=== PATIENT | male | born 1970 | race Caucasian/White ===

== ENCOUNTER 2019-02-01 21:31 | Inpatient (IN) | payer SELFPAY ==
[~2019-02-01] VITALS: Ht 188 cm; Wt 99.8 kg
[2019-02-01] MEDS: LIDOCAINE DRIP 500 ML IV SCH ×2 (21:15→22:15)
[2019-02-01] MEDS: LIDOCAINE BOLUS 100 MG/5 ML (IMS) SYR IV ONE ×2 (21:15→22:15)
[~2019-02-01 21:31] MED LIST: ACHD5005 PO; AMOX500C2 PO; ASPIRIN 81 MG CHEW (CHILDREN'S ASA) ONE; FLT05NA16 NSEACH; HEParin 1000 UNIT/ML (10ML VIAL) FOR BOLUS ONE; HYDR-3731 PO; morphine INJ 10 MG/ML 1ML (SYR OR VIAL) ONE
[2019-02-01] MEDS ORDERED: HEParin DRIP 25000 UNIT/500ML 500 ML IV ONE (21:32)
[2019-02-01] MEDS ORDERED: morphine INJ 10 MG/ML 1ML (SYR OR VIAL) IV STA (21:34)
[2019-02-01] MEDS ORDERED: ASPIRIN 81 MG CHEW (CHILDREN'S ASA) PO ONE (21:45)
--- NOTE | 2019-02-01 21:51 | ED Chest Pain ---
General Chief Complaint: Chest Pain Stated Complaint: CHEST PAIN,SOB Source: patient History of Present Illness Date Seen by Provider: Feb 01, 2019 Time Seen by Provider: 21:31 Initial Comments PT ARRIVES VIA POV FORM HOME C/O SUDDEN ONSET OF CHEST PAIN, SHORTNESS OF BREATH, PAIN AND NUMBNESS IN LEFT ARM, PAIN IN LEFT SHOULDER BLADE AREA + SWEATS + NAUSEA, NO VOMITING + SHORTNESS OF BREATH NO SWELLING IN LEGS/FEET OR PAIN IN CALVES NO HISTORY OF SIMILAR PT DENIES ANY PRIOR MEDICAL PROBLEMS OF ANY KIND PT SMOKES 1 PPD, USES THC AND METH ON REGULAR BASIS--LAST SMOKED METH 3 DAYS AGO. DENIES IV USE DENIES ETOH PCP: NONE Allergies and Home Medications Allergies Coded Allergies: No Known Drug Allergies (Unverified , 05/29/11) Home Medications Fluticasone Propionate 16 Gm [place], 2 SPRAYS NSEACH DAILY Prescribed by: OSBALDO PIRES on 09/19/12 1019 Hydrocodone/Acetaminophen 1 Each Tablet, 1 EACH PO Q4H Prescribed by: DELVIN LOBATO on 03/19/16 1257 Patient Home Medication List Home Medication List Reviewed: Yes Review of Systems Review of Systems Constitutional: see HPI, diaphoresis Respiratory: See HPI, Shortness of Air Cardiovascular: See HPI, Chest Pain; Denies Edema, Denies Lightheadedness, Denies Palpitations, Denies Syncope Gastrointestinal: See HPI, Nausea; Denies Vomiting Genitourinary: No Symptoms Reported Musculoskeletal: see HPI Skin: no symptoms reported Psychiatric/Neurological: Anxiety Endocrine: No Symptoms Reported Hematologic/Lymphatic: No Symptoms Reported Past Fbbavoe-Rsjcpw-Gknwnw Hx Patient Social History Alcohol Use: Denies Use Recreational Drug Use: Yes (SMOKES METH AND THC) Drug of Choice: METH, THC Smoking Status: Current Everyday Smoker (1 PPD) Type Used: Cigarettes Recent Foreign Travel: No Contact w/Someone Who Travel: No Recent Hopitalizations: No Seasonal Allergies Seasonal Allergies: No Past Medical History Surgeries: Yes (LEFT SHOULDER BICEPS TENDON) Orthopedic Respiratory: No Cardiac: No Neurological: No Genitourinary: No Gastrointestinal: No Musculoskeletal: Yes (LEFT SHOULDER SURGERY) Endocrine: No HEENT: No Cancer: No Psychosocial: No Integumentary: No Blood Disorders: No Family Medical History Heart Disease, Diabetes Physical Exam Vital Signs Vital Signs - First Documented 02/01/19 21:32 Temp 97.6 Pulse 92 Resp 18 B/P (MAP) 114/80 (91) Pulse Ox 99 O2 Delivery Room Air Capillary Refill : Height, Weight, BMI Height: 6'" Weight: 220lbs. oz. 99.805039di; BMI Method:Stated General Appearance: Anxious, Mild Distress, Other (CONSTANT MOVEMENTS, REEKS OF CIGARETTES) HEENT: Other (POOR DENTITION) Neck: Full Range of Motion, Normal Inspection, Non Tender, Supple; No Carotid Bruit, No JVD Respiratory: Chest Non Tender, Normal Breath Sounds, No Accessory Muscle Use, No Respiratory Distress Cardiovascular: Regular Rate, Rhythm, No Edema, No JVD, No Murmur, Normal Peripheral Pulses Gastrointestinal: Normal Bowel Sounds, No Organomegaly, No Pulsatile Mass, Non Tender, Soft Extremity: Normal Capillary Refill, Normal Inspection, Normal Range of Motion, Non Tender, No Calf Tenderness, No Pedal Edema Neurologic/Psychiatric: Alert, Oriented x3, No Motor/Sensory Deficits, 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 II- XII Norm as Tested Skin: Cool, Diaphoresis, Pallor Critical Care Note Critical Care Start Time: 21:31 Stop Time: 22:20 Total Time (minutes) 49 Progress SEE NOTES Progress/Results/Core Measures Results/Orders Lab Results Laboratory Tests Test 02/01/19 21:38 Range/Units White Blood Count 10.1 4.3-11.0 10^3/uL Red Blood Count 4.86 4.35-5.85 10^6/uL Hemoglobin 14.7 13.3-17.7 G/DL Hematocrit 43 40-54 % Mean Corpuscular Volume 88 80-99 FL Mean Corpuscular Hemoglobin 30 25-34 PG Mean Corpuscular Hemoglobin Concent 34 32-36 G/DL Red Cell Distribution Width 13.7 10.0-14.5 % Platelet Count 370 130-400 10^3/uL Mean Platelet Volume 9.7 7.4-10.4 FL Neutrophils (%) (Auto) 45 42-75 % Lymphocytes (%) (Auto) 41 12-44 % Monocytes (%) (Auto) 12 0-12 % Eosinophils (%) (Auto) 2 0-10 % Basophils (%) (Auto) 0 0-10 % Neutrophils # (Auto) 4.5 1.8-7.8 X 10^3 Lymphocytes # (Auto) 4.2 H 1.0-4.0 X 10^3 Monocytes # (Auto) 1.2 H 0.0-1.0 X 10^3 Eosinophils # (Auto) 0.2 0.0-0.3 10^3/uL Basophils # (Auto) 0.0 0.0-0.1 10^3/uL Prothrombin Time 13.9 12.2-14.7 SEC INR Comment 1.0 0.8-1.4 Activated Partial Thromboplast Time 26 24-35 SEC Sodium Level 141 135-145 MMOL/L Potassium Level 3.6 3.6-5.0 MMOL/L Chloride Level 105 98-107 MMOL/L Carbon Dioxide Level 22 21-32 MMOL/L Anion Gap 14 5-14 MMOL/L Blood Urea Nitrogen 15 7-18 MG/DL Creatinine 0.91 0.60-1.30 MG/DL Estimat Glomerular Filtration Rate > 60 BUN/Creatinine Ratio 16 Glucose Level 72 70-105 MG/DL Calcium Level 10.3 H 8.5-10.1 MG/DL Corrected Calcium 10.1 8.5-10.1 MG/DL Magnesium Level 1.6 1.6-2.4 MG/DL Total Bilirubin 0.3 0.1-1.0 MG/DL Aspartate Amino Transf (AST/SGOT) 13 5-34 U/L Alanine Aminotransferase (ALT/SGPT) 11 0-55 U/L Alkaline Phosphatase 81 40-136 U/L Total Creatine Kinase 80 30-200 U/L Creatine Kinase MB 2.0 <6.6 NG/ML Myoglobin 26.9 10.0-92.0 NG/ML Troponin I 0.179 H <0.028 NG/ML B-Type Natriuretic Peptide 14.2 <100.0 PG/ML Total Protein 7.3 6.4-8.2 GM/DL Albumin 4.3 3.2-4.5 GM/DL Amylase Level 64 25-125 U/L Lipase 23 8-78 U/L Serum Alcohol < 10 <10 MG/DL My Orders Orders - ALYSSA ANAYA DO Cbc With Automated Diff (02/01/19 21:34) Magnesium (02/01/19 21:34) Chest 1 View, Ap/Pa Only (02/01/19 21:34) Ekg Tracing (02/01/19 21:34) Cardiac Profile 1 (02/01/19 21:34) Comprehensive Metabolic Panel (02/01/19 21:34) Myoglobin Serum (02/01/19 21:34) Protime With Inr (02/01/19:34) Partial Thromboplastin Time (02/01/19:34) O2 (02/01/19:34) Monitor-Rhythm Ecg Trace Only (02/01/19:34) Lipid Panel (02/02/19 06:00) Ed Iv/Invasive Line Start (02/01/19:34) Creatine Kinase (02/01/19:34) Creatine Kinase Mb (02/01/19:34) Lipase (02/01/19:34) Amylase (02/01/19:34) BNP (02/01/19:34) Aspirin Chewable Tablet (Baby Aspirin Ch (02/01/19 21:45) Morphine Injection (Morphine Injection (02/01/19:34) Heparin (Bolus Per Protocol) (Heparin (B (02/01/19 21:45) Morphine Injection (Morphine Injection (02/01/19:31) Heparin (Bolus Per Protocol) (Heparin (B (02/01/19 21:31) Heparin Drip 10508 Unit/500ml (Heparin (02/01/19 21:32) Alcohol (02/01/19 21:49) Drug Screen Stat (Urine) (02/01/19 21:49) Ua Culture If Indicated (02/01/19 21:49) Clopidogrel Tablet (Plavix Tablet) (02/01/19 22:00) Clopidogrel Tablet (Plavix Tablet) (02/01/19 21:55) Lidocaine 1% Inj 20 Ml (Xylocaine 1% Inj (02/01/19 21:57) Heparin (Bolus Per Protocol) (Heparin (B (02/01/19 21:57) Ns Iv 1000 Ml (Sodium Chloride 0.9%) (02/01/19 21:57) Nitro Drip 49254 Mcg/D5w (Nitroglycerin (02/01/19 21:57) Heparin (Crown Wheel Assembler) (Heparin (Crown Wheel Assembler)) (02/01/19 21:57) Medications Given in ED Current Medications Medications Dose Ordered Sig/Maggie Route Start Time Stop Time Status Last Admin Dose Admin Aspirin 324 mg ONCE ONCE PO 02/01/19 21:45 02/01/19 21:46 DC 02/01/19 21:32 324 MG Clopidogrel Bisulfate 300 mg ONCE ONCE PO 02/01/19 22:00 02/01/19 22:02 DC 02/01/19 22:02 300 MG Vital Signs/I&O 02/01/19 02/01/19 02/01/19 21:32 21:34 21:42 Temp 97.6 Pulse 92 Resp 18 B/P (MAP) 114/80 (91) Pulse Ox 99 96 O2 Delivery Room Air Room Air Room Air Progress Progress Note : Progress Note PT GIVEN ASPIRIN NTG HELD DUE TO BP 106 SYSTOLIC GIVEN MORPHINE X 8 MG TOTAL WITHOUT SIGNIFICANT RELIEF IN PAIN PT STARTED ON HEPARIN--GIVEN BOLUS AND THEN PLACED ON DRIP GIVEN PLAVIX 300 MG PO PT NOTED TO BE IN BI-AND TRI-GEMINY, WITH R-ON-T COMPLEXES 2207--CALLED DR. ALMAZAN AND INFORMED HIM--AGREED TO LIDOCAINE BOLUS AND DRIP 2209--WENT IN ROOM AND PT NOTED TO BE IN V-FIB, AND SUDDENLY BECAME UNRESPONSIVE, PULSELESS AND SNORING BREATHING. PT IMMEDIATELY DEFIBRILLATED AT 120 JOULES WITH IMMEDIATE ROSC, PT AWAKE AND ABLE TO TALK. LIDOCAINE BOLUS GIVEN, DRIP BEING HUNG 2213--RUN OF V-TACH WITH PULSE, PT REMAINED AWAKE AND ALERT AND TALKING 2113--ANOTHER RUN OF V-TACH WITH PULSE, AGAIN REMAINED AWAKE AND ALERT AND TALKING 2114--ANOTHER RUN OF V-TACH WITH PULSE, AGAIN REMAINED AWAKE AND ALERT AND TALKING--GIVEN AMIODARONE BOLUS 2219--BAILING MACHINE OPERATOR STAFF HERE TO TAKE PT. Initial ECG Impression Date: Feb 01, 2019 Initial ECG Impression Time: 21:34 Initial ECG Rate: 80 Initial ECG Impression: Acute LA (EXTENSIVE ANTERIOR INFARCT) Initial ECG Comparisson: No Previous ECG Available Diagnostic Imaging Comments CXR--MILD VASCULAR CONGESTION Reviewed: Reviewed by Me Departure Communication (Admissions) 2133--PAGING DR. ALMAZAN, ASSISTANT REAL ESTATE MANAGER LOGISTICS RESEARCH ENGINEER 2136--SPOKE WITH DR. ALMAZAN, ADVISES TO CALL IN BAILING MACHINE OPERATOR 2137--CALLED CHIEF CHEMIST AND WILL CALL IN BAILING MACHINE OPERATOR 2156--DR. ALMAZAN HERE, CARE TURNED OVER TO HIM Impression Primary Impression: ANTERIOR STEMI Additional Impressions: Illicit drug use Ventricular fibrillation Ventricular tachycardia S/P CARDIAC ARREST DUE TO VENTRICULAR FIBRILLATION Disposition: ADMITTED INPATIENT (TO BAILING MACHINE OPERATOR) Condition: Stable Admissions Decision to Admit Reason: Admit from ER (General) (TO BAILING MACHINE OPERATOR) Decision to Admit/Date: Feb 01, 2019 Time/Decision to Admit Time: 21:35 Departure-Patient Inst. Referrals: NO,LOCAL PHYSICIAN (PCP/Family) Primary Care Physician ALYSSA ANAYA DO Feb 01, 2019 21:51
[2019-02-01 21:54] LABS: BASOPHILS % (AUTO) 0 % (0-10); EOSINOPHILS # (AUTO) 0.2 10^3/uL (0.0-0.3); EOSINOPHILS % (AUTO) 2 % (0-10); HEMATOCRIT 43 % (40-54); HEMOGLOBIN 14.7 G/DL (13.3-17.7); LYMPHOCYTES # (AUTO) 4.2 X 10^3 (1.0-4.0); LYMPHOCYTES % (AUTO) 41 % (12-44); MEAN CORPUSCULAR HEMOGLOBIN 30 PG (25-34); MEAN CORPUSCULAR HGB CONC 34 G/DL (32-36); MEAN CORPUSCULAR VOLUME 88 FL (80-99); MEAN PLATELET VOLUME 9.7 FL (7.4-10.4); MONOCYTES # (AUTO) 1.2 X 10^3 (0.0-1.0); MONOCYTES % (AUTO) 12 % (0-12); NEUTROPHILS # (AUTO) 4.5 X 10^3 (1.8-7.8); NEUTROPHILS % (AUTO) 45 % (42-75); PLATELET COUNT 370 10^3/uL (130-400); RED CELL DISTRIBUTION WIDTH 13.7 % (10.0-14.5); WHITE BLOOD COUNT 10.1 10^3/uL (4.3-11.0)
[2019-02-01] MEDS: HEParin 1000 UNIT/ML (10ML VIAL) FOR BOLUS IV SCH ×2 (21:54→21:56)
[2019-02-01] MEDS ORDERED: CLOPIDOGREL 300 MG (PLAVIX) TABLET PO ONE ×3 (21:55→23:06)
[2019-02-01] MEDS ORDERED: HEParin 1000 UNIT/ML (10ML VIAL) FOR BOLUS ONE (21:57)
[2019-02-01] MEDS ORDERED: LIDOCAINE 1% INJ 20 ML 20 ML VIAL ONE (21:57)
[2019-02-01] MEDS ORDERED: NS IV 1000 ML 1,000 ML ONE ×2 (21:57→23:10)
[2019-02-01] MEDS ORDERED: HEParin (CATH LAB) 2,000 ML IV ONE (21:57)
[2019-02-01] MEDS ORDERED: NITRO DRIP 25000 MCG/D5W 250 ML IV ONE (21:57)
[2019-02-01 22:05] LABS: PROTHROMBIN TIME PATIENT 13.9 SEC (12.2-14.7)
[2019-02-01] MEDS ORDERED: MIDAZOLAM 5 MG/5 ML (VERSED) VIAL ONE (22:06)
[2019-02-01] MEDS ORDERED: fentaNYL INJECTION 100 MCG/2 ML AMP ONE (22:06)
--- NOTE | 2019-02-01 22:09 | Cardiology History & Physical ---
HPI-Cardiology Cardiology H&P Date of Admission 02/01/19 Primary Care Physician No,Local Physician Attending Physician Consulting Physician HPI CC: Chest pain HPI: 48 yo with onset of severe, midsternal chest pain approx one hour ago. It has been associated with diaphoresis and some shortness of breath. Has had nausea. No vomiting or diarrhea. No palp or syncope. Never experienced such pain before. Chronic smoker of cigarettes. Uses marijuana and methamphetamine. Last meth use 4 days ago. Last marijuana use yesterday. Review of Systems-Cardiology Review of Systems Constitutional: No weight loss, No weight gain Eyes: No vision change Ears/Nose/Throat: No ear discharge, No nasal drainage, No recent hearing loss, No ulcerations Respiratory: As described under HPI Cardiovascular: As described under HPI Gastrointestinal: As described under HPI Genitourinary: No dysuria, No hematuria, No urine frequency changes Musculoskeletal: No back pain, No joint pain Skin: No rash, No ulcerations Hematologic: No bleeding abnormalities TUT-Kbgiut-Ewsuas Hx Patient Social History Alcohol Use: Denies Use Recreational Drug Use: Yes (SMOKES METH AND THC) Drug of Choice: METH, THC Smoking Status: Current Everyday Smoker (1 PPD) Type Used: Cigarettes Recent Foreign Travel: No Recent Infectious Disease Expo: No Hospitalization with Isolation: Denies Past Medical History PMH As described under Assessment. Family Medical History Family Medical History: Fam h/o DM II No fam h/o early CAD or SCD Allergies and Home Medications Allergies Coded Allergies: No Known Drug Allergies (Unverified , 05/29/11) Home Medications Fluticasone Propionate 16 Gm [place], 2 SPRAYS NSEACH DAILY Prescribed by: OSBALDO PIRES on 09/19/12 1019 Hydrocodone/Acetaminophen 1 Each Tablet, 1 EACH PO Q4H Prescribed by: DELVIN LOBATO on 03/19/16 1257 Patient Home Medication List Home Medication List Reviewed: Yes Physical Exam-Cardiology Physical Exam Vital Signs/I&O 02/01/19 02/01/19 02/01/19 21:32 21:34 21:42 Temp 97.6 Pulse 92 Resp 18 B/P (MAP) 114/80 (91) Pulse Ox 99 96 O2 Delivery Room Air Room Air Room Air Capillary Refill : Less Than 3 Seconds Constitutional: AAO x 3, well-developed, well-nourished, other (diaphoretic) HEENT: PERRL, EOMI, hearing is well preserved; No xanthelasmas are seen Neck: carotid pulses are 2 + bilaterally, with good upstrokes Respiratory: No accessory muscle use; other (good bilat air entry) Cardiovascular: regular rate-rhythm, S1 and S2, systolic murmur (soft JEREL at card base) Gastrointestinal: No tender; soft; No guarding, No rebound; audible bowel manuel nds Extremities: No clubbing, No cyanosis, No significant edema Neurologic/Psychiatric: oriented x 3, other (moving all limbs equally), grossly intact Skin: No rash, No ulcerations Data Review Labs Laboratory Tests 02/01/19 21:38: White Blood Count 10.1, Red Blood Count 4.86, Hemoglobin 14.7, Hematocrit 43, Mean Corpuscular Volume 88, Mean Corpuscular Hemoglobin 30, Mean Corpuscular Hem oglobin Concent 34, Red Cell Distribution Width 13.7, Platelet Count 370, Mean Platelet Volume 9.7, Neutrophils (%) (Auto) 45, Lymphocytes (%) (Auto) 41, Monocytes (%) (Auto) 12, Eosinophils (%) (Auto) 2, Basophils (%) (Auto) 0, Neutrophils # (Auto) 4.5, Lymphocytes # (Auto) 4.2H, Monocytes # (Auto) 1.2H, Eosinophils # (Auto) 0.2, Basophils # (Auto) 0.0 Laboratory Tests 02/01/19 21:38 A/P-Cardiology Assessment/Admission Diagnosis Acute anterolateral ST elevation MD Chronic tobacco and meth use Admission Status: Inpatient Order (span 2 midnights) Reason for Inpatient Admission: Ac STEMI Discussion and Recomendations Emergency card cath I discussed the rationale, procedure, risks, benefits, potential complications and alternatives of card cath and possible ad hoc cor intervention with him. He understands and wishes to proceed Treat with ASA, Plavix, iv heparin. Beta-cheryl when bp improved (currently SBP 100 mmHg) ALETHEA ALMAZAN MD FACP FAC CCDS Feb 01, 2019 22:09
--- NOTE | 2019-02-01 22:10 | NUR ---
2210- PT IN VTACH. DR. ANAYA AT BEDSIDE. SHOCK AT 120J 2214- VTACH VFIB WITH PULSE 2215- VTACH WITH PULSE 2215- AMIODARONE 300MG ADMINISTERED. LIDOCAINE 100 MG AND LIDOCAINE DRIP STARTED 0- PT TO TEACHER DANCING. Addendum: 02/02/19 at 0014 by [id number] patient is in V Fib shock @ 120 J
[2019-02-01 22:12] LABS: ALANINE AMINOTRANSFERASE 11 U/L (0-55); ALBUMIN 4.3 GM/DL (3.2-4.5); ALKALINE PHOSPHATASE 81 U/L (40-136); AMYLASE 64 U/L (25-125); BILIRUBIN,TOTAL 0.3 MG/DL (0.1-1.0); BUN/CREATININE RATIO 16; CALCIUM 10.3 MG/DL (8.5-10.1); CARBON DIOXIDE 22 MMOL/L (21-32); CHLORIDE 105 MMOL/L (98-107); CREATINE KINASE 80 U/L (30-200); CREATININE SERUM 0.91 MG/DL (0.60-1.30); GFR ESTIMATED > 60; GLUCOSE 72 MG/DL (70-105); LIPASE 23 U/L (8-78); MAGNESIUM 1.6 MG/DL (1.6-2.4); POTASSIUM 3.6 MMOL/L (3.6-5.0); SODIUM 141 MMOL/L (135-145); TOTAL PROTEIN 7.3 GM/DL (6.4-8.2)
[2019-02-01] MEDS ORDERED: EPTIFIBATIDE BOLUS 20 ML IV ONE (22:22)
[2019-02-01] MEDS ORDERED: HEParin (CATH LAB) 1,000 ML IV ONE (22:30)
[2019-02-01] MEDS ORDERED: DOPamine DRIP 250 ML IV ONE (22:56)
[2019-02-01] MEDS: NS IV 1000 ML 1,000 ML IV SCH ×2 (23:00→23:23)
--- NOTE | 2019-02-01 23:34 | Cardiac Procedure Note-CS/ASA ---
Pre-Procedure Note Pre-Op Procedure Note H&P Reviewed The H&P was reviewed, patient examined and no changes noted. Date H&P Reviewed: Feb 01, 2019 Time H&P Reviewed: 22:00 Conscious Sedation Pre-Proced Time 22:00 ASA Score 4 For ASA 3 and 4: Consider anesthesia and medical clearance. Also, for patients with a history of failed moderate sedation consider anesthesia. Airway Lungs Heart ASA score ASA 1: a normal healthy patient ASA 2: a patient with a mild systemic disease (mid diabetes, controlled hypertension, obesity ASA 3: a patient with a severe systemic disease that limits activity (angina, COPD, prior Myocardial infarction) ASA 4: a patient with an incapacitating disease that is a constant threat to life (CHF, renal failure) ASA 5: a moribund patient not expected to survive 24 hrs. (ruptured aneurysm) ASA 6: a declared brain- patient whose organs are being harvested. For emergent operations, add the letter E after the classification Mallampati Classification Grade 2 Sedation Plan Analgesia, Amnesia, Plan communicated to team members, Discussed options with patient/fam, Discussed risks with patient/fam The patient is an appropriate candidate to undergo the planned procedure, sedation, and anesthesia. The patient immediately re-assessed prior to indication. ALETHEA ALMAZAN MD FACP FAC CCDS Feb 01, 2019 23:34
[2019-02-01 23:41] VITALS: BP 103/58
[2019-02-01 23:45] VITALS: BP 96/59
[2019-02-01] MEDS ORDERED: TEMAZEPAM 7.5 MG CAP (RESTORIL) PO PRN (23:45)
[2019-02-01] MEDS ORDERED: PATIENT MAY USE OWN MEDS, ALL PO SCH (23:45)
[2019-02-01] MEDS ORDERED: ACETAMINOPHEN 325 MG TABLET PO PRN (23:45)
[2019-02-02] VITALS (12 sets, daily range): BP systolic 87–122; BP diastolic 66–75
--- NOTE | 2019-02-02 00:12 | CARDIAC CATHETERIZATION ---
DATE OF SERVICE: 02/01/2019 CARDIAC CATHETERIZATION AND CORONARY INTERVENTION REPORT The patient is a 48-year-old man who presented to the emergency room with acute anterolateral ST elevation myocardial infarction. An emergency cardiac catheterization was carried out after having obtained informed consent for cardiac catheterization, possible ad hoc coronary intervention. DESCRIPTION OF PROCEDURE: He was brought to the cardiac catheterization laboratory. Right groin was prepared and draped in the usual sterile fashion. A 1% lidocaine was used for local anesthesia. Modified Seldinger technique was used to advance a 6-Slovenian sheath in the right femoral artery. He had received 5000 units of intravenous heparin in the emergency room and 1000 units per hour infusion was being given, which was stopped at the time of initiation of the cardiac catheterization procedure. We used a 6-Slovenian JL4 guide catheter to engage the left coronary artery and angiography showed ostial occlusion of the left anterior descending. Intervention was carried out as described below. He received a double bolus of Integrilin during the intervention. Following completion of the intervention, we carried out angiography of the right femoral artery, for which we used a 6-Slovenian JR4 catheter. We performed left heart catheterization with a 6-Slovenian pigtail catheter and left ventricular angiography was performed. The pigtail was pulled back and then removed. Angiography of the right femoral artery was carried out through the sheath and Mynx was used to achieve hemostasis following completion of the procedure. PERCUTANEOUS INTERVENTION OF THE ANTERIOR DESCENDING: Following completion of the left coronary diagnostic procedure, we carried out percutaneous intervention of the left anterior descending, which was exhibiting ostial occlusion of the left anterior descending. We used a ChoICE floppy wire to cross the lesion with moderate difficulty. The tip of the wire was placed in the distal vessel. As we were getting ready to advance a balloon, the patient went into ventricular fibrillation. A shock was given. The patient jerked and the catheter and the wire were displaced. We removed the wire and again advanced the guide catheter over a wire and engaged the left coronary and then advanced the ChoICE floppy wire again across the lesion with moderate difficulty and the tip was placed in the distal vessel. We carried out balloon angioplasty at the site of occlusion with Emerge 2.0 x 20 mm balloon. This allowed good antegrade flow into the left anterior descending and we were able to visualize the whole vessel. The balloon was removed. There was still 90% stenosis at the site of the lesion. We advanced Alpine Xience 2.75 x 18 stent. This was carefully positioned to cover the ostial and proximal left anterior descending without projecting the stent into the left circumflex. The stent was deployed at 14 atmospheres. Subsequent angiography revealed 0% residual stenosis and flow throughout the vessel is normal. Flow prior to the procedure was KIRT 0. Following the intervention, flow in the left anterior descending is KIRT 3. The left circumflex artery has a large obtuse marginal that exhibits 80% distal stenosis. This was not intervened on at this time. HEMODYNAMICS: Left ventricular end-diastolic pressure following coronary angiography and coronary intervention was 20 mmHg. Systolic pressure at the time of left heart catheterization was 60 mmHg. There was no significant pressure gradient on pullback across the aortic valve. LEFT VENTRICULAR ANGIOGRAPHY: Left ventricular angiography was carried out in the right anterior oblique projection. In this view, the left ventricular systolic function appears well preserved with an ejection fraction of approximately 55%. There appears to be mild anterolateral hypokinesis. CORONARY ANGIOGRAPHY: Left main coronary artery is free of significant disease. There is proximal and mid vessel calcification of the coronary arteries. Left anterior descending artery was occluded at its ostium. This vessel was intervened on. Following deployment of Alpine Xience 2.75 x 18 mm stent, deployed at 14 atmospheres, there is no significant residual stenosis. Flow throughout the vessel is normal. The left circumflex artery has a large obtuse marginal, which was exhibiting 80% bifurcation stenosis in its distal portion. This was not intervened on. Right coronary artery is dominant and has mild plaque. CONCLUSIONS: 1. Coronary artery disease consisting of complete ostial occlusion of the left anterior descending artery to which successful percutaneous coronary intervention was carried out. Following deployment of Alpine Xience 2.75 x 18 mm stent, there is no significant residual stenosis. A large obtuse marginal of the left circumflex shows 80% bifurcation stenosis in its distal portion. Right coronary artery is dominant and has mild disease. 2. Elevated left ventricular end-diastolic pressure. 3. Well-preserved global left ventricular systolic function with ejection fraction approximately 55%. DISCUSSION AND RECOMMENDATIONS: Dual antiplatelet therapy has been initiated. Statin therapy is being initiated. Because of low blood pressure, he is a suitable candidate for beta blockers at this time. Beta blockers will be given when tolerated by blood pressure. We have advised him to quit smoking immediately and completely. We have advised him to quit the use of amphetamine and any other street drugs immediately and completely. Job ID: [id number] DocumentID: [id number] Dictated Date: 02/01/2019 23:30:06 Ribbon Lap Machine Tender Date: 02/02/2019 00:12:13 Dictated By: ALETHEA ALMAZAN MD, MA, FACP, FACC, MTDD
[2019-02-02] MEDS: NS IV 1000 ML 1,000 ML IV SCH ×3 (02:39→19:32)
[2019-02-02] MEDS: DOPamine DRIP 250 ML IV SCH (02:39)
[2019-02-02 03:38] LABS: BILIRUBIN,URINE NEGATIVE (NEGATIVE); CLARITY,URINE CLEAR; COLOR,URINE YELLOW; GLUCOSE, URINE (UA) NEGATIVE (NEGATIVE); KETONES,URINE NEGATIVE (NEGATIVE); LEUKOCYTE ESTERASE ,URINE 1+ (NEGATIVE); NITRITE,URINE NEGATIVE (NEGATIVE); PH,URINE 5 (5-9); PROTEIN,URINE 2+ (NEGATIVE); UROBILINOGEN,URINE NORMAL (NORMAL)
[2019-02-02 03:47] LABS: HEMOGLOBIN 14.6 G/DL (13.3-17.7); MEAN PLATELET VOLUME 9.6 FL (7.4-10.4); RED CELL DISTRIBUTION WIDTH 13.8 % (10.0-14.5); WHITE BLOOD COUNT 11.9 10^3/uL (4.3-11.0)
[2019-02-02 03:50] LABS: AMPHETAMINE SCREEN, URINE POSITIVE (NEGATIVE); BARBITURATE SCREEN URINE NEGATIVE (NEGATIVE); BENZODIAZEPINES SCREEN URINE NEGATIVE (NEGATIVE); CANNABINOID SCREEN, URINE POSITIVE (NEGATIVE); COCAINE SCREEN URINE NEGATIVE (NEGATIVE); METHADONE STAT NEGATIVE (NEGATIVE); METHAMPHETAMINE SCREEN URINE S POSITIVE (NEGATIVE); OPIATE SCREEN URINE POSITIVE (NEGATIVE); OXYCODONE STAT NEGATIVE (NEGATIVE); PROPOXYPHENE STAT NEGATIVE (NEGATIVE); TRICYCLIC ANTIDEPRESSANTS SCRE NEGATIVE (NEGATIVE)
[2019-02-02 03:52] LABS: BACTERIA,URINE NEGATIVE /HPF; WBC,URINE RARE /HPF
[2019-02-02 04:09] LABS: BUN/CREATININE RATIO 19; CALCIUM 9.4 MG/DL (8.5-10.1); CARBON DIOXIDE 23 MMOL/L (21-32); CHLORIDE 107 MMOL/L (98-107); CREATININE SERUM 0.86 MG/DL (0.60-1.30); GFR ESTIMATED > 60; GLUCOSE 132 MG/DL (70-105); POTASSIUM 4.3 MMOL/L (3.6-5.0); SODIUM 141 MMOL/L (135-145)
[2019-02-02 04:12] LABS: CHOLESTEROL 183 MG/DL (< 200); HDL CHOLESTEROL 39 MG/DL (40-60); TRIGLYCERIDES 77 MG/DL (<150); VLDL CHOLESTEROL 15 MG/DL (5-40)
[2019-02-02] MEDS ORDERED: ATORVASTATIN 40 MG (LIPITOR) TABLET PO SCH (07:00)
--- NOTE | 2019-02-02 07:29 | Diagnostic Imaging Report ---
INDICATION: Chest pain. Comparison made with prior examination from 09/19/2012. FINDINGS: The heart size is normal. There is mild venous congestion. There is no pleural effusion or pneumothorax. The mediastinum is unremarkable. IMPRESSION: Mild central pulmonary venous congestion. Dictated by: Dictated on workstation # [id number]
[2019-02-02] MEDS ORDERED: 0.9% SODIUM CHLORIDE PF INJ 10 ML VIAL IV ONE (07:38)
[2019-02-02] MEDS ORDERED: AMIODARONE (OMNICELL DRIP KIT) 150 MG/3 ML IV ONE (07:38)
[2019-02-02] MEDS ORDERED: AMIODARONE 450 MG/9 ML (CORDARONE) VIAL IV ONE (07:38)
[2019-02-02] MEDS: ASPIRIN 81 MG CHEW (CHILDREN'S ASA) PO SCH (07:49)
[2019-02-02] MEDS: CLOPIDOGREL 75 MG (PLAVIX) TABLET PO SCH (07:49)
[2019-02-02] MEDS: meTOprolol TARTRATE 25 MG (LOPRESSOR) TABLET PO SCH ×2 (07:49→21:49)
[2019-02-02] MEDS ORDERED: ONDANSETRON 4 MG/2 ML (SDV) Z0FRAN ONE (07:51)
[2019-02-02] MEDS ORDERED: ONDANSETRON 4 MG/2 ML (SDV) Z0FRAN IVP PRN (09:15)
--- NOTE | 2019-02-02 10:53 | NUR ---
Initial visit: No spiritual affiliation. I offered empathic listening as the pt shard about his symptoms and decision to go the the hospital. He said his cousin Prudence was his ride, and is also present for support. He thanked me for visiting him and allowing him to share.
--- NOTE | 2019-02-02 12:18 | Progress Note - Cardiology ---
Cardiology SOAP Progress Note Subjective: Some chest soreness None of the kind of chest pain he presented with No shortness of breath at rest Nausea and one episode of vomiting this am (threw up this am's ASA and clopidogrel) No palp or syncope since being on the cardiac floor Objective: I&O/Vital Signs 02/02/19 02/02/19 02/02/19 02/02/19 00:15 00:30 00:40 00:45 Pulse 84 83 72 81 Resp 52 58 36 B/P (MAP) 87/68 (74) 95/67 (76) 96/68 (77) Pulse Ox 98 94 94 O2 Delivery Nasal Cannula Nasal Cannula Nasal Cannula O2 Flow Rate 2.00 2.00 2.00 02/02/19 02/02/19 02/02/19 02/02/19 01:00 02:00 02:39 03:00 Pulse 79 77 77 Resp 29 20 30 B/P (MAP) 97/67 (77) 95/67 (76) 97/67 96/67 (77) Pulse Ox 94 93 96 O2 Delivery Nasal Cannula Nasal Cannula Nasal Cannula O2 Flow Rate 2.00 2.00 2.00 02/02/19 02/02/19 02/02/19 02/02/19 04:00 04:00 04:00 07:00 Pulse 79 76 Resp 29 B/P (MAP) 97/66 (76) Pulse Ox 93 94 O2 Delivery Nasal Cannula O2 Flow Rate 2.00 2.00 02/02/19 02/02/19 02/02/19 02/02/19 08:00 08:00 08:00 09:00 Pulse 85 Resp 9 B/P (MAP) 98/75 (83) Pulse Ox 95 98 O2 Delivery Room Air Room Air Room Air Weight (Pounds): 231 Weight (Ounces): 0.5 Weight (Calculated Kilograms): 104.392156 Constitutional: AAO x 3, well-developed, well-nourished, other (diaphoretic) Respiratory: No accessory muscle use; other (good bilat air entry) Cardiovascular: regular rate-rhythm, S1 and S2, systolic murmur (soft JEREL at card base) Gastrointestional: No tender; soft; No guarding, No rebound; audible bowel sounds Extremities: No clubbing, No cyanosis, No significant edema Neurologic/Psychiatric: oriented x 3, other (moving all limbs equally), grossly intact Skin: No rash, No ulcerations Results/Procedures: Labs Laboratory Tests 02/01/19 21:38: White Blood Count 10.1, Red Blood Count 4.86, Hemoglobin 14.7, Hematocrit 43, Mean Corpuscular Volume 88, Mean Corpuscular Hemoglobin 30, Mean Corpuscular Hemoglobin Concent 34, Red Cell Distribution Width 13.7, Platelet Count 370, Mean Platelet Volume 9.7, Neutrophils (%) (Auto) 45, Lymphocytes (%) (Auto) 41, Monocytes (%) (Auto) 12, Eosinophils (%) (Auto) 2, Basophils (%) (Auto) 0, Neutrophils # (Auto) 4.5, Lymphocytes # (Auto) 4.2H, Monocytes # (Auto) 1.2H, Eosinophils # (Auto) 0.2, Basophils # (Auto) 0.0, Prothrombin Time 13.9, INR Comment 1.0, Activated Partial Thromboplast Time 26, Sodium Level 141, Potassium Level 3.6, Chloride Level 105, Carbon Dioxide Level 22, Anion Gap 14, Blood Urea Nitrogen 15, Creatinine 0.91, Estimat Glomerular Filtration Rate > 60, BUN/Creatinine Ratio 16, Glucose Level 72, Calcium Level 10.3H, Corrected Calcium 10.1, Magnesium Level 1.6, Total Bilirubin 0.3, Aspartate Amino Transf (AST/SGOT) 13, Alanine Aminotransferase (ALT/SGPT) 11, Alkaline Phosphatase 81, Total Creatine Kinase 80, Creatine Kinase MB 2.0, Myoglobin 26.9, Troponin I 0.179H, B-Type Natriuretic Peptide 14.2, Total Protein 7.3, Albumin 4.3, Amylase Level 64, Lipase 23, Serum Alcohol < 10 02/02/19 03:30: Urine Color YELLOW, Urine Clarity CLEAR, Urine pH 5, Urine Specific [place] 1.015L, Urine Protein 2+H, Urine Glucose (UA) NEGATIVE, Urine Ketones NEGATIVE, Urine Nitrite NEGATIVE, Urine Bilirubin NEGATIVE, Urine Urobilinogen NORMAL, Urine Leukocyte Esterase 1+H, Urine RBC (Auto) 4+H, Urine RBC 5-10H, Urine WBC RARE, Urine Squamous Epithelial Cells 2-5, Urine Crystals NONE, Urine Bacteria NEGATIVE, Urine Casts NONE, Urine Mucus NEGATIVE, Urine Culture Indicated NO, Urine Opiates Screen POSITIVEH, Urine Oxycodone Screen NEGATIVE, Urine Methadone Screen NEGATIVE, Urine Propoxyphene Screen NEGATIVE, Urine Barbiturates Screen NEGATIVE, Ur Tricyclic Antidepressants Screen NEGATIVE, Urine Phencyclidine Screen NEGATIVE, Urine Amphetamines Screen POSITIVEH, Urine Methamphetamines Screen POSITIVEH, Urine Benzodiazepines Screen NEGATIVE, Urine Cocaine Screen NEGATIVE, Urine Cannabinoids Screen POSITIVEH 02/02/19 03:37: White Blood Count 11.9H, Red Blood Count 4.81, Hemoglobin 14.6, Hematocrit 43, Mean Corpuscular Volume 89, Mean Corpuscular Hemoglobin 30, Mean Corpuscular Hemoglobin Concent 34, Red Cell Distribution Width 13.8, Platelet Count 284, Mean Platelet Volume 9.6, Sodium Level 141, Potassium Level 4.3, Chloride Level 107, Carbon Dioxide Level 23, Anion Gap 11, Blood Urea Nitrogen 16, Creatinine 0.86, Estimat Glomerular Filtration Rate > 60, BUN/Creatinine Ratio 19, Glucose Level 132H, Calcium Level 9.4, Triglycerides Level 77, Cholesterol Level 183, LDL Cholesterol Direct 148H, VLDL Cholesterol 15, HDL Cholesterol 39L A/P: Assessment: Acute anterolateral ST elevation [place] Card cath on 02/01/19: Coronary artery disease consisting of complete ostial occlusion of the left anterior descending artery to which successful percutaneous coronary intervention was carried out. Following deployment of Alpine Xience 2.75 x 18 mm stent, there is no significant residual stenosis. A large obtuse marginal of the left circumflex shows 80% bifurcation stenosis in its distal portion. Right coronary artery is dominant and has mild disease. Elevated left ventricular end-diastolic pressure. Well preserved global left ventricular systolic function with ejection fraction approximately 55%. Chronic tobacco and meth use Plan: Emergency card cath I discussed the rationale, procedure, risks, benefits, potential complications and alternatives of card cath and possible ad hoc cor intervention with him. He understands and wishes to proceed Treat with ASA, Plavix, iv heparin. Beta-cheryl when bp improved (currently SBP 100 mmHg) Physician Assessment Physician Assessment * I had a detailed discussion with him regarding cath findings and interventions undertaken * Zofran prn for N/V * Repeat ASA and Plavix because he threw them up this am * Increase ambulation * Advised to refrain from smoking or meth use ALETHEA ALMAZAN MD FACP [facility] CCDS Feb 02, 2019 12:18
[2019-02-02] MEDS ORDERED: CLOPIDOGREL 75 MG (PLAVIX) TABLET PO NR (12:30)
[2019-02-02] MEDS ORDERED: ASPIRIN 81 MG CHEW (CHILDREN'S ASA) PO NR (12:30)
[2019-02-02] MEDS: ENOXAPARIN 40 MG/0.4 ML (LOVENOX) SYR SC SCH (13:28)
[2019-02-02] MEDS: ATORVASTATIN 40 MG (LIPITOR) TABLET PO SCH (21:49)
[2019-02-02] MEDS: LIDOCAINE DRIP 500 ML IV SCH (23:43)
[2019-02-03] VITALS: BP 110/65
[2019-02-03] MEDS: DOPamine DRIP 250 ML IV SCH (02:48)
[2019-02-03 03:30] VITALS: BP 110/79
[2019-02-03] MEDS: NS IV 1000 ML 1,000 ML IV SCH (07:50)
[2019-02-03 08:00] VITALS: BP 100/81
[2019-02-03] MEDS: meTOprolol TARTRATE 25 MG (LOPRESSOR) TABLET PO SCH ×2 (08:10→20:15)
[2019-02-03] MEDS: CLOPIDOGREL 75 MG (PLAVIX) TABLET PO SCH (08:10)
[2019-02-03] MEDS: ASPIRIN 81 MG CHEW (CHILDREN'S ASA) PO SCH (08:10)
--- NOTE | 2019-02-03 11:35 | Progress Note - Cardiology ---
Cardiology SOAP Progress Note Subjective: No cp or palp or syncope Gen malaise improving Objective: I&O/Vital Signs 02/03/19 02/03/19 02/03/19 02/03/19 00:00 00:00 01:00 03:30 Temp 98.6 97.2 Pulse 92 87 93 Resp 13 12 B/P (MAP) 110/65 (80) 110/79 (89) Pulse Ox 97 98 95 O2 Delivery Room Air Room Air 02/03/19 02/03/19 02/03/19 02/03/19 04:00 07:00 08:00 08:00 Pulse 87 75 B/P (MAP) 100/81 (87) Pulse Ox 98 98 98 O2 Delivery Room Air 02/03/19 02/03/19 08:00 09:00 Temp 98.8 Pulse 101 Resp 16 B/P (MAP) 100/81 (87) Pulse Ox 97 O2 Delivery Room Air Room Air 02/03/19 00:00 Intake Total 520 ml Output Total 675 ml Balance -155 ml Weight (Pounds): 228 Weight (Ounces): 6.0 Weight (Calculated Kilograms): 103.576988 Constitutional: AAO x 3, well-developed, well-nourished, other (diaphoretic) Respiratory: No accessory muscle use; other (good bilat air entry) Cardiovascular: regular rate-rhythm, S1 and S2, systolic murmur (soft JEREL at card base) Gastrointestional: No tender; soft; No guarding, No rebound; audible bowel sounds Extremities: No clubbing, No cyanosis, No significant edema Neurologic/Psychiatric: oriented x 3, other (moving all limbs equally), grossly intact Skin: No rash, No ulcerations Results/Procedures: Labs Laboratory Tests 02/01/19 21:38 02/02/19 03:37 A/P: Assessment: Acute anterolateral ST elevation [place] Card cath on 02/01/19: Coronary artery disease consisting of complete ostial occlusion of the left anterior descending artery to which successful percutaneous coronary intervention was carried out. Following deployment of Alpine Xience 2.75 x 18 mm stent, there is no significant residual stenosis. A large obtuse marginal of the left circumflex shows 80% bifurcation stenosis in its distal portion. Right coronary artery is dominant and has mild disease. Elevated left ventricular end-diastolic pressure. Well preserved global left ventricular systolic function with ejection fraction approximately 55%. Chronic tobacco and meth use Plan: * Continue current regimen * Not able to increase bb or add POLA-inhib/ARB because of low-normal bp * We again advised him to completely d/c tobacco and meth * Transfer to [facility] and increase ambulation ALETHEA ALMAZAN MD FACP FAC CCDS Feb 03, 2019 11:35
[2019-02-03] MEDS: ENOXAPARIN 40 MG/0.4 ML (LOVENOX) SYR SC SCH (11:56)
--- NOTE | 2019-02-03 12:50 | NUR ---
PT TRANSFERRED TO ROOM 430. REPORT GIVEN TO HEMALATHA. NO QUESTIONS OR CONCERNS VOICED.
--- NOTE | 2019-02-03 12:52 | NUR ---
PATIENT TO FLOOR AT THIS TIME, VIA W/C.
--- NOTE | 2019-02-03 12:55 | NUR ---
REPORT TAKEN FROM CHRISTOPH CHIRINOS AND Eloy LUJAN RN AT THIS TIME.
[2019-02-03 15:15] VITALS: BP 100/68
[2019-02-03 20:00] VITALS: BP 117/80
[2019-02-03] MEDS: ATORVASTATIN 40 MG (LIPITOR) TABLET PO SCH (20:15)
[2019-02-04 00:19] VITALS: BP 94/62
[2019-02-04 04:00] VITALS: BP 103/73
[2019-02-04 05:56] LABS: BASOPHILS % (AUTO) 0 % (0-10); EOSINOPHILS % (AUTO) 1 % (0-10); HEMATOCRIT 42 % (40-54); HEMOGLOBIN 14.2 G/DL (13.3-17.7); LYMPHOCYTES % (AUTO) 24 % (12-44); MEAN CORPUSCULAR HEMOGLOBIN 30 PG (25-34); MEAN CORPUSCULAR HGB CONC 34 G/DL (32-36); MEAN CORPUSCULAR VOLUME 88 FL (80-99); MEAN PLATELET VOLUME 10.3 FL (7.4-10.4); MONOCYTES # (AUTO) 1.3 X 10^3 (0.0-1.0); MONOCYTES % (AUTO) 15 % (0-12); NEUTROPHILS # (AUTO) 5.2 X 10^3 (1.8-7.8); NEUTROPHILS % (AUTO) 61 % (42-75); PLATELET COUNT 264 10^3/uL (130-400); RED CELL DISTRIBUTION WIDTH 13.5 % (10.0-14.5); WHITE BLOOD COUNT 8.5 10^3/uL (4.3-11.0)
[2019-02-04 06:17] LABS: BUN/CREATININE RATIO 17; CALCIUM 9.3 MG/DL (8.5-10.1); CARBON DIOXIDE 22 MMOL/L (21-32); CHLORIDE 105 MMOL/L (98-107); CREATININE SERUM 0.96 MG/DL (0.60-1.30); GFR ESTIMATED > 60; GLUCOSE 90 MG/DL (70-105); MAGNESIUM 1.5 MG/DL (1.6-2.4); POTASSIUM 3.9 MMOL/L (3.6-5.0); SODIUM 139 MMOL/L (135-145)
[2019-02-04 08:00] VITALS: BP 93/64
--- NOTE | 2019-02-04 08:24 | NUR ---
B/P THIS A.M. WAS 93/64 PULSE WAS 90. THIS RN WILL REPORT THE HYPOTENSION TO DR. BECERRA. SEE CHART FOR DETAILS.
[2019-02-04] MEDS: meTOprolol TARTRATE 25 MG (LOPRESSOR) TABLET PO SCH ×2 (08:52→21:24)
[2019-02-04] MEDS: ASPIRIN 81 MG CHEW (CHILDREN'S ASA) PO SCH (08:52)
[2019-02-04] MEDS: CLOPIDOGREL 75 MG (PLAVIX) TABLET PO SCH (08:52)
[2019-02-04] MEDS ORDERED: ENALAPRIL 2.5 MG (VASOTEC) TAB PO ONE (11:30)
[2019-02-04] MEDS ORDERED: meTOprolol TARTRATE 25 MG (LOPRESSOR) TABLET PO ONE (11:30)
--- NOTE | 2019-02-04 11:49 | Progress Note - Cardiology ---
Cardiology SOAP Progress Note Subjective: No cp or palp or syncope or shortness of breath at rest Gen malaise and weakness Objective: I&O/Vital Signs 02/04/19 02/04/19 02/04/19 02/04/19 00:00 00:19 01:00 04:00 Temp 99.3 100.1 Pulse 92 77 92 Resp 18 20 B/P (MAP) 94/62 (73) 103/73 (83) Pulse Ox 97 100 O2 Delivery Room Air Room Air Room Air 02/04/19 02/04/19 02/04/19 02/04/19 04:00 07:00 07:36 08:00 Temp 98.1 Pulse 94 90 Resp 18 B/P (MAP) 93/64 (74) Pulse Ox 100 97 O2 Delivery Room Air Room Air Room Air O2 Flow Rate 2.00 02/04/19 09:05 O2 Delivery Room Air 02/03/19 23:59 Intake Total 500 ml Balance 500 ml Weight (Pounds): 228 Weight (Ounces): 6.0 Weight (Calculated Kilograms): 103.816097 Constitutional: AAO x 3, well-developed, well-nourished, other (diaphoretic) Respiratory: No accessory muscle use; other (good bilat air entry) Cardiovascular: regular rate-rhythm, S1 and S2, systolic murmur (soft JEREL at card base) Gastrointestional: No tender; soft; No guarding, No rebound; audible bowel sounds Extremities: No clubbing, No cyanosis, No significant edema Neurologic/Psychiatric: oriented x 3, other (moving all limbs equally), grossly intact Skin: No rash, No ulcerations Results/Procedures: Labs Laboratory Tests 02/04/19 05:15: White Blood Count 8.5, Red Blood Count 4.71, Hemoglobin 14.2, Hematocrit 42, Mean Corpuscular Volume 88, Mean Corpuscular Hemoglobin 30, Mean Corpuscular Hemoglobin Concent 34, Red Cell Distribution Width 13.5, Platelet Count 264, Mean Platelet Volume 10.3, Neutrophils (%) (Auto) 61, Lymphocytes (%) (Auto) 24, Monocytes (%) (Auto) 15H, Eosinophils (%) (Auto) 1, Basophils (%) (Auto) 0, Neutrophils # (Auto) 5.2, Lymphocytes # (Auto) 2.0, Monocytes # (Auto) 1.3H, Eosinophils # (Auto) 0.0, Basophils # (Auto) 0.0, Sodium Level 139, Potassium Level 3.9, Chloride Level 105, Carbon Dioxide Level 22, Anion Gap 12, Blood Urea Nitrogen 16, Creatinine 0.96, Estimat Glomerular Filtration Rate > 60, BUN/Creatinine Ratio 17, Glucose Level 90, Calcium Level 9.3, Magnesium Level 1.5L A/P: Assessment: Acute anterolateral ST elevation [place] Card cath on 02/01/19: Coronary artery disease consisting of complete ostial occl usion of the left anterior descending artery to which successful percutaneous coronary intervention was carried out. Following deployment of Alpine Xience 2.75 x 18 mm stent, there is no significant residual stenosis. A large obtuse marginal of the left circumflex shows 80% bifurcation stenosis in its distal portion. Right coronary artery is dominant and has mild disease. Elevated left ventricular end-diastolic pressure. Well preserved global left ventricular systolic function with ejection fraction approximately 55% Ischemic cardiomyopathy. Echo on 02/04/19: LVEF 40-45%, anteroseptal hypokinesis, mild conc LVH, RVSP 20 mmHg Chronic tobacco and meth use Hypomagnesemia Plan: * Replenish magnesium * Try to add very low dose of enalapril * Continue low-dose cheryl * Relatively low bp is the impediment in increasing the dose of beta-cheryl and POLA-inhibitor * We again advised him to completely d/c tobacco and meth * Ambulate ad jeanne while keeping on tele ALETHEA ALMAZAN MD FACP [facility] CCDS Feb 04, 2019 11:49
[2019-02-04 12:00] VITALS: BP 103/73
[2019-02-04] MEDS: MAGNESIUM 1 GM/100 ML IVPB 100 ML IV SCH ×2 (12:03→12:04)
[2019-02-04] MEDS: ENOXAPARIN 40 MG/0.4 ML (LOVENOX) SYR SC SCH (12:07)
--- NOTE | 2019-02-04 12:36 | NUR ---
PRIOR TO ENALIPRIL AND METOPROLOL BP WAS 103/73, PULSE 82
[2019-02-04 16:13] VITALS: BP 107/69
[2019-02-04 20:11] VITALS: BP 121/83
[2019-02-04] MEDS: ATORVASTATIN 40 MG (LIPITOR) TABLET PO SCH (21:25)
[2019-02-04] MEDS: ENALAPRIL 2.5 MG (VASOTEC) TAB PO SCH (21:25)
[2019-02-05 00:40] VITALS: BP 97/50
[2019-02-05 04:05] VITALS: BP 116/62
[2019-02-05 05:52] LABS: BASOPHILS % (AUTO) 0 % (0-10); EOSINOPHILS # (AUTO) 0.1 10^3/uL (0.0-0.3); EOSINOPHILS % (AUTO) 1 % (0-10); HEMATOCRIT 40 % (40-54); HEMOGLOBIN 13.7 G/DL (13.3-17.7); LYMPHOCYTES # (AUTO) 1.9 X 10^3 (1.0-4.0); LYMPHOCYTES % (AUTO) 23 % (12-44); MEAN CORPUSCULAR HEMOGLOBIN 30 PG (25-34); MEAN CORPUSCULAR HGB CONC 34 G/DL (32-36); MEAN CORPUSCULAR VOLUME 88 FL (80-99); MEAN PLATELET VOLUME 10.3 FL (7.4-10.4); MONOCYTES # (AUTO) 1.2 X 10^3 (0.0-1.0); MONOCYTES % (AUTO) 15 % (0-12); NEUTROPHILS # (AUTO) 4.9 X 10^3 (1.8-7.8); NEUTROPHILS % (AUTO) 61 % (42-75); PLATELET COUNT 242 10^3/uL (130-400); RED CELL DISTRIBUTION WIDTH 13.2 % (10.0-14.5); WHITE BLOOD COUNT 8.1 10^3/uL (4.3-11.0)
[2019-02-05 06:12] LABS: ALANINE AMINOTRANSFERASE 42 U/L (0-55); ALKALINE PHOSPHATASE 63 U/L (40-136); BILIRUBIN,TOTAL 0.4 MG/DL (0.1-1.0); BUN/CREATININE RATIO 23; CALCIUM 9.1 MG/DL (8.5-10.1); CARBON DIOXIDE 22 MMOL/L (21-32); CHLORIDE 105 MMOL/L (98-107); CREATININE SERUM 0.87 MG/DL (0.60-1.30); GFR ESTIMATED > 60; GLUCOSE 98 MG/DL (70-105); MAGNESIUM 2.1 MG/DL (1.6-2.4); POTASSIUM 3.9 MMOL/L (3.6-5.0); SODIUM 138 MMOL/L (135-145); TOTAL PROTEIN 6.9 GM/DL (6.4-8.2)
[2019-02-05 08:00] VITALS: BP 97/67
--- NOTE | 2019-02-05 08:13 | NUR ---
BP 97/67, PULSE 79. LOPRESSOR AND VASOTEC GIVEN PER ORDERS.
[2019-02-05] MEDS: CLOPIDOGREL 75 MG (PLAVIX) TABLET PO SCH (08:20)
[2019-02-05] MEDS: ENALAPRIL 2.5 MG (VASOTEC) TAB PO SCH (08:21)
[2019-02-05] MEDS: meTOprolol TARTRATE 25 MG (LOPRESSOR) TABLET PO SCH (08:21)
[2019-02-05] MEDS: ASPIRIN 81 MG CHEW (CHILDREN'S ASA) PO SCH (08:22)
--- NOTE | 2019-02-05 09:00 | Progress Note - Cardiology ---
Cardiology SOAP Progress Note Subjective: Sitting up in a recliner at the bedside. Denies any c/o CP, palpitations, dyspnea, syncope or near syncope. States he has been ambulating in the halls without difficulty. Objective: I&O/Vital Signs 02/05/19 02/05/19 02/05/19 02/05/19 00:40 01:00 04:05 07:00 Temp 98.2 99.5 Pulse 80 78 80 80 Resp 20 20 B/P (MAP) 97/50 (66) 116/62 (80) Pulse Ox 97 96 O2 Delivery Room Air 02/05/19 02/05/19 08:00 09:06 Temp 98.4 Pulse 79 Resp 20 B/P (MAP) 97/67 (77) Pulse Ox 98 O2 Delivery Room Air Room Air 02/05/19 00:00 Intake Total 1500 ml Balance 1500 ml Weight (Pounds): 220 Weight (Ounces): 0.9 Weight (Calculated Kilograms): 99.046761 Constitutional: AAO x 3, well-developed, well-nourished, other (diaphoretic) Respiratory: No accessory muscle use; lungs clear to auscultation Cardiovascular: regular rate-rhythm, S1 and S2, systolic murmur (soft JEREL at card base) Gastrointestional: No tender; soft; No guarding, No rebound; audible bowel sounds Extremities: No clubbing, No cyanosis, No significant edema Neurologic/Psychiatric: oriented x 3, grossly intact Skin: No rash, No ulcerations Results/Procedures: Labs Laboratory Tests 02/05/19 05:25: White Blood Count 8.1, Red Blood Count 4.53, Hemoglobin 13.7, Hematocrit 40, Mean Corpuscular Volume 88, Mean Corpuscular Hemoglobin 30, Mean Corpuscular Hemoglobin Concent 34, Red Cell Distribution Width 13.2, Platelet Count 242, Mean Platelet Volume 10.3, Neutrophils (%) (Auto) 61, Lymphocytes (%) (Auto) 23, Monocytes (%) (Auto) 15H, Eosinophils (%) (Auto) 1, Basophils (%) (Auto) 0, Neutrophils # (Auto) 4.9, Lymphocytes # (Auto) 1.9, Monocytes # (Auto) 1.2H, Eosinophils # (Auto) 0.1, Basophils # (Auto) 0.0, Sodium Level 138, Potassium Level 3.9, Chloride Level 105, Carbon Dioxide Level 22, Anion Gap 11, Blood Urea Nitrogen 20H, Creatinine 0.87, Estimat Glomerular Filtration Rate > 60, BUN/Creatinine Ratio 23, Glucose Level 98, Calcium Level 9.1, Corrected Calcium 9.1, Magnesium Level 2.1, Total Bilirubin 0.4, Aspartate Amino Transf (AST/SGOT) 60H, Alanine Aminotransferase (ALT/SGPT) 42, Alkaline Phosphatase 63, Total Protein 6.9, Albumin 4.0 A/P: Assessment: Acute anterolateral ST elevation [place] on 02/01/19, treated with primary PCI Card cath on 02/01/19: Coronary artery disease consisting of complete ostial occlusion of the left anterior descending artery to which successful percutaneous coronary intervention was carried out. Following deployment of Alpine Xience 2.75 x 18 mm stent, there is no significant residual stenosis. A large obtuse marginal of the left circumflex shows 80% bifurcation stenosis in its distal portion. Right coronary artery is dominant and has mild disease. Elevated left ventricular end-diastolic pressure. Well preserved global left ventricular systolic function with ejection fraction approximately 55% Ischemic cardiomyopathy. Echo on 02/04/19: LVEF 40-45%, anteroseptal hypokinesis, mild conc LVH, RVSP 20 mmHg Chronic tobacco and meth use Hypomagnesemia, corrected Plan: * Tolerating very low dose of enalapril * Continue low-dose cheryl * Relatively low bp is the impediment in increasing the dose of beta-cheryl and POLA-inhibitor * We again advised him to completely d/c tobacco and meth * horticultural services supervisor consult for discharge planning * Discussed importance of medication compliance Physician Assessment Physician Assessment Feels well and wishes to go home A&O x 3 today Lungs: fair air entry, somewhat prolonged exp Cor: reg Ext: no c/c/edema A&R * As documented in our note above that I updated (italics) and as noted below * Continue current regimen * I had a long and detailed discussion with him and advised him to refrain from tobacco and met use and to be compliant with meds. We discussed the rationale of each med and the need for compliance * We have advised close clinical f/u for now * Questions answered in detail Time spent with patient: 9:25 - 10:05 MARGARITO IBANEZ Feb 05, 2019 09:00 ALETHEA ALMAZAN MD FACP [facility]AC CCDS Feb 05, 2019 11:18
[2019-02-05] MEDS ORDERED: METO-333 PO (09:07)
[2019-02-05] MEDS ORDERED: CLOP75TA28 PO (09:07)
[2019-02-05] MEDS ORDERED: ASPI-999 PO (09:07)
[2019-02-05] MEDS ORDERED: ATOR40TA PO (09:07)
[2019-02-05] MEDS ORDERED: ENAL2.5T PO (09:07)
[2019-02-05 12:00] VITALS: BP 94/60
[2019-02-05] MEDS: ENOXAPARIN 40 MG/0.4 ML (LOVENOX) SYR SC SCH (13:17)
--- NOTE | 2019-02-05 14:32 | NUR ---
CM/SS there was concern that patient may not be able to afford his medications. Had [facility] and they should be around $30/40. Patient stated that he will be able to afford this.
--- NOTE | 2019-02-05 14:56 | Discharge Inst-Cardiology ---
Discharge Inst-Cardiac Discharge Medications New Medications: Aspirin (Aspirin) 81 Mg Tab.chew 81 MG PO DAILY, #90 TAB 3 Refills Atorvastatin Calcium (Lipitor) 40 Mg Tablet 40 MG PO HS, #30 TAB 5 Refills Clopidogrel Bisulfate (Clopidogrel) 75 Mg Tablet 75 MG PO DAILY, #90 TAB 3 Refills Enalapril Maleate (Enalapril Maleate) 2.5 Mg Tablet 1.25 MG PO BID, #60 TAB 5 Refills Metoprolol Tartrate (Metoprolol Tartrate) 25 Mg Tablet 12.5 MG PO BID, #60 TAB 5 Refills Continued Medications: Fluticasone Propionate (Flonase 0.05% Nasal [place]) 16 Gm [place] 2 SPRAYS NSEACH DAILY, #1 1 Refill NS Hydrocodone/Acetaminophen (Lortab 10-325 mg Tablet) 1 Each Tablet 1 EACH PO Q4H, #20 TAB New, Converted or Re-Newed RX: Transmitted to Pharmacy Patient Instructions Patient Instructions: Please schedule follow up appointment to see Dr. Luna in one week Orders-Post D/C & Referrals Pneu Vac Indicated: Yes MARGARITO IBANEZ Feb 05, 2019 14:56
--- NOTE | 2019-02-05 15:01 | Cardiology Discharge Summary ---
Diagnosis/Chief Complaint Date of Admission Feb 01, 2019 at 23:40 Date of Discharge Feb 05, 2019 Admission Diagnosis Acute anterolateral ST elevation CT Chronic tobacco and meth use Final/Discharge Diagnosis Acute anterolateral ST elevation CT on 02/01/19, treated with primary PCI Card cath on 02/01/19: Coronary artery disease consisting of complete ostial occlusion of the left anterior descending artery to which successful percutaneous coronary intervention was carried out. Following deployment of Alpine Xience 2.75 x 18 mm stent, there is no significant residual stenosis. A large obtuse marginal of the left circumflex shows 80% bifurcation stenosis in its distal portion. Right coronary artery is dominant and has mild disease. Elevated left ventricular end-diastolic pressure. Well preserved global left ventricular systolic function with ejection fraction approximately 55% Ischemic cardiomyopathy. Echo on 02/04/19: LVEF 40-45%, anteroseptal hypokinesis, mild conc LVH, RVSP 20 mmHg Chronic tobacco and meth use Hypomagnesemia, corrected Chief Complaint/HPI Chief Complaint/HPI CC: Chest pain HPI: 48 yo with onset of severe, midsternal chest pain approx one hour ago. It has been associated with diaphoresis and some shortness of breath. Has had rodolfo sea. No vomiting or diarrhea. No palp or syncope. Never experienced such pain before. Chronic smoker of cigarettes. Uses marijuana and methamphetamine. Last meth use 4 days ago. Last marijuana use yesterday. Discharge Summary Procedures Cardiac cath on Feb 01, 2019. Please refer to Dr. Luna's cardiac cath report for details. Discharge Physical Examination Please refer to progress note of 02-05-2019 Hospital Course Labs Laboratory Tests 02/04/19 05:15 02/05/19 05:25 Discussion & Recommendations Discussion Continue current regimen I had a long and detailed discussion with him and advised him to refrain from tobacco and met use and to be compliant with meds. We discussed the rationale of each med and the need for compliance We have advised close clinical f/u for now Questions answered in detail Follow up appt.: Schedule follow up appointment to see Dr. Luna in 2 weeks Home Medications Reviewed patient Home Medication Reconciliation performed by pharmacy medication reconciliations product development technician and/or nursing. Patients Allergies have been reviewed. Discharge Home Medications: New Medications: Aspirin (Aspirin) 81 Mg Tab.chew 81 MG PO DAILY, #90 TAB 3 Refills Atorvastatin Calcium (Lipitor) 40 Mg Tablet 40 MG PO HS, #30 TAB 5 Refills Clopidogrel Bisulfate (Clopidogrel) 75 Mg Tablet 75 MG PO DAILY, #90 TAB 3 Refills Enalapril Maleate (Enalapril Maleate) 2.5 Mg Tablet 1.25 MG PO BID, #60 TAB 5 Refills Metoprolol Tartrate (Metoprolol Tartrate) 25 Mg Tablet 12.5 MG PO BID, #60 TAB 5 Refills Continued Medications: Fluticasone Propionate (Flonase 0.05% Nasal [place]) 16 Gm [place] 2 SPRAYS NSEACH DAILY, #1 1 Refill NS Hydrocodone/Acetaminophen (Lortab 10-325 mg Tablet) 1 Each Tablet 1 EACH PO Q4H, #20 TAB Clinical Quality Measures DVT/VTE Risk/Contraindication: Risk Factor Score Per Nursin RFS Level Per Nursing on Admit: 4+=Very High MARGARITO IBANEZ Feb 05, 2019 15:01
[2019-02-05 15:50] VITALS: BP 100/69
== END 2019-02-05 15:54 | disposition home or self-care (01) | DRG 246 ==
LOC: EDUNIT# 21:31 → ER 21:33 → CATH 22:06 → ICU 23:40 → 4TH 02-03 12:50
PROVIDERS: ADMIT Internal Medicine Cardiovascular Disease; ATTEND Internal Medicine Cardiovascular Disease
PROC: 027034Z Dilation of Coronary Artery, One Artery with Drug-eluting Intraluminal Device, Percutaneous Approach (ICD-10-PCS; principal; 2019-02-01)
PROC: 4A023N7 Measurement of Cardiac Sampling and Pressure, Left Heart, Percutaneous Approach (ICD-10-PCS; 2019-02-01)
PROC: B2111ZZ Fluoroscopy of Multiple Coronary Arteries using Low Osmolar Contrast (ICD-10-PCS; 2019-02-01)
PROC: B2151ZZ Fluoroscopy of Left Heart using Low Osmolar Contrast (ICD-10-PCS; 2019-02-01)
DX: I21.09 ST elevation (STEMI) myocardial infarction involving other coronary artery of anterior wall (principal); I25.10 Atherosclerotic heart disease of native coronary artery without angina pectoris; I46.9 Cardiac arrest, cause unspecified; I49.01 Ventricular fibrillation; I47.2 Ventricular tachycardia; I25.5 Ischemic cardiomyopathy; E83.42 Hypomagnesemia; F17.210 Nicotine dependence, cigarettes, uncomplicated; R00.8 Other abnormalities of heart beat; F41.9 Anxiety disorder, unspecified; F15.90 Other stimulant use, unspecified, uncomplicated; F12.90 Cannabis use, unspecified, uncomplicated
CPT/HCPCS: 36415; 71045; 80048; 80053; 80061; 80306; 80320; 81000; 82150; 82550; 82553; 83690; 83735; 83874; 83880; 84484; 85025; 85027; 85610; 85730; 93005; 93041; 93306; 93458; 96365; 96367; 96375

== ENCOUNTER 2019-02-07 16:46 | Inpatient (IN) | payer OTHER ==
[~2019-02-07] VITALS: Ht 188 cm; Wt 102.1 kg
[~2019-02-07 16:46] MED LIST changes: +ASPI-999 PO; -ASPIRIN 81 MG CHEW (CHILDREN'S ASA) ONE; +ATOR40TA PO; +CLOP75TA28 PO; +ENAL2.5T PO; -HEParin 1000 UNIT/ML (10ML VIAL) FOR BOLUS ONE; +METO-333 PO; -morphine INJ 10 MG/ML 1ML (SYR OR VIAL) ONE
[2019-02-07] MEDS ORDERED: NS IV 1000 ML 1,000 ML ONE ×2 (16:57→16:58)
[2019-02-07 16:58] LABS: BASOPHILS % (AUTO) 0 % (0-10); EOSINOPHILS # (AUTO) 0.1 10^3/uL (0.0-0.3); EOSINOPHILS % (AUTO) 1 % (0-10); HEMATOCRIT 41 % (40-54); HEMOGLOBIN 14.2 G/DL (13.3-17.7); LYMPHOCYTES # (AUTO) 1.9 X 10^3 (1.0-4.0); LYMPHOCYTES % (AUTO) 22 % (12-44); MEAN CORPUSCULAR HEMOGLOBIN 31 PG (25-34); MEAN CORPUSCULAR HGB CONC 35 G/DL (32-36); MEAN CORPUSCULAR VOLUME 88 FL (80-99); MEAN PLATELET VOLUME 9.9 FL (7.4-10.4); MONOCYTES % (AUTO) 12 % (0-12); NEUTROPHILS # (AUTO) 5.4 X 10^3 (1.8-7.8); NEUTROPHILS % (AUTO) 65 % (42-75); PLATELET COUNT 342 10^3/uL (130-400); RED CELL DISTRIBUTION WIDTH 13.5 % (10.0-14.5); WHITE BLOOD COUNT 8.4 10^3/uL (4.3-11.0)
[2019-02-07] MEDS ORDERED: HEParin (CATH LAB) 2,000 ML IV ONE (16:58)
[2019-02-07] MEDS ORDERED: LIDOCAINE 1% INJ 20 ML 20 ML VIAL ONE (16:58)
[2019-02-07] MEDS ORDERED: MIDAZOLAM 5 MG/5 ML (VERSED) VIAL ONE (16:58)
[2019-02-07] MEDS ORDERED: fentaNYL INJECTION 100 MCG/2 ML AMP ONE (16:58)
--- NOTE | 2019-02-07 17:00 | NUR ---
PROCEDURE CONSENT SIGNED BY PT AT THIS TIME
--- NOTE | 2019-02-07 17:00 | NUR ---
DR COPPOLA HERE TO SEE PT
--- NOTE | 2019-02-07 17:06 | Cardiac Procedure Note-CS/ASA ---
Pre-Procedure Note Pre-Op Procedure Note H&P Reviewed The H&P was reviewed, patient examined and no changes noted. Date H&P Reviewed: Feb 07, 2019 Time H&P Reviewed: 17:06 Conscious Sedation Pre-Proced Time 17:06 ASA Score 3 For ASA 3 and 4: Consider anesthesia and medical clearance. Also, for patients with a history of failed moderate sedation consider anesthesia. Airway Lungs Heart ASA score ASA 1: a normal healthy patient ASA 2: a patient with a mild systemic disease (mid diabetes, controlled hypertension, obesity x ASA 3: a patient with a severe systemic disease that limits activity (angina, COPD, prior Myocardial infarction) ASA 4: a patient with an incapacitating disease that is a constant threat to life (CHF, renal failure) ASA 5: a moribund patient not expected to survive 24 hrs. (ruptured aneurysm) ASA 6: a declared brain- patient whose organs are being harvested. For emergent operations, add the letter E after the classification Mallampati Classification Grade 3 Sedation Plan Analgesia, Amnesia, Plan communicated to team members, Discussed options with patient/fam, Discussed risks with patient/fam The patient is an appropriate candidate to undergo the planned procedure, sedation, and anesthesia. The patient immediately re-assessed prior to indication. RASHID COPPOLA MD Feb 07, 2019 17:06
[2019-02-07] MEDS ORDERED: NITRO DRIP 25000 MCG/D5W 250 ML IV ONE (17:08)
[2019-02-07] MEDS ORDERED: HEParin 1000 UNIT/ML (10ML VIAL) FOR BOLUS ONE (17:08)
--- NOTE | 2019-02-07 17:08 | ED Chest Pain ---
General Chief Complaint: Chest Pain Stated Complaint: STEMI Nursing Triage Note: PT AMBULATES TO RM 10 WITH COMPLAINTS OF LEFT SIDED CHEST PAIN 12/20. PT REPORTS HAVING STENTS LAST 02/01/19. PT TOOK 324MG OF ASA PRIOR TO ARRIVAL. PT IS A&O X4 AT THIS TIME. Nursing Sepsis Screen: No Definite Risk History of Present Illness Date Seen by Provider: Feb 07, 2019 Time Seen by Provider: 16:45 Initial Comments 48 Year old male began having chest pain approximately 45 minutes ago. He had stents placed by Dr. 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 He denies any nausea or vomiting but did become diaphoretic. He has been taking his Plavix 75 mg daily as directed he has not been taking aspirin as he is having financial problems. He is continuing to smoke but hasn't decreased usage to 5-7 cigarettes daily. He did take aspirin 325 mg four tablets po SIMULATION TECH. Timing/Duration: 1 hour Severity/Quality: moderate Location: substernal Radiation: shoulders, back Prior CP/Workup: cardiac cath ASA po SIMULATION TECH: Yes NTG SL SIMULATION TECH: No Associated Symptoms: No nausea/vomiting; shortness of breath, weakness Allergies and Home Medications Allergies Coded Allergies: No Known Drug Allergies (Unverified , 05/29/11) Home Medications Aspirin 81 Mg Tab.chew, 81 MG PO DAILY Prescribed by: MARGARITO IBANEZ on 02/05/19906 Clopidogrel Bisulfate 75 Mg Tablet, 75 MG PO DAILY Prescribed by: MARGARITO IBANEZ on 02/05/19 09 Patient Home Medication List Home Medication List Reviewed: Yes Review of Systems Review of Systems Constitutional: no symptoms reported, see HPI Cardiovascular: See HPI, Chest Pain Gastrointestinal: No Symptoms Reported, See HPI; Denies Nausea All Other Systems Reviewed Negative Unless Noted: Yes Past Vamasnq-Lmhvjn-Pmbjvr Hx Past Med/Social Hx: Reviewed Nursing Past Med/Soc Hx Patient Social History Drug of Choice: METH, THC Type Used: Cigarettes Recent Foreign Travel: No Contact w/Someone Who Travel: No Recent Infectious Disease Expo: No Recent Hopitalizations: No Seasonal Allergies Seasonal Allergies: No Past Medical History Surgeries: Yes (LEFT SHOULDER BICEPS TENDON) Orthopedic Respiratory: No Cardiac: No Neurological: No Genitourinary: No Gastrointestinal: No Musculoskeletal: Yes (LEFT SHOULDER SURGERY) Endocrine: No HEENT: No Cancer: No Psychosocial: No Integumentary: No Blood Disorders: No Family Medical History Diabetes mellitus 19 MOTHER, Onset:Unknown Myocardial infarction 19 MOTHER Heart Disease, Diabetes Physical Exam Vital Signs Vital Signs - First Documented 02/07/19 16:57 Temp 99.4 Pulse 120 Resp 14 B/P (MAP) 130/93 (105) Pulse Ox 99 O2 Delivery Room Air Capillary Refill : Less Than 3 Seconds Height, Weight, BMI Height: 6'2.00" Weight: 220lbs. 0.9oz. [id number]; 29.8 BMI Method:Stated General Appearance: No Apparent Distress, WD/WN HEENT: PERRL/EOMI, TMs Normal, Normal ENT Inspection, Pharynx Normal Neck: Full Range of Motion, Normal Inspection, Non Tender, Supple Respiratory: Chest Non Tender, Lungs Clear, Normal Breath Sounds Cardiovascular: Regular Rate, Rhythm, No Murmur, Normal Peripheral Pulses Gastrointestinal: Normal Bowel Sounds, Non Tender, Soft Extremity: Normal Capillary Refill, Normal Inspection, Normal Range of Motion, Non Tender, No Pedal Edema Neurologic/Psychiatric: Alert, Oriented x3, No Motor/Sensory Deficits, Normal Mood/Affect Skin: Normal Color, Warm/Dry Lymphatic: No Adenopathy Progress/Results/Core Measures Results/Orders Lab Results Laboratory Tests Test 02/07/19 16:52 Range/Units White Blood Count 8.4 4.3-11.0 10^3/uL Red Blood Count 4.65 4.35-5.85 10^6/uL Hemoglobin 14.2 13.3-17.7 G/DL Hematocrit 41 40-54 % Mean Corpuscular Volume 88 80-99 FL Mean Corpuscular Hemoglobin 31 25-34 PG Mean Corpuscular Hemoglobin Concent 35 32-36 G/DL Red Cell Distribution Width 13.5 10.0-14.5 % Platelet Count 342 130-400 10^3/uL Mean Platelet Volume 9.9 7.4-10.4 FL Neutrophils (%) (Auto) 65 42-75 % Lymphocytes (%) (Auto) 22 12-44 % Monocytes (%) (Auto) 12 0-12 % Eosinophils (%) (Auto) 1 0-10 % Basophils (%) (Auto) 0 0-10 % Neutrophils # (Auto) 5.4 1.8-7.8 X 10^3 Lymphocytes # (Auto) 1.9 1.0-4.0 X 10^3 Monocytes # (Auto) 1.0 0.0-1.0 X 10^3 Eosinophils # (Auto) 0.1 0.0-0.3 10^3/uL Basophils # (Auto) 0.0 0.0-0.1 10^3/uL Prothrombin Time 14.1 12.2-14.7 SEC INR Comment 1.0 0.8-1.4 Activated Partial Thromboplast Time 30 24-35 SEC Sodium Level 140 135-145 MMOL/L Potassium Level 3.5 L 3.6-5.0 MMOL/L Chloride Level 103 98-107 MMOL/L Carbon Dioxide Level 25 21-32 MMOL/L Anion Gap 12 5-14 MMOL/L Blood Urea Nitrogen 15 7-18 MG/DL Creatinine 1.19 0.60-1.30 MG/DL Estimat Glomerular Filtration Rate > 60 BUN/Creatinine Ratio 13 Glucose Level 134 H 70-105 MG/DL Calcium Level 10.0 8.5-10.1 MG/DL Corrected Calcium 8.5-10.1 MG/DL Magnesium Level 1.8 1.6-2.4 MG/DL Total Bilirubin 0.5 0.1-1.0 MG/DL Aspartate Amino Transf (AST/SGOT) 28 5-34 U/L Alanine Aminotransferase (ALT/SGPT) 31 0-55 U/L Alkaline Phosphatase 84 40-136 U/L Myoglobin 69.1 10.0-92.0 NG/ML Troponin I 14.801 *H <0.028 NG/ML Total Protein 8.2 6.4-8.2 GM/DL Albumin 4.6 H 3.2-4.5 GM/DL My Orders Orders - MARK RAWLS Cbc With Automated Diff (02/07/19 16:48) Magnesium (02/07/19 16:48) Chest 1 View, Ap/Pa Only (02/07/19 16:48) Ekg Tracing (02/07/19 16:48) Cardiac Profile 1 (02/07/19 16:48) Comprehensive Metabolic Panel (02/07/19 16:48) Myoglobin Serum (02/07/19 16:48) Protime With Inr (02/07/19 16:48) Partial Thromboplastin Time (02/07/19 16:48) O2 (02/07/19 16:48) Monitor-Rhythm Ecg Trace Only (02/07/19 16:48) Ed Iv/Invasive Line Start (02/07/19 16:48) Ua Culture If Indicated (02/07/19 16:52) Medications Given in ED Current Medications Medications Dose Ordered Sig/Maggie Route Start Time Stop Time Status Last Admin Dose Admin Heparin Sodium (Porcine) 5,000 units STK-MED ONCE .ROUTE 02/07/19 16:57 02/07/19 17:04 DC 02/07/19 17:03 5,000 UNITS Sodium Chloride 1,000 ml @ ud STK-MED ONCE .ROUTE 02/07/19 16:57 02/07/19 17:05 DC 02/07/19 17:04 1,000 MLS/HR Vital Signs/I&O 02/07/19 16:57 Temp 99.4 Pulse 120 Resp 14 B/P (MAP) 130/93 (105) Pulse Ox 99 O2 Delivery Room Air Blood Pressure Mean: 105 Progress Progress Note : Time: 16:45 Progress Note Patient seen and evaluated, will start chest pain workup including EKG, chest x- ray and labs. Patient took 1,300 mg orally of ASA just SIMULATION TECH. 1655 Dr. Almaraz in ED to evaluate patient. Ordered Heparin 5,000 Units IV. 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 1715 Increased pain and anxiety, will give Morphine 4 mg IV. Sinus rhythm 95- 105. 1730 aquatic laborer here to assume care of patient. Initial ECG Impression Date: Feb 07, 2019 Initial ECG Impression Time: 16:53 Initial ECG Rate: 107 Initial ECG Rhythm: S.Tach Initial ECG Intervals: Normal Initial ECG Intervals SC 164, QRSD a42, QT 364, QTc 486. Montgomery P 46, QRS 65, T -23 Initial ECG Impression: Acute WI Initial ECG Comparisson: Changed (anterior infarct acute) Comment Reviewed with Dr. Blancas, concurred with interpretation. Departure Impression Primary Impression: STEMI (ST elevation myocardial infarction) Qualified Codes: I21.3 - ST elevation (STEMI) myocardial infarction of unspecified site Additional Impression: Chest pain Qualified Codes: I25.9 - Chronic ischemic heart disease, unspecified Disposition: 09 ADMITTED INPATIENT Condition: Stable Admissions Decision to Admit Reason: Admit from ER (General) Decision to Admit/Date: Feb 07, 2019 Time/Decision to Admit Time: 17:00 Departure-Patient Inst. Referrals: NO,LOCAL PHYSICIAN (PCP/Family) Primary Care Physician Copy Copies To 1: ALTEHEA LUNA MD FACP FAC CCDS; RASHID ALMARAZ MD, AMY ARNP Feb 07, 2019 17:07
--- NOTE | 2019-02-07 17:11 | Cardiology History & Physical ---
HPI-Cardiology Cardiology Consultation Date of Consultation 02/07/19 Date of Admission Time Seen by Provider: 17:07 Indication: Chest pain HPI 48 years old gentleman with history of coronary artery disease, had myocardial infarction last week, emergency Cardec catheterization and stenting to the LAD. Discharge home, did not take his medicine, was taking only Plavix. Still an a ctive smoker. Start chest pain this afternoon and came into the emergency room. On my evaluation was feeling better. He had ST elevation in the anterior leads suggestive of acute myocardial infarction. PMH-Cardiology Seasonal Allergies Seasonal Allergies: No Surgeries Yes (LEFT SHOULDER BICEPS TENDON, HEART STENTS 02/01/19) Respiratory No Cardiovascular No Neurological No Genitourinary No Gastrointestinal No Musculoskeletal Yes (LEFT SHOULDER SURGERY) Endocrine No HEENT No Cancer No Psychosocial No Integumentary No Blood Transfusions No Social History Patient Social History Marrital Status: Employed/Student: unemployed Alcohol Use: Rarely Uses Recreational Drug Use: No Smoking: Current every day smoker Recent Foreign Travel: No Contact w/other who traveled: No Recent Infectious Disease Expo: No Family Hx Significant Family History: Heart Disease, Diabetes Family History: Diabetes mellitus 19 MOTHER, Onset:Unknown Myocardial infarction 19 MOTHER ROS-Cardiology Review of Systems General: No Chills, No Night Sweats, No Fatigue, No Malaise, No Appetite HEENT: No Head Aches, No Visual Changes, No Eye Pain, No Ear Pain, No Dysphasia, No Sinus Congestion, No Post Nasal Drip, No Sore Throat Pulmonary: No Dyspnea, No Cough, No Pleuritic Chest Pain Cardiovascular: Chest Pain; No: Palpitations, Orthopnea, Paroxysmal Noc. Dyspnea, Edema, Lt Headedness Gastrointestinal: No: Nausea, Vomiting, Abdominal Pain, Diarrhea, Constipation, Melena, Hematochezia Genitourinary: No Dysuria, No Frequency, No Incontinence, No Hematuria, No Retention Musculoskeletal: No: neck pain, shoulder pain, arm pain, back pain, hand pain, leg pain, foot pain Neurological: No: Weakness, Numbness, Incoordination, Change in speech, Confusion, Seizures Home Medications & Allergies Allergies: Coded Allergies: No Known Drug Allergies (Unverified , 05/29/11) Home Medication List Reviewed: Yes Exam-Cardiology Vital Signs Vital Signs Date Time Temp Pulse Resp B/P (MAP) Pulse Ox O2 Delivery O2 Flow Rate FiO2 02/07/19 17:04 99 Nasal Cannula 2.00 02/07/19 16:57 99.4 120 14 130/93 (105) Exam General Appearance: Alert, Oriented X3, Cooperative, No Acute Distress HEENT: Atraumatic, PERRLA Respiratory: Clear to Auscultation, Normal Air Movement Cardiovascular: Regular Rate, Normal S1, Normal S2, No Murmurs Abdominal: Normal Bowel Sounds, Soft, No Tenderness, No Hepatosplenomegaly, No Masses Extremities: No Clubbing, No Cyanosis, No Edema, Normal Pulses, No Tenderness/Swelling Skin: No Rashes, No Breakdown, No Significant Lesion Neuro: Normal Gait, Normal Speech, Strength at 5/5 X4 Ext, Normal Tone, Sensation Intact Psych/Mental Status: Mental Status NL, Mood NL Results Labs Labs Laboratory Tests 02/07/19 16:52: White Blood Count 8.4, Red Blood Count 4.65, Hemoglobin 14.2, Hematocrit 41, Mean Corpuscular Volume 88, Mean Corpuscular Hemoglobin 31, Mean Corpuscular Hemoglobin Concent 35, Red Cell Distribution Width 13.5, Platelet Count 342, Mean Platelet Volume 9.9, Neutrophils (%) (Auto) 65, Lymphocytes (%) (Auto) 22, Monocytes (%) (Auto) 12, Eosinophils (%) (Auto) 1, Basophils (%) (Auto) 0, Neutrophils # (Auto) 5.4, Lymphocytes # (Auto) 1.9, Monocytes # (Auto) 1.0, Eosinophils # (Auto) 0.1, Basophils # (Auto) 0.0 A/P-Cardiology Admission Diagnosis Acute ST elevation Mccartan function Coronary artery disease Hypertension Hyperlipidemia Admission Status: Inpatient Order (span 2 midnights) Reason for Inpatient Admission: Acute ST elevation myocardial infarction Assessment/Plan acute ST elevation myocardial infarct and anterior wall, recent RI, had Alpine 2.75 time 18 mm stent to the LAD done on February 01, [address] Luna after STEMI. Patient has been noncompliant with his medication, educated on importance of the compliance and emergency activation of the catheter lab. Hyperlipidemia, not taking any medication Tobaccoism, educated on smoking cessation History of meth use History of marijuana use next Noncompliant with medication RASHID COPPOLA MD Feb 07, 2019 17:11
[2019-02-07] MEDS ORDERED: morphine INJ 10 MG/ML 1ML (SYR OR VIAL) IVP STA (17:14)
[2019-02-07 17:16] LABS: PROTHROMBIN TIME PATIENT 14.1 SEC (12.2-14.7)
[2019-02-07 17:20] LABS: ALANINE AMINOTRANSFERASE 31 U/L (0-55); ALBUMIN 4.6 GM/DL (3.2-4.5); ALKALINE PHOSPHATASE 84 U/L (40-136); BILIRUBIN,TOTAL 0.5 MG/DL (0.1-1.0); BUN/CREATININE RATIO 13; CARBON DIOXIDE 25 MMOL/L (21-32); CHLORIDE 103 MMOL/L (98-107); CREATININE SERUM 1.19 MG/DL (0.60-1.30); GFR ESTIMATED > 60; GLUCOSE 134 MG/DL (70-105); MAGNESIUM 1.8 MG/DL (1.6-2.4); POTASSIUM 3.5 MMOL/L (3.6-5.0); SODIUM 140 MMOL/L (135-145); TOTAL PROTEIN 8.2 GM/DL (6.4-8.2)
--- NOTE | 2019-02-07 17:22 | NUR ---
PT VERY ANXIOUS.
--- NOTE | 2019-02-07 17:25 | Diagnostic Imaging Report ---
EXAM: CHEST 1 VIEW, AP/PA ONLY. INDICATION: Chest pain. COMPARISON: 02/01/2019. FINDINGS: Normal heart size and pulmonary vascularity. No dense consolidation, pleural effusion or pneumothorax. No acute osseous findings. No significant change. IMPRESSION: No acute cardiopulmonary findings. Dictated by: Dictated on workstation # [id number]
[2019-02-07] MEDS ORDERED: EPTIFIBATIDE BOLUS 20 ML IV ONE (17:34)
[2019-02-07] MEDS ORDERED: niCARdipine 25 MG/10 ML (CARDENE) AMP IV ONE (18:02)
[2019-02-07] MEDS ORDERED: NS (IVPB) 250 ML ONE (18:02)
[2019-02-07] MEDS ORDERED: EPTIFIBATIDE DRIP 100 ML IV ONE (18:11)
[2019-02-07] MEDS ORDERED: TICAGRELOR 90 MG TABLET (BRILINTA) PO ONE (18:15)
[2019-02-07] MEDS ORDERED: ASPIRIN 325 MG (5 GR) TABLET ONE (18:15)
--- NOTE | 2019-02-07 18:44 | Cardiac Cath Report ---
Cardiac Cath Report Physician (s)/Grape Cutter (s) Physician RASHID COPPOLA MD Pre-Procedure Diagnosis Pre-Procedure Diagnosis: acute myocardial infarction Post-Procedure Note Procedure Start Date: Feb 07, 2019 Name of Procedure: Acute ST elevation myocardial infarction with emergency intervention Left heart catheterization Balloon angioplasty to the LAD Findings/Procedure Note PROCEDURE NOTE: 48 years old gentleman with recent ST elevation myocardial infarction underwent stenting to the LAD on February 01, 2019, discharge home, reported that he was only taking Plavix, did not take any other medication, still an active smoker and used marijuana. Started to have chest pain and return to the emergency room and noted to have ST elevation in the anterior lead, of note was noted to have elevation in troponin level and normal myoglobin suggestive of subacute myocardial infarction. After explaining the procedure to the patient, all pros and cons were explained, all questions were answered. The patient signed the consent and then he was placed on the cardiac catheterization laboratory. Groin was prepped SL fashion local anesthesia was used. Sheath placed in the right femoral artery, I advanced FL guide to the left system, patient was given 5000 unit of heparin in the emergency room and given another 2000 units of heparin and then double bolus Integrilin. I try to cross the totally occluded LAD at its ostium with a BMW wire without success, tried a floppy wire and I was unable to cross the lesion, use support of 2.5 mm balloon was able to advance the wire in the mid LAD but was unable to cross the ostium of the LAD with that balloon suggested that the wire was within the struts of the freshly deployed stent. I left the wire and balloon in place and used a freddie wire with BMW wire. Was able to maneuver it within the LAD and it was easier advancement at this time, less resistant in the mid body of the LAD I was unable to [place] distally then I removed the other wire and balloon and reintroduced to 1.5 mm balloon over the BMW wire did couple inflation and reestablishment of the flow was ensured. Then I used 3.0 x 20 m balloon with multiple inflation at the ostium and proximal LAD. Slow flow initially, given Cardene intracoronary with borderline hypotension. Significant improvement was noted. At that point the wire and balloon were removed, angiogram was done showing excellent results. I advanced Leanna right catheter to the right carotid system and angiogram was done. Pigtail catheter advanced to the left ventricular cavity and left ventricular gram was done. Pullback LV to aorta was then. At the end of the procedure the sheath was removed. Closure device was used FINDINGS: Hemodynamics LV 103/22, end-diastolic pressure of 22 Aorta 118/82 mean of 83 ANATOMY: Left Main is free of obstructive disease Left Anterior Descending is totally occluded at its ostium, occlusion of freshly deployed stent from last week. Significantly difficult advancement suggestive of old thrombus within the ostium of the LAD. After multiple aggressive maneuvers I was able to cross the lesion and did balloon angioplasty using 3 x 18 M or balloon advanced to 3.18 mm under 10 yong with good results, slow flow in the LAD responded to Cardene drip and patient was started on Integrilin drip Left Circumflex has mild disease nonobstructive disease Right Coronory Artery has mild disease nonobstructive disease LV Gram is dilated with hypokinesia and anterior wall, ejection fraction estimated to be 30 percent CONCLUSION: 1. Subacute ST elevation myocardial infarction, patient had normal myoglobin and persistent elevation in troponin level with occlusion of the LAD. 2. Complex intervention with door to balloon time 80 minutes, balloon angioplasty to the ostium and proximal LAD with slow flow in the LAD with reestablishment of flow and good results 3. Mild disease in the circumflex and right coronary artery 4. Dilated left ventricle with anterior wall hypokinesia to akinesia, anesthesia ejection fraction 30 percent DISCUSSION AND RECOMMENDATION: Patient has been noncompliant with medication did not take aspirin, reporting that he was taking on the Plavix and he used marijuana and tobacco. I am concerned about poor metabolizer of Plavix. I reloaded him with aspirin and changed him to Brilinta in addition to the use of beta blockers, Lipitor 80 mg daily, fish oil and if his blood pressure tolerate will consider adding POLA inhibitor and/or ARB. Patient will need a LifeVest Anesthesia Type: Conscious Sedation Estimated blood loss (mL): 35 ml Contrast Amount: 140 ml Total Radiation Dose: 1644 mGy Post-Procedure Diagnosis Post-operative diagnosis: Subacute ST elevation of cardiac infarction Coronary artery disease Congestive heart failure, acute left ventricular systolic dysfunction, ischemic cardiomyopathy Hypertension Tobaccoism RASHID COPPOLA MD Feb 07, 2019 18:43
[2019-02-07] MEDS ORDERED: PATIENT MAY USE OWN MEDS, ALL PO SCH (18:45)
[2019-02-07 19:00] VITALS: BP 130/87
--- NOTE | 2019-02-07 19:00 | NUR ---
PT ON INTEGRILIN GTT PRIOR TO STARTING SHIFT
[2019-02-07 20:00] VITALS: BP 114/81
--- NOTE | 2019-02-07 20:47 | NUR ---
ORDERS TO CONTINUE INTEGRILIN GTT FOR [address] COPPOLA
[2019-02-07 21:00] VITALS: BP 111/78
[2019-02-07] MEDS ORDERED: TICAGRELOR 90 MG TABLET (BRILINTA) PO SCH (21:00)
[2019-02-07] MEDS: NS IV 1000 ML 1,000 ML IV SCH ×2 (21:15→21:54)
[2019-02-07] MEDS: EPTIFIBATIDE DRIP 100 ML IV SCH (21:15)
[2019-02-07] MEDS: ATORVASTATIN 80 MG (LIPITOR) TABLET PO SCH (21:49)
[2019-02-07] MEDS: PANTOPRAZOLE 40 MG (PROTONIX) TAB PO SCH (21:49)
[2019-02-07] MEDS: meTOprolol TARTRATE 25 MG (LOPRESSOR) TABLET PO SCH (21:50)
[2019-02-07 22:00] VITALS: BP 116/81
[2019-02-07 23:00] VITALS: BP 104/75
[2019-02-08] VITALS (13 sets, daily range): BP systolic 99–131; BP diastolic 63–84
[2019-02-08] MEDS ORDERED: EPTIFIBATIDE DRIP 100 ML IV ONE (00:18)
[2019-02-08] MEDS: EPTIFIBATIDE DRIP 100 ML IV SCH (00:31)
[2019-02-08 03:34] LABS: BASOPHILS % (AUTO) 0 % (0-10); EOSINOPHILS # (AUTO) 0.1 10^3/uL (0.0-0.3); EOSINOPHILS % (AUTO) 1 % (0-10); HEMATOCRIT 38 % (40-54); HEMOGLOBIN 12.8 G/DL (13.3-17.7); LYMPHOCYTES # (AUTO) 1.4 X 10^3 (1.0-4.0); LYMPHOCYTES % (AUTO) 24 % (12-44); MEAN CORPUSCULAR HEMOGLOBIN 30 PG (25-34); MEAN CORPUSCULAR HGB CONC 34 G/DL (32-36); MEAN CORPUSCULAR VOLUME 89 FL (80-99); MEAN PLATELET VOLUME 9.9 FL (7.4-10.4); MONOCYTES # (AUTO) 0.8 X 10^3 (0.0-1.0); MONOCYTES % (AUTO) 15 % (0-12); NEUTROPHILS # (AUTO) 3.5 X 10^3 (1.8-7.8); NEUTROPHILS % (AUTO) 61 % (42-75); PLATELET COUNT 276 10^3/uL (130-400); RED CELL DISTRIBUTION WIDTH 13.6 % (10.0-14.5); WHITE BLOOD COUNT 5.7 10^3/uL (4.3-11.0)
[2019-02-08 03:58] LABS: BUN/CREATININE RATIO 13; CALCIUM 9.1 MG/DL (8.5-10.1); CARBON DIOXIDE 21 MMOL/L (21-32); CHLORIDE 106 MMOL/L (98-107); CHOLESTEROL 136 MG/DL (< 200); CREATININE SERUM 0.83 MG/DL (0.60-1.30); GFR ESTIMATED > 60; GLUCOSE 97 MG/DL (70-105); HDL CHOLESTEROL 28 MG/DL (40-60); MAGNESIUM 1.5 MG/DL (1.6-2.4); PHOSPHORUS 3.1 MG/DL (2.3-4.7); POTASSIUM 3.8 MMOL/L (3.6-5.0); SODIUM 139 MMOL/L (135-145); TRIGLYCERIDES 100 MG/DL (<150); VLDL CHOLESTEROL 20 MG/DL (5-40)
[2019-02-08] MEDS: POTASSIUM CL 10MEQ/50ML IVPB 50 ML IV SCH (05:18)
[2019-02-08] MEDS: MAGNESIUM 1 GM/100 ML IVPB 100 ML IV SCH ×3 (05:18→08:50)
[2019-02-08] MEDS: KCL 20 MEQ TAB (K-DUR) PO SCH (05:19)
[2019-02-08] MEDS: OMEGA 3 (FISH OIL) 1000 MG CAP PO SCH ×2 (06:21→14:30)
[2019-02-08] MEDS: PANTOPRAZOLE 40 MG (PROTONIX) TAB PO SCH (06:21)
[2019-02-08] MEDS: TICAGRELOR 90 MG TABLET (BRILINTA) PO SCH ×2 (06:21→14:30)
--- NOTE | 2019-02-08 08:35 | Progress Note - Cardiology ---
Cardiology SOAP Progress Note Subjective: Sitting up in bed. Denies any c/o CP, palpitations, or dyspnea. No c/o right groin discomfort. Objective: I&O/Vital Signs 02/07/19 02/07/19 02/08/19 02/08/19 22:00 23:00 00:00 00:00 Temp 98.3 Pulse 94 87 Resp 14 15 B/P (MAP) 116/81 (93) 104/75 (85) Pulse Ox 98 96 98 O2 Delivery Nasal Cannula Nasal Cannula Nasal Cannula O2 Flow Rate 2.00 2.00 2.00 02/08/19 02/08/19 02/08/19 02/08/19 00:09 01:00 01:00 02:00 Pulse 83 75 75 78 Resp 11 14 18 B/P (MAP) 99/76 (84) 101/68 (79) 115/76 (89) Pulse Ox 96 97 96 O2 Delivery Nasal Cannula Nasal Cannula Nasal Cannula O2 Flow Rate 2.00 2.00 2.00 02/08/19 02/08/19 02/08/19 02/08/19 02:00 03:00 03:00 04:00 Pulse 78 75 75 79 Resp 10 10 18 13 B/P (MAP) 115/76 (89) 108/84 (92) 108/74 (85) 111/82 (92) Pulse Ox 96 97 97 97 O2 Delivery Nasal Cannula Nasal Cannula Nasal Cannula Nasal Cannula O2 Flow Rate 2.00 2.00 2.00 2.00 02/08/19 02/08/19 02/08/19 02/08/19 04:00 04:00 04:00 05:00 Temp 98.0 Pulse 79 76 Resp 18 13 B/P (MAP) 111/82 (92) 102/77 (85) Pulse Ox 98 97 98 O2 Delivery Nasal Cannula Nasal Cannula Nasal Cannula O2 Flow Rate 2.00 2.00 2.00 02/08/19 02/08/19 02/08/19 02/08/19 05:00 06:00 06:00 07:00 Pulse 76 79 79 78 Resp 18 18 15 B/P (MAP) 102/77 (85) 112/75 (87) 112/75 (87) Pulse Ox 98 96 96 O2 Delivery Nasal Cannula Nasal Cannula Nasal Cannula O2 Flow Rate 2.00 2.00 2.00 8/02/08/19 02/08/19 02/08/19 07:00 07:00 08:00 08:00 Temp 98.5 Pulse 89 93 84 Resp 8 6 15 B/P (MAP) 109/78 (88) 109/78 (88) 112/77 (89) Pulse Ox 96 97 97 96 O2 Delivery Nasal Cannula Nasal Cannula Nasal Cannula Nasal Cannula O2 Flow Rate 2.00 2.00 2.00 2.00 02/08/19 08:00 Pulse 82 Resp 14 B/P (MAP) 112/77 (89) Pulse Ox 96 O2 Delivery Nasal Cannula O2 Flow Rate 2.00 02/08/19 00:00 Intake Total 0 ml Output Total 225 ml Balance -225 ml Weight (Pounds): 220 Weight (Ounces): 0.9 Weight (Calculated Kilograms): 99.868291 Side: right Groin site without hematoma: Yes Condition: DP/PT pulses palpable, extremity w/d/p Bruising: mild bruising Constitutional: AAO x 3, well-developed, well-nourished Respiratory: No accessory muscle use, No respiratory distress; chest expansion is symmetric, chest is bilaterally symmetric, lungs clear to auscultation Cardiovascular: regular rate-rhythm; No JVD; S1 and S2 Gastrointestional: No tender; soft, round, audible bowel sounds Extremities: no lower extremity edema bilateral Neurologic/Psychiatric: grossly intact, power is 5/5 both on sides Skin: No rash on exposed areas, No ulcerations on exposed areas Results/Procedures: Labs Laboratory Tests 02/07/19 16:52: White Blood Count 8.4, Red Blood Count 4.65, Hemoglobin 14.2, Hematocrit 41, Mean Corpuscular Volume 88, Mean Corpuscular Hemoglobin 31, Mean Corpuscular Hemoglobin Concent 35, Red Cell Distribution Width 13.5, Platelet Count 342, Mean Platelet Volume 9.9, Neutrophils (%) (Auto) 65, Lymphocytes (%) (Auto) 22, Monocytes (%) (Auto) 12, Eosinophils (%) (Auto) 1, Basophils (%) (Auto) 0, Neutrophils # (Auto) 5.4, Lymphocytes # (Auto) 1.9, Monocytes # (Auto) 1.0, Eosinophils # (Auto) 0.1, Basophils # (Auto) 0.0, Prothrombin Time 14.1, INR Comment 1.0, Activated Partial Thromboplast Time 30, Sodium Level 140, Potassium Level 3.5L, Chloride Level 103, Carbon Dioxide Level 25, Anion Gap 12, Blood Urea Nitrogen 15, Creatinine 1.19, Estimat Glomerular Filtration Rate > 60, BUN/Creatinine Ratio 13, Glucose Level 134H, Calcium Level 10.0, Corrected Calcium , Magnesium Level 1.8, Total Bilirubin 0.5, Aspartate Amino Transf (AST/SGOT) 28, Alanine Aminotransferase (ALT/SGPT) 31, Alkaline Phosphatase 84, Myoglobin 69.1, Troponin I 14.801*H, Total Protein 8.2, Albumin 4.6H 02/08/19 03:15: White Blood Count 5.7, Red Blood Count 4.29L, Hemoglobin 12.8L, Hematocrit 38L, Mean Corpuscular Volume 89, Mean Corpuscular Hemoglobin 30, Mean Corpuscular Hemoglobin Concent 34, Red Cell Distribution Width 13.6, Platelet Count 276, Mean Platelet Volume 9.9, Neutrophils (%) (Auto) 61, Lymphocytes (%) (Auto) 24, Monocytes (%) (Auto) 15H, Eosinophils (%) (Auto) 1, Basophils (%) (Auto) 0, Neutrophils # (Auto) 3.5, Lymphocytes # (Auto) 1.4, Monocytes # (Auto) 0.8, Eosinophils # (Auto) 0.1, Basophils # (Auto) 0.0, Sodium Level 139, Potassium Level 3.8, Chloride Level 106, Carbon Dioxide Level 21, Anion Gap 12, Blood Urea Nitrogen 11, Creatinine 0.83, Estimat Glomerular Filtration Rate > 60, BUN/Creatinine Ratio 13, Glucose Level 97, Calcium Level 9.1, Magnesium Level 1.5L, Troponin I 22.722*H, Phosphorus Level 3.1, Triglycerides Level 100, Cholesterol Level 136, LDL Cholesterol Direct 93, VLDL Cholesterol 20, HDL Cholesterol 28L Procedures Cardiac cath on 02-07-19 with successful intervention by Dr. Almaraz. Please refer to his cardiac cath report for details. A/P: Assessment: Subacute ST elevation myocardial infarction, patient had normal myoglobin and persistent elevation in troponin level with occlusion of the LAD. Complex intervention, on cardiac cath of 02-07-19 Dr. Almaraz : balloon an gioplasty to the ostium and proximal LAD with slow flow in the LAD with reestablishment of flow and good results. Mild disease in the circumflex and right coronary artery Dilated left ventricle with anterior wall hypokinesia to akinesia, estimated ejection fraction 30% Previous Card cath on 02/01/19: Coronary artery disease consisting of complete ostial occlusion of the left anterior descending artery to which successful percutaneous coronary intervention was carried out. Following deployment of Alpine Xience 2.75 x 18 mm stent, there is no significant residual stenosis. A large obtuse marginal of the left circumflex shows 80% bifurcation stenosis in its distal portion. Right coronary artery is dominant and has mild disease. Elevated left ventricular end-diastolic pressure. Well preserved global left ventricular systolic function with ejection fraction approximately 55% Ischemic cardiomyopathy. Echo on 02/04/19: LVEF 40-45%, anteroseptal hypokinesis, mild conc LVH, RVSP 20 mmHg. LVEF 30% on cardiac cath of 02-07-19 Hyperlipidemia, not taking any medication Tobaccoism, educated on smoking cessation History of meth use History of marijuana use Noncompliant with medication Plan: Advise Life Vest placement, discussed with him in detail to which he is agreeable Discussed importance of compliance with all medications and medical instructions including possible deleterious effects of non-compliance. He verbalizes understanding Continue current medications including BB and dual anti-platelet tx (Brilinta) Add POLA (-) and adjust as tolerated Monitor lab closely Community Health consult Physician Assessment Physician Assessment No cp this am. No palp or syncope or shortness of breath at rest. States was noncompliant with ASA prior to presentation with repeat DC Lung: good bilat air entry Cor: reg Ext: no c/c/e A&R * As documented in our note above that I updated (italics) and as noted below * I again advised med compliance and avoidance of tobacco, marijuana, and meth * Trying to establish f/u with [facility] for help with meds Clinical Quality Measures AMI/AHF: ASA po Prior to arrival: Yes MARGARITO IBANEZ [employer]IVE INTERNET SALES CONSULTANT Feb 08, 2019 08:35 ALETHEA ALMAZAN MD FACP FAC CCDS Feb 08, 2019 09:42
[2019-02-08] MEDS: meTOprolol TARTRATE 25 MG (LOPRESSOR) TABLET PO SCH ×2 (08:50→21:04)
[2019-02-08] MEDS: ASPIRIN E.C. 81 MG (ECOTRIN) TAB PO SCH (08:50)
[2019-02-08] MEDS ORDERED: lisINopril 5 MG (PRINIVIL) TABLET PO ONE (09:00)
--- NOTE | 2019-02-08 12:57 | NUR ---
CM/SS communicated with [employer] and let them know that our Financial Services department was going to speak with the patient for possible Medicaid.
--- NOTE | 2019-02-08 13:46 | NUR ---
SPOKE WITH THE PATIENT REGARDING MEDICATIONS. HE STATES WHEN HE WAS DISCHARGED ON 02-05-19 HIS SCRIPTS WERE SENT TO [facility], HE IS NOT AN ESTABLISHED PATIENT WITH [facility] THEREFORE THEY COULD NOT FILL THOSE SCRIPTS. THEY HAVE REMOVED THOSE SCRIPTS FROM THEIR SYSTEM AND THEY ARE NO LONGER ACTIVE. HE STATES A FRIEND OF HIS DID SOME CALLING AND HAD THE PRESCRIPTIONS CALLED INTO [facility]. HE WAS NOT ABLE TO AFFORD THEM ALL FROM [facility] AND ONLY PICKED UP THE PLAVIX. HE STATES HE DID NOT START TAKING ASPIRIN EITHER UNTIL RECENTLY WHEN HE STARTED HAVING CHEST PAIN AND HE PURCHASED SOME AT [facility]. HE IS UNSURE THE DOSE. AT THIS TIME I REMOVED ALL MEDS EXCEPT FOR THE PLAVIX THAT HE HAD BEEN TAKING SINCE HIS LAST DISCHARGE. [facility] FILLED: 02-05-19 PLAVIX 75MG DAILY #30 ($10.83) ON HOLD/NOT PICKED UP: 02-05-19 LIPITOR 40MG DAILY #30 ($36.49) 02-05-19 ENALAPRIL 2.5MG BID #60 ($29.49) 02-05-19 METOPROLOL TARTRATE 25MG 1/2 BID #30 ($5.99)
--- NOTE | 2019-02-08 14:04 | NUR ---
CM/SS spoke with the patient, he discharged on 02/05 and only filled plavix and not his other medications. At the time of that discharge had spoken to the patient and he had said would not have difficulty filling meds. Pharmacy provided patient with a 30 free trial card for Brilenta. Will continue to follow for possible PALS assistance and Life Vest.
[2019-02-08] MEDS: NS IV 1000 ML 1,000 ML IV SCH (14:49)
[2019-02-08] MEDS ORDERED: ZIPRASIDONE 20 MG INJ (GEODON) VIAL IM ONE (15:43)
[2019-02-08] MEDS: ATORVASTATIN 80 MG (LIPITOR) TABLET PO SCH (21:04)
[2019-02-09] VITALS (7 sets, daily range): BP systolic 92–119; BP diastolic 58–76
[2019-02-09 04:51] LABS: BASOPHILS % (AUTO) 0 % (0-10); EOSINOPHILS # (AUTO) 0.1 10^3/uL (0.0-0.3); EOSINOPHILS % (AUTO) 1 % (0-10); HEMATOCRIT 37 % (40-54); HEMOGLOBIN 12.4 G/DL (13.3-17.7); LYMPHOCYTES # (AUTO) 1.5 X 10^3 (1.0-4.0); LYMPHOCYTES % (AUTO) 21 % (12-44); MEAN CORPUSCULAR HEMOGLOBIN 31 PG (25-34); MEAN CORPUSCULAR HGB CONC 34 G/DL (32-36); MEAN CORPUSCULAR VOLUME 90 FL (80-99); MEAN PLATELET VOLUME 10.1 FL (7.4-10.4); MONOCYTES % (AUTO) 13 % (0-12); NEUTROPHILS # (AUTO) 4.7 X 10^3 (1.8-7.8); NEUTROPHILS % (AUTO) 65 % (42-75); PLATELET COUNT 262 10^3/uL (130-400); RED CELL DISTRIBUTION WIDTH 13.4 % (10.0-14.5); WHITE BLOOD COUNT 7.3 10^3/uL (4.3-11.0)
[2019-02-09 05:34] LABS: BUN/CREATININE RATIO 19; CARBON DIOXIDE 19 MMOL/L (21-32); CHLORIDE 107 MMOL/L (98-107); CREATININE SERUM 0.89 MG/DL (0.60-1.30); GFR ESTIMATED > 60; GLUCOSE 96 MG/DL (70-105); MAGNESIUM 2.1 MG/DL (1.6-2.4); PHOSPHORUS 3.2 MG/DL (2.3-4.7); POTASSIUM 3.9 MMOL/L (3.6-5.0); SODIUM 139 MMOL/L (135-145)
[2019-02-09] MEDS: POTASSIUM CL 10MEQ/50ML IVPB 50 ML IV SCH (06:57)
[2019-02-09] MEDS: MAGNESIUM 1 GM/100 ML IVPB 100 ML IV SCH (06:58)
[2019-02-09] MEDS: TICAGRELOR 90 MG TABLET (BRILINTA) PO SCH ×2 (06:58→17:08)
[2019-02-09] MEDS: KCL 20 MEQ TAB (K-DUR) PO SCH (06:58)
[2019-02-09] MEDS: OMEGA 3 (FISH OIL) 1000 MG CAP PO SCH ×2 (06:58→17:08)
[2019-02-09] MEDS: PANTOPRAZOLE 40 MG (PROTONIX) TAB PO SCH (06:58)
[2019-02-09] MEDS: lisINopril 5 MG (PRINIVIL) TABLET PO SCH (08:21)
[2019-02-09] MEDS: meTOprolol TARTRATE 25 MG (LOPRESSOR) TABLET PO SCH ×2 (08:21→20:41)
[2019-02-09] MEDS: ASPIRIN E.C. 81 MG (ECOTRIN) TAB PO SCH (08:21)
--- NOTE | 2019-02-09 08:39 | Progress Note - Cardiology ---
Cardiology SOAP Progress Note Subjective: Sitting up in bed. Denies any c/o CP, palpitations. A little SOB this morning. Objective: I&O/Vital Signs 02/09/19 02/09/19 02/09/19 02/09/19 04:00 04:20 07:00 07:00 Temp 98.4 Pulse 84 82 Resp 20 B/P (MAP) 102/76 (85) Pulse Ox 94 99 O2 Delivery Nasal Cannula Room Air O2 Flow Rate 2.00 02/09/19 02/09/19 02/09/19 02/09/19 08:00 08:00 10:38 12:55 Temp 97.8 98.9 Pulse 90 77 86 Resp 17 18 18 B/P (MAP) 119/71 (87) 97/63 (74) 94/58 (70) Pulse Ox 97 95 99 100 O2 Delivery Room Air Room Air Room Air Room Air 02/09/19 13:00 Pulse 91 02/09/19 00:00 Intake Total 910 ml Output Total 1225 ml Balance -315 ml Weight (Pounds): 220 Weight (Ounces): 0.9 Weight (Calculated Kilograms): 99.774224 Side: right Groin site without hematoma: Yes Condition: DP/PT pulses palpable, extremity w/d/p Bruising: mild bruising Constitutional: AAO x 3, well-developed, well-nourished Respiratory: No accessory muscle use, No respiratory distress; chest expansion is symmetric, chest is bilaterally symmetric, lungs clear to auscultation Cardiovascular: regular rate-rhythm; No JVD; S1 and S2 Gastrointestional: No tender; soft, round, audible bowel sounds Extremities: no lower extremity edema bilateral Neurologic/Psychiatric: grossly intact, power is 5/5 both on sides Skin: No rash on exposed areas, No ulcerations on exposed areas Results/Procedures: Labs Laboratory Tests 02/09/19 04:45: White Blood Count 7.3, Red Blood Count 4.06L, Hemoglobin 12.4L, Hematocrit 37L, Mean Corpuscular Volume 90, Mean Corpuscular Hemoglobin 31, Mean Corpuscular Hemoglobin Concent 34, Red Cell Distribution Width 13.4, Platelet Count 262, Mean Platelet Volume 10.1, Neutrophils (%) (Auto) 65, Lymphocytes (%) (Auto) 21, Monocytes (%) (Auto) 13H, Eosinophils (%) (Auto) 1, Basophils (%) (Auto) 0, Neutrophils # (Auto) 4.7, Lymphocytes # (Auto) 1.5, Monocytes # (Auto) 1.0, Eosinophils # (Auto) 0.1, Basophils # (Auto) 0.0, Sodium Level 139, Potassium Level 3.9, Chloride Level 107, Carbon Dioxide Level 19L, Anion Gap 13, Blood Urea Nitrogen 17, Creatinine 0.89, Estimat Glomerular Filtration Rate > 60, BUN/Creatinine Ratio 19, Glucose Level 96, Calcium Level 9.0, Phosphorus Level 3.2, Magnesium Level 2.1 Microbiology 02/07/19 MRSA Screen - Final, Complete MRSA not isolated A/P: Assessment: Subacute ST elevation myocardial infarction, patient had normal myoglobin and persistent elevation in troponin level with occlusion of the LAD. Complex intervention, on cardiac cath of 02-07-19 Dr. Almaraz : balloon angioplasty to the ostium and proximal LAD with slow flow in the LAD with reestablishment of flow and good results. Mild disease in the circumflex and right coronary artery Dilated left ventricle with anterior wall hypokinesia to akinesia, estimated ejection fraction 30% Previous Card cath on 02/01/19: Coronary artery disease consisting of complete ostial occlusion of the left anterior descending artery to which successful percutaneous coronary intervention was carried out. Following deployment of Alpine Xience 2.75 x 18 mm stent, there is no significant residual stenosis. A large obtuse marginal of the left circumflex shows 80% bifurcation stenosis in its distal portion. Right coronary artery is dominant and has mild disease. Elevated left ventricular end-diastolic pressure. Well preserved global left ventricular systolic function with ejection fraction approximately 55% Ischemic cardiomyopathy. Echo on 02/04/19: LVEF 40-45%, anteroseptal hypokinesis, mild conc LVH, RVSP 20 mmHg. LVEF 30% on cardiac cath of 02-07-19 Hyperlipidemia, not taking any medication Tobaccoism, educated on smoking cessation History of meth use History of marijuana use Noncompliant with medication Plan: Advise Life Vest placement, discussed with him in detail to which he is agreeable - awaiting placement approval d/t $500 down payment cost required by [facility] - social/financial services assisting Again, discussed importance of compliance with all medications and medical instructions including possible deleterious effects of non-compliance. He verbalizes understanding Continue current medications including BB and dual anti-platelet tx (Brilinta) Continue POLA (-) and adjust as tolerated Monitor lab closely Community Health consult Transfer to 4th floor today with tele Physician Assessment Physician Assessment No cp or palp or syncope or shortness of breath Lungs: good bilat air entry Cor: reg Ext: no c/c/e A&R: * As documented in our note above that I updated (italics) and as noted below * I again had a long discussion with him regarding the importance of med compliance and risk factor modification * Dr Almaraz covering over the weekend Clinical Quality Measures AMI/AHF: ASA po Prior to arrival: Yes MARGARITO IBANEZ SENIOR FUND ACCOUNTANT Feb 09, 2019 08:38 ALETHEA ALMAZAN MD FACP FAC CCDS Feb 09, 2019 16:02
--- NOTE | 2019-02-09 10:30 | NUR ---
PATIENT TO FLOOR AT THIS TIME. UP A LAUREN, WILL CONT TO MONITOR THIS PATIENT THROUGHOUT THE REMAINDER OF THIS SHIFT.
--- NOTE | 2019-02-09 10:40 | NUR ---
report given to Dulce hawthorne and Lamar HAWTHORNE. pt to room 430 introduced to room and call system.
[2019-02-09] MEDS ORDERED: METO-333 PO (15:42)
[2019-02-09] MEDS ORDERED: ATOR80TA76 PO (15:42)
[2019-02-09] MEDS ORDERED: LISI-556 PO (15:42)
[2019-02-09] MEDS ORDERED: TICA90TA PO (15:42)
[2019-02-09] MEDS ORDERED: ASPI-983 PO (15:42)
[2019-02-09] MEDS: ATORVASTATIN 80 MG (LIPITOR) TABLET PO SCH (20:41)
--- NOTE | 2019-02-09 23:30 | NUR ---
ASSUMED PATIENT CARE AND RECEIVED REPORT FROM CHRISTOPH ALANIS. NO CHANGES FROM PREVIOUS ASSESSMENT.
[2019-02-10] VITALS: BP 101/65
[2019-02-10 04:00] VITALS: BP 105/69
--- NOTE | 2019-02-10 04:15 | NUR ---
ASSUMED CARE OF THIS PT, RECEIVED REPORT FROM CHRISTOPH FLYNN. NO CHANGES NOTED FROM PREVIOUS ASSESSMENT.
[2019-02-10] MEDS: PANTOPRAZOLE 40 MG (PROTONIX) TAB PO SCH (06:14)
[2019-02-10] MEDS: OMEGA 3 (FISH OIL) 1000 MG CAP PO SCH ×2 (06:14→17:12)
[2019-02-10] MEDS: TICAGRELOR 90 MG TABLET (BRILINTA) PO SCH ×2 (06:14→17:12)
[2019-02-10 06:37] LABS: BASOPHILS % (AUTO) 0 % (0-10); EOSINOPHILS # (AUTO) 0.1 10^3/uL (0.0-0.3); EOSINOPHILS % (AUTO) 1 % (0-10); HEMATOCRIT 38 % (40-54); HEMOGLOBIN 12.8 G/DL (13.3-17.7); LYMPHOCYTES # (AUTO) 1.7 X 10^3 (1.0-4.0); LYMPHOCYTES % (AUTO) 24 % (12-44); MEAN CORPUSCULAR HEMOGLOBIN 30 PG (25-34); MEAN CORPUSCULAR HGB CONC 33 G/DL (32-36); MEAN CORPUSCULAR VOLUME 89 FL (80-99); MEAN PLATELET VOLUME 9.9 FL (7.4-10.4); MONOCYTES % (AUTO) 14 % (0-12); NEUTROPHILS # (AUTO) 4.2 X 10^3 (1.8-7.8); NEUTROPHILS % (AUTO) 60 % (42-75); PLATELET COUNT 315 10^3/uL (130-400); RED CELL DISTRIBUTION WIDTH 13.5 % (10.0-14.5); WHITE BLOOD COUNT 7.1 10^3/uL (4.3-11.0)
[2019-02-10 06:57] LABS: BUN/CREATININE RATIO 21; CALCIUM 9.5 MG/DL (8.5-10.1); CARBON DIOXIDE 20 MMOL/L (21-32); CHLORIDE 107 MMOL/L (98-107); CREATININE SERUM 0.89 MG/DL (0.60-1.30); GFR ESTIMATED > 60; GLUCOSE 96 MG/DL (70-105); MAGNESIUM 1.6 MG/DL (1.6-2.4); PHOSPHORUS 4.1 MG/DL (2.3-4.7); POTASSIUM 4.2 MMOL/L (3.6-5.0); SODIUM 139 MMOL/L (135-145)
[2019-02-10 08:00] VITALS: BP 99/66
[2019-02-10] MEDS: meTOprolol TARTRATE 25 MG (LOPRESSOR) TABLET PO SCH ×2 (09:08→20:10)
[2019-02-10] MEDS: lisINopril 5 MG (PRINIVIL) TABLET PO SCH (09:11)
[2019-02-10] MEDS: ASPIRIN E.C. 81 MG (ECOTRIN) TAB PO SCH (09:11)
--- NOTE | 2019-02-10 10:09 | Cardiology Progress Note ---
Subjective Date Seen by Provider: Feb 10, 2019 Time Seen by Provider: 10:08 Subjective/Events-last exam Patient is laying down in bed, feeling better. No chest pain Review of Systems General: No Chills, No Night Sweats, No Fatigue, No Malaise, No Appetite, No Other HEENT: No Head Aches, No Visual Changes, No Eye Pain, No Ear Pain, No Dysphasia, No Sinus Congestion, No Post Nasal Drip, No Sore Throat, No Other Pulmonary: No Dyspnea, No Cough, No Pleuritic Chest Pain, No Other Cardiovascular: No: Chest Pain, Palpitations, Orthopnea, Paroxysmal Noc. Dyspnea, Edema, Lt Headedness, Other Objective-Cardiology Exam Last Set of Vital Signs Vital Signs 02/09/19 02/10/19 04:00 08:00 Temp 97.4 Pulse 82 Resp 20 B/P (MAP) 99/66 (77) Pulse Ox 97 O2 Delivery Room Air O2 Flow Rate 2.00 Capillary Refill : Less Than 3 SecondsLess Than 3 Seconds I&O Intake and Output 02/10/19 00:00 Intake Total 2864 ml Output Total 450 ml Balance 2414 ml Intake Oral 2864 ml Output Urine Total 450 ml # Voids 7 # Bowel Movements 1 General: Alert, Oriented X3, Cooperative, No Acute Distress HEENT: Atraumatic, PERRLA Lungs: Clear to Auscultation, Normal Air Movement Heart: Regular Rate, Normal S1, Normal S2, No Murmurs Abdomen: Normal Bowel Sounds, Soft, No Tenderness, No Hepatosplenomegaly, No Masses Extremities: No Clubbing, No Cyanosis, No Edema, Normal Pulses, No Tenderness/Swelling Skin: No Rashes, No Breakdown, No Significant Lesion Neuro: Normal Gait, Normal Speech, Strength at 5/5 X4 Ext, Normal Tone, Sensation Intact Psych/Mental Status: Mental Status NL, Mood NL Results Lab Laboratory Tests 02/10/19 06:20 02/10/19 06:28 A/P-Cardiology Admission Diagnosis Acute ST elevation Mccartan function Coronary artery disease Hypertension Hyperlipidemia Assessment/Plan Status post acute ST elevation myocardial infarct and anterior wall, recent [place], had Alpine 2.75 time 18 mm stent to the LAD done on February 01, [address] Luna after STEMI. Had total occlusion of the LAD, underwent emergency balloon angioplasty to the LAD with improvement. Congestive heart failure, acute left ventricular systolic dysfunction, ischemic cardiomyopathy, akinesia of the anterior wall, ejection fraction 30 percent, started on beta blockers, will add POLA inhibitor as tolerated Patient is wearing lifevest Hyperlipidemia, maintained on Lipitor 80 mg daily Tobaccoism, educated on smoking cessation History of meth use History of marijuana use Noncompliant with medication Clinical Quality Measures AMI/AHF: ASA po Prior to arrival: Yes DVT/VTE Risk/Contraindication: Risk Factor Score Per Nursin RFS Level Per Nursing on Admit: 3=High RASHID COPPOLA MD Feb 10, 2019 10:09
[2019-02-10 12:00] VITALS: BP 111/76
[2019-02-10 15:47] VITALS: BP 97/61
[2019-02-10 20:09] VITALS: BP 113/74
[2019-02-10] MEDS: ATORVASTATIN 80 MG (LIPITOR) TABLET PO SCH (20:10)
[2019-02-11] VITALS: BP 96/61
[2019-02-11 04:00] VITALS: BP 89/51
[2019-02-11 06:19] LABS: BASOPHILS % (AUTO) 0 % (0-10); EOSINOPHILS # (AUTO) 0.1 10^3/uL (0.0-0.3); EOSINOPHILS % (AUTO) 2 % (0-10); HEMATOCRIT 38 % (40-54); HEMOGLOBIN 13.1 G/DL (13.3-17.7); LYMPHOCYTES # (AUTO) 1.5 X 10^3 (1.0-4.0); LYMPHOCYTES % (AUTO) 25 % (12-44); MEAN CORPUSCULAR HEMOGLOBIN 30 PG (25-34); MEAN CORPUSCULAR HGB CONC 34 G/DL (32-36); MEAN CORPUSCULAR VOLUME 89 FL (80-99); MEAN PLATELET VOLUME 10.2 FL (7.4-10.4); MONOCYTES % (AUTO) 16 % (0-12); NEUTROPHILS # (AUTO) 3.6 X 10^3 (1.8-7.8); NEUTROPHILS % (AUTO) 57 % (42-75); PLATELET COUNT 310 10^3/uL (130-400); RED CELL DISTRIBUTION WIDTH 13.3 % (10.0-14.5); WHITE BLOOD COUNT 6.3 10^3/uL (4.3-11.0)
[2019-02-11] MEDS: TICAGRELOR 90 MG TABLET (BRILINTA) PO SCH ×2 (06:28→18:29)
[2019-02-11] MEDS: OMEGA 3 (FISH OIL) 1000 MG CAP PO SCH ×2 (06:28→18:29)
[2019-02-11] MEDS: PANTOPRAZOLE 40 MG (PROTONIX) TAB PO SCH (06:28)
[2019-02-11 06:51] LABS: BUN/CREATININE RATIO 22; CALCIUM 9.6 MG/DL (8.5-10.1); CARBON DIOXIDE 24 MMOL/L (21-32); CHLORIDE 106 MMOL/L (98-107); CREATININE SERUM 0.83 MG/DL (0.60-1.30); GFR ESTIMATED > 60; GLUCOSE 93 MG/DL (70-105); MAGNESIUM 1.9 MG/DL (1.6-2.4); PHOSPHORUS 3.9 MG/DL (2.3-4.7); SODIUM 141 MMOL/L (135-145)
[2019-02-11 08:37] VITALS: BP 104/60
[2019-02-11] MEDS: meTOprolol TARTRATE 25 MG (LOPRESSOR) TABLET PO SCH ×2 (08:58→20:47)
[2019-02-11] MEDS: ASPIRIN E.C. 81 MG (ECOTRIN) TAB PO SCH (08:58)
[2019-02-11] MEDS: lisINopril 5 MG (PRINIVIL) TABLET PO SCH (08:58)
--- NOTE | 2019-02-11 10:12 | Cardiology Progress Note ---
Subjective Date Seen by Provider: Feb 11, 2019 Time Seen by Provider: 10:11 Subjective/Events-last exam Patient is laying down in bed. No new complaint. Review of Systems General: No Chills, No Night Sweats, No Fatigue, No Malaise, No Appetite, No Other HEENT: No Head Aches, No Visual Changes, No Eye Pain, No Ear Pain, No Dysphasia, No Sinus Congestion, No Post Nasal Drip, No Sore Throat, No Other Pulmonary: No Dyspnea, No Cough, No Pleuritic Chest Pain, No Other Objective-Cardiology Exam Last Set of Vital Signs Vital Signs 02/09/19 02/11/19 04:00 08:37 Temp 98.3 Pulse 76 Resp 18 B/P (MAP) 104/60 (75) Pulse Ox 97 O2 Delivery Room Air O2 Flow Rate 2.00 Capillary Refill : Less Than 3 SecondsLess Than 3 Seconds I&O Intake and Output 02/11/19 00:00 Intake Total 2420 ml Balance 2420 ml Intake Oral 2420 ml # Voids 11 # Bowel Movements 3 General: Alert, Oriented X3, Cooperative, No Acute Distress HEENT: Atraumatic, PERRLA Neck: Supple, No JVD Lungs: Clear to Auscultation, Normal Air Movement Heart: Regular Rate, Normal S1, Normal S2, No Murmurs Abdomen: Normal Bowel Sounds, Soft, No Tenderness, No Hepatosplenomegaly, No Masses Extremities: No Clubbing, No Cyanosis, No Edema, Normal Pulses, No Tenderness/Swelling Skin: No Rashes, No Breakdown, No Significant Lesion Neuro: Normal Gait, Normal Speech, Strength at 5/5 X4 Ext, Normal Tone, Sensation Intact Psych/Mental Status: Mental Status NL, Mood NL Results Lab Laboratory Tests 02/11/19 05:50 A/P-Cardiology Admission Diagnosis Acute ST elevation Mccartan function Coronary artery disease Hypertension Hyperlipidemia Assessment/Plan Status post acute ST elevation myocardial infarct and anterior wall, recent [place], had Alpine 2.75 time 18 mm stent to the LAD done on February 01, [address] Luna after STEMI. Had total occlusion of the LAD, underwent emergency balloon angioplasty to the LAD with improvement. Congestive heart failure, acute left ventricular systolic dysfunction, ischemic cardiomyopathy, akinesia of the anterior wall, ejection fraction 30 percent, continue to monitor. Next Borderline hypotension, better today, tolerating medication well. Continue on current medication monitor Patient is wearing lifevest Hyperlipidemia, maintained on Lipitor 80 mg daily Tobaccoism, educated on smoking cessation History of meth use History of marijuana use Noncompliant with medication Clinical Quality Measures AMI/AHF: ASA po Prior to arrival: Yes DVT/VTE Risk/Contraindication: Risk Factor Score Per Nursin RFS Level Per Nursing on Admit: 3=High RASHID COPPOLA MD Feb 11, 2019 10:12
[2019-02-11 11:36] VITALS: BP 99/63
[2019-02-11 16:00] VITALS: BP 94/58
[2019-02-11 20:00] VITALS: BP 97/60
[2019-02-11] MEDS: ATORVASTATIN 80 MG (LIPITOR) TABLET PO SCH (20:47)
[2019-02-12 00:30] VITALS: BP 97/56
[2019-02-12 03:50] VITALS: BP 98/54
[2019-02-12] MEDS: OMEGA 3 (FISH OIL) 1000 MG CAP PO SCH ×2 (06:04→17:49)
[2019-02-12] MEDS: PANTOPRAZOLE 40 MG (PROTONIX) TAB PO SCH (06:04)
[2019-02-12] MEDS: TICAGRELOR 90 MG TABLET (BRILINTA) PO SCH ×2 (06:04→17:49)
[2019-02-12 06:51] LABS: BASOPHILS % (AUTO) 0 % (0-10); EOSINOPHILS # (AUTO) 0.1 10^3/uL (0.0-0.3); EOSINOPHILS % (AUTO) 2 % (0-10); HEMATOCRIT 39 % (40-54); HEMOGLOBIN 12.9 G/DL (13.3-17.7); LYMPHOCYTES # (AUTO) 1.7 X 10^3 (1.0-4.0); LYMPHOCYTES % (AUTO) 22 % (12-44); MEAN CORPUSCULAR HEMOGLOBIN 30 PG (25-34); MEAN CORPUSCULAR HGB CONC 33 G/DL (32-36); MEAN CORPUSCULAR VOLUME 89 FL (80-99); MEAN PLATELET VOLUME 9.9 FL (7.4-10.4); MONOCYTES # (AUTO) 0.7 X 10^3 (0.0-1.0); MONOCYTES % (AUTO) 10 % (0-12); NEUTROPHILS # (AUTO) 5.2 X 10^3 (1.8-7.8); NEUTROPHILS % (AUTO) 67 % (42-75); PLATELET COUNT 352 10^3/uL (130-400); RED CELL DISTRIBUTION WIDTH 13.5 % (10.0-14.5); WHITE BLOOD COUNT 7.8 10^3/uL (4.3-11.0)
[2019-02-12 07:09] LABS: BUN/CREATININE RATIO 30; CALCIUM 9.3 MG/DL (8.5-10.1); CARBON DIOXIDE 22 MMOL/L (21-32); CHLORIDE 108 MMOL/L (98-107); CREATININE SERUM 0.87 MG/DL (0.60-1.30); GFR ESTIMATED > 60; GLUCOSE 90 MG/DL (70-105); MAGNESIUM 1.8 MG/DL (1.6-2.4); PHOSPHORUS 2.7 MG/DL (2.3-4.7); POTASSIUM 4.1 MMOL/L (3.6-5.0); SODIUM 139 MMOL/L (135-145)
[2019-02-12 07:50] VITALS: BP 94/60
[2019-02-12] MEDS: lisINopril 5 MG (PRINIVIL) TABLET PO SCH (08:20)
[2019-02-12] MEDS: ASPIRIN E.C. 81 MG (ECOTRIN) TAB PO SCH (08:20)
[2019-02-12] MEDS: meTOprolol TARTRATE 25 MG (LOPRESSOR) TABLET PO SCH ×2 (08:21→17:49)
[2019-02-12 11:18] VITALS: BP 103/57
--- NOTE | 2019-02-12 13:39 | Discharge Inst-Post CATH ---
Discharge Inst-CATH/EP Problems Reviewed?: Yes Post Cardiac Cath/EP D/C Inst Follow Up/Plan Appointment with Dr. Luna's office next week Appointment with [facility] next week <b>CARDIAC CATH/EP PROCEDURE DISCHARGE INSTRUCTIONS</b> ACTIVITY * Go Home directly and rest. * Limit activity of the leg (or wrist if it was used) for 7 days including aerobics, swimming, jogging, bicycling, etc. * Restrict stair-climbing for 7 days if possible, if not, climb up with your non-cath leg, then bring together on the same step. * Avoid lifting, pushing, pulling or excessive movement of the affected extremity for 7 days. * Customary sexual activity may be resumed after 2 days-use caution not to use a position that strains or causes pain to the affected extremity. * No driving for 24 hours. * NO SMOKING. * Avoid straining for bowel movements for 7 days. * Gentle walking on level ground is allowed. * Returning to work will depend on the type of procedure and the results. Your doctor will discuss this with you. CALL YOUR DOCTOR FOR ANY OF THE FOLLOWING: *If bleeding from the puncture site occurs- Apply gentle pressure to site with clean cloth and call your doctor or EMS. * If a knot or lump forms under the skin, increases in size, or causes pain. * If bruising appears to be worsening or moving further down your leg instead of disappearing. * Temperature above 101 F. CARE OF YOUR GROIN INCISION; * Bruising or purple discoloration of the skin near the puncture site is common. * You may shower only, no bathtub bathing for 5 days. Be careful to avoid slipping as your leg may feel stiff. * If a closure device was used on your femoral artery, please see the attached guide regarding care of the device and your leg. * Leave dressing on FOR 24 hours. CARE OF YOUR WRIST INCISION; * Bruising or purple discoloration of the skin near the puncture site is common. * You may shower. * DO NOT submerge wrist. * Leave dressing on FOR 24 hours. RASHID COPPOLA MD Feb 12, 2019 13:39
--- NOTE | 2019-02-12 13:42 | Cardiology Discharge Summary ---
Diagnosis/Chief Complaint Date of Admission Feb 07, 2019 at 18:50 Date of Discharge February 12, [address] elevation myocardial infarction Coronary artery disease Hypertension Hyperlipidemia Discharge Diagnosis acute ST elevation myocardial infarction Coronary artery disease Hypertension Hyperlipidemia Chief Complaint/HPI Chief Complaint/HPI 48 years old gentleman with history of coronary artery disease, had myocardial infarction last week, emergency Cardec catheterization and stenting to the LAD. Discharge home, did not take his medicine, was taking only Plavix. Still an active smoker. Start chest pain this afternoon and came into the emergency room. On my evaluation was feeling better. He had ST elevation in the anterior leads suggestive of acute myocardial infarction. Patient was admitted for emergency cardiac catheterization showing total occlusion of the LAD complex intervention was done and management as described below Discharge Summary Hospital Course Was the Problem List Reviewed?: Yes Hospital Course Status post acute ST elevation myocardial infarct and anterior wall, recent FL, had Alpine 2.75 time 18 mm stent to the LAD done on February 01, [address] Luna after STEMI. Had total occlusion of the LAD, underwent emergency balloon angioplasty to the LAD with improvement. Congestive heart failure, acute left ventricular systolic dysfunction, ischemic cardiomyopathy, akinesia of the anterior wall, ejection fraction 30 percent, continue to monitor. Next Borderline hypotension, better today, tolerating medication well. Continue on current medication monitor Patient is wearing lifevest Hyperlipidemia, maintained on Lipitor 80 mg daily Tobaccoism, educated on smoking cessation History of meth use History of marijuana use Noncompliant with medication, patient was kept in the hospital to receive all his medication, I will discharge him after receiving his evening dose of medication and he assured me that he will go in the morning to [facility] to receive all his medication, I gave him samples of Brilinta and he has aspirin at home and he assured that he will be compliant. He is scheduled to follow-up with Dr. Luna and continue to [facility] as an outpatient Labs Laboratory Tests 02/10/19 06:20: Carbon Dioxide Level 20L, Blood Urea Nitrogen 19H 02/10/19 06:28: Red Blood Count 4.32L, Hemoglobin 12.8L, Hematocrit 38L, Monocytes (%) (Auto) 14H 02/11/19 05:50: Red Blood Count 4.31L, Hemoglobin 13.1L, Hematocrit 38L, Monocytes (%) (Auto) 16H 02/12/19 06:23: Blood Urea Nitrogen 26H, Hemoglobin 12.9L, Hematocrit 39L, Chloride Level 108H Procedures None. Discharge Physical Examination Allergies: Coded Allergies: No Known Drug Allergies (Unverified , 05/29/11) Vitals & I&Os Vital Signs Date Time Temp Pulse Resp B/P (MAP) Pulse Ox O2 Delivery O2 Flow Rate FiO2 02/12/19 11:18 98.7 75 20 103/57 (72) 97 Room Air 02/09/19 04:00 2.00 General Appearance: Alert, Oriented X3, Cooperative, No Acute Distress HEENT: Atraumatic, PERRLA Respiratory: Clear to Auscultation, Normal Air Movement Cardiovascular: Regular Rate, Normal S1, Normal S2, No Murmurs Abdominal: Normal Bowel Sounds, Soft, No Tenderness, No Hepatosplenomegaly, No Masses Extremities: No Clubbing, No Cyanosis, No Edema, Normal Pulses, No Tend erness/Swelling Skin: No Rashes, No Breakdown, No Significant Lesion Neuro: Normal Gait, Normal Speech, Strength at 5/5 X4 Ext, Normal Tone, Sensation Intact, Cranial Nerves 3-12 NL, Reflexes 2+ Psych/Mental Status: Mental Status NL, Mood NL Discharge Home Medications Reviewed and agree with Discharge Medication list on patient's Discharge Instruction sheet Instructions to Patient/Family Please see electronic discharge instructions given to patient. Clinical Quality Measures AMI/AHF: ASA po Prior to arrival: Yes DVT/VTE Risk/Contraindication: Risk Factor Score Per Nursin RFS Level Per Nursing on Admit: 3=High RASHID COPPOLA MD Feb 12, 2019 13:42
[2019-02-12 16:00] VITALS: BP 112/69
[2019-02-12] MEDS: ATORVASTATIN 80 MG (LIPITOR) TABLET PO SCH (17:49)
[2019-02-12 17:56] VITALS: BP 112/69
--- NOTE | 2019-02-13 16:16 | NUR ---
CM/SS patient called and in need of assistance with medications since discharge yesterday. PALS program to cover Metoprolol, Lisinopril, and Lipitor. PALS form faxed to [facility], patient let know of the coverage of the meds by PALS, the patient had a coupon for 30 days free of Brilinta, and they would have to cover the aspirin.
== END 2019-02-12 18:00 | disposition home or self-care (01) | DRG 250 ==
LOC: EDUNIT# 16:46 → ER 16:47 → CATH 16:59 → ICU 18:50 → 4TH 02-09 10:30
PROVIDERS: ADMIT Internal Medicine Cardiovascular Disease; ATTEND Internal Medicine Cardiovascular Disease
PROC: 02703ZZ Dilation of Coronary Artery, One Artery, Percutaneous Approach (ICD-10-PCS; principal; 2019-02-07)
PROC: 4A023N7 Measurement of Cardiac Sampling and Pressure, Left Heart, Percutaneous Approach (ICD-10-PCS; 2019-02-07)
PROC: B2111ZZ Fluoroscopy of Multiple Coronary Arteries using Low Osmolar Contrast (ICD-10-PCS; 2019-02-07)
PROC: B2151ZZ Fluoroscopy of Left Heart using Low Osmolar Contrast (ICD-10-PCS; 2019-02-07)
DX: T82.855A Stenosis of coronary artery stent, initial encounter (principal); I22.0 Subsequent ST elevation (STEMI) myocardial infarction of anterior wall; I21.09 ST elevation (STEMI) myocardial infarction involving other coronary artery of anterior wall; I50.21 Acute systolic (congestive) heart failure; I74.3 Embolism and thrombosis of arteries of the lower extremities; I11.0 Hypertensive heart disease with heart failure; I25.10 Atherosclerotic heart disease of native coronary artery without angina pectoris; E78.5 Hyperlipidemia, unspecified; F17.210 Nicotine dependence, cigarettes, uncomplicated; I25.5 Ischemic cardiomyopathy; Z79.02 Long term (current) use of antithrombotics/antiplatelets; Z95.5 Presence of coronary angioplasty implant and graft; F12.90 Cannabis use, unspecified, uncomplicated
CPT/HCPCS: 36415; 71045; 80048; 80053; 80061; 81225; 83735; 83874; 84100; 84484; 85025; 85610; 85730; 87081; 93005; 93041; 93458; 96374; 96375

== ENCOUNTER 2019-04-06 19:47 | Observation (INO) | payer OTHER ==
[~2019-04-06] VITALS: Ht 188 cm; Wt 101.8 kg
[~2019-04-06 19:47] MED LIST changes: +ASPI-983 PO; +ATOR80TA76 PO; +LISI-556 PO; +TICA90TA PO
[2019-04-06 20:35] LABS: BASOPHILS % (AUTO) 0 % (0-10); EOSINOPHILS # (AUTO) 0.1 10^3/uL (0.0-0.3); EOSINOPHILS % (AUTO) 3 % (0-10); HEMATOCRIT 43 % (40-54); LYMPHOCYTES # (AUTO) 1.9 X 10^3 (1.0-4.0); LYMPHOCYTES % (AUTO) 36 % (12-44); MEAN CORPUSCULAR HEMOGLOBIN 30 PG (25-34); MEAN CORPUSCULAR HGB CONC 33 G/DL (32-36); MEAN CORPUSCULAR VOLUME 91 FL (80-99); MEAN PLATELET VOLUME 9.5 FL (7.4-10.4); MONOCYTES # (AUTO) 0.6 X 10^3 (0.0-1.0); MONOCYTES % (AUTO) 11 % (0-12); NEUTROPHILS # (AUTO) 2.6 X 10^3 (1.8-7.8); NEUTROPHILS % (AUTO) 49 % (42-75); PLATELET COUNT 284 10^3/uL (130-400); RED CELL DISTRIBUTION WIDTH 13.9 % (10.0-14.5); WHITE BLOOD COUNT 5.3 10^3/uL (4.3-11.0)
[2019-04-06 20:45] LABS: PROTHROMBIN TIME PATIENT 13.4 SEC (12.2-14.7)
--- NOTE | 2019-04-06 20:45 | Diagnostic Imaging Report ---
INDICATION: Generalized weakness. Comparison with 02/07/2019. FINDINGS: Portable chest. The lungs are well-aerated and clear. Heart is not enlarged. No pulmonary edema. No hilar adenopathy. No pneumothorax or pleural effusion. No bony abnormalities. IMPRESSION: Negative portable chest. Dictated by: Dictated on workstation # [id number]
[2019-04-06 20:53] LABS: ALANINE AMINOTRANSFERASE 18 U/L (0-55); ALBUMIN 4.4 GM/DL (3.2-4.5); ALKALINE PHOSPHATASE 82 U/L (40-136); BILIRUBIN,TOTAL 0.2 MG/DL (0.1-1.0); BUN/CREATININE RATIO 16; CALCIUM 9.3 MG/DL (8.5-10.1); CARBON DIOXIDE 24 MMOL/L (21-32); CHLORIDE 104 MMOL/L (98-107); CREATININE SERUM 1.05 MG/DL (0.60-1.30); GFR ESTIMATED > 60; GLUCOSE 68 MG/DL (70-105); MAGNESIUM 2.1 MG/DL (1.6-2.4); SODIUM 140 MMOL/L (135-145); TOTAL PROTEIN 7.5 GM/DL (6.4-8.2)
--- NOTE | 2019-04-06 21:02 | ED Cardiac General ---
History of Present Illness General Chief Complaint: Cardiac/General Problems Stated Complaint: WEAKNESS Nursing Triage Note: PATIENT HAD 2 RI'S IN THE LAST MONTH. HE HAS FELT MORE WEAK TODAY. HE STATES THAT HE WOKE UP FROM A NAP AND HIS LIFE VEST INDICATED THAT HE HAD BEEN SHOCKED. HE WANTED TO GET CHECKED OUT. Source: patient Exam Limitations: no limitations History of Present Illness Date Seen by Provider: Apr 06, 2019 Time Seen by Provider: 20:20 Initial Comments This 49-year-old gentleman presents to the emergency room with concerns about his Zoll Life Vest. When he woke from a nap today the machine gave him a message stating a treatment had been delivered. It then gave him a message to lubricate and reapply the defibrillator pads. Patient states he was not aware of any shocks delivered and he has felt at baseline today. He has been feeling extremely fatigued but that is not new today. He denies any chest pain, cough, etc. During our assessment, patient noted that the wires leading to the defibrillator pads were actually ripped out of the device and not at all connected. Patient has history of STEMI in January with interventions performed in the [employer]. It was noted at that time ejection fraction was 30 percent. Allergies and Home Medications Allergies Coded Allergies: No Known Drug Allergies (Unverified , 05/29/11) Home Medications Aspirin 81 Mg Tablet.dr, 81 MG PO DAILY Prescribed by: MARGARITO IBANEZ on 02/09/19 154 Atorvastatin Calcium 80 Mg Tablet, 80 MG PO HS Prescribed by: MARGARITO IBANEZ on 02/09/19 154 Lisinopril 5 Mg Tablet, 2.5 MG PO DAILY Prescribed by: MARGARITO IBANEZ on 02/09/19 154 Metoprolol Tartrate 25 Mg Tablet, 12.5 MG PO BID Prescribed by: MARGARITO IBANEZ on 02/09/19 154 Ticagrelor 90 Mg Tablet, 90 MG PO Q12H Prescribed by: MARGARITO IBANEZ on 02/09/19 154 Patient Home Medication List Home Medication List Reviewed: Yes Review of Systems Review of Systems Constitutional: see HPI EENTM: No Symptoms Reported Respiratory: No Symptoms Reported Cardiovascular: See HPI Gastrointestinal: No Symptoms Reported Genitourinary: No Symptoms Reported Musculoskeletal: no symptoms reported Skin: no symptoms reported Psychiatric/Neurological: No Symptoms Reported Endocrine: No Symptoms Reported Hematologic/Lymphatic: No Symptoms Reported Past Nekjhfj-Srugyo-Tcifuc Hx Past Med/Social Hx: Reviewed and Corrections made Patient Social History Alcohol Use: Denies Use Recreational Drug Use: No Drug of Choice: METH, THC- PAST Smoking Status: Current Everyday Smoker Type Used: Cigarettes 2nd Hand Smoke Exposure: Yes Recent Foreign Travel: No Contact w/Someone Who Travel: No Recent Infectious Disease Expo: No Recent Hopitalizations: No Seasonal Allergies Seasonal Allergies: No Past Medical History Surgeries: Yes (LEFT SHOULDER BICEPS TENDON, HEART STENTS 02/01/19) Orthopedic Respiratory: No Cardiac: Yes (heart failure) Cardiomyopathy, Coronary Artery Disease Neurological: No Genitourinary: No Gastrointestinal: No Musculoskeletal: Yes (LEFT SHOULDER SURGERY) Endocrine: No HEENT: No Cancer: No Psychosocial: No Integumentary: No Blood Disorders: No Family Medical History Diabetes mellitus 19 MOTHER, Onset:Unknown Myocardial infarction 19 MOTHER Heart Disease, Diabetes Physical Exam Vital Signs Vital Signs - First Documented 04/06/19 19:57 Pulse 97 Resp 20 B/P (MAP) 126/81 (96) Pulse Ox 100 Capillary Refill : Less Than 3 Seconds Height, Weight, BMI Height: 6'2.00" Weight: 225lbs. 15.0oz. 102.627391io; 30.00 BMI Method:Stated General Appearance: No Apparent Distress, WD/WN HEENT: Normal ENT Inspection Neck: Normal Inspection Respiratory: Lungs Clear, Normal Breath Sounds, No Accessory Muscle Use Cardiovascular: Regular Rate, Rhythm, No Edema, No Murmur Extremity: Normal Inspection, No Pedal Edema Neurologic/Psychiatric: Alert, Oriented x3, No Motor/Sensory Deficits, Normal Mood/Affect, overlocker II-XII Norm as Tested Skin: Normal Color, Warm/Dry Progress/Results/Core Measures Results/Orders Lab Results Laboratory Tests Test 04/06/19 20:20 Range/Units White Blood Count 5.3 4.3-11.0 10^3/uL Red Blood Count 4.72 4.35-5.85 10^6/uL Hemoglobin 14.0 13.3-17.7 G/DL Hematocrit 43 40-54 % Mean Corpuscular Volume 91 80-99 FL Mean Corpuscular Hemoglobin 30 25-34 PG Mean Corpuscular Hemoglobin Concent 33 32-36 G/DL Red Cell Distribution Width 13.9 10.0-14.5 % Platelet Count 284 130-400 10^3/uL Mean Platelet Volume 9.5 7.4-10.4 FL Neutrophils (%) (Auto) 49 42-75 % Lymphocytes (%) (Auto) 36 12-44 % Monocytes (%) (Auto) 11 0-12 % Eosinophils (%) (Auto) 3 0-10 % Basophils (%) (Auto) 0 0-10 % Neutrophils # (Auto) 2.6 1.8-7.8 X 10^3 Lymphocytes # (Auto) 1.9 1.0-4.0 X 10^3 Monocytes # (Auto) 0.6 0.0-1.0 X 10^3 Eosinophils # (Auto) 0.1 0.0-0.3 10^3/uL Basophils # (Auto) 0.0 0.0-0.1 10^3/uL Prothrombin Time 13.4 12.2-14.7 SEC INR Comment 1.0 0.8-1.4 Activated Partial Thromboplast Time 28 24-35 SEC Sodium Level 140 135-145 MMOL/L Potassium Level 4.0 3.6-5.0 MMOL/L Chloride Level 104 98-107 MMOL/L Carbon Dioxide Level 24 21-32 MMOL/L Anion Gap 12 5-14 MMOL/L Blood Urea Nitrogen 17 7-18 MG/DL Creatinine 1.05 0.60-1.30 MG/DL Estimat Glomerular Filtration Rate > 60 BUN/Creatinine Ratio 16 Glucose Level 68 L 70-105 MG/DL Calcium Level 9.3 8.5-10.1 MG/DL Corrected Calcium 9.0 8.5-10.1 MG/DL Magnesium Level 2.1 1.6-2.4 MG/DL Total Bilirubin 0.2 0.1-1.0 MG/DL Aspartate Amino Transf (AST/SGOT) 16 5-34 U/L Alanine Aminotransferase (ALT/SGPT) 18 0-55 U/L Alkaline Phosphatase 82 40-136 U/L Myoglobin 34.0 10.0-92.0 NG/ML Troponin I < 0.028 <0.028 NG/ML Total Protein 7.5 6.4-8.2 GM/DL Albumin 4.4 3.2-4.5 GM/DL My Orders Orders - OSBALDO MCKINLEY MD Cbc With Automated Diff (04/06/19 20:20) Magnesium (04/06/19 20:20) Chest 1 View, Ap/Pa Only (04/06/19 20:20) Ekg Tracing (04/06/19 20:20) Cardiac Profile 1 (04/06/19 20:20) Comprehensive Metabolic Panel (04/06/19 20:20) Myoglobin Serum (04/06/19 20:20) Protime With Inr (04/06/19 20:20) Partial Thromboplastin Time (04/06/19 20:20) O2 (04/06/19 20:20) Monitor-Rhythm Ecg Trace Only (04/06/19 20:20) Lipid Panel (04/07/19 06:00) Ed Iv/Invasive Line Start (04/06/19 20:20) Ticagrelor Tablet (Brilinta Tablet) (04/06/19 23:15) Vital Signs/I&O 04/06/19 19:57 Pulse 97 Resp 20 B/P (MAP) 126/81 (96) Pulse Ox 100 Blood Pressure Mean: 96 Progress Progress Note : Time: 23:31 Progress Note David was contacted and an urgent request was placed for a nutrition representative consultation. They reported the turnaround time could be is much as 24 hours. In the meantime, the patient, Dr. Almaraz, and I are concerned about his being unprotected. We therefore will admit for observation on telemetry. Patient had not yet taken his evening dose of Brilinta. Brilinta and aspirin were taken this morning. He was given a dose of Brilinta prior to admission. He was noted to have a couple of low blood pressures while asleep. Patient is asymptomatic with no shortness of breath or lightheadedness at this time. Blood pressure normalized when he was awake and the cuff was moved to his left arm. I will hold his blood pressure medications (lisinopril and metoprolol) until he is further assessed. We will continue aspirin and Brilinta. Initial ECG Impression Date: Apr 06, 2019 Initial ECG Impression Time: 20:32 Initial ECG Rate: 85 Initial ECG Rhythm: S.Tach Comment Sinus rhythm with chronic right bundle branch block similar to prior. No acute ST elevation or depression. No axis deviation. Diagnostic Imaging Diagonstic Imaging: Xray Plain Films/CT/US/NM/MRI: chest Comments Chest x-ray viewed by me. Report not yet available. No acute abnormalities appreciated. Departure Communication (Admissions) Time/Spoke to Admitting Phy: 22:47 Dr. Almaraz Impression Primary Impression: Heart failure Qualified Codes: I50.9 - Heart failure, unspecified Additional Impression: Defective Life Vest Disposition: ADMITTED INPATIENT Condition: Stable Admissions Decision to Admit Reason: Admit from ER (General) Decision to Admit/Date: Apr 06, 2019 Time/Decision to Admit Time: 22:47 Departure-Patient Inst. Referrals: NO,LOCAL PHYSICIAN (PCP/Family) Primary Care Physician OSBALDO MCKINLEY MD Apr 06, 2019 21:01
--- NOTE | 2019-04-06 21:21 | NUR ---
Pt resting comfortably; denies needs at this time. Will continue to monitor
--- NOTE | 2019-04-06 22:25 | NUR ---
Pt received phone call. Phone taken to pt and BP rechecked at this time. Systolic 98 at this time.
--- NOTE | 2019-04-06 22:45 | NUR ---
Pt's BP cuff moved to other arm; systolic 111 at this time.
--- NOTE | 2019-04-06 22:59 | NUR ---
report given to Dong
[2019-04-06] MEDS: TICAGRELOR 90 MG TABLET (BRILINTA) PO SCH ×2 (23:19→23:20)
--- NOTE | 2019-04-07 00:15 | NUR ---
YURIY MARTINI Jojo admitted to room 432-1, with an admitting diagnosis of HEART FAILURE AND DEFETIVE LIFE BEST, on 04/06/19 from ED via , accompanied by ED STAFF. YURIY MARTINI introduced to surroundings, call light, bed controls, phone, TV, temperature control, lights, meal times, smoking policy, visitor policy, side rail policy, bathrooms and showers. Patient Rights given to patient in the handbook. YURIY MARTINI verbalizes understanding that [facility] is not responsible for the loss or damage to any personal effects or valuables that are kept in the patients posession during their hospitalization. YURIY MARTINI verbalizes understanding of Interdisciplinary Patient Education. Patient and/or family were informed about the Rapid Response Team and its purpose.
[2019-04-07 02:06] VITALS: BP 98/62
[2019-04-07 04:29] VITALS: BP 100/57
[2019-04-07 04:57] VITALS: BP 98/62
[2019-04-07 05:36] LABS: CHOLESTEROL 105 MG/DL (< 200); HDL CHOLESTEROL 40 MG/DL (40-60); TRIGLYCERIDES 69 MG/DL (<150); VLDL CHOLESTEROL 14 MG/DL (5-40)
[2019-04-07] MEDS ORDERED: FLU QUADRIvalent (5+ YOA) 2019-2020 (AFLURIA) 0.5 ML IM ONE ×2 (07:15→09:22)
[2019-04-07 07:51] VITALS: BP 94/58
--- NOTE | 2019-04-07 08:14 | NUR ---
PRIOR TO A.M. MEDICATIONS PULSE WAS 81 B/P WAS 94/58
[2019-04-07] MEDS ORDERED: ASPIRIN 81 MG CHEW (CHILDREN'S ASA) PO SCH (09:00)
[2019-04-07] MEDS ORDERED: TICAGRELOR 90 MG TABLET (BRILINTA) PO SCH ×2 (09:00→09:45)
[2019-04-07] MEDS: TICAGRELOR 90 MG TABLET (BRILINTA) PO SCH (09:31)
--- NOTE | 2019-04-07 09:41 | Short Stay Summary ---
History of Present Illness History of Present Illness Reason for visit/HPI 49 years old gentleman with history of coronary artery disease, congestive heart failure, using LifeVest, came into the emergency room last night claiming that the LifeVest given indication that he receive the treatment, denied any pain or feeling any shock, on arrival to the emergency room it appear that the LifeVest was dissected and has some wires pulled out. Denied any other symptoms. Currently sitting in bed comfortably, no active chest pain. Date of Admission Apr 06, 2019 at 23:08 Date of Discharge April 07, 2019 Time Seen by Provider: 09:37 Attending Physician Rashid Almaraz MD Admitting Physician [facility] Consult Allergies and Home Medications Allergies Coded Allergies: No Known Drug Allergies (Unverified , 05/29/11) Home Medications Aspirin 81 Mg Tablet.dr, 81 MG PO DAILY Prescribed by: MARGARITO IBANEZ on 02/09/19 1542 Atorvastatin Calcium 80 Mg Tablet, 80 MG PO HS Prescribed by: MARGARITO IBANEZ on 02/09/19 1542 Lisinopril 5 Mg Tablet, 2.5 MG PO DAILY Prescribed by: MARGARITO IBANEZ on 02/09/19 1542 Metoprolol Tartrate 25 Mg Tablet, 12.5 MG PO BID Prescribed by: MARGARITO IBANEZ on 02/09/19 1542 Ticagrelor 90 Mg Tablet, 90 MG PO Q12H Prescribed by: MARGARITO IBANEZ on 02/09/19 1542 Patient Home Medication List Home Medication List Reviewed: Yes Past Kplzbor-Oojmax-Kmffpl Hx Patient Social History Marrital Status: single Employed/Student: retired Alcohol Use: Denies Use Recreational Drug Use: No Drug of Choice: METH, THC- PAST Smoking Status: Current Everyday Smoker Type Used: Cigarettes 2nd Hand Smoke Exposure: Yes Recent Foreign Travel: No Contact w/other who traveled: No Recent Hopitalizations: No Recent Infectious Disease Expo: No Seasonal Allergies Seasonal Allergies: No Surgeries Yes (LEFT SHOULDER BICEPS TENDON, HEART STENTS 02/01/19) Orthopedic Respiratory No Cardiovascular Yes (heart failure) Cardiomyopathy, Coronary Artery Disease Neurological No Genitourinary No Gastrointestinal No Musculoskeletal Yes (LEFT SHOULDER SURGERY) Endocrine History of Endocrine Disorders: No HEENT History of HEENT Disorders: No Cancer No Psychosocial History of Psychiatric Problem: No Integumentary History of Skin or Integumenta: No Blood Transfusions History of Blood Disorders: No Family Medical History Significant Family History: Heart Disease, Diabetes Family Hx: Diabetes mellitus 19 MOTHER, Onset:Unknown Myocardial infarction 19 MOTHER Review of Systems Constitutional: see HPI; No chills, No diaphoresis, No dizziness, No fever, No malaise, No weakness, No weight gain, No weight loss, No other EENTM: see HPI Respiratory: see HPI; No cough, No dyspnea on exertion, No hemoptysis, No orthopnea, No phlegm, No short of breath, No stridor, No wheezing, No other Cardiovascular: see HPI; No chest pain, No edema, No Hx of Intervention, No palpitations, No syncope, No vascular heart diseas, No other Gastrointestinal: see HPI Genitourinary: see HPI Musculoskeletal: see HPI Skin: see HPI Psychiatric/Neurological: No Symptoms Reported, See HPI Physical Exam Vital Signs Vital Signs - First Documented 04/06/19 04/07/19 19:57 00:40 Temp 36.9 Pulse 97 Resp 20 B/P (MAP) 126/81 (96) Pulse Ox 100 O2 Delivery Room Air Capillary Refill : Less Than 3 Seconds Height, Weight, BMI Height: 6'2.00" Weight: 225lbs. 15.0oz. 102.004908rf; 28.80 BMI Method:Stated General Appearance: No Apparent Distress, WD/WN Eyes: Bilateral Eye Normal Inspection, Bilateral Eye PERRL, Bilateral Eye EOMI HEENT: PERRL/EOMI, TMs Normal, Normal ENT Inspection, Pharynx Normal Neck: Full Range of Motion, Normal Inspection, Non Tender, Supple, Carotid Bruit Respiratory: Chest Non Tender, Lungs Clear, Normal Breath Sounds, No Accessory Muscle Use, No Respiratory Distress Cardiovascular: Regular Rate, Rhythm, No Edema, No Gallop, No JVD, No Murmur, Normal Peripheral Pulses Gastrointestinal: Normal Bowel Sounds, No Organomegaly, No Pulsatile Mass, Non Tender, Soft Back: Normal Inspection, No CVA Tenderness, No Vertebral Tenderness Extremity: Normal Capillary Refill, Normal Inspection, Normal Range of Motion, Non Tender, No Calf Tenderness, No Pedal Edema Neurologic/Psychiatric: Alert, Oriented x3, No Motor/Sensory Deficits, Normal Mood/Affect Skin: Normal Color, Warm/Dry Lymphatic: No Adenopathy Clinical Quality Measures Admission Status Admission Status: Observation DVT/VTE Risk/Contraindication: Risk Factor Score Per Nursin RFS Level Per Nursing on Admit: 2=Moderate Short Stay Diagnosis Discharge Diagnosis-Short Stay Admission Diagnosis: Coronary artery disease Congestive heart failure Hypertension Hyperlipidemia Final Discharge Diagnosis: Coronary artery disease Congestive heart failure, chronic compensated left ventricular systolic dysfunction, ischemic cardiomyopathy Hypertension Hyperlipidemia Conclusion Labs Laboratory Tests 04/06/19 20:20: White Blood Count 5.3, Red Blood Count 4.72, Hemoglobin 14.0, Hematocrit 43, Mean Corpuscular Volume 91, Mean Corpuscular Hemoglobin 30, Mean Corpuscular Hemoglobin Concent 33, Red Cell Distribution Width 13.9, Platelet Count 284, Mean Platelet Volume 9.5, Neutrophils (%) (Auto) 49, Lymphocytes (%) (Auto) 36, Monocytes (%) (Auto) 11, Eosinophils (%) (Auto) 3, Basophils (%) (Auto) 0, Neutrophils # (Auto) 2.6, Lymphocytes # (Auto) 1.9, Monocytes # (Auto) 0.6, Eosinophils # (Auto) 0.1, Basophils # (Auto) 0.0, Prothrombin Time 13.4, INR Comment 1.0, Activated Partial Thromboplast Time 28, Sodium Level 140, Potassium Level 4.0, Chloride Level 104, Carbon Dioxide Level 24, Anion Gap 12, Blood Urea Nitrogen 17, Creatinine 1.05, Estimat Glomerular Filtration Rate > 60, BUN/Creatinine Ratio 16, Glucose Level 68L, Calcium Level 9.3, Corrected Calcium 9.0, Magnesium Level 2.1, Total Bilirubin 0.2, Aspartate Amino Transf (AST/SGOT) 16, Alanine Aminotransferase (ALT/SGPT) 18, Alkaline Phosphatase 82, Myoglobin 34.0, Troponin I < 0.028, Total Protein 7.5, Albumin 4.4 04/07/19 05:11: Triglycerides Level 69, Cholesterol Level 105, LDL Cholesterol Direct 51, VLDL Cholesterol 14, HDL Cholesterol 40 Conclusion/Plan Restrictive lifevest, being replaced today. Coronary artery disease, history of multiple heart attacks, had Alpine 2.75 x 18 mm stent to the LAD done on February 01, [address] Luna after STEMI. Had total occlusion of the LAD, underwent emergency balloon angioplasty to the LAD with improvement. Congestive heart failure, chronic compensated left ventricular systolic dysfunction, ischemic cardiomyopathy, ejection fraction 30 percent Borderline hypotension, continue on current medications and monitor as an outpatient Hyperlipidemia, maintained on Lipitor 80 mg daily Tobaccoism, educated on smoking cessation History of meth use History of marijuana use RASHID ALMARAZ MD Apr 07, 2019 09:41
[2019-04-07 11:29] VITALS: BP 96/61
[2019-04-07 11:30] VITALS: BP 96/61
[2019-04-07] MEDS ORDERED: meTOprolol TARTRATE 25 MG (LOPRESSOR) TABLET PO SCH (21:00)
[2019-04-08] MEDS ORDERED: lisINopril 5 MG (PRINIVIL) TABLET PO SCH (09:00)
[2019-04-08] MEDS ORDERED: ASPIRIN E.C. 81 MG (ECOTRIN) TAB PO SCH (09:00)
== END 2019-04-07 11:30 | disposition home or self-care (01) ==
LOC: EDUNIT# 19:47 → ER 19:48 → 4TH 23:08
PROVIDERS: ADMIT Internal Medicine Cardiovascular Disease; ATTEND Internal Medicine Cardiovascular Disease
DX: I25.10 Atherosclerotic heart disease of native coronary artery without angina pectoris (principal); I50.9 Heart failure, unspecified; I11.0 Hypertensive heart disease with heart failure; E78.5 Hyperlipidemia, unspecified; T82.897A Other specified complication of cardiac prosthetic devices, implants and grafts, initial encounter; F17.210 Nicotine dependence, cigarettes, uncomplicated; Z79.82 Long term (current) use of aspirin; Z79.899 Other long term (current) drug therapy; Z83.3 Family history of diabetes mellitus; Z82.49 Family history of ischemic heart disease and other diseases of the circulatory system
CPT/HCPCS: 36415; 71045; 80053; 80061; 83735; 83874; 84484; 85025; 85610; 85730; 93005; 93041; G0378

== ENCOUNTER → 2019-05-25 | Outpatient (CLI) | payer SELFPAY | LOC: CARD 14:22 | PROVIDERS: ATTEND Nurse Practitioner Family | DX: I07.1 Rheumatic tricuspid insufficiency (principal); I25.10 Atherosclerotic heart disease of native coronary artery without angina pectoris; I25.5 Ischemic cardiomyopathy | CPT/HCPCS: 93306 ==

== ENCOUNTER → 2019-10-26 | Outpatient (CLI) | payer SELFPAY ==
[~2019-10-26] MED LIST changes: +CEFU500T63 PO; +METO50TA15 PO
== END ==
LOC: LABNPT 09:43
PROVIDERS: ATTEND Nurse Practitioner Family
DX: Z01.818 Encounter for other preprocedural examination (principal)
CPT/HCPCS: 87635

== ENCOUNTER 2019-10-30 06:49 | Day surgery (SDC) | payer SELFPAY ==
[2019-10-30] VITALS (14 sets, daily range): BP systolic 104–128; BP diastolic 63–95
[~2019-10-30] VITALS: Ht 187 cm; Wt 104.0 kg
[~2019-10-30 06:49] MED LIST changes: -CEFU500T63 PO; -METO50TA15 PO
[2019-10-30] MEDS ORDERED: NS IV 1000 ML 1,000 ML ONE (07:56)
[2019-10-30] MEDS ORDERED: NS IV 1000 ML 1,000 ML IV SCH ×2 (08:05→11:06)
[2019-10-30] MEDS ORDERED: ceFAZolin INJECTION 1,000 MG VIAL IV ONE (08:15)
[2019-10-30] MEDS ORDERED: BACITRACIN INJECTION 50,000 UNIT, SODIUM CHLORIDE 0.9% IRRIGATIO 500 ML IR ONE ×2 (08:15)
[2019-10-30 08:34] LABS: HEMOGLOBIN 15.5 G/DL (13.3-17.7); MEAN PLATELET VOLUME 9.6 FL (7.4-10.4); RED CELL DISTRIBUTION WIDTH 13.7 % (10.0-14.5); WHITE BLOOD COUNT 8.3 10^3/uL (4.3-11.0)
[2019-10-30] MEDS ORDERED: MIDAZOLAM 5 MG/5 ML (VERSED) VIAL ONE ×2 (08:44→09:24)
[2019-10-30] MEDS ORDERED: fentaNYL INJECTION 100 MCG/2 ML AMP ONE ×2 (08:45→09:24)
[2019-10-30] MEDS ORDERED: METO50TA15 PO (08:46)
[2019-10-30 08:47] LABS: INR 0.9 (0.8-1.4); PROTHROMBIN TIME PATIENT 12.9 SEC (12.2-14.7)
[2019-10-30 08:49] LABS: AMPHETAMINE SCREEN, URINE POSITIVE (NEGATIVE); BARBITURATE SCREEN URINE NEGATIVE (NEGATIVE); BENZODIAZEPINES SCREEN URINE NEGATIVE (NEGATIVE); CANNABINOID SCREEN, URINE POSITIVE (NEGATIVE); COCAINE SCREEN URINE NEGATIVE (NEGATIVE); METHADONE STAT NEGATIVE (NEGATIVE); METHAMPHETAMINE SCREEN URINE S POSITIVE (NEGATIVE); OPIATE SCREEN URINE NEGATIVE (NEGATIVE); OXYCODONE STAT NEGATIVE (NEGATIVE); PROPOXYPHENE STAT NEGATIVE (NEGATIVE); TRICYCLIC ANTIDEPRESSANTS SCRE NEGATIVE (NEGATIVE)
[2019-10-30 08:56] LABS: ALANINE AMINOTRANSFERASE 19 U/L (0-55); ALBUMIN 4.7 GM/DL (3.2-4.5); ALKALINE PHOSPHATASE 95 U/L (40-136); BILIRUBIN,TOTAL 0.3 MG/DL (0.1-1.0); BUN/CREATININE RATIO 15; CALCIUM 9.6 MG/DL (8.5-10.1); CARBON DIOXIDE 24 MMOL/L (21-32); CHLORIDE 104 MMOL/L (98-107); CHOLESTEROL 175 MG/DL (< 200); CREATININE SERUM 1.08 MG/DL (0.60-1.30); GFR ESTIMATED > 60; GLUCOSE 123 MG/DL (70-105); HDL CHOLESTEROL 51 MG/DL (40-60); POTASSIUM 4.4 MMOL/L (3.6-5.0); SODIUM 138 MMOL/L (135-145); TOTAL PROTEIN 8.2 GM/DL (6.4-8.2); TRIGLYCERIDES 64 MG/DL (<150); VLDL CHOLESTEROL 13 MG/DL (5-40)
--- NOTE | 2019-10-30 09:36 | Cardiac Procedure Note-CS/ASA ---
Pre-Procedure Note Pre-Op Procedure Note H&P Reviewed The H&P was reviewed, patient examined and no changes noted. Date H&P Reviewed: October 30, 2019 Time H&P Reviewed: 09:36 Conscious Sedation Pre-Proced Time 09:36 ASA Score 4 For ASA 3 and 4: Consider anesthesia and medical clearance. Also, for patients with a history of failed moderate sedation consider anesthesia. Airway Lungs Heart ASA score ASA 1: a normal healthy patient ASA 2: a patient with a mild systemic disease (mid diabetes, controlled hypertension, obesity ASA 3: a patient with a severe systemic disease that limits activity (angina, COPD, prior Myocardial infarction) ASA 4: a patient with an incapacitating disease that is a constant threat to life (CHF, renal failure) ASA 5: a moribund patient not expected to survive 24 hrs. (ruptured aneurysm) ASA 6: a declared brain- patient whose organs are being harvested. For emergent operations, add the letter E after the classification Mallampati Classification Grade 2 Sedation Plan Analgesia, Amnesia, Plan communicated to team members, Discussed options with patient/fam, Discussed risks with patient/fam The patient is an appropriate candidate to undergo the planned procedure, sedation, and anesthesia. The patient immediately re-assessed prior to indication. ALETHEA ALMAZAN MD FACP FAC CCDS October 30, 2019 09:36
[2019-10-30] MEDS ORDERED: NEO/POLY/BAC (NEOSPORIN) OINT 15 GM TUBE ONE (10:30)
[2019-10-30] MEDS ORDERED: PATIENT MAY USE OWN MEDS, ALL PO SCH (11:15)
[2019-10-30] MEDS ORDERED: ACETAMINOPHEN 325 MG TABLET PO PRN (11:15)
--- NOTE | 2019-10-30 11:30 | NUR ---
YURIY MARTINI Jojo admitted to room 512-1, with an admitting diagnosis of S/P ICD PLACEMENT, on 10/30/19 from [facility] via BED, accompanied by STAFF.YURIY MARTINI introduced to surroundings, call light, bed controls, phone, TV, temperature control, lights, meal times, smoking policy, visitor policy, side rail policy, bathrooms and showers. Patient Rights given to patient in the handbook. YURIY MARTINI verbalizes understanding that [facility] is not responsible for the loss or damage to any personal effects or valuables that are kept in the patients posession during their hospitalization. The following Patient Care Plans were discussed with the PT: Discharge Planning, PAIN,HIGH RISK BLEEDING, and KNOWLEDGE DEFICIT. YURIY MARTINI verbalizes understanding of Interdisciplinary Patient Education. Patient and family were informed about the Rapid Response Team and its purpose.
[2019-10-30] MEDS: TICAGRELOR 90 MG TABLET (BRILINTA) PO SCH ×2 (12:59→23:04)
--- NOTE | 2019-10-30 13:36 | OPERATIVE REPORT ---
DATE OF SERVICE: 10/30/2019 PREOPERATIVE DIAGNOSES: Ischemic cardiomyopathy with ejection fraction 30% to 35% and chronic systolic congestive heart failure, class II to III. POSTOPERATIVE DIAGNOSES. Ischemic cardiomyopathy with ejection fraction 30% to 35% and chronic systolic congestive heart failure, class II to III. PROCEDURE: Single chamber defibrillator implantation. ESTIMATED BLOOD LOSS: Less than 20 mL. The patient is a 49-year-old gentleman who is known to have ischemic cardiomyopathy that remains persistent for 9 months following the last coronary intervention of 02/07/2019 when he had presented with anterior myocardial infarction. He has been wearing a LifeVest. Because the ejection fraction remains unchanged, primary prevention for sudden cardiac catheterization was recommended with a permanent defibrillator. Informed consent was obtained. DESCRIPTION OF PROCEDURE: He was brought to the cardiac catheterization laboratory. The left prepectoral area was prepared and draped in the usual sterile fashion. Ultrasound was used to locate the axillary and subclavian vein. Seldinger technique was used to advance a guidewire into the subclavian vein and the tip was placed in the right atrium. Sharp and blunt dissection was used to make a pacemaker pocket. Pacemaker pocket was packed with gauze soaked in antibiotic solution. The guidewire was used to advance a sheath. The guidewire was removed. The sheath was used to advance the lead. The sheath was removed. The lead was manipulated under fluoroscopy and the tip was placed at the right ventricular apex. This is a passive fixation (tined) lead. Good sensing and capture thresholds were obtained. The antibiotic soaks and the pacemaker pocket were removed. The pocket was thoroughly irrigated with an antibiotic solution. Good hemostasis was assured. The lead was attached to the prepectoral fascia using a sleeve and 0 Ethibond. The lead was attached to a defibrillator. The lead and the device were placed in the pocket and the pocket was closed in 2 layers using 3.0 Vicryl. The lead is Medtronic model 2812C98 with serial #[id number]. The device is Medtronic model TSME1X2 with serial #[id number]. The pacing impedance was 646 ohms. R waves were measured at 5.5 millivolts. Capture threshold was 0.3 millivolts at 0.4 milliseconds. DFT was not performed because pt tested positive for methamphetamine and the anesthesiologist felt that there was considerable risk of anesthesia. The patient tolerated the procedure well and was transferred to the floor in a stable condition. Job ID: [id number] DocumentID: [id number] Dictated Date: 10/30/2019 11:01:01 Remediation Consultant Date: 10/30/2019 13:35:29 Dictated By: ALETHEA ALMAZAN MD, MA, FACP, FACC, MTDD
--- NOTE | 2019-10-30 13:55 | Diagnostic Imaging Report ---
INDICATION: Postcardiac device placement. COMPARISON: April 06, 2019. TECHNIQUE: Two radiographs of the chest dated October 30, 2019. FINDINGS: Interval placement of a single-lead AICD device with the battery pack overlying left chest and the distal tip terminating overlying the right ventricle. The cardiac silhouette is at the upper limits of normal in size. Pulmonary vasculature is upper limits of normal. The lateral radiograph suggests extensive opacities posteriorly, though these were not definitively visualized on the frontal radiograph. No significant pleural effusion. No pneumothorax. No acute osseous abnormality. IMPRESSION: Interval placement of an AICD/pacer without evidence of a pneumothorax. Slight prominence of the cardiac silhouette and pulmonary vasculature, likely accentuated by low lung volumes. Extensive opacities posteriorly on the lateral radiograph only. This is favored related to superposition of shadows, though dependent atelectasis or additional infiltrate would be additional considerations. Recommend radiographic follow-up with frontal and lateral radiographs within one week. Dictated by: Dictated on workstation # [id number]
[2019-10-30] MEDS: meTOprolol TARTRATE 50 MG (LOPRESSOR) TAB PO SCH (20:15)
--- NOTE | 2019-10-30 21:31 | NUR ---
INTAKE: 200ML OUTPUT: X1 URINARY VOID
[2019-10-31] VITALS: BP 113/76
[2019-10-31 03:38] VITALS: BP 112/74
[2019-10-31 04:02] LABS: HEMOGLOBIN 14.8 G/DL (13.3-17.7); MEAN PLATELET VOLUME 9.9 FL (7.4-10.4); RED CELL DISTRIBUTION WIDTH 13.7 % (10.0-14.5); WHITE BLOOD COUNT 7.2 10^3/uL (4.3-11.0)
[2019-10-31 04:16] LABS: CHLORIDE 108 MMOL/L (98-107); POTASSIUM 4.1 MMOL/L (3.6-5.0); SODIUM 137 MMOL/L (135-145)
[2019-10-31 04:18] LABS: CALCIUM 8.7 MG/DL (8.5-10.1)
[2019-10-31 04:19] LABS: GLUCOSE 99 MG/DL (70-105); TOTAL PROTEIN 6.7 GM/DL (6.4-8.2)
[2019-10-31 04:20] LABS: CARBON DIOXIDE 20 MMOL/L (21-32)
[2019-10-31 04:21] LABS: BILIRUBIN,TOTAL 0.6 MG/DL (0.1-1.0)
[2019-10-31 04:22] LABS: ALKALINE PHOSPHATASE 83 U/L (40-136); CREATININE SERUM 0.83 MG/DL (0.60-1.30); GFR ESTIMATED > 60
[2019-10-31 04:23] LABS: BUN/CREATININE RATIO 14
[2019-10-31 04:25] LABS: ALANINE AMINOTRANSFERASE 16 U/L (0-55)
--- NOTE | 2019-10-31 06:01 | NUR ---
INTAKE: 250ML OUTPUT: X1 URINARY VOID
--- NOTE | 2019-10-31 08:11 | Progress Note - Cardiology ---
Cardiology SOAP Progress Note Subjective: Lying in bed. Denies c/o CP, palpitations, syncope, near syncope or dyspnea. No c/o discomfort at the device site. Objective: I&O/Vital Signs 10/31/19 10/31/19 10/31/19 10/31/19 00:00 01:00 03:38 06:33 Temp 36.8 36.6 Pulse 75 82 68 73 Resp 19 16 B/P (MAP) 113/76 (88) 112/74 (87) Pulse Ox 97 96 O2 Delivery Room Air Room Air 10/31/19 10/31/19 08:00 08:49 Temp 36.7 Pulse 82 Resp 18 B/P (MAP) 105/71 (82) Pulse Ox 100 95 O2 Delivery Room Air Room Air 10/31/19 00:00 Intake Total 2120 ml Balance 2120 ml Weight (Pounds): 225 Weight (Ounces): 15.0 Weight (Calculated Kilograms): 102.360109 Side: right Device Insertion Site: without hematoma, no signs of inflammation Swelling: mild amount of swelling Drainage: No Bruising: mild bruising Constitutional: AAO x 3, well-developed, well-nourished Respiratory: No accessory muscle use, No respiratory distress; chest expansion is symmetric, chest is bilaterally symmetric, lungs clear to auscultation Cardiovascular: regular rate-rhythm; No JVD; S1 and S2 Gastrointestional: No tender; soft, round, audible bowel sounds Extremities: no lower extremity edema bilateral Neurologic/Psychiatric: grossly intact (moves all extremities) Skin: No rash on exposed areas, No ulcerations on exposed areas Results/Procedures: Labs Laboratory Tests 10/31/19 03:50: White Blood Count 7.2, Red Blood Count 4.79, Hemoglobin 14.8, Hematocrit 43, Mean Corpuscular Volume 90, Mean Corpuscular Hemoglobin 31, Mean Corpuscular Hemoglobin Concent 34, Red Cell Distribution Width 13.7, Platelet Count 248, Mean Platelet Volume 9.9, Sodium Level 137, Potassium Level 4.1, Chloride Level 108H, Carbon Dioxide Level 20L, Anion Gap 9, Blood Urea Nitrogen 12, Creatinine 0.83, Estimat Glomerular Filtration Rate > 60, BUN/Creatinine Ratio 14, Glucose Level 99, Calcium Level 8.7, Corrected Calcium 8.7, Total Bilirubin 0.6, Aspartate Amino Transf (AST/SGOT) 15, Alanine Aminotransferase (ALT/SGPT) 16, Alkaline Phosphatase 83, Total Protein 6.7, Albumin 4.0 Microbiology 10/30/19 MRSA Screen - Final, Complete MRSA not isolated Procedures NAME: YURIY MARTINI [facility] REC#: [id number] PT STATUS: REG [facility] : 1970 PHYSICIAN: ALETHEA ALMAZAN MD, MA, FACP, FACC, FSCAI, CCDS ADMIT DATE: 10/30/19/[facility] Signed Date of Exam:10/30/19 CHEST PA/LAT (2 VIEW) INDICATION: Postcardiac device placement. COMPARISON: April 06, 2019. TECHNIQUE: Two radiographs of the chest dated October 30, 2019. FINDINGS: Interval placement of a single-lead AICD device with the battery pack overlying left chest and the distal tip terminating overlying the right ventricle. The cardiac silhouette is at the upper limits of normal in size. Pulmonary vasculature is upper limits of normal. The lateral radiograph suggests extensive opacities posteriorly, though these were not definitively visualized on the frontal radiograph. No significant pleural effusion. No pneumothorax. No acute osseous abnormality. IMPRESSION: Interval placement of an AICD/pacer without evidence of a pneumothorax. Slight prominence of the cardiac silhouette and pulmonary vasculature, likely accentuated by low lung volumes. Extensive opacities posteriorly on the lateral radiograph only. This is favored related to superposition of shadows, though dependent atelectasis or additional infiltrate would be additional considerations. Recommend radiographic follow-up with frontal and lateral radiographs within one week. Dictated by: Dictated on workstation # [id number] Dict: 10/30/19 1333 Trans: 10/30/19 1623 [facility] [id number] Interpreted by: ROJAS ZAVALETA MD Electronically signed by: ROJAS ZAVALETA MD 10/30/19 1623 A/P: Assessment: S/P Single chamber defibrillator implantation on 10-30-2019 ICM CAD. H/o [place] in late Jan 2019 (see below) Card cath on 02/01/19: Coronary artery disease consisting of complete ostial occlusion of the left anterior descending artery to which successful percutaneous coronary intervention was carried out. Following deployment of Alpine Xience 2.75 x 18 mm stent, there is no significant residual stenosis. A large obtuse marginal of the left circumflex shows 80% bifurcation stenosis in its distal portion. Right coronary artery is dominant and has mild disease. Elevated left ventricular end-diastolic pressure. Well preserved global left ventricular systolic function with ejection fraction approximately 55%. Repeat intervention on 02-07-[address] Almaraz: balloon angioplasty to the ostium and proximal LAD with slow flow in the LAD with reestablishment of flow and good results. Mild disease in the circumflex and right coronary artery Dilated left ventricle with anterior wall hypokinesia to akinesia, estimated ejection fraction 30% Ischemic cardiomyopathy. Echo on 02/04/19: LVEF 40-45%, anteroseptal hypokinesis, mild conc LVH, RVSP 20 mmHg. LVEF 30% on cardiac cath of 02-07-19. Most recent echo of May 25, 2019 showed LVEF 30-35% Hyperlipidemia, not taking any medication Tobaccoism, educated on smoking cessation Continued methamphetamine use - cessation advised Continued marijuana use - cessation advised H/O noncompliance with medications Plan: Infiltrates seen on CXR - consult medical services ([facility] established pt) Likely discharge home later today Ceftin 500mg BID x 5 days Again advised compliance with all medications and instructions to which he verbalizes understanding Again advised complete cessation of methamphetamines and marijuana; discussed out pt addiction tx for which he wishes to f/u with his PCP Discussed the deleterious effects of continued meth and marijuana usage to which he verbalizes understanding Discussed activity restrictions and device site care to which he verbalizes understanding F/U on Tuesday for site check F/U next week for an appt and CXR to be done day prior to appt MARGARITO IBANEZ October 31, 2019 08:11
[2019-10-31] MEDS ORDERED: CEFU500T63 PO (08:29)
[2019-10-31] MEDS: meTOprolol TARTRATE 50 MG (LOPRESSOR) TAB PO SCH (08:39)
[2019-10-31 08:49] VITALS: BP 105/71
[2019-10-31] MEDS ORDERED: lisINopril 5 MG (PRINIVIL) TABLET PO SCH (09:00)
[2019-10-31] MEDS ORDERED: ASPIRIN E.C. 81 MG (ECOTRIN) TAB PO SCH (09:00)
--- NOTE | 2019-10-31 09:06 | Consultation - Hospitalist ---
HPI History of Present Illness: HPI/Chief Complaint CC: Medical management following pacemaker placement with methamphetamines on drug screen HPI: This is a 49yoWM who had a pacemaker placement uncomplicated by Dr. Luna who I have been consulted to talk about methamphetamines in his urine drug screen. He does report that he does use methamphetamines that he does intend to stop, and intends to stop smoking as well. I recommended close follow up with [facility] in order ot help him do that. At this current time pt is stable, I did review all of his labs and there is no acute issue to prevent DC as planned by Dr. Luna. Source: patient Date Seen 10/31/19 Attending Physician Peter Luna MD Facp Fac [facility] Center/[facility] Referring Physician Date of Admission Home Medications & Allergies Home Medications Reviewed patient Home Medication Reconciliation performed by pharmacy medication reconciliations page technician and/or nursing. Patients Allergies have been reviewed. Allergies Allergies Coded Allergies No Known Drug Allergies ([id number]) Past Lluqcpf-Efljmz-Cguawy Hx Past Med/Social Hx: Reviewed Nursing Past Med/Soc Hx, Reviewed and Corrections made Patient Social History Marrital Status: single Employed/Student: unemployed Alcohol Use: Denies Use Recreational Drug Use: Yes Drug of Choice: METH, THC- PAST Smoking Status: Current Everyday Smoker Type Used: Cigarettes 2nd Hand Smoke Exposure: Yes Recent Foreign Travel: No Contact w/other who traveled: No Recent Hopitalizations: No Immunizations Up To Date Tetanus Booster (TDap): Unknown Seasonal Allergies Seasonal Allergies: No Past Medical History Surgeries: Orthopedic Cardiac: Cardiomyopathy, Coronary Artery Disease History of Blood Disorders: No Family History Diabetes mellitus 19 MOTHER, Onset:Unknown Myocardial infarction 19 MOTHER Heart Disease, Diabetes Review of Systems Constitutional: see HPI Physical Exam Physical Exam Vital Signs Vital Signs - First Documented 10/30/19 08:17 Temp 36.8 Pulse 102 Resp 18 B/P (MAP) 128/95 (106) Pulse Ox 99 O2 Delivery Room Air Capillary Refill : Height, Weight, BMI Height: 6'2.00" Weight: 225lbs. 15.0oz. 102.953187zh; 30.88 BMI Method:Stated General Appearance: No Apparent Distress, WD/WN, Chronically ill Eyes: Bilateral Eye Normal Inspection, Bilateral Eye PERRL HEENT: PERRL/EOMI, Normal ENT Inspection, Pharynx Normal Neck: Full Range of Motion, Normal Inspection, Non Tender, Supple, Carotid Bruit Respiratory: Chest Non Tender, Lungs Clear, Normal Breath Sounds, No Accessory Muscle Use, No Respiratory Distress Cardiovascular: Regular Rate, Rhythm, No Edema, No Gallop, No JVD, No Murmur, Normal Peripheral Pulses Gastrointestinal: Normal Bowel Sounds, No Organomegaly, No Pulsatile Mass, Non Tender, Soft Back: Normal Inspection, No CVA Tenderness, No Vertebral Tenderness Extremity: Normal Capillary Refill, Normal Inspection, Normal Range of Motion, Non Tender, No Calf Tenderness, No Pedal Edema Neurologic/Psychiatric: Alert, Oriented x3, No Motor/Sensory Deficits, Normal Mood/Affect Skin: Normal Color, Warm/Dry Lymphatic: No Adenopathy Results Results/Procedures Labs Laboratory Tests 10/30/19 08:29 10/31/19 03:50 Patient resulted labs reviewed. Assessment/Plan Assessment and Plan Assess & Plan/Chief Complaint Assessment: s/p pacemaker placement Meth use Smoker Plan: Stop smoking and using meth DC planned from Cards Diagnosis/Problems Diagnosis/Problems (1) S/P ICD (internal cardiac defibrillator) procedure (2) Illicit drug use Status: Acute SOFIA HANKINS DO October 31, 2019 09:06
--- NOTE | 2019-10-31 09:33 | Progress Note - Cardiology ---
Cardiology SOAP Progress Note Subjective: No cp or palp or syncope or shortness of breath or other symptoms Wishes to go home Objective: I&O/Vital Signs 10/30/19 10/31/19 10/31/19 10/31/19 22:17 00:00 01:00 03:38 Temp 36.8 36.8 36.6 Pulse 75 75 82 68 Resp 19 19 16 B/P (MAP) 113/76 (88) 113/76 (88) 112/74 (87) Pulse Ox 97 97 96 O2 Delivery Room Air Room Air Room Air 10/31/19 10/31/19 06:33 08:49 Temp 36.7 Pulse 73 82 Resp 18 B/P (MAP) 105/71 (82) Pulse Ox 95 O2 Delivery Room Air 10/31/19 00:00 Intake Total 2120 ml Balance 2120 ml Weight (Pounds): 225 Weight (Ounces): 15.0 Weight (Calculated Kilograms): 102.941689 Side: right Device Insertion Site: without hematoma, no signs of inflammation Swelling: mild amount of swelling Drainage: No Bruising: mild bruising Constitutional: AAO x 3, well-developed, well-nourished Respiratory: No accessory muscle use, No respiratory distress; chest expansion is symmetric, chest is bilaterally symmetric, lungs clear to auscultation Cardiovascular: regular rate-rhythm; No JVD; S1 and S2 Gastrointestional: No tender; soft, round, audible bowel sounds Extremities: no lower extremity edema bilateral Neurologic/Psychiatric: grossly intact (moves all extremities) Skin: No rash on exposed areas, No ulcerations on exposed areas Results/Procedures: Labs Laboratory Tests 10/31/19 03:50: White Blood Count 7.2, Red Blood Count 4.79, Hemoglobin 14.8, Hematocrit 43, Mean Corpuscular Volume 90, Mean Corpuscular Hemoglobin 31, Mean Corpuscular Hemoglobin Concent 34, Red Cell Distribution Width 13.7, Platelet Count 248, Mean Platelet Volume 9.9, Sodium Level 137, Potassium Level 4.1, Chloride Level 108H, Carbon Dioxide Level 20L, Anion Gap 9, Blood Urea Nitrogen 12, Creatinine 0.83, Estimat Glomerular Filtration Rate > 60, BUN/Creatinine Ratio 14, Glucose Level 99, Calcium Level 8.7, Corrected Calcium 8.7, Total Bilirubin 0.6, Aspartate Amino Transf (AST/SGOT) 15, Alanine Aminotransferase (ALT/SGPT) 16, Alkaline Phosphatase 83, Total Protein 6.7, Albumin 4.0 Microbiology 10/30/19 MRSA Screen - Final, Complete MRSA not isolated A/P: Assessment: S/P Single chamber defibrillator implantation on 10-30-2019. Functioning normally on repeat interrogation today (R wave 4.4, pacing impedance 513 ohms,capture 0.25V @ 0.4 ms) Post-procedure CXR on 10-30-19: no pneumothorax or procedure-related complication; extensive opacities posteriorly on the lateral radiograph only thought by the radiaologist to be due to superposition of shadows, though dependent atelectasis or additional infiltrate could not be excluded ICM CAD. H/o [place] in late Jan 2019 (see below) Card cath on 02/01/19: Coronary artery disease consisting of complete ostial occlusion of the left anterior descending artery to which successful percutaneous coronary intervention was carried out. Following deployment of Alpine Xience 2.75 x 18 mm stent, there is no significant residual stenosis. A large obtuse marginal of the left circumflex shows 80% bifurcation stenosis in its distal portion. Right coronary artery is dominant and has mild disease. Elevated left ventricular end-diastolic pressure. Well preserved global left ventricular systolic function with ejection fraction approximately 55%. Repeat intervention on 02-07-[address] Almaraz: balloon angioplasty to the ostium and proximal LAD with slow flow in the LAD with reestablishment of flow and good results. Mild disease in the circumflex and right coronary artery Dilated left ventricle with anterior wall hypokinesia to akinesia, estimated ejection fraction 30% Ischemic cardiomyopathy. Echo on 02/04/19: LVEF 40-45%, anteroseptal hypokinesis, mild conc LVH, RVSP 20 mmHg. LVEF 30% on cardiac cath of 02-07-19. Most recent echo of May 25, 2019 showed LVEF 30-35% Hyperlipidemia, not taking any medication Tobaccoism, educated on smoking cessation Continued methamphetamine use - cessation advised Continued marijuana use - cessation advised H/O noncompliance with medications Plan: Infiltrates seen on CXR - consult Medical services (established with [facility]) Likely discharge home later today Ceftin 500mg BID x 5 days Again advised compliance with all medications and instructions to which he verbalizes understanding We are concerned about excessive arm motion leading to lead dislodgement (because he does drugs). This was discussed and length and he was advised to avoid drugs and excessive arm motion (luis lifting L arm above head) Again advised complete cessation of methamphetamines and marijuana; discussed out pt addiction tx for which he wishes to f/u with his PCP Discussed the deleterious effects of continued meth and marijuana usage to which he verbalizes understanding Discussed activity restrictions and device site care to which he verbalizes understanding F/U on Tuesday for site check F/U next week for an appt and CXR to be done day prior to appt He understands all of the above and states he will comply ALETHEA ALMAZAN MD FACP FAC CCDS October 31, 2019 09:33
[2019-10-31] MEDS: TICAGRELOR 90 MG TABLET (BRILINTA) PO SCH (10:36)
[2019-10-31 12:01] VITALS: BP 117/75
== END 2019-10-31 12:06 | disposition home or self-care (01) ==
LOC: SDC 06:49 → CSD 11:30 → CATH 10-31 12:06
PROVIDERS: ATTEND Internal Medicine Cardiovascular Disease
DX: I25.5 Ischemic cardiomyopathy (principal); I50.22 Chronic systolic (congestive) heart failure; I25.10 Atherosclerotic heart disease of native coronary artery without angina pectoris; E78.5 Hyperlipidemia, unspecified; F17.210 Nicotine dependence, cigarettes, uncomplicated; F12.90 Cannabis use, unspecified, uncomplicated; F19.90 Other psychoactive substance use, unspecified, uncomplicated; Z79.82 Long term (current) use of aspirin; Z79.899 Other long term (current) drug therapy; Z91.14 Patient's other noncompliance with medication regimen
CPT/HCPCS: 33249; 36415; 71046; 80053; 80061; 80306; 85027; 85610; 85730; 87081; 93005

== ENCOUNTER → 2019-11-08 | Outpatient (CLI) | payer SELFPAY ==
[~2019-11-08] MED LIST changes: +CEFU500T63 PO; +METO50TA15 PO
--- NOTE | 2019-11-08 14:22 | Diagnostic Imaging Report ---
INDICATION: Possible pulmonary infiltrates on prior exam. Correlation is made with prior study from 10/30/2019. Time of exam 1:57 PM Cardiac defibrillator remains in place. Lungs appear to be clear. Pulmonary vascularity is normal. No infiltrate, effusion or pneumothorax is detected. IMPRESSION: No acute cardiopulmonary process is detected. Dictated by: Dictated on workstation # [id number]
== END ==
LOC: RAD 12:53
PROVIDERS: ATTEND Nurse Practitioner Family
DX: R91.8 Other nonspecific abnormal finding of lung field (principal)
CPT/HCPCS: 71045

== ENCOUNTER 2020-10-08 11:00 | Outpatient (RCR) | payer OTHER ==
[~2020-10-08 11:00] MED LIST changes: +ASPI-1238 PO; -ASPI-983 PO; -ENAL2.5T PO; +ENLP2.5T PO; -LISI-556 PO; +LISI-729 PO
[2020-12-07] MEDS ORDERED: SPIR25TA5 PO (20:41)
[2020-12-07] MEDS ORDERED: PRAS10TA10 PO (20:41)
[2020-12-07] MEDS ORDERED: MTP25TSR PO (20:41)
[2020-12-10] MEDS ORDERED: SPIR25TA5 PO (08:01)
[2020-12-10] MEDS ORDERED: FURO80TA83 PO (08:01)
[2020-12-10] MEDS ORDERED: ASPI-999 PO (08:01)
[2020-12-10] MEDS ORDERED: LISI10TA25 PO (08:01)
[2020-12-23] MEDS ORDERED: RT-ALBUINH INH (16:27)
[2020-12-23] MEDS ORDERED: DEXA6TAB PO (16:27)
== END 2021-01-06 ==
LOC: CR 11:00
PROVIDERS: ATTEND Internal Medicine Cardiovascular Disease
DX: Z95.5 Presence of coronary angioplasty implant and graft (principal); Z95.818 Presence of other cardiac implants and grafts

== ENCOUNTER 2020-12-07 20:23 | Inpatient (IN) | payer OTHER ==
[~2020-12-07] VITALS: Ht 185.5 cm; Wt 107.9 kg
[2020-12-07] MEDS ORDERED: MTP25TSR PO (20:41)
[2020-12-07] MEDS ORDERED: SPIR25TA5 PO (20:41)
[2020-12-07] MEDS ORDERED: PRAS10TA10 PO (20:41)
[2020-12-07 20:55] LABS: BASOPHILS # (AUTO) 0.1 10^3/uL (0.0-0.1); BASOPHILS % (AUTO) 1 % (0-10); EOSINOPHILS # (AUTO) 0.1 10^3/uL (0.0-0.3); EOSINOPHILS % (AUTO) 1 % (0-10); HEMATOCRIT 46 % (40-54); HEMOGLOBIN 14.9 g/dL (13.3-17.7); LYMPHOCYTES # (AUTO) 2.3 10^3/uL (1.0-4.0); LYMPHOCYTES % (AUTO) 21 % (12-44); MEAN CORPUSCULAR HEMOGLOBIN 30 pg (25-34); MEAN CORPUSCULAR HGB CONC 32 g/dL (32-36); MEAN CORPUSCULAR VOLUME 92 fL (80-99); MEAN PLATELET VOLUME 9.7 fL (9.0-12.2); MONOCYTES # (AUTO) 0.9 10^3/uL (0.0-1.0); MONOCYTES % (AUTO) 8 % (0-12); NEUTROPHILS # (AUTO) 7.5 10^3/uL (1.8-7.8); NEUTROPHILS % (AUTO) 69 % (42-75); PLATELET COUNT 277 10^3/uL (130-400); WHITE BLOOD COUNT 10.8 10^3/uL (4.3-11.0)
[2020-12-07] MEDS ORDERED: ALPRAZolam 0.5 MG (XANAX) TAB PO PRN (21:00)
--- NOTE | 2020-12-07 21:02 | ED Respiratory ---
General Chief Complaint: Respiratory Problems Stated Complaint: RAN OUT OF RX SPIRONOLACT/SOB Nursing Triage Note: C/O BEING OUT OF MEDICATIONS X3 DAYS. REPORTS MEDICATIONS OBTAINED 12/06/20 BUT C/O SOA, LEG NUMBNESS TONIGHT. Source: patient Exam Limitations: no limitations History of Present Illness Date Seen by Provider: Dec 07, 2020 Time Seen by Provider: 20:59 Initial Comments To ER with reports of shortness of breath. He has been short of breath all day today. He recently ran out of his Aldactone but filled it yesterday and has been taking it. He is also on metoprolol 25 mg daily and Effient. He denies chest pain at any time today but he does have shortness of breath. No fevers no cough he has an extensive cardiac history which includes ischemic cardiomyopathy with an ejection fraction of 40 to 45% on most recent echocardiogram. During my conversation with him he becomes tearful and starts crying. Upon further discussion he states that he is currently homeless, sleeping and friends cars and has relapsed on his methamphetamine use. Timing/Duration: this morning Severity: moderate Associated Symptoms: No chest pain/soreness, No cough, No fever/chills; shortness of breath Allergies and Home Medications Allergies Coded Allergies: No Known Drug Allergies (Unverified , 05/29/11) Patient Home Medication List Home Medication List Reviewed: Yes Review of Systems Review of Systems Constitutional: see HPI EENTM: see HPI Respiratory: see HPI, short of breath Cardiovascular: no symptoms reported Genitourinary: no symptoms reported Musculoskeletal: no symptoms reported Skin: no symptoms reported Psychiatric/Neurological: No Symptoms Reported Hematologic/Lymphatic: No Symptoms Reported Past Uukxkmc-Idsorw-Jolatb Hx Patient Social History Alcohol Use: Denies Use Drug of Choice: METH, CANNIBUS Smoking Status: Current Everyday Smoker Type Used: Cigarettes 2nd Hand Smoke Exposure: Yes Recent Infectious Disease Expo: No Recent Hopitalizations: No Immunizations Up To Date Tetanus Booster (TDap): Unknown Seasonal Allergies Seasonal Allergies: No Past Medical History Surgeries: Yes (LEFT SHOULDER BICEPS TENDON, HEART STENTS 02/01/19) Orthopedic Respiratory: No Cardiac: Yes (heart failure) Cardiomyopathy, Coronary Artery Disease, Valvular Heart Disease Neurological: No Genitourinary: No Gastrointestinal: No Musculoskeletal: Yes (LEFT SHOULDER SURGERY) Endocrine: No HEENT: No Cancer: No Psychosocial: No Integumentary: No Blood Disorders: No Family Medical History Diabetes mellitus 19 MOTHER, Onset:Unknown Myocardial infarction 19 MOTHER Heart Disease, Diabetes Physical Exam Vital Signs - First Documented 12/07/20 20:28 Temp 36.5 Pulse 107 Resp 24 B/P (MAP) 101/63 (76) Pulse Ox 100 O2 Delivery Room Air Capillary Refill : Less Than 3 Seconds Height: 6'2.00" Weight: 225lbs. 15.0oz. 102.838061dy; 29.00 BMI Method:Stated General Appearance: WD/WN, mild distress, other (Tearful but not in florid respiratory failure. He is tachypneic and stops during conversation to catch his breath. Respiratory rate of about 30. I will put him on BiPAP for symptomatic improvement and he is currently receiving 80 mg of Lasix IV.) Eyes: Bilateral Eye Normal Inspection, Bilateral Eye PERRL, Bilateral Eye EOMI Neck: non-tender, full range of motion Respiratory: no respiratory distress, no accessory muscle use Gastrointestinal: normal bowel sounds, soft Extremities: normal range of motion, non-tender Neurologic/Psychiatric: alert, normal mood/affect, oriented x 3 Skin: normal color, warm/dry Progress/Results/Core Measures Suspected Sepsis Recent Fever Within 48 Hours: No Infection Criteria Present: None New/Unexplained Altered Menta: No Sepsis Screen: No Definite Risk SIRS Temperature: Pulse: 107 Respiratory Rate: 24 Laboratory Tests 12/07/20 20:45: White Blood Count 10.8 Blood Pressure 101 /63 Mean: 76 Laboratory Tests 12/07/20 20:45: Creatinine 1.35H, Platelet Count 277 Results/Orders Lab Results Laboratory Tests Test 12/07/20 20:45 12/07/20 21:28 Range/Units White Blood Count 10.8 4.3-11.0 10^3/uL Red Blood Count 4.99 4.30-5.52 10^6/uL Hemoglobin 14.9 13.3-17.7 g/dL Hematocrit 46 40-54 % Mean Corpuscular Volume 92 80-99 fL Mean Corpuscular Hemoglobin 30 25-34 pg Mean Corpuscular Hemoglobin Concent 32 32-36 g/dL Red Cell Distribution Width 14.6 H 10.0-14.5 % Platelet Count 277 130-400 10^3/uL Mean Platelet Volume 9.7 9.0-12.2 fL Immature Granulocyte % (Auto) 0 % Neutrophils (%) (Auto) 69 42-75 % Lymphocytes (%) (Auto) 21 12-44 % Monocytes (%) (Auto) 8 0-12 % Eosinophils (%) (Auto) 1 0-10 % Basophils (%) (Auto) 1 0-10 % Neutrophils # (Auto) 7.5 1.8-7.8 10^3/uL Lymphocytes # (Auto) 2.3 1.0-4.0 10^3/uL Monocytes # (Auto) 0.9 0.0-1.0 10^3/uL Eosinophils # (Auto) 0.1 0.0-0.3 10^3/uL Basophils # (Auto) 0.1 0.0-0.1 10^3/uL Immature Granulocyte # (Auto) 0.0 0.0-0.1 10^3/uL Sodium Level 137 135-145 MMOL/L Potassium Level 5.5 H 3.6-5.0 MMOL/L Chloride Level 103 98-107 MMOL/L Carbon Dioxide Level 21 21-32 MMOL/L Anion Gap 13 5-14 MMOL/L Blood Urea Nitrogen 23 H 7-18 MG/DL Creatinine 1.35 H 0.60-1.30 MG/DL Estimat Glomerular Filtration Rate 56 BUN/Creatinine Ratio 17 Glucose Level 124 H 70-105 MG/DL Calcium Level 9.5 8.5-10.1 MG/DL B-Type Natriuretic Peptide 1034.8 H <100.0 PG/ML My Orders Orders - ANN STRICKLAND APRN Cbc With Automated Diff (12/07/20 20:32) BNP (12/07/20 20:32) Chest 1 View, Ap/Pa Only (12/07/20 20:32) Basic Metabolic Panel (12/07/20 20:32) Alprazolam Tablet (Xanax Tablet) (12/07/20 21:00) Ekg Tracing (12/07/20 21:15) Furosemide Injection (Lasix Injection) (12/07/20 21:15) Ed Iv/Invasive Line Start (12/07/20 21:15) Covid 19 Inhouse Test (12/07/20 21:23) Troponin I (12/07/20 21:23) Medications Given in ED Current Medications Medications Dose Ordered Sig/Maggie Route Start Time Stop Time Status Last Admin Dose Admin Alprazolam 1 mg ONCE PRN PO 12/07/20 21:00 12/07/20 21:04 1 MG Furosemide 80 mg ONCE ONCE IVP 12/07/20 21:15 12/07/20 21:16 DC 12/07/20 21:20 80 MG Vital Signs/I&O 12/07/20 20:28 Temp 36.5 Pulse 107 Resp 24 B/P (MAP) 101/63 (76) Pulse Ox 100 O2 Delivery Room Air Capillary Refill : Less Than 3 Seconds Blood Pressure Mean: 76 Diagnostic Imaging Diagonstic Imaging: Xray Plain Films/CT/US/NM/MRI: chest Comments NAME: YURIY MARTINI [facility] REC#: [id number] PT STATUS: REG ER : 1970 PHYSICIAN: ANN STRICKLAND APRN ADMIT DATE: 12/07/20/ER Draft Date of Exam:12/07/20 CHEST 1 VIEW, AP/PA ONLY INDICATION: Short of air. EXAMINATION: Chest, 12/07/2020. COMPARISON: 09/18/2020. FINDINGS: Left-sided pacemaker stable. Cardiomegaly and pulmonary vascular congestion noted. There are findings of mild edema. No infiltrate, effusion or pneumothorax. IMPRESSION: Pulmonary edema. Dictated on workstation # [id number] Dict: 12/07/202103 Trans: 12/07/202106 [facility] [id number] Interpreted by: AURELIO VERMA MD Electronically signed by: Departure Communication (Admissions) EKG shows sinus tachycardia rate of [address] segment changes right bundle branch block. He does have dyspnea respiratory rate of about 30, stops during conversation to catch his breath. I will put him on BiPAP and see how he tolerates that. Hemodynamically stable with a pressure of 112/85, heart rate 105 sinus. Impression Primary Impression: Acute on chronic heart failure Disposition: ADMITTED INPATIENT Condition: Stable Admissions Decision to Admit Reason: Admit from ER (General) Decision to Admit/Date: Dec 07, 2020 Time/Decision to Admit Time: 21:26 Departure-Patient Inst. [facility]: [facility] [place]) Primary Care Physician HECTOR MEMBRENO MD (Family) Primary Care Physician ANN STRICKLAND APRN Dec 07, 2020 21:02
[2020-12-07 21:04] LABS: POTASSIUM 5.5 MMOL/L (3.6-5.0)
[2020-12-07 21:05] LABS: CALCIUM 9.5 MG/DL (8.5-10.1)
--- NOTE | 2020-12-07 21:08 | Diagnostic Imaging Report ---
INDICATION: Short of air. EXAMINATION: Chest, 12/07/2020. COMPARISON: 09/18/2020. FINDINGS: Left-sided pacemaker stable. Cardiomegaly and pulmonary vascular congestion noted. There are findings of mild edema. No infiltrate, effusion or pneumothorax. IMPRESSION: Pulmonary edema. Dictated by: Dictated on workstation # [id number]
[2020-12-07 21:09] LABS: CREATININE SERUM 1.35 MG/DL (0.60-1.30)
[2020-12-07] MEDS ORDERED: FUROSEMIDE 40 MG/4 ML INJ (LASIX) IVP ONE (21:15)
[2020-12-07] MEDS ORDERED: CATHETER FLUSH 10 ML SYR IV PRN (22:30)
[2020-12-08 03:51] LABS: BASOPHILS # (AUTO) 0.1 10^3/uL (0.0-0.1); BASOPHILS % (AUTO) 1 % (0-10); EOSINOPHILS # (AUTO) 0.1 10^3/uL (0.0-0.3); EOSINOPHILS % (AUTO) 1 % (0-10); HEMATOCRIT 43 % (40-54); HEMOGLOBIN 14.5 g/dL (13.3-17.7); LYMPHOCYTES % (AUTO) 23 % (12-44); MEAN CORPUSCULAR HEMOGLOBIN 31 pg (25-34); MEAN CORPUSCULAR HGB CONC 34 g/dL (32-36); MEAN CORPUSCULAR VOLUME 91 fL (80-99); MONOCYTES # (AUTO) 0.9 10^3/uL (0.0-1.0); MONOCYTES % (AUTO) 10 % (0-12); NEUTROPHILS # (AUTO) 5.9 10^3/uL (1.8-7.8); NEUTROPHILS % (AUTO) 66 % (42-75); PLATELET COUNT 250 10^3/uL (130-400); WHITE BLOOD COUNT 8.9 10^3/uL (4.3-11.0)
[2020-12-08 04:01] LABS: CHLORIDE 103 MMOL/L (98-107); POTASSIUM 4.1 MMOL/L (3.6-5.0); SODIUM 140 MMOL/L (135-145)
[2020-12-08 04:02] LABS: CALCIUM 9.4 MG/DL (8.5-10.1); GLUCOSE 93 MG/DL (70-105)
[2020-12-08 04:04] LABS: CARBON DIOXIDE 21 MMOL/L (21-32)
[2020-12-08 04:06] LABS: CREATININE SERUM 1.17 MG/DL (0.60-1.30); GFR ESTIMATED > 60; PHOSPHORUS 4.1 MG/DL (2.3-4.7)
[2020-12-08 04:07] LABS: BUN/CREATININE RATIO 21
[2020-12-08 04:08] LABS: MAGNESIUM 1.7 MG/DL (1.6-2.4)
[2020-12-08] MEDS: POTASSIUM CL 10MEQ/50ML IVPB 50 ML IV SCH (04:09)
[2020-12-08] MEDS: KCL 20 MEQ TAB (K-DUR) PO SCH (04:10)
[2020-12-08] MEDS: MAGNESIUM 1 GM/100 ML IVPB 100 ML IV SCH (04:10)
[2020-12-08] MEDS: CATHETER FLUSH 10 ML SYR IV SCH ×3 (06:19→22:00)
--- NOTE | 2020-12-08 06:40 | History & Physical-Hospitalist ---
History of Present Illness HPI/Chief Complaint CC: Shortness of breath HPI: This is a 50 year-old white male, history of congestive heart failure and CAD who presented to the ER with shortness of breath found to have acute exacerbation congestive heart failure. Echocardiogram ordered and Aldactone Lisinopril ordered and cath report from [facility] will be obtained and reviewed. Pacemaker was interrogated and cardiology is appreciated. Source: patient Exam Limitations: no limitations Date Seen 12/08/20 Time Seen by a Provider: 10:00 Attending Physician Jeyson Masterson MD [place] [place] Referring Physician Date of Admission Dec 07, 2020 at 21:33 Home Medications & Allergies Home Medications Reviewed patient Home Medication Reconciliation performed by pharmacy medication reconciliations emergency medical technician/driver and/or nursing. Patients Allergies have been reviewed. Allergies Allergies Coded Allergies No Known Drug Allergies (Ildiwtfgff13/17/11) Past Rtjschz-Hdovik-Bsxvor Hx Patient Social History Marrital Status: single Employed/Student: unemployed Tobacco Use?: Yes Tobacco type used: Cigarettes Smoking Status: Current Everyday Smoker Substance use?: Yes Substance type: Amphetamines, Marijuana Substance frequency: Daily Alcohol Use?: No Pt feels they are or have been: No Seasonal Allergies Seasonal Allergies: No Current Status Advance Directives: No Communicates: Verbally Primary Language: [place] Preferred Spoken Language: [place] Is interpretation needed?: No Past Medical History Surgeries: Orthopedic Cardiomyopathy, Coronary Artery Disease, Valvular Heart Disease Blood Disorders: No Family Medical History Diabetes mellitus 19 MOTHER, Onset:Unknown Myocardial infarction 19 MOTHER Heart Disease, Diabetes Review of Systems Constitutional: see HPI Respiratory: dyspnea on exertion, short of breath Physical Exam Physical Exam Vital Signs Vital Signs - First Documented 12/07/20 12/07/20 20:28 21:46 Temp 36.5 Pulse 107 Resp 24 B/P (MAP) 101/63 (76) Pulse Ox 100 O2 Delivery Room Air O2 Flow Rate 40.00 Capillary Refill : Less Than 3 Seconds Height, Weight, BMI Height: 6'2.00" Weight: 225lbs. 15.0oz. 102.313866lb; 31.35 BMI Method:Stated General Appearance: No Apparent Distress, Chronically ill Eyes: Right Eye Normal Inspection, Right Eye PERRL HEENT: PERRL/EOMI, Normal ENT Inspection, Pharynx Normal, Moist Mucous Membranes Neck: Full Range of Motion, Normal Inspection, Non Tender Respiratory: Chest Non Tender, Lungs Clear, Normal Breath Sounds, No Accessory Muscle Use, No Respiratory Distress Cardiovascular: Regular Rate, Rhythm, No Edema, No Gallop, No JVD, No Murmur, Normal Peripheral Pulses Gastrointestinal: Normal Bowel Sounds, No Organomegaly, No Pulsatile Mass, Non Tender, Soft Back: Normal Inspection, No CVA Tenderness, No Vertebral Tenderness Extremity: Normal Capillary Refill, Normal Inspection, Normal Range of Motion, Non Tender, No Calf Tenderness, No Pedal Edema Neurologic/Psychiatric: Alert, Oriented x3, No Motor/Sensory Deficits, Normal Mood/Affect Skin: Normal Color, Warm/Dry Lymphatic: No Adenopathy Results Results/Procedures Labs Laboratory Tests 12/07/20 20:45 12/08/20 03:38 12/09/20 03:55 Patient resulted labs reviewed. Assessment/Plan Admission Diagnosis Assessment: Acute exacerbation of congestive heart failure Cardiomyopathy Plan: Cardiology consultation appreciated Admission Status: Inpatient Order (span 2 midnights) Reason for Inpatient Admission: Acute exacerbation CHF SOFIA HANKINS DO Dec 08, 2020 06:40
[2020-12-08] MEDS: PRASUGREL 10 MG (EFFIENT) TABLET PO SCH (07:58)
[2020-12-08] MEDS: ASPIRIN E.C. 81 MG (ECOTRIN) TAB PO SCH (07:59)
[2020-12-08] MEDS: FUROSEMIDE 40 MG/4 ML INJ (LASIX) IV SCH ×2 (07:59→20:01)
--- NOTE | 2020-12-08 08:22 | Consultation-Cardiology ---
HPI-Cardiology Cardiology Consultation: Date of Consultation 12/08/20 Time Seen by a Provider: 08:25 Date of Admission 12-07-20 Attending Physician Jeyson Masterson MD Admitting Physician [facility] Consulting Physician Peter Luna MD HPI: Chief Complaint: Acute systolic CHF Mr. Renteria is a 50 yr old male admitted to ICU 9 from the ED with c/o increasing SOB. He reports he has become homeless over the last few weeks and has not been able to afford his medications. He reports he has been without medications including Effient for at least 3 days prior to admission. He reports he was seen at [facility] and underwent cardiac cath by Dr. Colvin, but he is unsure of the date or intervention. He reports he thinks his device may have shocked him last week, but he is unsure. No c/o CP, palpitations, syncope or ne ar syncope. Reports he has had some LE swelling. He reports he has continued to use methamphetamines, with last usage 3 days ago. He is tearful at this time. No c/o n/v/d. No c/o fever or chills. Review of Systems-Cardiology Review of Systems Constitutional: No chills, No fever Eyes: No vision change Ears/Nose/Throat: No epistaxis, No recent hearing loss Respiratory: As described under HPI Cardiovascular: As described under HPI Gastrointestinal: No constipation, No diarrhea, No nausea, No vomiting Genitourinary: No dysuria, No hematuria Musculoskeletal: no symptoms reported Skin: No rash on exposed areas, No ulcerations on exposed areas Psychiatric/Neurological: depression; No anxiety, No seizure, No focal weakness, No syncope Hematologic: No bleeding abnormalities SOW-Kbikgz-Ieuvgm Hx Patient Social History Smoking Status: Current Everyday Smoker 2nd Hand Smoke Exposure: Yes Have you traveled recently?: No Alcohol Use?: No Substance type: Amphetamines, Marijuana Pt feels they are or have been: No Tobacco type used: Cigarettes Immunizations Up To Date Tetanus Booster (TDap): Unknown Past Medical History PMH As described under Assessment. Family Medical History Family Medical History: Fam h/o DM II No fam h/o early CAD or SCD Family History: Diabetes mellitus 19 MOTHER, Onset:Unknown Myocardial infarction 19 MOTHER Allergies and Home Medications Allergies Coded Allergies: No Known Drug Allergies (Unverified , 12/17/11) Home Medications Aspirin 81 Mg Tab.chew, 81 MG PO DAILY Prescribed by: MARGARITO IBANEZ on 12/10/20800 Furosemide 80 Mg Tablet, 80 MG PO DAILY Prescribed by: MARGARITO IBANEZ on 12/10/20800 Lisinopril 10 Mg Tablet, 10 MG PO DAILY Prescribed by: MARGARITO IBANEZ on 12/10/20800 Metoprolol Succinate 25 Mg Tab.er.24h, 25 MG PO DAILY, (Reported) Last Action: Reviewed Prasugrel HCl 10 Mg Tablet, 10 MG PO DAILY, (Reported) Last Action: Reviewed Spironolactone 25 Mg Tablet, 25 MG PO DAILY Prescribed by: MARGARITO IBANEZ on 12/10/20800 Physical Exam-Cardiology Physical Exam Vital Signs/I&O 12/10/20 12/10/20 12/10/20 12/10/20 00:04 04:34 08:00 08:00 Temp 36.8 36.7 35.9 Pulse 101 96 98 Resp 18 18 16 B/P (MAP) 106/71 (83) 114/58 (76) 103/69 (80) Pulse Ox 96 97 94 O2 Delivery Room Air Room Air Room Air Room Air 12/10/20 00:00 Intake Total 795 ml Balance 795 ml Capillary Refill : Less Than 3 Seconds Constitutional: AAO x 3, well-developed, well-nourished HEENT: PERRL, hearing is well preserved; No oral hygience is good Neck: No carotid bruit; carotid pulses are 2 + bilaterally Respiratory: No accessory muscle use, No respiratory distress; chest expansion is symmetric, chest is bilaterally symmetric, lungs clear to auscultation Cardiovascular: regular rate-rhythm; No JVD; S1 and S2, systolic murmur Gastrointestinal: No tender; soft, round, audible bowel sounds Extremities: no lower extremity edema bilateral Neurologic/Psychiatric: grossly intact (moves all extremities) Skin: No rash on exposed areas, No ulcerations on exposed areas Data Review Labs Laboratory Tests 12/10/20 05:20: White Blood Count 6.8, Red Blood Count 5.52, Hemoglobin 16.5, Hematocrit 49, Mean Corpuscular Volume 90, Mean Corpuscular Hemoglobin 30, Mean Corpuscular Hemoglobin Concent 33, Red Cell Distribution Width 14.0, Platelet Count 278, Mean Platelet Volume 10.0, Immature Granulocyte % (Auto) 0, Neutrophils (%) (Auto) 59, Lymphocytes (%) (Auto) 25, Monocytes (%) (Auto) 12, Eosinophils (%) (Auto) 3, Basophils (%) (Auto) 1, Neutrophils # (Auto) 4.0, Lymphocytes # (Auto) 1.7, Monocytes # (Auto) 0.8, Eosinophils # (Auto) 0.2, Basophils # (Auto) 0.0, Immature Granulocyte # (Auto) 0.0, Sodium Level 136, Potassium Level 3.8, Chloride Level 101, Carbon Dioxide Level 23, Anion Gap 12, Blood Urea Nitrogen 33H, Creatinine 1.25, Estimat Glomerular Filtration Rate > 60, BUN/Creatinine Ratio 26, Glucose Level 102, Calcium Level 9.7, Corrected Calcium 9.7, Total Bilirubin 0.7, Aspartate Amino Transf (AST/SGOT) 34, Alanine Aminotransferase (ALT/SGPT) 49, Alkaline Phosphatase 85, Total Protein 7.6, Albumin 4.0 Microbiology 12/07/20 MRSA Screen - Final, Complete MRSA not isolated Radiology NAME: YURIY RENTERIA [facility] REC#: [id number] PT STATUS: ADM IN : 1970 PHYSICIAN: ANN STRICKLAND APRN ADMIT DATE: 12/07/20/ICU Signed Date of Exam:12/07/20 CHEST 1 VIEW, AP/PA ONLY INDICATION: Short of air. EXAMINATION: Chest, 12/07/2020. COMPARISON: 09/18/2020. FINDINGS: Left-sided pacemaker stable. Cardiomegaly and pulmonary vascular congestion noted. There are findings of mild edema. No infiltrate, effusion or pneumothorax. IMPRESSION: Pulmonary edema. Dictated by: Dictated on workstation # [id number] Dict: 12/07/202103 Trans: 12/07/202158 [facility] [id number] Interpreted by: AURELIO VERMA MD Electronically signed by: AURELIO VERMA MD 12/07/202158 ECG Impression ECG Comment RBBB A/P-Cardiology Assessment/Admission Diagnosis Acute on chronic systolic CHF S/P Single chamber defibrillator implantation on 10-30-2019. Functioning normally on interrogation of 11-08-19 (R wave 4.4, pacing impedance 513 ohms,capture 0.25V @ 0.4 ms) ICM CAD: - H/o FL in late Jan 2019 (see below) - Card cath on 02/01/19: Coronary artery disease consisting of complete ostial occlusion of the left anterior descending artery to which successful percutaneous coronary intervention was carried out. Following deployment of Alpine Xience 2.75 x 18 mm stent, there is no significant residual stenosis. A large obtuse marginal of the left circumflex shows 80% bifurcation stenosis in its distal portion. Right coronary artery is dominant and has mild disease. Elevated left ventricular end-diastolic pressure. Well preserved global left ventricular systolic function with ejection fraction approximately 55%. - Repeat intervention on 02-07-[address] Almaraz: balloon angioplasty to the ostium and proximal LAD with slow flow in the LAD with reestablishment of flow and good results. Mild disease in the circumflex and right coronary artery Dilated left ventricle with anterior wall hypokinesia to akinesia, estimated ejection fraction 30% Ischemic cardiomyopathy. - Echo on 02/04/19: LVEF 40-45%, anteroseptal hypokinesis, mild conc LVH, RVSP 20 mmHg. LVEF 30% on cardiac cath of 02-07-19. - Most recent echo of May 25, 2019 showed LVEF 30-35% Hyperlipidemia, not taking any medication Tobaccoism, educated on smoking cessation Continued methamphetamine use - cessation advised Continued marijuana use - cessation advised H/O noncompliance with medications and f/u Discussion and Recomendations Acute on chronic systolic CHF - treat with diuretics ICM - start Lisinopril and Aldactone CAD - continue ASA and Effient Interrogate AICD today (reports possible shock) Request records from [facility] - reports recent cardiac cath - does not know the details Continue BB Monitor lab closely and replace electrolytes as indicated Social service consult d/t living situation and inability to afford medication Further recs will be based on his hospital course We would like to thank medical services for this consult MARGARITO IBANEZ Dec 08, 2020 08:22
[2020-12-08] MEDS ORDERED: SPIRONOLACTONE 25 MG (ALDACTONE) TAB PO ONE (08:45)
[2020-12-08] MEDS ORDERED: lisINopril 10 MG (PRINIVIL) TABLET PO ONE (08:45)
--- NOTE | 2020-12-08 12:05 | Tele-ICU Progress Note ---
Subjective Date Seen by a Provider: Dec 08, 2020 Time Seen by a Provider: 12:05 Sepsis Event Evaluation Height, Weight, BMI Height: 6'2.00" Weight: 225lbs. 15.0oz. 102.681355nz; 31.35 BMI Method:Stated Exam Exam Patient acknowledged, consented, and participated in this virtual visit which was conducted using real time audio/video Vital Signs Date Time Temp Pulse Resp B/P (MAP) Pulse Ox O2 Delivery O2 Flow Rate FiO2 12/08/20 11:38 36.4 12/08/20 11:00 95 145/90 (108) 95 Nasal Cannula 2.00 12/08/20 10:00 96 112/72 (85) 96 Nasal Cannula 2.00 12/08/20 09:00 98 120/86 (97) 97 Nasal Cannula 2.00 12/08/20 08:10 99 Nasal Cannula 2.00 12/08/20 08:00 103 115/81 (92) 98 Nasal Cannula 2.00 12/08/20 07:46 36.3 12/08/20 07:00 101 129/95 (106) 93 Nasal Cannula 2.00 12/08/20 07:00 102 12/08/20 06:00 102 125/97 (106) 96 Nasal Cannula 2.00 12/08/20 05:38 36.2 12/08/20 05:00 105 111/76 (84) 87 Nasal Cannula 2.00 12/08/20 04:00 100 Nasal Cannula 2.00 12/08/20 04:00 102 127/96 (103) 74 Nasal Cannula 2.00 12/08/20 03:00 106 101/81 (89) 77 Nasal Cannula 2.00 12/08/20 02:00 101 122/85 (101) 96 Nasal Cannula 2.00 12/08/20 01:00 109 117/80 (93) 87 Nasal Cannula 2.00 12/08/20 01:00 109 12/08/20 00:17 36.4 12/08/20 00:00 107 93/74 (80) 96 Nasal Cannula 2.00 12/07/20 23:59 100 Nasal Cannula 2.00 12/07/20 23:00 105 96/63 (69) 93 Nasal Cannula 2.00 12/07/20 22:45 101 114/82 (93) 97 Nasal Cannula 2.00 12/07/20 22:30 104 93/68 (78) 96 Nasal Cannula 2.00 12/07/20 22:17 106 12/07/20 22:15 36.3 102 18 112/63 (79) 100 Nasal Cannula 2.00 12/07/20 22:00 36.6 108 20 116/79 100 NIV Bilevel 40.00 12/07/20 21:46 108 26 100 40.00 12/07/20 20:28 36.5 107 24 101/63 (76) 100 Room Air I & O 12/08/20 07:00 Intake Total 100 ml Output Total 3050 ml Balance -2950 ml Height & Weight Height: 6'2.00" Weight: 225lbs. 15.0oz. 102.222403up; 31.35 BMI Method:Stated General Appearance: No Apparent Distress Capillary Refill: Less Than 3 Seconds Gastrointestinal: normal bowel sounds, soft Results Lab Laboratory Tests 12/07/20 20:45 12/08/20 03:38 Assessment/Plan Assessment/Plan (Tele-ICU Physician , Progress Note ) Available chart/ vitals / labs / Images reviewed Video assessment done using teleICU camera, rest of exam as per RN Discussed with RN Events overnight : none Afebrile hemodynamically stable, no pressors, I/O = 2400 out As per RN exam : 1 l nc , aao , vo complains Consultants: cards A/P CHF/ ICM, ECHO 2018 showed LVEF 30-35%, s/p AICD - responed to diuresis - meds as per cardiology - weaning off o2 -Interrogate AICD today CAD -as per cards J LUIS - improved Tobacco abuse methamphetamine use marijuana use H/O noncompliance with medications and f/u as per chart Lines : peripf Love: OG: Nutrition: po Analgesia: na . met abuse Anxiety/ delirium - on xanax VTE Prophylaxis: ambulate, scd Stress Ulcer Prophylaxis: na Glycemic Control: + Plans in collaboration with bedside consultants and IM MDs. Discussed with RN to reach out if any questions or concerns A total of 20 minutes of critical care time was devoted to this patient today, required to treat and/or prevent further deterioration of critical care condition ( as above ) . TREVIN NDIAYE MD Dec 08, 2020 12:05
--- NOTE | 2020-12-08 12:56 | Consultation-Cardiology ---
HPI-Cardiology Cardiology Consultation: Date of Consultation 12/08/20 Time Seen by a Provider: 09:15 Date of Admission Attending Physician Jeyson Masterson MD Admitting Physician [facility] Consulting Physician ALETHEA ALMAZAN MD, MA, FACP, FACC, [facility], CCDS HPI: Chief Complaint: Reason for Cardiology consultation: Acute systolic CHF HPI Mr. Renteria is a 50 yr old male admitted to ICU 9 from the ED with c/o increasing SOB. He reports he has become homeless over the last few weeks and has not been able to afford his medications. He reports he has been without medications including Effient for at least 3 days prior to admission. He reports he was seen at [facility] and underwent cardiac cath by Dr. Colvin, but he is unsure of the date or intervention. He reports he thinks his device may have shocked him last week, but he is unsure. No c/o CP, palpitations, syncope or near syncope. Reports he has had some LE swelling. He reports he has continued to use methamphetamines, with last usage 3 days ago. He is tearful at this time. No c/o n/v/d. No c/o fever or chills. Review of Systems-Cardiology Review of Systems Constitutional: No chills, No fever Eyes: No vision change Ears/Nose/Throat: No epistaxis, No recent hearing loss Respiratory: As described under HPI Cardiovascular: As described under HPI Gastrointestinal: No constipation, No diarrhea, No nausea, No vomiting Genitourinary: No dysuria, No hematuria Musculoskeletal: no symptoms reported Skin: No rash on exposed areas, No ulcerations on exposed areas Psychiatric/Neurological: depression; No anxiety, No seizure, No focal weakness, No syncope Hematologic: No bleeding abnormalities [id number] Hx Patient Social History Smoking Status: Current Everyday Smoker 2nd Hand Smoke Exposure: Yes Have you traveled recently?: No Alcohol Use?: No Substance type: Amphetamines, Marijuana Pt feels they are or have been: No Tobacco type used: Cigarettes Immunizations Up To Date Tetanus Booster (TDap): Unknown Past Medical History PMH As described under Assessment. Family Medical History Family Medical History: Fam h/o DM II No fam h/o early CAD or SCD Family History: Diabetes mellitus 19 MOTHER, Onset:Unknown Myocardial infarction 19 MOTHER Allergies and Home Medications Allergies Coded Allergies: No Known Drug Allergies (Unverified , 12/17/11) Home Medications Metoprolol Succinate 25 Mg Tab.er.24h, 25 MG PO DAILY, (Reported) Last Action: Reviewed Prasugrel HCl 10 Mg Tablet, 10 MG PO DAILY, (Reported) Last Action: Reviewed Spironolactone 25 Mg Tablet, 25 MG PO DAILY, (Reported) Last Action: Reviewed Patient Home Medication List Home Medication List Reviewed: Yes Physical Exam-Cardiology Physical Exam Vital Signs/I&O 12/08/20 12/08/20 12/08/20 12/08/20 01:00 01:00 02:00 03:00 Pulse 109 109 101 106 B/P (MAP) 117/80 (93) 122/85 (101) 101/81 (89) Pulse Ox 87 96 77 O2 Delivery Nasal Cannula Nasal Cannula Nasal Cannula O2 Flow Rate 2.00 2.00 2.00 12/08/20 12/08/20 12/08/20 12/08/20 04:00 04:00 05:00 05:38 Temp 36.2 Pulse 102 105 B/P (MAP) 127/96 (103) 111/76 (84) Pulse Ox 74 100 87 O2 Delivery Nasal Cannula Nasal Cannula Nasal Cannula O2 Flow Rate 2.00 2.00 2.00 12/08/20 12/08/20 12/08/20 12/08/20 06:00 07:00 07:00 07:46 Temp 36.3 Pulse 102 102 101 B/P (MAP) 125/97 (106) 129/95 (106) Pulse Ox 96 93 O2 Delivery Nasal Cannula Nasal Cannula O2 Flow Rate 2.00 2.00 12/08/20 12/08/20 12/08/20 12/08/20 08:00 08:10 09:00 10:00 Pulse 103 98 96 B/P (MAP) 115/81 (92) 120/86 (97) 112/72 (85) Pulse Ox 98 99 97 96 O2 Delivery Nasal Cannula Nasal Cannula Nasal Cannula Nasal Cannula O2 Flow Rate 2.00 2.00 2.00 2.00 12/08/20 12/08/20 12/08/20 12/08/20 11:00 11:38 12:00 12:15 Temp 36.4 Pulse 95 100 B/P (MAP) 145/90 (108) 100/73 (82) Pulse Ox 95 95 O2 Delivery Nasal Cannula Nasal Cannula NIV Bilevel O2 Flow Rate 2.00 2.00 Capillary Refill : Less Than 3 Seconds Constitutional: AAO x 3, well-developed, well-nourished HEENT: PERRL, hearing is well preserved; No oral hygience is good Neck: No carotid bruit; carotid pulses are 2 + bilaterally Respiratory: No accessory muscle use, No respiratory distress; chest expansion is symmetric, chest is bilaterally symmetric, lungs clear to auscultation Cardiovascular: regular rate-rhythm; No JVD; S1 and S2, systolic murmur Gastrointestinal: No tender; soft, round, audible bowel sounds Extremities: no lower extremity edema bilateral Neurologic/Psychiatric: grossly intact (moves all extremities) Skin: No rash on exposed areas, No ulcerations on exposed areas Data Review Labs Laboratory Tests 12/07/20 20:45: White Blood Count 10.8, Red Blood Count 4.99, Hemoglobin 14.9, Hematocrit 46, Mean Corpuscular Volume 92, Mean Corpuscular Hemoglobin 30, Mean Corpuscular Hemoglobin Concent 32, Red Cell Distribution Width 14.6H, Platelet Count 277, Mean Platelet Volume 9.7, Immature Granulocyte % (Auto) 0, Neutrophils (%) (Auto) 69, Lymphocytes (%) (Auto) 21, Monocytes (%) (Auto) 8, Eosinophils (%) (Auto) 1, Basophils (%) (Auto) 1, Neutrophils # (Auto) 7.5, Lymphocytes # (Auto) 2.3, Monocytes # (Auto) 0.9, Eosinophils # (Auto) 0.1, Basophils # (Auto) 0.1, Immature Granulocyte # (Auto) 0.0, Sodium Level 137, Potassium Level 5.5H, Chloride Level 103, Carbon Dioxide Level 21, Anion Gap 13, Blood Urea Nitrogen 23H, Creatinine 1.35H, Estimat Glomerular Filtration Rate 56, BUN/Creatinine Ratio 17, Glucose Level 124H, Calcium Level 9.5, Troponin I < 0.028, B-Type Natriuretic Peptide 1034.8H 12/07/20 21:28: SARS-CoV-2 RNA (RT-PCR) Not Detected 12/08/20 03:38: White Blood Count 8.9, Red Blood Count 4.73, Hemoglobin 14.5, Hematocrit 43, Mean Corpuscular Volume 91, Mean Corpuscular Hemoglobin 31, Mean Corpuscular Hemoglobin Concent 34, Red Cell Distribution Width 14.4, Platelet Count 250, Mean Platelet Volume 10.0, Immature Granulocyte % (Auto) 0, Neutrophils (%) (Auto) 66, Lymphocytes (%) (Auto) 23, Monocytes (%) (Auto) 10, Eosinophils (%) (Auto) 1, Basophils (%) (Auto) 1, Neutrophils # (Auto) 5.9, Lymphocytes # (Auto) 2.0, Monocytes # (Auto) 0.9, Eosinophils # (Auto) 0.1, Basophils # (Auto) 0.1, Immature Granulocyte # (Auto) 0.0, Sodium Level 140, Potassium Level 4.1, Chlori de Level 103, Carbon Dioxide Level 21, Anion Gap 16H, Blood Urea Nitrogen 24H, Creatinine 1.17, Estimat Glomerular Filtration Rate > 60, BUN/Creatinine Ratio 21, Glucose Level 93, Calcium Level 9.4, Phosphorus Level 4.1, Magnesium Level 1.7 A/P-Cardiology Assessment/Admission Diagnosis Acute on chronic systolic CHF S/P Single chamber defibrillator implantation on 10-30-2019. Functioning normally on interrogation of 11-08-19 (R wave 4.4, pacing impedance 513 ohms,capture 0.25V @ 0.4 ms) ICM CAD: - H/o [place] in late Jan 2019 (see below) - Card cath on 02/01/19: Coronary artery disease consisting of complete ostial occlusion of the left anterior descending artery to which successful perc utaneous coronary intervention was carried out. Following deployment of Alpine Xience 2.75 x 18 mm stent, there is no significant residual stenosis. A large obtuse marginal of the left circumflex shows 80% bifurcation stenosis in its distal portion. Right coronary artery is dominant and has mild disease. Elevated left ventricular end-diastolic pressure. Well preserved global left ventricular systolic function with ejection fraction approximately 55%. - Repeat intervention on 02-07-[address] Almaraz: balloon angioplasty to the ostium and proximal LAD with slow flow in the LAD with reestablishment of flow and good results. Mild disease in the circumflex and right coronary artery Dilated left ventricle with anterior wall hypokinesia to akinesia, estimated ejection fraction 30% Ischemic cardiomyopathy. - Echo on 02/04/19: LVEF 40-45%, anteroseptal hypokinesis, mild conc LVH, RVSP 20 mmHg. LVEF 30% on cardiac cath of 02-07-19. - Most recent echo of May 25, 2019 showed LVEF 30-35% Hyperlipidemia, not taking any medication Tobaccoism, educated on smoking cessation Continued methamphetamine use - cessation advised Continued marijuana use - cessation advised H/O noncompliance with medications and f/u Discussion and Recomendations Acute on chronic systolic CHF - treat with diuretics ICM - start Lisinopril and Aldactone CAD - continue ASA and Effient Interrogate AICD today (reports possible shock) Request records from [facility] - reports recent cardiac cath - does not know the details Continue BB Monitor lab closely and replace electrolytes as indicated Social service consult d/t living situation and inability to afford medication Further recs will be based on his hospital course We would like to thank Medical services for this consult ALETHEA ALMAZAN MD FACP FAC CCDS Dec 08, 2020 12:56
[2020-12-09 04:20] LABS: BASOPHILS % (AUTO) 0 % (0-10); EOSINOPHILS # (AUTO) 0.2 10^3/uL (0.0-0.3); EOSINOPHILS % (AUTO) 2 % (0-10); HEMATOCRIT 48 % (40-54); HEMOGLOBIN 16.2 g/dL (13.3-17.7); LYMPHOCYTES # (AUTO) 1.5 10^3/uL (1.0-4.0); LYMPHOCYTES % (AUTO) 16 % (12-44); MEAN CORPUSCULAR HEMOGLOBIN 30 pg (25-34); MEAN CORPUSCULAR HGB CONC 34 g/dL (32-36); MEAN CORPUSCULAR VOLUME 89 fL (80-99); MEAN PLATELET VOLUME 10.1 fL (9.0-12.2); MONOCYTES # (AUTO) 0.9 10^3/uL (0.0-1.0); MONOCYTES % (AUTO) 9 % (0-12); NEUTROPHILS # (AUTO) 6.8 10^3/uL (1.8-7.8); NEUTROPHILS % (AUTO) 73 % (42-75); PLATELET COUNT 270 10^3/uL (130-400); WHITE BLOOD COUNT 9.4 10^3/uL (4.3-11.0)
[2020-12-09 04:40] LABS: POTASSIUM 3.7 MMOL/L (3.6-5.0)
[2020-12-09 04:41] LABS: CALCIUM 10.1 MG/DL (8.5-10.1)
[2020-12-09 04:45] LABS: CREATININE SERUM 1.33 MG/DL (0.60-1.30); PHOSPHORUS 4.3 MG/DL (2.3-4.7)
[2020-12-09 04:48] LABS: MAGNESIUM 1.9 MG/DL (1.6-2.4)
[2020-12-09] MEDS: CATHETER FLUSH 10 ML SYR IV SCH ×3 (06:08→20:39)
[2020-12-09] MEDS: POTASSIUM CL 10MEQ/50ML IVPB 50 ML IV SCH (06:08)
[2020-12-09] MEDS: MAGNESIUM 1 GM/100 ML IVPB 100 ML IV SCH (06:08)
[2020-12-09] MEDS: KCL 20 MEQ TAB (K-DUR) PO SCH (06:09)
--- NOTE | 2020-12-09 06:40 | Progress Note - Hospitalist ---
Subjective HPI/CC On Admission Date Seen by Provider: Dec 09, 2020 Time Seen by Provider: 10:00 CC: Shortness of breath HPI: This is a 50 year-old white male, history of congestive heart failure and CAD who presented to the ER with shortness of breath found to have acute exacerbation congestive heart failure. Echocardiogram ordered and Aldactone Lisinopril ordered and cath report from [place] will be obtained and reviewed. Pacemaker was interrogated and cardiology is appreciated. Subjective/Events-last exam Pt doing pretty well Tachycardic at 101 Denied any alcohol use for a long time Pt doing well otherwise Review of Systems General: Fatigue Pulmonary: Dyspnea Objective Exam Vital Signs Vital Signs Date Time Temp Pulse Resp B/P (MAP) Pulse Ox O2 Delivery O2 Flow Rate FiO2 12/10/20 04:34 36.7 96 18 114/58 (76) 97 Room Air 12/09/20 12:00 3.00 3.00 Capillary Refill : Less Than 3 Seconds General Appearance: No Apparent Distress, WD/WN, Chronically ill Respiratory: Lungs Clear Cardiovascular: Tachycardia Neurologic/Psychiatric: Alert, Oriented x3, No Motor/Sensory Deficits, Normal Mood/Affect Results/Procedures Lab Patient resulted labs reviewed. Assessment/Plan Assessment and Plan Assess & Plan/Chief Complaint Assessment: Acute exacerbation of congestive heart failure Cardiomyopathy Plan: Cardiology consultation appreciated 12/09/2020: Transfer to fourth floor Appreciate cardiology Monitor tachycardia SOFIA HANKINS DO Dec 09, 2020 06:40
[2020-12-09] MEDS: lisINopril 10 MG (PRINIVIL) TABLET PO SCH (07:44)
[2020-12-09] MEDS: FUROSEMIDE 40 MG/4 ML INJ (LASIX) IV SCH (07:44)
[2020-12-09] MEDS: ASPIRIN E.C. 81 MG (ECOTRIN) TAB PO SCH (07:44)
[2020-12-09] MEDS: PRASUGREL 10 MG (EFFIENT) TABLET PO SCH (07:44)
[2020-12-09] MEDS: SPIRONOLACTONE 25 MG (ALDACTONE) TAB PO SCH (07:44)
[2020-12-09] MEDS ORDERED: ACETAMINOPHEN 325 MG TABLET PO PRN (08:15)
--- NOTE | 2020-12-09 10:21 | Progress Note - Cardiology ---
Cardiology SOAP Progress Note Subjective: Sitting up in bed eating morning meal States SOB is much better today No c/o CP or palpitations Objective: I&O/Vital Signs 12/10/20 12/10/20 12/10/20 12/10/20 00:04 04:34 08:00 08:00 Temp 36.8 36.7 35.9 Pulse 101 96 98 Resp 18 18 16 B/P (MAP) 106/71 (83) 114/58 (76) 103/69 (80) Pulse Ox 96 97 94 O2 Delivery Room Air Room Air Room Air Room Air 12/10/20 00:00 Intake Total 795 ml Balance 795 ml Weight (Pounds): 225 Weight (Ounces): 15.0 Weight (Calculated Kilograms): 102.079604 Constitutional: AAO x 3, well-developed, well-nourished Respiratory: No accessory muscle use, No respiratory distress; chest expansion is symmetric, chest is bilaterally symmetric, lungs clear to auscultation Cardiovascular: regular rate-rhythm; No JVD; S1 and S2, systolic murmur Gastrointestional: No tender; soft, round, audible bowel sounds Extremities: no lower extremity edema bilateral Neurologic/Psychiatric: grossly intact (moves all extremities) Skin: No rash on exposed areas, No ulcerations on exposed areas Results/Procedures: Labs Laboratory Tests 12/10/20 05:20: White Blood Count 6.8, Red Blood Count 5.52, Hemoglobin 16.5, Hematocrit 49, Mean Corpuscular Volume 90, Mean Corpuscular Hemoglobin 30, Mean Corpuscular Hemoglobin Concent 33, Red Cell Distribution Width 14.0, Platelet Count 278, Mean Platelet Volume 10.0, Immature Granulocyte % (Auto) 0, Neutrophils (%) (Auto) 59, Lymphocytes (%) (Auto) 25, Monocytes (%) (Auto) 12, Eosinophils (%) (Auto) 3, Basophils (%) (Auto) 1, Neutrophils # (Auto) 4.0, Lymphocytes # (Auto) 1.7, Monocytes # (Auto) 0.8, Eosinophils # (Auto) 0.2, Basophils # (Auto) 0.0, Immature Granulocyte # (Auto) 0.0, Sodium Level 136, Potassium Level 3.8, Chloride Level 101, Carbon Dioxide Level 23, Anion Gap 12, Blood Urea Nitrogen 33H, Creatinine 1.25, Estimat Glomerular Filtration Rate > 60, BUN/Creatinine Ratio 26, Glucose Level 102, Calcium Level 9.7, Corrected Calcium 9.7, Total Bilirubin 0.7, Aspartate Amino Transf (AST/SGOT) 34, Alanine Aminotransferase (ALT/SGPT) 49, Alkaline Phosphatase 85, Total Protein 7.6, Albumin 4.0 Microbiology 12/07/20 MRSA Screen - Final, Complete MRSA not isolated A/P: Assessment: Acute on chronic systolic CHF S/P Single chamber defibrillator implantation on 10-30-2019. Functioning normally on interrogation of 12-08-20 ICM CAD: - H/o [place] in late Jan 2019 (see below) - Card cath on 02/01/19: Coronary artery disease consisting of complete ostial occlusion of the left anterior descending artery to which successful percutaneous coronary intervention was carried out. Following deployment of Alpine Xience 2.75 x 18 mm stent, there is no significant residual stenosis. A large obtuse marginal of the left circumflex shows 80% bifurcation stenosis in i ts distal portion. Right coronary artery is dominant and has mild disease. Elevated left ventricular end-diastolic pressure. Well preserved global left ventricular systolic function with ejection fraction approximately 55%. - Repeat intervention on 02-07-[address] Almaraz: balloon angioplasty to the ostium and proximal LAD with slow flow in the LAD with reestablishment of flow and good results. Mild disease in the circumflex and right coronary artery Dilated left ventricle with anterior wall hypokinesia to akinesia, estimated ejection fraction 30% Ischemic cardiomyopathy. - Echo on 02/04/19: LVEF 40-45%, anteroseptal hypokinesis, mild conc LVH, RVSP 20 mmHg. LVEF 30% on cardiac cath of 02-07-19. - Echo of May 25, 2019 showed LVEF 30-35% - Echo of 12-08-20 showed LVEF 35-40%, mod to severe MR; mod TR; PASP 40-45 mmHg Hyperlipidemia, not taking any medication Tobaccoism, educated on smoking cessation Continued methamphetamine use - cessation advised Continued marijuana use - cessation advised H/O noncompliance with medications and f/u Plan: Acute on chronic systolic CHF - treat with diuretics - change to oral ICM - Continue Lisinopril and Aldactone CAD - continue ASA and Effient Request records from [facility] - reports recent cardiac cath - does not know the details - have not received yet Continue BB Monitor lab closely and replace electrolytes as indicated Ok to transfer to medical floor with tele MARGARITO IBANEZ Dec 09, 2020 10:21
--- NOTE | 2020-12-09 19:39 | Progress Note - Cardiology ---
Cardiology SOAP Progress Note Subjective: Shortness of breath and malaise have improved No cp or palp or syncope Gen weakness and malaise present Objective: I&O/Vital Signs 12/09/20 12/09/20 12/09/20 12/09/20 07:45 07:54 08:00 08:00 Temp 36.5 Pulse 98 B/P (MAP) 100/75 (83) Pulse Ox 97 96 O2 Delivery Room Air Room Air Room Air 12/09/20 12/09/20 12/09/20 12/09/20 09:00 10:00 10:25 12:00 Temp 36.5 36.5 Pulse 95 98 98 98 Resp 18 18 B/P (MAP) 99/73 (82) 97/72 (80) 97/72 (80) 97/72 (80) Pulse Ox 97 97 97 97 O2 Delivery Room Air Room Air Room Air Room Air O2 Flow Rate 3.00 3.00 3.00 3.00 12/09/20 12/09/20 15:39 19:28 Temp 36.4 36.6 Pulse 100 106 Resp 19 19 B/P (MAP) 80/42 (55) 95/64 (74) Pulse Ox 96 97 O2 Delivery Room Air Room Air 12/09/20 00:00 Intake Total 640 ml Output Total 1275 ml Balance -635 ml Weight (Pounds): 225 Weight (Ounces): 15.0 Weight (Calculated Kilograms): 102.682710 Constitutional: AAO x 3, well-developed, well-nourished Respiratory: No accessory muscle use, No respiratory distress; chest expansion is symmetric, chest is bilaterally symmetric, lungs clear to auscultation Cardiovascular: regular rate-rhythm; No JVD; S1 and S2, systolic murmur Gastrointestional: No tender; soft, round, audible bowel sounds Extremities: no lower extremity edema bilateral Neurologic/Psychiatric: grossly intact (moves all extremities) Skin: No rash on exposed areas, No ulcerations on exposed areas Results/Procedures: Labs Laboratory Tests 12/09/20 03:55: White Blood Count 9.4, Red Blood Count 5.38, Hemoglobin 16.2, Hematocrit 48, Mean Corpuscular Volume 89, Mean Corpuscular Hemoglobin 30, Mean Corpuscular Hemoglobin Concent 34, Red Cell Distribution Width 14.2, Platelet Count 270, Mean Platelet Volume 10.1, Immature Granulocyte % (Auto) 0, Neutrophils (%) (Auto) 73, Lymphocytes (%) (Auto) 16, Monocytes (%) (Auto) 9, Eosinophils (%) (Auto) 2, Basophils (%) (Auto) 0, Neutrophils # (Auto) 6.8, Lymphocytes # (Auto) 1.5, Monocytes # (Auto) 0.9, Eosinophils # (Auto) 0.2, Basophils # (Auto) 0.0, Immature Granulocyte # (Auto) 0.0, Sodium Level 139, Potassium Level 3.7, Chloride Level 99, Carbon Dioxide Level 25, Anion Gap 15H, Blood Urea Nitrogen 28H, Creatinine 1.33H, Estimat Glomerular Filtration Rate 57, BUN/Creatinine Ratio 21, Glucose Level 104, Calcium Level 10.1, Phosphorus Level 4.3, Magnesium Level 1.9 Microbiology 12/07/20 MRSA Screen - Final, Complete MRSA not isolated Laboratory Tests 12/07/20 20:45 12/08/20 03:38 12/09/20 03:55 A/P: Assessment: Acute on chronic systolic CHF, clinically improved S/P Single chamber defibrillator implantation on 10-30-2019. Functioning normally on interrogation of 12-08-20 ICM CAD: - H/o [place] in late Jan 2019 (see below) - Card cath on 02/01/19: Coronary artery disease consisting of complete ostial occlusion of the left anterior descending artery to which successful percutaneous coronary intervention was carried out. Following deployment of Alpine Xience 2.75 x 18 mm stent, there is no significant residual stenosis. A large obtuse marginal of the left circumflex shows 80% bifurcation stenosis in its distal portion. Right coronary artery is dominant and has mild disease. Elevated left ventricular end-diastolic pressure. Well preserved global left ventricular systolic function with ejection fraction approximately 55%. - Repeat intervention on 02-07-[address] Almaraz: balloon angioplasty to the ostium and proximal LAD with slow flow in the LAD with reestablishment of flow and good results. Mild disease in the circumflex and right coronary artery Dilated left ventricle with anterior wall hypokinesia to akinesia, estimated ejection fraction 30% Ischemic cardiomyopathy. - Echo on 02/04/19: LVEF 40-45%, anteroseptal hypokinesis, mild conc LVH, RVSP 20 mmHg. LVEF 30% on cardiac cath of 02-07-19. - Echo of May 25, 2019 showed LVEF 30-35% - Echo of 12-08-20 showed LVEF 35-40%, mod to severe MR; mod TR; PASP 40-45 mmHg Hyperlipidemia, not taking any medication Tobaccoism, educated on smoking cessation Continued methamphetamine use - cessation advised Continued marijuana use - cessation advised H/O noncompliance with medications and f/u Plan: Treat with diuretics - change to oral ICM - Continue Lisinopril and Aldactone CAD - continue ASA and Effient Request records from [facility] - reports recent cardiac cath - does not know the details - have not received yet Continue BB Monitor lab closely and replace electrolytes as indicated ALETHEA ALMAZAN MD FACP FAC CCDS Dec 09, 2020 19:39
[2020-12-10 05:56] LABS: BASOPHILS % (AUTO) 1 % (0-10); EOSINOPHILS # (AUTO) 0.2 10^3/uL (0.0-0.3); EOSINOPHILS % (AUTO) 3 % (0-10); HEMATOCRIT 49 % (40-54); HEMOGLOBIN 16.5 g/dL (13.3-17.7); LYMPHOCYTES # (AUTO) 1.7 10^3/uL (1.0-4.0); LYMPHOCYTES % (AUTO) 25 % (12-44); MEAN CORPUSCULAR HEMOGLOBIN 30 pg (25-34); MEAN CORPUSCULAR HGB CONC 33 g/dL (32-36); MEAN CORPUSCULAR VOLUME 90 fL (80-99); MONOCYTES # (AUTO) 0.8 10^3/uL (0.0-1.0); MONOCYTES % (AUTO) 12 % (0-12); NEUTROPHILS % (AUTO) 59 % (42-75); PLATELET COUNT 278 10^3/uL (130-400); WHITE BLOOD COUNT 6.8 10^3/uL (4.3-11.0)
[2020-12-10 05:58] LABS: CHLORIDE 101 MMOL/L (98-107); POTASSIUM 3.8 MMOL/L (3.6-5.0); SODIUM 136 MMOL/L (135-145)
[2020-12-10 05:59] LABS: CALCIUM 9.7 MG/DL (8.5-10.1)
[2020-12-10 06:00] LABS: GLUCOSE 102 MG/DL (70-105); TOTAL PROTEIN 7.6 GM/DL (6.4-8.2)
[2020-12-10 06:01] LABS: CARBON DIOXIDE 23 MMOL/L (21-32)
[2020-12-10 06:02] LABS: BILIRUBIN,TOTAL 0.7 MG/DL (0.1-1.0)
[2020-12-10 06:03] LABS: ALKALINE PHOSPHATASE 85 U/L (40-136)
[2020-12-10 06:04] LABS: CREATININE SERUM 1.25 MG/DL (0.60-1.30); GFR ESTIMATED > 60
[2020-12-10 06:05] LABS: BUN/CREATININE RATIO 26
[2020-12-10 06:06] LABS: ALANINE AMINOTRANSFERASE 49 U/L (0-55)
[2020-12-10] MEDS: CATHETER FLUSH 10 ML SYR IV SCH (06:40)
[2020-12-10] MEDS ORDERED: FURO80TA83 PO (08:01)
[2020-12-10] MEDS ORDERED: ASPI-999 PO (08:01)
[2020-12-10] MEDS ORDERED: LISI10TA25 PO (08:01)
[2020-12-10] MEDS ORDERED: SPIR25TA5 PO (08:01)
[2020-12-10] MEDS: ASPIRIN E.C. 81 MG (ECOTRIN) TAB PO SCH (08:21)
[2020-12-10] MEDS: PRASUGREL 10 MG (EFFIENT) TABLET PO SCH (08:21)
[2020-12-10] MEDS: lisINopril 10 MG (PRINIVIL) TABLET PO SCH (08:22)
[2020-12-10] MEDS: SPIRONOLACTONE 25 MG (ALDACTONE) TAB PO SCH (08:22)
[2020-12-10] MEDS ORDERED: FUROSEMIDE 40 MG (LASIX) TAB PO SCH (09:00)
--- NOTE | 2020-12-10 09:52 | Progress Note - Cardiology ---
Cardiology SOAP Progress Note Subjective: Sitting up in bed No c/o CP, SOB, palpitations, syncope or near syncope Wants to go home Objective: I&O/Vital Signs 12/10/20 12/10/20 12/10/20 12/10/20 00:04 04:34 08:00 08:00 Temp 36.8 36.7 35.9 Pulse 101 96 98 Resp 18 18 16 B/P (MAP) 106/71 (83) 114/58 (76) 103/69 (80) Pulse Ox 96 97 94 O2 Delivery Room Air Room Air Room Air Room Air 12/10/20 00:00 Intake Total 795 ml Balance 795 ml Weight (Pounds): 225 Weight (Ounces): 15.0 Weight (Calculated Kilograms): 102.607662 Constitutional: AAO x 3, well-developed, well-nourished Respiratory: No accessory muscle use, No respiratory distress; chest expansion is symmetric, chest is bilaterally symmetric, lungs clear to auscultation Cardiovascular: regular rate-rhythm; No JVD; S1 and S2, systolic murmur Gastrointestional: No tender; soft, round, audible bowel sounds Extremities: no lower extremity edema bilateral Neurologic/Psychiatric: grossly intact (moves all extremities) Skin: No rash on exposed areas, No ulcerations on exposed areas Results/Procedures: Labs Laboratory Tests 12/10/20 05:20: White Blood Count 6.8, Red Blood Count 5.52, Hemoglobin 16.5, Hematocrit 49, Mean Corpuscular Volume 90, Mean Corpuscular Hemoglobin 30, Mean Corpuscular Hemoglobin Concent 33, Red Cell Distribution Width 14.0, Platelet Count 278, Mean Platelet Volume 10.0, Immature Granulocyte % (Auto) 0, Neutrophils (%) (Auto) 59, Lymphocytes (%) (Auto) 25, Monocytes (%) (Auto) 12, Eosinophils (%) (Auto) 3, Basophils (%) (Auto) 1, Neutrophils # (Auto) 4.0, Lymphocytes # (Auto) 1.7, Monocytes # (Auto) 0.8, Eosinophils # (Auto) 0.2, Basophils # (Auto) 0.0, Immature Granulocyte # (Auto) 0.0, Sodium Level 136, Potassium Level 3.8, Chloride Level 101, Carbon Dioxide Level 23, Anion Gap 12, Blood Urea Nitrogen 33H, Creatinine 1.25, Estimat Glomerular Filtration Rate > 60, BUN/Creatinine Ratio 26, Glucose Level 102, Calcium Level 9.7, Corrected Calcium 9.7, Total Bilirubin 0.7, Aspartate Amino Transf (AST/SGOT) 34, Alanine Aminotransferase (ALT/SGPT) 49, Alkaline Phosphatase 85, Total Protein 7.6, Albumin 4.0 Microbiology 12/07/20 MRSA Screen - Final, Complete MRSA not isolated A/P: Assessment: Acute on chronic systolic CHF, clinically improved S/P Single chamber defibrillator implantation on 10-30-2019. Functioning normally on interrogation of 12-08-20 ICM CAD: - H/o [place] in late Jan 2019 (see below) - Card cath on 02/01/19: Coronary artery disease consisting of complete ostial occlusion of the left anterior descending artery to which successful percutaneous coronary intervention was carried out. Following deployment of Alpine Xience 2.75 x 18 mm stent, there is no significant residual stenosis. A large obtuse marginal of the left circumflex shows 80% bifurcation stenosis in its distal portion. Right coronary artery is dominant and has mild disease. Elevated left ventricular end-diastolic pressure. Well preserved global left ventricular systolic function with ejection fraction approximately 55%. - Repeat intervention on 02-07-[address] Almaraz: balloon angioplasty to the ostium and proximal LAD with slow flow in the LAD with reestablishment of flow and good results. Mild disease in the circumflex and right coronary artery Dilated left ventricle with anterior wall hypokinesia to akinesia, estimated ejection fraction 30% Ischemic cardiomyopathy. - Echo on 02/04/19: LVEF 40-45%, anteroseptal hypokinesis, mild conc LVH, RVSP 20 mmHg. LVEF 30% on cardiac cath of 02-07-19. - Echo of May 25, 2019 showed LVEF 30-35% - Echo of 12-08-20 showed LVEF 35-40%, mod to severe MR; mod TR; PASP 40-45 mmHg Hyperlipidemia, not taking any medication Tobaccoism, educated on smoking cessation Continued methamphetamine use - cessation advised Continued marijuana use - cessation advised H/O noncompliance with medications and f/u Plan: Continue current medication regimen ICM - Continue Lisinopril and Aldactone and BB CAD - continue ASA and Effient Advised and discussed importance of medication compliance, verbalized understanding OK to discharge home Advise out pt f/u MARGARITO IBANEZ Dec 10, 2020 09:52
--- NOTE | 2020-12-10 11:17 | Discharge Summary ---
Discharge Summary Hospital Course Was the Problem List Reviewed?: Yes Problems/Dx: (1) Acute on chronic heart failure Status: Acute Qualifiers: Qualified Codes: I50.43 - Acute on chronic combined systolic (congestive) and diastolic (congestive) heart failure (2) S/P ICD (internal cardiac defibrillator) procedure (3) Acute heart failure with reduced ejection fraction and diastolic dysfunction Status: Acute (4) Elevated troponin I level Status: Acute Hospital Course Date of Admission: Dec 07, 2020 at 21:33 Admission Diagnosis : Family Physician/Provider: Luis Plunkett MD Date of Discharge: 12/10/20 Discharge Diagnosis: AECHF Hospital Course: Hospital course: Pt had an uneventful four day hospital course when he was admitted for SOB, fo und to have exacerbation of CHF. Cardiology managed him aggressively with IV diuresis and records were reviewed. Pt was deemed stable for discharge from a cardiology standpoint and he was sent home in improved condition. Labs and Pending Lab Test: Laboratory Tests 12/10/20 05:20: White Blood Count 6.8, Red Blood Count 5.52, Hemoglobin 16.5, Hematocrit 49, Mean Corpuscular Volume 90, Mean Corpuscular Hemoglobin 30, Mean Corpuscular Hemoglobin Concent 33, Red Cell Distribution Width 14.0, Platelet Count 278, Mean Platelet Volume 10.0, Immature Granulocyte % (Auto) 0, Neutrophils (%) (Auto) 59, Lymphocytes (%) (Auto) 25, Monocytes (%) (Auto) 12, Eosinophils (%) (Auto) 3, Basophils (%) (Auto) 1, Neutrophils # (Auto) 4.0, Lymphocytes # (Auto) 1.7, Monocytes # (Auto) 0.8, Eosinophils # (Auto) 0.2, Basophils # (Auto) 0.0, Immature Granulocyte # (Auto) 0.0, Sodium Level 136, Potassium Level 3.8, Chloride Level 101, Carbon Dioxide Level 23, Anion Gap 12, Blood Urea Nitrogen 33H, Creatinine 1.25, Estimat Glomerular Filtration Rate > 60, BUN/Creatinine Ratio 26, Glucose Level 102, Calcium Level 9.7, Corrected Calcium 9.7, Total Bilirubin 0.7, Aspartate Amino Transf (AST/SGOT) 34, Alanine Aminotransferase (ALT/SGPT) 49, Alkaline Phosphatase 85, Total Protein 7.6, Albumin 4.0 Microbiology 12/07/20 MRSA Screen - Final, Complete MRSA not isolated Home Meds Active Lasix (Furosemide) 80 Mg Tablet 80 Mg PO DAILY Aspirin 81 Mg Tab.chew 81 Mg PO DAILY Lisinopril 10 Mg Tablet 10 Mg PO DAILY Spironolactone 25 Mg Tablet 25 Mg PO DAILY Reported Prasugrel HCl 10 Mg Tablet 10 Mg PO DAILY Metoprolol Succinate 25 Mg Tab.er.24h 25 Mg PO DAILY Assessment/Pt Instructions PCP 1 week Discharge Planning: <30 minutes discharge planning Discharge Physical Examination Vital Signs Vital Signs Date Time Temp Pulse Resp B/P (MAP) Pulse Ox O2 Delivery O2 Flow Rate FiO2 12/10/20 08:00 35.9 98 16 103/69 (80) 94 Room Air 12/09/20 12:00 3.00 3.00 General Appearance: No Apparent Distress, WD/WN, Chronically ill Respiratory: Lungs Clear Allergies: Coded Allergies: No Known Drug Allergies (Unverified , 05/29/11) Discharge Summary Date of Admission Dec 07, 2020 at 21:33 Date of Discharge Discharge Date: Dec 10, 2020 Admission Diagnosis Assessment: Acute exacerbation of congestive heart failure Cardiomyopathy Plan: Cardiology consultation appreciated Discharge Diagnosis Assessment: Acute exacerbation of congestive heart failure Cardiomyopathy Plan: Cardiology consultation appreciated 12/09/2020: Transfer to fourth floor Appreciate cardiology Monitor tachycardia SOFIA HANKINS DO Dec 10, 2020 11:17
[2020-12-10 11:36] VITALS: BP 103/69
== END 2020-12-10 12:00 | disposition home or self-care (01) | DRG 292 ==
LOC: EDUNIT# 20:23 → ER 20:25 → ICU 21:33 → 4TH 12-09 12:37
PROVIDERS: ADMIT Internal Medicine; ATTEND Internal Medicine
PROC: 5A09357 Assistance with Respiratory Ventilation, Less than 24 Consecutive Hours, Continuous Positive Airway Pressure (ICD-10-PCS; principal; 2020-12-07)
DX: I50.23 Acute on chronic systolic (congestive) heart failure (principal); I25.5 Ischemic cardiomyopathy; N17.9 Acute kidney failure, unspecified; F15.90 Other stimulant use, unspecified, uncomplicated; Z20.822 Contact with and (suspected) exposure to COVID-19; I25.10 Atherosclerotic heart disease of native coronary artery without angina pectoris; F17.210 Nicotine dependence, cigarettes, uncomplicated; F12.90 Cannabis use, unspecified, uncomplicated; Z59.0 Homelessness; Z95.810 Presence of automatic (implantable) cardiac defibrillator; Z91.14 Patient's other noncompliance with medication regimen
CPT/HCPCS: 36415; 71045; 80048; 80053; 83735; 83880; 84100; 84484; 85025; 87081; 87636; 93306; 96374

== ENCOUNTER 2020-12-23 11:08 | Emergency (ER) | payer OTHER ==
[~2020-12-23] VITALS: Ht 182 cm; Wt 100.0 kg
[~2020-12-23 11:08] MED LIST changes: +FURO80TA83 PO; +LISI10TA25 PO; +MTP25TSR PO; +PRAS10TA10 PO; +SPIR25TA5 PO
--- NOTE | 2020-12-23 12:01 | ED Cardiac General ---
History of Present Illness General Chief Complaint: Chest Pain Stated Complaint: SOB,COUGH, VOMITTING BLOOD, EXPOSURE Nursing Triage Note: PT PRESENTS TO THE ED C/O TWO DAYS OF CHEST PAIN THAT THE PATIENT STATES BEGAN SECONDARY TO SEVEN DAYS OF LOOSE STOOLS AND FEVER. PT STATES HE HAS AN EXTENSIVE CARDIAC HX. 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 Source: patient Exam Limitations: no limitations History of Present Illness Date Seen by Provider: Dec 23, 2020 Time Seen by Provider: 12:00 Initial Comments This is a well appearing 50 yo male who presented to the ED with c/o weakness, fatigue, cough with bloody sputum for the past 2 days. States he is staying with friends and 3 of the household members have tested positive for COVID. Reports chills, no fevers. Denies chest pain, nausea, vomiting, abdominal pain, diarrhea. Eating and drinking well. States he was hospitalized at [facility] in November for AECHF. He was prescribed Lasix 80mg at that time and was unable to get this filled. NTG SL CONTROL CABINET ASSEMBLER: No ASA po CONTROL CABINET ASSEMBLER: No Allergies and Home Medications Allergies Coded Allergies: No Known Drug Allergies (Unverified , 05/29/11) Home Medications Albuterol Sulfate 1 Puff Puff, 2 PUFF INH Q4H 1 PUFF = 90 MCG Prescribed by: SIN PERSAUD on 12/23/20 162 Aspirin 81 Mg Tab.chew, 81 MG PO DAILY Prescribed by: MARGARITO IBANEZ on 12/10/20800 Dexamethasone 6 Mg Tablet, 6 MG PO DAILY Prescribed by: SIN PERSAUD on 12/23/201626 Furosemide 80 Mg Tablet, 80 MG PO DAILY Prescribed by: MARGARITO IBANEZ on 12/10/20800 Lisinopril 10 Mg Tablet, 10 MG PO DAILY Prescribed by: MARGARITO IBANEZ on 12/10/20800 Metoprolol Succinate 25 Mg Tab.er.24h, 25 MG PO DAILY, (Reported) Prasugrel HCl 10 Mg Tablet, 10 MG PO DAILY, (Reported) Spironolactone 25 Mg Tablet, 25 MG PO DAILY Prescribed by: MARGARITO IBANEZ on 12/10/20800 Patient Home Medication List Home Medication List Reviewed: Yes Review of Systems Review of Systems Constitutional: see HPI EENTM: No Symptoms Reported Respiratory: See HPI Cardiovascular: No Symptoms Reported Gastrointestinal: No Symptoms Reported Genitourinary: No Symptoms Reported Musculoskeletal: see HPI Skin: no symptoms reported Psychiatric/Neurological: No Symptoms Reported Endocrine: No Symptoms Reported Hematologic/Lymphatic: No Symptoms Reported Past Tbplwbd-Hgcyuu-Axwgsf Hx Patient Social History Tobacco Use?: Yes Tobacco type used: Cigarettes Substance use?: No Substance type: Marijuana Additional substance use comme: MARIJUANA AND METH HX Immunizations Up To Date Tetanus Booster (TDap): Unknown Influenza Vaccine Up-to-Date: No; Not Current Seasonal Allergies Seasonal Allergies: No Past Medical History Surgery/Hospitalization HX: FOUR CO'S. 3 STENTS PLACED Surgeries: Yes (LEFT SHOULDER BICEPS TENDON, HEART STENTS 02/01/19) Orthopedic Respiratory: No Cardiac: Yes (heart failure) Cardiomyopathy, Coronary Artery Disease, Valvular Heart Disease Neurological: No Genitourinary: No Gastrointestinal: No Musculoskeletal: Yes (LEFT SHOULDER SURGERY) Endocrine: No HEENT: No Cancer: No Psychosocial: No Integumentary: No Blood Disorders: No Family Medical History Diabetes mellitus 19 MOTHER, Onset:Unknown Myocardial infarction 19 MOTHER Heart Disease, Diabetes Physical Exam Vital Signs Vital Signs - First Documented 12/23/20 11:24 Temp 36.8 Pulse 121 Resp 22 B/P (MAP) 118/72 (87) Pulse Ox 97 O2 Delivery Room Air Capillary Refill : Less Than 3 Seconds Height, Weight, BMI Height: 6'2.00" Weight: 225lbs. 15.0oz. 102.594440na; 30.00 BMI Method:Stated General Appearance: No Apparent Distress, WD/WN HEENT: PERRL/EOMI, Normal ENT Inspection, Moist Mucous Membranes Neck: Full Range of Motion, Normal Inspection, Non Tender Respiratory: Lungs Clear, Normal Breath Sounds, No Accessory Muscle Use, No Respiratory Distress, Decreased Breath Sounds Cardiovascular: Regular Rate, Rhythm, No Edema, Normal Peripheral Pulses Gastrointestinal: Normal Bowel Sounds, Non Tender, Soft Extremity: Normal Capillary Refill, Normal Inspection, Normal Range of Motion Neurologic/Psychiatric: Alert, Oriented x3, No Motor/Sensory Deficits, Normal Mood/Affect Skin: Normal Color, Warm/Dry Progress/Results/Core Measures Results/Orders Lab Results Laboratory Tests Test 12/23/20 11:30 12/23/20 13:55 Range/Units White Blood Count 4.9 4.3-11.0 10^3/uL Red Blood Count 5.40 4.30-5.52 10^6/uL Hemoglobin 15.9 13.3-17.7 g/dL Hematocrit 48 40-54 % Mean Corpuscular Volume 89 80-99 fL Mean Corpuscular Hemoglobin 29 25-34 pg Mean Corpuscular Hemoglobin Concent 33 32-36 g/dL Red Cell Distribution Width 13.7 10.0-14.5 % Platelet Count 185 130-400 10^3/uL Mean Platelet Volume 11.0 9.0-12.2 fL Immature Granulocyte % (Auto) 0 % Neutrophils (%) (Auto) 73 42-75 % Lymphocytes (%) (Auto) 20 12-44 % Monocytes (%) (Auto) 6 0-12 % Eosinophils (%) (Auto) 0 0-10 % Basophils (%) (Auto) 1 0-10 % Neutrophils # (Auto) 3.5 1.8-7.8 10^3/uL Lymphocytes # (Auto) 1.0 1.0-4.0 10^3/uL Monocytes # (Auto) 0.3 0.0-1.0 10^3/uL Eosinophils # (Auto) 0.0 0.0-0.3 10^3/uL Basophils # (Auto) 0.0 0.0-0.1 10^3/uL Immature Granulocyte # (Auto) 0.0 0.0-0.1 10^3/uL Prothrombin Time 14.8 H 12.2-14.7 SEC INR Comment 1.1 0.8-1.4 Activated Partial Thromboplast Time 33 24-35 SEC D-Dimer 0.70 H 0.00-0.49 UG/ML Sodium Level 135 135-145 MMOL/L Potassium Level 4.4 3.6-5.0 MMOL/L Chloride Level 100 98-107 MMOL/L Carbon Dioxide Level 21 21-32 MMOL/L Anion Gap 14 5-14 MMOL/L Blood Urea Nitrogen 23 H 7-18 MG/DL Creatinine 1.15 0.60-1.30 MG/DL Estimat Glomerular Filtration Rate > 60 BUN/Creatinine Ratio 20 Glucose Level 109 H 70-105 MG/DL Calcium Level 9.0 8.5-10.1 MG/DL Corrected Calcium 8.9 8.5-10.1 MG/DL Magnesium Level 1.8 1.6-2.4 MG/DL Total Bilirubin 0.9 0.1-1.0 MG/DL Aspartate Amino Transf (AST/SGOT) 26 5-34 U/L Alanine Aminotransferase (ALT/SGPT) 18 0-55 U/L Alkaline Phosphatase 73 40-136 U/L Creatine Kinase MB 0.4 <6.6 NG/ML Myoglobin 26.8 10.0-92.0 NG/ML Troponin I 0.036 H 0.031 H <0.028 NG/ML B-Type Natriuretic Peptide 372.8 H <100.0 PG/ML Total Protein 7.8 6.4-8.2 GM/DL Albumin 4.1 3.2-4.5 GM/DL Influenza Type A (RT-PCR) Not Detected Not Detecte Influenza Type B (RT-PCR) Not Detected Not Detecte SARS-CoV-2 RNA (RT-PCR) Detected H Not Detecte My Orders Orders - SIN PERSAUD DELI/BAKERY ASSOCIATE Cbc With Automated Diff (12/23/20 12:04) Magnesium (12/23/20 12:04) Chest 1 View, Ap/Pa Only (12/23/20 12:04) Comprehensive Metabolic Panel (12/23/20 12:04) Myoglobin Serum (12/23/20 12:04) Protime With Inr (12/23/20 12:04) Partial Thromboplastin Time (12/23/20 12:04) O2 (12/23/20 12:04) Monitor-Rhythm Ecg Trace Only (12/23/20 12:04) Ed Iv/Invasive Line Start (12/23/20 12:04) Creatine Kinase Mb (12/23/20 12:04) BNP (12/23/20 12:04) Fibrin Degradation Products (12/23/20 12:04) Troponin I (12/23/20 12:04) Aspirin Chewable Tablet (Baby Aspirin Ch (12/23/20 12:15) Covid 19 Inhouse Test (12/23/20 12:04) Influenza A And B By Pcr (12/23/20 12:04) Troponin I (12/23/20 13:36) Ns Iv 1000 Ml (Sodium Chloride 0.9%) (12/23/20 14:30) Medications Given in ED Vital Signs/I&O 12/23/20 12/23/20 12/23/20 12/23/20 11:24 11:24 11:30 16:39 Temp 36.8 36.4 Pulse 121 108 Resp 22 22 B/P (MAP) 118/72 (87) 98/69 (87) Pulse Ox 97 98 96 O2 Delivery Room Air Room Air Room Air Room Air Blood Pressure Mean: 87 Progress Progress Note : Progress Note Patient examined and in no acute distress. Orders placed for COVID and Cardiac workup. Vital signs stable. Given ASA 324mg chewable tabs. Labs reviewed. Initial troponin slightly elevated, will repeat. COVID positive. Discussed outpatient monoclonal antibody infusion to help reduce progressive of COVID symptoms and reduce likelihood of hospitalization. Risks/benefits as well as alternative treatments reviewed. He is agreeable with monoclonal infusion. Orders placed and they will call patient with date/time of infusion. Repeat troponin decreased. Reported feeling much improved after fluids. Reviewed discharge POC and he is agreeable with plan. Initial ECG Impression Date: Dec 23, 2020 Initial ECG Impression Time: 11:30 Initial ECG Rate: 117 Initial ECG Rhythm: S.Tach Initial ECG Intervals RBBB Initial ECG Impression: Nonspecific Changes Diagnostic Imaging Diagonstic Imaging: Xray Plain Films/CT/US/NM/MRI: chest Comments [facility], [place] NAME: YURIY MARTINI [facility] REC#: [id number] PT STATUS: REG ER : 1970 PHYSICIAN: SIN PERSAUD APRN ADMIT DATE: 12/23/20/ER Draft Date of Exam:12/23/20 CHEST 1 VIEW, AP/PA ONLY CHEST 1 VIEW, AP/PA ONLY INDICATION: Chest pain. COMPARISON: 12/07/2020. FINDINGS: New ill-defined opacities have developed in the bilateral parahilar and upper lung zones. No pleural effusion or pneumothorax. Stable cardiomegaly with left pectoral transvenous pacemaker/ICD. IMPRESSION: 1. New bilateral pulmonary opacities are most likely due to pulmonary edema. Alternatively, atypical infection could give this appearance in the appropriate setting. Dictated on workstation # [id number] Dict: 12/23/20 1247 Trans: 12/23/20 1251 [id number] Interpreted by: MATEUS SWANSON MD Electronically signed by: Reviewed: Reviewed by Me Departure Impression Primary Impression: COVID-19 Disposition: 01 HOME, SELF-CARE Condition: Stable Departure-Patient Inst. Decision time for Depature: 14:34 Referrals: [facility] (PCP) Primary Care Physician HECTOR MEMBRENO MD (Family) Primary Care Physician Patient Instructions: COVID-19 (DC) Add. Discharge Instructions: Plan: 1. Isolate at home until you are released by the [facility], they will reach you by telephone. 2. Use albuterol inhaler 2 puffs every four hours as needed for shortness of breath. 3. Use incentive spirometer as shown in ER every 2 hours while awake. 4. Expect a phone call from scheduling for the outpatient monoclonal therapy if you qualify. 5. Take steroids daily with food as directed. 6. Return for any new, concerning or worsening symptoms. All discharge instructions reviewed with patient and/or family. Voiced understanding. Scripts Dexamethasone (Dexamethasone) 6 Mg Tablet 6 MG PO DAILY for 10 Days, #10 TAB 0 Refills Prov: SIN PERSAUD DELI/BAKERY ASSOCIATE 12/23/20 Albuterol Sulfate (VENTOLIN HFA) 1 Puff Puff 2 PUFF INH Q4H for Shortness of Breath for 10 Days, #1 INHALER 0 Refills 1 PUFF = 90 MCG Prov: SIN PERSAUD DELI/BAKERY ASSOCIATE 12/23/20 SIN PERSAUD DELI/BAKERY ASSOCIATE Dec 23, 2020 12:01
[2020-12-23 12:15] LABS: BASOPHILS % (AUTO) 1 % (0-10); EOSINOPHILS % (AUTO) 0 % (0-10); HEMATOCRIT 48 % (40-54); HEMOGLOBIN 15.9 g/dL (13.3-17.7); LYMPHOCYTES % (AUTO) 20 % (12-44); MEAN CORPUSCULAR HEMOGLOBIN 29 pg (25-34); MEAN CORPUSCULAR HGB CONC 33 g/dL (32-36); MEAN CORPUSCULAR VOLUME 89 fL (80-99); MONOCYTES # (AUTO) 0.3 10^3/uL (0.0-1.0); MONOCYTES % (AUTO) 6 % (0-12); NEUTROPHILS # (AUTO) 3.5 10^3/uL (1.8-7.8); NEUTROPHILS % (AUTO) 73 % (42-75); PLATELET COUNT 185 10^3/uL (130-400); WHITE BLOOD COUNT 4.9 10^3/uL (4.3-11.0)
[2020-12-23] MEDS ORDERED: ASPIRIN 81 MG CHEW (CHILDREN'S ASA) PO ONE (12:15)
[2020-12-23 12:18] LABS: ALBUMIN 4.1 GM/DL (3.2-4.5); CHLORIDE 100 MMOL/L (98-107); POTASSIUM 4.4 MMOL/L (3.6-5.0); SODIUM 135 MMOL/L (135-145)
[2020-12-23 12:21] LABS: GLUCOSE 109 MG/DL (70-105); TOTAL PROTEIN 7.8 GM/DL (6.4-8.2)
[2020-12-23 12:22] LABS: CARBON DIOXIDE 21 MMOL/L (21-32); INR 1.1 (0.8-1.4); PROTHROMBIN TIME PATIENT 14.8 SEC (12.2-14.7)
[2020-12-23 12:23] LABS: BILIRUBIN,TOTAL 0.9 MG/DL (0.1-1.0)
[2020-12-23 12:24] LABS: ALKALINE PHOSPHATASE 73 U/L (40-136); CREATININE SERUM 1.15 MG/DL (0.60-1.30); GFR ESTIMATED > 60
[2020-12-23 12:25] LABS: BUN/CREATININE RATIO 20
[2020-12-23 12:27] LABS: ALANINE AMINOTRANSFERASE 18 U/L (0-55); MAGNESIUM 1.8 MG/DL (1.6-2.4)
[2020-12-23 12:35] LABS: CREATINE KINASE MB 0.4 NG/ML (<6.6)
--- NOTE | 2020-12-23 12:51 | Diagnostic Imaging Report ---
CHEST 1 VIEW, AP/PA ONLY INDICATION: Chest pain. COMPARISON: 12/07/2020. FINDINGS: New ill-defined opacities have developed in the bilateral parahilar and upper lung zones. No pleural effusion or pneumothorax. Stable cardiomegaly with left pectoral transvenous pacemaker/ICD. IMPRESSION: 1. New bilateral pulmonary opacities are most likely due to pulmonary edema. Alternatively, atypical infection could give this appearance in the appropriate setting. Dictated by: Dictated on workstation # [id number]
[2020-12-23] MEDS ORDERED: NS IV 1000 ML 1,000 ML IV ONE (14:30)
[2020-12-23] MEDS ORDERED: DEXA6TAB PO (16:27)
[2020-12-23] MEDS ORDERED: RT-ALBUINH INH (16:27)
[2020-12-23 16:39] VITALS: BP 98/69
== END 2020-12-23 16:47 | disposition home or self-care (01) ==
LOC: EDUNIT# 11:08 → ER 11:10
DX: U07.1 COVID-19 (principal); I50.9 Heart failure, unspecified; Z79.82 Long term (current) use of aspirin; Z79.01 Long term (current) use of anticoagulants
CPT/HCPCS: 36415; 71045; 80053; 82553; 83735; 83874; 83880; 84484; 85025; 85379; 85610; 85730; 87636; 93005; 93041

== ENCOUNTER 2021-01-08 22:40 | Emergency (ER) | payer OTHER ==
[~2021-01-08] VITALS: Ht 182 cm; Wt 100.0 kg
[~2021-01-08 22:40] MED LIST changes: +DEXA6TAB PO; +RT-ALBUINH INH
--- NOTE | 2021-01-08 23:18 | ED Respiratory ---
General Chief Complaint: Respiratory Problems Stated Complaint: DIZZINESS, SOB Nursing Triage Note: soa x4 days History of Present Illness Date Seen by Provider: Jan 08, 2021 Time Seen by Provider: 23:00 Initial Comments Patient is a 50-year-old male who presents to the emergency department today with a chief complaint of shortness of breath. Patient states he has become progressively more short of breath over the last 4 days. He has an extensive cardiac history with stents. He was recently homeless on 04 January. Patient is known to use methamphetamines and states that he last used at about 930 or 10 AM this morning. He denies chest pain, nausea, vomiting. He states he has a little abdominal discomfort with the shortness of breath. No diarrhea. He was diagnosed with Covid on December 23. Patient denies any fevers or chills or productive cough. No swelling in his extremities. Patient states that he sees cardiology at [facility] in [place]. They will not do any procedures on him as long as he is using methamphetamine. He states he is not taking any of his prescribed medications recently. He has a pacer defibrillator. He is quite tachycardic on presentation with a heart rate in the 130s to 140s. SPO2 is 100% on room air. He is tachypneic. All other review of systems reviewed and negative except as stated above. Timing/Duration: week, getting worse Severity: severe Prior Episodes/Possible Cause: illness exposure, smoke exposure, other (Methamphetamine) Modifying Factors: Improves With Albuterol Inhaler Associated Symptoms: dizziness, lightheadedness, shortness of breath Allergies and Home Medications Allergies Coded Allergies: No Known Drug Allergies (Unverified , 05/29/11) Home Medications Albuterol Sulfate 1 Puff Puff, 2 PUFF INH Q4H 1 PUFF = 90 MCG Prescribed by: SIN PERSAUD on 12/23/20 1627 Aspirin 81 Mg Tab.chew, 81 MG PO DAILY Prescribed by: MARGARITO IBANEZ on 12/10/20 0801 Azithromycin 250 Mg Tablet, 250 MG PO UD TAKE 2 TABLETS ON DAY ONE THEN TAKE 1 TABLET DAILY FOR FOUR MORE DAYS Prescribed by: ELLYN ROMERO on 01/09/21 025 Cefdinir 300 Mg Capsule, 300 MG PO BID Prescribed by: ELLYN ROMERO on 01/09/21 025 Dexamethasone 6 Mg Tablet, 6 MG PO DAILY Prescribed by: SIN PERSAUD on 12/23/20 1627 Furosemide 80 Mg Tablet, 80 MG PO DAILY Prescribed by: MARGARITO IBANEZ on 12/10/20 08 Lisinopril 10 Mg Tablet, 10 MG PO DAILY Prescribed by: MARGARITO IBANEZ on 12/10/20800 Metoprolol Succinate 25 Mg Tab.er.24h, 25 MG PO DAILY, (Reported) Prasugrel HCl 10 Mg Tablet, 10 MG PO DAILY, (Reported) Spironolactone 25 Mg Tablet, 25 MG PO DAILY Prescribed by: MARGARITO IBANEZ on 12/10/20800 Patient Home Medication List Home Medication List Reviewed: Yes Review of Systems Review of Systems Constitutional: see HPI EENTM: no symptoms reported Respiratory: dyspnea on exertion, short of breath Cardiovascular: palpitations Gastrointestinal: no symptoms reported Genitourinary: no symptoms reported Musculoskeletal: no symptoms reported Skin: no symptoms reported Psychiatric/Neurological: No Symptoms Reported All Other Systems Reviewed Negative Unless Noted: Yes Past Vylmpbl-Istcbx-Mhyucg Hx Patient Social History Tobacco Use?: Yes Tobacco type used: Cigarettes Smoking Status: Current Everyday Smoker Use of E-Cig and/or Vaping dev: No Substance use?: Yes Substance type: Methamphetamine, Marijuana Alcohol Use?: No Pt feels they are or have been: No Immunizations Up To Date Tetanus Booster (TDap): Unknown Seasonal Allergies Seasonal Allergies: No Past Medical History Surgery/Hospitalization HX: FOUR ME'S. 3 STENTS PLACED Surgeries: Yes (LEFT SHOULDER BICEPS TENDON, HEART STENTS 02/01/19) Orthopedic Respiratory: No Cardiac: Yes (heart failure) Cardiomyopathy, Coronary Artery Disease, Valvular Heart Disease Neurological: No Genitourinary: No Gastrointestinal: No Musculoskeletal: Yes (LEFT SHOULDER SURGERY) Endocrine: No HEENT: No Cancer: No Psychosocial: No Integumentary: No Blood Disorders: No Family Medical History Diabetes mellitus 19 MOTHER, Onset:Unknown Myocardial infarction 19 MOTHER Heart Disease, Diabetes Physical Exam Vital Signs - First Documented 01/08/21 22:48 Temp 36.7 Pulse 134 Resp 26 B/P (MAP) 125/94 (104) Pulse Ox 100 Capillary Refill : Less Than 3 Seconds Height: 6'2.00" Weight: 225lbs. 15.0oz. 102.344434en; 30.00 BMI Method:Stated General Appearance: WD/WN, mild distress Eyes: Bilateral Eye Normal Inspection, Bilateral Eye PERRL, Bilateral Eye EOMI HEENT: PERRL/EOMI Neck: full range of motion Respiratory: lungs clear, no respiratory distress, crackles (A couple of crackles noted at the bases bilaterally posteriorly) Cardiovascular: regular rate, rhythm, tachycardia Gastrointestinal: non tender, soft Extremities: normal range of motion, normal inspection, no pedal edema, no calf tenderness, normal capillary refill Neurologic/Psychiatric: alert, normal mood/affect, oriented x 3 Skin: normal color, warm/dry Progress/Results/Core Measures Suspected Sepsis SIRS Temperature: Pulse: 134 Respiratory Rate: 26 Laboratory Tests 01/08/21 23:25: White Blood Count 10.7 Blood Pressure 125 /94 Mean: 104 Laboratory Tests 01/08/21 23:25: Creatinine 1.16, Platelet Count 280 Results/Orders Lab Results Laboratory Tests Test 01/08/21 23:25 01/09/21 00:00 Range/Units White Blood Count 10.7 4.3-11.0 10^3/uL Red Blood Count 4.23 L 4.30-5.52 10^6/uL Hemoglobin 12.5 L 13.3-17.7 g/dL Hematocrit 39 L 40-54 % Mean Corpuscular Volume 92 80-99 fL Mean Corpuscular Hemoglobin 30 25-34 pg Mean Corpuscular Hemoglobin Concent 32 32-36 g/dL Red Cell Distribution Width 15.8 H 10.0-14.5 % Platelet Count 280 130-400 10^3/uL Mean Platelet Volume 9.9 9.0-12.2 fL Immature Granulocyte % (Auto) 1 % Neutrophils (%) (Auto) 78 H 42-75 % Lymphocytes (%) (Auto) 11 L 12-44 % Monocytes (%) (Auto) 9 0-12 % Eosinophils (%) (Auto) 1 0-10 % Basophils (%) (Auto) 1 0-10 % Neutrophils # (Auto) 8.3 H 1.8-7.8 10^3/uL Lymphocytes # (Auto) 1.2 1.0-4.0 10^3/uL Monocytes # (Auto) 1.0 0.0-1.0 10^3/uL Eosinophils # (Auto) 0.1 0.0-0.3 10^3/uL Basophils # (Auto) 0.1 0.0-0.1 10^3/uL Immature Granulocyte # (Auto) 0.1 0.0-0.1 10^3/uL Sodium Level 135 135-145 MMOL/L Potassium Level 4.6 3.6-5.0 MMOL/L Chloride Level 102 98-107 MMOL/L Carbon Dioxide Level 18 L 21-32 MMOL/L Anion Gap 15 H 5-14 MMOL/L Blood Urea Nitrogen 21 H 7-18 MG/DL Creatinine 1.16 0.60-1.30 MG/DL Estimat Glomerular Filtration Rate 67 BUN/Creatinine Ratio 18 Glucose Level 128 H 70-105 MG/DL Calcium Level 9.0 8.5-10.1 MG/DL Total Creatine Kinase 89 30-200 U/L Troponin I < 0.028 <0.028 NG/ML Procalcitonin 0.07 <0.10 NG/ML My Orders Orders - ELLYN ROMERO MD Ed Iv/Invasive Line Start (01/08/21 23:13) Cbc With Automated Diff (01/08/21 23:13) Basic Metabolic Panel (01/08/21 23:13) Ekg Tracing (01/08/21 23:13) Troponin I (01/08/21 23:13) Creatine Kinase (01/08/21 23:13) Ct Angio Chest W (01/09/21 00:01) Chest 1 View, Ap/Pa Only (01/09/21 00:01) Iohexol Injection (Omnipaque 350 Mg/Ml 1 (01/09/21 00:45) Received Contrast (Hold Metformin- Contr (01/09/21 00:45) Sodium Chloride Flush (Catheter Flush Sy (01/09/21 00:45) Ns (Ivpb) (Sodium Chloride 0.9% Ivpb Bag (01/09/21 00:45) Procalcitonin (Pct) (01/09/21 02:27) Ketorolac Injection (Toradol Injection) (01/09/21 02:30) Medications Given in ED Current Medications Medications Dose Ordered Sig/Maggie Route Start Time Stop Time Status Last Admin Dose Admin Iohexol 100 ml ONCE ONCE IV 01/09/21 00:45 01/09/21 00:47 DC 01/09/21 00:40 90 ML Ketorolac Tromethamine 15 mg ONCE ONCE IVP 01/09/21 02:30 01/09/21 02:31 DC 01/09/21 02:32 15 MG Sodium Chloride 10 ml NEEDED PRN IV 01/09/21 00:45 01/09/21 00:40 10 ML Sodium Chloride 100 ml ONCE ONCE IV 01/09/21 00:45 01/09/21 00:47 DC 01/09/21 00:40 80 ML Vital Signs/I&O 01/08/21 22:48 Temp 36.7 Pulse 134 Resp 26 B/P (MAP) 125/94 (104) Pulse Ox 100 Capillary Refill : Less Than 3 Seconds Blood Pressure Mean: 104 Progress Note : Time: 03:16 Progress Note Patient reevaluated, his heart rate is down to about 1 12-1 15 from the 130s to 140s. He is not nauseous or having vomiting. He is able to tolerate oral intake. Procalcitonin was 0.07. White count is normal. He is afebrile here. His chest x-ray and CT show multifocal consolidations consistent with Covid pneumonia. Secondary to his smoking status, homelessness I am going to go ahead and send antibiotics over to the [facility] pharmacy. Patient is strongly encouraged to follow-up with [facility] tomorrow. He is encouraged to quit smoking. He verbalized understanding. He looks much better than when he initially presented. Patient is stable for discharge. ECG Initial ECG Impression Date: Jan 08, 2021 Initial ECG Impression Time: 23:18 Initial ECG Rate: 129 Initial ECG Rhythm: S.Tach Initial ECG Intervals AR 131 QRS 139 QTc 472 Right bundle branch block Initial ECG Impression: Nonspecific Changes Diagnostic Imaging Diagonstic Imaging: Xray Plain Films/CT/US/NM/MRI: chest Comments Patchy bilateral infiltrates on chest x-ray CTA angiogram per [facility] No pulmonary embolism. COVID-19 pneumonia. Small right pleural effusion Counseling-Symptomatic: 3-10 Minutes Discussed Options Including: Group/Indiv Counseling Follow-up with PCP to: Discuss Further Options Departure Impression Primary Impression: Pneumonia due to COVID-19 virus Disposition: HOME, SELF-CARE Condition: Stable Departure-Patient Inst. Decision time for Depature: 02:51 Referrals: [facility] (PCP) Primary Care Physician HECTOR MEMBRENO MD (Family) Primary Care Physician Patient Instructions: COVID-19 ED Add. Discharge Instructions: Drink plenty of fluids to stay well-hydrated. I have given you prescriptions for antibiotics as you are 2 weeks out of your Covid diagnosis. This will cover you for any bacterial component of your pneumonia. Use your inhaler 2 puffs every 4-6 hours as needed for shortness of breath. [facility] Come back to the emergency room for any new, concerning or emergent complaints. Scripts Azithromycin (Azithromycin) 250 Mg Tablet 250 MG PO UD, #6 TAB TAKE 2 TABLETS ON DAY ONE THEN TAKE 1 TABLET DAILY FOR FOUR MORE DAYS Prov: ELLYN ROMERO MD 01/09/21 Cefdinir (Cefdinir) 300 Mg Capsule 300 MG PO BID, #14 CAP 0 Refills Prov: ELLYN ROMERO MD 01/09/21 ELLYN ROEMRO MD Jan 08, 2021 23:18
[2021-01-08 23:38] LABS: BASOPHILS # (AUTO) 0.1 10^3/uL (0.0-0.1); BASOPHILS % (AUTO) 1 % (0-10); EOSINOPHILS # (AUTO) 0.1 10^3/uL (0.0-0.3); EOSINOPHILS % (AUTO) 1 % (0-10); HEMATOCRIT 39 % (40-54); HEMOGLOBIN 12.5 g/dL (13.3-17.7); LYMPHOCYTES # (AUTO) 1.2 10^3/uL (1.0-4.0); LYMPHOCYTES % (AUTO) 11 % (12-44); MEAN CORPUSCULAR HEMOGLOBIN 30 pg (25-34); MEAN CORPUSCULAR HGB CONC 32 g/dL (32-36); MEAN CORPUSCULAR VOLUME 92 fL (80-99); MEAN PLATELET VOLUME 9.9 fL (9.0-12.2); MONOCYTES % (AUTO) 9 % (0-12); NEUTROPHILS # (AUTO) 8.3 10^3/uL (1.8-7.8); NEUTROPHILS % (AUTO) 78 % (42-75); PLATELET COUNT 280 10^3/uL (130-400); WHITE BLOOD COUNT 10.7 10^3/uL (4.3-11.0)
[2021-01-08 23:48] LABS: CHLORIDE 102 MMOL/L (98-107); POTASSIUM 4.6 MMOL/L (3.6-5.0); SODIUM 135 MMOL/L (135-145)
[2021-01-08 23:50] LABS: GLUCOSE 128 MG/DL (70-105)
[2021-01-08 23:51] LABS: CARBON DIOXIDE 18 MMOL/L (21-32)
[2021-01-08 23:54] LABS: CREATININE SERUM 1.16 MG/DL (0.60-1.30); GFR ESTIMATED 67
[2021-01-08 23:55] LABS: BUN/CREATININE RATIO 18
[2021-01-08 23:56] LABS: CREATINE KINASE 89 U/L (30-200)
[2021-01-09] MEDS ORDERED: HOLD METFORMIN - RECEIVED CONTRAST 20 ML VIAL IV SCH (00:45)
[2021-01-09] MEDS ORDERED: CATHETER FLUSH 10 ML SYR IV PRN (00:45)
[2021-01-09] MEDS ORDERED: IOHEXOL 350 MG/ML 100 ML (OMNIPAQUE 350) VIAL IV ONE (00:45)
[2021-01-09] MEDS ORDERED: NS 100 ML (IVPB) BAG IV ONE (00:45)
[2021-01-09] MEDS ORDERED: KETOROLAC 30 MG/ML VIAL IVP ONE (02:30)
[2021-01-09] MEDS ORDERED: AZIT250T12 PO (02:53)
[2021-01-09] MEDS ORDERED: CEFD300C3 PO (02:53)
[2021-01-09 03:17] VITALS: BP 110/82
--- NOTE | 2021-01-09 06:18 | Diagnostic Imaging Report ---
PROCEDURE: CT angiography of the chest with contrast. TECHNIQUE: Multiple contiguous axial images were obtained through the chest after uneventful bolus administration of intravenous contrast. 3D reconstructed CTA MIP acquisitions were also performed. Auto Exposure Controls were utilized during the CT exam to meet ALARA standards for radiation dose reduction. INDICATION: Shortness of air, cough, congestion Pulmonary arterial branches are well opacified, widely patent. No filling defect, no PE. There are substantial bilateral patchy five lobe groundglass infiltrates given the history compatible with multifocal bilateral Covid pneumonia. There is a unilateral right pleural effusion nonloculated layering to a depth of 2 cm. Heart size upper limits but no pericardial effusion. There is no pneumothorax. Visualized upper abdomen showed no acute finding. No lung mass or suspicious lymph nodes. Pulmonary venous structures are mildly prominent and the component of failure or hypervolemia superimposed could not be excluded. IMPRESSION: 1. No evidence of PE. 2. Multifocal groundglass infiltrates compatible with the provided history of Covid. 3. Small right pleural effusion. There is cardiomegaly and mild vascular congestion; a component of failure or hypervolemia superimposed could not be excluded. Dictated by: Dictated on workstation # [id number]
--- NOTE | 2021-01-09 07:08 | Diagnostic Imaging Report ---
INDICATION: Pain COMPARISON: 12/23/2020 There are bilateral infiltrates consistent with pneumonia. Disease having progressed in severity in the periphery of the right upper lobe. Heart size upper limits but stable. No effusion or pneumothorax. IMPRESSION: Bilateral infiltrates showed mild progression at the level of the right upper lobe. Dictated by: Dictated on workstation # [id number]
== END 2021-01-09 03:21 | disposition home or self-care (01) ==
LOC: EDUNIT# 22:40 → ER 22:44
DX: U07.1 COVID-19 (principal); J12.82 Pneumonia due to coronavirus disease 2019; I50.9 Heart failure, unspecified; F17.210 Nicotine dependence, cigarettes, uncomplicated; Z79.82 Long term (current) use of aspirin; Z79.01 Long term (current) use of anticoagulants
CPT/HCPCS: 36415; 71045; 71275; 80048; 82550; 84145; 84484; 85025; 93005

== ENCOUNTER 2021-01-21 16:09 | Inpatient (IN) | payer SELFPAY ==
[~2021-01-21] VITALS: Ht 187 cm; Wt 93.0 kg
[~2021-01-21 16:09] MED LIST changes: +AZIT250T12 PO; +CEFD300C3 PO
[2021-01-21 16:36] LABS: BASOPHILS # (AUTO) 0.1 10^3/uL (0.0-0.1); BASOPHILS % (AUTO) 1 % (0-10); EOSINOPHILS # (AUTO) 0.1 10^3/uL (0.0-0.3); EOSINOPHILS % (AUTO) 1 % (0-10); HEMATOCRIT 43 % (40-54); HEMOGLOBIN 13.6 g/dL (13.3-17.7); LYMPHOCYTES # (AUTO) 1.7 10^3/uL (1.0-4.0); LYMPHOCYTES % (AUTO) 16 % (12-44); MEAN CORPUSCULAR HEMOGLOBIN 29 pg (25-34); MEAN CORPUSCULAR HGB CONC 31 g/dL (32-36); MEAN CORPUSCULAR VOLUME 93 fL (80-99); MEAN PLATELET VOLUME 10.2 fL (9.0-12.2); MONOCYTES # (AUTO) 0.9 10^3/uL (0.0-1.0); MONOCYTES % (AUTO) 9 % (0-12); NEUTROPHILS # (AUTO) 7.8 10^3/uL (1.8-7.8); NEUTROPHILS % (AUTO) 74 % (42-75); PLATELET COUNT 427 10^3/uL (130-400); WHITE BLOOD COUNT 10.6 10^3/uL (4.3-11.0)
[2021-01-21 17:04] LABS: ALBUMIN 3.2 GM/DL (3.2-4.5); POTASSIUM 4.4 MMOL/L (3.6-5.0)
--- NOTE | 2021-01-21 17:06 | Diagnostic Imaging Report ---
INDICATION: Chest pain, COVID. COMPARISON: 01/09/2021. FINDINGS: There are severe five-lobe infiltrates which on the left have progressed particularly in the upper lobe. The heart is enlarged, and there is some vascular congestion. A component of edema could not be excluded. IMPRESSION: Worsened five-lobe infiltrates, increased heart size, and mild vascular congestion. No pleural fluid. Dictated by: Dictated on workstation # [id number]
[2021-01-21 17:08] LABS: BILIRUBIN,TOTAL 1.1 MG/DL (0.1-1.0)
[2021-01-21 17:10] LABS: CREATININE SERUM 0.94 MG/DL (0.60-1.30)
[2021-01-21 17:16] LABS: ABG BASE EXCESS -4.2 MMOL/L (-2.5-2.5); ABG OXYGEN SATURATION 99 % (94-100); ABG PCO2 27 MMHG (35-45); ABG PH 7.46 (7.37-7.43); ABG PO2 100 MMHG (79-93); ABG TCO2 20.1 MMOL/L (21.0-31.0)
--- NOTE | 2021-01-21 17:33 | ED Respiratory ---
General Chief Complaint: Respiratory Problems Stated Complaint: CHEST PAIN / COVID POS Nursing Triage Note: PT ARRIVED PER EMS PT CO OF SOA AND LOWER ABD PAIN FROM COUGHING PT IS COVID + FROM 01/10 WHEN TESTED +. PT FROM [facility]. PT IS TACHY-HR 131. RR-43. SAT 95% ON 2L N/C PT HAS SL IN L AC #18 BY EMS. PT STATES IS HOMELESS Source: patient Exam Limitations: no limitations (ANN STRICKLAND APRN) History of Present Illness Date Seen by Provider: Jan 21, 2021 Time Seen by Provider: 16:00 Initial Comments 10-year-old male homeless methamphetamine user with ischemic cardiomyopathy status post cardioverter defibrillator placement and history of coronary stents presents to ER with shortness of breath and persistent cough. Heart rate is elevated at about 130. Respiratory rate is 30-40. Oxygen saturation is 95% on 2 L. He has been unable to take his aspirin Plavix or Lasix for several days. He is also Covid positive tested positive on 09 January he states. Timing/Duration: constant Severity: moderate Prior Episodes/Possible Cause: no prior episodes Associated Symptoms: cough, shortness of breath (ANN STRICKLAND APRN) Allergies and Home Medications Allergies Coded Allergies: No Known Drug Allergies (Unverified , 05/29/11) Home Medications Albuterol Sulfate 1 Puff Puff, 2 PUFF INH Q4H 1 PUFF = 90 MCG Prescribed by: SIN PERSAUD on 12/23/201626 Aspirin 81 Mg Tab.chew, 81 MG PO DAILY Prescribed by: MARGARITO IBANEZ on 12/10/20800 Azithromycin 250 Mg Tablet, 250 MG PO UD TAKE 2 TABLETS ON DAY ONE THEN TAKE 1 TABLET DAILY FOR FOUR MORE DAYS Prescribed by: ELLYN ROMERO on 01/09/21252 Cefdinir 300 Mg Capsule, 300 MG PO BID Prescribed by: ELLYN ROMERO on 01/09/21252 Dexamethasone 6 Mg Tablet, 6 MG PO DAILY Prescribed by: SIN PERSAUD on 12/23/201626 Furosemide 80 Mg Tablet, 80 MG PO DAILY Prescribed by: MARGARITO IBANEZ on 12/10/20 08 Lisinopril 10 Mg Tablet, 10 MG PO DAILY Prescribed by: MARGARITO IBANEZ on 12/10/20 08 Metoprolol Succinate 25 Mg Tab.er.24h, 25 MG PO DAILY, (Reported) Prasugrel HCl 10 Mg Tablet, 10 MG PO DAILY, (Reported) Spironolactone 25 Mg Tablet, 25 MG PO DAILY Prescribed by: MARGARITO IBANEZ on 12/10/20 0801 Patient Home Medication List Home Medication List Reviewed: Yes (ANN STRICKLAND APRN) Review of Systems Review of Systems Constitutional: see HPI; No chills, No fever EENTM: see HPI Respiratory: see HPI; No short of breath Cardiovascular: no symptoms reported Genitourinary: no symptoms reported Musculoskeletal: no symptoms reported Skin: no symptoms reported Psychiatric/Neurological: No Symptoms Reported Hematologic/Lymphatic: No Symptoms Reported Immunological/Allergic: no symptoms reported (ANN STRICKLAND APRN) Past Ubdlgxn-Gjndsl-Qujsja Hx Immunizations Up To Date Tetanus Booster (TDap): Unknown (ANN STRICKLAND APRN) Seasonal Allergies Seasonal Allergies: No (ANN STRICKLAND APRN) Past Medical History Surgery/Hospitalization HX: FOUR AR'S. 3 STENTS PLACED Surgeries: Yes (LEFT SHOULDER BICEPS TENDON, HEART STENTS 02/01/19) Orthopedic Respiratory: No Cardiac: Yes (heart failure) Cardiomyopathy, Coronary Artery Disease, Valvular Heart Disease Neurological: No Genitourinary: No Gastrointestinal: No Musculoskeletal: Yes (LEFT SHOULDER SURGERY) Endocrine: No HEENT: No Cancer: No Psychosocial: No Integumentary: No Blood Disorders: No (ANN STRICKLAND APRN) Family Medical History Diabetes mellitus 19 MOTHER, Onset:Unknown Myocardial infarction 19 MOTHER Heart Disease, Diabetes (ANN STRICKLAND APRN) Physical Exam Vital Signs - First Documented 01/21/21 16:49 Temp 36.0 Pulse 131 Resp 43 B/P (MAP) 124/94 (104) Pulse Ox 95 (OSBALDO MCKINLEY MD) Capillary Refill : Less Than 3 Seconds (ANN STRICKLAND APRN) Height: 6'2.00" Weight: 225lbs. 15.0oz. 102.288891sc; 28.00 BMI Method:Stated General Appearance: WD/WN, no apparent distress, other Eyes: Bilateral Eye Normal Inspection, Bilateral Eye PERRL, Bilateral Eye EOMI Neck: non-tender, full range of motion Respiratory: no respiratory distress, no accessory muscle use Cardiovascular: no murmur, tachycardia Gastrointestinal: normal bowel sounds, non tender, soft Extremities: normal range of motion, non-tender Neurologic/Psychiatric: alert, normal mood/affect, oriented x 3 Skin: normal color, warm/dry (ANN STRICKLAND APRN) Progress/Results/Core Measures Suspected Sepsis SIRS Temperature: Pulse: 131 Respiratory Rate: 43 Laboratory Tests 01/21/21 16:11: White Blood Count 10.6 Blood Pressure 124 /94 Mean: 104 Laboratory Tests 01/21/21 16:11: Creatinine 0.94, Platelet Count 427H, Total Bilirubin 1.1H (ANN STRICKLAND APRN) Results/Orders Lab Results Laboratory Tests Test 01/21/21 16:11 01/21/21 17:05 Range/Units White Blood Count 10.6 4.3-11.0 10^3/uL Red Blood Count 4.69 4.30-5.52 10^6/uL Hemoglobin 13.6 13.3-17.7 g/dL Hematocrit 43 40-54 % Mean Corpuscular Volume 93 80-99 fL Mean Corpuscular Hemoglobin 29 25-34 pg Mean Corpuscular Hemoglobin Concent 31 L 32-36 g/dL Red Cell Distribution Width 17.8 H 10.0-14.5 % Platelet Count 427 H 130-400 10^3/uL Mean Platelet Volume 10.2 9.0-12.2 fL Immature Granulocyte % (Auto) 1 % Neutrophils (%) (Auto) 74 42-75 % Lymphocytes (%) (Auto) 16 12-44 % Monocytes (%) (Auto) 9 0-12 % Eosinophils (%) (Auto) 1 0-10 % Basophils (%) (Auto) 1 0-10 % Neutrophils # (Auto) 7.8 1.8-7.8 10^3/uL Lymphocytes # (Auto) 1.7 1.0-4.0 10^3/uL Monocytes # (Auto) 0.9 0.0-1.0 10^3/uL Eosinophils # (Auto) 0.1 0.0-0.3 10^3/uL Basophils # (Auto) 0.1 0.0-0.1 10^3/uL Immature Granulocyte # (Auto) 0.1 0.0-0.1 10^3/uL D-Dimer 3.61 H 0.00-0.49 UG/ML Sodium Level 138 135-145 MMOL/L Potassium Level 4.4 3.6-5.0 MMOL/L Chloride Level 106 98-107 MMOL/L Carbon Dioxide Level 20 L 21-32 MMOL/L Anion Gap 12 5-14 MMOL/L Blood Urea Nitrogen 17 7-18 MG/DL Creatinine 0.94 0.60-1.30 MG/DL Estimat Glomerular Filtration Rate 85 BUN/Creatinine Ratio 18 Glucose Level 146 H 70-105 MG/DL Calcium Level 9.0 8.5-10.1 MG/DL Corrected Calcium 9.6 8.5-10.1 MG/DL Total Bilirubin 1.1 H 0.1-1.0 MG/DL Aspartate Amino Transf (AST/SGOT) 32 5-34 U/L Alanine Aminotransferase (ALT/SGPT) 54 0-55 U/L Alkaline Phosphatase 98 40-136 U/L Troponin I < 0.028 <0.028 NG/ML B-Type Natriuretic Peptide 1384.5 H <100.0 PG/ML Total Protein 7.0 6.4-8.2 GM/DL Albumin 3.2 3.2-4.5 GM/DL Procalcitonin 0.07 <0.10 NG/ML Blood Gas Puncture Site RGHT RAD Blood Gas Patient Temperature 36 Arterial Blood pH 7.46 H 7.37-7.43 Arterial Blood Partial Pressure CO2 27 L 35-45 MMHG Arterial Blood Partial Pressure O2 100 H 79-93 MMHG Arterial Blood HCO3 19 L 23-27 MMOL/L Arterial Blood Total CO2 20.1 L 21.0-31.0 MMOL/L Arterial Blood Oxygen Saturation 99 94-100 % Arterial Blood Base Excess -4.2 L -2.5-2.5 MMOL/L Chris Test POS Blood Gas Ventilator Setting NO Blood Gas Inspired Oxygen ROOM AIR (OSBALDO MCKINLEY MD) Medications Given in ED Current Medications Medications Dose Ordered Sig/Maggie Route Start Time Stop Time Status Last Admin Dose Admin Furosemide 40 mg ONCE ONCE IVP 01/21/21 17:45 01/21/21 17:46 DC 01/21/21 18:15 40 MG Iohexol 100 ml ONCE ONCE IV 01/21/21 18:15 01/21/21 18:16 DC 01/21/21 18:35 81 ML Sodium Chloride 100 ml ONCE ONCE IV 01/21/21 18:15 01/21/21 18:16 DC 01/21/21 18:35 80 ML (OSBALDO MCKINLEY MD) Vital Signs/I&O 01/21/21 16:49 Temp 36.0 Pulse 131 Resp 43 B/P (MAP) 124/94 (104) Pulse Ox 95 (OSBALDO MCKINLEY MD) Vital Signs/I&O Capillary Refill : Less Than 3 Seconds (ANN STRICKLAND APRN) Blood Pressure Mean: 104 Departure Communication (Admissions) Family Conversation NAME: YURIY MARTINI REC#: [id number] PT STATUS: REG ER : 1970 PHYSICIAN: ANN STRICKLAND APRN ADMIT DATE: 01/21/21/ER Signed Date of Exam:01/21/21 CT ANGIO CHEST W EXAMINATION: CT angiography of the chest. TECHNIQUE: Contrast enhanced thin section helical images were obtained through the chest with intravenous contrast timed for the optimal opacification of the arterial structures per CTA protocol. Post-processing, reconstructions and interpretation of angiographic images of the vessels was performed. 3D MIP reconstructions were performed and reviewed. All CT scans use one or more of the following dose optimizing techniques: automated exposure control, MA and/or KvP adjustment based on patient size and exam type or iterative reconstruction. HISTORY: Dyspnea, Covid. COMPARISON: CTA chest 01/09/2021. FINDINGS: Vascular: No filling defects within the pulmonary arteries. Thoracic aorta is normal in caliber. Calcification of the aorta and coronary vessels. Thyroid: The thyroid is normal. Mediastinum: Heart size is mildly enlarged with a small pericardial effusion. There are a few prominent mediastinal lymph nodes which are not pathologically enlarged. Lungs and airways: There is a large right pleural effusion. Patchy groundglass opacities throughout both lungs. No pneumothorax. The airways are normal. Upper abdomen: There is mild gallbladder wall thickening or pericholecystic fluid. Musculoskeletal: No suspicious osseous lesion or compression fracture. IMPRESSION: 1. No findings of pulmonary embolus. 2. Large right pleural effusion. 3. Patchy groundglass opacities throughout both lungs compatible with history of Covid 19 pneumonia. Dictated by: Dictated on workstation # [id number] Dict: 01/21/21 1836 Trans: 01/21/[address] [facility] [id number] Interpreted by: MATILDA DONALD DO Electronically signed by: MATILDA DONALD DO 01/21/21 1850 NAME: YURIY MARTINI [facility] REC#: [id number] PT STATUS: REG ER : 1970 PHYSICIAN: ANN STRICKLAND APRN ADMIT DATE: 01/21/21/ER Signed Date of Exam:01/21/21 CHEST 1 VIEW, AP/PA ONLY INDICATION: Chest pain, COVID. COMPARISON: 01/09/2021. FINDINGS: There are severe five-lobe infiltrates which on the left have progressed particularly in the upper lobe. The heart is enlarged, and there is some vascular congestion. A component of edema could not be excluded. IMPRESSION: Worsened five-lobe infiltrates, increased heart size, and mild vascular congestion. No pleural fluid. Dictated by: Dictated on workstation # [id number] Dict: 01/21/211701 Trans: 01/21/211707 [id number] Interpreted by: UGO HASKINS Electronically signed by: UGO HASKINS 01/21/211707 (ANN STRICKLAND APRN) Impression Primary Impression: Pneumonia due to COVID-19 virus Additional Impressions: S/P ICD (internal cardiac defibrillator) procedure Acute on chronic heart failure Disposition: ADMITTED INPATIENT Condition: Stable Admissions Decision to Admit Reason: Admit from ER (General) Decision to Admit/Date: Jan 21, 2021 Time/Decision to Admit Time: 18:56 (ANN STRICKLAND APRN) Departure-Patient Inst. Referrals: [facility] [place]) Primary Care Physician HECTOR MEMBRENO MD (Family) Primary Care Physician ATTENDING PHYSICIAN NOTE: I was physically present as attending physician in the emergency department during the care of this patient, but I was not directly involved in the decision making or delivery of care for this patient. (OSBALDO MCKINLEY MD) ANN STRICKLAND APRN Jan 21, 2021 17:33 OSBALDO MCKINLEY MD Jan 21, 2021 22:59
[2021-01-21 17:41] LABS: ALLENS TEST POS; INSPIRED O2 ROOM AIR; PATIENT TEMP 36; VENTILATOR NO
[2021-01-21] MEDS ORDERED: FUROSEMIDE 40 MG/4 ML INJ (LASIX) IVP ONE (17:45)
[2021-01-21] MEDS ORDERED: HOLD METFORMIN - RECEIVED CONTRAST 20 ML VIAL IV SCH (18:15)
[2021-01-21] MEDS ORDERED: NS 100 ML (IVPB) BAG IV ONE (18:15)
[2021-01-21] MEDS ORDERED: IOHEXOL 350 MG/ML 100 ML (OMNIPAQUE 350) VIAL IV ONE (18:15)
--- NOTE | 2021-01-21 18:42 | Diagnostic Imaging Report ---
EXAMINATION: CT angiography of the chest. TECHNIQUE: Contrast enhanced thin section helical images were obtained through the chest with intravenous contrast timed for the optimal opacification of the arterial structures per CTA protocol. Post-processing, reconstructions and interpretation of angiographic images of the vessels was performed. 3D MIP reconstructions were performed and reviewed. All CT scans use one or more of the following dose optimizing techniques: automated exposure control, MA and/or KvP adjustment based on patient size and exam type or iterative reconstruction. HISTORY: Dyspnea, Covid. COMPARISON: CTA chest 01/09/2021. FINDINGS: Vascular: No filling defects within the pulmonary arteries. Thoracic aorta is normal in caliber. Calcification of the aorta and coronary vessels. Thyroid: The thyroid is normal. Mediastinum: Heart size is mildly enlarged with a small pericardial effusion. There are a few prominent mediastinal lymph nodes which are not pathologically enlarged. Lungs and airways: There is a large right pleural effusion. Patchy groundglass opacities throughout both lungs. No pneumothorax. The airways are normal. Upper abdomen: There is mild gallbladder wall thickening or pericholecystic fluid. Musculoskeletal: No suspicious osseous lesion or compression fracture. IMPRESSION: 1. No findings of pulmonary embolus. 2. Large right pleural effusion. 3. Patchy groundglass opacities throughout both lungs compatible with history of Covid 19 pneumonia. Dictated by: Dictated on workstation # [id number]
[2021-01-21] MEDS ORDERED: PRASUGREL 10 MG (EFFIENT) TABLET PO SCH (18:45)
[2021-01-21] MEDS ORDERED: ASPIRIN 81 MG CHEW (CHILDREN'S ASA) PO ONE (18:45)
[2021-01-21 19:40] LABS: BENZODIAZEPINES SCREEN URINE NEGATIVE (NEGATIVE)
[2021-01-21 19:41] LABS: AMPHETAMINE SCREEN, URINE NEGATIVE (NEGATIVE); BARBITURATE SCREEN URINE NEGATIVE (NEGATIVE); CANNABINOID SCREEN, URINE NEGATIVE (NEGATIVE); COCAINE SCREEN URINE NEGATIVE (NEGATIVE); METHADONE STAT NEGATIVE (NEGATIVE); METHAMPHETAMINE SCREEN URINE S NEGATIVE (NEGATIVE); OPIATE SCREEN URINE NEGATIVE (NEGATIVE); OXYCODONE STAT NEGATIVE (NEGATIVE); PROPOXYPHENE STAT NEGATIVE (NEGATIVE); TRICYCLIC ANTIDEPRESSANTS SCRE NEGATIVE (NEGATIVE)
[2021-01-21 20:47] VITALS: BP 124/94
--- NOTE | 2021-01-21 21:06 | Tele-ICU Progress Note ---
Progress Note 50M CAD s/p MIx4, PCI with stent x3, ICM EF 35-40% (echo 12/08/20) s/p AICD, methapmphetamine user diagnosed with COVID December 23 after presenting with 2 days hemoptysis and positive COVID in roomates. He was discharged from ER with dexamethasone and abuterol. Seen again in ED 01/08 for progressive dyspnea. Was tachycardic in the 130s-140s and tachypneic, SpO2 100% RA. He was discharged from the ER with azithromycin, cefdinir. Returns today with SOB, low abd pain that he attributes to coughing. Patient transferred by EMS from [facility], on arrival HR 130s, RR 30-40. SpO2 95% on 2L. Has been unable to take ASA, plavix or lasix for several days. CTA negative for PE. Diffuse patchy ground glass and a large right pleural effusion. Chest XR with progressive diffuse infiltrates. - No evidence of bacterial infection at this time, procal remains negative. Will send cultures. Suspect related to complications of COVID vs component of heart failure. Lasix given in ER. Requiring 3L NC. Restart cardiac meds. Focused Exam Height, Weight, BMI Height: 6'2.00" Weight: 225lbs. 15.0oz. 102.540263ex; 28.59 BMI Method:Stated FLORINA MICHAEL MD Jan 21, 2021 21:06
[2021-01-21] MEDS ORDERED: acetaZOLAMIDE INJECTION 250 MG in SYRINGE-IVPB 1 SYRINGE IV SCH (21:15)
[2021-01-21 22:12] LABS: BILIRUBIN,URINE NEGATIVE (NEGATIVE); CLARITY,URINE CLEAR; COLOR,URINE YELLOW; GLUCOSE, URINE (UA) NEGATIVE (NEGATIVE); KETONES,URINE NEGATIVE (NEGATIVE); LEUKOCYTE ESTERASE ,URINE NEGATIVE (NEGATIVE); NITRITE,URINE NEGATIVE (NEGATIVE); PROTEIN,URINE NEGATIVE (NEGATIVE)
[2021-01-21 22:19] LABS: BACTERIA,URINE NEGATIVE /HPF
[2021-01-22 04:50] LABS: BASOPHILS # (AUTO) 0.1 10^3/uL (0.0-0.1); BASOPHILS % (AUTO) 1 % (0-10); EOSINOPHILS # (AUTO) 0.1 10^3/uL (0.0-0.3); EOSINOPHILS % (AUTO) 1 % (0-10); HEMATOCRIT 40 % (40-54); HEMOGLOBIN 12.7 g/dL (13.3-17.7); LYMPHOCYTES # (AUTO) 1.7 10^3/uL (1.0-4.0); LYMPHOCYTES % (AUTO) 19 % (12-44); MEAN CORPUSCULAR HEMOGLOBIN 30 pg (25-34); MEAN CORPUSCULAR HGB CONC 31 g/dL (32-36); MEAN CORPUSCULAR VOLUME 95 fL (80-99); MEAN PLATELET VOLUME 10.2 fL (9.0-12.2); MONOCYTES # (AUTO) 0.8 10^3/uL (0.0-1.0); MONOCYTES % (AUTO) 9 % (0-12); NEUTROPHILS # (AUTO) 6.4 10^3/uL (1.8-7.8); NEUTROPHILS % (AUTO) 70 % (42-75); PLATELET COUNT 350 10^3/uL (130-400); WHITE BLOOD COUNT 9.2 10^3/uL (4.3-11.0)
[2021-01-22 05:02] LABS: CALCIUM 8.9 MG/DL (8.5-10.1)
[2021-01-22 05:07] LABS: PHOSPHORUS 3.7 MG/DL (2.3-4.7)
[2021-01-22 05:09] LABS: MAGNESIUM 1.9 MG/DL (1.6-2.4)
[2021-01-22] MEDS ORDERED: POTASSIUM CL 10MEQ/50ML IVPB 50 ML IV SCH (06:00)
[2021-01-22] MEDS ORDERED: KCL 20 MEQ TAB (K-DUR) PO SCH (06:00)
[2021-01-22] MEDS ORDERED: MAGNESIUM 1 GM/100 ML IVPB 100 ML IV SCH (06:00)
[2021-01-22] MEDS: dexAMETHasone 6 MG TAB (DECADRON) PO SCH (06:17)
[2021-01-22] MEDS: RT-ALBUTEROL HFA 8.5 GM INHALER IH SCH ×5 (06:56→23:12)
[2021-01-22] MEDS ORDERED: ACETAZOLAMIDE IV ONE ×2 (08:00)
--- NOTE | 2021-01-22 08:12 | Consultation-Cardiology ---
HPI-Cardiology Cardiology Consultation: Date of Consultation 01/22/21 Time Seen by a Provider: 08:15 Date of Admission 01-21-21 Attending Physician Edith Portillo DO Admitting Physician [facility] Consulting Physician Peter Luna MD HPI: Chief Complaint: CHF Mr. Renteria is a 50 yr old male admitted to ICU 7 from the ED with increasing SOB, cough and gen malaise. He was found to be COVID (+). He reports he has not been able to afford any of his medications except Effient. He reports he has not taken any other medications for at least a month. He denies any CP or palpitations. He denies any device discharges. He denies any LE swelling. He states he has not smoked cigs, marijuana or methamphetamines for at least a month. He states he feels better this morning. Review of Systems-Cardiology Review of Systems Constitutional: No chills, No fever; malaise Eyes: No vision change Ears/Nose/Throat: No epistaxis, No recent hearing loss Respiratory: As described under HPI Cardiovascular: As described under HPI Gastrointestinal: No constipation, No diarrhea, No nausea, No vomiting Genitourinary: No dysuria, No hematuria Musculoskeletal: no symptoms reported Skin: No rash on exposed areas, No ulcerations on exposed areas Psychiatric/Neurological: anxiety, depression; No seizure, No focal weakness Hematologic: No bleeding abnormalities GIK-Mjriij-Mviecb Hx Patient Social History Smoking Status: Unknown if Ever Smoked 2nd Hand Smoke Exposure: Yes Have you traveled recently?: No Alcohol Use?: No Substance type: Amphetamines, Marijuana Pt feels they are or have been: No Immunizations Up To Date Tetanus Booster (TDap): Unknown Past Medical History PMH As described under Assessment. Family Medical History Family Medical History: Fam h/o DM II No fam h/o early CAD or SCD Family History: Diabetes mellitus 19 MOTHER, Onset:Unknown Myocardial infarction 19 MOTHER Allergies and Home Medications Allergies Coded Allergies: No Known Drug Allergies (Unverified , 05/29/11) Home Medications Albuterol Sulfate 1 Puff Puff, 2 PUFF INH Q4H 1 PUFF = 90 MCG Prescribed by: SIN PERSAUD on 12/23/20 1627 Aspirin 81 Mg Tab.chew, 81 MG PO DAILY Prescribed by: MARGARITO IBANEZ on 12/10/20 0801 Azithromycin 250 Mg Tablet, 250 MG PO UD TAKE 2 TABLETS ON DAY ONE THEN TAKE 1 TABLET DAILY FOR FOUR MORE DAYS Prescribed by: ELLYN ROMERO on 01/09/21252 Cefdinir 300 Mg Capsule, 300 MG PO BID Prescribed by: ELLYN ROMERO on 01/09/21252 Dexamethasone 6 Mg Tablet, 6 MG PO DAILY Prescribed by: SIN PERSAUD on 12/23/201626 Furosemide 80 Mg Tablet, 80 MG PO DAILY Prescribed by: MARGARITO IBANEZ on 12/10/20800 Lisinopril 10 Mg Tablet, 10 MG PO DAILY Prescribed by: MARGARITO IBANEZ on 12/10/20800 Metoprolol Succinate 25 Mg Tab.er.24h, 25 MG PO DAILY, (Reported) Prasugrel HCl 10 Mg Tablet, 10 MG PO DAILY, (Reported) Spironolactone 25 Mg Tablet, 25 MG PO DAILY Prescribed by: MARGARITO IBANEZ on 12/10/20800 Physical Exam-Cardiology Physical Exam Vital Signs/I&O 01/21/21 01/21/21 01/21/21 01/21/21 20:47 21:00 22:00 23:00 Temp 36.0 Pulse 131 121 116 114 B/P (MAP) 104/85 (91) 95/80 (85) 101/78 (86) Pulse Ox 95 97 98 94 O2 Delivery Nasal Cannula Nasal Cannula Nasal Cannula O2 Flow Rate 3.00 3.00 3.00 01/21/21 01/22/21 01/22/21 01/22/21 23:59 00:00 00:00 01:00 Temp 36.0 Pulse 113 117 B/P (MAP) 109/84 (92) 109/78 (88) Pulse Ox 98 94 95 O2 Delivery Nasal Cannula Nasal Cannula Nasal Cannula O2 Flow Rate 3.00 3.00 3.00 01/22/21 01/22/21 01/22/21 01/22/21 01:00 02:00 03:00 04:00 Pulse 114 112 121 107 B/P (MAP) 112/87 (95) 110/82 (91) 101/81 (88) Pulse Ox 90 99 97 O2 Delivery Nasal Cannula Nasal Cannula Nasal Cannula O2 Flow Rate 3.00 3.00 3.00 01/22/21 01/22/21 01/22/21 01/22/21 04:00 04:00 05:00 06:00 Temp 36.0 Pulse 121 112 B/P (MAP) 122/89 (100) 111/84 (93) Pulse Ox 98 92 97 O2 Delivery Nasal Cannula Nasal Cannula Nasal Cannula O2 Flow Rate 3.00 3.00 3.00 01/22/21 01/22/21 01/22/21 06:56 07:00 07:38 Temp 36.9 Pulse 114 Pulse Ox 97 O2 Delivery Nasal Cannula O2 Flow Rate 3.00 01/22/21 00:00 Intake Total 100 ml Output Total 300 ml Balance -200 ml Capillary Refill : Less Than 3 Seconds Constitutional: AAO x 3, well-developed, well-nourished HEENT: PERRL, hearing is well preserved, oral hygience is good Neck: No carotid bruit; carotid pulses are 2 + bilaterally Respiratory: No accessory muscle use, No respiratory distress; chest expansion is symmetric, chest is bilaterally symmetric, rhonchi (scattered; diminished lower lobes bilat) Cardiovascular: tachycardia, systolic murmur Gastrointestinal: No tender; soft, round, audible bowel sounds Extremities: no lower extremity edema bilateral Neurologic/Psychiatric: grossly intact (moves all extremities) Skin: No rash on exposed areas, No ulcerations on exposed areas Data Review Labs Laboratory Tests 01/21/21 16:11: White Blood Count 10.6, Red Blood Count 4.69, Hemoglobin 13.6, Hematocrit 43, Mean Corpuscular Volume 93, Mean Corpuscular Hemoglobin 29, Mean Corpuscular Hemoglobin Concent 31L, Red Cell Distribution Width 17.8H, Platelet Count 427H, Mean Platelet Volume 10.2, Immature Granulocyte % (Auto) 1, Neutrophils (%) (Auto) 74, Lymphocytes (%) (Auto) 16, Monocytes (%) (Auto) 9, Eosinophils (%) (Auto) 1, Basophils (%) (Auto) 1, Neutrophils # (Auto) 7.8, Lymphocytes # (Auto) 1.7, Monocytes # (Auto) 0.9, Eosinophils # (Auto) 0.1, Basophils # (Auto) 0.1, Immature Granulocyte # (Auto) 0.1, D-Dimer 3.61H, Sodium Level 138, Potassium Level 4.4, Chloride Level 106, Carbon Dioxide Level 20L, Anion Gap 12, Blood Urea Nitrogen 17, Creatinine 0.94, Estimat Glomerular Filtration Rate 85, BUN/Creatinine Ratio 18, Glucose Level 146H, Calcium Level 9.0, Corrected Calcium 9.6, Total Bilirubin 1.1H, Aspartate Amino Transf (AST/SGOT) 32, Alanine Aminotransferase (ALT/SGPT) 54, Alkaline Phosphatase 98, Troponin I < 0.028, B- Type Natriuretic Peptide 1384.5H, Total Protein 7.0, Albumin 3.2, Procalcitonin 0.07 01/21/21 17:05: Blood Gas Puncture Site RGHT RAD, Blood Gas Patient Temperature 36, Arterial B lood pH 7.46H, Arterial Blood Partial Pressure CO2 27L, Arterial Blood Partial Pressure O2 100H, Arterial Blood HCO3 19L, Arterial Blood Total CO2 20.1L, Arterial Blood Oxygen Saturation 99, Arterial Blood Base Excess -4.2L, Chris Test POS, Blood Gas Ventilator Setting NO, Blood Gas Inspired Oxygen ROOM AIR 01/21/21 19:24: Urine Color YELLOW, Urine Clarity CLEAR, Urine pH 5.0, Urine Specific [place] 1.010L, Urine Protein NEGATIVE, Urine Glucose (UA) NEGATIVE, Urine Ketones NEGAT AVTAR, Urine Nitrite NEGATIVE, Urine Bilirubin NEGATIVE, Urine Urobilinogen 0.2, Urine Leukocyte Esterase NEGATIVE, Urine RBC (Auto) TRACE-I, Urine RBC NONE, Urine WBC NONE, Urine Squamous Epithelial Cells NONE, Urine Renal Epithelial Cells NONE, Urine Crystals NONE, Urine Bacteria NEGATIVE, Urine Casts NONE, Urine Mucus NEGATIVE, Urine Culture Indicated NO, Urine Opiates Screen NEGATIVE, Urine Oxycodone Screen NEGATIVE, Urine Methadone Screen NEGATIVE, Urine Propoxyphene Screen NEGATIVE, Urine Barbiturates Screen NEGATIVE, Ur Tricyclic Antidepressants Screen NEGATIVE, Urine Phencyclidine Screen NEGATIVE, Urine Amphetamines Screen NEGATIVE, Urine Methamphetamines Screen NEGATIVE, Urine Benzodiazepines Screen NEGATIVE, Urine Cocaine Screen NEGATIVE, Urine Canna binoids Screen NEGATIVE 01/22/21 04:20: White Blood Count 9.2, Red Blood Count 4.25L, Hemoglobin 12.7L, Hematocrit 40, Mean Corpuscular Volume 95, Mean Corpuscular Hemoglobin 30, Mean Corpuscular Hemoglobin Concent 31L, Red Cell Distribution Width 17.9H, Platelet Count 350, Mean Platelet Volume 10.2, Immature Granulocyte % (Auto) 1, Neutrophils (%) (Auto) 70, Lymphocytes (%) (Auto) 19, Monocytes (%) (Auto) 9, Eosinophils (%) (Auto) 1, Basophils (%) (Auto) 1, Neutrophils # (Auto) 6.4, Lymphocytes # (Auto) 1.7, Monocytes # (Auto) 0.8, Eosinophils # (Auto) 0.1, Basophils # (Auto) 0.1, Immature Granulocyte # (Auto) 0.1, Sodium Level 141, Potassium Level 4.0, Chloride Level 106, Carbon Dioxide Level 21, Anion Gap 14, Blood Urea Nitrogen 16, Creatinine 1.00, Estimat Glomerular Filtration Rate 79, BUN/Creatinine Ratio 16, Glucose Level 108H, Calcium Level 8.9, Phosphorus Level 3.7, Magnesium Level 1.9 [facility] [id number] PT STATUS: REG ER : 1970 PHYSICIAN: ANN STRICKLAND APRN ADMIT DATE: 01/21/21/ER Signed Date of Exam:01/21/21 CHEST 1 VIEW, AP/PA ONLY INDICATION: Chest pain, COVID. COMPARISON: 01/09/2021. FINDINGS: There are severe five-lobe infiltrates which on the left have progressed particularly in the upper lobe. The heart is enlarged, and there is some vascular congestion. A component of edema could not be excluded. IMPRESSION: Worsened five-lobe infiltrates, increased heart size, and mild vascular congestion. No pleural fluid. Dictated by: Dictated on workstation # [id number] Dict: 01/21/211701 Trans: 01/21/211707 [id number] Interpreted by: UGO HASKINS Electronically signed by: UGO HASKINS 01/21/218 NAME: LIANETYURIY S [employer] REC#: [id number] PT STATUS: REG ER : 1970 PHYSICIAN: ANN STRICKLAND APRN ADMIT DATE: 01/21/21/ER Signed Date of Exam:01/21/21 CT ANGIO CHEST W EXAMINATION: CT angiography of the chest. TECHNIQUE: Contrast enhanced thin section helical images were obtained through the chest with intravenous contrast timed for the optimal opacification of the arterial structures per CTA protocol. Post-processing, reconstructions and interpretation of angiographic images of the vessels was performed. 3D MIP reconstructions were performed and reviewed. All CT scans use one or more of the following dose optimizing techniques: automated exposure control, MA and/or KvP adjustment based on patient size and exam type or iterative reconstruction. HISTORY: Dyspnea, Covid. COMPARISON: CTA chest 01/09/2021. FINDINGS: Vascular: No filling defects within the pulmonary arteries. Thoracic aorta is normal in caliber. Calcification of the aorta and coronary vessels. Thyroid: The thyroid is normal. Mediastinum: Heart size is mildly enlarged with a small pericardial effusion. There are a few prominent mediastinal lymph nodes which are not pathologically enlarged. Lungs and airways: There is a large right pleural effusion. Patchy groundglass opacities throughout both lungs. No pneumothorax. The airways are normal. Upper abdomen: There is mild gallbladder wall thickening or pericholecystic fluid. Musculoskeletal: No suspicious osseous lesion or compression fracture. IMPRESSION: 1. No findings of pulmonary embolus. 2. Large right pleural effusion. 3. Patchy groundglass opacities throughout both lungs compatible with history of Covid 19 pneumonia. Dictated by: Dictated on workstation # [id number] Dict: 01/21/21 1836 Trans: 01/21/21 185 [facility] [id number] Interpreted by: MATILDA DONALD DO Electronically signed by: MATLIDA DONALD DO 01/21/21 185 ECG Impression ECG Initial ECG Rhythm: S.Tach A/P-Cardiology Assessment/Admission Diagnosis COVID (+) Acute on chronic systolic CHF S/P Single chamber defibrillator implantation on 10-30-2019. Functioning normally on interrogation of 12-08-20 CAD: - H/o MN in late Jan 2019 (see below) - Card cath on 02/01/19: Coronary artery disease consisting of complete ostial occlusion of the left anterior descending artery to which successful percutaneous coronary intervention was carried out. Following deployment of Alpine Xience 2.75 x 18 mm stent, there is no significant residual stenosis. A large obtuse marginal of the left circumflex shows 80% bifurcation stenosis in its distal portion. Right coronary artery is dominant and has mild disease. Elevated left ventricular end-diastolic pressure. Well preserved global left ventricular systolic function with ejection fraction approximately 55%. - Repeat intervention on 02-07-[address] Almaraz: balloon angioplasty to the ostium and proximal LAD with slow flow in the LAD with reestablishment of flow and good results. Mild disease in the circumflex and right coronary artery Dilated left ventricle with anterior wall hypokinesia to akinesia, estimated ejection fracti on 30% Ischemic cardiomyopathy. - Echo on 02/04/19: LVEF 40-45%, anteroseptal hypokinesis, mild conc LVH, RVSP 20 mmHg. LVEF 30% on cardiac cath of 02-07-19. - Echo of May 25, 2019 showed LVEF 30-35% - Echo of 12-08-20 showed LVEF 35-40%, mod to severe MR; mod TR; PASP 40-45 mmHg Mod to severe MR - per echo of 12-08-20 Hyperlipidemia, not taking any medication Tobaccoism, educated on smoking cessation (reports no usage in a month) Continued methamphetamine use - cessation advised (reports no usage in a month) Continued marijuana use - cessation advised (reports no usage in a month) H/O noncompliance with medications and f/u Discussion and Recomendations Complex management issue d/t non-compliance with medications, instructions and f/u Management of COVID pneumonia is per medical/eICU services Start BB and POLA (-) Start diuretics Monitor lab Replace electrolytes as indicated Start ASA Continue Effient d/t recent coronary intervention Echocardiogram today Again stressed with patient the importance of compliance with medications, cessation of methamphetamine use, cessation of marijuana use and cigs He verbalizes understanding and states he will comply We would like to thank medical services for this consult Further recs will be based on his hospital course Clinical Quality Measures Smoking Cessation Counseling: Counseling-Symptomatic: 3-10 Minutes Discussed Options Including: Group/Indiv Counseling MARGARITO IBANEZ Jan 22, 2021 08:12
[2021-01-22] MEDS: FUROSEMIDE 40 MG/4 ML INJ (LASIX) IVP SCH (09:08)
[2021-01-22] MEDS: PRASUGREL 10 MG (EFFIENT) TABLET PO SCH (09:18)
[2021-01-22] MEDS: ENOXAPARIN 40 MG/0.4 ML (LOVENOX) SYR SC SCH (09:18)
[2021-01-22] MEDS: ASPIRIN E.C. 81 MG (ECOTRIN) TAB PO SCH (09:18)
[2021-01-22] MEDS: lisINopril 5 MG (PRINIVIL) TABLET PO SCH (09:18)
--- NOTE | 2021-01-22 11:07 | Tele-ICU Progress Note ---
Subjective Date Seen by a Provider: Jan 22, 2021 Time Seen by a Provider: 09:30 Subjective/Events-last exam This virtual visit was conducted using real time audio/video. Thank you for asking us to see this patient for respiratory insufficiency and distress due to AECHF.. HPC: Recent events: Much improved. PE: VSS O2 97-99 % on 3 L NC. HEENT: No obvious masses, adenopathy or JVD. Chest: clear to auscultation. CV: RRR S1 S2 Systolic murmur. Abd: Non-tender. Bowel sounds Y. : Unremarkable. Love N. TOURS CAPTAIN/psychiatric: Alert and oriented, grossly intact. No obvious focal findings. Extremities: No edema. Capillary refill < 3 seconds. Skin: unremarkable. Results: Elevated BNP 1384.5. CXR w B infilts, moderate to large R pleural eff. A/P: Respiratory insufficiency/distress: Better. Consider floor transfer if OK w Cards/Hospitalist Available chart/ vitals / labs / Images reviewed. Video assessment done using teleICU camera, rest of exam as per RN. Respiratory: Continue present management, weaning O2 as chris.. Discussed with CHRISTOPH Bernstein. Asked RN to reach out to eICU if any questions or concerns later. Time spent with patient/coordination of care with other health professionals (mins): 20. Sepsis Event Evaluation Height, Weight, BMI Height: 6'2.00" Weight: 225lbs. 15.0oz. 102.537642bx; 28.59 BMI Method:Stated Exam Exam Patient acknowledged, consented, and participated in this virtual visit which was conducted using real time audio/video Vital Signs Date Time Temp Pulse Resp B/P (MAP) Pulse Ox O2 Delivery O2 Flow Rate FiO2 01/22/21 10:00 112 114/86 (95) 95 Nasal Cannula 3.00 01/22/21 09:00 112 113/81 (92) 84 Nasal Cannula 3.00 01/22/21 08:00 97 Nasal Cannula 3.00 01/22/21 08:00 112 114/88 (97) 90 Nasal Cannula 3.00 01/22/21 07:38 36.9 01/22/21 07:00 114 123/84 (97) 93 Nasal Cannula 3.00 01/22/21 07:00 114 01/22/21 06:56 97 Nasal Cannula 3.00 01/22/21 06:00 112 111/84 (93) 97 Nasal Cannula 3.00 01/22/21 05:00 121 122/89 (100) 92 Nasal Cannula 3.00 01/22/21 04:00 98 Nasal Cannula 3.00 01/22/21 04:00 36.0 01/22/21 04:00 107 101/81 (88) 97 Nasal Cannula 3.00 01/22/21 03:00 121 110/82 (91) 99 Nasal Cannula 3.00 01/22/21 02:00 112 112/87 (95) 90 Nasal Cannula 3.00 01/22/21 01:00 114 01/22/21 01:00 117 109/78 (88) 95 Nasal Cannula 3.00 01/22/21 00:00 36.0 01/22/21 00:00 113 109/84 (92) 94 Nasal Cannula 3.00 01/21/21 23:59 98 Nasal Cannula 3.00 01/21/21 23:00 114 101/78 (86) 94 Nasal Cannula 3.00 01/21/21 22:00 116 95/80 (85) 98 Nasal Cannula 3.00 01/21/21 21:00 121 104/85 (91) 97 Nasal Cannula 3.00 01/21/21 20:47 36.0 131 95 01/21/21 20:11 125 01/21/21 20:00 35.9 128 25 107/86 (93) 97 Nasal Cannula 3.00 01/21/21 19:57 117 30 118/85 95 Nasal Cannula 01/21/21 16:49 36.0 131 43 124/94 (104) 95 I & O 01/22/21 07:00 Intake Total 650 ml Output Total 1050 ml Balance -400 ml Height & Weight Height: 6'2.00" Weight: 225lbs. 15.0oz. 102.736374gl; 28.59 BMI Method:Stated General Appearance: No Apparent Distress (see free text) Capillary Refill: Less Than 3 Seconds Peripheral Pulses: 1+ Dorsalis Pedis (R), 1+ Left Dors-Pedis (L) (see free text) Gastrointestinal: normal bowel sounds, non tender, soft Results Lab Laboratory Tests 01/21/21 16:11 01/22/21 04:20 Assessment/Plan Assessment/Plan See free text Time spent on discussion(mins): 5 SARAH ZAMBRANO MD Jan 22, 2021 11:06
--- NOTE | 2021-01-22 11:10 | Diagnostic Imaging Report ---
INDICATION: COVID infection and effusion. TECHNIQUE: Portable AP view of the chest is obtained. FINDINGS: Since the study one day earlier, patchy bilateral airspace disease has not significantly changed. There is no evidence of pneumothorax. No definite pleural fluid is seen. IMPRESSION: Bilateral airspace disease has not significantly changed. Dictated by: Dictated on workstation # [id number]
--- NOTE | 2021-01-22 12:20 | History & Physical-Hospitalist ---
ROSEY AMBROSIO MED STUDENT 01/22/21 1220: History of Present Illness HPI/Chief Complaint Moo Renteria is a 50 year old white male who presented to [facility] clinic yesterday with complaints of worsening SOB, lower abdominal pain, cough and malaise. Was subsequently sent to via [facility] emergency department ED. In the ED he was tachycardic and tachypneic. Reports testing positive for COVID-19 on January 10. Has not been COVID-19 vaccinated. States he was seen recently and did not obtain scripts that were sent to pharmacy as he could not afford them. Also reports that he hasn't been taking any off his prescribed home medications as he cannot afford them, including prasgurel. PMH is significant for multiple ND's, coronary stents, cardiomyopathy, systolic HF, valvular heart disease, s/p cardioverter/defibrillator, methamphetamine use, tobacco abuse, and marijuana use. Currently he denies SOB, chest pain, palpitations, dizziness, nausea, vomiting, fevers, and diarrhea. He reports last using meth and marijuana approximately one month ago. CT angio chest was done and was negative for PE, did show groundglass opacities bilaterally consistent with COVID-19 PNA. Subsequently was admitted to ICU for further management. Source: patient, EMS notes reviewed Exam Limitations: no limitations Date Seen 01/22/21 Time Seen by a Provider: 09:00 Attending Physician Edith Portillo DO [facility] Referring Physician Date of Admission Jan 21, 2021 at 19:00 Home Medications & Allergies Home Medications Reviewed patient Home Medication Reconciliation performed by pharmacy medication reconciliations video technician and/or nursing. Patients Allergies have been reviewed. Allergies Allergies Coded Allergies No Known Drug Allergies (Ufjqnyrpeg19/17/11) Past Cnnraqj-Dynarh-Awftfx Hx Patient Social History Marrital Status: single Employed/Student: unemployed (homeless) Tobacco Use?: No Smoking Status: Former Smoker (claims to have quit one month ago) Smokeless Tobacco Frequency: Never a User Use of E-Cig and/or Vaping dev: No Substance use?: Yes Substance type: Amphetamines (last used meth one month ago), Methamphetamine, Marijuana (last used one month ago) Additional substance use comme: HX BUT UA NEGATIVE THIS ADMIT Alcohol Use?: No (denies use) Pt feels they are or have been: No Immunizations Up To Date Tetanus Booster (TDap): Unknown Seasonal Allergies Seasonal Allergies: No Current Status Advance Directives: No Communicates: Verbally Primary Language: Stateless Preferred Spoken Language: Stateless Is interpretation needed?: No Implanted or Applied Medical D: Implantable cardioverter Past Medical History Surgeries: Defibrillator (implantable cardioverter/defib) Currently Using CPAP: No Currently Using BIPAP: No Cardiomyopathy, Coronary Artery Disease, Heart Attack, Valvular Heart Disease Sexually Transmitted Disease: No HIV/AIDS: No Are Your Blood Sugars Over 250: No Loss of Vision: Denies Hearing Impairment: Denies Blood Disorders: No Family Medical History Diabetes mellitus 19 MOTHER, Onset:Unknown Myocardial infarction 19 MOTHER Heart Disease, Diabetes Review of Systems Constitutional: No chills, No diaphoresis, No dizziness, No fever; malaise; No weight loss EENTM: dental problems (poor dentition); No hearing loss, No ear pain, No blurred vision, No mouth swelling Respiratory: No cough, No dyspnea on exertion, No short of breath Cardiovascular: No chest pain, No edema, No palpitations, No syncope Gastrointestinal: No abdominal pain, No constipation, No diarrhea, No hematemesis, No loss of appetite, No melena, No nausea, No vomiting Genitourinary: No discharge, No dysuria, No frequency, No hematuria Musculoskeletal: No back pain, No joint pain Skin: No change in color, No change in hair/nails; dryness (lower extrem) Psychiatric/Neurological: Denies Anxiety, Denies Depressed, Denies Numbness, Denies Paresthesia, Denies Tingling Physical Exam Physical Exam Vital Signs Vital Signs - First Documented 01/21/21 01/21/21 01/21/21 16:49 19:57 20:00 Temp 36.0 Pulse 131 Resp 43 B/P (MAP) 124/94 (104) Pulse Ox 95 O2 Delivery Nasal Cannula O2 Flow Rate 3.00 Capillary Refill : Less Than 3 Seconds Height, Weight, BMI Height: 6'2.00" Weight: 225lbs. 15.0oz. 102.838780ll; 28.59 BMI Method:Stated General Appearance: No Apparent Distress, Chronically ill Eyes: Bilateral Eye PERRL, Bilateral Eye EOMI HEENT: PERRL/EOMI, Moist Mucous Membranes Neck: Full Range of Motion, Normal Inspection, Non Tender Respiratory: Chest Non Tender, No Accessory Muscle Use, No Respiratory Distress, Decreased Breath Sounds Cardiovascular: Regular Rate, Rhythm, No Edema, Normal Peripheral Pulses Gastrointestinal: Normal Bowel Sounds, Non Tender, Soft; No Distended, No Guarding, No Rebound, No Tenderness Rectal: Deferred Back: Normal Inspection, No CVA Tenderness, No Vertebral Tenderness Extremity: Normal Capillary Refill, Non Tender, No Calf Tenderness, No Pedal Edema Neurologic/Psychiatric: Alert, Oriented x3, Normal Mood/Affect Skin: Warm/Dry Lymphatic: No Adenopathy Results Results/Procedures Labs Laboratory Tests 01/21/21 16:11 01/22/21 04:20 Patient resulted labs reviewed. Assessment/Plan Admission Diagnosis COVID-19 PNA Acute on chronic systolic HF Admission Status: Inpatient Order (span 2 midnights) Reason for Inpatient Admission: Medical managemnt for COVID-19 PNA oxgyen therapy Assessment and Plan COVID-19 PNA -chest xray worsened 5 lobe infiltrates -CT angio chest negative for PE, groundglass opacities consistent with COVID-19 PNA -albuterol nebs -decadron -titrate oxygen to keep sat's >90 Acute on Chronic Systolic HF -BNP of 1384 -cardiology following -lasix -continue to monitor CAD s/p cardiac cath's multiple stents placed -cardiology following -prasugrel Ischemic cardiomyopathy. -last echo 12-08-20 showed LVEF of 35-40% -order new echo today Mod to severe MR - per echo of 12-08-20 -monitor H/O multiple ND's -cardiology following DVT ppx -lovenox HLP -monitor Polysubstance abuse -uds negative -encouraged continued abstinence Tobacco use -encouraged continued abstinence History of medication noncompliance -stressed importance of being compliant with meds and followup Clinical Quality Measures Smoking Cessation Counseling: Counseling-Symptomatic: 3-10 Minutes Discussed Options Including: Group/Indiv Counseling EDITH PORTILLO DO 01/23/21 0509: History of Present Illness HPI/Chief Complaint CC: SOB HPI: This is a 50yoWM hx of CAD defibrillator placement at October of last year who presented with SOB found to have Covid on 01/09/21. He was found to have a right pleural effusion and having no significant issues but he was placed on protocol. He will be moved down to 4th floor. Source: patient Exam Limitations: no limitations Past Frrhzvu-Hiqagr-Qqqslr Hx Patient Social History Marrital Status: single Employed/Student: unemployed (homeless) Smoking Status: Former Smoker (claims to have quit one month ago) Current Status Implanted or Applied Medical D: Implantable cardioverter Past Medical History Surgeries: Defibrillator (implantable cardioverter/defib) Cardiomyopathy, Coronary Artery Disease, Heart Attack, Valvular Heart Disease Family Medical History Diabetes mellitus 19 MOTHER, Onset:Unknown Myocardial infarction 19 MOTHER Review of Systems Constitutional: see HPI Respiratory: cough, dyspnea on exertion Physical Exam Physical Exam General Appearance: No Apparent Distress, Chronically ill HEENT: Normal ENT Inspection Respiratory: No Accessory Muscle Use, No Respiratory Distress, Decreased Breath Sounds Cardiovascular: Regular Rate, Rhythm Neurologic/Psychiatric: Alert, Oriented x3 Assessment/Plan Admission Diagnosis Assessment: COVID-19 pneumonia CAD Cardiomyopathy Former meth use Valvular heart disease Plan: Transfer to fourth floor Oxygen Protocol meds Admission Status: Inpatient Order (span 2 midnights) Reason for Inpatient Admission: COVID-19 Supervisory-Addendum Brief Verification & Attestation Participated in pt care: history, MDM, physical Personally performed: exam, history, MDM, supervision of care Care discussed with: Medical Student Procedures: n/a Results interpretation: Verified all documentation Verification and Attestation of Medical Student E/M Service A medical student performed and documented this service in my presence. I reviewed and verified all information documented by the medical student and made modifications to such information, when appropriate. I personally performed the physical exam and medical decision making. Edith Portillo, Jan 23, 2021,05:07 ROSEY AMBROSIO MED STUDENT Jan 22, 2021 12:20 EDITH PORTILLO DO Jan 23, 2021 05:09
--- NOTE | 2021-01-22 18:31 | Consultation-Cardiology ---
HPI-Cardiology Cardiology Consultation: Date of Consultation 01/22/21 Time Seen by a Provider: 09:30 Date of Admission Attending Physician Edith Portillo DO Admitting Physician [place] Consulting Physician ALETHEA ALMAZAN MD, MA, FACP, FACC, [facility] Physician requesting consult: Dr. Portillo HPI: Chief Complaint: CHF Mr. Renteria is a 50 yr old male admitted to ICU 7 from the ED with increasing SOB, cough and gen malaise. He was found to be COVID (+). He reports he has not been able to afford any of his medications except Effient. He reports he has not taken any other medications for at least a month. He denies any CP or palpitations. He denies any device discharges. He denies any LE swelling. He states he has not smoked cigs, marijuana or methamphetamines for at least a month. He states he feels better this morning. Review of Systems-Cardiology Review of Systems Constitutional: No chills, No fever; malaise Eyes: No vision change Ears/Nose/Throat: No epistaxis, No recent hearing loss Respiratory: As described under HPI Cardiovascular: As described under HPI Gastrointestinal: No constipation, No diarrhea, No nausea, No vomiting Genitourinary: No dysuria, No hematuria Musculoskeletal: no symptoms reported Skin: No rash on exposed areas, No ulcerations on exposed areas Psychiatric/Neurological: anxiety, depression; No seizure, No focal weakness Hematologic: No bleeding abnormalities TDR-Fwtzym-Ciquno Hx Patient Social History Marrital Status: single Employed/Student: unemployed (homeless) Smoking Status: Former Smoker (claims to have quit one month ago) 2nd Hand Smoke Exposure: Yes Have you traveled recently?: No Alcohol Use?: No (denies use) Substance type: Amphetamines (last used meth one month ago), Methamphetamine, Marijuana (last used one month ago) Pt feels they are or have been: No Immunizations Up To Date Tetanus Booster (TDap): Unknown Past Medical History PMH As described under Assessment. Family Medical History Family Medical History: Fam h/o DM II No fam h/o early CAD or SCD Family History: Diabetes mellitus 19 MOTHER, Onset:Unknown Myocardial infarction 19 MOTHER Allergies and Home Medications Allergies Coded Allergies: No Known Drug Allergies (Unverified , 05/29/11) Home Medications Prasugrel HCl 10 Mg Tablet, 10 MG PO DAILY, (Reported) LAST FILLED 12-06-2020 #30 DAY SUPPLY Last Action: Reviewed Patient Home Medication List Home Medication List Reviewed: Yes Physical Exam-Cardiology Physical Exam Vital Signs/I&O 01/22/21 01/22/21 01/22/21 01/22/21 06:56 07:00 07:00 07:38 Temp 36.9 Pulse 114 114 B/P (MAP) 123/84 (97) Pulse Ox 97 93 O2 Delivery Nasal Cannula Nasal Cannula O2 Flow Rate 3.00 3.00 01/22/21 01/22/21 01/22/21 01/22/21 08:00 08:00 09:00 10:00 Pulse 112 112 112 B/P (MAP) 114/88 (97) 113/81 (92) 114/86 (95) Pulse Ox 90 97 84 95 O2 Delivery Nasal Cannula Nasal Cannula Nasal Cannula Nasal Cannula O2 Flow Rate 3.00 3.00 3.00 3.00 01/22/21 01/22/21 01/22/21 01/22/21 11:00 11:00 11:56 12:00 Temp 35.4 Pulse 112 B/P (MAP) 120/73 (89) Pulse Ox 95 94 98 O2 Delivery Nasal Cannula Nasal Cannula Nasal Cannula O2 Flow Rate 3.00 3.00 3.00 01/22/21 01/22/21 01/22/21 01/22/21 12:00 13:00 13:00 14:00 Pulse 112 106 118 112 B/P (MAP) 110/79 (89) 107/81 (90) 99/84 (89) Pulse Ox 96 95 97 O2 Delivery Nasal Cannula Nasal Cannula Nasal Cannula O2 Flow Rate 3.00 3.00 3.00 01/22/21 01/22/21 01/22/21 01/22/21 15:33 15:51 16:00 16:00 Pulse 107 B/P (MAP) 106/74 (85) Pulse Ox 98 91 94 O2 Delivery Nasal Cannula Nasal Cannula Nasal Cannula Nasal Cannula O2 Flow Rate 1.00 1.00 1.00 1.00 01/22/21 16:01 Temp 35.7 01/22/21 00:00 Intake Total 100 ml Output Total 300 ml Balance -200 ml Capillary Refill : Less Than 3 Seconds Constitutional: AAO x 3, well-developed, well-nourished HEENT: PERRL, hearing is well preserved, oral hygience is good Neck: No carotid bruit; carotid pulses are 2 + bilaterally Respiratory: No accessory muscle use, No respiratory distress; chest expansion is symmetric, chest is bilaterally symmetric, rhonchi (scattered; diminished lower lobes bilat) Cardiovascular: tachycardia, systolic murmur Gastrointestinal: No tender; soft, round, audible bowel sounds Extremities: no lower extremity edema bilateral Neurologic/Psychiatric: grossly intact (moves all extremities) Skin: No rash on exposed areas, No ulcerations on exposed areas Data Review Labs Laboratory Tests 01/21/21 19:24: Urine Color YELLOW, Urine Clarity CLEAR, Urine pH 5.0, Urine Specific Bartley 1.010L, Urine Protein NEGATIVE, Urine Glucose (UA) NEGATIVE, Urine Ketones NEGATIVE, Urine Nitrite NEGATIVE, Urine Bilirubin NEGATIVE, Urine Urobilinogen 0.2, Urine Leukocyte Esterase NEGATIVE, Urine RBC (Auto) TRACE-I, Urine RBC NONE, Urine WBC NONE, Urine Squamous Epithelial Cells NONE, Urine Renal Epithelial Cells NONE, Urine Crystals NONE, Urine Bacteria NEGATIVE, Urine Casts NONE, Urine Mucus NEGATIVE, Urine Culture Indicated NO, Urine Opiates Screen NEGATIVE, Urine Oxycodone Screen NEGATIVE, Urine Methadone Screen NEGATIVE, Urine Propoxyphene Screen NEGATIVE, Urine Barbiturates Screen NEGATIVE, Ur Tricyclic Antidepressants Screen NEGATIVE, Urine Phencyclidine Screen NEGATIVE, Urine Amphetamines Screen NEGATIVE, Urine Methamphetamines Screen NEGATIVE, Urine Benzodiazepines Screen NEGATIVE, Urine Cocaine Screen NEGATIVE, Urine Cannabinoids Screen NEGATIVE 01/22/21 04:20: White Blood Count 9.2, Red Blood Count 4.25L, Hemoglobin 12.7L, Hematocrit 40, Mean Corpuscular Volume 95, Mean Corpuscular Hemoglobin 30, Mean Corpuscular Hemoglobin Concent 31L, Red Cell Distribution Width 17.9H, Platelet Count 350, Mean Platelet Volume 10.2, Immature Granulocyte % (Auto) 1, Neutrophils (%) (Auto) 70, Lymphocytes (%) (Auto) 19, Monocytes (%) (Auto) 9, Eosinophils (%) (Auto) 1, Basophils (%) (Auto) 1, Neutrophils # (Auto) 6.4, Lymphocytes # (Auto) 1.7, Monocytes # (Auto) 0.8, Eosinophils # (Auto) 0.1, Basophils # (Auto) 0.1, Immature Granulocyte # (Auto) 0.1, Sodium Level 141, Potassium Level 4.0, Chloride Level 106, Carbon Dioxide Level 21, Anion Gap 14, Blood Urea Nitrogen 16, Creatinine 1.00, Estimat Glomerular Filtration Rate 79, BUN/Creatinine Ratio 16, Glucose Level 108H, Calcium Level 8.9, Phosphorus Level 3.7, Magnesium Level 1.9 Microbiology 01/21/21 Blood Culture - Preliminary, Resulted No growth 01/21/21 MRSA Screen - Final, Complete MRSA not isolated 01/21/21 Urine Culture - Final, Complete Gram Pos Mixed Bacterial Erika A/P-Cardiology Assessment/Admission Diagnosis COVID (+) Acute on chronic systolic CHF S/P Single chamber defibrillator implantation on 10-30-2019. Functioning normally on interrogation of 12-08-20 CAD: - H/o RI in late Jan 2019 (see below) - Card cath on 02/01/19: Coronary artery disease consisting of complete ostial occlusion of the left anterior descending artery to which successful percutaneous coronary intervention was carried out. Following deployment of Alpine Xience 2.75 x 18 mm stent, there is no significant residual stenosis. A large obtuse marginal of the left circumflex shows 80% bifurcation stenosis in its distal portion. Right coronary artery is dominant and has mild disease. Elevated left ventricular end-diastolic pressure. Well preserved global left ventricular systolic function with ejection fraction approximately 55%. - Repeat intervention on 02-07-[address] Almaraz: balloon angioplasty to the ostium and proximal LAD with slow flow in the LAD with reestablishment of flow and good results. Mild disease in the circumflex and right coronary artery Dilated left ventricle with anterior wall hypokinesia to akinesia, estimated ejection fraction 30% Ischemic cardiomyopathy. - Echo on 02/04/19: LVEF 40-45%, anteroseptal hypokinesis, mild conc LVH, RVSP 20 mmHg. LVEF 30% on cardiac cath of 02-07-19. - Echo of May 25, 2019 showed LVEF 30-35% - Echo of 12-08-20 showed LVEF 35-40%, mod to severe MR; mod TR; PASP 40-45 mmHg Mod to severe MR - per echo of 12-08-20 Hyperlipidemia, not taking any medication Tobaccoism, educated on smoking cessation (reports no usage in a month) Continued methamphetamine use - cessation advised (reports no usage in a month) Continued marijuana use - cessation advised (reports no usage in a month) H/O noncompliance with medications and f/u Discussion and Recomendations Complex management issue d/t non-compliance with medications, instructions and f/u Management of COVID pneumonia is per medical/eICU services Start BB and POLA (-) Start diuretics Monitor lab Replace electrolytes as indicated Start ASA Continue Effient d/t recent coronary intervention Echocardiogram today Again stressed with patient the importance of compliance with medications, cessation of methamphetamine use, cessation of marijuana use and cigs He verbalizes understanding and states he will comply We would like to thank medical services for this consult Further recs will be based on his hospital course Clinical Quality Measures Smoking Cessation Counseling: Counseling-Symptomatic: 3-10 Minutes Discussed Options Including: Group/Indiv Counseling Physician Assessment Physician Assessment Note: Pt seen together with Miguelito Tucker APRN, Cardiology [employer] ALETHEA ALMAZAN MD FACP FAC [facility] Jan 22, 2021 18:31
[2021-01-22] MEDS: RT-ALBUTEROL HFA 8.5 GM INHALER IH PRN (20:27)
[2021-01-22] MEDS ORDERED: DOCUSATE SODIUM 100 MG (COLACE) CAP PO PRN (21:15)
[2021-01-22] MEDS ORDERED: ONDANSETRON 4 MG/2 ML (SDV) Z0FRAN IVP PRN (21:15)
[2021-01-22] MEDS ORDERED: MELATONIN 3 MG TABLET PO PRN (21:15)
[2021-01-22] MEDS ORDERED: LOPERAMIDE 2 MG (IMODIUM) TABLET PO PRN (21:15)
[2021-01-22] MEDS ORDERED: ACETAMINOPHEN 500 MG TAB (TYLENOL) PO PRN (21:15)
[2021-01-22] MEDS ORDERED: diphenhydrAMINE 25 MG TAB (BENADRYL) PO PRN (21:15)
[2021-01-22] MEDS ORDERED: CALCIUM CARBONATE 500 MG (TUMS) TAB.CHEW PO PRN (21:15)
[2021-01-23] MEDS: RT-ALBUTEROL HFA 8.5 GM INHALER IH SCH ×4 (03:31→20:02)
[2021-01-23 04:35] LABS: BASOPHILS % (AUTO) 0 % (0-10); EOSINOPHILS % (AUTO) 0 % (0-10); HEMATOCRIT 39 % (40-54); HEMOGLOBIN 12.2 g/dL (13.3-17.7); LYMPHOCYTES # (AUTO) 0.9 10^3/uL (1.0-4.0); LYMPHOCYTES % (AUTO) 9 % (12-44); MEAN CORPUSCULAR HEMOGLOBIN 30 pg (25-34); MEAN CORPUSCULAR HGB CONC 31 g/dL (32-36); MEAN CORPUSCULAR VOLUME 96 fL (80-99); MEAN PLATELET VOLUME 10.1 fL (9.0-12.2); MONOCYTES # (AUTO) 0.7 10^3/uL (0.0-1.0); MONOCYTES % (AUTO) 7 % (0-12); NEUTROPHILS # (AUTO) 7.8 10^3/uL (1.8-7.8); NEUTROPHILS % (AUTO) 83 % (42-75); PLATELET COUNT 333 10^3/uL (130-400); WHITE BLOOD COUNT 9.4 10^3/uL (4.3-11.0)
[2021-01-23 04:51] LABS: CALCIUM 8.9 MG/DL (8.5-10.1)
[2021-01-23 04:52] LABS: TOTAL PROTEIN 6.3 GM/DL (6.4-8.2)
[2021-01-23 04:54] LABS: BILIRUBIN,TOTAL 0.7 MG/DL (0.1-1.0)
[2021-01-23 04:56] LABS: CREATININE SERUM 0.87 MG/DL (0.60-1.30)
[2021-01-23] MEDS: dexAMETHasone 6 MG TAB (DECADRON) PO SCH (06:16)
[2021-01-23] MEDS: FUROSEMIDE 40 MG/4 ML INJ (LASIX) IVP SCH (10:42)
[2021-01-23] MEDS: PRASUGREL 10 MG (EFFIENT) TABLET PO SCH (10:43)
[2021-01-23] MEDS: SENNA W/DOCUSATE (SENOKOT S) TABLET PO SCH ×2 (10:43→21:22)
[2021-01-23] MEDS: ASPIRIN E.C. 81 MG (ECOTRIN) TAB PO SCH (10:43)
[2021-01-23] MEDS: ENOXAPARIN 40 MG/0.4 ML (LOVENOX) SYR SC SCH (10:43)
[2021-01-23] MEDS: lisINopril 5 MG (PRINIVIL) TABLET PO SCH (10:43)
--- NOTE | 2021-01-23 11:54 | Progress Note - Hospitalist ---
ROSEY AMBROSIO MED STUDENT 01/23/21 1154: Subjective HPI/CC On Admission Date Seen by Provider: Jan 23, 2021 Time Seen by Provider: 08:00 CC: SOB HPI: This is a 50yoWM hx of CAD defibrillator placement at October of last year who presented with SOB found to have Covid on 01/09/21. He was found to have a right pleural effusion and having no significant issues but he was placed on protocol. He will be moved down to 4th floor. Subjective/Events-last exam Patient reports being agitated this morning. He wants to be immediately transferred over to [facility] so they can replace his heart valve. He reports feeling mad that he's wearing the NC and he's not receiving oxygen through it at the present time. He says "If I don't get my heart valve surgery I'll just go kill myself." Patient denies having a plan to commit suicide. He has no homicidal ideation. Denies chest pain, fevers, nausea, headache, and diarrhea. Reports mild exertional SOB. Review of Systems General: No Chills, No Night Sweats HEENT: No Head Aches, No Visual Changes Pulmonary: Dyspnea; No Cough, No Pleuritic Chest Pain Cardiovascular: No: Chest Pain, Palpitations, Orthopnea Gastrointestinal: No: Nausea, Vomiting, Abdominal Pain Genitourinary: No Dysuria, No Frequency, No Hematuria Musculoskeletal: No: neck pain, back pain Neurological: No: Weakness, Numbness Objective Exam Vital Signs Vital Signs Date Time Temp Pulse Resp B/P (MAP) Pulse Ox O2 Delivery O2 Flow Rate FiO2 01/23/21 10:54 99 Room Air 01/23/21 08:00 2.00 01/23/21 08:00 35.8 116 20 103/71 (82) Capillary Refill : Less Than 3 Seconds General Appearance: No Apparent Distress, Chronically ill HEENT: PERRL/EOMI, Moist Mucous Membranes Neck: Full Range of Motion, Normal Inspection, Non Tender Respiratory: Chest Non Tender, No Accessory Muscle Use, No Respiratory Distress, Decreased Breath Sounds Cardiovascular: Regular Rate, Rhythm, Normal Peripheral Pulses Gastrointestinal: Normal Bowel Sounds, Non Tender, Soft Rectal: Deferred Back: Normal Inspection, No Vertebral Tenderness Extremity: Normal Capillary Refill, Non Tender, No Calf Tenderness Neurologic/Psychiatric: Alert, Oriented x3, No Motor/Sensory Deficits, Other (agitated) Skin: Normal Color, Warm/Dry Lymphatic: No Adenopathy Results/Procedures Lab Laboratory Tests 01/23/21 04:00 Patient resulted labs reviewed. Assessment/Plan Assessment and Plan Assess & Plan/Chief Complaint COVID-19 PNA -chest xray worsened 5 lobe infiltrates -CT angio chest negative for PE, groundglass opacities consistent with COVID-19 PNA -albuterol nebs -decadron -titrate oxygen to keep sat's >90 Acute on Chronic Systolic HF -BNP of 1384 -cardiology following -lasix -continue to monitor CAD s/p cardiac cath's multiple stents placed -cardiology following -prasugrel Ischemic cardiomyopathy. -last echo 12-08-20 showed LVEF of 35-40% Mod to severe MR - per echo of 12-08-20 -monitor H/O multiple NC's -cardiology following DVT ppx -lovenox HLP -monitor Polysubstance abuse -uds negative -encouraged continued abstinence Tobacco use -encouraged continued abstinence History of medication noncompliance -stressed importance of being compliant with meds and followup Clinical Quality Measures Smoking Cessation Counseling: Counseling-Symptomatic: 3-10 Minutes Discussed Options Including: Group/Indiv Counseling EDITH HANKINS DO 01/24/21 0542: Subjective Subjective/Events-last exam Pt doing a lot better today Cant understand why he cant have valve surgery but he has Covid-19 Remains on O2 Feels pretty good otherwise Desats with activity Review of Systems General: Fatigue Pulmonary: Dyspnea Objective Exam General Appearance: No Apparent Distress, WD/WN, Chronically ill Respiratory: No Accessory Muscle Use, No Respiratory Distress, Decreased Breath Sounds Cardiovascular: Regular Rate, Rhythm Neurologic/Psychiatric: Alert, Oriented x3 Assessment/Plan Assessment and Plan Assess & Plan/Chief Complaint Supportive care Monitor oxygen Supervisory-Addendum Brief Verification & Attestation Participated in pt care: history, MDM, physical Personally performed: exam, history, MDM, supervision of care Care discussed with: Medical Student Procedures: n/a Results interpretation: Verified all documentation Verification and Attestation of Medical Student E/M Service A medical student performed and documented this service in my presence. I reviewed and verified all information documented by the medical student and made modifications to such information, when appropriate. I personally performed the physical exam and medical decision making. Edith Hankins, Jan 24, 2021,05:41 ROSEY AMBROSIO MED STUDENT Jan 23, 2021 11:54 EDITH HANKINS DO Jan 24, 2021 05:42
[2021-01-23 15:07] VITALS: BP 101/66
--- NOTE | 2021-01-23 18:26 | Progress Note - Cardiology ---
Cardiology SOAP Progress Note Subjective: Gen malaise and weakness Shortness of breath with mild exertion No cp or palp or syncope No n/v/d States has been clean of meth for more than two months Objective: I&O/Vital Signs 01/23/21 01/23/21 01/23/21 01/23/21 07:05 08:00 08:00 10:54 Temp 35.8 Pulse 116 Resp 20 B/P (MAP) 103/71 (82) Pulse Ox 99 97 99 O2 Delivery Room Air Room Air Nasal Cannula Room Air O2 Flow Rate 2.00 01/23/21 01/23/21 01/23/21 12:00 15:07 15:48 Temp 36.2 36.2 36.6 Pulse 113 113 109 Resp 20 18 B/P (MAP) 101/66 (78) 102/57 (72) Pulse Ox 97 97 99 O2 Delivery Room Air Room Air FiO2 21 01/23/21 00:00 Intake Total 700 ml Output Total 475 ml Balance 225 ml Weight (Pounds): 225 Weight (Ounces): 15.0 Weight (Calculated Kilograms): 102.791935 Constitutional: AAO x 3, well-developed, well-nourished Respiratory: No accessory muscle use, No respiratory distress; chest expansion is symmetric, chest is bilaterally symmetric, rhonchi (scattered; diminished lower lobes bilat) Cardiovascular: tachycardia, systolic murmur Gastrointestional: No tender; soft, round, audible bowel sounds Extremities: no lower extremity edema bilateral Neurologic/Psychiatric: grossly intact (moves all extremities) Skin: No rash on exposed areas, No ulcerations on exposed areas Results/Procedures: Labs Laboratory Tests 01/23/21 04:00: White Blood Count 9.4, Red Blood Count 4.07L, Hemoglobin 12.2L, Hematocrit 39L, Mean Corpuscular Volume 96, Mean Corpuscular Hemoglobin 30, Mean Corpuscular Hemoglobin Concent 31L, Red Cell Distribution Width 17.4H, Platelet Count 333, Mean Platelet Volume 10.1, Immature Granulocyte % (Auto) 1, Neutrophils (%) (Auto) 83H, Lymphocytes (%) (Auto) 9L, Monocytes (%) (Auto) 7, Eosinophils (%) (Auto) 0, Basophils (%) (Auto) 0, Neutrophils # (Auto) 7.8, Lymphocytes # (Auto) 0.9L, Monocytes # (Auto) 0.7, Eosinophils # (Auto) 0.0, Basophils # (Auto) 0.0, Immature Granulocyte # (Auto) 0.1, Sodium Level 138, Potassium Level 4.0, Chloride Level 107, Carbon Dioxide Level 18L, Anion Gap 13, Blood Urea Nitrogen 21H, Creatinine 0.87, Estimat Glomerular Filtration Rate 93, BUN/Creatinine Ratio 24, Glucose Level 140H, Calcium Level 8.9, Corrected Calcium 9.7, Total Bilirubin 0.7, Aspartate Amino Transf (AST/SGOT) 30, Alanine Aminotransferase (ALT/SGPT) 44, Alkaline Phosphatase 94, Total Protein 6.3L, Albumin 3.0L Microbiology 01/21/21 Blood Culture - Preliminary, Resulted No growth 01/21/21 MRSA Screen - Final, Complete MRSA not isolated 01/21/21 Urine Culture - Final, Complete Gram Pos Mixed Bacterial Erika A/P: Assessment: Ac resp failure due to COVID pneumonia and CHF Covid pneumonia Acute on chronic systolic CHF S/P Single chamber defibrillator implantation on 10-30-2019. Functioning normally on interrogation of 12-08-20 CAD: - H/o DC in late Jan 2019 (see below) - Card cath on 02/01/19: Coronary artery disease consisting of complete ostial occlusion of the left anterior descending artery to which successful percutaneous coronary intervention was carried out. Following deployment of Alpine Xience 2.75 x 18 mm stent, there is no significant residual stenosis. A large obtuse marginal of the left circumflex shows 80% bifurcation stenosis in its distal portion. Right coronary artery is dominant and has mild disease. Elevated left ventricular end-diastolic pressure. Well preserved global left ventricular systolic function with ejection fraction approximately 55%. - Repeat intervention on 02-07-[address] Almaraz: balloon angioplasty to the ostium and proximal LAD with slow flow in the LAD with reestablishment of flow and good results. Mild disease in the circumflex and right coronary artery Dilated left ventricle with anterior wall hypokinesia to akinesia, estimated ejection fraction 30% - Last cardiac cath by Dr Almaraz on 09/17/20: Moderate to severe proximal and mid L AD, severe mid vessel disease of an OM, distal LAD fistula to the venous system / RV, dilated left ventricle with diffuse left ventricular hypokinesia ejection fraction 30% Ischemic cardiomyopathy. - Echo on 02/04/19: LVEF 40-45%, anteroseptal hypokinesis, mild conc LVH, RVSP 20 mmHg. LVEF 30% on cardiac cath of 02-07-19. - Echo of May 25, 2019 showed LVEF 30-35% - Echo of 12-08-20 showed LVEF 35-40%, mod to severe MR; mod TR; PASP 40-45 mmHg Transferred for consideration of CABG and repair of AV fistula and MV by Dr Almaraz to [facility] in September 2020. Not found to be a suitable candidate for any surgery due to continuing methamphetamine abuse Hyperlipidemia, by hx Tobaccoism, educated on smoking cessation (reports no usage in a month or two) Continued methamphetamine use - cessation advised (reports no usage in a month or two) Continued marijuana use - cessation advised (reports no usage in a month or two) H/O noncompliance with medications and f/u Plan: Very complex management due to multiple comorbidities and noncompliance (had not been taking any meds other than Effient at time of admission) Management of COVID pneumonia is per Medical/eICU services Increase diuretic. Add K. Monitor labs Titrate beta-cheryl and POLA-inhibitor as allowed by BP Continue DAPT Again stressed with patient the importance of compliance with medications, cessation of methamphetamine use, cessation of marijuana use and cigs Clinical Quality Measures Smoking Cessation Counseling: Counseling-Symptomatic: 3-10 Minutes Discussed Options Including: Group/Indiv Counseling ALETHEA ALMAZAN MD FACP FAC CCDS Jan 23, 2021 18:26
[2021-01-23] MEDS ORDERED: FUROSEMIDE 40 MG/4 ML INJ (LASIX) IVP NR (18:30)
[2021-01-23] MEDS: KCL 10 MEQ TAB (MICRO K) PO SCH (18:53)
[2021-01-24] MEDS: dexAMETHasone 6 MG TAB (DECADRON) PO SCH (06:14)
[2021-01-24] MEDS: FUROSEMIDE 40 MG/4 ML INJ (LASIX) IVP SCH ×2 (06:14→18:15)
[2021-01-24 07:26] LABS: BASOPHILS % (AUTO) 0 % (0-10); EOSINOPHILS % (AUTO) 0 % (0-10); HEMATOCRIT 43 % (40-54); HEMOGLOBIN 13.3 g/dL (13.3-17.7); LYMPHOCYTES # (AUTO) 1.1 10^3/uL (1.0-4.0); LYMPHOCYTES % (AUTO) 9 % (12-44); MEAN CORPUSCULAR HEMOGLOBIN 29 pg (25-34); MEAN CORPUSCULAR HGB CONC 31 g/dL (32-36); MEAN CORPUSCULAR VOLUME 95 fL (80-99); MEAN PLATELET VOLUME 10.2 fL (9.0-12.2); MONOCYTES # (AUTO) 1.1 10^3/uL (0.0-1.0); MONOCYTES % (AUTO) 9 % (0-12); NEUTROPHILS # (AUTO) 10.6 10^3/uL (1.8-7.8); NEUTROPHILS % (AUTO) 82 % (42-75); PLATELET COUNT 401 10^3/uL (130-400)
[2021-01-24] MEDS: RT-ALBUTEROL HFA 8.5 GM INHALER IH PRN (07:42)
[2021-01-24 07:49] LABS: ALBUMIN 3.3 GM/DL (3.2-4.5); BILIRUBIN,TOTAL 0.6 MG/DL (0.1-1.0); CALCIUM 9.4 MG/DL (8.5-10.1); CREATININE SERUM 0.85 MG/DL (0.60-1.30); POTASSIUM 4.3 MMOL/L (3.6-5.0)
[2021-01-24] MEDS: lisINopril 5 MG (PRINIVIL) TABLET PO SCH (09:11)
[2021-01-24] MEDS: KCL 10 MEQ TAB (MICRO K) PO SCH ×2 (09:11→18:15)
[2021-01-24] MEDS: ENOXAPARIN 40 MG/0.4 ML (LOVENOX) SYR SC SCH (09:11)
[2021-01-24] MEDS: PRASUGREL 10 MG (EFFIENT) TABLET PO SCH (09:11)
[2021-01-24] MEDS: ASPIRIN E.C. 81 MG (ECOTRIN) TAB PO SCH (09:11)
[2021-01-24] MEDS: SENNA W/DOCUSATE (SENOKOT S) TABLET PO SCH ×2 (09:12→19:48)
--- NOTE | 2021-01-24 12:29 | Progress Note - Hospitalist ---
Subjective HPI/CC On Admission Date Seen by Provider: Jan 24, 2021 Time Seen by Provider: 12:00 CC: SOB HPI: This is a 50yoWM hx of CAD defibrillator placement at October of last year who presented with SOB found to have Covid on 01/09/21. He was found to have a right pleural effusion and having no significant issues but he was placed on protocol. He will be moved down to 4th floor. Subjective/Events-last exam Patient doing a little better Feels like his oxygen is decreasing Was on room air then went back on 2 L Patient appears to be a bit ashen Check meds and labs Review of Systems General: Fatigue Pulmonary: Dyspnea Objective Exam Vital Signs Vital Signs Date Time Temp Pulse Resp B/P (MAP) Pulse Ox O2 Delivery O2 Flow Rate FiO2 01/24/21 12:00 36.0 107 22 110/76 (87) 99 Nasal Cannula 2.00 01/23/21 15:07 21 Capillary Refill : Less Than 3 Seconds General Appearance: No Apparent Distress, WD/WN, Chronically ill, Other (Ashen) Respiratory: Lungs Clear, Decreased Breath Sounds Cardiovascular: Regular Rate, Rhythm Neurologic/Psychiatric: Alert, Oriented x3, No Motor/Sensory Deficits, Normal Mood/Affect Results/Procedures Lab Laboratory Tests 01/24/21 06:28 Patient resulted labs reviewed. Assessment/Plan Assessment and Plan Assess & Plan/Chief Complaint Assessment: COVID-19 PNA -chest xray worsened 5 lobe infiltrates -CT angio chest negative for PE, groundglass opacities consistent with COVID-19 PNA -albuterol nebs -decadron -titrate oxygen to keep sat's >90 Acute on Chronic Systolic HF -BNP elevated -cardiology following -lasix -continue to monitor CAD s/p cardiac cath's multiple stents placed -cardiology following -prasugrel Ischemic cardiomyopathy. -last echo 12-08-20 showed LVEF of 35-40% -order new echo today Mod to severe MR - per echo of 12-08-20 -monitor H/O multiple VT's -cardiology following DVT ppx -lovenox HLP -monitor Polysubstance abuse -uds negative -encouraged continued abstinence Tobacco use -encouraged continued abstinence History of medication noncompliance -stressed importance of being compliant with meds and followup Clinical Quality Measures Smoking Cessation Counseling: Counseling-Symptomatic: 3-10 Minutes Discussed Options Including: Group/Indiv Counseling SOFIA HANKINS DO Jan 24, 2021 12:29
--- NOTE | 2021-01-24 14:46 | Cardiology Progress Note ---
Progress Note-Cardiology Events since last exam Date Seen by Provider: Jan 24, 2021 Time Seen by Provider: 14:46 Events since last exam We are following him for congestive heart failure in the setting of Covid in fection. I did not see the patient due to his Covid status. I spoke to his nurse who is caring for him today. His breathing is about the same. He has not been complaining of chest discomfort. She states he looks more dusky today but his oxygen saturations have been good. Certain portions of this document may have been dictated utilizing voice recognition technology. Inherent to this technology, typographical and grammatical errors may exist. As much as I am diligent to identify and correct these mistakes, some errors may remain in the document. Vitals Last set of Vitals Signs Vital Signs 01/23/21 01/24/21 15:07 12:00 Temp 36.0 Pulse 107 Resp 22 B/P (MAP) 110/76 (87) Pulse Ox 99 O2 Delivery Nasal Cannula O2 Flow Rate 2.00 FiO2 21 Labs Labs Laboratory Tests 01/24/21 06:28 Exam Vital Signs Vital Signs Date Time Temp Pulse Resp B/P (MAP) Pulse Ox O2 Delivery O2 Flow Rate FiO2 01/24/21 12:00 36.0 107 22 110/76 (87) 99 Nasal Cannula 2.00 01/23/21 15:07 21 Physical Exam I did not examine the patient due to Covid status. Labs Laboratory Tests Test 01/24/21 06:28 Range/Units White Blood Count 13.0 H 4.3-11.0 10^3/uL Red Blood Count 4.53 4.30-5.52 10^6/uL Hemoglobin 13.3 13.3-17.7 g/dL Hematocrit 43 40-54 % Mean Corpuscular Volume 95 80-99 fL Mean Corpuscular Hemoglobin 29 25-34 pg Mean Corpuscular Hemoglobin Concent 31 L 32-36 g/dL Red Cell Distribution Width 17.9 H 10.0-14.5 % Platelet Count 401 H 130-400 10^3/uL Mean Platelet Volume 10.2 9.0-12.2 fL Immature Granulocyte % (Auto) 1 % Neutrophils (%) (Auto) 82 H 42-75 % Lymphocytes (%) (Auto) 9 L 12-44 % Monocytes (%) (Auto) 9 0-12 % Eosinophils (%) (Auto) 0 0-10 % Basophils (%) (Auto) 0 0-10 % Neutrophils # (Auto) 10.6 H 1.8-7.8 10^3/uL Lymphocytes # (Auto) 1.1 1.0-4.0 10^3/uL Monocytes # (Auto) 1.1 H 0.0-1.0 10^3/uL Eosinophils # (Auto) 0.0 0.0-0.3 10^3/uL Basophils # (Auto) 0.0 0.0-0.1 10^3/uL Immature Granulocyte # (Auto) 0.1 0.0-0.1 10^3/uL Sodium Level 137 135-145 MMOL/L Potassium Level 4.3 3.6-5.0 MMOL/L Chloride Level 109 H 98-107 MMOL/L Carbon Dioxide Level 18 L 21-32 MMOL/L Anion Gap 10 5-14 MMOL/L Blood Urea Nitrogen 25 H 7-18 MG/DL Creatinine 0.85 0.60-1.30 MG/DL Estimat Glomerular Filtration Rate 96 BUN/Creatinine Ratio 29 Glucose Level 120 H 70-105 MG/DL Calcium Level 9.4 8.5-10.1 MG/DL Corrected Calcium 10.0 8.5-10.1 MG/DL Total Bilirubin 0.6 0.1-1.0 MG/DL Aspartate Amino Transf (AST/SGOT) 30 5-34 U/L Alanine Aminotransferase (ALT/SGPT) 49 0-55 U/L Alkaline Phosphatase 106 40-136 U/L Total Protein 7.0 6.4-8.2 GM/DL Albumin 3.3 3.2-4.5 GM/DL Diagnosis/Problems Diagnosis/Problems (1) Acute on chronic combined systolic and diastolic congestive heart failure Assessment & Plan: He has been receiving intravenous furosemide. It is difficult to gauge the symptoms due to the active Covid infection. I will obtain a follow-up chest x-ray tomorrow. Continue with metoprolol succinate (2) Coronary artery disease without angina pectoris Assessment & Plan: Troponin level was negative. He is not having any typical angina. We will continue aspirin, Prasugrel, and beta-cheryl. I have also added a lipid panel to this morning's blood sample to see if he might benefit from statin medication. (3) Cardiomyopathy Assessment & Plan: He had moderate left ventricular systolic dysfunction on echocardiogram earlier this year. We will continue metoprolol succinate and lisinopril. At some point, we may want to consider adding an aldosterone antagonist. Given the acute Covid infection, I will hold off on adding this medication for the time being. (4) Mitral regurgitation Assessment & Plan: He had moderate to severe mitral regurgitation on the same echocardiogram outlined above. This most likely functional mitral regurgitation related to the cardiomyopathy. There is no indication for acute intervention at this time. (5) Pulmonary hypertension Assessment & Plan: Most likely related to the chronic heart failure. (6) Cardiac defibrillator in situ HECTOR SUBRAMANIAN JR, MD Jan 24, 2021 14:46
[2021-01-24 15:05] LABS: TRIGLYCERIDES 102 MG/DL (<150); VLDL CHOLESTEROL 20 MG/DL (5-40)
[2021-01-24 15:10] LABS: CHOLESTEROL 145 MG/DL (< 200)
[2021-01-24 15:11] LABS: HDL CHOLESTEROL 22 MG/DL (40-60)
[2021-01-24] MEDS: RT-ALBUTEROL HFA 8.5 GM INHALER IH SCH (18:58)
[2021-01-25 06:03] LABS: BASOPHILS % (AUTO) 0 % (0-10); EOSINOPHILS % (AUTO) 0 % (0-10); HEMATOCRIT 42 % (40-54); HEMOGLOBIN 13.2 g/dL (13.3-17.7); LYMPHOCYTES # (AUTO) 1.4 10^3/uL (1.0-4.0); LYMPHOCYTES % (AUTO) 11 % (12-44); MEAN CORPUSCULAR HEMOGLOBIN 29 pg (25-34); MEAN CORPUSCULAR HGB CONC 31 g/dL (32-36); MEAN CORPUSCULAR VOLUME 94 fL (80-99); MONOCYTES % (AUTO) 8 % (0-12); NEUTROPHILS # (AUTO) 10.3 10^3/uL (1.8-7.8); NEUTROPHILS % (AUTO) 81 % (42-75); PLATELET COUNT 414 10^3/uL (130-400); WHITE BLOOD COUNT 12.8 10^3/uL (4.3-11.0)
[2021-01-25] MEDS: FUROSEMIDE 40 MG/4 ML INJ (LASIX) IVP SCH ×2 (06:09→16:36)
[2021-01-25] MEDS: dexAMETHasone 6 MG TAB (DECADRON) PO SCH (06:09)
[2021-01-25 06:21] LABS: ALBUMIN 3.3 GM/DL (3.2-4.5)
[2021-01-25 06:22] LABS: POTASSIUM 4.7 MMOL/L (3.6-5.0)
[2021-01-25 06:23] LABS: CALCIUM 9.2 MG/DL (8.5-10.1)
[2021-01-25 06:24] LABS: TOTAL PROTEIN 6.8 GM/DL (6.4-8.2)
[2021-01-25 06:26] LABS: BILIRUBIN,TOTAL 0.7 MG/DL (0.1-1.0)
[2021-01-25 06:28] LABS: CREATININE SERUM 1.08 MG/DL (0.60-1.30)
--- NOTE | 2021-01-25 06:33 | Progress Note - Hospitalist ---
Subjective HPI/CC On Admission Date Seen by Provider: Jan 25, 2021 Time Seen by Provider: 12:00 CC: SOB HPI: This is a 50yoWM hx of CAD defibrillator placement at October of last year who presented with SOB found to have Covid on 01/09/21. He was found to have a right pleural effusion and having no significant issues but he was placed on protocol. He will be moved down to 4th floor. Subjective/Events-last exam Patient doing about the same Get short of breath with any exertion Appears to be grimes and ashen Oxygen level good Review of Systems General: Fatigue, Malaise Objective Exam Vital Signs Vital Signs Date Time Temp Pulse Resp B/P (MAP) Pulse Ox O2 Delivery O2 Flow Rate FiO2 01/25/21 16:00 36.1 106 20 108/69 (82) 100 Nasal Cannula 1.00 01/25/21 08:15 24 Capillary Refill : Less Than 3 Seconds General Appearance: No Apparent Distress, WD/WN, Chronically ill Respiratory: No Accessory Muscle Use, No Respiratory Distress, Decreased Breath Sounds Cardiovascular: Regular Rate, Rhythm Neurologic/Psychiatric: Alert, Oriented x3, Depressed Affect Results/Procedures Lab Laboratory Tests 01/25/21 05:45 Patient resulted labs reviewed. Assessment/Plan Assessment and Plan Assess & Plan/Chief Complaint Assessment: COVID-19 PNA -chest xray worsened 5 lobe infiltrates -CT angio chest negative for PE, groundglass opacities consistent with COVID-19 PNA -albuterol nebs -decadron -titrate oxygen to keep sat's >90 Acute on Chronic Systolic HF -BNP elevated -cardiology following -lasix -continue to monitor CAD s/p cardiac cath's multiple stents placed -cardiology following -prasugrel Ischemic cardiomyopathy. -last echo 12-08-20 showed LVEF of 35-40% -order new echo today Mod to severe MR - per echo of 12-08-20 -monitor H/O multiple NC's -cardiology following DVT ppx -lovenox HLP -monitor Polysubstance abuse -uds negative -encouraged continued abstinence Tobacco use -encouraged continued abstinence History of medication noncompliance -stressed importance of being compliant with meds and followup 01/25/2021: Supportive care Oxygen High risk for decompensation Clinical Quality Measures Smoking Cessation Counseling: Counseling-Symptomatic: 3-10 Minutes Discussed Options Including: Group/Indiv Counseling SOFIA HANKINS DO Jan 25, 2021 06:33
--- NOTE | 2021-01-25 08:14 | Diagnostic Imaging Report ---
Clinical indication: Patient with congestive heart failure. Patient is COVID infection. Exam: Portable chest x-ray upright view. Comparisons: Chest x-ray dated 01/22/2021. Findings: Lungs/pleura: There is interval progression of patchy lung infiltrates involving the right upper lobe and right lower lung field region. There is stable lung infiltrates involving left midlung field and left upper lobe region. There is no pneumothorax. There is no pleural effusion. Mediastinum: Unremarkable. Pulmonary vasculature: Pulmonary vasculature is mildly prominent, as noted on the prior study.. Heart: There is stable cardiomegaly.. Bones/extrathoracic soft tissue: Unremarkable. Impression: 1: There are bilateral lung infiltrates which have progressed on the right side. 2: Again seen cardiomegaly with mild pulmonary vascular congestion. Dictated by: Dictated on workstation # [id number]
[2021-01-25] MEDS: RT-ALBUTEROL HFA 8.5 GM INHALER IH SCH ×2 (08:15→21:24)
[2021-01-25] MEDS: ASPIRIN E.C. 81 MG (ECOTRIN) TAB PO SCH (09:37)
[2021-01-25] MEDS: lisINopril 5 MG (PRINIVIL) TABLET PO SCH (09:37)
[2021-01-25] MEDS: ENOXAPARIN 40 MG/0.4 ML (LOVENOX) SYR SC SCH (09:37)
[2021-01-25] MEDS: SENNA W/DOCUSATE (SENOKOT S) TABLET PO SCH ×2 (09:37→20:39)
[2021-01-25] MEDS: KCL 10 MEQ TAB (MICRO K) PO SCH ×2 (09:37→16:36)
[2021-01-25] MEDS: PRASUGREL 10 MG (EFFIENT) TABLET PO SCH (09:37)
--- NOTE | 2021-01-25 12:39 | Cardiology Progress Note ---
Progress Note-Cardiology Events since last exam Date Seen by Provider: Jan 25, 2021 Time Seen by Provider: 12:39 Events since last exam We are seeing the patient due to heart failure superimposed on Covid infection. I did not see the patient due to his Covid status. His chest x-ray from this morning appears worse. Certain portions of this document may have been dictated utilizing voice recognition technology. Inherent to this technology, typographical and grammatical errors may exist. As much as I am diligent to identify and correct these mistakes, some errors may remain in the document. Vitals Last set of Vitals Signs Vital Signs 01/25/21 01/25/21 08:15 11:01 Temp 36.0 Pulse 112 Resp 22 B/P (MAP) 102/72 (82) Pulse Ox 98 O2 Delivery Nasal Cannula O2 Flow Rate 1.00 FiO2 24 Labs Labs Laboratory Tests 01/25/21 05:45 Exam Vital Signs Vital Signs Date Time Temp Pulse Resp B/P (MAP) Pulse Ox O2 Delivery O2 Flow Rate FiO2 01/25/21 11:01 36.0 112 22 102/72 (82) 98 Nasal Cannula 1.00 01/25/21 08:15 24 Physical Exam I did not see the patient due to Covid status. Labs Laboratory Tests Test 01/25/21 05:45 Range/Units White Blood Count 12.8 H 4.3-11.0 10^3/uL Red Blood Count 4.50 4.30-5.52 10^6/uL Hemoglobin 13.2 L 13.3-17.7 g/dL Hematocrit 42 40-54 % Mean Corpuscular Volume 94 80-99 fL Mean Corpuscular Hemoglobin 29 25-34 pg Mean Corpuscular Hemoglobin Concent 31 L 32-36 g/dL Red Cell Distribution Width 18.0 H 10.0-14.5 % Platelet Count 414 H 130-400 10^3/uL Mean Platelet Volume 10.0 9.0-12.2 fL Immature Granulocyte % (Auto) 1 % Neutrophils (%) (Auto) 81 H 42-75 % Lymphocytes (%) (Auto) 11 L 12-44 % Monocytes (%) (Auto) 8 0-12 % Eosinophils (%) (Auto) 0 0-10 % Basophils (%) (Auto) 0 0-10 % Neutrophils # (Auto) 10.3 H 1.8-7.8 10^3/uL Lymphocytes # (Auto) 1.4 1.0-4.0 10^3/uL Monocytes # (Auto) 1.0 0.0-1.0 10^3/uL Eosinophils # (Auto) 0.0 0.0-0.3 10^3/uL Basophils # (Auto) 0.0 0.0-0.1 10^3/uL Immature Granulocyte # (Auto) 0.1 0.0-0.1 10^3/uL Sodium Level 141 135-145 MMOL/L Potassium Level 4.7 3.6-5.0 MMOL/L Chloride Level 108 H 98-107 MMOL/L Carbon Dioxide Level 18 L 21-32 MMOL/L Anion Gap 15 H 5-14 MMOL/L Blood Urea Nitrogen 34 H 7-18 MG/DL Creatinine 1.08 0.60-1.30 MG/DL Estimat Glomerular Filtration Rate 73 BUN/Creatinine Ratio 31 Glucose Level 113 H 70-105 MG/DL Calcium Level 9.2 8.5-10.1 MG/DL Corrected Calcium 9.8 8.5-10.1 MG/DL Total Bilirubin 0.7 0.1-1.0 MG/DL Aspartate Amino Transf (AST/SGOT) 19 5-34 U/L Alanine Aminotransferase (ALT/SGPT) 42 0-55 U/L Alkaline Phosphatase 97 40-136 U/L Total Protein 6.8 6.4-8.2 GM/DL Albumin 3.3 3.2-4.5 GM/DL Diagnosis/Problems Diagnosis/Problems (1) Acute on chronic combined systolic and diastolic congestive heart failure Assessment & Plan: He has been receiving intravenous furosemide. It is difficult to gauge the symptoms due to the active Covid infection. His chest x- ray looks worse today which could be related to the Covid infection. Continue with beta-cheryl and IV furosemide. (2) Coronary artery disease without angina pectoris Assessment & Plan: Troponin level was negative. He is not having any typical angina. We will continue aspirin, Prasugrel, and beta-cheryl. His LDL level is elevated. I will start him on rosuvastatin. (3) Cardiomyopathy Assessment & Plan: He had moderate left ventricular systolic dysfunction on echocardiogram earlier this year. We will continue metoprolol succinate and lisinopril. At some point, we may want to consider adding an aldosterone antagonist. Given the acute Covid infection, I will hold off on adding this medication for the time being. We may want to consider a follow-up echocardiogram after he recovers from Covid infection. Given his negative troponin level, it is unlikely the Covid infection has caused myocarditis. (4) Mitral regurgitation Assessment & Plan: He had moderate to severe mitral regurgitation on the same echocardiogram outlined above. This is most likely functional mitral regurgitation related to the cardiomyopathy. This should improve if his cardiomyopathy improved. There is no indication for acute intervention at this time. (5) Pulmonary hypertension Assessment & Plan: Most likely related to the chronic heart failure. (6) Cardiac defibrillator in situ Assessment & Plan: Continue to monitor as an outpatient. HECTOR SUBRAMANIAN JR, MD Jan 25, 2021 12:39
[2021-01-25] MEDS: ROSUVASTATIN 20 MG (CRESTOR) TABLET PO SCH (20:40)
[2021-01-26] MEDS: dexAMETHasone 6 MG TAB (DECADRON) PO SCH (06:06)
[2021-01-26] MEDS: FUROSEMIDE 40 MG/4 ML INJ (LASIX) IVP SCH ×2 (06:06→18:10)
[2021-01-26 06:24] LABS: BASOPHILS % (AUTO) 0 % (0-10); EOSINOPHILS % (AUTO) 0 % (0-10); HEMATOCRIT 44 % (40-54); HEMOGLOBIN 13.8 g/dL (13.3-17.7); LYMPHOCYTES # (AUTO) 1.6 10^3/uL (1.0-4.0); LYMPHOCYTES % (AUTO) 12 % (12-44); MEAN CORPUSCULAR HEMOGLOBIN 30 pg (25-34); MEAN CORPUSCULAR HGB CONC 31 g/dL (32-36); MEAN CORPUSCULAR VOLUME 94 fL (80-99); MEAN PLATELET VOLUME 10.1 fL (9.0-12.2); MONOCYTES % (AUTO) 8 % (0-12); NEUTROPHILS # (AUTO) 10.4 10^3/uL (1.8-7.8); NEUTROPHILS % (AUTO) 79 % (42-75); PLATELET COUNT 395 10^3/uL (130-400); WHITE BLOOD COUNT 13.1 10^3/uL (4.3-11.0)
[2021-01-26 06:48] LABS: ALBUMIN 3.3 GM/DL (3.2-4.5); BILIRUBIN,TOTAL 0.8 MG/DL (0.1-1.0); CALCIUM 9.2 MG/DL (8.5-10.1); CREATININE SERUM 1.16 MG/DL (0.60-1.30); POTASSIUM 4.6 MMOL/L (3.6-5.0); TOTAL PROTEIN 6.8 GM/DL (6.4-8.2)
[2021-01-26] MEDS: RT-ALBUTEROL HFA 8.5 GM INHALER IH SCH ×2 (08:56→20:12)
[2021-01-26] MEDS: ASPIRIN E.C. 81 MG (ECOTRIN) TAB PO SCH (09:16)
[2021-01-26] MEDS: PRASUGREL 10 MG (EFFIENT) TABLET PO SCH (09:16)
[2021-01-26] MEDS: KCL 10 MEQ TAB (MICRO K) PO SCH ×2 (09:16→18:10)
[2021-01-26] MEDS: ENOXAPARIN 40 MG/0.4 ML (LOVENOX) SYR SC SCH (09:17)
[2021-01-26] MEDS: SENNA W/DOCUSATE (SENOKOT S) TABLET PO SCH ×2 (09:21→19:57)
[2021-01-26] MEDS: lisINopril 5 MG (PRINIVIL) TABLET PO SCH (09:21)
--- NOTE | 2021-01-26 18:03 | Progress Note - Cardiology ---
Cardiology SOAP Progress Note Subjective: We are managing his CHF. Because of his COVID+ status, we have been seeing him only on an as needed basis Objective: I&O/Vital Signs 01/26/21 01/26/21 01/26/21 01/26/21 07:50 08:00 08:56 15:51 Temp 35.4 Pulse 111 Resp 18 B/P (MAP) 99/71 (80) Pulse Ox 100 99 O2 Delivery Nasal Cannula Nasal Cannula Nasal Cannula Room Air O2 Flow Rate 1.00 1.00 1.00 01/26/21 16:00 Temp 36.9 Pulse 106 Resp 18 B/P (MAP) 106/83 (91) Pulse Ox 99 O2 Delivery Room Air 01/26/21 00:00 Intake Total 1336 ml Balance 1336 ml Weight (Pounds): 225 Weight (Ounces): 15.0 Weight (Calculated Kilograms): 102.132216 Skin: rash on exposed areas, ulcerations on exposed areas Results/Procedures: Labs Laboratory Tests 01/26/21 06:04: White Blood Count 13.1H, Red Blood Count 4.66, Hemoglobin 13.8, Hematocrit 44, Mean Corpuscular Volume 94, Mean Corpuscular Hemoglobin 30, Mean Corpuscular Hemoglobin Concent 31L, Red Cell Distribution Width 17.8H, Platelet Count 395, Mean Platelet Volume 10.1, Immature Granulocyte % (Auto) 1, Neutrophils (%) (Auto) 79H, Lymphocytes (%) (Auto) 12, Monocytes (%) (Auto) 8, Eosinophils (%) (Auto) 0, Basophils (%) (Auto) 0, Neutrophils # (Auto) 10.4H, Lymphocytes # (Auto) 1.6, Monocytes # (Auto) 1.0, Eosinophils # (Auto) 0.0, Basophils # (Auto) 0.0, Immature Granulocyte # (Auto) 0.1, Sodium Level 136, Potassium Level 4.6, Chloride Level 105, Carbon Dioxide Level 19L, Anion Gap 12, Blood Urea Nitrogen 40H, Creatinine 1.16, Estimat Glomerular Filtration Rate 67, BUN/Creatinine Ratio 34, Glucose Level 131H, Calcium Level 9.2, Corrected Calcium 9.8, Total Bilirubin 0.8, Aspartate Amino Transf (AST/SGOT) 26, Alanine Aminotransferase (ALT/SGPT) 43, Alkaline Phosphatase 102, Total Protein 6.8, Albumin 3.3 Microbiology 01/21/21 Blood Culture - Preliminary, Resulted No growth 01/21/21 MRSA Screen - Final, Complete MRSA not isolated 01/21/21 Urine Culture - Final, Complete Gram Pos Mixed Bacterial Erika Laboratory Tests 01/25/21 05:45 01/26/21 06:04 A/P: Assessment: Ac resp failure due to COVID pneumonia and CHF Covid pneumonia Acute on chronic systolic CHF S/P Single chamber defibrillator implantation on 10-30-2019. Functioning normally on interrogation of 12-08-20 CAD: - H/o [place] in late Jan 2019 (see below) - Card cath on 02/01/19: Coronary artery disease consisting of complete ostial occlusion of the left anterior descending artery to which successful percutaneous coronary intervention was carried out. Following deployment of MyQuoteAppine Xience 2.75 x 18 mm stent, there is no significant residual stenosis. A large obtuse marginal of the left circumflex shows 80% bifurcation stenosis in its distal portion. Right coronary artery is dominant and has mild disease. Elevated left ventricular end-diastolic pressure. Well preserved global left ventricular systolic function with ejection fraction approximately 55%. - Repeat intervention on 02-07-[address] Almaraz: balloon angioplasty to the ostium and proximal LAD with slow flow in the LAD with reestablishment of flow and good results. Mild disease in the circumflex and right coronary artery Dilated left ventricle with anterior wall hypokinesia to akinesia, estimated ejection fraction 30% - Last cardiac cath by Dr Almaraz on 09/17/20: Moderate to severe proximal and mid LAD, severe mid vessel disease of an OM, distal LAD fistula to the venous system / RV, dilated left ventricle with diffuse left ventricular hypokinesia ejection fraction 30% Ischemic cardiomyopathy. - Echo on 02/04/19: LVEF 40-45%, anteroseptal hypokinesis, mild conc LVH, RVSP 20 mmHg. LVEF 30% on cardiac cath of 02-07-19. - Echo of May 25, 2019 showed LVEF 30-35% - Echo of 12-08-20 showed LVEF 35-40%, mod to severe MR; mod TR; PASP 40-45 mmHg Transferred for consideration of CABG and repair of AV fistula and MV by Dr Almaraz to [facility] in September 2020. Not found to be a suitable candidate for any surgery due to continuing methamphetamine abuse Hyperlipidemia, by hx Tobaccoism, educated on smoking cessation (reports no usage in a month or two) Continued methamphetamine use - cessation advised (reports no usage in a month or two) Continued marijuana use - cessation advised (reports no usage in a month or two) H/O noncompliance with medications and f/u Plan: Very complex management due to multiple comorbidities Pneumonia appears to be worsening. Management of COVID pneumonia is per Medical/eICU services CXR still reports CHF. Continue diuretics and closely monitor labs Continue DAPT Clinical Quality Measures Smoking Cessation Counseling: Counseling-Symptomatic: 3-10 Minutes Discussed Options Including: Group/Indiv Counseling ALETHEA ALMAZAN MD FACP FACC CCDS Jan 26, 2021 18:03
[2021-01-26] MEDS: ROSUVASTATIN 20 MG (CRESTOR) TABLET PO SCH (19:58)
--- NOTE | 2021-01-26 20:27 | Progress Note ---
Subjective Subjective/Events-last exam Afebrile, states his breathing is feeling slightly better. Objective Exam Last Set of Vital Signs Vital Signs Date Time Temp Pulse Resp B/P (MAP) Pulse Ox O2 Delivery O2 Flow Rate FiO2 01/26/21 20:13 90 Nasal Cannula 2.00 01/26/21 16:00 36.9 106 18 106/83 (91) 01/25/21 21:25 28 Capillary Refill : Less Than 3 Seconds I&O Intake and Output 01/26/21 00:00 Intake Total 1986 ml Balance 1986 ml Intake Oral 1986 ml # Voids 9 # Bowel Movements 8 General: Alert, No Acute Distress Lungs: Clear to Auscultation Heart: Regular Rate Neuro: Normal Speech Psych/Mental Status: Mood NL Results/Procedures Lab Laboratory Tests 01/26/21 06:04: White Blood Count 13.1H, Red Blood Count 4.66, Hemoglobin 13.8, Hematocrit 44, Mean Corpuscular Volume 94, Mean Corpuscular Hemoglobin 30, Mean Corpuscular Hemoglobin Concent 31L, Red Cell Distribution Width 17.8H, Platelet Count 395, Mean Platelet Volume 10.1, Immature Granulocyte % (Auto) 1, Neutrophils (%) (Auto) 79H, Lymphocytes (%) (Auto) 12, Monocytes (%) (Auto) 8, Eosinophils (%) (Auto) 0, Basophils (%) (Auto) 0, Neutrophils # (Auto) 10.4H, Lymphocytes # (Auto) 1.6, Monocytes # (Auto) 1.0, Eosinophils # (Auto) 0.0, Basophils # (Auto) 0.0, Immature Granulocyte # (Auto) 0.1, Sodium Level 136, Potassium Level 4.6, Chloride Level 105, Carbon Dioxide Level 19L, Anion Gap 12, Blood Urea Nitrogen 40H, Creatinine 1.16, Estimat Glomerular Filtration Rate 67, BUN/Creatinine Ratio 34, Glucose Level 131H, Calcium Level 9.2, Corrected Calcium 9.8, Total Bilirubin 0.8, Aspartate Amino Transf (AST/SGOT) 26, Alanine Aminotransferase (ALT/SGPT) 43, Alkaline Phosphatase 102, Total Protein 6.8, Albumin 3.3 Microbiology 01/21/21 Blood Culture - Preliminary, Resulted No growth 01/21/21 MRSA Screen - Final, Complete MRSA not isolated 01/21/21 Urine Culture - Final, Complete Gram Pos Mixed Bacterial [facility] NAME: YURIY MARTINI [facility] REC#: [id number] PT STATUS: REG ER : 1970 PHYSICIAN: ANN STRICKLAND APRN ADMIT DATE: 01/21/21/ER Signed Date of Exam:01/21/21 CHEST 1 VIEW, AP/PA ONLY INDICATION: Chest pain, COVID. COMPARISON: 01/09/2021. FINDINGS: There are severe five-lobe infiltrates which on the left have progressed particularly in the upper lobe. The heart is enlarged, and there is some vascular congestion. A component of edema could not be excluded. IMPRESSION: Worsened five-lobe infiltrates, increased heart size, and mild vascular congestion. No pleural fluid. Dictated by: Dictated on workstation # [id number] Dict: 01/21/211701 Trans: 01/21/211707 [id number] Interpreted by: UGO HASKINS Electronically signed by: UGO HASKINS 01/21/211707 NAME: YURIY MARTINI [facility] REC#: [id number] PT STATUS: REG ER : 1970 PHYSICIAN: ANN STRICKLAND APRN ADMIT DATE: 01/21/21/ER Signed Date of Exam:01/21/21 CT ANGIO CHEST W EXAMINATION: CT angiography of the chest. TECHNIQUE: Contrast enhanced thin section helical images were obtained through the chest with intravenous contrast timed for the optimal opacification of the arterial structures per CTA protocol. Post-processing, reconstructions and interpretation of angiographic images of the vessels was performed. 3D MIP reconstructions were performed and reviewed. All CT scans use one or more of the following dose optimizing techniques: automated exposure control, MA and/or KvP adjustment based on patient size and exam type or iterative reconstruction. HISTORY: Dyspnea, Covid. COMPARISON: CTA chest 01/09/2021. FINDINGS: Vascular: No filling defects within the pulmonary arteries. Thoracic aorta is normal in caliber. Calcification of the aorta and coronary vessels. Thyroid: The thyroid is normal. Mediastinum: Heart size is mildly enlarged with a small pericardial effusion. There are a few prominent mediastinal lymph nodes which are not pathologically enlarged. Lungs and airways: There is a large right pleural effusion. Patchy groundglass opacities throughout both lungs. No pneumothorax. The airways are normal. Upper abdomen: There is mild gallbladder wall thickening or pericholecystic fluid. Musculoskeletal: No suspicious osseous lesion or compression fracture. IMPRESSION: 1. No findings of pulmonary embolus. 2. Large right pleural effusion. 3. Patchy groundglass opacities throughout both lungs compatible with history of Covid 19 pneumonia. Dictated by: Dictated on workstation # [id number] Dict: 01/21/211835 Trans: 01/21/211849 [facility] [id number] Interpreted by: MATILDA DONALD DO Electronically signed by: MATILDA DONALD DO 01/21/211849 Assessment/Plan Assessment/Plan (1) COVID-19 Status: Acute Assessment & Plan: CTA chest neg for PE. Dexamethasone, stable on room air today. (2) Acute on chronic heart failure Status: Acute Assessment & Plan: Appreciate Cardiology recommendations. Qualifiers: Qualified Codes: I50.23 - Acute on chronic systolic (congestive) heart failure (3) Cardiomyopathy Status: Chronic Qualifiers: Qualified Codes: I25.5 - Ischemic cardiomyopathy (4) Coronary artery disease without angina pectoris Status: Chronic Qualifiers: Qualified Codes: I25.10 - Atherosclerotic heart disease of [place] coronary artery without angina pectoris (5) DVT prophylaxis Status: Acute Assessment & Plan: Enoxaparin Clinical Quality Measures Smoking Cessation Counseling: Counseling-Symptomatic: 3-10 Minutes Discussed Options Including: Group/Indiv Counseling TANG TERRY MD Jan 26, 2021 20:27
[2021-01-27] MEDS: dexAMETHasone 6 MG TAB (DECADRON) PO SCH (05:49)
[2021-01-27] MEDS: FUROSEMIDE 40 MG/4 ML INJ (LASIX) IVP SCH (05:49)
[2021-01-27 07:02] LABS: HEMATOCRIT 45 % (40-54); HEMOGLOBIN 13.9 g/dL (13.3-17.7); MEAN CORPUSCULAR HEMOGLOBIN 30 pg (25-34); MEAN CORPUSCULAR HGB CONC 31 g/dL (32-36); MEAN CORPUSCULAR VOLUME 95 fL (80-99); PLATELET COUNT 421 10^3/uL (130-400)
[2021-01-27 07:21] LABS: CALCIUM 9.5 MG/DL (8.5-10.1); CREATININE SERUM 1.28 MG/DL (0.60-1.30); POTASSIUM 4.3 MMOL/L (3.6-5.0)
[2021-01-27] MEDS: RT-ALBUTEROL HFA 8.5 GM INHALER IH SCH ×2 (07:35→20:33)
[2021-01-27] MEDS: SENNA W/DOCUSATE (SENOKOT S) TABLET PO SCH ×2 (09:00→19:11)
[2021-01-27] MEDS: KCL 10 MEQ TAB (MICRO K) PO SCH ×2 (09:11→17:46)
[2021-01-27] MEDS: ASPIRIN E.C. 81 MG (ECOTRIN) TAB PO SCH (09:11)
[2021-01-27] MEDS: lisINopril 5 MG (PRINIVIL) TABLET PO SCH (09:11)
[2021-01-27] MEDS: ENOXAPARIN 40 MG/0.4 ML (LOVENOX) SYR SC SCH (09:11)
[2021-01-27] MEDS: PRASUGREL 10 MG (EFFIENT) TABLET PO SCH (09:12)
--- NOTE | 2021-01-27 14:49 | Progress Note - Cardiology ---
Cardiology SOAP Progress Note Subjective: He feels better than at time of admission, but still feels short of breath with mild activity No cp or palp or syncope No n/v/d Gen malaise and weakness present Objective: I&O/Vital Signs 01/27/21 01/27/21 01/27/21 01/27/21 05:49 07:36 08:00 08:00 Temp 36.1 Pulse 106 Resp 20 B/P (MAP) 112/81 (91) Pulse Ox 94 90 95 97 O2 Delivery Room Air Nasal Cannula Nasal Cannula Nasal Cannula O2 Flow Rate 2.00 2.00 2.00 01/27/21 00:00 Intake Total 1270 ml Balance 1270 ml Weight (Pounds): 225 Weight (Ounces): 15.0 Weight (Calculated Kilograms): 102.690184 Constitutional: AAO x 3, well-developed, well-nourished Respiratory: No accessory muscle use; other (fair, bilat air entry; some scattered ronchi) Cardiovascular: regular rate-rhythm, S1 and S2, systolic murmur (2-3/6 HSM) Gastrointestional: No tender; soft; No guarding, No rebound; audible bowel sounds Extremities: No clubbing, No cyanosis, No significant edema Neurologic/Psychiatric: oriented x 3, other (moves all limbs equally) Skin: warm/dry, rash on exposed areas, ulcerations on exposed areas Results/Procedures: Labs Laboratory Tests 01/27/21 06:49: White Blood Count 15.0H, Red Blood Count 4.67, Hemoglobin 13.9, Hematocrit 45, Mean Corpuscular Volume 95, Mean Corpuscular Hemoglobin 30, Mean Corpuscular Hemoglobin Concent 31L, Red Cell Distribution Width 17.9H, Platelet Count 421H, Mean Platelet Volume 10.0, Sodium Level 138, Potassium Level 4.3, Chloride Level 103, Carbon Dioxide Level 23, Anion Gap 12, Blood Urea Nitrogen 44H, Creatinine 1.28, Estimat Glomerular Filtration Rate 60, BUN/Creatinine Ratio 34, Glucose Level 113H, Calcium Level 9.5 Microbiology 01/21/21 Blood Culture - Final, Complete No growth 01/21/21 MRSA Screen - Final, Complete MRSA not isolated 01/21/21 Urine Culture - Final, Complete Gram Pos Mixed Bacterial Erika Laboratory Tests 01/26/21 06:04 01/27/21 06:49 A/P: Assessment: Ac resp failure due to COVID pneumonia and CHF Covid pneumonia Acute on chronic systolic CHF - acute component is clinically improved and labs are indicated some pre-renal azotemia on 01/27/21 (likely due to intravascular volume depletion) S/P Single chamber defibrillator implantation on 10-30-2019. Functioning normally on interrogation of 12-08-20 CAD: - H/o [place] in late Jan 2019 (see below) - Card cath on 02/01/19: Coronary artery disease consisting of complete ostial occlusion of the left anterior descending artery to which successful percutaneous coronary intervention was carried out. Following deployment of Andtixine Xience 2.75 x 18 mm stent, there is no significant residual stenosis. A large obtuse marginal of the left circumflex shows 80% bifurcation stenosis in its distal portion. Right coronary artery is dominant and has mild disease. Elevated left ventricular end-diastolic pressure. Well preserved global left ventricular systolic function with ejection fraction approximately 55%. - Repeat intervention on 02-07-[address] Almaraz: balloon angioplasty to the ostium and proximal LAD with slow flow in the LAD with reestablishment of flow and good results. Mild disease in the circumflex and right coronary artery Dilated left ventricle with anterior wall hypokinesia to akinesia, estimated ejection fraction 30% - Last cardiac cath by Dr Almaraz on 09/17/20: Moderate to severe proximal and mid LAD, severe mid vessel disease of an OM, distal LAD fistula to the venous system / RV, dilated left ventricle with diffuse left ventricular hypokinesia ejection fraction 30% Ischemic cardiomyopathy. - Echo on 02/04/19: LVEF 40-45%, anteroseptal hypokinesis, mild conc LVH, RVSP 20 mmHg. LVEF 30% on cardiac cath of 02-07-19. - Echo of May 25, 2019 showed LVEF 30-35% - Echo of 12-08-20 showed LVEF 35-40%, mod to severe MR; mod TR; PASP 40-45 mmHg Transferred for consideration of CABG and repair of AV fistula and MV by Dr Almaraz to [facility] in September 2020. Not found to be a suitable candidate for any surgery due to continuing methamphetamine abuse Hyperlipidemia, by hx Tobaccoism, educated on smoking cessation (reports no usage in a month or two) Continued methamphetamine use - cessation advised (reports no usage in a month or two) Continued marijuana use - cessation advised (reports no usage in a month or two) H/O noncompliance with medications and f/u Plan: Very complex management due to multiple comorbidities I interviewed and examined him today and answered his CV-related questions detail Based on labs, he appears to be becoming dehydrated. Reduce furoseminde Management of COVID pneumonia is per Medical/eICU services Monitor labs Clinical Quality Measures Smoking Cessation Counseling: Counseling-Symptomatic: 3-10 Minutes Discussed Options Including: Group/Indiv Counseling ALETHEA ALMAZAN MD FACP FACC CCDS Jan 27, 2021 14:49
--- NOTE | 2021-01-27 16:11 | Progress Note ---
Subjective Subjective/Events-last exam Still feeling fairly short of breath, requiring 2 lpm supplemental oxygen. Denies other concerns. Objective Exam Last Set of Vital Signs Vital Signs Date Time Temp Pulse Resp B/P (MAP) Pulse Ox O2 Delivery O2 Flow Rate FiO2 01/27/21 08:00 36.1 106 20 112/81 (91) 97 Nasal Cannula 2.00 01/25/21 21:25 28 Capillary Refill : Less Than 3 Seconds I&O Intake and Output 01/27/21 00:00 Intake Total 1920 ml Balance 1920 ml Intake Oral 1920 ml # Voids 12 # Bowel Movements 3 General: Alert, Mild Distress Lungs: Other (accessory muscle use) Neuro: Normal Speech Psych/Mental Status: Mood NL Results/Procedures Lab Laboratory Tests 01/27/21 06:49: White Blood Count 15.0H, Red Blood Count 4.67, Hemoglobin 13.9, Hematocrit 45, Mean Corpuscular Volume 95, Mean Corpuscular Hemoglobin 30, Mean Corpuscular Hemoglobin Concent 31L, Red Cell Distribution Width 17.9H, Platelet Count 421H, Mean Platelet Volume 10.0, Sodium Level 138, Potassium Level 4.3, Chloride Level 103, Carbon Dioxide Level 23, Anion Gap 12, Blood Urea Nitrogen 44H, Creatinine 1.28, Estimat Glomerular Filtration Rate 60, BUN/Creatinine Ratio 34, Glucose Level 113H, Calcium Level 9.5 Microbiology 01/21/21 Blood Culture - Final, Complete No growth 01/21/21 MRSA Screen - Final, Complete MRSA not isolated 01/21/21 Urine Culture - Final, Complete Gram Pos Mixed Bacterial [facility] NAME: YURIY MARTINI [facility] REC#: [id number] PT STATUS: REG ER : 1970 PHYSICIAN: ANN STRICKLAND APRN ADMIT DATE: 01/21/21/ER Signed Date of Exam:01/21/21 CHEST 1 VIEW, AP/PA ONLY INDICATION: Chest pain, COVID. COMPARISON: 01/09/2021. FINDINGS: There are severe five-lobe infiltrates which on the left have progressed particularly in the upper lobe. The heart is enlarged, and there is some vascular congestion. A component of edema could not be excluded. IMPRESSION: Worsened five-lobe infiltrates, increased heart size, and mild vascular congestion. No pleural fluid. Dictated by: Dictated on workstation # [id number] Dict: 01/21/212 Trans: 01/21/211707 [id number] Interpreted by: UGO HASKINS Electronically signed by: UGO HASKINS 01/21/218 NAME: YURIY MARTINI [facility] REC#: [id number] PT STATUS: REG ER : 1970 PHYSICIAN: ANN STRICKLAND APRN ADMIT DATE: 01/21/21/ER Signed Date of Exam:01/21/21 CT ANGIO CHEST W EXAMINATION: CT angiography of the chest. TECHNIQUE: Contrast enhanced thin section helical images were obtained through the chest with intravenous contrast timed for the optimal opacification of the arterial structures per CTA protocol. Post-processing, reconstructions and interpretation of angiographic images of the vessels was performed. 3D MIP reconstructions were performed and reviewed. All CT scans use one or more of the following dose optimizing techniques: automated exposure control, MA and/or KvP adjustment based on patient size and exam type or iterative reconstruction. HISTORY: Dyspnea, Covid. COMPARISON: CTA chest 01/09/2021. FINDINGS: Vascular: No filling defects within the pulmonary arteries. Thoracic aorta is normal in caliber. Calcification of the aorta and coronary vessels. Thyroid: The thyroid is normal. Mediastinum: Heart size is mildly enlarged with a small pericardial effusion. There are a few prominent mediastinal lymph nodes which are not pathologically enlarged. Lungs and airways: There is a large right pleural effusion. Patchy groundglass opacities throughout both lungs. No pneumothorax. The airways are normal. Upper abdomen: There is mild gallbladder wall thickening or pericholecystic fluid. Musculoskeletal: No suspicious osseous lesion or compression fracture. IMPRESSION: 1. No findings of pulmonary embolus. 2. Large right pleural effusion. 3. Patchy groundglass opacities throughout both lungs compatible with history of Covid 19 pneumonia. Dictated by: Dictated on workstation # [id number] Dict: 01/21/211835 Trans: 01/21/211849 [facility] [id number] Interpreted by: MATILDA DONALD DO Electronically signed by: MATILDA DONALD DO 01/21/211849 Assessment/Plan Assessment/Plan (1) COVID-19 Status: Acute Assessment & Plan: CTA chest neg for PE. Dexamethasone, on 2 lpm supplemental oxygen today. (2) Acute on chronic heart failure Status: Acute Assessment & Plan: Appreciate Cardiology recommendations. Qualifiers: Qualified Codes: I50.23 - Acute on chronic systolic (congestive) heart failure (3) Cardiomyopathy Status: Chronic Qualifiers: Qualified Codes: I25.5 - Ischemic cardiomyopathy (4) Coronary artery disease without angina pectoris Status: Chronic Qualifiers: Qualified Codes: I25.10 - Atherosclerotic heart disease of [place] coronary artery without angina pectoris (5) DVT prophylaxis Status: Acute Assessment & Plan: Enoxaparin Clinical Quality Measures Smoking Cessation Counseling: Counseling-Symptomatic: 3-10 Minutes Discussed Options Including: Group/Indiv Counseling TANG TERRY MD Jan 27, 2021 16:11
[2021-01-27] MEDS: ROSUVASTATIN 20 MG (CRESTOR) TABLET PO SCH (19:38)
[2021-01-28] MEDS: dexAMETHasone 6 MG TAB (DECADRON) PO SCH (05:05)
[2021-01-28] MEDS: guaiFENesin/CODEINE (ROBITUSSIN AC) 10ML UDC PO PRN ×2 (05:06→12:24)
[2021-01-28] MEDS: HYDROcodone/APAP 5 MG/325 MG (LORTAB) TAB PO PRN ×2 (05:12→12:25)
[2021-01-28 06:07] LABS: HEMATOCRIT 46 % (40-54); HEMOGLOBIN 14.1 g/dL (13.3-17.7); MEAN CORPUSCULAR HEMOGLOBIN 29 pg (25-34); MEAN CORPUSCULAR HGB CONC 31 g/dL (32-36); MEAN CORPUSCULAR VOLUME 95 fL (80-99); MEAN PLATELET VOLUME 10.2 fL (9.0-12.2); PLATELET COUNT 425 10^3/uL (130-400); WHITE BLOOD COUNT 15.2 10^3/uL (4.3-11.0)
[2021-01-28 06:21] LABS: POTASSIUM 4.5 MMOL/L (3.6-5.0)
[2021-01-28 06:22] LABS: CALCIUM 9.3 MG/DL (8.5-10.1)
[2021-01-28 06:26] LABS: CREATININE SERUM 1.1 MG/DL (0.60-1.30)
[2021-01-28] MEDS: RT-ALBUTEROL HFA 8.5 GM INHALER IH SCH ×2 (07:36→18:26)
[2021-01-28] MEDS: KCL 10 MEQ TAB (MICRO K) PO SCH ×2 (08:34→18:13)
[2021-01-28] MEDS: lisINopril 5 MG (PRINIVIL) TABLET PO SCH (08:34)
[2021-01-28] MEDS: ASPIRIN E.C. 81 MG (ECOTRIN) TAB PO SCH (08:35)
[2021-01-28] MEDS: PRASUGREL 10 MG (EFFIENT) TABLET PO SCH (08:35)
[2021-01-28] MEDS: SENNA W/DOCUSATE (SENOKOT S) TABLET PO SCH ×2 (08:35→20:46)
[2021-01-28] MEDS: ENOXAPARIN 40 MG/0.4 ML (LOVENOX) SYR SC SCH (08:35)
[2021-01-28] MEDS ORDERED: FUROSEMIDE 40 MG/4 ML INJ (LASIX) IVP SCH (09:00)
[2021-01-28 10:01] LABS: ABG BASE EXCESS -3.4 MMOL/L (-2.5-2.5); ABG OXYGEN SATURATION 99 % (94-100); ABG PCO2 25 MMHG (35-45); ABG PO2 99 MMHG (79-93); ABG TCO2 20.7 MMOL/L (21.0-31.0)
[2021-01-28 10:02] LABS: ALLENS TEST YES-POS
[2021-01-28 10:03] LABS: INSPIRED O2 1; PATIENT TEMP 93.7; VENTILATOR NO
--- NOTE | 2021-01-28 10:14 | Diagnostic Imaging Report ---
INDICATION: COVID 19 positive. TIME OF EXAM: 9:53 AM Correlation is made with prior chest from 01/25/2021. Cardiac defibrillator is in place. Heart size stable. There is continued airspace infiltrate in the right lung, most consolidated in the right base. There has been some increase in consolidation in the right base since prior. Left lung is fairly clear. There is no effusion or pneumothorax. IMPRESSION: Right-sided pulmonary infiltrates showing some increase in consolidation in the right base when compared to examination 3 days earlier. Dictated by: Dictated on workstation # [id number]
[2021-01-28] MEDS: ALPRAZolam 0.25 MG (XANAX) TAB PO PRN ×2 (10:18→20:46)
[2021-01-28] MEDS ORDERED: PIPERACILLIN/TAZOBACTAM (BULK) 4.5 GM in NS (IVPB) 100 ML IV NR (13:30)
[2021-01-28] MEDS ORDERED: PHARMACY TO DOSE IV SCH (13:45)
[2021-01-28] MEDS ORDERED: VANCOMYCIN 1,750 MG/NS 500 ML IVPB IV SCH ×2 (14:00)
--- NOTE | 2021-01-28 16:22 | Progress Note ---
Subjective Subjective/Events-last exam Pt seen at 1035, was feeling very short of breath and had ashen appearance to face, but both PO2 and SpO2 were normal on 2 lpm and he had low pCO2. Focused Exam Lactate Level 01/28/21 14:30: Lactic Acid Level 2.57*H Lactic Acid Level Laboratory Tests Test 01/28/21 14:30 Lactic Acid Level 2.57 MMOL/L (0.50-2.00) *H Objective Exam Last Set of Vital Signs Vital Signs Date Time Temp Pulse Resp B/P (MAP) Pulse Ox O2 Delivery O2 Flow Rate FiO2 01/28/21 15:39 36.2 100 18 97/69 (78) 99 Nasal Cannula 2.00 01/25/21 21:25 28 Capillary Refill : Less Than 3 Seconds I&O Intake and Output 01/28/21 00:00 Intake Total 2144 ml Balance 2144 ml Intake Oral 2144 ml # Voids 8 General: Alert, Moderate Distress Lungs: Other (ronchi) Heart: Regular Rate Neuro: Normal Speech Psych/Mental Status: Other (tearful) Results/Procedures Lab Laboratory Tests 01/28/21 05:22: White Blood Count 15.2H, Red Blood Count 4.84, Hemoglobin 14.1, Hematocrit 46, Mean Corpuscular Volume 95, Mean Corpuscular Hemoglobin 29, Mean Corpuscular Hemoglobin Concent 31L, Red Cell Distribution Width 17.8H, Platelet Count 425H, Mean Platelet Volume 10.2, D-Dimer 2.83H, Sodium Level 134L, Potassium Level 4.5, Chloride Level 101, Carbon Dioxide Level 20L, Anion Gap 13, Blood Urea Nitrogen 43H, Creatinine 1.10, Estimat Glomerular Filtration Rate 71, BUN/Creatinine Ratio 39, Glucose Level 114H, Calcium Level 9.3, B-Type Natriuretic Peptide 1433.1H 01/28/21 09:57: Blood Gas Puncture Site LEFT RAD, Blood Gas Patient Temperature 93.7, Arterial Blood pH 7.50H, Arterial Blood Partial Pressure CO2 25L, Arterial Blood Partial Pressure O2 99H, Arterial Blood HCO3 20L, Arterial Blood Total CO2 20.7L, Arterial Blood Oxygen Saturation 99, Arterial Blood Base Excess -3.4L, Chris Test YES-POS, Blood Gas Ventilator Setting NO, Blood Gas Inspired Oxygen 1 01/28/21 14:30: Lactic Acid Level 2.57*H Microbiology 01/21/21 Blood Culture - Final, Complete No growth 01/21/21 MRSA Screen - Final, Complete MRSA not isolated 01/21/21 Urine Culture - Final, Complete Gram Pos Mixed Bacterial [facility] NAME: YURIY MARTINI [facility] REC#: [id number] PT STATUS: REG ER : 1970 PHYSICIAN: ANN STRICKLAND APRN ADMIT DATE: 01/21/21/ER Signed Date of Exam:01/21/21 CHEST 1 VIEW, AP/PA ONLY INDICATION: Chest pain, COVID. COMPARISON: 01/09/2021. FINDINGS: There are severe five-lobe infiltrates which on the left have progressed particularly in the upper lobe. The heart is enlarged, and there is some vascular congestion. A component of edema could not be excluded. IMPRESSION: Worsened five-lobe infiltrates, increased heart size, and mild vascular congestion. No pleural fluid. Dictated by: Dictated on workstation # [id number] Dict: 01/21/211701 Trans: 01/21/211707 [id number] Interpreted by: UGO HASKINS Electronically signed by: UGO HASKINS 01/21/211707 NAME: YURIY MARTINI [facility] REC#: [id number] PT STATUS: REG ER : 1970 PHYSICIAN: ANN STRICKLAND APRN ADMIT DATE: 01/21/21/ER Signed Date of Exam:01/21/21 CT ANGIO CHEST W EXAMINATION: CT angiography of the chest. TECHNIQUE: Contrast enhanced thin section helical images were obtained through the chest with intravenous contrast timed for the optimal opacification of the arterial structures per CTA protocol. Post-processing, reconstructions and interpretation of angiographic images of the vessels was performed. 3D MIP reconstructions were performed and reviewed. All CT scans use one or more of the following dose optimizing techniques: automated exposure control, MA and/or KvP adjustment based on patient size and exam type or iterative reconstruction. HISTORY: Dyspnea, Covid. COMPARISON: CTA chest 01/09/2021. FINDINGS: Vascular: No filling defects within the pulmonary arteries. Thoracic aorta is normal in caliber. Calcification of the aorta and coronary vessels. Thyroid: The thyroid is normal. Mediastinum: Heart size is mildly enlarged with a small pericardial effusion. There are a few prominent mediastinal lymph nodes which are not pathologically enlarged. Lungs and airways: There is a large right pleural effusion. Patchy groundglass opacities throughout both lungs. No pneumothorax. The airways are normal. Upper abdomen: There is mild gallbladder wall thickening or pericholecystic fluid. Musculoskeletal: No suspicious osseous lesion or compression fracture. IMPRESSION: 1. No findings of pulmonary embolus. 2. Large right pleural effusion. 3. Patchy groundglass opacities throughout both lungs compatible with history of Covid 19 pneumonia. Dictated by: Dictated on workstation # [id number] Dict: 01/21/211835 Trans: 01/21/211849 [facility] [id number] Interpreted by: MATILDA DONALD DO Electronically signed by: MATILDA DONALD DO 01/21/211849 Assessment/Plan Assessment/Plan (1) COVID-19 Status: Acute Assessment & Plan: CTA chest neg for PE. Dexamethasone, on 2 lpm supplemental oxygen. 01/28 worsening work of breathing, repeat D dimer decreased, ABG with no hypoxia or hypercapnia. Repeat CXR pending. (2) Acute on chronic heart failure Status: Acute Assessment & Plan: Appreciate Cardiology recommendations. 01/28 lasix decreased today due to suspicion of developing dehydration, increased work of breathing this am, so repeat BNP drawn today which was increased, appreciate Cardiology recommendations. Qualifiers: Qualified Codes: I50.23 - Acute on chronic systolic (congestive) heart failure (3) Cardiomyopathy Status: Chronic Qualifiers: Qualified Codes: I25.5 - Ischemic cardiomyopathy (4) Coronary artery disease without angina pectoris Status: Chronic Qualifiers: Qualified Codes: I25.10 - Atherosclerotic heart disease of [place] coronary artery without angina pectoris (5) DVT prophylaxis Status: Acute Assessment & Plan: Enoxaparin Clinical Quality Measures Smoking Cessation Counseling: Counseling-Symptomatic: 3-10 Minutes Discussed Options Including: Group/Indiv Counseling TANG TERRY MD Jan 28, 2021 16:22
--- NOTE | 2021-01-28 17:10 | Progress Note - Cardiology ---
Cardiology SOAP Progress Note Objective: I&O/Vital Signs 01/28/21 01/28/21 01/28/21 01/28/21 05:09 07:36 08:00 08:00 Temp 36.0 Pulse 108 Resp 24 B/P (MAP) 110/78 (89) Pulse Ox 100 100 100 O2 Delivery Nasal Cannula Nasal Cannula Nasal Cannula Nasal Cannula O2 Flow Rate 2.00 2.00 2.00 2.00 01/28/21 15:39 Temp 36.2 Pulse 100 Resp 18 B/P (MAP) 97/69 (78) Pulse Ox 99 O2 Delivery Nasal Cannula O2 Flow Rate 2.00 01/28/21 00:00 Intake Total 1294 ml Balance 1294 ml Weight (Pounds): 225 Weight (Ounces): 15.0 Weight (Calculated Kilograms): 102.758089 Respiratory: accessory muscle use Results/Procedures: Labs Laboratory Tests 01/28/21 05:22: White Blood Count 15.2H, Red Blood Count 4.84, Hemoglobin 14.1, Hematocrit 46, Mean Corpuscular Volume 95, Mean Corpuscular Hemoglobin 29, Mean Corpuscular Hemoglobin Concent 31L, Red Cell Distribution Width 17.8H, Platelet Count 425H, Mean Platelet Volume 10.2, D-Dimer 2.83H, Sodium Level 134L, Potassium Level 4.5, Chloride Level 101, Carbon Dioxide Level 20L, Anion Gap 13, Blood Urea Nitrogen 43H, Creatinine 1.10, Estimat Glomerular Filtration Rate 71, BUN/Creatinine Ratio 39, Glucose Level 114H, Calcium Level 9.3, B-Type Natriuretic Peptide 1433.1H 01/28/21 09:57: Blood Gas Puncture Site LEFT RAD, Blood Gas Patient Temperature 93.7, Arterial Blood pH 7.50H, Arterial Blood Partial Pressure CO2 25L, Arterial Blood Partial Pressure O2 99H, Arterial Blood HCO3 20L, Arterial Blood Total CO2 20.7L, Ursula rial Blood Oxygen Saturation 99, Arterial Blood Base Excess -3.4L, Chris Test Y ES-POS, Blood Gas Ventilator Setting NO, Blood Gas Inspired Oxygen 1 01/28/21 14:30: Lactic Acid Level 2.57*H Microbiology 01/21/21 Blood Culture - Final, Complete No growth 01/21/21 MRSA Screen - Final, Complete MRSA not isolated 01/21/21 Urine Culture - Final, Complete Gram Pos Mixed Bacterial Erika Laboratory Tests 01/27/21 06:49 01/28/21 05:22 A/P: Assessment: Ac resp failure due to COVID pneumonia and CHF Covid pneumonia Acute on chronic systolic CHF - worsening of shortness of breath on 01/28/21 and elevated BNP S/P Single chamber defibrillator implantation on 10-30-2019. Functioning normally on interrogation of 12-08-20 CAD: - H/o [place] in late Jan 2019 (see below) - Card cath on 02/01/19: Coronary artery disease consisting of complete ostial occlusion of the left anterior descending artery to which successful percutaneous coronary intervention was carried out. Following deployment of [place] Xience 2.75 x 18 mm stent, there is no significant residual stenosis. A large obtuse marginal of the left circumflex shows 80% bifurcation stenosis in its distal portion. Right coronary artery is dominant and has mild disease. Elevated left ventricular end-diastolic pressure. Well preserved global left ventricular systolic function with ejection fraction approximately 55%. - Repeat intervention on 02-07-[address] Almaraz: balloon angioplasty to the ostium and proximal LAD with slow flow in the LAD with reestablishment of flow and good results. Mild disease in the circumflex and right coronary artery Dilated left ventricle with anterior wall hypokinesia to akinesia, estimated ejection fraction 30% - Last cardiac cath by Dr Almaraz on 09/17/20: Moderate to severe proximal and mid LAD, severe mid vessel disease of an OM, distal LAD fistula to the venous system / RV, dilated left ventricle with diffuse left ventricular hypokinesia ejection fraction 30% Ischemic cardiomyopathy. - Echo on 02/04/19: LVEF 40-45%, anteroseptal hypokinesis, mild conc LVH, RVSP 20 mmHg. LVEF 30% on cardiac cath of 02-07-19. - Echo of May 25, 2019 showed LVEF 30-35% - Echo of 12-08-20 showed LVEF 35-40%, mod to severe MR; mod TR; PASP 40-45 mmHg Transferred for consideration of CABG and repair of AV fistula and MV by Dr Almaraz to [facility] in September 2020. Not found to be a suitable candidate for any surgery due to continuing methamphetamine abuse Hyperlipidemia, by hx Tobaccoism, educated on smoking cessation (reports no usage in a month or two) Continued methamphetamine use - cessation advised (reports no usage in a month or two) Continued marijuana use - cessation advised (reports no usage in a month or two) H/O noncompliance with medications and f/u Plan: I reviewed his records, labs, and Dr. Angel's note. I did not personally see the patient today (due to his COVID status, we have been limiting personal visits). Shortness of breath has been worse and BNP is considerably elevated. Renal func tion appears stable. Given all these considerations, it appears reasonable to increase the dose of iv furosemide back to 40 bid. Continue to monitor labs Clinical Quality Measures Smoking Cessation Counseling: Counseling-Symptomatic: 3-10 Minutes Discussed Options Including: Group/Indiv Counseling ALETHEA ALMAZAN MD FACP FAC CCDS Jan 28, 2021 17:10
[2021-01-28] MEDS ORDERED: FUROSEMIDE 40 MG/4 ML INJ (LASIX) IVP NR (17:15)
[2021-01-28] MEDS: PIPERACILLIN/TAZOBACTAM (BULK) 4.5 GM in NS (IVPB) 100 ML IV SCH (20:45)
[2021-01-28] MEDS: ROSUVASTATIN 20 MG (CRESTOR) TABLET PO SCH (20:46)
[2021-01-29] MEDS: VANCOMYCIN 1500 MG/NS 500 ML IVPB IV SCH ×4 (01:37→13:40)
[2021-01-29] MEDS: PIPERACILLIN/TAZOBACTAM (BULK) 4.5 GM in NS (IVPB) 100 ML IV SCH ×3 (01:37→17:35)
[2021-01-29] MEDS ORDERED: VANCOMYCIN 1250 MG/NS 250 ML IVPB IV SCH ×2 (02:00)
[2021-01-29 05:34] LABS: HEMATOCRIT 45 % (40-54); MEAN CORPUSCULAR HEMOGLOBIN 29 pg (25-34); MEAN CORPUSCULAR HGB CONC 31 g/dL (32-36); MEAN CORPUSCULAR VOLUME 94 fL (80-99); PLATELET COUNT 363 10^3/uL (130-400); WHITE BLOOD COUNT 13.5 10^3/uL (4.3-11.0)
[2021-01-29 05:49] LABS: ALBUMIN 3.3 GM/DL (3.2-4.5)
[2021-01-29 05:50] LABS: POTASSIUM 4.9 MMOL/L (3.6-5.0)
[2021-01-29 05:51] LABS: CALCIUM 8.9 MG/DL (8.5-10.1)
[2021-01-29 05:52] LABS: TOTAL PROTEIN 6.8 GM/DL (6.4-8.2)
[2021-01-29 05:56] LABS: CREATININE SERUM 1.08 MG/DL (0.60-1.30)
[2021-01-29] MEDS: dexAMETHasone 6 MG TAB (DECADRON) PO SCH (06:42)
[2021-01-29] MEDS: FUROSEMIDE 40 MG/4 ML INJ (LASIX) IVP SCH ×2 (06:42→17:35)
[2021-01-29] MEDS: lisINopril 5 MG (PRINIVIL) TABLET PO SCH (08:51)
[2021-01-29] MEDS: ENOXAPARIN 40 MG/0.4 ML (LOVENOX) SYR SC SCH (08:51)
[2021-01-29] MEDS: SENNA W/DOCUSATE (SENOKOT S) TABLET PO SCH ×2 (08:51→19:15)
[2021-01-29] MEDS: KCL 10 MEQ TAB (MICRO K) PO SCH ×2 (08:51→17:35)
[2021-01-29] MEDS: ASPIRIN E.C. 81 MG (ECOTRIN) TAB PO SCH (08:51)
[2021-01-29] MEDS: PRASUGREL 10 MG (EFFIENT) TABLET PO SCH (09:02)
[2021-01-29] MEDS: RT-ALBUTEROL HFA 8.5 GM INHALER IH SCH ×2 (09:12→20:46)
--- NOTE | 2021-01-29 12:54 | Progress Note ---
Subjective Subjective/Events-last exam He is feeling a little better today and looks significantly more relaxed with no increased work of breathing this morning. Remains on 2 lpm supplemental oxygen. Focused Exam Lactate Level 01/29/21 05:25: Lactic Acid Level 2.17*H 01/29/21 07:28: Lactic Acid Level 2.50*H 01/29/21 10:20: Lactic Acid Level 2.11*H Lactic Acid Level Laboratory Tests Test 01/29/21 10:20 Lactic Acid Level 2.11 MMOL/L (0.50-2.00) *H Objective Exam Last Set of Vital Signs Vital Signs Date Time Temp Pulse Resp B/P (MAP) Pulse Ox O2 Delivery O2 Flow Rate FiO2 01/29/21 09:12 99 Nasal Cannula 2.00 01/29/21 08:00 36.0 105 22 98/74 (82) 01/25/21 21:25 28 Capillary Refill : Less Than 3 Seconds I&O Intake and Output 01/29/21 00:00 Intake Total 2550 ml Output Total 450 ml Balance 2100 ml Intake Oral 2550 ml Output Urine Total 450 ml # Voids 7 # Bowel Movements 1 General: Alert Lungs: Other (ronchi) Heart: Regular Rate Abdomen: Normal Bowel Sounds Extremities: No Edema Neuro: Normal Speech Results/Procedures Lab Laboratory Tests 01/28/21 14:30: Lactic Acid Level 2.57*H 01/28/21 17:10: Lactic Acid Level 2.72*H 01/28/21 19:29: Lactic Acid Level 2.76*H 01/28/21 23:45: Lactic Acid Level 2.31*H 01/29/21 05:25: White Blood Count 13.5H, Red Blood Count 4.80, Hemoglobin 14.0, Hematocrit 45, Mean Corpuscular Volume 94, Mean Corpuscular Hemoglobin 29, Mean Corpuscular Hemoglobin Concent 31L, Red Cell Distribution Width 17.8H, Platelet Count 363, Mean Platelet Volume 10.0, Sodium Level 133L, Potassium Level 4.9, Chloride Level 101, Carbon Dioxide Level 18L, Anion Gap 14, Blood Urea Nitrogen 48H, Creatinine 1.08, Estimat Glomerular Filtration Rate 73, BUN/Creatinine Ratio 44, Glucose Level 122H, Lactic Acid Level 2.17*H, Calcium Level 8.9, Corrected Calcium 9.5, Total Bilirubin 1.0, Aspartate Amino Transf (AST/SGOT) 51H, Alanine Aminotransferase (ALT/SGPT) 66H, Alkaline Phosphatase 129, Total Protein 6.8, Albumin 3.3 01/29/21 07:28: Lactic Acid Level 2.50*H 01/29/21 10:20: Lactic Acid Level 2.11*H Microbiology 01/28/21 MRSA Screen - Final, Complete MRSA not isolated 01/21/21 Blood Culture - Final, Complete No growth 01/21/21 Urine Culture - Final, Complete Gram Pos Mixed Bacterial [facility] NAME: YURIY MARTINI [facility] REC#: [id number] PT STATUS: REG ER : 1970 PHYSICIAN: ANN STRICKLAND APRN ADMIT DATE: 01/21/21/ER Signed Date of Exam:01/21/21 CHEST 1 VIEW, AP/PA ONLY INDICATION: Chest pain, COVID. COMPARISON: 01/09/2021. FINDINGS: There are severe five-lobe infiltrates which on the left have progressed particularly in the upper lobe. The heart is enlarged, and there is some vascular congestion. A component of edema could not be excluded. IMPRESSION: Worsened five-lobe infiltrates, increased heart size, and mild vascular congestion. No pleural fluid. Dictated by: Dictated on workstation # [id number] Dict: 01/21/211701 Trans: 01/21/211707 [id number] Interpreted by: UGO HASKINS Electronically signed by: UGO HASKINS 01/21/211707 NAME: YURIY MARTINI [facility] REC#: [id number] PT STATUS: REG ER : 1970 PHYSICIAN: ANN STRICKLAND APRN ADMIT DATE: 01/21/21/ER Signed Date of Exam:01/21/21 CT ANGIO CHEST W EXAMINATION: CT angiography of the chest. TECHNIQUE: Contrast enhanced thin section helical images were obtained through the chest with intravenous contrast timed for the optimal opacification of the arterial structures per CTA protocol. Post-processing, reconstructions and interpretation of angiographic images of the vessels was performed. 3D MIP reconstructions were performed and reviewed. All CT scans use one or more of the following dose optimizing techniques: automated exposure control, MA and/or KvP adjustment based on patient size and exam type or iterative reconstruction. HISTORY: Dyspnea, Covid. COMPARISON: CTA chest 01/09/2021. FINDINGS: Vascular: No filling defects within the pulmonary arteries. Thoracic aorta is normal in caliber. Calcification of the aorta and coronary vessels. Thyroid: The thyroid is normal. Mediastinum: Heart size is mildly enlarged with a small pericardial effusion. There are a few prominent mediastinal lymph nodes which are not pathologically enlarged. Lungs and airways: There is a large right pleural effusion. Patchy groundglass opacities throughout both lungs. No pneumothorax. The airways are normal. Upper abdomen: There is mild gallbladder wall thickening or pericholecystic fluid. Musculoskeletal: No suspicious osseous lesion or compression fracture. IMPRESSION: 1. No findings of pulmonary embolus. 2. Large right pleural effusion. 3. Patchy groundglass opacities throughout both lungs compatible with history of Covid 19 pneumonia. Dictated by: Dictated on workstation # [id number] Dict: 01/21/211835 Trans: 01/21/211849 [facility] [id number] Interpreted by: MATILDA DONALD DO Electronically signed by: MATILDA DONALD DO 01/21/211849 Assessment/Plan Assessment/Plan (1) COVID-19 Status: Acute Assessment & Plan: CTA chest neg for PE. Dexamethasone, on 2 lpm supplemental oxygen. 01/28 worsening work of breathing, repeat D dimer decreased, ABG with no hypoxia or hypercapnia. Repeat CXR pending. 01/29 CXR with right sided consolidation, see pneumonia dx. Day 8 dexamethasone. (2) Secondary pneumonia Status: Acute Assessment & Plan: CXR with worsening consolidation right base, with worsening clinical status and increased lactic acid on 01/28, suspect bacterial pneumonia, started on zosyn and vancomycin with improvement this am. (3) Acute on chronic heart failure Status: Acute Assessment & Plan: Appreciate Cardiology recommendations. 01/28 lasix decreased today due to suspicion of developing dehydration, increased work of breathing this am, so repeat BNP drawn today which was increased, appreciate Cardiology recommendations. Qualifiers: Qualified Codes: I50.23 - Acute on chronic systolic (congestive) heart failure (4) Cardiomyopathy Status: Chronic Qualifiers: Qualified Codes: I25.5 - Ischemic cardiomyopathy (5) Coronary artery disease without angina pectoris Status: Chronic Qualifiers: Qualified Codes: I25.10 - Atherosclerotic heart disease of [place] coronary artery without angina pectoris (6) DVT prophylaxis Status: Acute Assessment & Plan: Enoxaparin Clinical Quality Measures Smoking Cessation Counseling: Counseling-Symptomatic: 3-10 Minutes Discussed Options Including: Group/Indiv Counseling TANG TERRY MD Jan 29, 2021 12:54
--- NOTE | 2021-01-29 16:38 | Progress Note - Cardiology ---
Cardiology SOAP Progress Note Subjective: Feels somewhat less short of breath today No cp or palp or syncope No swelling Gen malaise and weakness present Objective: I&O/Vital Signs 01/29/21 01/29/21 01/29/21 01/29/21 07:00 08:00 08:30 09:12 Temp 36.0 Pulse 103 105 Resp 22 B/P (MAP) 98/74 (82) Pulse Ox 100 99 O2 Delivery Nasal Cannula Nasal Cannula Nasal Cannula O2 Flow Rate 2.00 2.00 2.00 01/29/21 13:00 Pulse 96 01/28/21 23:59 Intake Total 2050 ml Balance 2050 ml Weight (Pounds): 225 Weight (Ounces): 15.0 Weight (Calculated Kilograms): 102.267480 Constitutional: AAO x 3, well-developed, well-nourished Respiratory: No accessory muscle use Cardiovascular: regular rate-rhythm, S1 and S2, systolic murmur (2-3/6 MSM) Gastrointestional: No tender; soft; No guarding, No rebound; audible bowel sounds Extremities: No clubbing, No cyanosis, No significant edema Neurologic/Psychiatric: oriented x 3, other (moves all limbs equally) Results/Procedures: Labs Laboratory Tests 01/28/21 17:10: Lactic Acid Level 2.72*H 01/28/21 19:29: Lactic Acid Level 2.76*H 01/28/21 23:45: Lactic Acid Level 2.31*H 01/29/21 05:25: Lactic Acid Level 2.17*H, White Blood Count 13.5H, Red Blood Count 4.80, Hemoglobin 14.0, Hematocrit 45, Mean Corpuscular Volume 94, Mean Corpuscular Hemoglobin 29, Mean Corpuscular Hemoglobin Concent 31L, Red Cell Distribution Width 17.8H, Platelet Count 363, Mean Platelet Volume 10.0, Sodium Level 133L, Potassium Level 4.9, Chloride Level 101, Carbon Dioxide Level 18L, Anion Gap 14, Blood Urea Nitrogen 48H, Creatinine 1.08, Estimat Glomerular Filtration Rate 73, BUN/Creatinine Ratio 44, Glucose Level 122H, Calcium Level 8.9, Corrected Calcium 9.5, Total Bilirubin 1.0, Aspartate Amino Transf (AST/SGOT) 51H, Alanine Aminotransferase (ALT/SGPT) 66H, Alkaline Phosphatase 129, Total Protein 6.8, Albumin 3.3 01/29/21 07:28: Lactic Acid Level 2.50*H 01/29/21 10:20: Lactic Acid Level 2.11*H 01/29/21 13:20: Lactic Acid Level 1.98 Microbiology 01/28/21 MRSA Screen - Final, Complete MRSA not isolated 01/28/21 Blood Culture - Preliminary, Resulted No growth 01/21/21 Urine Culture - Final, Complete Gram Pos Mixed Bacterial Erika Laboratory Tests 01/28/21 05:22 01/29/21 05:25 Laboratory Tests 01/28/21 05:22 01/29/21 05:25 A/P: Assessment: Ac resp failure due to COVID pneumonia and CHF Covid pneumonia Acute on chronic systolic CHF - worsening of shortness of breath on 01/28/21 and elevated BNP S/P Single chamber defibrillator implantation on 10-30-2019. Functioning normally on interrogation of 12-08-20 CAD: - H/o [place] in late Jan 2019 (see below) - Card cath on 02/01/19: Coronary artery disease consisting of complete ostial occlusion of the left anterior descending artery to which successful percutaneous coronary intervention was carried out. Following deployment of [place]pine Xience 2.75 x 18 mm stent, there is no significant residual stenosis. A large obtuse marginal of the left circumflex shows 80% bifurcation stenosis in its distal portion. Right coronary artery is dominant and has mild disease. Marisol vated left ventricular end-diastolic pressure. Well preserved global left ventricular systolic function with ejection fraction approximately 55%. - Repeat intervention on 02-07-[address] Almaraz: balloon angioplasty to the ostium and proximal LAD with slow flow in the LAD with reestablishment of flow and good results. Mild disease in the circumflex and right coronary artery Dilated left ventricle with anterior wall hypokinesia to akinesia, estimated ejection fraction 30% - Last cardiac cath by Dr Almaraz on 09/17/20: Moderate to severe proximal and mid LAD, severe mid vessel disease of an OM, distal LAD fistula to the venous system / RV, dilated left ventricle with diffuse left ventricular hypokinesia ejection fraction 30% Ischemic cardiomyopathy. - Echo on 02/04/19: LVEF 40-45%, anteroseptal hypokinesis, mild conc LVH, RVSP 20 mmHg. LVEF 30% on cardiac cath of 02-07-19. - Echo of May 25, 2019 showed LVEF 30-35% - Echo of 12-08-20 showed LVEF 35-40%, mod to severe MR; mod TR; PASP 40-45 mmHg Transferred for consideration of CABG and repair of AV fistula and MV by Dr Almaraz to [facility] in September 2020. Not found to be a suitable candidate for any surgery due to continuing methamphetamine abuse Hyperlipidemia, by hx Tobaccoism, educated on smoking cessation (reports no usage in a month or two) Continued methamphetamine use - cessation advised (reports no usage in a month or two) Continued marijuana use - cessation advised (reports no usage in a month or two) H/O noncompliance with medications and f/u Plan: I interviewed and examine him today and reviewed his records. I discussed his case with Dr Angel today Continue current regimen. Monitor labs Clinical Quality Measures Smoking Cessation Counseling: Counseling-Symptomatic: 3-10 Minutes Discussed Options Including: Group/Indiv Counseling ALETHEA ALMAZAN MD FACP FAC CCDS Jan 29, 2021 16:38
[2021-01-29] MEDS: ROSUVASTATIN 20 MG (CRESTOR) TABLET PO SCH (20:55)
[2021-01-29] MEDS: guaiFENesin/CODEINE (ROBITUSSIN AC) 10ML UDC PO PRN (21:46)
[2021-01-30] MEDS ORDERED: TROUGH ORDER-PHARMACY XX NR (01:00)
[2021-01-30] MEDS: ALPRAZolam 0.25 MG (XANAX) TAB PO PRN (02:06)
[2021-01-30 02:22] LABS: HEMATOCRIT 46 % (40-54); HEMOGLOBIN 14.1 g/dL (13.3-17.7); MEAN CORPUSCULAR HEMOGLOBIN 29 pg (25-34); MEAN CORPUSCULAR HGB CONC 31 g/dL (32-36); MEAN CORPUSCULAR VOLUME 94 fL (80-99); MEAN PLATELET VOLUME 10.3 fL (9.0-12.2); PLATELET COUNT 381 10^3/uL (130-400); WHITE BLOOD COUNT 13.9 10^3/uL (4.3-11.0)
[2021-01-30 02:33] LABS: POTASSIUM 4.5 MMOL/L (3.6-5.0)
[2021-01-30 02:39] LABS: CREATININE SERUM 1.26 MG/DL (0.60-1.30)
[2021-01-30] MEDS: VANCOMYCIN 1500 MG/NS 500 ML IVPB IV SCH ×2 (02:53)
[2021-01-30] MEDS: PIPERACILLIN/TAZOBACTAM (BULK) 4.5 GM in NS (IVPB) 100 ML IV SCH ×3 (03:43→19:41)
[2021-01-30] MEDS: FUROSEMIDE 40 MG/4 ML INJ (LASIX) IVP SCH ×2 (06:24→17:30)
[2021-01-30] MEDS: dexAMETHasone 6 MG TAB (DECADRON) PO SCH (06:24)
[2021-01-30] MEDS: RT-ALBUTEROL HFA 8.5 GM INHALER IH SCH ×2 (08:50→21:18)
[2021-01-30] MEDS ORDERED: VANCOMYCIN 1500 MG/NS 500 ML IVPB IV SCH ×2 (09:00)
[2021-01-30] MEDS: lisINopril 5 MG (PRINIVIL) TABLET PO SCH (09:11)
[2021-01-30] MEDS: KCL 10 MEQ TAB (MICRO K) PO SCH ×2 (09:11→17:30)
[2021-01-30] MEDS: ASPIRIN E.C. 81 MG (ECOTRIN) TAB PO SCH (09:11)
[2021-01-30] MEDS: ENOXAPARIN 40 MG/0.4 ML (LOVENOX) SYR SC SCH (09:12)
[2021-01-30] MEDS: SENNA W/DOCUSATE (SENOKOT S) TABLET PO SCH ×2 (09:12→19:41)
[2021-01-30] MEDS: PRASUGREL 10 MG (EFFIENT) TABLET PO SCH (09:55)
--- NOTE | 2021-01-30 14:26 | Progress Note ---
Subjective Subjective/Events-last exam Afebrile, doing pretty well, walking in room without oxygen at times, but at time of my exam he is in chair with oxygen on and has increased work of breathing in spite of normal vitals. Focused Exam Lactate Level 01/29/21 07:28: Lactic Acid Level 2.50*H 01/29/21 10:20: Lactic Acid Level 2.11*H 01/29/21 13:20: Lactic Acid Level 1.98 Objective Exam Last Set of Vital Signs Vital Signs Date Time Temp Pulse Resp B/P (MAP) Pulse Ox O2 Delivery O2 Flow Rate FiO2 01/30/21 08:51 92 Nasal Cannula 2.00 01/30/21 08:00 36.8 107 22 108/55 (72) 01/25/21 21:25 28 Capillary Refill : Less Than 3 Seconds I&O Intake and Output 01/30/21 00:00 Intake Total 2787 ml Output Total 2300 ml Balance 487 ml Intake Oral 1910 ml IV Total 877 ml Output Urine Total 2300 ml # Voids 8 # Bowel Movements 1 General: Alert, Mild Distress Lungs: Other (rales) Heart: Regular Rate Neuro: Normal Speech Psych/Mental Status: Mood NL Results/Procedures Lab Laboratory Tests 01/30/21 01:50: White Blood Count 13.9H, Red Blood Count 4.88, Hemoglobin 14.1, Hematocrit 46, Mean Corpuscular Volume 94, Mean Corpuscular Hemoglobin 29, Mean Corpuscular Hemoglobin Concent 31L, Red Cell Distribution Width 18.0H, Platelet Count 381, Mean Platelet Volume 10.3, Sodium Level 132L, Potassium Level 4.5, Chloride Level 98, Carbon Dioxide Level 19L, Anion Gap 15H, Blood Urea Nitrogen 47H, Creatinine 1.26, Estimat Glomerular Filtration Rate 61, BUN/Creatinine Ratio 37, Glucose Level 133H, Calcium Level 9.0, Vancomycin Level Trough 19.8 Microbiology 01/28/21 MRSA Screen - Final, Complete MRSA not isolated 01/28/21 Blood Culture - Preliminary, Resulted No growth 01/21/21 Urine Culture - Final, Complete Gram Pos Mixed Bacterial [facility] NAME: YURIY MARTINI [facility] REC#: [id number] PT STATUS: REG ER : 1970 PHYSICIAN: ANN STRICKLAND APRN ADMIT DATE: 01/21/21/ER Signed Date of Exam:01/21/21 CHEST 1 VIEW, AP/PA ONLY INDICATION: Chest pain, COVID. COMPARISON: 01/09/2021. FINDINGS: There are severe five-lobe infiltrates which on the left have progressed particularly in the upper lobe. The heart is enlarged, and there is some vascular congestion. A component of edema could not be excluded. IMPRESSION: Worsened five-lobe infiltrates, increased heart size, and mild vascular congestion. No pleural fluid. Dictated by: Dictated on workstation # [id number] Dict: 01/21/211701 Trans: 01/21/211707 [id number] Interpreted by: UGO HASKINS Electronically signed by: UGO HASKINS 01/21/211707 NAME: YURIY MARTINI [facility] REC#: [id number] PT STATUS: REG ER : 1970 PHYSICIAN: ANN STRICKLAND APRN ADMIT DATE: 01/21/21/ER Signed Date of Exam:01/21/21 CT ANGIO CHEST W EXAMINATION: CT angiography of the chest. TECHNIQUE: Contrast enhanced thin section helical images were obtained through the chest with intravenous contrast timed for the optimal opacification of the arterial structures per CTA protocol. Post-processing, reconstructions and interpretation of angiographic images of the vessels was performed. 3D MIP reconstructions were performed and reviewed. All CT scans use one or more of the following dose optimizing techniques: automated exposure control, MA and/or KvP adjustment based on patient size and exam type or iterative reconstruction. HISTORY: Dyspnea, Covid. COMPARISON: CTA chest 01/09/2021. FINDINGS: Vascular: No filling defects within the pulmonary arteries. Thoracic aorta is normal in caliber. Calcification of the aorta and coronary vessels. Thyroid: The thyroid is normal. Mediastinum: Heart size is mildly enlarged with a small pericardial effusion. There are a few prominent mediastinal lymph nodes which are not pathologically enlarged. Lungs and airways: There is a large right pleural effusion. Patchy groundglass opacities throughout both lungs. No pneumothorax. The airways are normal. Upper abdomen: There is mild gallbladder wall thickening or pericholecystic fluid. Musculoskeletal: No suspicious osseous lesion or compression fracture. IMPRESSION: 1. No findings of pulmonary embolus. 2. Large right pleural effusion. 3. Patchy groundglass opacities throughout both lungs compatible with history of Covid 19 pneumonia. Dictated by: Dictated on workstation # [id number] Dict: 01/21/211835 Trans: 01/21/211849 [id number] [id number] Interpreted by: MATILDA DONALD DO Electronically signed by: MATILDA DONALD DO 01/21/211849 Assessment/Plan Assessment/Plan (1) COVID-19 Status: Acute Assessment & Plan: CTA chest neg for PE. Dexamethasone, on 2 lpm supplemental oxygen. 01/28 worsening work of breathing, repeat D dimer decreased, ABG with no hypoxia or hypercapnia. Repeat CXR pending. 01/29 CXR with right sided consolidation, see pneumonia dx. Day 8 dexamethasone. 01/30 day 9 dexamethasone, is able to tolerate room air at times (2) Secondary pneumonia Status: Acute Assessment & Plan: CXR with worsening consolidation right base, with worsening clinical status and increased lactic acid on 01/28, suspect bacterial pneumonia, started on zosyn and vancomycin with improvement this am. 01/30 no evidence of MRSA, d/c vanc, continue zosyn. (3) Acute on chronic heart failure Status: Acute Assessment & Plan: Appreciate Cardiology recommendations. 01/28 lasix decreased today due to suspicion of developing dehydration, increased work of breathing this am, so repeat BNP drawn today which was increased, appreciate Cardiology recommendations. 01/29 lasix increased back Qualifiers: Qualified Codes: I50.23 - Acute on chronic systolic (congestive) heart failure (4) Cardiomyopathy Status: Chronic Qualifiers: Qualified Codes: I25.5 - Ischemic cardiomyopathy (5) Coronary artery disease without angina pectoris Status: Chronic Qualifiers: Qualified Codes: I25.10 - Atherosclerotic heart disease of [place] coronary artery without angina pectoris (6) DVT prophylaxis Status: Acute Assessment & Plan: Enoxaparin Clinical Quality Measures Smoking Cessation Counseling: Counseling-Symptomatic: 3-10 Minutes Discussed Options Including: Group/Indiv Counseling TANG TERRY MD Jan 30, 2021 14:26
[2021-01-30] MEDS: ROSUVASTATIN 20 MG (CRESTOR) TABLET PO SCH (19:41)
[2021-01-31 05:09] LABS: HEMATOCRIT 45 % (40-54); HEMOGLOBIN 13.8 g/dL (13.3-17.7); MEAN CORPUSCULAR HEMOGLOBIN 29 pg (25-34); MEAN CORPUSCULAR HGB CONC 31 g/dL (32-36); MEAN CORPUSCULAR VOLUME 94 fL (80-99); MEAN PLATELET VOLUME 10.5 fL (9.0-12.2); PLATELET COUNT 349 10^3/uL (130-400); WHITE BLOOD COUNT 14.4 10^3/uL (4.3-11.0)
[2021-01-31 05:23] LABS: POTASSIUM 4.3 MMOL/L (3.6-5.0)
[2021-01-31 05:24] LABS: CALCIUM 8.9 MG/DL (8.5-10.1)
[2021-01-31 05:29] LABS: CREATININE SERUM 1.05 MG/DL (0.60-1.30)
[2021-01-31] MEDS: FUROSEMIDE 40 MG/4 ML INJ (LASIX) IVP SCH ×2 (05:45→17:38)
[2021-01-31] MEDS: dexAMETHasone 6 MG TAB (DECADRON) PO SCH (05:45)
[2021-01-31] MEDS: PIPERACILLIN/TAZOBACTAM (BULK) 4.5 GM in NS (IVPB) 100 ML IV SCH ×3 (05:45→19:02)
[2021-01-31] MEDS: KCL 10 MEQ TAB (MICRO K) PO SCH ×2 (07:57→17:38)
[2021-01-31] MEDS: SENNA W/DOCUSATE (SENOKOT S) TABLET PO SCH ×2 (07:58→19:33)
[2021-01-31] MEDS: ASPIRIN E.C. 81 MG (ECOTRIN) TAB PO SCH (07:58)
[2021-01-31] MEDS: ENOXAPARIN 40 MG/0.4 ML (LOVENOX) SYR SC SCH (07:58)
[2021-01-31] MEDS: PRASUGREL 10 MG (EFFIENT) TABLET PO SCH (07:58)
[2021-01-31] MEDS: lisINopril 5 MG (PRINIVIL) TABLET PO SCH ×2 (07:59→08:00)
[2021-01-31] MEDS: RT-ALBUTEROL HFA 8.5 GM INHALER IH SCH (10:20)
--- NOTE | 2021-01-31 13:18 | Progress Note - Hospitalist ---
Subjective HPI/CC On Admission Date Seen by Provider: Jan 31, 2021 Time Seen by Provider: 12:30 CC: SOB HPI: This is a 50yoWM hx of CAD defibrillator placement at October of last year who presented with SOB found to have Covid on 01/09/21. He was found to have a right pleural effusion and having no significant issues but he was placed on protocol. He will be moved down to 4th floor. Subjective/Events-last exam Patient sleeping soundly upon arrival appears to be in no acute distress staff report no significant changes in condition and no complaints of chest pain. Focused Exam Lactate Level 01/29/21 07:28: Lactic Acid Level 2.50*H 01/29/21 10:20: Lactic Acid Level 2.11*H 01/29/21 13:20: Lactic Acid Level 1.98 Objective Exam Vital Signs Vital Signs Date Time Temp Pulse Resp B/P (MAP) Pulse Ox O2 Delivery O2 Flow Rate FiO2 01/31/21 13:00 106 01/31/21 11:04 36.0 20 118/79 (92) 96 Room Air 2.00 01/25/21 21:25 28 Capillary Refill : Less Than 3 Seconds General Appearance: No Apparent Distress, Chronically ill Respiratory: Other (Clear anteriorly decreased breath sounds in the bases with a few fine rales no wheezing noted. ) Cardiovascular: Regular Rate, Rhythm, Gallop/S3 Results/Procedures Lab Laboratory Tests 01/31/21 04:51 Patient resulted labs reviewed. Assessment/Plan Assessment and Plan Assess & Plan/Chief Complaint Assessment/Plan Assessment/Plan (1) COVID-19 Status: Acute Assessment & Plan: CTA chest neg for PE. Dexamethasone, on 2 lpm supplemental oxygen. 01/28 worsening work of breathing, repeat D dimer decreased, ABG with no hypoxia or hypercapnia. Repeat CXR pending. 01/29 CXR with right sided consolidation, see pneumonia dx. Day 8 dexamethasone. 01/30 day 9 dexamethasone, is able to tolerate room air at times 01/31 no change in respiratory status still short of breath and desaturation with activity does while at rest. In regards to heart failure component defer to cardiology. (2) Secondary pneumonia Status: Acute Assessment & Plan: CXR with worsening consolidation right base, with worsening clinical status and increased lactic acid on 01/28, suspect bacterial pneumonia, started on zosyn and vancomycin with improvement this am. 01/30 no evidence of MRSA, d/c vanc, continue zosyn. (3) Acute on chronic heart failure Status: Acute Assessment & Plan: Appreciate Cardiology recommendations. 01/28 lasix decreased today due to suspicion of developing dehydration, increased work of breathing this am, so repeat BNP drawn today which was increased, appreciate Cardiology recommendations. 01/29 lasix increased back Qualifiers: Qualified Codes: I50.23 - Acute on chronic systolic (congestive) heart failure (4) Cardiomyopathy Status: Chronic Qualifiers: Qualified Codes: I25.5 - Ischemic cardiomyopathy (5) Coronary artery disease without angina pectoris Status: Chronic Qualifiers: Qualified Codes: I25.10 - Atherosclerotic heart disease of [place] coronary artery without angina pectoris (6) DVT prophylaxis Status: Acute Assessment & Plan: Enoxaparin Clinical Quality Measures Smoking Cessation Counseling: Counseling-Symptomatic: 3-10 Minutes Discussed Options Including: Group/Indiv Counseling WHITNEY BECERRA MD Jan 31, 2021 13:18
[2021-01-31] MEDS: ROSUVASTATIN 20 MG (CRESTOR) TABLET PO SCH (19:33)
[2021-01-31 20:01] VITALS: BP 113/70
[2021-02-01] MEDS: ALPRAZolam 0.25 MG (XANAX) TAB PO PRN ×2 (00:29→20:33)
[2021-02-01] MEDS: RT-ALBUTEROL HFA 8.5 GM INHALER IH PRN ×2 (00:29→14:19)
[2021-02-01] MEDS: guaiFENesin/CODEINE (ROBITUSSIN AC) 10ML UDC PO PRN (00:29)
[2021-02-01] MEDS: FUROSEMIDE 40 MG/4 ML INJ (LASIX) IVP SCH ×2 (04:48→17:51)
[2021-02-01] MEDS: dexAMETHasone 6 MG TAB (DECADRON) PO SCH (04:48)
[2021-02-01] MEDS: PIPERACILLIN/TAZOBACTAM (BULK) 4.5 GM in NS (IVPB) 100 ML IV SCH ×3 (04:48→19:34)
[2021-02-01] MEDS: ASPIRIN E.C. 81 MG (ECOTRIN) TAB PO SCH (08:56)
[2021-02-01] MEDS: PRASUGREL 10 MG (EFFIENT) TABLET PO SCH (08:56)
[2021-02-01] MEDS: KCL 10 MEQ TAB (MICRO K) PO SCH ×2 (08:56→17:51)
[2021-02-01] MEDS: ENOXAPARIN 40 MG/0.4 ML (LOVENOX) SYR SC SCH (08:56)
[2021-02-01] MEDS: SENNA W/DOCUSATE (SENOKOT S) TABLET PO SCH ×2 (08:57→19:34)
[2021-02-01] MEDS: lisINopril 5 MG (PRINIVIL) TABLET PO SCH (08:57)
--- NOTE | 2021-02-01 10:21 | Progress Note - Hospitalist ---
Subjective HPI/CC On Admission Date Seen by Provider: Feb 01, 2021 Time Seen by Provider: 09:30 CC: SOB HPI: This is a 50yoWM hx of CAD defibrillator placement at October of last year who presented with SOB found to have Covid on 01/09/21. He was found to have a right pleural effusion and having no significant issues but he was placed on protocol. He will be moved down to 4th floor. Subjective/Events-last exam Patient awake and alert feeling better today. Blood pressure was in the 90 systolic range so his lisinopril was held this morning but metoprolol was given. He said no chest pain or palpitations he has been able to get up in the room and is motivated to move denies lightheadedness dizziness syncope or presyncope. He said no chest pain denies orthopnea or PND. Focused Exam Lactate Level 01/29/21 10:20: Lactic Acid Level 2.11*H 01/29/21 13:20: Lactic Acid Level 1.98 Objective Exam Vital Signs Vital Signs Date Time Temp Pulse Resp B/P (MAP) Pulse Ox O2 Delivery O2 Flow Rate FiO2 02/01/21 08:09 35.8 102 22 103/69 (80) 97 Nasal Cannula 1.00 01/31/21 20:01 21 Capillary Refill : Less Than 3 Seconds General Appearance: No Apparent Distress, Chronically ill Respiratory: No Accessory Muscle Use, No Respiratory Distress, Other (Breath sounds little coarse bilaterally but no wheezes rales or rhonchi appreciated.) Cardiovascular: Regular Rate, Rhythm, Gallop/S3, Gallop/S4 Results/Procedures Lab Patient resulted labs reviewed. Assessment/Plan Assessment and Plan Assess & Plan/Chief Complaint Assessment/Plan Assessment/Plan (1) COVID-19 Status: Acute Assessment & Plan: CTA chest neg for PE. Dexamethasone, on 2 lpm supplemental oxygen. 01/28 worsening work of breathing, repeat D dimer decreased, ABG with no hypoxia or hypercapnia. Repeat CXR pending. 01/29 CXR with right sided consolidation, see pneumonia dx. Day 8 dexamethasone. 01/30 day 9 dexamethasone, is able to tolerate room air at times 01/31 no change in respiratory status still short of breath and desaturation with activity does while at rest. In regards to heart failure component defer to cardiology. Status02/01 improving patient still has significant deconditioning from combination of his underlying cardiomyopathy and recent Covid infection.With improvement in respiratory status we will start Decadron taper which should be able to be done over to several days considering this is day 10. (2) Secondary pneumonia Status: Acute Assessment & Plan: CXR with worsening consolidation right base, with worsening clinical status and increased lactic acid on 01/28, suspect bacterial pneumonia, started on zosyn and vancomycin with improvement this am. 01/30 no evidence of MRSA, d/c vanc, continue zosyn. (3) Acute on chronic heart failure Status: Acute Assessment & Plan: Appreciate Cardiology recommendations. 01/28 lasix decreased today due to suspicion of developing dehydration, increased work of breathing this am, so repeat BNP drawn today which was increased, appreciate Cardiology recommendations. 01/29 lasix increased back Qualifiers: Qualified Codes: I50.23 - Acute on chronic systolic (congestive) heart failure (4) Cardiomyopathy Status: Chronic Qualifiers: Qualified Codes: I25.5 - Ischemic cardiomyopathy (5) Coronary artery disease without angina pectoris Status: Chronic Qualifiers: Qualified Codes: I25.10 - Atherosclerotic heart disease of [place] coronary artery without angina pectoris (6) DVT prophylaxis Status: Acute Assessment & Plan: Enoxaparin Clinical Quality Measures Smoking Cessation Counseling: Counseling-Symptomatic: 3-10 Minutes Discussed Options Including: Group/Indiv Counseling WHITNEY BECERRA MD Feb 01, 2021 10:21
[2021-02-01] MEDS: ROSUVASTATIN 20 MG (CRESTOR) TABLET PO SCH (19:34)
[2021-02-02] MEDS: guaiFENesin/CODEINE (ROBITUSSIN AC) 10ML UDC PO PRN (04:12)
[2021-02-02] MEDS: RT-ALBUTEROL HFA 8.5 GM INHALER IH PRN (04:12)
[2021-02-02] MEDS: PIPERACILLIN/TAZOBACTAM (BULK) 4.5 GM in NS (IVPB) 100 ML IV SCH ×2 (04:13→11:32)
[2021-02-02] MEDS: dexAMETHasone 6 MG TAB (DECADRON) PO SCH (05:43)
[2021-02-02] MEDS: FUROSEMIDE 40 MG/4 ML INJ (LASIX) IVP SCH ×2 (05:43→17:31)
[2021-02-02] MEDS: ASPIRIN E.C. 81 MG (ECOTRIN) TAB PO SCH (09:02)
[2021-02-02] MEDS: lisINopril 5 MG (PRINIVIL) TABLET PO SCH (09:02)
[2021-02-02] MEDS: ENOXAPARIN 40 MG/0.4 ML (LOVENOX) SYR SC SCH (09:02)
[2021-02-02] MEDS: KCL 10 MEQ TAB (MICRO K) PO SCH ×2 (09:02→17:31)
[2021-02-02] MEDS: PRASUGREL 10 MG (EFFIENT) TABLET PO SCH (09:02)
[2021-02-02] MEDS: SENNA W/DOCUSATE (SENOKOT S) TABLET PO SCH ×2 (09:02→20:59)
--- NOTE | 2021-02-02 11:55 | Progress Note - Hospitalist ---
Subjective HPI/CC On Admission Date Seen by Provider: Feb 02, 2021 Time Seen by Provider: 10:00 CC: SOB HPI: This is a 50yoWM hx of CAD defibrillator placement at October of last year who presented with SOB found to have Covid on 01/09/21. He was found to have a right pleural effusion and having no significant issues but he was placed on protocol. He will be moved down to 4th floor. Subjective/Events-last exam Pt doing a lot better Zosyn maintained for pneumonia WC 14.4 DC isolation since he is out of that contagious status Remains on room air at 1 liter Placement will be pursued Review of Systems General: Fatigue Pulmonary: Dyspnea Objective Exam Vital Signs Vital Signs Date Time Temp Pulse Resp B/P (MAP) Pulse Ox O2 Delivery O2 Flow Rate FiO2 02/03/21 01:00 100 02/02/21 20:00 Room Air 02/02/21 20:00 36.0 18 126/84 (98) 99 02/02/21 09:04 1.00 01/31/21 20:01 21 Capillary Refill : Less Than 3 Seconds General Appearance: No Apparent Distress, WD/WN, Chronically ill Respiratory: No Accessory Muscle Use, No Respiratory Distress, Decreased Breath Sounds Cardiovascular: Regular Rate, Rhythm Neurologic/Psychiatric: Alert, Oriented x3, Depressed Affect Results/Procedures Lab Patient resulted labs reviewed. Assessment/Plan Assessment and Plan Assess & Plan/Chief Complaint Assessment: COVID-19 PNA -chest xray worsened 5 lobe infiltrates -CT angio chest negative for PE, groundglass opacities consistent with COVID-19 PNA -albuterol nebs -decadron -titrate oxygen to keep sat's >90 Acute on Chronic Systolic HF -BNP elevated -cardiology following -lasix -continue to monitor CAD s/p cardiac cath's multiple stents placed -cardiology following -prasugrel Ischemic cardiomyopathy. -last echo 12-08-20 showed LVEF of 35-40% -order new echo today Mod to severe MR - per echo of 12-08-20 -monitor H/O multiple [place]'s -cardiology following DVT ppx -lovenox HLP -monitor Polysubstance abuse -uds negative -encouraged continued abstinence Tobacco use -encouraged continued abstinence History of medication noncompliance -stressed importance of being compliant with meds and followup 01/25/2021: Supportive care Oxygen High risk for decompensation 02/02/2021: Supportive care IV antibiotics Oxygen supplementation DC isolation Clinical Quality Measures Smoking Cessation Counseling: Counseling-Symptomatic: 3-10 Minutes Discussed Options Including: Group/Indiv Counseling SOFIA HANKINS DO Feb 02, 2021 11:55
[2021-02-02] MEDS: ROSUVASTATIN 20 MG (CRESTOR) TABLET PO SCH (20:41)
[2021-02-03 05:27] LABS: BASOPHILS % (AUTO) 0 % (0-10); EOSINOPHILS % (AUTO) 0 % (0-10); HEMATOCRIT 45 % (40-54); HEMOGLOBIN 13.8 g/dL (13.3-17.7); LYMPHOCYTES # (AUTO) 1.5 10^3/uL (1.0-4.0); LYMPHOCYTES % (AUTO) 9 % (12-44); MEAN CORPUSCULAR HEMOGLOBIN 29 pg (25-34); MEAN CORPUSCULAR HGB CONC 31 g/dL (32-36); MEAN CORPUSCULAR VOLUME 93 fL (80-99); MEAN PLATELET VOLUME 10.4 fL (9.0-12.2); MONOCYTES % (AUTO) 6 % (0-12); NEUTROPHILS # (AUTO) 14.3 10^3/uL (1.8-7.8); NEUTROPHILS % (AUTO) 84 % (42-75); PLATELET COUNT 264 10^3/uL (130-400)
[2021-02-03 05:42] LABS: ALBUMIN 3.3 GM/DL (3.2-4.5)
[2021-02-03 05:43] LABS: POTASSIUM 4.2 MMOL/L (3.6-5.0)
[2021-02-03 05:44] LABS: CALCIUM 9.1 MG/DL (8.5-10.1)
[2021-02-03 05:45] LABS: ANISOCYTOSIS SLIGHT; BAND NEUTROPHILS 1 %; LYMPHOCYTES % (MANUAL) 2 %; MONOCYTES % (MANUAL) 4 %; NEUTROPHILS % (MANUAL) 93 %; POLYCHROMASIA SLIGHT; TOTAL PROTEIN 6.6 GM/DL (6.4-8.2)
[2021-02-03 05:47] LABS: BILIRUBIN,TOTAL 1.2 MG/DL (0.1-1.0)
[2021-02-03 05:49] LABS: CREATININE SERUM 0.97 MG/DL (0.60-1.30)
[2021-02-03] MEDS: dexAMETHasone 6 MG TAB (DECADRON) PO SCH (05:56)
[2021-02-03] MEDS: FUROSEMIDE 40 MG/4 ML INJ (LASIX) IVP SCH ×2 (05:56→17:02)
[2021-02-03] MEDS: guaiFENesin/CODEINE (ROBITUSSIN AC) 10ML UDC PO PRN (06:59)
[2021-02-03] MEDS: ENOXAPARIN 40 MG/0.4 ML (LOVENOX) SYR SC SCH (08:05)
[2021-02-03] MEDS: KCL 10 MEQ TAB (MICRO K) PO SCH ×2 (08:05→17:02)
[2021-02-03] MEDS: PRASUGREL 10 MG (EFFIENT) TABLET PO SCH (08:05)
[2021-02-03] MEDS: ASPIRIN E.C. 81 MG (ECOTRIN) TAB PO SCH (08:05)
[2021-02-03] MEDS: lisINopril 5 MG (PRINIVIL) TABLET PO SCH (08:05)
[2021-02-03] MEDS: SENNA W/DOCUSATE (SENOKOT S) TABLET PO SCH ×2 (08:08→19:56)
--- NOTE | 2021-02-03 09:14 | Diagnostic Imaging Report ---
Indication: Pneumonia AP view of the chest is obtained with comparison made to study of 01/28/2021. There has been worsening of extensive bilateral mixed interstitial and alveolar infiltrates. There is no pneumothorax. No definite pleural fluid is seen. IMPRESSION: Worsening bilateral pulmonary infiltrates likely due to pneumonia. Dictated by: Dictated on workstation # [id number]
--- NOTE | 2021-02-03 10:52 | Progress Note - Hospitalist ---
Subjective HPI/CC On Admission Date Seen by Provider: Feb 03, 2021 Time Seen by Provider: 10:00 CC: SOB HPI: This is a 50yoWM hx of CAD defibrillator placement at October of last year who presented with SOB found to have Covid on 01/09/21. He was found to have a right pleural effusion and having no significant issues but he was placed on protocol. He will be moved down to 4th floor. Subjective/Events-last exam Pt doing okay IV antibiotics completed No oxygen required right now but oxygen study performed it appears he needs 1-2 L Awaiting placement Review of Systems General: Fatigue Objective Exam Vital Signs Vital Signs Date Time Temp Pulse Resp B/P (MAP) Pulse Ox O2 Delivery O2 Flow Rate FiO2 02/04/21 04:42 36.6 102 20 106/75 (85) 92 Room Air 02/04/21 00:19 1.00 01/31/21 20:01 21 Capillary Refill : Less Than 3 Seconds General Appearance: No Apparent Distress, WD/WN, Chronically ill Respiratory: Decreased Breath Sounds Cardiovascular: Regular Rate, Rhythm Neurologic/Psychiatric: Alert, Oriented x3, Depressed Affect Results/Procedures Lab Patient resulted labs reviewed. Assessment/Plan Assessment and Plan Assess & Plan/Chief Complaint Assessment: COVID-19 PNA -chest xray worsened 5 lobe infiltrates -CT angio chest negative for PE, groundglass opacities consistent with COVID-19 PNA -albuterol nebs -decadron -titrate oxygen to keep sat's >90 Acute on Chronic Systolic HF -BNP elevated -cardiology following -lasix -continue to monitor CAD s/p cardiac cath's multiple stents placed -cardiology following -prasugrel Ischemic cardiomyopathy. -last echo 12-08-20 showed LVEF of 35-40% -order new echo today Mod to severe MR - per echo of 12-08-20 -monitor H/O multiple [place]'s -cardiology following DVT ppx -lovenox HLP -monitor Polysubstance abuse -uds negative -encouraged continued abstinence Tobacco use -encouraged continued abstinence History of medication noncompliance -stressed importance of being compliant with meds and followup 01/25/2021: Supportive care Oxygen High risk for decompensation 02/02/2021: Supportive care IV antibiotics Oxygen supplementation DC isolation 02/03/2021: Supportive care Oxygen evaluation Monitor closely Clinical Quality Measures Smoking Cessation Counseling: Counseling-Symptomatic: 3-10 Minutes Discussed Options Including: Group/Indiv Counseling SOFIA HANKINS DO Feb 03, 2021 10:52
[2021-02-03 16:13] VITALS: BP 95/66
[2021-02-03 20:11] VITALS: BP 103/72
[2021-02-03] MEDS: ROSUVASTATIN 20 MG (CRESTOR) TABLET PO SCH (20:24)
[2021-02-04 00:19] VITALS: BP 95/66
[2021-02-04 04:42] VITALS: BP 106/75
[2021-02-04 06:07] LABS: BASOPHILS % (AUTO) 0 % (0-10); EOSINOPHILS % (AUTO) 0 % (0-10); HEMATOCRIT 43 % (40-54); HEMOGLOBIN 13.3 g/dL (13.3-17.7); LYMPHOCYTES # (AUTO) 1.6 10^3/uL (1.0-4.0); LYMPHOCYTES % (AUTO) 9 % (12-44); MEAN CORPUSCULAR HEMOGLOBIN 29 pg (25-34); MEAN CORPUSCULAR HGB CONC 31 g/dL (32-36); MEAN CORPUSCULAR VOLUME 93 fL (80-99); MEAN PLATELET VOLUME 10.4 fL (9.0-12.2); MONOCYTES # (AUTO) 0.9 10^3/uL (0.0-1.0); MONOCYTES % (AUTO) 5 % (0-12); NEUTROPHILS # (AUTO) 15.5 10^3/uL (1.8-7.8); NEUTROPHILS % (AUTO) 85 % (42-75); PLATELET COUNT 234 10^3/uL (130-400); WHITE BLOOD COUNT 18.2 10^3/uL (4.3-11.0)
[2021-02-04] MEDS: FUROSEMIDE 40 MG/4 ML INJ (LASIX) IVP SCH ×2 (06:08→16:17)
[2021-02-04] MEDS: dexAMETHasone 6 MG TAB (DECADRON) PO SCH (06:09)
[2021-02-04 06:23] LABS: POTASSIUM 4.3 MMOL/L (3.6-5.0)
[2021-02-04 06:24] LABS: CALCIUM 8.9 MG/DL (8.5-10.1)
[2021-02-04 06:25] LABS: TOTAL PROTEIN 6.2 GM/DL (6.4-8.2)
[2021-02-04 06:27] LABS: BILIRUBIN,TOTAL 0.9 MG/DL (0.1-1.0)
[2021-02-04 06:29] LABS: CREATININE SERUM 0.86 MG/DL (0.60-1.30)
[2021-02-04] MEDS: guaiFENesin/CODEINE (ROBITUSSIN AC) 10ML UDC PO PRN (07:21)
[2021-02-04] MEDS: KCL 10 MEQ TAB (MICRO K) PO SCH ×2 (07:22→16:18)
[2021-02-04] MEDS: ASPIRIN E.C. 81 MG (ECOTRIN) TAB PO SCH (07:22)
[2021-02-04] MEDS: SENNA W/DOCUSATE (SENOKOT S) TABLET PO SCH ×2 (07:22→19:28)
[2021-02-04] MEDS: PRASUGREL 10 MG (EFFIENT) TABLET PO SCH (07:22)
[2021-02-04] MEDS: lisINopril 5 MG (PRINIVIL) TABLET PO SCH (07:23)
[2021-02-04] MEDS: ENOXAPARIN 40 MG/0.4 ML (LOVENOX) SYR SC SCH (07:23)
[2021-02-04 08:00] VITALS: BP 104/70
[2021-02-04 12:00] VITALS: BP 100/68
[2021-02-04] MEDS ORDERED: LISI-729 PO (12:21)
[2021-02-04] MEDS ORDERED: POTA10TA6 PO (12:21)
[2021-02-04] MEDS ORDERED: PRAS10TA10 PO (12:21)
[2021-02-04] MEDS ORDERED: ASPI-1238 PO (12:21)
[2021-02-04] MEDS ORDERED: ROSU20TA32 PO (12:21)
[2021-02-04] MEDS ORDERED: MTP25TSR PO (12:21)
[2021-02-04] MEDS ORDERED: FURO-124 PO (12:21)
[2021-02-04] MEDS ORDERED: DEXA6TAB PO (12:21)
--- NOTE | 2021-02-04 12:21 | Discharge Summary ---
Discharge Summary Hospital Course Was the Problem List Reviewed?: Yes Problems/Dx: (1) Acute on chronic combined systolic and diastolic congestive heart failure (2) Coronary artery disease without angina pectoris Status: Chronic Qualifiers: Qualified Codes: I25.10 - Atherosclerotic heart disease of [place] coronary artery without angina pectoris (3) Cardiomyopathy Status: Chronic Qualifiers: Qualified Codes: I25.5 - Ischemic cardiomyopathy (4) Mitral regurgitation (5) Pulmonary hypertension (6) Cardiac defibrillator in situ Hospital Course Date of Admission: Jan 21, 2021 at 19:00 Admission Diagnosis : Family Physician/Provider: Luis Plunkett MD Date of Discharge: 02/04/21 Discharge Diagnosis: Acute exacerbation of congestive heart failure, valvular heart disease, history of meth use, homelessness, COVID-19 pneumonia, hypoxia Hospital Course: Hospital Course: Pt had a lengthy hospital course after he was admitted for Covid-19 and exacerbation of heart failure. He was found to have minimal symptoms of Covid-19 except for hypoxia and did require oxygen supplementation and he will be on one liter continuous and two liters during exertion. He will require valve replacement surgery. He will be able to recover from Covid and then have that surgery as an outpatient at [place]. Labs and Pending Lab Test: Laboratory Tests 02/04/21 05:54: White Blood Count 18.2H, Red Blood Count 4.59, Hemoglobin 13.3, Hematocrit 43, Mean Corpuscular Volume 93, Mean Corpuscular Hemoglobin 29, Mean Corpuscular Hemoglobin Concent 31L, Red Cell Distribution Width 18.0H, Platelet Count 234, Mean Platelet Volume 10.4, Immature Granulocyte % (Auto) 1, Neutrophils (%) (Auto) 85H, Lymphocytes (%) (Auto) 9L, Monocytes (%) (Auto) 5, Eosinophils (%) (Auto) 0, Basophils (%) (Auto) 0, Neutrophils # (Auto) 15.5H, Lymphocytes # (Auto) 1.6, Monocytes # (Auto) 0.9, Eosinophils # (Auto) 0.0, Basophils # (Auto) 0.0, Immature Granulocyte # (Auto) 0.2H, Sodium Level 131L, Potassium Level 4.3, Chloride Level 99, Carbon Dioxide Level 23, Anion Gap 9, Blood Urea Nitrogen 42H , Creatinine 0.86, Estimat Glomerular Filtration Rate 95, BUN/Creatinine Ratio 49, Glucose Level 136H, Calcium Level 8.9, Corrected Calcium 9.7, Total Bilirubin 0.9, Aspartate Amino Transf (AST/SGOT) 38H, Alanine Aminotransferase (ALT/SGPT) 67H, Alkaline Phosphatase 225H, Total Protein 6.2L, Albumin 3.0L Microbiology 01/28/21 MRSA Screen - Final, Complete MRSA not isolated 01/28/21 Blood Culture - Final, Complete No growth 01/21/21 Urine Culture - Final, Complete Gram Pos Mixed Bacterial Erika Home Meds Active Reported Prasugrel HCl 10 Mg Tablet 10 Mg PO DAILY LAST FILLED 12-06-2020 #30 DAY SUPPLY Assessment/Pt Instructions [facility] in 1 week Discharge Planning: <30 minutes discharge planning Discharge Instructions Discharge Diet: Cardiac Diet Discharge Physical Examination Vital Signs Vital Signs Date Time Temp Pulse Resp B/P (MAP) Pulse Ox O2 Delivery O2 Flow Rate FiO2 02/04/21 08:30 Nasal Cannula 2.00 02/04/21 08:00 36.0 102 24 104/70 (81) 96 01/31/21 20:01 21 General Appearance: No Apparent Distress, WD/WN, Chronically ill Allergies: Coded Allergies: No Known Drug Allergies (Unverified , 05/29/11) Discharge Summary Date of Admission Jan 21, 2021 at 19:00 Date of Discharge Discharge Date: Feb 04, 2021 Admission Diagnosis Assessment: COVID-19 pneumonia CAD Cardiomyopathy Former meth use Valvular heart disease Plan: Transfer to fourth floor Oxygen Protocol meds Comfort Measures/ Time spent on discussion (min): 5 Discharge Diagnosis Assessment: COVID-19 PNA -chest xray worsened 5 lobe infiltrates -CT angio chest negative for PE, groundglass opacities consistent with COVID-19 PNA -albuterol nebs -decadron -titrate oxygen to keep sat's >90 Acute on Chronic Systolic HF -BNP elevated -cardiology following -lasix -continue to monitor CAD s/p cardiac cath's multiple stents placed -cardiology following -prasugrel Ischemic cardiomyopathy. -last echo 12-08-20 showed LVEF of 35-40% -order new echo today Mod to severe MR - per echo of 12-08-20 -monitor H/O multiple WI's -cardiology following DVT ppx -lovenox HLP -monitor Polysubstance abuse -uds negative -encouraged continued abstinence Tobacco use -encouraged continued abstinence History of medication noncompliance -stressed importance of being compliant with meds and followup 01/25/2021: Supportive care Oxygen High risk for decompensation 02/02/2021: Supportive care IV antibiotics Oxygen supplementation DC isolation 02/03/2021: Supportive care Oxygen evaluation Monitor closely (1) Acute on chronic combined systolic and diastolic congestive heart failure Assessment & Plan: He has been receiving intravenous furosemide. It is difficult to gauge the symptoms due to the active Covid infection. His chest x- ray looks worse today which could be related to the Covid infection. Continue with beta-cheryl and IV furosemide. (2) Coronary artery disease without angina pectoris Status: Chronic Assessment & Plan: Troponin level was negative. He is not having any typical angina. We will continue aspirin, Prasugrel, and beta-cheryl. His LDL level is elevated. I will start him on rosuvastatin. Qualifiers: Qualified Codes: I25.10 - Atherosclerotic heart disease of [place] coronary artery without angina pectoris (3) Cardiomyopathy Status: Chronic Assessment & Plan: He had moderate left ventricular systolic dysfunction on e chocardiogram earlier this year. We will continue metoprolol succinate and lisinopril. At some point, we may want to consider adding an aldosterone antagonist. Given the acute Covid infection, I will hold off on adding this medication for the time being. We may want to consider a follow-up echocardiogram after he recovers from Covid infection. Given his negative troponin level, it is unlikely the Covid infection has caused myocarditis. Qualifiers: Qualified Codes: I25.5 - Ischemic cardiomyopathy (4) Mitral regurgitation Assessment & Plan: He had moderate to severe mitral regurgitation on the same echocardiogram outlined above. This is most likely functional mitral regurgitation related to the cardiomyopathy. This should improve if his cardiomyopathy improved. There is no indication for acute intervention at this time. (5) Pulmonary hypertension Assessment & Plan: Most likely related to the chronic heart failure. (6) Cardiac defibrillator in situ Assessment & Plan: Continue to monitor as an outpatient. Clinical Quality Measures Smoking Cessation Counseling: Counseling-Symptomatic: 3-10 Minutes Discussed Options Including: Group/Indiv Counseling SOFIA HANKINS DO Feb 04, 2021 12:21
[2021-02-04 15:44] VITALS: BP 100/65
[2021-02-04 19:23] VITALS: BP 100/70
[2021-02-04] MEDS: ROSUVASTATIN 20 MG (CRESTOR) TABLET PO SCH (20:05)
[2021-02-04] MEDS: HYDROcodone/APAP 5 MG/325 MG (LORTAB) TAB PO PRN (20:05)
[2021-02-04] MEDS: ALPRAZolam 0.25 MG (XANAX) TAB PO PRN (20:05)
[2021-02-05 00:37] VITALS: BP 104/73
[2021-02-05 04:34] VITALS: BP 107/77
[2021-02-05] MEDS: FUROSEMIDE 40 MG/4 ML INJ (LASIX) IVP SCH ×2 (05:50→17:52)
[2021-02-05] MEDS: dexAMETHasone 6 MG TAB (DECADRON) PO SCH (05:50)
[2021-02-05 08:00] VITALS: BP 106/75
[2021-02-05] MEDS: KCL 10 MEQ TAB (MICRO K) PO SCH ×2 (08:24→17:52)
[2021-02-05] MEDS: lisINopril 5 MG (PRINIVIL) TABLET PO SCH (08:24)
[2021-02-05] MEDS: ENOXAPARIN 40 MG/0.4 ML (LOVENOX) SYR SC SCH (08:24)
[2021-02-05] MEDS: ASPIRIN E.C. 81 MG (ECOTRIN) TAB PO SCH (08:25)
[2021-02-05] MEDS: PRASUGREL 10 MG (EFFIENT) TABLET PO SCH (08:25)
[2021-02-05] MEDS: SENNA W/DOCUSATE (SENOKOT S) TABLET PO SCH ×2 (08:39→19:26)
[2021-02-05 11:15] VITALS: BP 97/63
--- NOTE | 2021-02-05 12:15 | Discharge Summary ---
Discharge Summary Hospital Course Was the Problem List Reviewed?: Yes Problems/Dx: (1) Acute on chronic combined systolic and diastolic congestive heart failure (2) Coronary artery disease without angina pectoris Status: Chronic Qualifiers: Qualified Codes: I25.10 - Atherosclerotic heart disease of [place] coronary artery without angina pectoris (3) Cardiomyopathy Status: Chronic Qualifiers: Qualified Codes: I25.5 - Ischemic cardiomyopathy (4) Mitral regurgitation (5) Pulmonary hypertension (6) Cardiac defibrillator in situ Hospital Course Date of Admission: Jan 21, 2021 at 19:00 Admission Diagnosis : Family Physician/Provider: Luis Plunkett MD Date of Discharge: 02/05/21 Discharge Diagnosis: COVID-19 pneumonia, hypoxia, acute exacerbation congestive heart failure Hospital Course: Delay in discharge see previous note Labs and Pending Lab Test: Microbiology 01/28/21 MRSA Screen - Final, Complete MRSA not isolated 01/28/21 Blood Culture - Final, Complete No growth 01/21/21 Urine Culture - Final, Complete Gram Pos Mixed Bacterial Erika Home Meds Active Lasix (Furosemide) 40 Mg Tablet 40 Mg PO DAILY Dexamethasone 6 Mg Tablet 3 Mg PO DAILY@0700 Klor-Con 10 (Potassium Chloride) 10 Meq Tablet.er 10 Meq PO BID WITH MEALS Aspirin EC (Aspirin) 81 Mg Tablet.dr 81 Mg PO DAILY Lisinopril 5 Mg Tablet 5 Mg PO DAILY Metoprolol Succinate 25 Mg Tab.er.24h 25 Mg PO DAILY Rosuvastatin Calcium 20 Mg Tablet 20 Mg PO HS Prasugrel HCl 10 Mg Tablet 10 Mg PO DAILY LAST FILLED 12-06-2020 #30/30 DAY SUPPLY Assessment/Pt Instructions [facility] in 1 week Discharge Planning: <30 minutes discharge planning Discharge Instructions Discharge Diet: Cardiac Diet Discharge Physical Examination Vital Signs Vital Signs Date Time Temp Pulse Resp B/P (MAP) Pulse Ox O2 Delivery O2 Flow Rate FiO2 02/05/21 11:15 36.6 101 18 97/63 (74) 96 Nasal Cannula 1.00 01/31/21 20:01 21 General Appearance: No Apparent Distress, WD/WN Allergies: Coded Allergies: No Known Drug Allergies (Unverified , 05/29/11) Discharge Summary Date of Admission Jan 21, 2021 at 19:00 Date of Discharge Discharge Date: Feb 04, 2021 Admission Diagnosis Assessment: COVID-19 pneumonia CAD Cardiomyopathy Former meth use Valvular heart disease Plan: Transfer to fourth floor Oxygen Protocol meds Comfort Measures/ Time spent on discussion (min): 5 Discharge Diagnosis Assessment: COVID-19 PNA -chest xray worsened 5 lobe infiltrates -CT angio chest negative for PE, groundglass opacities consistent with COVID-19 PNA -albuterol nebs -decadron -titrate oxygen to keep sat's >90 Acute on Chronic Systolic HF -BNP elevated -cardiology following -lasix -continue to monitor CAD s/p cardiac cath's multiple stents placed -cardiology following -prasugrel Ischemic cardiomyopathy. -last echo 12-08-20 showed LVEF of 35-40% -order new echo today Mod to severe MR - per echo of 12-08-20 -monitor H/O multiple OH's -cardiology following DVT ppx -lovenox HLP -monitor Polysubstance abuse -uds negative -encouraged continued abstinence Tobacco use -encouraged continued abstinence History of medication noncompliance -stressed importance of being compliant with meds and followup 01/25/2021: Supportive care Oxygen High risk for decompensation 02/02/2021: Supportive care IV antibiotics Oxygen supplementation DC isolation 02/03/2021: Supportive care Oxygen evaluation Monitor closely (1) Acute on chronic combined systolic and diastolic congestive heart failure Assessment & Plan: He has been receiving intravenous furosemide. It is difficult to gauge the symptoms due to the active Covid infection. His chest x- ray looks worse today which could be related to the Covid infection. Continue with beta-cheryl and IV furosemide. (2) Coronary artery disease without angina pectoris Status: Chronic Assessment & Plan: Troponin level was negative. He is not having any typical angina. We will continue aspirin, Prasugrel, and beta-cheryl. His LDL level is elevated. I will start him on rosuvastatin. Qualifiers: Qualified Codes: I25.10 - Atherosclerotic heart disease of [place] coronary artery without angina pectoris (3) Cardiomyopathy Status: Chronic Assessment & Plan: He had moderate left ventricular systolic dysfunction on echocardiogram earlier this year. We will continue metoprolol succinate and lisinopril. At some point, we may want to consider adding an aldosterone antagonist. Given the acute Covid infection, I will hold off on adding this medication for the time being. We may want to consider a follow-up echocardiogram after he recovers from Covid infection. Given his negative troponin level, it is unlikely the Covid infection has caused myocarditis. Qualifiers: Qualified Codes: I25.5 - Ischemic cardiomyopathy (4) Mitral regurgitation Assessment & Plan: He had moderate to severe mitral regurgitation on the same echocardiogram outlined above. This is most likely functional mitral regurgitation related to the cardiomyopathy. This should improve if his cardiomyopathy improved. There is no indication for acute intervention at this time. (5) Pulmonary hypertension Assessment & Plan: Most likely related to the chronic heart failure. (6) Cardiac defibrillator in situ Assessment & Plan: Continue to monitor as an outpatient. Clinical Quality Measures Smoking Cessation Counseling: Counseling-Symptomatic: 3-10 Minutes Discussed Options Including: Group/Indiv Counseling SOFIA HANKINS DO Feb 05, 2021 12:15
[2021-02-05 16:48] VITALS: BP 101/64
[2021-02-05] MEDS: ROSUVASTATIN 20 MG (CRESTOR) TABLET PO SCH (19:26)
[2021-02-06 00:30] VITALS: BP 108/74
[2021-02-06] MEDS: guaiFENesin/CODEINE (ROBITUSSIN AC) 10ML UDC PO PRN (05:22)
[2021-02-06] MEDS: FUROSEMIDE 40 MG/4 ML INJ (LASIX) IVP SCH (05:23)
[2021-02-06] MEDS: dexAMETHasone 6 MG TAB (DECADRON) PO SCH (05:23)
[2021-02-06 08:00] VITALS: BP 89/63
[2021-02-06] MEDS: lisINopril 5 MG (PRINIVIL) TABLET PO SCH (08:15)
[2021-02-06] MEDS: ENOXAPARIN 40 MG/0.4 ML (LOVENOX) SYR SC SCH (08:16)
[2021-02-06] MEDS: SENNA W/DOCUSATE (SENOKOT S) TABLET PO SCH (08:16)
[2021-02-06] MEDS: PRASUGREL 10 MG (EFFIENT) TABLET PO SCH (08:16)
[2021-02-06] MEDS: KCL 10 MEQ TAB (MICRO K) PO SCH (08:16)
[2021-02-06] MEDS: ASPIRIN E.C. 81 MG (ECOTRIN) TAB PO SCH (08:17)
[2021-02-06 09:36] VITALS: BP 101/66
--- NOTE | 2021-02-06 11:29 | Discharge Summary ---
Discharge Summary Hospital Course Was the Problem List Reviewed?: Yes Problems/Dx: (1) Acute on chronic combined systolic and diastolic congestive heart failure (2) Coronary artery disease without angina pectoris Status: Chronic Qualifiers: Qualified Codes: I25.10 - Atherosclerotic heart disease of [place] coronary artery without angina pectoris (3) Cardiomyopathy Status: Chronic Qualifiers: Qualified Codes: I25.5 - Ischemic cardiomyopathy (4) Mitral regurgitation (5) Pulmonary hypertension (6) Cardiac defibrillator in situ Hospital Course Date of Admission: Jan 21, 2021 at 19:00 Admission Diagnosis : Family Physician/Provider: Luis Plunkett MD Date of Discharge: 02/06/21 Discharge Diagnosis: See previous discharge summary Hospital Course: Delay in discharge due to social reasons from homelessness Labs and Pending Lab Test: Microbiology 01/28/21 MRSA Screen - Final, Complete MRSA not isolated 01/28/21 Blood Culture - Final, Complete No growth 01/21/21 Urine Culture - Final, Complete Gram Pos Mixed Bacterial Erika Home Meds Active Lasix (Furosemide) 40 Mg Tablet 40 Mg PO DAILY Dexamethasone 6 Mg Tablet 3 Mg PO DAILY@0700 Klor-Con 10 (Potassium Chloride) 10 Meq Tablet.er 10 Meq PO BID WITH MEALS Aspirin EC (Aspirin) 81 Mg Tablet.dr 81 Mg PO DAILY Lisinopril 5 Mg Tablet 5 Mg PO DAILY Metoprolol Succinate 25 Mg Tab.er.24h 25 Mg PO DAILY Rosuvastatin Calcium 20 Mg Tablet 20 Mg PO HS Prasugrel HCl 10 Mg Tablet 10 Mg PO DAILY LAST FILLED 12-06-2020 #30/30 DAY SUPPLY Assessment/Pt Instructions See previous to discharge summaries Discharge Planning: <30 minutes discharge planning Discharge Instructions Discharge Diet: Cardiac Diet Discharge Physical Examination Vital Signs Vital Signs Date Time Temp Pulse Resp B/P (MAP) Pulse Ox O2 Delivery O2 Flow Rate FiO2 02/06/21 09:36 108 101/66 (78) Nasal Cannula 2.00 02/06/21 08:00 35.6 18 99 01/31/21 20:01 21 General Appearance: No Apparent Distress, WD/WN Allergies: Coded Allergies: No Known Drug Allergies (Unverified , 05/29/11) Discharge Summary Date of Admission Jan 21, 2021 at 19:00 Date of Discharge Discharge Date: Feb 04, 2021 Admission Diagnosis Assessment: COVID-19 pneumonia CAD Cardiomyopathy Former meth use Valvular heart disease Plan: Transfer to fourth floor Oxygen Protocol meds Comfort Measures/ Time spent on discussion (min): 5 Discharge Diagnosis Assessment: COVID-19 PNA -chest xray worsened 5 lobe infiltrates -CT angio chest negative for PE, groundglass opacities consistent with COVID-19 PNA -albuterol nebs -decadron -titrate oxygen to keep sat's >90 Acute on Chronic Systolic HF -BNP elevated -cardiology following -lasix -continue to monitor CAD s/p cardiac cath's multiple stents placed -cardiology following -prasugrel Ischemic cardiomyopathy. -last echo 12-08-20 showed LVEF of 35-40% -order new echo today Mod to severe MR - per echo of 12-08-20 -monitor H/O multiple KS's -cardiology following DVT ppx -lovenox HLP -monitor Polysubstance abuse -uds negative -encouraged continued abstinence Tobacco use -encouraged continued abstinence History of medication noncompliance -stressed importance of being compliant with meds and followup 01/25/2021: Supportive care Oxygen High risk for decompensation 02/02/2021: Supportive care IV antibiotics Oxygen supplementation DC isolation 02/03/2021: Supportive care Oxygen evaluation Monitor closely (1) Acute on chronic combined systolic and diastolic congestive heart failure Assessment & Plan: He has been receiving intravenous furosemide. It is difficult to gauge the symptoms due to the active Covid infection. His chest x- ray looks worse today which could be related to the Covid infection. Continue w ith beta-cheryl and IV furosemide. (2) Coronary artery disease without angina pectoris Status: Chronic Assessment & Plan: Troponin level was negative. He is not having any typical angina. We will continue aspirin, Prasugrel, and beta-cheryl. His LDL level is elevated. I will start him on rosuvastatin. Qualifiers: Qualified Codes: I25.10 - Atherosclerotic heart disease of [place] coronary artery without angina pectoris (3) Cardiomyopathy Status: Chronic Assessment & Plan: He had moderate left ventricular systolic dysfunction on echocardiogram earlier this year. We will continue metoprolol succinate and lisinopril. At some point, we may want to consider adding an aldosterone antagonist. Given the acute Covid infection, I will hold off on adding this medication for the time being. We may want to consider a follow-up echocardiogram after he recovers from Covid infection. Given his negative troponin level, it is unlikely the Covid infection has caused myocarditis. Qualifiers: Qualified Codes: I25.5 - Ischemic cardiomyopathy (4) Mitral regurgitation Assessment & Plan: He had moderate to severe mitral regurgitation on the same echocardiogram outlined above. This is most likely functional mitral regurgitation related to the cardiomyopathy. This should improve if his cardiomyopathy improved. There is no indication for acute intervention at this time. (5) Pulmonary hypertension Assessment & Plan: Most likely related to the chronic heart failure. (6) Cardiac defibrillator in situ Assessment & Plan: Continue to monitor as an outpatient. Clinical Quality Measures Smoking Cessation Counseling: Counseling-Symptomatic: 3-10 Minutes Discussed Options Including: Group/Indiv Counseling SOFIA HANKINS DO Feb 06, 2021 11:29
[2021-02-06 15:06] VITALS: BP 101/66
== END 2021-02-06 15:06 | disposition home or self-care (01) | DRG 177 ==
LOC: EDUNIT# 16:09 → ER 16:10 → ICU 19:00 → 4TH 01-22 18:30
PROVIDERS: ADMIT Internal Medicine; ATTEND Internal Medicine
DX: U07.1 COVID-19 (principal); J12.82 Pneumonia due to coronavirus disease 2019; J96.01 Acute respiratory failure with hypoxia; I50.43 Acute on chronic combined systolic (congestive) and diastolic (congestive) heart failure; I42.9 Cardiomyopathy, unspecified; I25.5 Ischemic cardiomyopathy; I25.10 Atherosclerotic heart disease of native coronary artery without angina pectoris; Z95.5 Presence of coronary angioplasty implant and graft; I34.0 Nonrheumatic mitral (valve) insufficiency; E78.5 Hyperlipidemia, unspecified; F19.10 Other psychoactive substance abuse, uncomplicated; Z91.14 Patient's other noncompliance with medication regimen; I27.20 Pulmonary hypertension, unspecified; Z73.0 Burn-out; Z95.810 Presence of automatic (implantable) cardiac defibrillator; Z87.891 Personal history of nicotine dependence; F15.90 Other stimulant use, unspecified, uncomplicated; F12.90 Cannabis use, unspecified, uncomplicated
CPT/HCPCS: 36415; 36600; 71045; 71275; 80048; 80053; 80061; 80202; 80306; 81000; 82805; 83605; 83735; 83880; 84100; 84145; 84484; 85007; 85025; 85027; 85379; 87040; 87077; 87081; 87088; 87186; 93005; 94640; 94664; 94760; 94761; 96374; 99291

== ENCOUNTER 2021-02-12 06:03 | Observation (INO) | payer OTHER ==
[~2021-02-12 06:03] MED LIST changes: +FURO-124 PO; +POTA10TA6 PO; +ROSU20TA32 PO
--- NOTE | 2021-02-12 06:34 | ED Cardiac General ---
History of Present Illness General Chief Complaint: Cardiac/General Problems Stated Complaint: CP,SOA Source: patient Exam Limitations: no limitations History of Present Illness Date Seen by Provider: Feb 12, 2021 Time Seen by Provider: 06:10 Initial Comments Here by EMS with report of shortness of air and patient states he felt like he was going to . Does have previous history of heart attack. Also has previous history of COVID-19 infection and prolonged stay in the hospital. Discharged on 06 February after infection and stay. He was given 2 weeks at the [facility] to rehab. Does have appointment with the [facility] at 10:40 AM. Patient reports taking meds as directed. States after he got to the [facility], he noted increased swelling of his legs. Does have history of heart failure as well. States bilateral legs are still hurting him. Denies nausea, vomiting or sweating. Denies upper respiratory symptoms. States he has shortness of breath and feels weak. May have been an episode of chest discomfort but this may have been more shortness of breath and palpitations as he describes them. 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: No ASA po MOSAIC TILE MAKER: Yes Associated Systoms: No Cough, No Nausea/Vomiting; Shortness of Air, Weakness Allergies and Home Medications Allergies Coded Allergies: No Known Drug Allergies (Unverified , 05/29/11) Home Medications Aspirin 81 Mg Tablet.dr, 81 MG PO DAILY Prescribed by: SOFIA HANKINS on 02/04/21 1221 Dexamethasone 6 Mg Tablet, 3 MG PO DAILY@0700 Prescribed by: SOFIA HANKINS on 02/04/21 1221 Furosemide 40 Mg Tablet, 40 MG PO DAILY Prescribed by: SOFIA HANKINS on 02/04/21 1221 Lisinopril 5 Mg Tablet, 5 MG PO DAILY Prescribed by: SOFIA HANKINS on 02/04/21 1221 Metoprolol Succinate 25 Mg Tab.er.24h, 25 MG PO DAILY Prescribed by: SOFIA HANKINS on 02/04/21 1221 Potassium Chloride 10 Meq Tablet.er, 10 MEQ PO BID WITH MEALS Prescribed by: SOFIA HANKINS on 02/04/21 1221 Prasugrel HCl 10 Mg Tablet, 10 MG PO DAILY LAST FILLED 12-06-2020 #30/30 DAY SUPPLY Prescribed by: SOFIA HANKINS on 02/04/21 1221 Rosuvastatin Calcium 20 Mg Tablet, 20 MG PO HS Prescribed by: SOFIA HANKINS on 02/04/21 1221 Patient Home Medication List Home Medication List Reviewed: Yes Review of Systems Review of Systems Constitutional: see HPI; No chills, No fever EENTM: No Symptoms Reported Respiratory: Denies Cough; Shortness of Air Cardiovascular: Edema, Palpitations Gastrointestinal: Denies Abdominal Pain, Denies Nausea, Denies Vomiting Genitourinary: No Symptoms Reported Musculoskeletal: no symptoms reported Skin: no symptoms reported All Other Systems Reviewed Negative Unless Noted: Yes Past Xejevzm-Vnmyza-Otinrn Hx Patient Social History Tobacco Use?: No Smoking Status: Former Smoker Substance use?: No Additional substance use comme: STATES "CLEAN FOR 3 MONTHS" Alcohol Use?: No Immunizations Up To Date Tetanus Booster (TDap): Unknown Seasonal Allergies Seasonal Allergies: No Past Medical History Surgery/Hospitalization HX: FOUR AR'S. 3 STENTS PLACED Surgeries: Yes (LEFT SHOULDER BICEPS TENDON, HEART STENTS 02/01/19) Defibrillator Respiratory: No Currently Using CPAP: No Currently Using BIPAP: No Cardiac: Yes (heart failure) Cardiomyopathy, Coronary Artery Disease, Heart Attack, Valvular Heart Disease Neurological: No Sexually Transmitted Disease: No HIV/AIDS: No Genitourinary: No Gastrointestinal: No Musculoskeletal: Yes (LEFT SHOULDER SURGERY) Endocrine: No HEENT: No Loss of Vision: Denies Hearing Impairment: Denies Cancer: No Psychosocial: No Integumentary: No Blood Disorders: No Family Medical History Reviewed Nursing Family Hx Diabetes mellitus 19 MOTHER, Onset:Unknown Myocardial infarction 19 MOTHER Heart Disease, Diabetes Physical Exam Vital Signs Vital Signs - First Documented 02/12/21 02/12/21 06:08 07:55 Temp 36.6 Pulse 120 Resp 20 B/P (MAP) 100/68 (79) Pulse Ox 96 O2 Delivery Room Air O2 Flow Rate 2.00 Capillary Refill : Height, Weight, BMI Height: 6'2.00" Weight: 225lbs. 15.0oz. 102.536399jw; 28.59 BMI Method:Stated General Appearance: No Apparent Distress, WD/WN HEENT: PERRL/EOMI, Pharynx Normal Neck: Non Tender, Supple Respiratory: Lungs Clear, Normal Breath Sounds Cardiovascular: Regular Rate, Rhythm, No Murmur Gastrointestinal: Non Tender, Soft Extremity: Normal Range of Motion, Non Tender Neurologic/Psychiatric: Alert, Oriented x3 Skin: Normal Color, Warm/Dry Progress/Results/Core Measures Results/Orders Lab Results Laboratory Tests Test 02/12/21 06:30 Range/Units White Blood Count 15.3 H 4.3-11.0 10^3/uL Red Blood Count 4.55 4.30-5.52 10^6/uL Hemoglobin 13.3 13.3-17.7 g/dL Hematocrit 43 40-54 % Mean Corpuscular Volume 94 80-99 fL Mean Corpuscular Hemoglobin 29 25-34 pg Mean Corpuscular Hemoglobin Concent 31 L 32-36 g/dL Red Cell Distribution Width 19.0 H 10.0-14.5 % Platelet Count 173 130-400 10^3/uL Mean Platelet Volume 11.0 9.0-12.2 fL Immature Granulocyte % (Auto) 4 % Neutrophils (%) (Auto) 75 42-75 % Lymphocytes (%) (Auto) 15 12-44 % Monocytes (%) (Auto) 5 0-12 % Eosinophils (%) (Auto) 1 0-10 % Basophils (%) (Auto) 0 0-10 % Neutrophils # (Auto) 11.4 H 1.8-7.8 10^3/uL Lymphocytes # (Auto) 2.3 1.0-4.0 10^3/uL Monocytes # (Auto) 0.8 0.0-1.0 10^3/uL Eosinophils # (Auto) 0.2 0.0-0.3 10^3/uL Basophils # (Auto) 0.0 0.0-0.1 10^3/uL Immature Granulocyte # (Auto) 0.7 H 0.0-0.1 10^3/uL Neutrophils % (Manual) 75 % Lymphocytes % (Manual) 16 % Monocytes % (Manual) 6 % Eosinophils % (Manual) 2 % Basophils % (Manual) 0 % Band Neutrophils 1 % Nucleated Red Blood Cells 2 Polychromasia SLIGHT Anisocytosis MODERATE Prothrombin Time 16.0 H 12.2-14.7 SEC INR Comment 1.2 0.8-1.4 Activated Partial Thromboplast Time 26 24-35 SEC D-Dimer 3.92 H 0.00-0.49 UG/ML Sodium Level 133 L 135-145 MMOL/L Potassium Level 5.2 H 3.6-5.0 MMOL/L Chloride Level 103 98-107 MMOL/L Carbon Dioxide Level 19 L 21-32 MMOL/L Anion Gap 11 5-14 MMOL/L Blood Urea Nitrogen 37 H 7-18 MG/DL Creatinine 0.86 0.60-1.30 MG/DL Estimat Glomerular Filtration Rate 95 BUN/Creatinine Ratio 43 Glucose Level 97 70-105 MG/DL Calcium Level 9.1 8.5-10.1 MG/DL Corrected Calcium 9.7 8.5-10.1 MG/DL Magnesium Level 1.8 1.6-2.4 MG/DL Total Bilirubin 0.9 0.1-1.0 MG/DL Aspartate Amino Transf (AST/SGOT) 50 H 5-34 U/L Alanine Aminotransferase (ALT/SGPT) 111 H 0-55 U/L Alkaline Phosphatase 143 H 40-136 U/L Myoglobin 104.3 H 10.0-92.0 NG/ML Troponin I 0.038 H <0.028 NG/ML B-Type Natriuretic Peptide 731.2 H <100.0 PG/ML Total Protein 6.4 6.4-8.2 GM/DL Albumin 3.2 3.2-4.5 GM/DL My Orders Orders - BRIAN TREVIZO MD Cbc With Automated Diff (02/12/21 06:32) Magnesium (02/12/21 06:32) Chest 1 View, Ap/Pa Only (02/12/21 06:32) Ekg Tracing (02/12/21 06:32) Comprehensive Metabolic Panel (02/12/21 06:32) Myoglobin Serum (02/12/21 06:32) Protime With Inr (02/12/21 06:32) Partial Thromboplastin Time (02/12/21 06:32) O2 (02/12/21 06:32) Monitor-Rhythm Ecg Trace Only (02/12/21 06:32) Lipid Panel (02/13/21 06:00) Ed Iv/Invasive Line Start (02/12/21 06:32) BNP (02/12/21 06:32) Fibrin Degradation Products (02/12/21 06:32) Ns Iv 500 Ml (Sodium Chloride 0.9%) (02/12/21 06:45) Manual Differential (02/12/21 06:30) Troponin I (02/12/21 06:30) Ct Angio Chest W (02/12/21 08:15) Iohexol Injection (Omnipaque 350 Mg/Ml 1 (02/12/21 08:30) Received Contrast (Hold Metformin- Contr (02/12/21 08:30) Sodium Chloride Flush (Catheter Flush Sy (02/12/21 08:30) Ns (Ivpb) (Sodium Chloride 0.9% Ivpb Bag (02/12/21 08:30) Enoxaparin Injection (Lovenox Injection) (02/12/21 10:00) Ns Iv 500 Ml (Sodium Chloride 0.9%) (02/12/21 10:00) Medications Given in ED Current Medications Medications Dose Ordered Sig/Maggie Route Start Time Stop Time Status Last Admin Dose Admin Iohexol 100 ml ONCE ONCE IV 02/12/21 08:30 02/12/21 08:31 DC 02/12/21 08:50 77 ML Sodium Chloride 10 ml NEEDED PRN IV 02/12/21 08:30 02/12/21 08:50 10 ML Sodium Chloride 100 ml ONCE ONCE IV 02/12/21 08:30 02/12/21 08:31 DC 02/12/21 08:50 80 ML Sodium Chloride 500 ml @ 0 mls/hr Q0M ONCE IV 02/12/21 06:45 02/12/21 06:46 DC 02/12/21 06:52 0 MLS/HR Vital Signs/I&O 02/12/21 02/12/21 06:08 07:55 Temp 36.6 Pulse 120 Resp 20 B/P (MAP) 100/68 (79) Pulse Ox 96 O2 Delivery Room Air Nasal Cannula O2 Flow Rate 2.00 Progress Progress Note : Progress Note Seen and evaluated. IV, labs, EKG and chest x-ray ordered. ASA 324 mg p.o. ordered but not administered as patient did receive this via EMS. Normal saline 500 mL bolus ordered. Monitor patient. 0946: CT angiogram of the chest was ordered and this is positive for pulmonary emboli. See below for details. Patient has challenged social economic status and is at risk. He is currently staying at the [facility] without transportation or resources. He will need to be initiated on outpatient therapy for pulmonary emboli. Given the challenges, I did discuss the case with Dr. Pulliam and she accepts patient for admission, observation status. We will initiate Lovenox 1 mg/kg subcu now and she will convert to what ever options that they have through the clinic pharmacy for him when she gets that information. Admit observation status. Patient agrees with plan. Initial ECG Impression Date: Feb 12, 2021 Initial ECG Impression Time: 06:13 Initial ECG Rate: 121 Initial ECG Rhythm: S.Tach Comment Sinus tachycardia with left atrial abnormality. Right bundle branch block. Left axis deviation. No evidence of ST elevation AR. Similar to previous of 01/21/2021. Interpreted by me. Diagnostic Imaging Diagonstic Imaging: Xray Plain Films/CT/US/NM/MRI: chest Comments [facility] [place] NAME: YURIY MARTINI REC#: [id number] PT STATUS: REG ER : 1970 PHYSICIAN: BRIAN TREVIZO MD ADMIT DATE: 02/12/21/ER Draft Date of Exam:02/12/21 CHEST 1 VIEW, AP/PA ONLY EXAMINATION: Chest radiograph, portable AP view. DATE: 02/12/2021 6:53 AM INDICATION: 50-year-old male, chest pain. The patient is COVID positive. COMPARISON: February 03, 2021. FINDINGS: There is a left-sided cardiac assist device with intact leads. Heart size and mediastinal contours are unchanged. There is no identified pneumothorax. There is no large pleural effusion. There is multifocal bilateral lung consolidation which is perhaps mildly improved since the comparison exam. IMPRESSION: 1. Redemonstrated extensive multifocal bilateral lung consolidation which appears mildly improved since the comparison exam. Report was faxed to [facility] by erna at 7:00AM. Dictated on workstation # [id number] Dict: 02/12/21 0654 Trans: 02/12/21 07 ERNA [id number] Interpreted by: CRESCENCIO PERSAUD MD Electronically signed by: Diagonstic Imaging: CT Plain Films/CT/US/NM/MRI: chest Comments [facility] [place] NAME: YURIY MARTINI REC#: [id number] PT STATUS: REG ER : 1970 PHYSICIAN: BRIAN TREVIZO MD ADMIT DATE: 02/12/21/ER Draft Date of Exam:02/12/21 CT ANGIO CHEST W PROCEDURE: CT angiography of the chest with contrast. TECHNIQUE: Multiple contiguous axial images were obtained through the chest after uneventful bolus administration of intravenous contrast. 3D reconstructed CTA MIP acquisitions were also performed. Auto Exposure Controls were utilized during the CT exam to meet ALARA standards for radiation dose reduction. INDICATION: Strong clinical suspicion for a PE. Previous myocardial infarcts. COMPARISON with CT angiogram chest 01/21/2021. FINDINGS: The exam confirms the interval development of a small amount of left upper lobe incompletely occlusive segmental clot seen on axial images 61 through 64. The remaining pulmonary arterial branches appeared well opacified and patent. No evidence for right heart strain or elevated right heart pressures. The clot burden in this patient is very mild. Thoracic aorta is nonaneurysmal. Right pleural effusion is nonloculated and is decreased from prior. There is no pericardial effusion. Bilateral patchy 5 lobed ground-glassed and airspace infiltrates are present but have at least mildly improved in the interim. There is no pneumothorax. Upper limits heart size stable. No pericardial effusion. The visualized upper abdomen demonstrates a small volume of right upper quadrant perihepatic free fluid as a new finding and there is some increased generalized subcutaneous and integumentary edema. IMPRESSION: 1. A very small amount of subsegmental left upper lobe PE is incompletely occlusive without evidence for right heart strain, saddle embolus or other thrombotic burden. 2. Improvements in 5 lobed infiltrates with decreased nonloculated right pleural effusion. 3. Increased integumentary and subcutaneous edema and a small volume right upper quadrant perihepatic ascites. Critical findings discussed with Dr. Trevizo. Dictated on workstation # [id number] Dict: 02/12/21 0853 Trans: 02/12/21 0934 [facility] [id number] Interpreted by: UGO HASKINS Electronically signed by: Departure Communication (Admissions) Time/Spoke to Admitting Phy: 09:46 Impression Primary Impression: Pulmonary embolism Qualified Codes: I26.99 - Other pulmonary embolism without acute cor pulmonale Disposition: ADMITTED INPATIENT Condition: Stable Admissions Decision to Admit Reason: Admit from ER (General) Decision to Admit/Date: Feb 12, 2021 Time/Decision to Admit Time: 09:46 Departure-Patient Inst. Referrals: [facility] (PCP) Primary Care Physician HECTOR MEMBRENO MD (Family) Primary Care Physician BRIAN TREVIZO MD Feb 12, 2021 06:34
[2021-02-12] MEDS ORDERED: NS IV 500 ML 500 ML IV ONE ×2 (06:45→10:00)
[2021-02-12] MEDS ORDERED: ASPIRIN 81 MG CHEW (CHILDREN'S ASA) PO ONE (06:45)
[2021-02-12 06:51] LABS: BASOPHILS % (AUTO) 0 % (0-10); EOSINOPHILS # (AUTO) 0.2 10^3/uL (0.0-0.3); EOSINOPHILS % (AUTO) 1 % (0-10); HEMATOCRIT 43 % (40-54); HEMOGLOBIN 13.3 g/dL (13.3-17.7); LYMPHOCYTES # (AUTO) 2.3 10^3/uL (1.0-4.0); LYMPHOCYTES % (AUTO) 15 % (12-44); MEAN CORPUSCULAR HEMOGLOBIN 29 pg (25-34); MEAN CORPUSCULAR HGB CONC 31 g/dL (32-36); MEAN CORPUSCULAR VOLUME 94 fL (80-99); MONOCYTES # (AUTO) 0.8 10^3/uL (0.0-1.0); MONOCYTES % (AUTO) 5 % (0-12); NEUTROPHILS # (AUTO) 11.4 10^3/uL (1.8-7.8); NEUTROPHILS % (AUTO) 75 % (42-75); PLATELET COUNT 173 10^3/uL (130-400); WHITE BLOOD COUNT 15.3 10^3/uL (4.3-11.0)
[2021-02-12 06:56] LABS: INR 1.2 (0.8-1.4)
--- NOTE | 2021-02-12 07:01 | Diagnostic Imaging Report ---
EXAMINATION: Chest radiograph, portable AP view. DATE: 02/12/2021 6:53 AM INDICATION: 50-year-old male, chest pain. The patient is COVID positive. COMPARISON: February 03, 2021. FINDINGS: There is a left-sided cardiac assist device with intact leads. Heart size and mediastinal contours are unchanged. There is no identified pneumothorax. There is no large pleural effusion. There is multifocal bilateral lung consolidation which is perhaps mildly improved since the comparison exam. IMPRESSION: 1. Redemonstrated extensive multifocal bilateral lung consolidation which appears mildly improved since the comparison exam. Report was faxed to [facility] by phil at 7:00AM. Dictated by: Dictated on workstation # [id number]
[2021-02-12 07:06] LABS: ALBUMIN 3.2 GM/DL (3.2-4.5); BILIRUBIN,TOTAL 0.9 MG/DL (0.1-1.0); CALCIUM 9.1 MG/DL (8.5-10.1); CREATININE SERUM 0.86 MG/DL (0.60-1.30); MAGNESIUM 1.8 MG/DL (1.6-2.4); POTASSIUM 5.2 MMOL/L (3.6-5.0); TOTAL PROTEIN 6.4 GM/DL (6.4-8.2)
[2021-02-12 07:45] LABS: BAND NEUTROPHILS 1 %; LYMPHOCYTES % (MANUAL) 16 %; MONOCYTES % (MANUAL) 6 %; NEUTROPHILS % (MANUAL) 75 %
[2021-02-12 07:46] LABS: ANISOCYTOSIS MODERATE; BASOPHILS % (MANUAL) 0 %; EOSINOPHILS % (MANUAL) 2 %; NUCLEATED RED BLOOD CELLS 2; POLYCHROMASIA SLIGHT
[2021-02-12] MEDS ORDERED: IOHEXOL 350 MG/ML 100 ML (OMNIPAQUE 350) VIAL IV ONE (08:30)
[2021-02-12] MEDS ORDERED: NS 100 ML (IVPB) BAG IV ONE (08:30)
[2021-02-12] MEDS ORDERED: CATHETER FLUSH 10 ML SYR IV PRN (08:30)
[2021-02-12] MEDS ORDERED: HOLD METFORMIN - RECEIVED CONTRAST 20 ML VIAL IV SCH (08:30)
--- NOTE | 2021-02-12 09:35 | Diagnostic Imaging Report ---
PROCEDURE: CT angiography of the chest with contrast. TECHNIQUE: Multiple contiguous axial images were obtained through the chest after uneventful bolus administration of intravenous contrast. 3D reconstructed CTA MIP acquisitions were also performed. Auto Exposure Controls were utilized during the CT exam to meet ALARA standards for radiation dose reduction. INDICATION: Strong clinical suspicion for a PE. Previous myocardial infarcts. COMPARISON with CT angiogram chest 01/21/2021. FINDINGS: The exam confirms the interval development of a small amount of left upper lobe incompletely occlusive segmental clot seen on axial images 61 through 64. The remaining pulmonary arterial branches appeared well opacified and patent. No evidence for right heart strain or elevated right heart pressures. The clot burden in this patient is very mild. Thoracic aorta is nonaneurysmal. Right pleural effusion is nonloculated and is decreased from prior. There is no pericardial effusion. Bilateral patchy 5 lobed ground-glassed and airspace infiltrates are present but have at least mildly improved in the interim. There is no pneumothorax. Upper limits heart size stable. No pericardial effusion. The visualized upper abdomen demonstrates a small volume of right upper quadrant perihepatic free fluid as a new finding and there is some increased generalized subcutaneous and integumentary edema. IMPRESSION: 1. A very small amount of subsegmental left upper lobe PE is incompletely occlusive without evidence for right heart strain, saddle embolus or other thrombotic burden. 2. Improvements in 5 lobed infiltrates with decreased nonloculated right pleural effusion. 3. Increased integumentary and subcutaneous edema and a small volume right upper quadrant perihepatic ascites. Critical findings discussed with Dr. Blancas. Dictated by: Dictated on workstation # [id number]
[2021-02-12] MEDS ORDERED: ENOXAPARIN 100 MG/1 ML (LOVENOX) SYR SC ONE (10:00)
[2021-02-12 11:30] VITALS: BP 79/61
[2021-02-12] MEDS ORDERED: NS IV 1000 ML 1,000 ML ONE (11:47)
[2021-02-12 12:00] VITALS: BP 81/69
[2021-02-12] MEDS ORDERED: NS IV 1000 ML 1,000 ML IV SCH ×2 (12:00)
[2021-02-12] MEDS ORDERED: MTP25TSR PO (14:12)
[2021-02-12] MEDS ORDERED: ROSU20TA32 PO (14:12)
[2021-02-12] MEDS ORDERED: PRAS10TA10 PO (14:12)
[2021-02-12] MEDS ORDERED: ASPI-1238 PO (14:12)
[2021-02-12] MEDS ORDERED: LISI-729 PO (14:12)
[2021-02-12] MEDS ORDERED: POTA10TA36 PO (14:12)
[2021-02-12] MEDS ORDERED: FURO40TA4 PO (14:12)
[2021-02-12] MEDS ORDERED: BISM525O18 PO (14:16)
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
[2021-02-12] MEDS ORDERED: ACETAMINOPHEN 325 MG TABLET ONE (15:28)
[2021-02-12] MEDS ORDERED: ACETAMINOPHEN 325 MG TABLET PO PRN (15:30)
[2021-02-12] MEDS: ACETAMINOPHEN 325 MG TABLET PO PRN ×2 (15:37→20:44)
[2021-02-12] MEDS ORDERED: IBUPROFEN 600 MG (MOTRIN) TAB PO PRN (15:45)
[2021-02-12 15:56] VITALS: BP 93/73
[2021-02-12 20:00] VITALS: BP 91/54
[2021-02-12] MEDS: APIXABAN 5 MG (ELIQUIS) TABLET PO SCH (20:44)
[2021-02-12] MEDS: guaiFENesin/CODEINE (ROBITUSSIN AC) 10ML UDC PO PRN (20:44)
[2021-02-13 06:03] LABS: BASOPHILS % (AUTO) 0 % (0-10); EOSINOPHILS # (AUTO) 0.1 10^3/uL (0.0-0.3); EOSINOPHILS % (AUTO) 1 % (0-10); HEMATOCRIT 45 % (40-54); HEMOGLOBIN 13.6 g/dL (13.3-17.7); LYMPHOCYTES # (AUTO) 2.1 10^3/uL (1.0-4.0); LYMPHOCYTES % (AUTO) 18 % (12-44); MEAN CORPUSCULAR HEMOGLOBIN 29 pg (25-34); MEAN CORPUSCULAR HGB CONC 31 g/dL (32-36); MEAN CORPUSCULAR VOLUME 95 fL (80-99); MEAN PLATELET VOLUME 10.9 fL (9.0-12.2); MONOCYTES # (AUTO) 0.8 10^3/uL (0.0-1.0); MONOCYTES % (AUTO) 7 % (0-12); NEUTROPHILS # (AUTO) 8.5 10^3/uL (1.8-7.8); NEUTROPHILS % (AUTO) 73 % (42-75); PLATELET COUNT 157 10^3/uL (130-400); WHITE BLOOD COUNT 11.6 10^3/uL (4.3-11.0)
[2021-02-13 06:15] LABS: POTASSIUM 5.2 MMOL/L (3.6-5.0)
[2021-02-13 06:21] LABS: CREATININE SERUM 1.11 MG/DL (0.60-1.30)
[2021-02-13 08:14] VITALS: BP 111/81
[2021-02-13] MEDS: APIXABAN 5 MG (ELIQUIS) TABLET PO SCH ×2 (08:17→20:48)
[2021-02-13] MEDS: ASPIRIN E.C. 81 MG (ECOTRIN) TAB PO SCH (08:17)
[2021-02-13] MEDS: ACETAMINOPHEN 325 MG TABLET PO PRN (08:19)
--- NOTE | 2021-02-13 08:58 | Progress Note ---
Subjective Subjective/Events-last exam Pt states that he had a lot of coughing last night which kept him up. Improved after being given the cough med. Reports SOB, about the same as yesterday. Abd pain and leg pain/swelling mildly improved. Pt eating and getting up to go to restroom without complaints. Review of Systems General: Malaise HEENT: Head Aches Pulmonary: Cough (improved) Cardiovascular: Edema; No: Palpitations Gastrointestinal: Abdominal Pain Musculoskeletal: leg pain (and swelling, similar to yesterday, bilat) Neurological: No: Numbness, Change in speech Objective Exam Last Set of Vital Signs Vital Signs Date Time Temp Pulse Resp B/P (MAP) Pulse Ox O2 Delivery O2 Flow Rate FiO2 02/13/21 08:14 36.5 Nasal Cannula 2.50 02/13/21 05:59 99 02/13/21 04:00 109 16 Capillary Refill : Less Than 3 Seconds I&O Intake and Output 02/13/21 00:00 Intake Total 3320 ml Balance 3320 ml Intake Oral 1320 ml IV Total 2000 ml # Voids 3 # Bowel Movements 2 General: Alert, Oriented X3, Cooperative, No Acute Distress HEENT: Atraumatic, PERRLA, EOMI Neck: Supple, No JVD Lungs: Clear to Auscultation, Normal Air Movement Heart: Normal S1, Normal S2, Other (tachycardia) Abdomen: Soft, Other (mild diffuse tenderness) Extremities: Other (1+ pitting edema, similar to yesterday) Skin: No Rashes, No Breakdown Neuro: Normal Speech, Sensation Intact Psych/Mental Status: Mental Status NL, Mood NL Results/Procedures Lab Laboratory Tests 02/13/21 05:40: White Blood Count 11.6H, Red Blood Count 4.71, Hemoglobin 13.6, Hematocrit 45, Mean Corpuscular Volume 95, Mean Corpuscular Hemoglobin 29, Mean Corpuscular Hemoglobin Concent 31L, Red Cell Distribution Width 19.1H, Platelet Count 157, Mean Platelet Volume 10.9, Immature Granulocyte % (Auto) 2, Neutrophils (%) (Auto) 73, Lymphocytes (%) (Auto) 18, Monocytes (%) (Auto) 7, Eosinophils (%) (Auto) 1, Basophils (%) (Auto) 0, Neutrophils # (Auto) 8.5H, Lymphocytes # (Auto) 2.1, Monocytes # (Auto) 0.8, Eosinophils # (Auto) 0.1, Basophils # (Auto) 0.0, Immature Granulocyte # (Auto) 0.2H, Sodium Level 131L, Potassium Level 5.2H , Chloride Level 99, Carbon Dioxide Level 19L, Anion Gap 13, Blood Urea Nitrogen 40H, Creatinine 1.11, Estimat Glomerular Filtration Rate 70, BUN/Creatinine Ratio 36, Glucose Level 106H, Calcium Level 9.0, Triglycerides Level 69, Cholesterol Level 103, LDL Cholesterol Direct 48, VLDL Cholesterol 14, HDL Cholesterol 41 Radiology CXR: Redemonstrated extensive multifocal bilateral lung consolidation which appears mildly improved since the comparison exam. CTA chest with contrast: 1. A very small amount of subsegmental left upper lobe PE is incompletely occlusive without evidence for right heart strain, saddle embolus or other thrombotic burden. 2. Improvements in 5 lobed infiltrates with decreased nonloculated right pleural effusion. 3. Increased integumentary and subcutaneous edema and a small volume right upper quadrant perihepatic ascites. BLE doppler US: The deep venous system of each lower extremity, where visualized, is unremarkable for a deep venous thrombosis. Assessment/Plan Assessment/Plan (1) Pulmonary embolism associated with COVID-19 Onset Date: ~ 02/12/2021 Status: Acute Assessment & Plan: - Patient received treatment dose Lovenox in ER, will transition to PO Eliquis, 6 month supply at [facility] - Encouraged use of IS (2) NSTEMI (non-ST elevated myocardial infarction) Status: Acute (3) Acute on chronic combined systolic and diastolic congestive heart failure Status: Acute Assessment & Plan: - Increase in shortness of breath with fluid bolus in ER, will hold fluids at this time, Will continue to monitor, holding lasix due to low blood pressures (4) Elevated transaminase level Status: Acute Assessment & Plan: - Will hold Statin at this time due to elevated LFTs, repeat CMP in AM (5) Leg swelling Status: Acute Assessment & Plan: - Venous dopplers ordered, no DVT visualized - Will order 10mg lasix IV x1 to help with swelling given that his BP has improved today (6) Coronary artery disease without angina pectoris Status: Chronic Qualifiers: Qualified Codes: I25.10 - Atherosclerotic heart disease of [place] coronary artery without angina pectoris (7) Cardiomyopathy Status: Chronic Assessment & Plan: - ICD in place Clinical Quality Measures AMI/AHF: ASA po Prior to arrival: Yes Smoking Cessation Counseling: Counseling-Symptomatic: 3-10 Minutes Discussed Options Including: Group/Indiv Counseling LEXA KIMBROUGH Feb 13, 2021 08:58
--- NOTE | 2021-02-13 09:22 | Diagnostic Imaging Report ---
PROCEDURE: US Venous Lower Ext Joe. TECHNIQUE: Multiple real-time grayscale images were obtained over the lower extremities in various projections, bilaterally. Additional duplex Doppler and color Doppler images were also obtained. INDICATION: Leg pain and swelling There are no prior studies available for comparison. There is still good blood flow and compressibility at all levels. There is no evidence for a deep venous thrombosis. However the peroneal veins were not well visualized due to soft tissue edema. IMPRESSION: The deep venous system of each lower extremity, where visualized, is unremarkable for a deep venous thrombosis. . Dictated by: Dictated on workstation # [id number]
[2021-02-13] MEDS ORDERED: FUROSEMIDE 40 MG/4 ML INJ (LASIX) IVP ONE (10:45)
[2021-02-13] MEDS ORDERED: diphenhydrAMINE 12.5 MG/5 ML UDC (BENADRYL) PO PRN (10:45)
[2021-02-13 12:23] VITALS: BP 117/88
[2021-02-13] MEDS ORDERED: SOD POLYSTERENE 15 GM/60 ML (KAYEXALATE) UNIT DOSE PO ONE (15:15)
[2021-02-13 16:36] VITALS: BP 125/88
[2021-02-13] MEDS: guaiFENesin/CODEINE (ROBITUSSIN AC) 10ML UDC PO PRN (20:49)
[2021-02-13 20:54] VITALS: BP 113/81
[2021-02-13] MEDS ORDERED: BISMUTH SUBSALICYLATE 240 ML (PEPTO BISMOL) PO PRN (21:45)
[2021-02-14] VITALS (7 sets, daily range): BP systolic 93–118; BP diastolic 65–88
[2021-02-14 05:44] LABS: BASOPHILS % (AUTO) 0 % (0-10); EOSINOPHILS # (AUTO) 0.1 10^3/uL (0.0-0.3); EOSINOPHILS % (AUTO) 1 % (0-10); HEMATOCRIT 41 % (40-54); HEMOGLOBIN 12.9 g/dL (13.3-17.7); LYMPHOCYTES # (AUTO) 1.7 10^3/uL (1.0-4.0); LYMPHOCYTES % (AUTO) 17 % (12-44); MEAN CORPUSCULAR HEMOGLOBIN 29 pg (25-34); MEAN CORPUSCULAR HGB CONC 32 g/dL (32-36); MEAN CORPUSCULAR VOLUME 93 fL (80-99); MEAN PLATELET VOLUME 10.5 fL (9.0-12.2); MONOCYTES # (AUTO) 0.7 10^3/uL (0.0-1.0); MONOCYTES % (AUTO) 7 % (0-12); NEUTROPHILS # (AUTO) 7.8 10^3/uL (1.8-7.8); NEUTROPHILS % (AUTO) 75 % (42-75); PLATELET COUNT 138 10^3/uL (130-400); WHITE BLOOD COUNT 10.4 10^3/uL (4.3-11.0)
[2021-02-14 06:03] LABS: POTASSIUM 4.3 MMOL/L (3.6-5.0)
[2021-02-14 06:04] LABS: CALCIUM 8.6 MG/DL (8.5-10.1)
[2021-02-14 06:06] LABS: TOTAL PROTEIN 5.9 GM/DL (6.4-8.2)
[2021-02-14 06:07] LABS: BILIRUBIN,TOTAL 1.7 MG/DL (0.1-1.0)
[2021-02-14 06:09] LABS: CREATININE SERUM 0.83 MG/DL (0.60-1.30)
--- NOTE | 2021-02-14 07:39 | Progress Note - Hospitalist ---
Subjective HPI/CC On Admission Date Seen by Provider: Feb 14, 2021 Time Seen by Provider: 10:00 Subjective/Events-last exam Patient feeling much better Still congested Moving around in the room Moving down to fourth floor Needs some sleeping medication at night Oxygen maintained Anticoagulation maintained Review of Systems General: Fatigue Pulmonary: Dyspnea, Cough Objective Exam Vital Signs Vital Signs Date Time Temp Pulse Resp B/P (MAP) Pulse Ox O2 Delivery O2 Flow Rate FiO2 02/14/21 19:55 36.8 111 20 93/65 (74) 94 Nasal Cannula 2.00 02/14/21 19:25 28 Capillary Refill : Less Than 3 Seconds General Appearance: No Apparent Distress, WD/WN, Chronically ill Respiratory: Lungs Clear, No Accessory Muscle Use, No Respiratory Distress, D ecreased Breath Sounds Cardiovascular: Regular Rate, Rhythm Neurologic/Psychiatric: Alert, Oriented x3, Depressed Affect Results/Procedures Lab Laboratory Tests 02/14/21 05:24 Patient resulted labs reviewed. Assessment/Plan Assessment and Plan Assess & Plan/Chief Complaint Assessment: Acute hypoxic respiratory failure Pulmonary embolism associated with recent COVID-19 pneumonia Oxygen dependent since COVID-19 pneumonia Congestive heart failure Valvular heart disease Previous illicit drug use Smoker Recent Covid Homelessness Plan: Oral anticoagulant Oxygen PT and OT Clinical Quality Measures AMI/AHF: ASA po Prior to arrival: Yes Smoking Cessation Counseling: Counseling-Symptomatic: 3-10 Minutes Discussed Options Including: Group/Indiv Counseling SOFIA HANKINS DO Feb 14, 2021 07:39
[2021-02-14] MEDS: ROSUVASTATIN 20 MG (CRESTOR) TABLET PO SCH (08:34)
[2021-02-14] MEDS: FUROSEMIDE 40 MG (LASIX) TAB PO SCH (08:34)
[2021-02-14] MEDS: APIXABAN 5 MG (ELIQUIS) TABLET PO SCH ×2 (08:34→20:02)
[2021-02-14] MEDS: lisINopril 5 MG (PRINIVIL) TABLET PO SCH (08:34)
[2021-02-14] MEDS: PRASUGREL 10 MG (EFFIENT) TABLET PO SCH (08:34)
[2021-02-14] MEDS: ASPIRIN E.C. 81 MG (ECOTRIN) TAB PO SCH (08:34)
--- NOTE | 2021-02-14 08:37 | Diagnostic Imaging Report ---
EXAMINATION: Chest radiograph, portable AP view. DATE: 02/14/2021 4:09 AM INDICATION: 50-year-old male, shortness of breath. COMPARISON: February 12, 2021. FINDINGS: There is a left-sided cardiac assist device with leads. Heart size and mediastinal contours are unchanged. There is no identified pneumothorax. There is multifocal bilateral lung consolidation with grossly unchanged appearance since the comparison study. IMPRESSION: 1. Grossly unchanged multifocal bilateral lung consolidation. Dictated by: Dictated on workstation # [id number]
[2021-02-14] MEDS: guaiFENesin/CODEINE (ROBITUSSIN AC) 10ML UDC PO PRN (18:05)
[2021-02-14] MEDS: ACETAMINOPHEN 325 MG TABLET PO PRN (18:05)
[2021-02-14] MEDS: guaiFENesin (MUCINEX) 600 MG TAB PO SCH ×2 (18:57→20:02)
[2021-02-14] MEDS ORDERED: RT-ALBUTEROL SULF 2.5 MG/3 ML PRE-MIX VIAL INH PRN (19:45)
[2021-02-14] MEDS ORDERED: LORazepam 0.5 MG (ATIVAN) TABLET PO SCH (21:00)
[2021-02-14] MEDS: RT-ALBUTEROL SULF 2.5 MG/3 ML PRE-MIX VIAL INH SCH (21:46)
[2021-02-15 00:27] VITALS: BP 108/78
[2021-02-15 04:11] VITALS: BP 125/87
[2021-02-15 07:04] LABS: BASOPHILS % (AUTO) 0 % (0-10); EOSINOPHILS # (AUTO) 0.1 10^3/uL (0.0-0.3); EOSINOPHILS % (AUTO) 1 % (0-10); HEMATOCRIT 43 % (40-54); HEMOGLOBIN 13.5 g/dL (13.3-17.7); LYMPHOCYTES # (AUTO) 1.5 10^3/uL (1.0-4.0); LYMPHOCYTES % (AUTO) 14 % (12-44); MEAN CORPUSCULAR HEMOGLOBIN 29 pg (25-34); MEAN CORPUSCULAR HGB CONC 32 g/dL (32-36); MEAN CORPUSCULAR VOLUME 92 fL (80-99); MEAN PLATELET VOLUME 9.8 fL (9.0-12.2); MONOCYTES # (AUTO) 0.7 10^3/uL (0.0-1.0); MONOCYTES % (AUTO) 6 % (0-12); NEUTROPHILS # (AUTO) 8.1 10^3/uL (1.8-7.8); NEUTROPHILS % (AUTO) 77 % (42-75); PLATELET COUNT 141 10^3/uL (130-400); WHITE BLOOD COUNT 10.5 10^3/uL (4.3-11.0)
[2021-02-15 07:16] LABS: POTASSIUM 4.1 MMOL/L (3.6-5.0)
[2021-02-15 07:18] LABS: CALCIUM 8.7 MG/DL (8.5-10.1)
[2021-02-15 07:19] LABS: TOTAL PROTEIN 6.1 GM/DL (6.4-8.2)
[2021-02-15 07:21] LABS: BILIRUBIN,TOTAL 1.4 MG/DL (0.1-1.0)
[2021-02-15 07:22] LABS: CREATININE SERUM 0.84 MG/DL (0.60-1.30)
[2021-02-15] MEDS: RT-ALBUTEROL SULF 2.5 MG/3 ML PRE-MIX VIAL INH SCH (07:33)
[2021-02-15 08:00] VITALS: BP 103/75
[2021-02-15] MEDS ORDERED: KCL 10 MEQ TAB (MICRO K) PO SCH (08:00)
[2021-02-15] MEDS: guaiFENesin (MUCINEX) 600 MG TAB PO SCH (08:01)
[2021-02-15] MEDS: ASPIRIN E.C. 81 MG (ECOTRIN) TAB PO SCH (08:01)
[2021-02-15] MEDS: ROSUVASTATIN 20 MG (CRESTOR) TABLET PO SCH (08:01)
[2021-02-15] MEDS: PRASUGREL 10 MG (EFFIENT) TABLET PO SCH (08:01)
[2021-02-15] MEDS: APIXABAN 5 MG (ELIQUIS) TABLET PO SCH (08:01)
[2021-02-15] MEDS: lisINopril 5 MG (PRINIVIL) TABLET PO SCH (08:01)
[2021-02-15] MEDS: FUROSEMIDE 40 MG (LASIX) TAB PO SCH (08:01)
--- NOTE | 2021-02-15 08:19 | Progress Note - Hospitalist ---
Subjective HPI/CC On Admission Date Seen by Provider: Feb 15, 2021 Objective Exam Vital Signs Vital Signs Date Time Temp Pulse Resp B/P (MAP) Pulse Ox O2 Delivery O2 Flow Rate FiO2 02/15/21 11:32 36.5 114 24 99 Nasal Cannula 2.00 02/14/21 19:25 28 Capillary Refill : Less Than 3 Seconds Results/Procedures Lab Laboratory Tests 02/15/21 06:57 Patient resulted labs reviewed. Assessment/Plan Assessment and Plan Assess & Plan/Chief Complaint Assessment: Acute hypoxic respiratory failure Pulmonary embolism associated with recent COVID-19 pneumonia Oxygen dependent since COVID-19 pneumonia Congestive heart failure Valvular heart disease Previous illicit drug use Smoker Recent Covid Homelessness Plan: Oral anticoagulant Oxygen PT and OT Clinical Quality Measures AMI/AHF: ASA po Prior to arrival: Yes Smoking Cessation Counseling: Counseling-Symptomatic: 3-10 Minutes Discussed Options Including: Group/Indiv Counseling SOFIA HANKINS DO Feb 15, 2021 08:19
[2021-02-15] MEDS ORDERED: ALBU18HF2 INH (13:13)
[2021-02-15] MEDS ORDERED: APIX5TAB PO (13:13)
--- NOTE | 2021-02-15 13:13 | Discharge Summary ---
Discharge Summary Hospital Course Was the Problem List Reviewed?: Yes Problems/Dx: (1) Pulmonary embolism associated with COVID-19 Status: Acute Hospital Course Date of Admission: Feb 12, 2021 at 07:53 Admission Diagnosis : Family Physician/Provider: Luis Plunkett MD Date of Discharge: 02/15/21 Discharge Diagnosis: Pulmonary embolism, COVID-19 infection recently Congestive heart failure Valvular heart disease Hospital Course: Patient has short hospital course he was admitted for shortness of breath found to have pulmonary embolism affiliated with COVID-19 infection of recent past. Patient was maintained on his home oxygen. Cardiology was consulted no medication changes. Eliquis started and tolerated and patient was deemed stable for discharge. Labs and Pending Lab Test: Laboratory Tests 02/14/21 13:45: Glucometer 159H 02/15/21 06:57: White Blood Count 10.5, Red Blood Count 4.66, Hemoglobin 13.5, Hematocrit 43, Mean Corpuscular Volume 92, Mean Corpuscular Hemoglobin 29, Mean Corpuscular Hemoglobin Concent 32, Red Cell Distribution Width 19.5H, Platelet Count 141, Mean Platelet Volume 9.8, Immature Granulocyte % (Auto) 2, Neutrophils (%) (Auto) 77H, Lymphocytes (%) (Auto) 14, Monocytes (%) (Auto) 6, Eosinophils (%) (Auto) 1, Basophils (%) (Auto) 0, Neutrophils # (Auto) 8.1H, Lymphocytes # (Auto) 1.5, Monocytes # (Auto) 0.7, Eosinophils # (Auto) 0.1, Basophils # (Auto) 0.0, Immature Granulocyte # (Auto) 0.2H, Sodium Level 131L, Potassium Level 4.1, Chloride Level 100, Carbon Dioxide Level 20L, Anion Gap 11, Blood Urea Nitrogen 34H, Creatinine 0.84, Estimat Glomerular Filtration Rate 97, BUN/Creatinine Ratio 40, Glucose Level 103, Calcium Level 8.7, Corrected Calcium 9.5, Total Bilirubin 1.4H, Aspartate Amino Transf (AST/SGOT) 55H, Alanine Aminotransferase (ALT/SGPT) 113H, Alkaline Phosphatase 187H, Total Protein 6.1L, Albumin 3.0L Home Meds Active Ventolin Hfa (Albuterol Sulfate) 18 Gm Hfa.aer.ad 18 Gm INH QID Eliquis (Apixaban) 5 Mg Tablet 5 Mg PO BID 150 Days 2 tabs PO BID for 3 days then 1 PO BID for 6 months Reported Pepto-Bismol (Bismuth Subsalicylate) 525 Mg/15 Ml Oral.susp 30 Ml PO UD PRN Potassium Chloride 10 Meq Tab.er.prt 10 Meq PO DAILY Metoprolol Succinate 25 Mg Tab.er.24h 25 Mg PO DAILY Aspirin EC (Aspirin) 81 Mg Tablet.dr 81 Mg PO DAILY Lisinopril 5 Mg Tablet 5 Mg PO DAILY Rosuvastatin Calcium 20 Mg Tablet 20 Mg PO DAILY Furosemide 40 Mg Tablet 40 Mg PO DAILY Prasugrel HCl 10 Mg Tablet 10 Mg PO DAILY Assessment/Pt Instructions [facility] this week Discharge Planning: <30 minutes discharge planning Discharge Physical Examination Vital Signs Vital Signs Date Time Temp Pulse Resp B/P (MAP) Pulse Ox O2 Delivery O2 Flow Rate FiO2 02/15/21 11:32 36.5 114 24 99 Nasal Cannula 2.00 02/14/21 19:25 28 General Appearance: No Apparent Distress, WD/WN Respiratory: Lungs Clear, Normal Breath Sounds Cardiovascular: Regular Rate, Rhythm Extremity: Pedal Edema Neurologic/Psychiatric: Alert, Oriented x3, No Motor/Sensory Deficits, Normal Mood/Affect Allergies: Coded Allergies: No Known Drug Allergies (Unverified , 05/29/11) Discharge Summary Date of Admission Feb 12, 2021 at 07:53 Date of Discharge Discharge Date: Feb 15, 2021 Discharge Diagnosis Assessment: Acute hypoxic respiratory failure Pulmonary embolism associated with recent COVID-19 pneumonia Oxygen dependent since COVID-19 pneumonia Congestive heart failure Valvular heart disease Previous illicit drug use Smoker Recent Covid Homelessness Plan: Oral anticoagulant Oxygen PT and OT Clinical Quality Measures AMI/AHF: ASA po Prior to arrival: Yes Smoking Cessation Counseling: Counseling-Symptomatic: 3-10 Minutes Discussed Options Including: Group/Indiv Counseling SOFIA HANKINS DO Feb 15, 2021 13:13
[2021-02-15 15:40] VITALS: BP 103/75
== END 2021-02-15 15:43 | disposition home or self-care (01) ==
LOC: EDUNIT# 06:03 → ER 06:13 → 4TH 07:53 → CSD 11:43 → 4TH 02-14 15:30
PROVIDERS: ADMIT Family Medicine; ATTEND Internal Medicine
DX: I26.99 Other pulmonary embolism without acute cor pulmonale (principal); U07.1 COVID-19; I50.43 Acute on chronic combined systolic (congestive) and diastolic (congestive) heart failure; I38 Endocarditis, valve unspecified; I42.9 Cardiomyopathy, unspecified; I25.10 Atherosclerotic heart disease of native coronary artery without angina pectoris; J96.01 Acute respiratory failure with hypoxia; R74.01 Elevation of levels of liver transaminase levels; I21.4 Non-ST elevation (NSTEMI) myocardial infarction; Z79.82 Long term (current) use of aspirin; Z83.3 Family history of diabetes mellitus; Z99.89 Dependence on other enabling machines and devices; Z59.0 Homelessness; Z79.899 Other long term (current) drug therapy; Z87.891 Personal history of nicotine dependence
CPT/HCPCS: 36415; 71045; 71275; 80048; 80053; 80061; 82947; 83735; 83874; 83880; 84484; 85007; 85025; 85027; 85379; 85610; 85730; 93005; 93041; 93970; 94640; 96360; 96361

== ENCOUNTER 2021-03-07 13:09 | Inpatient (IN) | payer OTHER ==
[~2021-03-07] VITALS: Ht 187 cm; Wt 95.1 kg
[~2021-03-07 13:09] MED LIST changes: +ALBU18HF2 INH; +APIX5TAB PO; +BISM525O18 PO; +FURO40TA4 PO; +POTA10TA36 PO
[2021-03-07] MEDS ORDERED: FUROSEMIDE 40 MG/4 ML INJ (LASIX) IVP ONE (13:30)
--- NOTE | 2021-03-07 13:35 | ED Dyspnea ---
General Chief Complaint: Chest Pain Stated Complaint: CP, DIFFICULTY BREATHING, SPITTING UP BLOOD Nursing Triage Note: PT TO RM 9 BY WHEELCHAIR WITH COMPLAINT OF SOA, CP, AND COUGHING UP BLOOD. STATES HAS BEEN OUT OF HOME OXYGEN. NORMALLY WEARS 2-5LNC. PT HAS BILATERAL LOWER EXTREMITY EDEMA. Source of Information: Patient Exam Limitations: No Limitations History of Present Illness Date Seen by Provider: Mar 07, 2021 Time Seen by Provider: 13:20 Initial Comments Patient is a 50-year-old male who presents to the emergency department today with a chief complaint of shortness of breath, hemoptysis, increasing leg pain and swelling, out of his oxygen for the last several days. Patient has a history of homelessness and methamphetamine abuse although he states that he is not used meth" for 5 months". He states that he is supposed to be "clean" to receive a heart surgery at [place]. He states he is unsure of who to talk to or call about that procedure. Patient tells me since he is run out of his oxygen and has been getting more more short of breath with more more leg swelling he has not taken his daily prescribed medications in the last 2 or 3 days. Patient states that he is on 2 to 5 L of oxygen daily. He denies fever but endorses chills. As stated the cough is occasionally characterized with a bloody type sputum. He tells me that he has had a history of a pulmonary embolism fairly recently. Per review of the medications at the bedside he supposed to be on Eliquis. Endorses burning with urination and decreasing frequency of urination. Has 1 tablet of 40 mg of Lasix at the bedside and states that he cannot remember the last time he took his Lasix, possibly 2 or 3 days ago. He does not recall if he is Covid vaccinated or not. All other review of systems reviewed and negative except as stated. Timing/Duration: Increasing Severity: Severe Activities at Onset: None Prior Episodes/Possible Cause: Unknown Cause Modifying Factors: Worse With Coughing; Improves With Oxygen Associated Symptoms: Anxiety, Cough, Edema, Weakness Allergies and Home Medications Allergies Coded Allergies: No Known Drug Allergies (Unverified , 05/29/11) Patient Home Medication List Home Medication List Reviewed: Yes Albuterol Sulfate (Proair Hfa) 1 Puff Puff, 2 PUFF IH Q4H PRN for SHORTNESS OF BREATH, (Reported) Entered as Reported by: CARMENZA HUDSON on 03/09/21 103 Last Action: Reviewed Apixaban (Eliquis) 5 Mg Tablet, 5 MG PO BID, (Reported) Entered as Reported by: CARMENZA HUDSON on 03/09/211035 Last Action: Reviewed Aspirin (Aspirin EC) 81 Mg Tablet.dr, 81 MG PO DAILY, (Reported) Entered as Reported by: CARMENZA HUDSON on 02/12/211411 Last Action: Reviewed Furosemide (Furosemide) 40 Mg Tablet, 40 MG PO DAILY, (Reported) Entered as Reported by: CARMENZA HUDSON on 02/12/211411 Last Action: Reviewed Lisinopril (Lisinopril) 5 Mg Tablet, 5 MG PO DAILY, (Reported) Entered as Reported by: CARMENZA HUDSON on 02/12/211411 Last Action: Reviewed Metoprolol Succinate (Metoprolol Succinate) 25 Mg Tab.er.24h, 25 MG PO DAILY, (Reported) Entered as Reported by: CARMENZA HUDSON on 02/12/211411 Last Action: Reviewed Prasugrel HCl (Prasugrel HCl) 10 Mg Tablet, 10 MG PO DAILY, (Reported) Entered as Reported by: CARMENZA HUDSON on 02/12/211411 Last Action: Reviewed Rosuvastatin Calcium (Rosuvastatin Calcium) 20 Mg Tablet, 20 MG PO DAILY, (Reported) Entered as Reported by: CARMENZA HUDSON on 02/12/211411 Last Action: Reviewed Discontinued Medications Albuterol Sulfate (Ventolin Hfa) 18 Gm Hfa.aer.ad, 18 GM INH QID Discontinued Reason: Duplicate Order Prescribed by: SOFIA BOWIE on 02/15/211312 Last Action: Discontinued Apixaban (Eliquis) 5 Mg Tablet, 5 MG PO BID Discontinued Reason: Duplicate Order Prescribed by: SOFIA BOWIE on 02/15/211312 Last Action: Discontinued Bismuth Subsalicylate (Pepto-Bismol) 525 Mg/15 Ml Oral.susp, 30 ML PO UD PRN for INDIGESTION, (Reported) Discontinued Reason: No Longer Taking Entered as Reported by: CARMENZA HUDSON on 02/12/211415 Last Action: Discontinued Potassium Chloride (Potassium Chloride) 10 Meq Tab.er.prt, 10 MEQ PO DAILY, (Reported) Discontinued Reason: No Longer Taking Entered as Reported by: CARMENZATroy HUDSON on 02/12/21 1412 Last Action: Discontinued Review of Systems Review of Systems Constitutional: see HPI, chills EENTM: no symptoms reported Respiratory: cough, hemoptysis, phlegm Cardiovascular: no symptoms reported Gastrointestinal: no symptoms reported Genitourinary: decreased output, dysuria Musculoskeletal: joint pain, joint swelling, muscle pain Skin: no symptoms reported Psychiatric/Neurological: Anxiety All Other Systems Reviewed Negative Unless Noted: Yes Past Tnzpfkj-Ggordh-Kooxst Hx Patient Social History Smoking Status: Former Smoker Smokeless Tobacco Frequency: Former User Additional substance use comme: FORMER METH Alcohol Use?: No Pt feels they are or have been: No Immunizations Up To Date Tetanus Booster (TDap): Unknown Seasonal Allergies Seasonal Allergies: No Past Medical History Surgery/Hospitalization HX: FOUR MN'S. 3 STENTS PLACED Surgeries: Yes (LEFT SHOULDER BICEPS TENDON, HEART STENTS 02/01/19) Defibrillator Respiratory: No Currently Using CPAP: No Currently Using BIPAP: No Cardiac: Yes (heart failure) Cardiomyopathy, Coronary Artery Disease, Heart Attack, Valvular Heart Disease Neurological: No Sexually Transmitted Disease: No HIV/AIDS: No Genitourinary: No Gastrointestinal: No Musculoskeletal: Yes (LEFT SHOULDER SURGERY) Endocrine: No HEENT: No Loss of Vision: Denies Hearing Impairment: Denies Cancer: No Psychosocial: No Integumentary: No Blood Disorders: No Family Medical History Diabetes mellitus 19 MOTHER, Onset:Unknown Myocardial infarction 19 MOTHER Heart Disease, Diabetes Physical Exam Vital Signs Vital Signs - First Documented 03/07/21 13:14 Temp 35.6 Pulse 131 Resp 38 B/P (MAP) 124/87 (99) Pulse Ox 100 O2 Delivery Room Air Capillary Refill : Less Than 3 Seconds Height, Weight, BMI Height: 6'2.00" Weight: 225lbs. 15.0oz. 102.229762yc; 33.00 BMI Method:Stated General Appearance: WD/WN, Anxious, Chronically ill HEENT: PERRL/EOMI, Other (dry oral mucosa) Respiratory: Lungs Clear, No Accessory Muscle Use, No Respiratory Distress (mild), Other (tachypnea) Cardiovascular: Regular Rate, Rhythm, Tachycardia Gastrointestinal: Non Tender, Soft Extremity: Normal Range of Motion, Swelling (3+ pitting edema bilateral lower extremities) Neurologic/Psychiatric: Alert, Oriented x3, No Motor/Sensory Deficits, Other (anxious) Skin: Warm/Dry, Pallor Progress/Results/Core Measures Results/Orders Lab Results Laboratory Tests Test 03/07/21 13:17 03/07/21 14:19 Range/Units White Blood Count 11.6 H 4.3-11.0 10^3/uL Red Blood Count 4.97 4.30-5.52 10^6/uL Hemoglobin 14.5 13.3-17.7 g/dL Hematocrit 47 40-54 % Mean Corpuscular Volume 95 80-99 fL Mean Corpuscular Hemoglobin 29 25-34 pg Mean Corpuscular Hemoglobin Concent 31 L 32-36 g/dL Red Cell Distribution Width 21.6 H 10.0-14.5 % Platelet Count 263 130-400 10^3/uL Mean Platelet Volume 10.4 9.0-12.2 fL Immature Granulocyte % (Auto) 2 % Neutrophils (%) (Auto) 73 42-75 % Lymphocytes (%) (Auto) 17 12-44 % Monocytes (%) (Auto) 7 0-12 % Eosinophils (%) (Auto) 0 0-10 % Basophils (%) (Auto) 1 0-10 % Neutrophils # (Auto) 8.5 H 1.8-7.8 10^3/uL Lymphocytes # (Auto) 2.0 1.0-4.0 10^3/uL Monocytes # (Auto) 0.8 0.0-1.0 10^3/uL Eosinophils # (Auto) 0.0 0.0-0.3 10^3/uL Basophils # (Auto) 0.1 0.0-0.1 10^3/uL Immature Granulocyte # (Auto) 0.2 H 0.0-0.1 10^3/uL Sodium Level 140 135-145 MMOL/L Potassium Level 4.2 3.6-5.0 MMOL/L Chloride Level 105 98-107 MMOL/L Carbon Dioxide Level 17 L 21-32 MMOL/L Anion Gap 18 H 5-14 MMOL/L Blood Urea Nitrogen 20 H 7-18 MG/DL Creatinine 1.09 0.60-1.30 MG/DL Estimat Glomerular Filtration Rate 72 BUN/Creatinine Ratio 18 Glucose Level 126 H 70-105 MG/DL Calcium Level 9.1 8.5-10.1 MG/DL Corrected Calcium 9.8 8.5-10.1 MG/DL Total Bilirubin 1.8 H 0.1-1.0 MG/DL Aspartate Amino Transf (AST/SGOT) 29 5-34 U/L Alanine Aminotransferase (ALT/SGPT) 31 0-55 U/L Alkaline Phosphatase 160 H 40-136 U/L Total Creatine Kinase 50 30-200 U/L Troponin I 0.036 H <0.028 NG/ML B-Type Natriuretic Peptide 2558.5 H <100.0 PG/ML Total Protein 7.0 6.4-8.2 GM/DL Albumin 3.1 L 3.2-4.5 GM/DL SARS-CoV-2 RNA (RT-PCR) Not Detected Not Detecte Urine Color YELLOW Urine Clarity CLEAR Urine pH 6.0 5-9 Urine Specific [place] 1.020 1.016-1.022 Urine Protein 1+ H NEGATIVE Urine Glucose (UA) NEGATIVE NEGATIVE Urine Ketones NEGATIVE NEGATIVE Urine Nitrite NEGATIVE NEGATIVE Urine Bilirubin NEGATIVE NEGATIVE Urine Urobilinogen 1.0 < = 1.0 MG/DL Urine Leukocyte Esterase NEGATIVE NEGATIVE Urine RBC (Auto) NEGATIVE NEGATIVE Urine RBC NONE /HPF Urine WBC 0-2 /HPF Urine Squamous Epithelial Cells RARE /HPF Urine Crystals NONE /LPF Urine Bacteria NEGATIVE /HPF Urine Casts PRESENT /LPF Urine Hyaline Casts 5-10 H /LPF Urine Mucus NEGATIVE /LPF Urine Culture Indicated NO Urine Opiates Screen NEGATIVE NEGATIVE Urine Oxycodone Screen NEGATIVE NEGATIVE Urine Methadone Screen NEGATIVE NEGATIVE Urine Propoxyphene Screen NEGATIVE NEGATIVE Urine Barbiturates Screen NEGATIVE NEGATIVE Ur Tricyclic Antidepressants Screen NEGATIVE NEGATIVE Urine Phencyclidine Screen NEGATIVE NEGATIVE Urine Amphetamines Screen NEGATIVE NEGATIVE Urine Methamphetamines Screen NEGATIVE NEGATIVE Urine Benzodiazepines Screen NEGATIVE NEGATIVE Urine Cocaine Screen NEGATIVE NEGATIVE Urine Cannabinoids Screen NEGATIVE NEGATIVE My Orders Orders - ELLYN ROMERO MD Ed Iv/Invasive Line Start (03/07/21 13:29) Cbc With Automated Diff (03/07/21 13:29) Comprehensive Metabolic Panel (03/07/21 13:29) Creatine Kinase (03/07/21 13:29) Troponin I (03/07/21 13:29) BNP (03/07/21 13:29) Chest 1 View, Ap/Pa Only (03/07/21 13:29) Drug Screen Stat (Urine) (03/07/21 13:29) Ua Culture If Indicated (03/07/21 13:29) Furosemide Injection (Lasix Injection) (03/07/21 13:30) Covid 19 Inhouse Test (03/07/21 13:36) Ketorolac Injection (Toradol Injection) (03/07/21 15:00) Promethazine/ Codeine Syrup (Phenergan W (03/07/21 15:00) Medications Given in ED Vital Signs/I&O 03/07/21 03/07/21 13:14 13:27 Temp 35.6 Pulse 131 Resp 38 B/P (MAP) 124/87 (99) Pulse Ox 100 O2 Delivery Room Air Nasal Cannula Blood Pressure Mean: 99 Progress Progress Note : Time: 13:31 Progress Note initial EKG unable to be obtained secondary to equipment malfunction. Patient appears to be NSR tachycardia without ST elevation or depression on the image viewed. Lead 3 was malfunctioning and unreadable [address] Bowie, reviewed admission, will place inpatient in cardiac stepdown. Lasix, oxygen, cardiology consult. Case was also discussed with Dr. Brantley, made him aware of the admission. Diagnostic Imaging Diagonstic Imaging: Xray Plain Films/CT/US/NM/MRI: chest Comments [facility], [place] NAME: YURIY MARTINI [facility] REC#: [id number] PT STATUS: REG ER : 1970 PHYSICIAN: ELLYN ROMERO MD ADMIT DATE: 03/07/21/ER Draft Date of Exam:03/07/21 CHEST 1 VIEW, AP/PA ONLY HISTORY: Shortness of breath, hemoptysis. TECHNIQUE: Frontal view of the chest. COMPARISON: 02/14/2021 FINDINGS: There are patchy airspace opacities in the lungs bilaterally, particularly in the upper lobes and right lung base. Overall aeration appears slightly improved compared to the prior exam. There is mild cardiomegaly. The automatic implantable cardiac defibrillator leads appear stable. No pneumothorax is seen and no pleural effusion is seen. IMPRESSION: 1. Bilateral airspace opacities with mildly improved aeration since the prior exam. This may be due to edema or infection. Dictated on workstation # [id number] Dict: 03/07/21 1500 Trans: 03/07/21 1510 [id number] Interpreted by: MARLIN JIMENEZ MD Electronically signed by: Departure Communication (Admissions) Time/Spoke to Admitting Phy: 13:[address] bowie Time/Spoke to Consulting Phy: 13:[address] brantley Impression Primary Impression: Acute exacerbation of CHF (congestive heart failure) Qualified Codes: I50.43 - Acute on chronic combined systolic (congestive) and diastolic (congestive) heart failure Disposition: ADMITTED INPATIENT Condition: Stable Admissions Decision to Admit Reason: Admit from ER (General) Decision to Admit/Date: Mar 07, 2021 Time/Decision to Admit Time: 15:51 Departure-Patient Inst. Referrals: [facility] (PCP) Primary Care Physician HECTOR MEMBRENO MD (Family) Primary Care Physician ELLYN ROMERO MD Mar 07, 2021 13:35
[2021-03-07 13:36] LABS: BASOPHILS # (AUTO) 0.1 10^3/uL (0.0-0.1); BASOPHILS % (AUTO) 1 % (0-10); EOSINOPHILS % (AUTO) 0 % (0-10); HEMATOCRIT 47 % (40-54); HEMOGLOBIN 14.5 g/dL (13.3-17.7); LYMPHOCYTES % (AUTO) 17 % (12-44); MEAN CORPUSCULAR HEMOGLOBIN 29 pg (25-34); MEAN CORPUSCULAR HGB CONC 31 g/dL (32-36); MEAN CORPUSCULAR VOLUME 95 fL (80-99); MEAN PLATELET VOLUME 10.4 fL (9.0-12.2); MONOCYTES # (AUTO) 0.8 10^3/uL (0.0-1.0); MONOCYTES % (AUTO) 7 % (0-12); NEUTROPHILS # (AUTO) 8.5 10^3/uL (1.8-7.8); NEUTROPHILS % (AUTO) 73 % (42-75); PLATELET COUNT 263 10^3/uL (130-400); WHITE BLOOD COUNT 11.6 10^3/uL (4.3-11.0)
[2021-03-07 13:38] LABS: ALBUMIN 3.1 GM/DL (3.2-4.5)
[2021-03-07 13:39] LABS: POTASSIUM 4.2 MMOL/L (3.6-5.0)
[2021-03-07 13:40] LABS: CALCIUM 9.1 MG/DL (8.5-10.1)
[2021-03-07 13:43] LABS: BILIRUBIN,TOTAL 1.8 MG/DL (0.1-1.0)
[2021-03-07 13:45] LABS: CREATININE SERUM 1.09 MG/DL (0.60-1.30)
[2021-03-07 14:27] LABS: BILIRUBIN,URINE NEGATIVE (NEGATIVE); CLARITY,URINE CLEAR; COLOR,URINE YELLOW; GLUCOSE, URINE (UA) NEGATIVE (NEGATIVE); KETONES,URINE NEGATIVE (NEGATIVE); LEUKOCYTE ESTERASE ,URINE NEGATIVE (NEGATIVE); NITRITE,URINE NEGATIVE (NEGATIVE); PROTEIN,URINE 1+ (NEGATIVE)
[2021-03-07 14:36] LABS: BACTERIA,URINE NEGATIVE /HPF; SQUAMOUS EPITHELIAL CELL,UR RARE /HPF; WBC,URINE 0-2 /HPF
[2021-03-07 14:40] LABS: AMPHETAMINE SCREEN, URINE NEGATIVE (NEGATIVE); BARBITURATE SCREEN URINE NEGATIVE (NEGATIVE); BENZODIAZEPINES SCREEN URINE NEGATIVE (NEGATIVE); CANNABINOID SCREEN, URINE NEGATIVE (NEGATIVE); COCAINE SCREEN URINE NEGATIVE (NEGATIVE); METHADONE STAT NEGATIVE (NEGATIVE); METHAMPHETAMINE SCREEN URINE S NEGATIVE (NEGATIVE); OPIATE SCREEN URINE NEGATIVE (NEGATIVE); OXYCODONE STAT NEGATIVE (NEGATIVE); PROPOXYPHENE STAT NEGATIVE (NEGATIVE); TRICYCLIC ANTIDEPRESSANTS SCRE NEGATIVE (NEGATIVE)
[2021-03-07] MEDS ORDERED: KETOROLAC 30 MG/ML VIAL IVP ONE (15:00)
[2021-03-07] MEDS ORDERED: PROMETHAZINE/ CODEINE SYRUP 5 ML UDC PO ONE (15:00)
--- NOTE | 2021-03-07 15:10 | Diagnostic Imaging Report ---
HISTORY: Shortness of breath, hemoptysis. TECHNIQUE: Frontal view of the chest. COMPARISON: 02/14/2021 FINDINGS: There are patchy airspace opacities in the lungs bilaterally, particularly in the upper lobes and right lung base. Overall aeration appears slightly improved compared to the prior exam. There is mild cardiomegaly. The automatic implantable cardiac defibrillator leads appear stable. No pneumothorax is seen and no pleural effusion is seen. IMPRESSION: 1. Bilateral airspace opacities with mildly improved aeration since the prior exam. This may be due to edema or infection. Dictated by: Dictated on workstation # [id number]
[2021-03-07] MEDS ORDERED: FUROSEMIDE 40 MG/4 ML INJ (LASIX) IVP SCH (17:00)
[2021-03-07] MEDS ORDERED: CATHETER FLUSH 10 ML SYR IV PRN (17:00)
[2021-03-07] MEDS ORDERED: RT-ALBUTEROL/IPRATROPIUM 3 ML (DUONEB) VIAL INH SCH (18:00)
[2021-03-07] MEDS: CATHETER FLUSH 10 ML SYR IV SCH (22:18)
[2021-03-07] MEDS: APIXABAN 5 MG (ELIQUIS) TABLET PO SCH (22:18)
[2021-03-07] MEDS: PROMETHAZINE/ CODEINE SYRUP 5 ML UDC PO PRN (22:18)
[2021-03-07] MEDS: RT-ALBUTEROL/IPRATROPIUM 3 ML (DUONEB) VIAL INH SCH (22:21)
[2021-03-08] MEDS: RT-ALBUTEROL/IPRATROPIUM 3 ML (DUONEB) VIAL INH SCH ×4 (03:14→21:20)
[2021-03-08 05:54] LABS: POTASSIUM 3.7 MMOL/L (3.6-5.0)
[2021-03-08 05:55] LABS: CALCIUM 8.7 MG/DL (8.5-10.1)
[2021-03-08 05:59] LABS: CREATININE SERUM 1.03 MG/DL (0.60-1.30)
--- NOTE | 2021-03-08 06:34 | History & Physical-Hospitalist ---
History of Present Illness HPI/Chief Complaint Chief complaint: Shortness of breath History of present illness: This is a 50-year-old white male known to this hospital service due to multiple hospital stays historically for illicit drug use meth use causing severe cardiac issues who is withheld from illicit drug use for the last 2 months but suffered Covid pneumonia and not fully recovered maintained on home oxygen supplementation who presents to the ER with shortness of breath and lower extremity edema. He appears to be more declined every time I admit him. He appears 20 years older than stated age. He reports that he really needs the valvular heart surgery but it appears he is not a surgical candidate due to the poor reserve he has and other psychosocial issues that make rehabilitation a minimal success. Dr. Brantley has been consulted and he remains tachycardic. Source: patient, RN/MD, old records Exam Limitations: no limitations Date Seen 03/08/21 Time Seen by a Provider: 11:30 Attending Physician Edith Portillo DO [facility] Referring Physician Date of Admission Mar 07, 2021 at 15:36 Home Medications & Allergies Home Medications Reviewed patient Home Medication Reconciliation performed by pharmacy medication reconciliations land mobile radio technician and/or nursing. Patients Allergies have been reviewed. Allergies Allergies Coded Allergies No Known Drug Allergies (Aohctewozf50/17/11) Past Hckasqr-Jhsfnc-Vwnsov Hx Patient Social History Marrital Status: single Employed/Student: unemployed Tobacco Use?: No Smoking Status: Former Smoker Smokeless Tobacco Frequency: Current Everyday User, Heavy User Use of E-Cig and/or Vaping dev: No Substance use?: No Additional substance use comme: FORMER METH Alcohol Use?: No Pt feels they are or have been: No Immunizations Up To Date Tetanus Booster (TDap): Unknown Seasonal Allergies Seasonal Allergies: No Current Status Advance Directives: No Communicates: Verbally Primary Language: Slovenian Preferred Spoken Language: Slovenian Is interpretation needed?: No Implanted or Applied Medical D: Heart mechanical device, Stents Past Medical History Surgeries: Defibrillator Currently Using CPAP: No Currently Using BIPAP: No Cardiomyopathy, Coronary Artery Disease, Heart Attack, Valvular Heart Disease Sexually Transmitted Disease: No HIV/AIDS: No Loss of Vision: Denies Hearing Impairment: Denies Blood Disorders: No multiple MS's, coronary stents, cardiomyopathy, systolic HF, valvular heart disease, s/p cardioverter/defibrillator Family Medical History Diabetes mellitus 19 MOTHER, Onset:Unknown Myocardial infarction 19 MOTHER Heart Disease, Diabetes Review of Systems Constitutional: see HPI, malaise, weakness EENTM: no symptoms reported Respiratory: short of breath Cardiovascular: edema Gastrointestinal: no symptoms reported Genitourinary: no symptoms reported Musculoskeletal: no symptoms reported Skin: no symptoms reported Psychiatric/Neurological: No Symptoms Reported All Other Systems Reviewed Negative Unless Noted: Yes Physical Exam Physical Exam Vital Signs Vital Signs - First Documented 03/07/21 03/07/21 13:14 16:37 Temp 35.6 Pulse 131 Resp 38 B/P (MAP) 124/87 (99) Pulse Ox 100 O2 Delivery Room Air O2 Flow Rate 2.00 Capillary Refill : Less Than 3 Seconds Height, Weight, BMI Height: 6'2.00" Weight: 225lbs. 15.0oz. 102.848235uk; 28.59 BMI Method:Stated General Appearance: Anxious, Chronically ill, Other (Chronically ashen) Neck: Full Range of Motion, Normal Inspection, Non Tender Respiratory: Chest Non Tender, Normal Breath Sounds, No Accessory Muscle Use, No Respiratory Distress, Decreased Breath Sounds Cardiovascular: Regular Rate, Rhythm Neurologic/Psychiatric: Alert, Oriented x3, No Motor/Sensory Deficits, Normal Mood/Affect Results Results/Procedures Labs Laboratory Tests 03/07/21 13:17 03/08/21 05:15 Patient resulted labs reviewed. Assessment/Plan Admission Diagnosis Assessment: Acute exacerbation congestive heart failure COPD Former smoker Recent Covid pneumonia Oxygen dependent Valvular heart disease CAD Homelessness History of illicit drug use none for the last 2 months Plan: Dr. Brantley consultation Diuresis Monitor tachycardia Admission Status: Inpatient Order (span 2 midnights) Reason for Inpatient Admission: Acute exacerbation congestive heart failure Diagnosis/Problems Diagnosis/Problems (1) Acute exacerbation of CHF (congestive heart failure) Status: Acute Qualifiers: Heart failure type: combined systolic and diastolic Qualified Codes: I50.43 - Acute on chronic combined systolic (congestive) and diastolic (congestive) heart failure (2) Leg swelling Status: Acute Clinical Quality Measures Smoking Cessation Counseling: Counseling-Symptomatic: 3-10 Minutes Discussed Options Including: Group/Indiv Counseling EDITH PORTILLO DO Mar 08, 2021 06:34
[2021-03-08] MEDS: KCL 20 MEQ TAB (K-DUR) PO SCH (06:35)
[2021-03-08] MEDS: CATHETER FLUSH 10 ML SYR IV SCH ×3 (06:35→22:00)
[2021-03-08] MEDS ORDERED: FUROSEMIDE 40 MG/4 ML INJ (LASIX) IVP SCH ×2 (07:00→14:00)
[2021-03-08] MEDS: ROSUVASTATIN 20 MG (CRESTOR) TABLET PO SCH (07:49)
[2021-03-08] MEDS: APIXABAN 5 MG (ELIQUIS) TABLET PO SCH ×2 (07:49→19:53)
[2021-03-08] MEDS: ACETAMINOPHEN 325 MG TABLET PO PRN (07:50)
[2021-03-08] MEDS ORDERED: PRASUGREL 10 MG (EFFIENT) TABLET PO SCH (09:00)
[2021-03-08] MEDS: PROMETHAZINE/ CODEINE SYRUP 5 ML UDC PO PRN (14:08)
--- NOTE | 2021-03-08 14:14 | Consultation-Cardiology ---
HPI-Cardiology Cardiology Consultation: Date of Consultation 03/08/2021 Date of Admission 03/07/2021 Attending Physician Edith Hankins DO Admitting Physician [facility], [facility] Consulting Physician HECTOR SUBRAMANIAN JR, MD HPI: Time Seen by a Provider: 13:00 Chief Complaint: Reason for consultation: Heart failure. Moo is a 50-year-old male with an extensive past cardiac history. He was just discharged from the hospital 11 days ago after admission for heart failure among other problems. When he left the hospital, he went to stay with a friend. He tells me he has been taking all of his medications and using oxygen by nasal cannula. Then over the past few days, he has been noticing increasing lower extremity edema more than usual. He denies any change in his chronic shortness of breath. However, yesterday he was coughing. Then he had dry heaves. Then he either coughed up a small amount of blood or vomited a small amount of blood. He is not quite sure. Nonetheless, he became concerned and came to the hospital for further evaluation. The emergency room provider felt he was in decompensated heart failure and admitted him to the cardiac stepdown unit. Overnight, the cough has improved. He denies any fever or chills. He denies chest discomfort, paroxysmal nocturnal dyspnea, orthopnea, palpitations, or syncope. He gets some occasional lightheaded spells. As above, his chronic peripheral edema has been worse over the past few days. He denies smoking cigarettes. Review of Systems-Cardiology Review of Systems Other comments Review of 10 organ systems is as per the history of present illness, otherwise negative. All Other Systems Reviewed Negative Unless Noted: Yes [id number] Hx Patient Social History Smoking Status: Former Smoker Former smoker/When Quit: Jan 21, 2021 2nd Hand Smoke Exposure: Yes Have you traveled recently?: No Alcohol Use?: No Pt feels they are or have been: No Immunizations Up To Date Tetanus Booster (TDap): Unknown Past Medical History PMH As described under Assessment. Family Medical History Family Medical History: Fam h/o DM II No fam h/o early CAD or SCD Family History: Diabetes mellitus 19 MOTHER, Onset:Unknown Myocardial infarction 19 MOTHER Allergies and Home Medications Allergies Coded Allergies: No Known Drug Allergies (Unverified , 05/29/11) Patient Home Medication List Home Medication List Reviewed: Yes Albuterol Sulfate (Ventolin Hfa) 18 Gm Hfa.aer.ad, 18 GM INH QID Prescribed by: EDITH HANKINS on 02/15/211312 Apixaban (Eliquis) 5 Mg Tablet, 5 MG PO BID Prescribed by: EDITH HANKINS on 02/15/21 131 Aspirin (Aspirin EC) 81 Mg Tablet.dr, 81 MG PO DAILY, (Reported) Entered as Reported by: CARMENZA HUDSON on 02/12/211411 Bismuth Subsalicylate (Pepto-Bismol) 525 Mg/15 Ml Oral.susp, 30 ML PO UD PRN for INDIGESTION, (Reported) Entered as Reported by: CARMENZA HUDSON on 02/12/21 141 Furosemide (Furosemide) 40 Mg Tablet, 40 MG PO DAILY, (Reported) Entered as Reported by: CARMENZA HUDSON on 02/12/211411 Lisinopril (Lisinopril) 5 Mg Tablet, 5 MG PO DAILY, (Reported) Entered as Reported by: CARMENZA HUDSON on 02/12/211411 Metoprolol Succinate (Metoprolol Succinate) 25 Mg Tab.er.24h, 25 MG PO DAILY, (Reported) Entered as Reported by: CARMENZA HUDSON on 02/12/211411 Potassium Chloride (Potassium Chloride) 10 Meq Tab.er.prt, 10 MEQ PO DAILY, (Reported) Entered as Reported by: CARMENZA HUDSON on 02/12/211411 Prasugrel HCl (Prasugrel HCl) 10 Mg Tablet, 10 MG PO DAILY, (Reported) Entered as Reported by: CARMENZA HUDSON on 02/12/211411 Rosuvastatin Calcium (Rosuvastatin Calcium) 20 Mg Tablet, 20 MG PO DAILY, (Reported) Entered as Reported by: CARMENZA HUDSON on 02/12/211411 Exam Vital Signs Vital Signs Date Time Temp Pulse Resp B/P (MAP) Pulse Ox O2 Delivery O2 Flow Rate FiO2 03/08/21 12:49 115 03/08/21 08:50 97 Nasal Cannula 3.00 03/08/21 08:14 36.3 18 84/68 Physical Exam General: Alert. No acute distress. Well nourished and appears older than stated age. He is overweight. He appears disheveled. Eye: Extraocular movements are intact. Conjunctivae are clear. There are no xanthelasma. HENT: Normocephalic. Atraumatic. Carotid pulsations 2/2 without bruits. Neck: Jugular venous pressure does not appear elevated. No thyromegaly appreciated. Respiratory: Lungs are clear to auscultation. Respirations are non-labored. Breath sounds are equal. Symmetrical chest wall expansion. Cardiovascular: Normal rate. Regular rhythm. No murmur. No gallop. Point of maximal impulse is not appear displaced. Good pulses equal in all extremities. 3+ bilateral pretibial edema with venous stasis changes. Gastrointestinal: Soft. Normal bowel sounds. Skin: Skin turgor is normal. There is no pallor. Musculoskeletal: No kyphosis or scoliosis appreciated. Neurologic: Alert and oriented to person, place, time. Cranial nerves 3-12 appear grossly intact. The patient has good motor tone strength in the upper and lower extremities bilaterally. Psychiatric: Cooperative. Appropriate mood & affect. Labs Laboratory Tests Test 03/07/21 14:19 03/07/21 19:00 03/08/21 05:15 Range/Units Urine Color YELLOW Urine Clarity CLEAR Urine pH 6.0 5-9 Urine Specific Brooks 1.020 1.016-1.022 Urine Protein 1+ H NEGATIVE Urine Glucose (UA) NEGATIVE NEGATIVE Urine Ketones NEGATIVE NEGATIVE Urine Nitrite NEGATIVE NEGATIVE Urine Bilirubin NEGATIVE NEGATIVE Urine Urobilinogen 1.0 < = 1.0 MG/DL Urine Leukocyte Esterase NEGATIVE NEGATIVE Urine RBC (Auto) NEGATIVE NEGATIVE Urine RBC NONE /HPF Urine WBC 0-2 /HPF Urine Squamous Epithelial Cells RARE /HPF Urine Crystals NONE /LPF Urine Bacteria NEGATIVE /HPF Urine Casts PRESENT /LPF Urine Hyaline Casts 5-10 H /LPF Urine Mucus NEGATIVE /LPF Urine Culture Indicated NO Urine Opiates Screen NEGATIVE NEGATIVE Urine Oxycodone Screen NEGATIVE NEGATIVE Urine Methadone Screen NEGATIVE NEGATIVE Urine Propoxyphene Screen NEGATIVE NEGATIVE Urine Barbiturates Screen NEGATIVE NEGATIVE Ur Tricyclic Antidepressants Screen NEGATIVE NEGATIVE Urine Phencyclidine Screen NEGATIVE NEGATIVE Urine Amphetamines Screen NEGATIVE NEGATIVE Urine Methamphetamines Screen NEGATIVE NEGATIVE Urine Benzodiazepines Screen NEGATIVE NEGATIVE Urine Cocaine Screen NEGATIVE NEGATIVE Urine Cannabinoids Screen NEGATIVE NEGATIVE Troponin I 0.032 H <0.028 NG/ML Sodium Level 139 135-145 MMOL/L Potassium Level 3.7 3.6-5.0 MMOL/L Chloride Level 104 98-107 MMOL/L Carbon Dioxide Level 20 L 21-32 MMOL/L Anion Gap 15 H 5-14 MMOL/L Blood Urea Nitrogen 21 H 7-18 MG/DL Creatinine 1.03 0.60-1.30 MG/DL Estimat Glomerular Filtration Rate 77 BUN/Creatinine Ratio 20 Glucose Level 103 70-105 MG/DL Calcium Level 8.7 8.5-10.1 MG/DL Diagnosis/Problems Diagnosis/Problems (1) Acute on chronic combined systolic and diastolic congestive heart failure Status: Acute Assessment & Plan: He appears to have acute decompensation of his chronic heart failure. He has both systolic and diastolic function as well as right ventricular dysfunction and four-chamber cardiac enlargement. I suspect some of this could be due to medication noncompliance and dietary indiscretion. I concur with intravenous Lasix. Today his blood pressure is too low to resume beta-cheryl or POLA inhibitor. (2) Cardiomyopathy Status: Chronic Assessment & Plan: He has moderate left ventricular systolic dysfunction. His echocardiogram from this morning was similar to the echocardiogram from November. He had Covid infection in between these 2 echocardiograms. As such, there is not any overt evidence of worsening cardiac function related to the Covid. We will resume his guideline directed medical therapy when his blood pressure will tolerate. (3) Mitral regurgitation Assessment & Plan: He has moderate to severe mitral regurgitation. This is most likely functional mitral regurgitation related to the left ventricular dilatation. This portends a poor prognosis. Unfortunately, due to his history of noncompliance and other social issues, he would not be a good cardiac transplantation candidate. (4) Coronary artery disease without angina pectoris Status: Chronic Assessment & Plan: He is not having any active angina at this time. Most of his symptoms are probably related to the heart failure. He had borderline el evation of the troponin level which is most likely due to a type II non-ST elevation myocardial infarction related to supply/demand mismatch from the decompensated heart failure. He had been referred for consideration of bypass surgery back in September but has still not had surgery or as far as he knows, even met with a surgeon. I would suggest stopping the prasugrel since he appears to be on triple therapy with aspirin, prasugrel, and apixaban. Prasugrel has not been extensively studied with DOAC's and the latest recommendations are not to combine these 2 medications because prasugrel is an extremely effective platelet inhibitor and the risk of hemorrhagic side effects from combining these 2 medications could be prohibitively high. (5) Pulmonary hypertension Assessment & Plan: Most likely related to the chronic heart failure and mitral regurgitation. Fortunately, this only seems to be in a mild range based upon his echocardiographic findings. (6) Mixed hyperlipidemia Assessment & Plan: Continue outpatient dose of statin medication. In the past, there had been a concern about treating the patient with statins due to elevated transaminase levels. However, his transaminase levels seem to be stable. (7) Noncompliance with medication regimen Assessment & Plan: I again encouraged the patient to be compliant with his medications after discharge. (8) Cardiac defibrillator in situ Assessment & Plan: He tells me there is some sort of device malfunction. 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 Luna, when he returns tomorrow after having the weekend off. HECTOR SUBRAMANIAN JR, MD Mar 08, 2021 14:14
[2021-03-08] MEDS: FUROSEMIDE 40 MG/4 ML INJ (LASIX) IVP SCH (15:06)
[2021-03-09] MEDS: RT-ALBUTEROL/IPRATROPIUM 3 ML (DUONEB) VIAL INH SCH ×4 (02:34→20:50)
[2021-03-09 04:29] LABS: BASOPHILS # (AUTO) 0.1 10^3/uL (0.0-0.1); BASOPHILS % (AUTO) 0 % (0-10); EOSINOPHILS % (AUTO) 0 % (0-10); HEMATOCRIT 41 % (40-54); HEMOGLOBIN 12.5 g/dL (13.3-17.7); LYMPHOCYTES # (AUTO) 1.2 10^3/uL (1.0-4.0); LYMPHOCYTES % (AUTO) 11 % (12-44); MEAN CORPUSCULAR HEMOGLOBIN 28 pg (25-34); MEAN CORPUSCULAR HGB CONC 30 g/dL (32-36); MEAN CORPUSCULAR VOLUME 93 fL (80-99); MEAN PLATELET VOLUME 10.2 fL (9.0-12.2); MONOCYTES # (AUTO) 0.9 10^3/uL (0.0-1.0); MONOCYTES % (AUTO) 8 % (0-12); NEUTROPHILS # (AUTO) 9.2 10^3/uL (1.8-7.8); NEUTROPHILS % (AUTO) 79 % (42-75); PLATELET COUNT 208 10^3/uL (130-400); WHITE BLOOD COUNT 11.6 10^3/uL (4.3-11.0)
[2021-03-09 04:46] LABS: ALBUMIN 2.8 GM/DL (3.2-4.5); BILIRUBIN,TOTAL 1.3 MG/DL (0.1-1.0); CALCIUM 8.9 MG/DL (8.5-10.1); CREATININE SERUM 0.89 MG/DL (0.60-1.30); POTASSIUM 3.7 MMOL/L (3.6-5.0); TOTAL PROTEIN 6.3 GM/DL (6.4-8.2)
[2021-03-09] MEDS: KCL 20 MEQ TAB (K-DUR) PO SCH (06:00)
[2021-03-09] MEDS: FUROSEMIDE 40 MG/4 ML INJ (LASIX) IVP SCH ×2 (06:01→16:07)
[2021-03-09] MEDS: CATHETER FLUSH 10 ML SYR IV SCH ×3 (06:01→21:01)
[2021-03-09] MEDS ORDERED: FUROSEMIDE 40 MG/4 ML INJ (LASIX) IVP SCH (07:00)
[2021-03-09] MEDS: PROMETHAZINE/ CODEINE SYRUP 5 ML UDC PO PRN ×2 (07:25→16:11)
--- NOTE | 2021-03-09 08:02 | Progress Note - Cardiology ---
Cardiology SOAP Progress Note Subjective: Sitting up in bed Continues to feel SOB Occ productive cough with hemoptysis No c/o CP, palpitations, syncope or near syncope Denies any missed doses of medications States he was told his defib was not working, but unable to say who told him this Objective: I&O/Vital Signs 03/10/21 03/10/21 03/10/21 03/10/21 00:01 01:00 01:55 04:10 Temp 36.5 Pulse 101 98 112 Resp 17 20 B/P (MAP) 97/60 89/68 Pulse Ox 94 97 97 O2 Delivery High Flow N/C High Flow N/C High Flow N/C O2 Flow Rate 3.00 3.00 3.00 03/10/21 03/10/21 03/10/21 03/10/21 06:21 06:42 07:40 08:00 Temp 37.2 Pulse 106 105 101 Resp 28 B/P (MAP) 91/63 99/72 Pulse Ox 94 93 O2 Delivery High Flow N/C O2 Flow Rate 4.00 3.00 03/10/21 08:18 O2 Delivery High Flow N/C O2 Flow Rate 5.00 03/09/21 23:59 Intake Total 2180 ml Output Total 4001 ml Balance -1821 ml Weight (Pounds): 225 Weight (Ounces): 15.0 Weight (Calculated Kilograms): 102.956239 Constitutional: AAO x 3, well-developed, well-nourished Respiratory: No accessory muscle use, No respiratory distress; chest expansion is symmetric, chest is bilaterally symmetric, other (diminished lower lobes bilat; prolonged exp phase) Cardiovascular: tachycardia, systolic murmur Gastrointestional: No tender; round Extremities: significant edema (bilat pitting edema to the thighs) Neurologic/Psychiatric: grossly intact (moves all extremties) Skin: other (dry, flaky skin) Results/Procedures: Labs Laboratory Tests 03/09/21 10:20: Urine Opiates Screen POSITIVEH, Urine Oxycodone Screen NEGATIVE, Urine Methadone Screen NEGATIVE, Urine Propoxyphene Screen NEGATIVE, Urine Barbiturates Screen NEGATIVE, Ur Tricyclic Antidepressants Screen NEGATIVE, Urine Phencyclidine Screen NEGATIVE, Urine Amphetamines Screen NEGATIVE, Urine Methamphetamines Screen NEGATIVE, Urine Benzodiazepines Screen NEGATIVE, Urine Cocaine Screen NEGATIVE, Urine Cannabinoids Screen NEGATIVE 03/10/21 05:30: Sodium Level 136, Potassium Level 3.9, Chloride Level 98, Carbon Dioxide Level 25, Anion Gap 13, Blood Urea Nitrogen 17, Creatinine 0.84, Estimat Glomerular Filtration Rate 97, BUN/Creatinine Ratio 20, Glucose Level 87, Calcium Level 9.0, Magnesium Level 1.7 A/P: Assessment: Acute on chronic systolic CHF Hemoptysis of undetermined etiology - medical services managing S/P Single chamber defibrillator implantation on 10-30-2019. Functioning normally on interrogation of 03-08-21 CAD: - H/o MT in late Jan 2019 (see below) - Card cath on 02/01/19: Coronary artery disease consisting of complete ostial occlusion of the left anterior descending artery to which successful percutaneous coronary intervention was carried out. Following deployment of Alpine Xience 2.75 x 18 mm stent, there is no significant residual stenosis. A large obtuse marginal of the left circumflex shows 80% bifurcation stenosis in its distal portion. Right coronary artery is dominant and has mild disease. Elevated left ventricular end-diastolic pressure. Well preserved global left ventricular systolic function with ejection fraction approximately 55%. - Repeat intervention on 02-07-[address] Almaraz: balloon angioplasty to the ostium and proximal LAD with slow flow in the LAD with reestablishment of flow and good results. Mild disease in the circumflex and right coronary artery Dilated left ventricle with anterior wall hypokinesia to akinesia, estimated ejection fraction 30% - Last cardiac cath by Dr Almaraz on 09/17/20: Moderate to severe proximal and mid LAD, severe mid vessel disease of an OM, distal LAD fistula to the venous system / RV, dilated left ventricle with diffuse left ventricular hypokinesia ejection fraction 30% Ischemic cardiomyopathy. - Echo on 02/04/19: LVEF 40-45%, anteroseptal hypokinesis, mild conc LVH, RVSP 20 mmHg. LVEF 30% on cardiac cath of 02-07-19. - Echo of May 25, 2019 showed LVEF 30-35% - Echo of 12-08-20 showed LVEF 35-40%, mod to severe MR; mod TR; PASP 40-45 mmHg - Echo of 03-08-[address] Brantley showed LVEF 30-35%. Severely dilated RV. LA and RA mod dilated. Mod MR. Mod to severe TR. PASP 39 mmHg Transferred for consideration of CABG and repair of AV fistula and MV by Dr Almaraz to [facility] in September 2020. Not found to be a suitable candidate for any surgery due to continuing methamphetamine abuse Hyperlipidemia, by hx Tobaccoism, educated on smoking cessation (reports no usage in a month or two) Continued methamphetamine use - cessation advised (reports no usage in a month or two) Continued marijuana use - cessation advised (reports no usage in a month or two) H/O noncompliance with medications and f/u Plan: Complex management issue d/t multiple co-morbidities and non-compliance Treat decomp systolic CHF with diuretics Tachycardia - give IV dig ICM- start low dose POLA and Coreg (d/t somewhat low BP) Start Aldactone Device interrogation carried out yesterday indicating multiple episodes of VT with no ICD shocks Hemoptysis of undetermined etiology - medical services managing - CTA of the chest today Start ASA d/t known h/o CAD Monitor lab closely - replace electrolytes as indicated Clinical Quality Measures Smoking Cessation Counseling: Counseling-Symptomatic: 3-10 Minutes Discussed Options Including: Group/Indiv Counseling MARGARITO IBANEZ Mar 09, 2021 08:02
[2021-03-09] MEDS: ROSUVASTATIN 20 MG (CRESTOR) TABLET PO SCH (08:09)
[2021-03-09] MEDS: APIXABAN 5 MG (ELIQUIS) TABLET PO SCH ×2 (08:09→20:35)
[2021-03-09] MEDS ORDERED: DIGOXIN 0.25 MG/ML (LANOXIN) 2 ML AMP IV ONE (08:45)
[2021-03-09] MEDS ORDERED: FUROSEMIDE 40 MG/4 ML INJ (LASIX) IVP ONE (08:45)
[2021-03-09] MEDS: SPIRONOLACTONE 25 MG (ALDACTONE) TAB PO SCH (08:49)
[2021-03-09] MEDS: lisINopril 5 MG (PRINIVIL) TABLET PO SCH (08:50)
[2021-03-09] MEDS ORDERED: ASPIRIN 81 MG CHEW (CHILDREN'S ASA) PO ONE (09:15)
[2021-03-09] MEDS ORDERED: IOHEXOL 350 MG/ML 100 ML (OMNIPAQUE 350) VIAL IV ONE (10:15)
[2021-03-09] MEDS ORDERED: CATHETER FLUSH 10 ML SYR IV PRN (10:15)
[2021-03-09] MEDS ORDERED: HOLD METFORMIN - RECEIVED CONTRAST 20 ML VIAL IV SCH (10:15)
[2021-03-09] MEDS ORDERED: NS 100 ML (IVPB) BAG IV ONE (10:15)
[2021-03-09] MEDS ORDERED: RT-ALBUINH IH (10:36)
[2021-03-09] MEDS ORDERED: APIX5TAB PO (10:36)
[2021-03-09 10:52] LABS: AMPHETAMINE SCREEN, URINE NEGATIVE (NEGATIVE); BARBITURATE SCREEN URINE NEGATIVE (NEGATIVE); BENZODIAZEPINES SCREEN URINE NEGATIVE (NEGATIVE); CANNABINOID SCREEN, URINE NEGATIVE (NEGATIVE); COCAINE SCREEN URINE NEGATIVE (NEGATIVE); METHADONE STAT NEGATIVE (NEGATIVE); METHAMPHETAMINE SCREEN URINE S NEGATIVE (NEGATIVE); OPIATE SCREEN URINE POSITIVE (NEGATIVE); OXYCODONE STAT NEGATIVE (NEGATIVE); PROPOXYPHENE STAT NEGATIVE (NEGATIVE); TRICYCLIC ANTIDEPRESSANTS SCRE NEGATIVE (NEGATIVE)
--- NOTE | 2021-03-09 10:59 | Diagnostic Imaging Report ---
PROCEDURE: CT angiography of the chest with contrast. TECHNIQUE: Multiple contiguous axial images were obtained through the chest after uneventful bolus administration of intravenous contrast. 3D reconstructed CTA MIP acquisitions were also performed. Auto Exposure Controls were utilized during the CT exam to meet ALARA standards for radiation dose reduction. INDICATION: Hemoptysis. COMPARISON: Prior CT chest study from 02/12/2021. FINDINGS: Evaluation of the pulmonary arterial system demonstrates persistent filling defect within a segmental branch in the left upper lobe, partially occlusive. There is new segmental emboli involving the medial left lower lobe pulmonary arterial branches. No definite right-sided pulmonary emboli are present. There is no evidence of right heart strain. There is no pericardial fluid. A right-sided pleural effusion has increased since the prior exam but does layer dependently and appears to be nonloculated. There is a trace left pleural effusion. Patchy airspace infiltrates throughout both upper and lower lobes persist. Infiltrate in the left lower lobe does appear to be increased. There is a small amount of perihepatic ascites in the right upper quadrant. IMPRESSION: 1. Persistent left upper lobe pulmonary embolism with new left lower lobe segmental pulmonary emboli. No right-sided emboli are seen. There is no evidence of right heart strain. 2. Increasing right-sided pleural effusion which is now moderate. 3. Bilateral pulmonary infiltrates, increasing in the left lower lobe. Dictated by: Dictated on workstation # [id number]
--- NOTE | 2021-03-09 11:40 | Progress Note - Cardiology ---
Cardiology SOAP Progress Note Subjective: Gen malaise and weakness Shortness of breath with minimal activity No n/v/d No cp or palp or syncope or ICD shocks Objective: I&O/Vital Signs 03/08/21 03/09/21 03/09/21 03/09/21 23:40 00:00 00:36 01:00 Pulse 116 117 117 Resp 32 31 B/P (MAP) 100/85 Pulse Ox 99 91 O2 Delivery OxyMask OxyMask OxyMask O2 Flow Rate 5.00 5.00 7.00 03/09/21 03/09/21 03/09/21 03/09/21 02:34 03:45 04:00 06:05 Temp 36.2 Pulse 120 Resp 26 B/P (MAP) 117/86 Pulse Ox 95 92 92 O2 Delivery OxyMask OxyMask High Flow N/C O2 Flow Rate 5.00 7.00 4.00 03/09/21 03/09/21 03/09/21 03/09/21 06:48 07:52 08:10 08:19 Temp 36.4 Pulse 132 135 Resp 24 B/P (MAP) 127/101 Pulse Ox 94 O2 Delivery OxyMask High Flow N/C High Flow N/C O2 Flow Rate 10.00 5.00 5.00 03/09/21 09:58 Pulse Ox 96 O2 Delivery High Flow N/C O2 Flow Rate 5.00 03/09/21 00:00 Intake Total 450 ml Output Total 1125 ml Balance -675 ml Weight (Pounds): 225 Weight (Ounces): 15.0 Weight (Calculated Kilograms): 102.627185 Constitutional: AAO x 3, well-developed, well-nourished Respiratory: No accessory muscle use, No respiratory distress; chest expansion is symmetric, chest is bilaterally symmetric, other (diminished lower lobes bilat; prolonged exp phase) Cardiovascular: tachycardia, systolic murmur Gastrointestional: No tender; round Extremities: significant edema (bilat pitting edema to the thighs) Neurologic/Psychiatric: grossly intact (moves all extremties) Skin: other (dry, flaky skin) Results/Procedures: Labs Laboratory Tests 03/09/21 04:20: White Blood Count 11.6H, Red Blood Count 4.42, Hemoglobin 12.5L, Hematocrit 41, Mean Corpuscular Volume 93, Mean Corpuscular Hemoglobin 28, Mean Corpuscular Hemoglobin Concent 30L, Red Cell Distribution Width 21.5H, Platelet Count 208, Mean Platelet Volume 10.2, Immature Granulocyte % (Auto) 1, Neutrophils (%) (Auto) 79H, Lymphocytes (%) (Auto) 11L, Monocytes (%) (Auto) 8, Eosinophils (%) (Auto) 0, Basophils (%) (Auto) 0, Neutrophils # (Auto) 9.2H, Lymphocytes # (Auto) 1.2, Monocytes # (Auto) 0.9, Eosinophils # (Auto) 0.0, Basophils # (Auto) 0.1, Immature Granulocyte # (Auto) 0.2H, Sodium Level 137, Potassium Level 3.7, Chloride Level 102, Carbon Dioxide Level 21, Anion Gap 14, Blood Urea Nitrogen 19H, Creatinine 0.89, Estimat Glomerular Filtration Rate 91, BUN/Creatinine Ratio 21, Glucose Level 123H, Calcium Level 8.9, Corrected Calcium 9.9, Total Bilirubin 1.3H, Aspartate Amino Transf (AST/SGOT) 26, Alanine Aminotransferase (ALT/SGPT) 25, Alkaline Phosphatase 148H, Total Protein 6.3L, Albumin 2.8L 03/09/21 10:20: Urine Opiates Screen POSITIVEH, Urine Oxycodone Screen NEGATIVE, Urine Methadone Screen NEGATIVE, Urine Propoxyphene Screen NEGATIVE, Urine Barbiturates Screen NEGATIVE, Ur Tricyclic Antidepressants Screen NEGATIVE, Urine Phencyclidine Screen NEGATIVE, Urine Amphetamines Screen NEGATIVE, Urine Methamphetamines Scre en NEGATIVE, Urine Benzodiazepines Screen NEGATIVE, Urine Cocaine Screen NEGATIVE, Urine Cannabinoids Screen NEGATIVE Laboratory Tests 03/07/21 13:17 03/08/21 05:15 03/09/21 04:20 A/P: Assessment: Acute on chronic systolic CHF A fib/flutter with RVR Hemoptysis of undetermined etiology - medical services managing S/P Single chamber defibrillator implantation on 10-30-2019. Functioning normally on interrogation of 03-08-21 CAD: - H/o [place] in late Jan 2019 (see below) - Card cath on 02/01/19: Coronary artery disease consisting of complete ostial occlusion of the left anterior descending artery to which successful percutaneous coronary intervention was carried out. Following deployment of Alpine Xience 2.75 x 18 mm stent, there is no significant residual stenosis. A large obtuse marginal of the left circumflex shows 80% bifurcation stenosis in its distal portion. Right coronary artery is dominant and has mild disease. Elevated left ventricular end-diastolic pressure. Well preserved global left ventricular systolic function with ejection fraction approximately 55%. - Repeat intervention on 02-07-[address] Almaraz: balloon angioplasty to the ostium and proximal LAD with slow flow in the LAD with reestablishment of flow and good results. Mild disease in the circumflex and right coronary artery Dilated left ventricle with anterior wall hypokinesia to akinesia, estimated ejection fraction 30% - Last cardiac cath by Dr Almaraz on 09/17/20: Moderate to severe proximal and mid LAD, severe mid vessel disease of an OM, distal LAD fistula to the venous system / RV, dilated left ventricle with diffuse left ventricular hypokinesia ejection fraction 30% Ischemic cardiomyopathy. - Echo on 02/04/19: LVEF 40-45%, anteroseptal hypokinesis, mild conc LVH, RVSP 20 mmHg. LVEF 30% on cardiac cath of 02-07-19. - Echo of May 25, 2019 showed LVEF 30-35% - Echo of 12-08-20 showed LVEF 35-40%, mod to severe MR; mod TR; PASP 40-45 mmHg - Echo of 03-08-[address] Brantley showed LVEF 30-35%. Severely dilated RV. LA and RA mod dilated. Mod MR. Mod to severe TR. PASP 39 mmHg Transferred for consideration of CABG and repair of AV fistula and MV by Dr Almaraz to [facility] in September 2020. Not found to be a suitable candidate for any surgery due to continuing methamphetamine abuse Hyperlipidemia, by hx Tobaccoism, educated on smoking cessation (reports no usage in a month or two) Continued methamphetamine use - cessation advised (reports no usage in a month or two) Continued marijuana use - cessation advised (reports no usage in a month or two) H/O noncompliance with medications and f/u Plan: Complex management issue d/t multiple co-morbidities and non-compliance Treat decomp systolic CHF with diuretics Tachycardia - give IV dig ICM- start low dose POLA and Coreg (d/t somewhat low BP) Start Aldactone Device interrogation carried out yesterday indicating multiple episodes of VT with no ICD shocks Hemoptysis of undetermined etiology - medical services managing - CTA of the chest today Start ASA d/t known h/o CAD Monitor lab closely - replace electrolytes as indicated Clinical Quality Measures Smoking Cessation Counseling: Counseling-Symptomatic: 3-10 Minutes Discussed Options Including: Group/Indiv Counseling ALETHEA ALMAZAN MD [facility] Mar 09, 2021 11:40
--- NOTE | 2021-03-09 12:07 | Progress Note ---
Subjective Subjective/Events-last exam Patient states that he is still feeling short of breath this AM. He does feel palpitations occasionally and has associated chest pain and worsening shortness of breath with these episodes. Tolerating PO diet. Significant shortness of breath with any mobility Review of Systems Pulmonary: Dyspnea, Cough Cardiovascular: Chest Pain, Palpitations Gastrointestinal: Vomiting; No: Nausea Genitourinary: No Dysuria, No Frequency Neurological: Weakness, Incoordination Objective Exam Last Set of Vital Signs Vital Signs Date Time Temp Pulse Resp B/P (MAP) Pulse Ox O2 Delivery O2 Flow Rate FiO2 03/09/21 09:58 96 High Flow N/C 5.00 03/09/21 07:52 36.4 135 24 127/101 Capillary Refill : Less Than 3 Seconds I&O Intake and Output 03/09/21 00:00 Intake Total 550 ml Output Total 1425 ml Balance -875 ml Intake Oral 550 ml Output Urine Total 1425 ml General: Alert, Oriented X3, Moderate Distress (with any movement) Lungs: Clear to Auscultation, Normal Air Movement Heart: No Murmurs, Other (Tachycardic rate) Abdomen: Normal Bowel Sounds, Soft, No Tenderness Extremities: Other (3+ pitting edema bilaterally) Skin: No Rashes Neuro: Normal Speech, Strength at 5/5 X4 Ext, Sensation Intact, Cranial Nerves 3-12 NL Psych/Mental Status: Mental Status NL, Mood NL Results/Procedures Lab Laboratory Tests 03/09/21 04:20: White Blood Count 11.6H, Red Blood Count 4.42, Hemoglobin 12.5L, Hematocrit 41, Mean Corpuscular Volume 93, Mean Corpuscular Hemoglobin 28, Mean Corpuscular Hemoglobin Concent 30L, Red Cell Distribution Width 21.5H, Platelet Count 208, Mean Platelet Volume 10.2, Immature Granulocyte % (Auto) 1, Neutrophils (%) (Auto) 79H, Lymphocytes (%) (Auto) 11L, Monocytes (%) (Auto) 8, Eosinophils (%) (Auto) 0, Basophils (%) (Auto) 0, Neutrophils # (Auto) 9.2H, Lymphocytes # (Auto) 1.2, Monocytes # (Auto) 0.9, Eosinophils # (Auto) 0.0, Basophils # (Auto) 0.1, Immature Granulocyte # (Auto) 0.2H, Sodium Level 137, Potassium Level 3.7, Chloride Level 102, Carbon Dioxide Level 21, Anion Gap 14, Blood Urea Nitrogen 19H, Creatinine 0.89, Estimat Glomerular Filtration Rate 91, BUN/Creatinine Ratio 21, Glucose Level 123H, Calcium Level 8.9, Corrected Calcium 9.9, Total Bilirubin 1.3H, Aspartate Amino Transf (AST/SGOT) 26, Alanine Aminotransferase (ALT/SGPT) 25, Alkaline Phosphatase 148H, Total Protein 6.3L, Albumin 2.8L 03/09/21 10:20: Urine Opiates Screen POSITIVEH, Urine Oxycodone Screen NEGATIVE, Urine Methadone Screen NEGATIVE, Urine Propoxyphene Screen NEGATIVE, Urine Barbiturates Screen NEGATIVE, Ur Tricyclic Antidepressants Screen NEGATIVE, Urine Phencyclidine Screen NEGATIVE, Urine Amphetamines Screen NEGATIVE, Urine Methamphetamines Screen NEGATIVE, Urine Benzodiazepines Screen NEGATIVE, Urine Cocaine Screen NEGATIVE, Urine Cannabinoids Screen NEGATIVE Assessment/Plan Assessment/Plan (1) Acute on chronic combined systolic and diastolic congestive heart failure Status: Acute Assessment & Plan: 03/09: Cardiology consulted and managing, appreciate recommendations, continues to have significant LE edema (2) Ischemic cardiomyopathy Status: Chronic (3) Pulmonary embolism Status: Acute Assessment & Plan: 03/09: Continue Eliquis Qualifiers: Qualified Codes: I27.82 - Chronic pulmonary embolism (4) Mitral regurgitation Status: Chronic Assessment & Plan: 03/09: at this time patient not a surgical candidate Qualifiers: Qualified Codes: I34.0 - Nonrheumatic mitral (valve) insufficiency (5) HLD (hyperlipidemia) Status: Chronic Qualifiers: Qualified Codes: E78.2 - Mixed hyperlipidemia (6) Noncompliance with medication regimen Status: Chronic (7) Tobacco abuse Status: Chronic (8) Methamphetamine abuse Status: Chronic (9) DVT prophylaxis Status: Acute Assessment & Plan: - Patient with acute PE, continue OAC Clinical Quality Measures Smoking Cessation Counseling: Counseling-Symptomatic: 3-10 Minutes Discussed Options Including: Group/Indiv Counseling TANIYA HERRING MD Mar 09, 2021 12:07
[2021-03-10] MEDS: RT-ALBUTEROL/IPRATROPIUM 3 ML (DUONEB) VIAL INH SCH ×4 (01:55→21:10)
[2021-03-10] MEDS: PROMETHAZINE/ CODEINE SYRUP 5 ML UDC PO PRN (04:08)
[2021-03-10] MEDS: CATHETER FLUSH 10 ML SYR IV SCH ×3 (06:09→21:17)
[2021-03-10 06:17] LABS: CREATININE SERUM 0.84 MG/DL (0.60-1.30); MAGNESIUM 1.7 MG/DL (1.6-2.4); POTASSIUM 3.9 MMOL/L (3.6-5.0)
[2021-03-10] MEDS: KCL 20 MEQ TAB (K-DUR) PO SCH (06:20)
[2021-03-10] MEDS: DIGOXIN 0.25 MG (LANOXIN) TAB PO SCH (08:07)
[2021-03-10] MEDS: ROSUVASTATIN 20 MG (CRESTOR) TABLET PO SCH (08:07)
[2021-03-10] MEDS: ASPIRIN 81 MG CHEW (CHILDREN'S ASA) PO SCH (08:07)
[2021-03-10] MEDS: lisINopril 5 MG (PRINIVIL) TABLET PO SCH (08:08)
[2021-03-10] MEDS: APIXABAN 5 MG (ELIQUIS) TABLET PO SCH ×2 (08:09→21:17)
[2021-03-10] MEDS: SPIRONOLACTONE 25 MG (ALDACTONE) TAB PO SCH (08:09)
[2021-03-10] MEDS ORDERED: DIGOXIN 0.125 MG (LANOXIN) TAB PO SCH (09:00)
[2021-03-10] MEDS: FUROSEMIDE 40 MG/4 ML INJ (LASIX) IVP SCH ×2 (09:00→16:54)
--- NOTE | 2021-03-10 09:49 | Progress Note - Cardiology ---
Cardiology SOAP Progress Note Subjective: Sitting up in bed C/O left sided pain which starts in his lower back, left side and radiates up into his chest and shoulder. Worse with movement C/O sharp stabbing pains with deep breathing Feels SOB is somewhat better C/O continued LE swelling, which is somewhat better Objective: I&O/Vital Signs 03/10/21 03/10/21 03/10/21 03/10/21 01:55 04:10 06:21 06:42 Temp 36.5 Pulse 112 106 105 Resp 20 B/P (MAP) 89/68 91/63 Pulse Ox 97 97 O2 Delivery High Flow N/C High Flow N/C O2 Flow Rate 3.00 3.00 03/10/21 03/10/21 03/10/21 07:40 08:00 08:18 Temp 37.2 Pulse 101 Resp 28 B/P (MAP) 99/72 Pulse Ox 94 93 O2 Delivery High Flow N/C High Flow N/C O2 Flow Rate 4.00 3.00 5.00 03/10/21 00:00 Intake Total 2180 ml Output Total 4001 ml Balance -1821 ml Weight (Pounds): 225 Weight (Ounces): 15.0 Weight (Calculated Kilograms): 102.974680 Constitutional: AAO x 3, well-developed, well-nourished Respiratory: No accessory muscle use, No respiratory distress; chest expansion is symmetric, chest is bilaterally symmetric, other (diminished lower lobes bilat; prolonged exp phase) Cardiovascular: tachycardia, systolic murmur Gastrointestional: No tender; round Extremities: significant edema (bilat pitting edema to the thighs) Neurologic/Psychiatric: grossly intact (moves all extremties) Skin: other (dry, flaky skin) Results/Procedures: Labs Laboratory Tests 03/10/21 05:30: Sodium Level 136, Potassium Level 3.9, Chloride Level 98, Carbon Dioxide Level 25, Anion Gap 13, Blood Urea Nitrogen 17, Creatinine 0.84, Estimat Glomerular Filtration Rate 97, BUN/Creatinine Ratio 20, Glucose Level 87, Calcium Level 9.0, Magnesium Level 1.7 Procedures NAME: YURIY MARTINI Jojo [facility] REC#: [id number] PT STATUS: ADM IN : 1970 PHYSICIAN: MARGARITO IBANEZ ADMIT DATE: 03/07/21[facility] Signed Date of Exam:03/09/21 CT ANGIO CHEST W PROCEDURE: CT angiography of the chest with contrast. TECHNIQUE: Multiple contiguous axial images were obtained through the chest after uneventful bolus administration of intravenous contrast. 3D reconstructed CTA MIP acquisitions were also performed. Auto Exposure Controls were utilized during the CT exam to meet ALARA standards for radiation dose reduction. INDICATION: Hemoptysis. COMPARISON: Prior CT chest study from 02/12/2021. FINDINGS: Evaluation of the pulmonary arterial system demonstrates persistent filling defect within a segmental branch in the left upper lobe, partially occlusive. There is new segmental emboli involving the medial left lower lobe pulmonary arterial branches. No definite right-sided pulmonary emboli are present. There is no evidence of right heart strain. There is no pericardial fluid. A right-sided pleural effusion has increased since the prior exam but does layer dependently and appears to be nonloculated. There is a trace left pleural effusion. Patchy airspace infiltrates throughout both upper and lower lobes persist. Infiltrate in the left lower lobe does appear to be increased. There is a small amount of perihepatic ascites in the right upper quadrant. IMPRESSION: 1. Persistent left upper lobe pulmonary embolism with new left lower lobe segmental pulmonary emboli. No right-sided emboli are seen. There is no evidence of right heart strain. 2. Increasing right-sided pleural effusion which is now moderate. 3. Bilateral pulmonary infiltrates, increasing in the left lower lobe. Dictated by: Dictated on workstation # [id number] Dict: 03/09/21 1044 Trans: 03/09/21 1634 [id number] Interpreted by: LOVE PALACIOS MD Electronically signed by: LOVE PALACIOS MD 03/09/21 1634 A/P: Assessment: Acute on chronic systolic CHF A fib/flutter with RVR Hemoptysis of undetermined etiology - medical services managing PE - Persistent left upper lobe pulmonary embolism with new left lower lobe segmental pulmonary emboli. No right-sided emboli are seen. There is no evidence of right heart strain. Per CTA of the chest on 03-09-21 S/P Single chamber defibrillator implantation on 10-30-2019. Functioning normally on interrogation of 03-08-21 CAD: - H/o [place] in late Jan 2019 (see below) - Card cath on 02/01/19: Coronary artery disease consisting of complete ostial occlusion of the left anterior descending artery to which successful percutaneous coronary intervention was carried out. Following deployment of Alpine Xience 2.75 x 18 mm stent, there is no significant residual stenosis. A large obtuse marginal of the left circumflex shows 80% bifurcation stenosis in its distal portion. Right coronary artery is dominant and has mild disease. Elevated left ventricular end-diastolic pressure. Well preserved global left ventricular systolic function with ejection fraction approximately 55%. - Repeat intervention on 02-07-[address] Almaraz: balloon angioplasty to the ostium and proximal LAD with slow flow in the LAD with reestablishment of flow and good results. Mild disease in the circumflex and right coronary artery Dilated left ventricle with anterior wall hypokinesia to akinesia, estimated ejection fraction 30% - Last cardiac cath by Dr Almaraz on 09/17/20: Moderate to severe proximal and mid LAD, severe mid vessel disease of an OM, distal LAD fistula to the venous system / RV, dilated left ventricle with diffuse left ventricular hypokinesia ejection fraction 30% Ischemic cardiomyopathy. - Echo on 02/04/19: LVEF 40-45%, anteroseptal hypokinesis, mild conc LVH, RVSP 20 mmHg. LVEF 30% on cardiac cath of 02-07-19. - Echo of May 25, 2019 showed LVEF 30-35% - Echo of 12-08-20 showed LVEF 35-40%, mod to severe MR; mod TR; PASP 40-45 mmHg - Echo of 03-08-[address] Brantley showed LVEF 30-35%. Severely dilated RV. LA and RA mod dilated. Mod MR. Mod to severe TR. PASP 39 mmHg Transferred for consideration of CABG and repair of AV fistula and MV by Dr Almaraz to [facility] in September 2020. Not found to be a suitable candidate for any surgery due to continuing methamphetamine abuse Hyperlipidemia, by hx Tobaccoism, educated on smoking cessation (reports no usage in a month or two) Continued methamphetamine use - cessation advised (reports no usage in a month or two) Continued marijuana use - cessation advised (reports no usage in a month or two) H/O noncompliance with medications and f/u Plan: Complex management issue d/t multiple co-morbidities and non-compliance Treat decomp systolic CHF with diuretics Continue dig - check dig level ICM- Continue low dose POLA and Coreg (d/t somewhat low BP) Continue Aldactone Hemoptysis of undetermined etiology - medical services managing Continue ASA d/t known h/o CAD Monitor lab closely - replace electrolytes as indicated PE - venous doppler today Clinical Quality Measures Smoking Cessation Counseling: Counseling-Symptomatic: 3-10 Minutes Discussed Options Including: Group/Indiv Counseling MARGARITO IBANEZ Mar 10, 2021 09:49
--- NOTE | 2021-03-10 11:35 | Diagnostic Imaging Report ---
PROCEDURE: US Venous Lower Ext Joe. TECHNIQUE: Multiple real-time grayscale images were obtained over the lower extremities in various projections, bilaterally. Additional duplex Doppler and color Doppler images were also obtained. INDICATION: Lower extremity swelling and pain. COMPARISON: 02/13/2021 FINDINGS: Visualized deep and superficial venous system is patent. There is no DVT. Subcutaneous edema seen throughout both legs. IMPRESSION: No DVT identified. Dictated by: Dictated on workstation # [id number]
--- NOTE | 2021-03-10 11:53 | Progress Note ---
Subjective Subjective/Events-last exam Continues to complain of tighening in his chest. Tolerating PO diet. Having shortness of breath with minimal activity Review of Systems Pulmonary: Dyspnea, Cough Cardiovascular: Chest Pain, Edema Gastrointestinal: No: Nausea, Vomiting, Abdominal Pain, Diarrhea, Constipation Neurological: Weakness, Incoordination Objective Exam Last Set of Vital Signs Vital Signs Date Time Temp Pulse Resp B/P (MAP) Pulse Ox O2 Delivery O2 Flow Rate FiO2 03/10/21 08:18 High Flow N/C 5.00 03/10/21 08:00 37.2 101 28 99/72 93 Capillary Refill : Less Than 3 Seconds I&O Intake and Output 03/10/21 00:00 Intake Total 2530 ml Output Total 4276 ml Balance -1746 ml Intake Oral 2530 ml Output Urine Total 4275 ml Stool Total 1 ml # Voids 1 General: Alert, Oriented X3, Cooperative, Mild Distress (with any activity) Lungs: Normal Air Movement, Other (end exp wheezing, no crackles present) Heart: Regular Rate, Other (+ systolic murmur) Abdomen: Normal Bowel Sounds, Soft, No Tenderness Extremities: Other (3+ pitting edema equal bilaterally) Results/Procedures Lab Laboratory Tests 03/10/21 05:30: Sodium Level 136, Potassium Level 3.9, Chloride Level 98, Carbon Dioxide Level 25, Anion Gap 13, Blood Urea Nitrogen 17, Creatinine 0.84, Estimat Glomerular Filtration Rate 97, BUN/Creatinine Ratio 20, Glucose Level 87, Calcium Level 9.0, Magnesium Level 1.7 Assessment/Plan Assessment/Plan (1) Acute on chronic combined systolic and diastolic congestive heart failure Status: Acute Assessment & Plan: 03/09: Cardiology consulted and managing, appreciate recommendations, continues to have significant LE edema 03/10: Continue Lasix, monitor renal function and potassium (2) Ischemic cardiomyopathy Status: Chronic (3) Pulmonary embolism Status: Acute Assessment & Plan: 03/09: Continue Eliquis Qualifiers: Qualified Codes: I27.82 - Chronic pulmonary embolism (4) Mitral regurgitation Status: Chronic Assessment & Plan: 03/09: at this time patient not a surgical candidate Qualifiers: Qualified Codes: I34.0 - Nonrheumatic mitral (valve) insufficiency (5) HLD (hyperlipidemia) Status: Chronic Qualifiers: Qualified Codes: E78.2 - Mixed hyperlipidemia (6) Noncompliance with medication regimen Status: Chronic (7) Tobacco abuse Status: Chronic (8) Methamphetamine abuse Status: Chronic (9) DVT prophylaxis Status: Acute Assessment & Plan: - Patient with acute PE, continue OAC Clinical Quality Measures Smoking Cessation Counseling: Counseling-Symptomatic: 3-10 Minutes Discussed Options Including: Group/Indiv Counseling TANIYA HERRING MD Mar 10, 2021 11:53
--- NOTE | 2021-03-10 12:09 | Progress Note - Cardiology ---
Cardiology SOAP Progress Note Subjective: Shortness of breath and gen malaise still present Leg swelling modestly improved No cp or palp or syncop No n/v/d Objective: I&O/Vital Signs 03/10/21 03/10/21 03/10/21 03/10/21 01:00 01:55 04:10 06:21 Temp 36.5 Pulse 98 112 106 Resp 20 B/P (MAP) 89/68 91/63 Pulse Ox 97 97 O2 Delivery High Flow N/C High Flow N/C O2 Flow Rate 3.00 3.00 03/10/21 03/10/21 03/10/21 03/10/21 06:42 07:40 08:00 08:18 Temp 37.2 Pulse 105 101 Resp 28 B/P (MAP) 99/72 Pulse Ox 94 93 O2 Delivery High Flow N/C High Flow N/C O2 Flow Rate 4.00 3.00 5.00 03/10/21 00:00 Intake Total 2180 ml Output Total 4001 ml Balance -1821 ml Weight (Pounds): 225 Weight (Ounces): 15.0 Weight (Calculated Kilograms): 102.765274 Constitutional: AAO x 3, well-developed, well-nourished Respiratory: No accessory muscle use, No respiratory distress; chest expansion is symmetric, chest is bilaterally symmetric, other (diminished lower lobes mavis at; prolonged exp phase) Cardiovascular: tachycardia, systolic murmur Gastrointestional: No tender; round Extremities: significant edema (bilat pitting edema to the thighs) Neurologic/Psychiatric: grossly intact (moves all extremties) Skin: other (dry, flaky skin) Results/Procedures: Labs Laboratory Tests 03/10/21 05:30: Sodium Level 136, Potassium Level 3.9, Chloride Level 98, Carbon Dioxide Level 25, Anion Gap 13, Blood Urea Nitrogen 17, Creatinine 0.84, Estimat Glomerular Filtration Rate 97, BUN/Creatinine Ratio 20, Glucose Level 87, Calcium Level 9.0, Magnesium Level 1.7 Laboratory Tests 03/09/21 04:20 03/10/21 05:30 A/P: Assessment: Acute on chronic systolic CHF A fib/flutter with RVR Hemoptysis of undetermined etiology - medical services managing Recurrent Pulmonary Emboli - Persistent left upper lobe pulmonary embolism with new left lower lobe segmental pulmonary emboli. No right-sided emboli are seen. There is no evidence of right heart strain. Per CTA of the chest on 03-09-21 S/P Single chamber defibrillator implantation on 10-30-2019. Functioning normally on interrogation of 03-08-21 CAD: - H/o [place] in late Jan 2019 (see below) - Card cath on 02/01/19: Coronary artery disease consisting of complete ostial occlusion of the left anterior descending artery to which successful percutaneous coronary intervention was carried out. Following deployment of Alpine Xience 2.75 x 18 mm stent, there is no significant residual stenosis. A large obtuse marginal of the left circumflex shows 80% bifurcation stenosis in its distal portion. Right coronary artery is dominant and has mild disease. Elevated left ventricular end-diastolic pressure. Well preserved global left ventricular systolic function with ejection fraction approximately 55%. - Repeat intervention on 02-07-[address] Almaraz: balloon angioplasty to the ostium and proximal LAD with slow flow in the LAD with reestablishment of flow and good results. Mild disease in the circumflex and right coronary artery Dilated left ventricle with anterior wall hypokinesia to akinesia, estimated ejection fraction 30% - Last cardiac cath by Dr Almaraz on 09/17/20: Moderate to severe proximal and mid LAD, severe mid vessel disease of an OM, distal LAD fistula to the venous system / RV, dilated left ventricle with diffuse left ventricular hypokinesia ejection fraction 30% Ischemic cardiomyopathy. - Echo on 02/04/19: LVEF 40-45%, anteroseptal hypokinesis, mild conc LVH, RVSP 20 mmHg. LVEF 30% on cardiac cath of 02-07-19. - Echo of May 25, 2019 showed LVEF 30-35% - Echo of 12-08-20 showed LVEF 35-40%, mod to severe MR; mod TR; PASP 40-45 mmHg - Echo of 03-08-[address] Brantley showed LVEF 30-35%. Severely dilated RV. LA and RA mod dilated. Mod MR. Mod to severe TR. PASP 39 mmHg Transferred for consideration of CABG and repair of AV fistula and MV by Dr Almaraz to [facility] in September 2020. Not found to be a suitable candidate for any surgery due to continuing methamphetamine abuse Hyperlipidemia, by hx Tobaccoism, educated on smoking cessation (reports no usage in a month or two) Continued methamphetamine use - cessation advised (reports no usage in a month or two) Continued marijuana use - cessation advised (reports no usage in a month or two) H/O noncompliance with medications and f/u Plan: Complex management issue d/t multiple co-morbidities and non-compliance Treat decomp systolic CHF with diuretics Continue dig - check dig level ICM- Continue low dose POLA and Coreg (d/t somewhat low BP) Continue Aldactone Hemoptysis probably due to PE - medical services managing Continue ASA d/t known h/o CAD Monitor lab closely - replace electrolytes as indicated PE - venous doppler today Clinical Quality Measures Smoking Cessation Counseling: Counseling-Symptomatic: 3-10 Minutes Discussed Options Including: Group/Indiv Counseling ALETHEA ALMAZAN MD FACP FAC [facility] Mar 10, 2021 12:09
[2021-03-10 22:37] LABS: POTASSIUM 3.4 MMOL/L (3.6-5.0)
[2021-03-10 22:38] LABS: CALCIUM 8.5 MG/DL (8.5-10.1)
[2021-03-10 22:43] LABS: CREATININE SERUM 0.75 MG/DL (0.60-1.30)
[2021-03-10 22:45] LABS: MAGNESIUM 1.5 MG/DL (1.6-2.4)
[2021-03-10] MEDS ORDERED: KCL 20 MEQ TAB (K-DUR) PO ONE (23:00)
[2021-03-11] MEDS: PROMETHAZINE/ CODEINE SYRUP 5 ML UDC PO PRN ×2 (01:42→12:50)
[2021-03-11] MEDS: RT-ALBUTEROL/IPRATROPIUM 3 ML (DUONEB) VIAL INH SCH ×4 (02:28→21:35)
[2021-03-11 05:47] LABS: BASOPHILS % (AUTO) 0 % (0-10); EOSINOPHILS % (AUTO) 0 % (0-10); HEMATOCRIT 37 % (40-54); HEMOGLOBIN 11.5 g/dL (13.3-17.7); LYMPHOCYTES % (AUTO) 7 % (12-44); MEAN CORPUSCULAR HEMOGLOBIN 28 pg (25-34); MEAN CORPUSCULAR HGB CONC 31 g/dL (32-36); MEAN CORPUSCULAR VOLUME 91 fL (80-99); MEAN PLATELET VOLUME 10.3 fL (9.0-12.2); MONOCYTES # (AUTO) 1.4 10^3/uL (0.0-1.0); MONOCYTES % (AUTO) 9 % (0-12); NEUTROPHILS # (AUTO) 12.8 10^3/uL (1.8-7.8); NEUTROPHILS % (AUTO) 83 % (42-75); PLATELET COUNT 209 10^3/uL (130-400); WHITE BLOOD COUNT 15.3 10^3/uL (4.3-11.0)
[2021-03-11] MEDS: FUROSEMIDE 40 MG/4 ML INJ (LASIX) IVP SCH ×2 (06:10→16:57)
[2021-03-11] MEDS: KCL 20 MEQ TAB (K-DUR) PO SCH (06:10)
[2021-03-11] MEDS: CATHETER FLUSH 10 ML SYR IV SCH ×3 (06:10→20:05)
[2021-03-11 06:12] LABS: ANISOCYTOSIS MODERATE; BAND NEUTROPHILS 6 %; ELLIPT/OVALOCYTES SLIGHT; HYPOCHROMASIA SLIGHT; LYMPHOCYTES % (MANUAL) 2 %; METAMYELOCYTES % 1 %; MICROCYTOSIS SLIGHT; MONOCYTES % (MANUAL) 4 %; NEUTROPHILS % (MANUAL) 87 %; POIKILOCYTOSIS SLIGHT; POLYCHROMASIA SLIGHT
[2021-03-11 06:13] LABS: SCHISTOCYTES SLIGHT
[2021-03-11 06:16] LABS: ALBUMIN 2.5 GM/DL (3.2-4.5); BILIRUBIN,TOTAL 1.6 MG/DL (0.1-1.0); CALCIUM 8.6 MG/DL (8.5-10.1); CREATININE SERUM 0.72 MG/DL (0.60-1.30); POTASSIUM 3.6 MMOL/L (3.6-5.0); TOTAL PROTEIN 5.7 GM/DL (6.4-8.2)
--- NOTE | 2021-03-11 08:23 | Progress Note - Cardiology ---
Cardiology SOAP Progress Note Subjective: Sitting up in bed eating morning meal Reports he continues to have left sided chest discomfort which is worse with movement, re-positioning and deep breaths Describes it as a sharp stabbing pain No c/o palpitations No c/o syncope or near syncope Objective: I&O/Vital Signs 03/11/21 03/11/21 03/11/21 03/11/21 04:00 06:32 08:00 08:10 Temp 36.8 36.4 Pulse 103 109 106 Resp 25 25 B/P (MAP) 90/66 92/71 Pulse Ox 94 96 O2 Delivery High Flow N/C High Flow N/C O2 Flow Rate 3.00 5.00 3.00 03/11/21 03/11/21 03/11/21 03/11/21 09:10 09:43 12:00 12:46 Temp 36.7 Pulse 105 108 109 Resp 25 B/P (MAP) 95/70 Pulse Ox 95 94 O2 Delivery High Flow N/C High Flow N/C O2 Flow Rate 3.00 3.00 03/11/21 00:00 Intake Total 1100 ml Output Total 2300 ml Balance -1200 ml Weight (Pounds): 225 Weight (Ounces): 15.0 Weight (Calculated Kilograms): 102.821602 Constitutional: AAO x 3, well-developed, well-nourished Respiratory: No accessory muscle use, No respiratory distress; chest expansion is symmetric, chest is bilaterally symmetric, other (diminished lower lobes bilat; prolonged exp phase) Cardiovascular: tachycardia, systolic murmur Gastrointestional: No tender; round Extremities: significant edema (bilat pitting edema to the thighs) Neurologic/Psychiatric: grossly intact (moves all extremties) Skin: other (dry, flaky skin) Results/Procedures: Labs Laboratory Tests 03/10/21 22:20: Sodium Level 135, Potassium Level 3.4L, Chloride Level 95L, Carbon Dioxide Level 28, Anion Gap 12, Blood Urea Nitrogen 15, Creatinine 0.75, Estimat Glomerular Filtration Rate 111, BUN/Creatinine Ratio 20, Glucose Level 132H, Calcium Level 8.5, Magnesium Level 1.5L 03/11/21 05:30: Sodium Level 134L, Potassium Level 3.6, Chloride Level 97L, Carbon Dioxide Level 27, Anion Gap 10, Blood Urea Nitrogen 17, Creatinine 0.72, Estimat Glomerular Filtration Rate 116, BUN/Creatinine Ratio 24, Glucose Level 122H, Calcium Level 8.6, Magnesium Level 1.6, White Blood Count 15.3H, Red Blood Count 4.08L, Hemoglobin 11.5L, Hematocrit 37L, Mean Corpuscular Volume 91, Mean Corpuscular Hemoglobin 28, Mean Corpuscular Hemoglobin Concent 31L, Red Cell Distribution Width 20.3H, Platelet Count 209, Mean Platelet Volume 10.3, Immature Granulocyte % (Auto) 1, Neutrophils (%) (Auto) 83H, Lymphocytes (%) (Auto) 7L, Monocytes (%) (Auto) 9, Eosinophils (%) (Auto) 0, Basophils (%) (Auto) 0, Neutrophils # (Auto) 12.8H, Lymphocytes # (Auto) 1.0, Monocytes # (Auto) 1.4H, Eosinophils # (Auto) 0.0, Basophils # (Auto) 0.0, Immature Granulocyte # (Auto) 0.1, Neutrophils % (Manual) 87, Lymphocytes % (Manual) 2, Monocytes % (Manual) 4, Metamyelocytes % 1, Band Neutrophils 6, Polychromasia SLIGHT, Hypochromasia SLIGHT, Poikilocytosis SLIGHT, Anisocytosis MODERATE, Microcytosis SLIGHT, Macrocytosis SLIGHT, Elliptocytes SLIGHT, Schistocytes SLIGHT, Corrected Calcium 9.8, Total Bilirubin 1.6H, Aspartate Amino Transf (AST/SGOT) 31, Alanine Aminotransferase (ALT/SGPT) 23, Alkaline Phosphatase 144H, Total Protein 5.7L, Albumin 2.5L, Digoxin Level 0.44L A/P: Assessment: Episode of WCT overnight (03-10-21) - asymptomatic Acute on chronic systolic CHF A fib/flutter with RVR Hemoptysis of undetermined etiology - medical services managing Recurrent Pulmonary Emboli - Persistent left upper lobe pulmonary embolism with new left lower lobe segmental pulmonary emboli. No right-sided emboli are seen. There is no evidence of right heart strain. Per CTA of the chest on 03-09-21 S/P Single chamber defibrillator implantation on 10-30-2019. Functioning normally on interrogation of 03-08-21 CAD: - H/o [place] in late Jan 2019 (see below) - Card cath on 02/01/19: Coronary artery disease consisting of complete ostial occlusion of the left anterior descending artery to which successful percutaneous coronary intervention was carried out. Following deployment of Alpine Xience 2.75 x 18 mm stent, there is no significant residual stenosis. A large obtuse marginal of the left circumflex shows 80% bifurcation stenosis in its distal portion. Right coronary artery is dominant and has mild disease. Elevated left ventricular end-diastolic pressure. Well preserved global left ventricular systolic function with ejection fraction approximately 55%. - Repeat intervention on 02-07-[address] Almaraz: balloon angioplasty to the ostium and proximal LAD with slow flow in the LAD with reestablishment of flow and good results. Mild disease in the circumflex and right coronary artery Dilated left ventricle with anterior wall hypokinesia to akinesia, estimated ejection fraction 30% - Last cardiac cath by Dr Almaraz on 09/17/20: Moderate to severe proximal and mid LAD, severe mid vessel disease of an OM, distal LAD fistula to the venous system / RV, dilated left ventricle with diffuse left ventricular hypokinesia ejection fraction 30% Ischemic cardiomyopathy. - Echo on 02/04/19: LVEF 40-45%, anteroseptal hypokinesis, mild conc LVH, RVSP 20 mmHg. LVEF 30% on cardiac cath of 02-07-19. - Echo of May 25, 2019 showed LVEF 30-35% - Echo of 12-08-20 showed LVEF 35-40%, mod to severe MR; mod TR; PASP 40-45 mmHg - Echo of 03-08-[address] Brantley showed LVEF 30-35%. Severely dilated RV. LA and RA mod dilated. Mod MR. Mod to severe TR. PASP 39 mmHg Transferred for consideration of CABG and repair of AV fistula and MV by Dr Almaraz to [facility] in September 2020. Not found to be a suitable candidate for any surgery due to continuing methamphetamine abuse Hyperlipidemia, by hx Tobaccoism, educated on smoking cessation (reports no usage in a month or two) Continued methamphetamine use - cessation advised (reports no usage in a month or two) Continued marijuana use - cessation advised (reports no usage in a month or two) H/O noncompliance with medications and f/u Plan: Complex management issue d/t multiple co-morbidities and non-compliance Episode of WCT on 03-10-21 - start Amiodarone Replace Mag Treat decomp systolic CHF with diuretics - add metolazone to regimen Continue dig - check dig level ICM- Continue low dose POLA and Coreg (d/t somewhat low BP) Continue Aldactone Hemoptysis probably due to PE - medical services managing Continue ASA d/t known h/o CAD Monitor lab closely - replace electrolytes as indicated No evidence of DVT on venous doppler Clinical Quality Measures Smoking Cessation Counseling: Counseling-Symptomatic: 3-10 Minutes Discussed Options Including: Group/Indiv Counseling MARGARITO IBANEZ Mar 11, 2021 08:23
[2021-03-11] MEDS ORDERED: AMIODARONE FOR BOLUS 150 MG in D5W 100 ML IVPB 100 ML IV ONE (08:30)
[2021-03-11] MEDS: MAGNESIUM 1 GM/100 ML IVPB 100 ML IV SCH ×5 (08:39→10:08)
[2021-03-11] MEDS ORDERED: METOLAZONE 2.5 MG (ZAROXOLYN) TAB PO ONE (09:00)
[2021-03-11] MEDS: lisINopril 5 MG (PRINIVIL) TABLET PO SCH ×2 (09:09→10:09)
[2021-03-11] MEDS: SPIRONOLACTONE 25 MG (ALDACTONE) TAB PO SCH (09:09)
[2021-03-11] MEDS: ROSUVASTATIN 20 MG (CRESTOR) TABLET PO SCH (09:09)
[2021-03-11] MEDS: ASPIRIN 81 MG CHEW (CHILDREN'S ASA) PO SCH (09:09)
[2021-03-11] MEDS: APIXABAN 5 MG (ELIQUIS) TABLET PO SCH ×2 (09:09→20:05)
[2021-03-11] MEDS: DIGOXIN 0.25 MG (LANOXIN) TAB PO SCH (09:09)
--- NOTE | 2021-03-11 09:46 | Progress Note - Cardiology ---
Cardiology SOAP Progress Note Subjective: Vague, trans-thoracic discomfort, the same that has been present continuously for several months Shortness of breath with activity No palp or syncope No n/v/d Gen malaise and weakness No focal weakness Objective: I&O/Vital Signs 03/10/21 03/10/21 03/11/21 03/11/21 22:04 23:05 01:00 02:28 Temp 36.5 Pulse 176 107 105 Resp 20 B/P (MAP) 94/68 Pulse Ox 95 98 O2 Delivery High Flow N/C O2 Flow Rate 3.00 3.00 03/11/21 03/11/21 03/11/21 03/11/21 04:00 06:32 08:10 09:10 Temp 36.8 36.4 Pulse 103 109 106 105 Resp 25 25 B/P (MAP) 90/66 92/71 Pulse Ox 94 96 O2 Delivery High Flow N/C O2 Flow Rate 3.00 3.00 03/11/21 00:00 Intake Total 1100 ml Output Total 2300 ml Balance -1200 ml Weight (Pounds): 225 Weight (Ounces): 15.0 Weight (Calculated Kilograms): 102.440108 Constitutional: AAO x 3, well-developed, well-nourished Respiratory: No accessory muscle use, No respiratory distress; chest expansion is symmetric, chest is bilaterally symmetric, other (diminished lower lobes bilat; prolonged exp phase) Cardiovascular: tachycardia, systolic murmur Gastrointestional: No tender; round Extremities: significant edema (bilat pitting edema to the thighs) Neurologic/Psychiatric: oriented x 3, other (moves all limbs equally) Skin: other (dry, flaky skin) Results/Procedures: Labs Laboratory Tests 03/10/21 22:20: Sodium Level 135, Potassium Level 3.4L, Chloride Level 95L, Carbon Dioxide Level 28, Anion Gap 12, Blood Urea Nitrogen 15, Creatinine 0.75, Estimat Glomerular Filtration Rate 111, BUN/Creatinine Ratio 20, Glucose Level 132H, Calcium Level 8.5, Magnesium Level 1.5L 03/11/21 05:30: Sodium Level 134L, Potassium Level 3.6, Chloride Level 97L, Carbon Dioxide Level 27, Anion Gap 10, Blood Urea Nitrogen 17, Creatinine 0.72, Estimat Glomerular Filtration Rate 116, BUN/Creatinine Ratio 24, Glucose Level 122H, Calcium Level 8.6, Magnesium Level 1.6, White Blood Count 15.3H, Red Blood Count 4.08L, Hemoglobin 11.5L, Hematocrit 37L, Mean Corpuscular Volume 91, Mean Corpuscular Hemoglobin 28, Mean Corpuscular Hemoglobin Concent 31L, Red Cell Distribution Width 20.3H, Platelet Count 209, Mean Platelet Volume 10.3, Immature Granulocyte % (Auto) 1, Neutrophils (%) (Auto) 83H, Lymphocytes (%) (Auto) 7L, Monocytes (%) (Auto) 9, Eosinophils (%) (Auto) 0, Basophils (%) (Auto) 0, Neutrophils # (Auto) 12.8H, Lymphocytes # (Auto) 1.0, Monocytes # (Auto) 1.4H, Eosinophils # (Auto) 0.0, Basophils # (Auto) 0.0, Immature Granulocyte # (Auto) 0.1, Neutrophils % (Manual) 87, Lymphocytes % (Manual) 2, Monocytes % (Manual) 4, Metamyelocytes % 1, Band Neutrophils 6, Polychromasia SLIGHT, Hypochromasia SLIGHT, Poikilocytosis SLIGHT, Anisocytosis MODERATE, Microcytosis SLIGHT, Macrocytosis SLIGHT, Elliptocytes SLIGHT, Schistocytes SLIGHT, Corrected Calcium 9.8, Total Bilirubin 1.6H, Aspartate Amino Transf (AST/SGOT) 31, Alanine Aminotransferase (ALT/SGPT) 23, Alkaline Phosphatase 144H, Total Protein 5.7L, Albumin 2.5L, Digoxin Level 0.44L Laboratory Tests 03/10/21 05:30 03/10/21 22:20 03/11/21 05:30 A/P: Assessment: Episode of WCT (VT vs AF w/ RVR and BBB) overnight (03-10-21) - asymptomatic Acute on chronic systolic CHF A fib/flutter with RVR Hemoptysis of undetermined etiology - medical services managing Recurrent Pulmonary Emboli - Persistent left upper lobe pulmonary embolism with new left lower lobe segmental pulmonary emboli. No right-sided emboli are seen. There is no evidence of right heart strain. Per CTA of the chest on 03-09-21 S/P Single chamber defibrillator implantation on 10-30-2019. Functioning normally on interrogation of 03-08-21 CAD: - H/o [place] in late Jan 2019 (see below) - Card cath on 02/01/19: Coronary artery disease consisting of complete ostial occlusion of the left anterior descending artery to which successful percutaneous coronary intervention was carried out. Following deployment of Alpine Xience 2.75 x 18 mm stent, there is no significant residual stenosis. A large obtuse marginal of the left circumflex shows 80% bifurcation stenosis in its distal portion. Right coronary artery is dominant and has mild disease. Elevated left ventricular end-diastolic pressure. Well preserved global left ventricular systolic function with ejection fraction approximately 55%. - Repeat intervention on 02-07-[address] Almaraz: balloon angioplasty to the ostium and proximal LAD with slow flow in the LAD with reestablishment of flow and good results. Mild disease in the circumflex and right coronary artery Dilated left ventricle with anterior wall hypokinesia to akinesia, estimated ejection fraction 30% - Last cardiac cath by Dr Almaraz on 09/17/20: Moderate to severe proximal and mid LAD, severe mid vessel disease of an OM, distal LAD fistula to the venous system / RV, dilated left ventricle with diffuse left ventricular hypokinesia ejection fraction 30% Ischemic cardiomyopathy. - Echo on 02/04/19: LVEF 40-45%, anteroseptal hypokinesis, mild conc LVH, RVSP 20 mmHg. LVEF 30% on cardiac cath of 02-07-19. - Echo of May 25, 2019 showed LVEF 30-35% - s/p single chamber ICD for SCD prophylaxis in October 2019, functioning normally on interrogation of Jul 2020 - Echo of 12-08-20 showed LVEF 35-40%, mod to severe MR; mod TR; PASP 40-45 mmHg - Echo of 03-08-[address] Brantley showed LVEF 30-35%. Severely dilated RV. LA and RA mod dilated. Mod MR. Mod to severe TR. PASP 39 mmHg Transferred for consideration of CABG and repair of AV fistula and MV by Dr Almaraz to [facility] in September 2020. Not found to be a suitable candidate for any surgery due to continuing methamphetamine abuse Hyperlipidemia, by hx Tobaccoism, educated on smoking cessation (reports no usage in a month or two) Continued methamphetamine use - cessation advised (reports no usage in a month or two) Continued marijuana use - cessation advised (reports no usage in a month or two) H/O noncompliance with medications and f/u Plan: Complex management issue d/t multiple co-morbidities and non-compliance Episode of WCT on 03-10-21 - start Amiodarone Replace Mag Treat decomp systolic CHF with diuretics - add metolazone to regimen Continue dig - check dig level ICM- Continue low dose POLA and Coreg (d/t somewhat low BP) Continue Aldactone Hemoptysis probably due to PE - medical services managing Continue ASA d/t known h/o CAD Monitor lab closely - replace electrolytes as indicated No evidence of DVT on venous doppler Clinical Quality Measures Smoking Cessation Counseling: Counseling-Symptomatic: 3-10 Minutes Discussed Options Including: Group/Indiv Counseling ALETHEA ALMAZAN MD FACP FAC CCDS Mar 11, 2021 09:46
[2021-03-11] MEDS: AMIODARONE INJECTION 450 MG in D5W IV SOLUTION (EXCEL) 250 ML IV SCH ×2 (10:10→20:06)
--- NOTE | 2021-03-11 14:32 | Progress Note ---
Subjective Subjective/Events-last exam Patient states that he is feeling some better this AM. Episode of tachycardia overnight. Patient states that he feels the palpitations and gets short of breath during these episodes. Tolerating PO diet and ambulation. Review of Systems General: Fatigue Pulmonary: Dyspnea, Cough Cardiovascular: Chest Pain, Palpitations Gastrointestinal: No: Nausea, Vomiting, Abdominal Pain, Diarrhea, Constipation Neurological: Weakness Objective Exam Last Set of Vital Signs Vital Signs Date Time Temp Pulse Resp B/P (MAP) Pulse Ox O2 Delivery O2 Flow Rate FiO2 03/11/21 12:00 36.7 108 25 95/70 94 High Flow N/C 3.00 Capillary Refill : Less Than 3 Seconds I&O Intake and Output 03/11/21 00:00 Intake Total 1400 ml Output Total 3600 ml Balance -2200 ml Intake Oral 1400 ml Output Urine Total 3600 ml General: Alert, Oriented X3, Cooperative, No Acute Distress Lungs: Clear to Auscultation, Normal Air Movement Heart: Regular Rate, Other (intermittent tachycardic rate) Abdomen: Normal Bowel Sounds, Soft, No Tenderness, No Masses Extremities: Other (3+ pitting edema bilaterally) Neuro: Normal Speech, Sensation Intact, Cranial Nerves 3-12 NL Results/Procedures Lab Laboratory Tests 03/10/21 22:20: Sodium Level 135, Potassium Level 3.4L, Chloride Level 95L, Carbon Dioxide Level 28, Anion Gap 12, Blood Urea Nitrogen 15, Creatinine 0.75, Estimat Glomerular Filtration Rate 111, BUN/Creatinine Ratio 20, Glucose Level 132H, Calcium Level 8.5, Magnesium Level 1.5L 03/11/21 05:30: Sodium Level 134L, Potassium Level 3.6, Chloride Level 97L, Carbon Dioxide Level 27, Anion Gap 10, Blood Urea Nitrogen 17, Creatinine 0.72, Estimat Glomerular Filtration Rate 116, BUN/Creatinine Ratio 24, Glucose Level 122H, Calcium Level 8.6, Magnesium Level 1.6, White Blood Count 15.3H, Red Blood Count 4.08L, Hemoglobin 11.5L, Hematocrit 37L, Mean Corpuscular Volume 91, Mean Corpuscular Hemoglobin 28, Mean Corpuscular Hemoglobin Concent 31L, Red Cell Distribution Width 20.3H, Platelet Count 209, Mean Platelet Volume 10.3, Immature Granulocyte % (Auto) 1, Neutrophils (%) (Auto) 83H, Lymphocytes (%) (Auto) 7L, Monocytes (%) (Auto) 9, Eosinophils (%) (Auto) 0, Basophils (%) (Auto) 0, Neutrophils # (Auto) 12.8H, Lymphocytes # (Auto) 1.0, Monocytes # (Auto) 1.4H, Eosinophils # (Auto) 0.0, Basophils # (Auto) 0.0, Immature Granulocyte # (Auto) 0.1, Neutrophils % (Manual) 87, Lymphocytes % (Manual) 2, Monocytes % (Manual) 4, Metamyelocytes % 1, Band Neutrophils 6, Polychromasia SLIGHT, Hypochromasia SLIGHT, Poikilocytosis SLIGHT, Anisocytosis MODERATE, Microcytosis SLIGHT, Macrocytosis SLIGHT, Elliptocytes SLIGHT, Schistocytes SLIGHT, Corrected Calcium 9.8, Total Bilirubin 1.6H, Aspartate Amino Transf (AST/SGOT) 31, Alanine Aminotransferase (ALT/SGPT) 23, Alkaline Phosphatase 144H, Total Protein 5.7L, Albumin 2.5L, Digoxin Level 0.44L Assessment/Plan Assessment/Plan (1) Acute on chronic combined systolic and diastolic congestive heart failure Status: Acute Assessment & Plan: 03/09: Cardiology consulted and managing, appreciate recommendations, continues to have significant LE edema 03/10: Continue Lasix, monitor renal function and potassium 03/11: Continue with gentle diuresis (2) Wide-complex tachycardia Status: Acute Assessment & Plan: 03/11: Started on Amiodarone today by Cardiology (3) Ischemic cardiomyopathy Status: Chronic (4) Pulmonary embolism Status: Acute Assessment & Plan: 03/09: Continue Eliquis Qualifiers: Qualified Codes: I27.82 - Chronic pulmonary embolism (5) Mitral regurgitation Status: Chronic Assessment & Plan: 03/09: at this time patient not a surgical candidate Qualifiers: Qualified Codes: I34.0 - Nonrheumatic mitral (valve) insufficiency (6) HLD (hyperlipidemia) Status: Chronic Qualifiers: Qualified Codes: E78.2 - Mixed hyperlipidemia (7) Noncompliance with medication regimen Status: Chronic (8) Tobacco abuse Status: Chronic (9) Methamphetamine abuse Status: Chronic (10) DVT prophylaxis Status: Acute Assessment & Plan: - Patient with acute PE, continue OAC Clinical Quality Measures Smoking Cessation Counseling: Counseling-Symptomatic: 3-10 Minutes Discussed Options Including: Group/Indiv Counseling TANIYA HERRING MD Mar 11, 2021 14:32
[2021-03-12] MEDS: PROMETHAZINE/ CODEINE SYRUP 5 ML UDC PO PRN (01:03)
[2021-03-12] MEDS: RT-ALBUTEROL/IPRATROPIUM 3 ML (DUONEB) VIAL INH SCH ×3 (02:50→21:27)
[2021-03-12 06:02] LABS: HEMATOCRIT 37 % (40-54); HEMOGLOBIN 11.5 g/dL (13.3-17.7); MEAN CORPUSCULAR HEMOGLOBIN 28 pg (25-34); MEAN CORPUSCULAR HGB CONC 31 g/dL (32-36); MEAN CORPUSCULAR VOLUME 90 fL (80-99); MEAN PLATELET VOLUME 10.4 fL (9.0-12.2); PLATELET COUNT 229 10^3/uL (130-400); WHITE BLOOD COUNT 15.9 10^3/uL (4.3-11.0)
[2021-03-12 06:13] LABS: POTASSIUM 3.6 MMOL/L (3.6-5.0)
[2021-03-12 06:18] LABS: CREATININE SERUM 0.73 MG/DL (0.60-1.30)
[2021-03-12] MEDS: KCL 20 MEQ TAB (K-DUR) PO SCH (06:20)
[2021-03-12] MEDS: FUROSEMIDE 40 MG/4 ML INJ (LASIX) IVP SCH ×2 (06:20→16:47)
[2021-03-12] MEDS: METOLAZONE 2.5 MG (ZAROXOLYN) TAB PO SCH (06:20)
[2021-03-12] MEDS: CATHETER FLUSH 10 ML SYR IV SCH ×3 (06:20→22:00)
[2021-03-12 06:21] LABS: MAGNESIUM 1.7 MG/DL (1.6-2.4)
[2021-03-12 07:15] VITALS: BP 95/72
[2021-03-12] MEDS: APIXABAN 5 MG (ELIQUIS) TABLET PO SCH ×2 (07:56→20:30)
[2021-03-12] MEDS: DIGOXIN 0.25 MG (LANOXIN) TAB PO SCH (07:56)
[2021-03-12] MEDS: ASPIRIN 81 MG CHEW (CHILDREN'S ASA) PO SCH (07:56)
[2021-03-12] MEDS: lisINopril 5 MG (PRINIVIL) TABLET PO SCH (07:57)
[2021-03-12] MEDS: SPIRONOLACTONE 25 MG (ALDACTONE) TAB PO SCH (07:57)
[2021-03-12] MEDS: ROSUVASTATIN 20 MG (CRESTOR) TABLET PO SCH (07:57)
--- NOTE | 2021-03-12 08:34 | Progress Note - Cardiology ---
Cardiology SOAP Progress Note Subjective: Lying in bed No c/o palpitations Continued chest discomfort at before, unchanged Continued SOB, which is somewhat better LE swelling improved Objective: I&O/Vital Signs 03/12/21 03/12/21 03/12/21 03/12/21 04:00 07:00 07:13 07:15 Temp 36.8 36.8 Pulse 92 93 92 Resp 21 B/P (MAP) 95/72 Pulse Ox 99 97 97 O2 Delivery High Flow N/C High Flow N/C O2 Flow Rate 3.00 3.00 03/12/21 03/12/21 03/12/21 03/12/21 08:00 08:00 12:00 13:00 Temp 35.6 35.7 Pulse 93 86 90 Resp 28 30 B/P (MAP) 103/74 91/65 Pulse Ox 98 98 O2 Delivery High Flow N/C High Flow N/C High Flow N/C O2 Flow Rate 3.00 3.00 3.00 03/12/21 00:00 Intake Total 1510 ml Output Total 2050 ml Balance -540 ml Weight (Pounds): 225 Weight (Ounces): 15.0 Weight (Calculated Kilograms): 102.815763 Constitutional: AAO x 3, well-developed, well-nourished Respiratory: No accessory muscle use, No respiratory distress; chest expansion is symmetric, chest is bilaterally symmetric, other (diminished lower lobes bilat; prolonged exp phase) Cardiovascular: tachycardia, systolic murmur Gastrointestional: No tender; round Extremities: significant edema (bilat pitting edema of the calves and feet bilat (improving)) Neurologic/Psychiatric: oriented x 3, other (moves all limbs equally) Skin: other (dry, flaky skin) Results/Procedures: Labs Laboratory Tests 03/12/21 05:49: White Blood Count 15.9H, Red Blood Count 4.11L, Hemoglobin 11.5L, Hematocrit 37L , Mean Corpuscular Volume 90, Mean Corpuscular Hemoglobin 28, Mean Corpuscular Hemoglobin Concent 31L, Red Cell Distribution Width 20.2H, Platelet Count 229, Mean Platelet Volume 10.4, Sodium Level 130L, Potassium Level 3.6, Chloride Level 94L, Carbon Dioxide Level 24, Anion Gap 12, Blood Urea Nitrogen 20H, Creatinine 0.73, Estimat Glomerular Filtration Rate 114, BUN/Creatinine Ratio 27, Glucose Level 129H, Calcium Level 9.0, Magnesium Level 1.7 A/P: Assessment: Episode of WCT (VT vs AF w/ RVR and BBB) overnight (03-10-21) - asymptomatic Acute on chronic systolic CHF - improving A fib/flutter with RVR - rate improved Hemoptysis of undetermined etiology - medical services managing Recurrent Pulmonary Emboli - Persistent left upper lobe pulmonary embolism with new left lower lobe segmental pulmonary emboli. No right-sided emboli are seen. There is no evidence of right heart strain. Per CTA of the chest on 03-09-21 - No evidence of DVT on venous doppler of 03-10-21 S/P Single chamber defibrillator implantation on 10-30-2019 - device interrogated on 03-11-21 CAD: - H/o [place] in late Jan 2019 (see below) - Card cath on 02/01/19: Coronary artery disease consisting of complete ostial occlusion of the left anterior descending artery to which successful percutaneous coronary intervention was carried out. Following deployment of Alpine Xience 2.75 x 18 mm stent, there is no significant residual stenosis. A large obtuse marginal of the left circumflex shows 80% bifurcation stenosis in its distal portion. Right coronary artery is dominant and has mild disease. Elevated left ventricular end-diastolic pressure. Well preserved global left ventricular systolic function with ejection fraction approximately 55%. - Repeat intervention on 02-07-[address] Almaraz: balloon angioplasty to the ostium and proximal LAD with slow flow in the LAD with reestablishment of flow and good results. Mild disease in the circumflex and right coronary artery Dilated left ventricle with anterior wall hypokinesia to akinesia, estimated ejection fraction 30% - Last cardiac cath by Dr Almaraz on 09/17/20: Moderate to severe proximal and mid LAD, severe mid vessel disease of an OM, distal LAD fistula to the venous system / RV, dilated left ventricle with diffuse left ventricular hypokinesia ejection fraction 30% Ischemic cardiomyopathy. - Echo on 02/04/19: LVEF 40-45%, anteroseptal hypokinesis, mild conc LVH, RVSP 20 mmHg. LVEF 30% on cardiac cath of 02-07-19. - Echo of May 25, 2019 showed LVEF 30-35% - s/p single chamber ICD for SCD prophylaxis in October 2019, functioning normally on interrogation of Jul 2020 - Echo of 12-08-20 showed LVEF 35-40%, mod to severe MR; mod TR; PASP 40-45 mmHg - Echo of 03-08-[address] Brantley showed LVEF 30-35%. Severely dilated RV. LA and RA mod dilated. Mod MR. Mod to severe TR. PASP 39 mmHg Transferred for consideration of CABG and repair of AV fistula and MV by Dr Almaraz to [facility] in September 2020. Not found to be a suitable candidate for any surgery due to continuing methamphetamine abuse Hyperlipidemia, by hx Tobaccoism, educated on smoking cessation (reports no usage in a month or two) Continued methamphetamine use - cessation advised (reports no usage in a month or two) Continued marijuana use - cessation advised (reports no usage in a month or two) H/O noncompliance with medications and f/u Plan: Complex management issue d/t multiple co-morbidities and non-compliance Episode of WCT on 03-10-21 - change to oral Amiodarone Continue to treat decomp systolic CHF with diuretics - continue metolazone and Lasix Continue dig - check dig level in the am ICM- Continue low dose POLA and Coreg (d/t somewhat low BP) Continue Aldactone Hemoptysis probably due to PE - medical services managing Continue ASA d/t known h/o CAD Monitor lab closely - replace electrolytes as indicated Clinical Quality Measures Smoking Cessation Counseling: Counseling-Symptomatic: 3-10 Minutes Discussed Options Including: Group/Indiv Counseling MARGARITO IBANEZ Mar 12, 2021 08:34
--- NOTE | 2021-03-12 09:26 | Progress Note - Cardiology ---
Cardiology SOAP Progress Note Subjective: Short of breath No chest discomfort Gen malaise present No palp or syncope Swelling somewhat better Objective: I&O/Vital Signs 03/11/21 03/12/21 03/12/21 03/12/21 21:37 00:25 01:00 02:52 Temp 37.0 Pulse 93 98 Resp 18 B/P (MAP) 91/74 Pulse Ox 94 95 95 O2 Delivery High Flow N/C High Flow N/C High Flow N/C O2 Flow Rate 3.00 3.00 3.00 03/12/21 03/12/21 03/12/21 03/12/21 04:00 07:13 07:15 08:00 Temp 36.8 36.8 35.6 Pulse 92 92 93 Resp 21 28 B/P (MAP) 95/72 103/74 Pulse Ox 99 97 97 98 O2 Delivery High Flow N/C High Flow N/C High Flow N/C O2 Flow Rate 3.00 3.00 3.00 03/12/21 00:00 Intake Total 1510 ml Output Total 2050 ml Balance -540 ml Weight (Pounds): 225 Weight (Ounces): 15.0 Weight (Calculated Kilograms): 102.924762 Constitutional: AAO x 3, well-developed, well-nourished Respiratory: No accessory muscle use, No respiratory distress; chest expansion is symmetric, chest is bilaterally symmetric, other (diminished lower lobes bilat; prolonged exp phase) Cardiovascular: tachycardia, systolic murmur Gastrointestional: No tender; round Extremities: significant edema (bilat pitting edema of the calves and feet bilat (improving)) Neurologic/Psychiatric: oriented x 3, other (moves all limbs equally) Skin: other (dry, flaky skin) Results/Procedures: Labs Laboratory Tests 03/12/21 05:49: White Blood Count 15.9H, Red Blood Count 4.11L, Hemoglobin 11.5L, Hematocrit 37L , Mean Corpuscular Volume 90, Mean Corpuscular Hemoglobin 28, Mean Corpuscular Hemoglobin Concent 31L, Red Cell Distribution Width 20.2H, Platelet Count 229, Mean Platelet Volume 10.4, Sodium Level 130L, Potassium Level 3.6, Chloride Level 94L, Carbon Dioxide Level 24, Anion Gap 12, Blood Urea Nitrogen 20H, Creatinine 0.73, Estimat Glomerular Filtration Rate 114, BUN/Creatinine Ratio 27, Glucose Level 129H, Calcium Level 9.0, Magnesium Level 1.7 Laboratory Tests 03/10/21 22:20 03/11/21 05:30 03/12/21 05:49 A/P: Assessment: Episode of NSVT on 03/10/21 - asymptomatic. ICD interrogated on 03/11/21 and found to be functioning normally - amiodarone added to regimen on 03/10/21 Acute on chronic systolic CHF - improving A fib/flutter with RVR - rate improved Hemoptysis, likely due to pulm embolism - medical services managing Recurrent Pulmonary Emboli - Persistent left upper lobe pulmonary embolism with new left lower lobe s egmental pulmonary emboli. No right-sided emboli are seen. There is no evidence of right heart strain. Per CTA of the chest on 03-09-21 - No evidence of DVT on venous doppler of 03-10-21 CAD: - H/o [place] in late Jan 2019 (see below) - Card cath on 02/01/19: Coronary artery disease consisting of complete ostial occlusion of the left anterior descending artery to which successful p ercutaneous coronary intervention was carried out. Following deployment of Alpine Xience 2.75 x 18 mm stent, there is no significant residual stenosis. A large obtuse marginal of the left circumflex shows 80% bifurcation stenosis in its distal portion. Right coronary artery is dominant and has mild disease. Elevated left ventricular end-diastolic pressure. Well preserved global left ventricular systolic function with ejection fraction approximately 55%. - Repeat intervention on 02-07-[address] Almaraz: balloon angioplasty to the ostium and proximal LAD with slow flow in the LAD with reestablishment of flow and good results. Mild disease in the circumflex and right coronary artery Dilated left ventricle with anterior wall hypokinesia to akinesia, estimated ejection fraction 30% - Last cardiac cath by Dr Almaraz on 09/17/20: Moderate to severe proximal and mid LAD, severe mid vessel disease of an OM, distal LAD fistula to the venous system / RV, dilated left ventricle with diffuse left ventricular hypokinesia ejection fraction 30% Ischemic cardiomyopathy. - Echo on 02/04/19: LVEF 40-45%, anteroseptal hypokinesis, mild conc LVH, RVSP 20 mmHg. LVEF 30% on cardiac cath of 8-28-19. - Echo of May 25, 2019 showed LVEF 30-35% - s/p single chamber ICD for SCD prophylaxis in October 2019, functioning normally on interrogation of 03/11/21 - Echo of 12-08-20 showed LVEF 35-40%, mod to severe MR; mod TR; PASP 40-45 mmHg - Echo of 03-08-[address] Brantley showed LVEF 30-35%. Severely dilated RV. LA and RA mod dilated. Mod MR. Mod to severe TR. PASP 39 mmHg Transferred for consideration of CABG and repair of AV fistula and MV by Dr Almaraz to [facility] in September 2020. Not found to be a suitable candidate for any surgery due to continuing methamphetamine abuse Hyperlipidemia, by hx Tobaccoism, educated on smoking cessation (reports no usage in a month or two) Continued methamphetamine use - cessation advised (reports no usage in a month or two) Continued marijuana use - cessation advised (reports no usage in a month or two) H/o noncompliance with medications and f/u Plan: Complex management issue d/t multiple co-morbidities and non-compliance Amiodarone added after episode of WCT on 03-10-21 - change to oral Amiodarone Continue to treat decomp systolic CHF with diuretics - continue metolazone and Lasix Continue dig - check dig level in the am ICM- Continue low dose POLA and Coreg (d/t somewhat low BP). Increase Coreg Continue Aldactone, but may need to stop if Na keeps falling Continue ASA d/t known h/o CAD Monitor lab closely - replace electrolytes as indicated Clinical Quality Measures Smoking Cessation Counseling: Counseling-Symptomatic: 3-10 Minutes Discussed Options Including: Group/Indiv Counseling ALETHEA ALMAZAN MD FACP FAC CCDS Mar 12, 2021 09:26
[2021-03-12] MEDS: AMIODARONE 200 MG (CORDARONE) TAB PO SCH ×2 (12:53→20:30)
--- NOTE | 2021-03-12 16:15 | Progress Note ---
Subjective Subjective/Events-last exam Patient states some improvement. Up walking around room with some shortness of breath. Tolerating PO diet. States that he has some episodes of palpitations but less then the previous night Review of Systems Pulmonary: Dyspnea, Cough Cardiovascular: Palpitations; No: Chest Pain Gastrointestinal: No: Nausea, Vomiting, Abdominal Pain, Diarrhea, Constipation Neurological: Weakness, Incoordination Objective Exam Last Set of Vital Signs Vital Signs Date Time Temp Pulse Resp B/P (MAP) Pulse Ox O2 Delivery O2 Flow Rate FiO2 03/12/21 13:00 90 03/12/21 12:00 35.7 30 91/65 98 High Flow N/C 3.00 Capillary Refill : Less Than 3 Seconds I&O Intake and Output 03/11/21 23:59 Intake Total 1610 ml Output Total 2650 ml Balance -1040 ml Intake Oral 1610 ml Output Urine Total 2650 ml # Voids 2 # Bowel Movements 1 General: Alert, Oriented X3, Cooperative, Mild Distress Lungs: Clear to Auscultation, Normal Air Movement Heart: Regular Rate, No Murmurs Abdomen: Normal Bowel Sounds, Soft, No Tenderness, No Masses Extremities: Other (3+ pitting edema bilateral LE) Neuro: Normal Speech Results/Procedures Lab Laboratory Tests 03/12/21 05:49: White Blood Count 15.9H, Red Blood Count 4.11L, Hemoglobin 11.5L, Hematocrit 37L , Mean Corpuscular Volume 90, Mean Corpuscular Hemoglobin 28, Mean Corpuscular Hemoglobin Concent 31L, Red Cell Distribution Width 20.2H, Platelet Count 229, Mean Platelet Volume 10.4, Sodium Level 130L, Potassium Level 3.6, Chloride Level 94L, Carbon Dioxide Level 24, Anion Gap 12, Blood Urea Nitrogen 20H, Crea tinine 0.73, Estimat Glomerular Filtration Rate 114, BUN/Creatinine Ratio 27, Glucose Level 129H, Calcium Level 9.0, Magnesium Level 1.7 Assessment/Plan Assessment/Plan (1) Acute on chronic combined systolic and diastolic congestive heart failure Status: Acute Assessment & Plan: 03/09: Cardiology consulted and managing, appreciate recommendations, continues to have significant LE edema 03/10: Continue Lasix, monitor renal function and potassium 03/11: Continue with gentle diuresis 03/12: LE with some improvement, continue Lasix, Daily BMP (2) Wide-complex tachycardia Status: Acute Assessment & Plan: 03/11: Started on Amiodarone today by Cardiology (3) Ischemic cardiomyopathy Status: Chronic (4) Pulmonary embolism Status: Acute Assessment & Plan: 03/09: Continue Eliquis Qualifiers: Qualified Codes: I27.82 - Chronic pulmonary embolism (5) Mitral regurgitation Status: Chronic Assessment & Plan: 03/09: at this time patient not a surgical candidate Qualifiers: Qualified Codes: I34.0 - Nonrheumatic mitral (valve) insufficiency (6) HLD (hyperlipidemia) Status: Chronic Qualifiers: Qualified Codes: E78.2 - Mixed hyperlipidemia (7) Noncompliance with medication regimen Status: Chronic (8) Tobacco abuse Status: Chronic (9) Methamphetamine abuse Status: Chronic (10) DVT prophylaxis Status: Acute Assessment & Plan: - Patient with acute PE, continue OAC Clinical Quality Measures Smoking Cessation Counseling: Counseling-Symptomatic: 3-10 Minutes Discussed Options Including: Group/Indiv Counseling TANIYA HERRING MD Mar 12, 2021 16:15
[2021-03-13] MEDS: METOLAZONE 2.5 MG (ZAROXOLYN) TAB PO SCH (04:54)
[2021-03-13] MEDS: ACETAMINOPHEN 325 MG TABLET PO PRN ×2 (04:55→15:05)
[2021-03-13 05:16] LABS: HEMATOCRIT 36 % (40-54); HEMOGLOBIN 11.3 g/dL (13.3-17.7); MEAN CORPUSCULAR HEMOGLOBIN 28 pg (25-34); MEAN CORPUSCULAR HGB CONC 31 g/dL (32-36); MEAN CORPUSCULAR VOLUME 91 fL (80-99); MEAN PLATELET VOLUME 10.6 fL (9.0-12.2); PLATELET COUNT 247 10^3/uL (130-400); WHITE BLOOD COUNT 14.8 10^3/uL (4.3-11.0)
[2021-03-13 05:41] LABS: ALBUMIN 2.4 GM/DL (3.2-4.5); POTASSIUM 3.8 MMOL/L (3.6-5.0)
[2021-03-13 05:43] LABS: TOTAL PROTEIN 5.8 GM/DL (6.4-8.2)
[2021-03-13 05:45] LABS: BILIRUBIN,TOTAL 1.6 MG/DL (0.1-1.0)
[2021-03-13 05:47] LABS: CREATININE SERUM 0.75 MG/DL (0.60-1.30)
[2021-03-13 05:50] LABS: MAGNESIUM 1.7 MG/DL (1.6-2.4)
[2021-03-13] MEDS: CATHETER FLUSH 10 ML SYR IV SCH ×3 (06:52→23:46)
[2021-03-13] MEDS: FUROSEMIDE 40 MG/4 ML INJ (LASIX) IVP SCH (06:52)
[2021-03-13] MEDS: KCL 20 MEQ TAB (K-DUR) PO SCH (06:52)
[2021-03-13] MEDS: APIXABAN 5 MG (ELIQUIS) TABLET PO SCH ×2 (07:52→20:27)
[2021-03-13] MEDS: ASPIRIN 81 MG CHEW (CHILDREN'S ASA) PO SCH (07:52)
[2021-03-13] MEDS: DIGOXIN 0.25 MG (LANOXIN) TAB PO SCH (07:52)
[2021-03-13] MEDS: SPIRONOLACTONE 25 MG (ALDACTONE) TAB PO SCH (07:52)
[2021-03-13] MEDS: lisINopril 5 MG (PRINIVIL) TABLET PO SCH (07:53)
[2021-03-13] MEDS: AMIODARONE 200 MG (CORDARONE) TAB PO SCH ×2 (07:53→20:27)
[2021-03-13] MEDS: ROSUVASTATIN 20 MG (CRESTOR) TABLET PO SCH (07:53)
[2021-03-13] MEDS: RT-ALBUTEROL/IPRATROPIUM 3 ML (DUONEB) VIAL INH SCH ×2 (08:44→21:48)
--- NOTE | 2021-03-13 08:57 | Progress Note - Cardiology ---
Cardiology SOAP Progress Note Subjective: Sitting up in bed States the discomfort he was having on his left side is better Reports occ sharp stabbing discomfort on the right side of his chest He feels his SOB is somewhat better Gen weakness Objective: I&O/Vital Signs 03/15/21 03/15/21 03/16/21 03/16/21 22:00 23:00 00:00 00:00 Pulse 87 90 89 Resp 17 26 30 B/P (MAP) 113/82 91/63 92/69 Pulse Ox 91 98 96 O2 Delivery High Flow N/C High Flow N/C High Flow N/C High Flow N/C O2 Flow Rate 5.00 5.00 5.00 5.00 03/16/21 03/16/21 03/16/21 03/16/21 01:00 01:00 02:00 03:00 Pulse 92 92 90 91 Resp 30 21 21 B/P (MAP) 101/71 103/72 106/80 Pulse Ox 95 97 96 O2 Delivery High Flow N/C High Flow N/C High Flow N/C O2 Flow Rate 5.00 5.00 5.00 03/16/21 03/16/21 03/16/21 03/16/21 04:00 04:00 05:00 06:00 Pulse 93 93 91 Resp 28 31 28 B/P (MAP) 90/63 90/66 116/79 Pulse Ox 96 97 97 O2 Delivery High Flow N/C High Flow N/C High Flow N/C High Flow N/C O2 Flow Rate 5.00 5.00 5.00 5.00 03/16/21 03/16/21 03/16/21 03/16/21 06:48 07:00 07:43 07:48 Pulse 84 91 Resp 41 B/P (MAP) 108/80 Pulse Ox 95 96 O2 Delivery High Flow N/C High Flow N/C High Flow N/C O2 Flow Rate 5.00 3.00 3.00 03/16/21 03/16/21 03/16/21 03/16/21 08:00 08:01 08:35 09:00 Temp 36.4 Pulse 93 90 Resp 36 33 B/P (MAP) 91/63 108/77 Pulse Ox 96 97 O2 Delivery High Flow N/C High Flow N/C High Flow N/C O2 Flow Rate 3.00 3.00 3.00 03/16/21 00:00 Intake Total 800 ml Output Total 2175 ml Balance -1375 ml Weight (Pounds): 225 Weight (Ounces): 15.0 Weight (Calculated Kilograms): 102.813721 Constitutional: AAO x 3, well-developed, well-nourished Respiratory: No accessory muscle use, No respiratory distress; chest expansion is symmetric, chest is bilaterally symmetric, other (diminished lower lobes bilat; prolonged exp phase) Cardiovascular: regular rate-rhythm, systolic murmur Gastrointestional: No tender; round Extremities: significant edema (bilat pitting edema of the calves and feet bilat (improving)) Neurologic/Psychiatric: oriented x 3, other (moves all limbs equally) Skin: other (dry, flaky skin) Results/Procedures: Labs Laboratory Tests 03/16/21 05:40: White Blood Count 13.3H, Red Blood Count 4.16L, Hemoglobin 11.6L, Hematocrit 37L , Mean Corpuscular Volume 90, Mean Corpuscular Hemoglobin 28, Mean Corpuscular Hemoglobin Concent 31L, Red Cell Distribution Width 19.9H, Platelet Count 306, Mean Platelet Volume 10.0, Immature Granulocyte % (Auto) 2, Neutrophils (%) (Auto) 75, Lymphocytes (%) (Auto) 12, Monocytes (%) (Auto) 9, Eosinophils (%) (Auto) 1, Basophils (%) (Auto) 1, Neutrophils # (Auto) 10.0H, Lymphocytes # (Auto) 1.7, Monocytes # (Auto) 1.3H, Eosinophils # (Auto) 0.1, Basophils # (Auto) 0.1, Immature Granulocyte # (Auto) 0.2H, Sodium Level 131L, Potassium Level 4.5, Chloride Level 97L, Carbon Dioxide Level 27, Anion Gap 7, Blood Urea Nitrogen 13, Creatinine 0.69, Estimat Glomerular Filtration Rate 121, BUN/Creatinine Ratio 19, Glucose Level 97, Calcium Level 8.6, Corrected Calcium 9.9, Phosphorus Level 2.6, Magnesium Level 1.7, Total Bilirubin 1.6H, Aspartate Amino Transf (AST/SGOT) 56H, Alanine Aminotransferase (ALT/SGPT) 38, Alkaline Phosphatase 219H, Total Protein 5.9L, Albumin 2.4L Microbiology 03/13/21 MRSA Screen - Final, Complete MRSA not isolated A/P: Assessment: Episode of NSVT on 03/10/21 - asymptomatic. ICD interrogated on 03/11/21 and found to be functioning normally - amiodarone added to regimen on 03/10/21 Acute on chronic systolic CHF - improving A fib/flutter with RVR - rate improved Hemoptysis, likely due to pulm embolism - medical services managing Recurrent Pulmonary Emboli - Persistent left upper lobe pulmonary embolism with new left lower lobe segmental pulmonary emboli. No right-sided emboli are seen. There is no evidence of right heart strain. Per CTA of the chest on 03-09-21 - No evidence of DVT on venous doppler of 03-10-21 CAD: - H/o [place] in late Jan 2019 (see below) - Card cath on 02/01/19: Coronary artery disease consisting of complete ostial occlusion of the left anterior descending artery to which successful percutaneous coronary intervention was carried out. Following deployment of Alpine Xience 2.75 x 18 mm stent, there is no significant residual stenosis. A large obtuse marginal of the left circumflex shows 80% bifurcation stenosis in its distal portion. Right coronary artery is dominant and has mild disease. Elevated left ventricular end-diastolic pressure. Well preserved global left ventricular systolic function with ejection fraction approximately 55%. - Repeat intervention on 02-07-[address] Almaraz: balloon angioplasty to the ostium and proximal LAD with slow flow in the LAD with reestablishment of flow and good results. Mild disease in the circumflex and right coronary artery Dilated left ventricle with anterior wall hypokinesia to akinesia, estimated ejection fraction 30% - Last cardiac cath by Dr Almaraz on 09/17/20: Moderate to severe proximal and mid LAD, severe mid vessel disease of an OM, distal LAD fistula to the venous system / RV, dilated left ventricle with diffuse left ventricular hypokinesia ejection fraction 30% Ischemic cardiomyopathy. - Echo on 02/04/19: LVEF 40-45%, anteroseptal hypokinesis, mild conc LVH, RVSP 20 mmHg. LVEF 30% on cardiac cath of 02-07-19. - Echo of May 25, 2019 showed LVEF 30-35% - s/p single chamber ICD for SCD prophylaxis in October 2019, functioning normally on interrogation of 03/11/21 - Echo of 12-08-20 showed LVEF 35-40%, mod to severe MR; mod TR; PASP 40-45 mmHg - Echo of 03-08-[address] Brantley showed LVEF 30-35%. Severely dilated RV. LA and RA mod dilated. Mod MR. Mod to severe TR. PASP 39 mmHg Transferred for consideration of CABG and repair of AV fistula and MV by Dr Almaraz to [facility] in September 2020. Not found to be a suitable candidate for any surgery due to continuing methamphetamine abuse Hyperlipidemia, by hx Tobaccoism, educated on smoking cessation (reports no usage in a month or two) Continued methamphetamine use - cessation advised (reports no usage in a month or two) Continued marijuana use - cessation advised (reports no usage in a month or two) H/o noncompliance with medications and f/u Plan: Complex management issue d/t multiple co-morbidities and non-compliance Amiodarone added after episode of WCT on 03-10-21 - continue oral Amiodarone Continue to treat decomp systolic CHF with diuretics - continue metolazone and Lasix Continue dig - check dig level in the am ICM- Continue low dose POLA and continue increased dose of Coreg Continue Aldactone, but may need to stop if Na keeps falling Continue ASA d/t known h/o CAD Monitor lab closely - replace electrolytes as indicated Clinical Quality Measures Smoking Cessation Counseling: Counseling-Symptomatic: 3-10 Minutes Discussed Options Including: Group/Indiv Counseling MARGARITO IBANEZ Mar 13, 2021 08:57
--- NOTE | 2021-03-13 09:40 | Progress Note - Cardiology ---
Cardiology SOAP Progress Note Subjective: Short of breath, but better No cp or palp or syncope Gen malaise Leg swelling improving Objective: I&O/Vital Signs 03/13/21 03/13/21 03/13/21 03/13/21 00:21 01:00 04:00 07:00 Temp 36.3 36.5 Pulse 89 87 89 89 Resp 19 22 B/P (MAP) 99/62 88/69 Pulse Ox 94 100 O2 Delivery High Flow N/C High Flow N/C O2 Flow Rate 3.00 3.00 03/13/21 03/13/21 07:49 08:45 Temp 37.0 Pulse 84 Resp 9 B/P (MAP) 103/78 Pulse Ox 97 96 O2 Delivery High Flow N/C T Piece O2 Flow Rate 3.00 3.00 03/13/21 00:00 Intake Total 889 ml Output Total 2050 ml Balance -1161 ml Weight (Pounds): 225 Weight (Ounces): 15.0 Weight (Calculated Kilograms): 102.230360 Constitutional: AAO x 3, well-developed, well-nourished Respiratory: No accessory muscle use, No respiratory distress; chest expansion is symmetric, chest is bilaterally symmetric, other (diminished lower lobes bilat; prolonged exp phase) Cardiovascular: regular rate-rhythm, systolic murmur Gastrointestional: No tender; round Extremities: significant edema (bilat pitting edema of the calves and feet mavis at (improving)) Neurologic/Psychiatric: oriented x 3, other (moves all limbs equally) Skin: other (dry, flaky skin) Results/Procedures: Labs Laboratory Tests 03/13/21 04:42: White Blood Count 14.8H, Red Blood Count 3.99L, Hemoglobin 11.3L, Hematocrit 36L , Mean Corpuscular Volume 91, Mean Corpuscular Hemoglobin 28, Mean Corpuscular Hemoglobin Concent 31L, Red Cell Distribution Width 19.9H, Platelet Count 247, Mean Platelet Volume 10.6, Sodium Level 132L, Potassium Level 3.8, Chloride Level 91L, Carbon Dioxide Level 28, Anion Gap 13, Blood Urea Nitrogen 19H, Creatinine 0.75, Estimat Glomerular Filtration Rate 110, BUN/Creatinine Ratio 25, Glucose Level 108H, Calcium Level 9.0, Corrected Calcium 10.3H, Magnesium Level 1.7, Total Bilirubin 1.6H, Aspartate Amino Transf (AST/SGOT) 55H, Alanine Aminotransferase (ALT/SGPT) 29, Alkaline Phosphatase 158H, Total Protein 5.8L, Albumin 2.4L, Thyroid Stimulating Hormone (TSH) 2.81, Digoxin Level 0.79L Laboratory Tests 03/12/21 05:49 03/13/21 04:42 A/P: Assessment: Episode of NSVT on 03/10/21 - asymptomatic. ICD interrogated on 03/11/21 and found to be functioning normally - amiodarone added to regimen on 03/10/21 Acute on chronic systolic CHF - improving A fib/flutter with RVR - rate improved Hemoptysis, likely due to pulm embolism - medical services managing Recurrent Pulmonary Emboli - Persistent left upper lobe pulmonary embolism with new left lower lobe segmental pulmonary emboli. No right-sided emboli are seen. There is no evidence of right heart strain. Per CTA of the chest on 03-09-21 - No evidence of DVT on venous doppler of 03-10-21 CAD: - H/o [place] in late Jan 2019 (see below) - Card cath on 02/01/19: Coronary artery disease consisting of complete ostial occlusion of the left anterior descending artery to which successful percutaneous coronary intervention was carried out. Following deployment of Alpine Xience 2.75 x 18 mm stent, there is no significant residual stenosis. A large obtuse marginal of the left circumflex shows 80% bifurcation stenosis in its distal portion. Right coronary artery is dominant and has mild disease. Elevated left ventricular end-diastolic pressure. Well preserved global left ventricular systolic function with ejection fraction approximately 55%. - Repeat intervention on 02-07-[address] Almaraz: balloon angioplasty to the ostium and proximal LAD with slow flow in the LAD with reestablishment of flow and good results. Mild disease in the circumflex and right coronary artery Dilated left ventricle with anterior wall hypokinesia to akinesia, estimated ejection fraction 30% - Last cardiac cath by Dr Almaraz on 09/17/20: Moderate to severe proximal and mid LAD, severe mid vessel disease of an OM, distal LAD fistula to the venous system / RV, dilated left ventricle with diffuse left ventricular hypokinesia ejection fraction 30% Ischemic cardiomyopathy. - Echo on 02/04/19: LVEF 40-45%, anteroseptal hypokinesis, mild conc LVH, RVSP 20 mmHg. LVEF 30% on cardiac cath of 02-07-19. - Echo of May 25, 2019 showed LVEF 30-35% - s/p single chamber ICD for SCD prophylaxis in October 2019, functioning normally on interrogation of 03/11/21 - Echo of 12-08-20 showed LVEF 35-40%, mod to severe MR; mod TR; PASP 40-45 mmHg - Echo of 03-08-[address] Brantley showed LVEF 30-35%. Severely dilated RV. LA and RA mod dilated. Mod MR. Mod to severe TR. PASP 39 mmHg Transferred for consideration of CABG and repair of AV fistula and MV by Dr Almaraz to [facility] in September 2020. Not found to be a suitable candidate for any surgery due to continuing methamphetamine abuse Hyperlipidemia, by hx Tobaccoism, educated on smoking cessation (reports no usage in a month or two) Continued methamphetamine use - cessation advised (reports no usage in a month or two) Continued marijuana use - cessation advised (reports no usage in a month or two) H/o noncompliance with medications and f/u Plan: Complex management issue d/t multiple co-morbidities and non-compliance Amiodarone added after episode of WCT on 03-10-21 - continue oral Amiodarone Continue to treat decomp systolic CHF with diuretics - continue metolazone and Lasix Continue dig - check dig level in the am ICM- Continue low dose POLA and continue increased dose of Coreg Continue Aldactone, but may need to stop if Na keeps falling Continue ASA d/t known h/o CAD Monitor lab closely - replace electrolytes as indicated Clinical Quality Measures Smoking Cessation Counseling: Counseling-Symptomatic: 3-10 Minutes Discussed Options Including: Group/Indiv Counseling ALETHEA ALMAZAN MD FACP [facility] CCDS Mar 13, 2021 09:40
--- NOTE | 2021-03-13 11:00 | Progress Note - Hospitalist ---
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 He appears to be more declined every time I admit him. He appears 20 years older than stated age. He reports that he really needs the valvular heart surgery but it appears he is not a surgical candidate due to the poor reserve he has and other psychosocial issues that make rehabilitation a minimal success. Dr. Brantley has been consulted and he remains tachycardic. Subjective/Events-last exam Patient about the same Blood pressure 79/46 Moving to ICU for hypotension Patient has a very poor prognosis Pressor therapy will be initiated PICC line ordered Remains full code he really is a hospice candidate Review of Systems General: Fatigue, Malaise Pulmonary: Dyspnea Objective Exam Vital Signs Vital Signs Date Time Temp Pulse Resp B/P (MAP) Pulse Ox O2 Delivery O2 Flow Rate FiO2 03/14/21 04:00 80 17 105/69 98 High Flow N/C 3.00 03/14/21 03:23 35.9 Capillary Refill : Less Than 3 Seconds General Appearance: No Apparent Distress, WD/WN, Anxious, Chronically ill, Other (Shah and ashen) Respiratory: No Accessory Muscle Use, No Respiratory Distress, Decreased Breath Sounds Cardiovascular: Regular Rate, Rhythm Neurologic/Psychiatric: Alert, Oriented x3 Results/Procedures Lab Laboratory Tests 03/14/21 03:27 Patient resulted labs reviewed. Assessment/Plan Assessment and Plan Assess & Plan/Chief Complaint Assessment: Acute on chronic congestive heart failure systolic type Hypotension requiring ICU transfer on 03/13/2021 Valvular heart disease Wide-complex tachycardia digoxin started Poor prognosis Plan: ICU Pressor therapy PICC line Diagnosis/Problems Diagnosis/Problems (1) Acute exacerbation of CHF (congestive heart failure) Status: Acute Qualifiers: Heart failure type: combined systolic and diastolic Qualified Codes: I50.43 - Acute on chronic combined systolic (congestive) and diastolic (congestive) heart failure (2) Leg swelling Status: Acute Clinical Quality Measures Smoking Cessation Counseling: Counseling-Symptomatic: 3-10 Minutes Discussed Options Including: Group/Indiv Counseling SOFIA HANKINS DO Mar 13, 2021 11:00
[2021-03-13] MEDS: NS IV 1000 ML 1,000 ML IV SCH (11:54)
--- NOTE | 2021-03-13 11:56 | Physical Therapy Evaluation ---
PT Evaluation-General Medical Diagnosis Admission Date Mar 07, 2021 at 15:36 Medical Diagnosis: CHF Onset Date: Mar 07, 2021 Therapy Diagnosis Therapy Diagnosis: debility/weakness Height/Weight Height (Feet): 6 Height (Inches): 2.00 Weight (Pounds): 225 Weight (Ounces): 15.0 Precautions Precautions/Isolations: Fall Prevention, Standard Precautions Referral Physician: Christopher Reason for Referral: Evaluation/Treatment Medical History Pertinent Medical History: CAD, IA Additional Medical History defibrillator/covid/O2 dependent Current History ER secondary to cough, SOA, CP Reviewed History: Yes Social History Home: Apartment Current Living Status: Friend Entry Into Home: Stairs With Railing PT Steps Into Home: 5 Prior Prior Level of Function SCALE: Activities may be completed with or without assistive devices. 2-Vretvhgpjn-kszzaho completes the activity by him/herself with no assistance from a helper. 5-Set-up or Clean-up Assistance-helper sets up or cleans up; patient completes activity. [place] assists only prior to or following the activity. 4-Supervision or Touching Assistance-helper provides verbal cues and/or touching/steadying and/or contact guard assistance as patient completes activity. Assistance may be provided throughout the activity or intermittently. 3-Partial/Moderate Assistance-helper does LESS THAN HALF the effort. [place] lifts, holds or supports trunk or limbs, but provides less than half the effort. 2-Substantial/Maximal Assistance-helper does MORE THAN HALF the effort. [place] lifts or holds trunk or limbs and provides more than half the effort. 2-Qraqhvvhn-yfvrql does ALL the effort. Patient does none of the effort to complete the activity. Or, the assistance of 2 or more helpers is required for the patient to complete the activity. If activity was not attempted, code reason: 7-Patient Refused. 9-Not Applicable-not attempted and the patient did not perform the activity before the current illness, exacerbation or injury. 10-Not Attempted due to Environmental Limitations-(lack of equipment, weather restraints, etc.). 88-Not Attempted due to Medical Conditions or Safety Concerns. Bed Mobility: 6 Transfers (B,C,W/C): 6 Gait: 6 Stairs: 6 Indoor Mobility (Ambulation): Independent Stairs: Independent Prior Devices Use: None PT Evaluation-Current Subjective Patient c/o bilateral LE edema Objective Patient Orientation: Normal For Age Attachments: Oxygen (3L) ROM/Strength ROM Lower Extremities bilateral LE WFL Strength Lower Extremities 4/5 grossly bilateral LE Integumentary/Posture Bowel Incontinence: No Bladder Incontinence: No Posture WFL Neuromuscular (Tone, Coordination, Reflexes) slightly diminished coordination Sensory Vision: Functional Hearing: Functional Transfers Roll Left to Right (QC): 4 Sit to Lying (QC): 4 Lying to Sitting/Side of Bed(Q: 4 Sit to Stand (QC): 4 Chair/Yky-bq-Ryldq Xfer(QC): 4 SBA with all for safety Gait Does the Patient Walk?: Yes Mode of Locomotion: Walk Anticipated Mode of Locomotion: Walk Walk 10 feet (QC): 4 Walk 50 ft with 2 Turns(QC): 88 Walk 150 ft (QC): 88 Distance: 15' Gait Assistive Device: None Comments/Gait Description slightly unstable with self correct/will utilize FWW for stability Balance Sitting Static: Normal Sitting Dynamic: Normal Standing Static: Fair Standing Dynamic: Fair Assessment/Needs 51 y.o. male, will benefit from skilled PT to address functional strength and mobility to improve current LOF. Rehab Potential: Fair PT [facility] Goals Battery Vent Plug Inserter Goals PT [facility] Goals Time Frame: Mar 21, 2021 Roll Left & Right (QC): 6 Sit to Lying (QC): 6 Lying-Sitting on Side/Bed(QC): 6 Sit to Stand (QC): 6 Chair/Mxb-tg-Qqaxj Xfer(QC): 6 Toilet Transfer (QC): 6 Walk 10 feet (QC): 6 Walk 50ft with 2 Turns (QC): 6 Walk 150 ft (QC): 6 PT Plan Problem List Problem List: Activity Tolerance, Functional Strength, Safety, Balance Treatment/Plan Treatment Plan: Continue Plan of Care Treatment Plan: Education, Functional Activity Concepcion, Functional Strength, Gait, Safety, Therapeutic Exercise, Transfers Treatment Duration: Mar 21, 2021 Frequency: 6 times per week Estimated Hrs Per Day: .25 hour per day Patient and/or Family Agrees t: Yes Time/GCodes Time In: 1125 Time Out: 1136 Total Billed Treatment Time: 11 Total Billed Treatment 1 visit EVModC 11 min WILL TROY PT Mar 13, 2021 11:56
[2021-03-13] MEDS ORDERED: NS (IVPB) 250 ML IV ONE (12:30)
--- NOTE | 2021-03-13 12:46 | Tele-ICU Consult ---
History of Present Illness History of Present Illness Date Seen by Provider: Mar 13, 2021 Time Seen by Provider: 12:42 History of Present Illness He is admitted with the acute on chronic congestive heart failure and started on aggressive diuretic therapy. He has atrial fibrillation for which he is started on amiodarone as well today. He started having low blood pressure and it is gone down as low as 60. Patient is sitting in the chair but not there symptomatic. He feels however weak. There is diuretics have been on hold and getting IV fluids asked 60 mL/h. I have asked the RN to give a fluid bolus with normal saline to 50 cc x 1. If it does not improve will consider starting on Levophed. Meanwhile we will try to get a midline IV catheter as he has a poor 4l IVs as well as he may need Levophed. Allergies and Home Medications Allergies Coded Allergies: No Known Drug Allergies (Unverified , 05/29/11) Home Medications Albuterol Sulfate 1 Puff Puff, 2 PUFF IH Q4H PRN for SHORTNESS OF BREATH, (Reported) Apixaban 5 Mg Tablet, 5 MG PO BID, (Reported) DIRECTIONS ON THE BOTTLE ARE " 2 TABS DAILY X 7 DAYS THEN 1 TAB DAILY" AND PATIENT HAS BEEN TAKING IT PER THE DIRECTIONS Aspirin 81 Mg Tablet.dr, 81 MG PO DAILY, (Reported) Furosemide 40 Mg Tablet, 40 MG PO DAILY, (Reported) Lisinopril 5 Mg Tablet, 5 MG PO DAILY, (Reported) Metoprolol Succinate 25 Mg Tab.er.24h, 25 MG PO DAILY, (Reported) Prasugrel HCl 10 Mg Tablet, 10 MG PO DAILY, (Reported) Rosuvastatin Calcium 20 Mg Tablet, 20 MG PO DAILY, (Reported) Past Medical/Social/Family Hx Patient Social History Marrital Status: single Employed/Student: unemployed Tobacco Use?: No Smoking Status: Former Smoker Smokeless Tobacco Frequency: Current Everyday User, Heavy User Use of E-Cig and/or Vaping dev: No Substance use?: No FORMER METH Alcohol Use?: No Pt stated abuse/neglect: No Immunizations Up To Date Influenza Vaccine Up-to-Date: No; Not Current Tetanus Booster (TDap): Unknown Current Status Advance Directives: No Communicates: Verbally Primary Language: Monegasque Preferred Spoken Language: Monegasque Is interpretation needed?: No Implanted or Applied Medical D: Heart mechanical device, Stents Past Medical History multiple ME's, coronary stents, cardiomyopathy, systolic HF, valvular heart disease, s/p cardioverter/defibrillator Review of Systems Constitutional: see HPI Other PER ATTENDING PHYSICIAN Sepsis Event Evaluation Height, Weight, BMI Height: 6'2.00" Weight: 225lbs. 15.0oz. 102.768678mr; 28.59 BMI Method:Stated Exam Exam Patient acknowledged, consented, and participated in this virtual visit which was conducted using real time audio/video Vital Signs Date Time Temp Pulse Resp B/P (MAP) Pulse Ox O2 Delivery O2 Flow Rate FiO2 03/13/21 12:00 84 15 74/49 97 High Flow N/C 3.00 03/13/21 11:42 High Flow N/C 3.00 03/13/21 11:30 76 9 84/65 97 High Flow N/C 3.00 03/13/21 08:45 96 T Piece 3.00 03/13/21 08:00 High Flow N/C 3.00 03/13/21 07:49 37.0 84 9 103/78 97 High Flow N/C 3.00 03/13/21 07:00 89 03/13/21 04:00 36.5 89 22 88/69 100 High Flow N/C 3.00 03/13/21 01:00 87 03/13/21 00:21 36.3 89 19 99/62 94 High Flow N/C 3.00 03/12/21 21:27 94 High Flow N/C 2.00 03/12/21 20:28 36.6 87 24 85/61 99 High Flow N/C 3.00 03/12/21 20:00 High Flow N/C 3.00 03/12/21 19:00 90 03/12/21 16:38 36.9 89 10 87/55 98 High Flow N/C 3.00 03/12/21 13:00 90 I & O 03/13/21 07:00 Intake Total 1589 ml Output Total 3800 ml Balance -2211 ml Height & Weight Height: 6'2.00" Weight: 225lbs. 15.0oz. 102.775489yj; 28.59 BMI Method:Stated General Appearance: WD/WN, Anxious, Chronically ill HEENT: PERRL/EOMI, Other (dry oral mucosa) Neck: Full Range of Motion, Normal Inspection, Non Tender Respiratory: Lungs Clear, No Accessory Muscle Use, No Respiratory Distress (mild), Other (tachypnea) Cardiovascular: Regular Rate, Rhythm, Tachycardia Capillary Refill: Less Than 3 Seconds Extremity: Normal Range of Motion, Swelling (3+ pitting edema bilateral lower extremities) Neurologic/Psychiatric: Alert, Oriented x3, No Motor/Sensory Deficits, Other (anxious) Skin: Warm/Dry, Pallor Other comments PER ATTENDING Results Lab Laboratory Tests 03/12/21 05:49 03/13/21 04:42 Meds REVIEWED Radiology CXR REVIEWED. CT CHEST REVIEWED Assessment/Plan Assessment/Plan 1. Hypotension due to aggressive diuresis and volume loss. 2. Acute on chronic systolic congestive heart failure 3. Right-sided pleural effusion probably due to congestive heart failure 4. Ischemic cardiomyopathy status post stenting 5. Atrial fibrillation chronic. 6. Status post AICD and pacer. Recommendations 1. We will hold diuretic therapy for now 2. We will give IV fluid bolus with normal saline to 50 cc followed by 60 cc/h. 3. If his blood pressure does not improve with the above measures we will start on a Levophed. 4. Antiarrhythmics per cardiology service. Critical Care: Critically Ill Patient Time spent with patient (mins): 40 JASMINA DE LA ROSA MD Mar 13, 2021 12:46
[2021-03-13] MEDS ORDERED: NOREPINEPHRINE 8 MG/250 ML 250 ML IV ONE (14:35)
[2021-03-13] MEDS: NOREPINEPHRINE 8 MG/250 ML 250 ML IV SCH (14:37)
[2021-03-13] MEDS ORDERED: morphine INJ 4 MG/ML 1 ML (VIAL/SYRINGE) IVP PRN (16:15)
[2021-03-13] MEDS ORDERED: morphine INJ 4 MG/ML 1 ML (VIAL/SYRINGE) ONE (16:19)
[2021-03-14] MEDS: NOREPINEPHRINE 8 MG/250 ML 250 ML IV SCH ×2 (00:12→13:28)
[2021-03-14 03:36] LABS: BASOPHILS # (AUTO) 0.1 10^3/uL (0.0-0.1); BASOPHILS % (AUTO) 0 % (0-10); EOSINOPHILS # (AUTO) 0.1 10^3/uL (0.0-0.3); EOSINOPHILS % (AUTO) 1 % (0-10); HEMATOCRIT 37 % (40-54); HEMOGLOBIN 11.5 g/dL (13.3-17.7); LYMPHOCYTES # (AUTO) 1.4 10^3/uL (1.0-4.0); LYMPHOCYTES % (AUTO) 10 % (12-44); MEAN CORPUSCULAR HEMOGLOBIN 28 pg (25-34); MEAN CORPUSCULAR HGB CONC 31 g/dL (32-36); MEAN CORPUSCULAR VOLUME 90 fL (80-99); MEAN PLATELET VOLUME 9.9 fL (9.0-12.2); MONOCYTES # (AUTO) 1.5 10^3/uL (0.0-1.0); MONOCYTES % (AUTO) 11 % (0-12); NEUTROPHILS # (AUTO) 10.7 10^3/uL (1.8-7.8); NEUTROPHILS % (AUTO) 77 % (42-75); PLATELET COUNT 247 10^3/uL (130-400); WHITE BLOOD COUNT 13.9 10^3/uL (4.3-11.0)
[2021-03-14 03:43] LABS: ALBUMIN 2.2 GM/DL (3.2-4.5)
[2021-03-14 03:44] LABS: POTASSIUM 3.5 MMOL/L (3.6-5.0)
[2021-03-14 03:45] LABS: CALCIUM 8.4 MG/DL (8.5-10.1)
[2021-03-14 03:46] LABS: TOTAL PROTEIN 5.4 GM/DL (6.4-8.2)
[2021-03-14 03:48] LABS: BILIRUBIN,TOTAL 1.3 MG/DL (0.1-1.0)
[2021-03-14 03:49] LABS: PHOSPHORUS 3.1 MG/DL (2.3-4.7)
[2021-03-14 03:50] LABS: CREATININE SERUM 0.68 MG/DL (0.60-1.30)
[2021-03-14 03:53] LABS: MAGNESIUM 1.5 MG/DL (1.6-2.4)
[2021-03-14] MEDS: NS IV 1000 ML 1,000 ML IV SCH ×2 (04:22→21:08)
[2021-03-14] MEDS: CATHETER FLUSH 10 ML SYR IV SCH ×3 (06:37→22:00)
[2021-03-14] MEDS: MAGNESIUM 1 GM/100 ML IVPB 100 ML IV SCH ×4 (06:37→08:00)
[2021-03-14] MEDS: KCL 20 MEQ TAB (K-DUR) PO SCH (06:38)
[2021-03-14] MEDS: ACETAMINOPHEN 325 MG TABLET PO PRN (06:42)
--- NOTE | 2021-03-14 06:45 | Diagnostic Imaging Report ---
HISTORY: Congestive heart failure TECHNIQUE: Frontal view of the chest COMPARISON: 03/07/2021 FINDINGS: There are patchy airspace opacities in the lungs bilaterally, particularly in the periphery. There is mild cardiomegaly. Left automatic implantable cardiac defibrillator leads appear stable. No pleural effusion or pneumothorax is seen. The right PICC line tip projects over the SVC. IMPRESSION: 1. Stable bilateral airspace opacities, may be due to edema or infection. 2. Stable cardiomegaly. Dictated by: Dictated on workstation # [id number]
[2021-03-14] MEDS: APIXABAN 5 MG (ELIQUIS) TABLET PO SCH ×2 (08:01→21:06)
[2021-03-14] MEDS: POTASSIUM CL 10MEQ/50ML IVPB 50 ML IV SCH ×3 (08:01→10:03)
[2021-03-14] MEDS: ROSUVASTATIN 20 MG (CRESTOR) TABLET PO SCH (08:01)
[2021-03-14] MEDS: AMIODARONE 200 MG (CORDARONE) TAB PO SCH ×2 (08:01→21:06)
[2021-03-14] MEDS: DIGOXIN 0.25 MG (LANOXIN) TAB PO SCH (08:01)
[2021-03-14] MEDS: ASPIRIN 81 MG CHEW (CHILDREN'S ASA) PO SCH (08:01)
--- NOTE | 2021-03-14 08:06 | Progress Note - Hospitalist ---
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 He appears to be more declined every time I admit him. He appears 20 years older than stated age. He reports that he really needs the valvular heart surgery but it appears he is not a surgical candidate due to the poor reserve he has and other psychosocial issues that make rehabilitation a minimal success. Dr. Brantley has been consulted and he remains tachycardic. Subjective/Events-last exam Patient resting quietly Hypertension still present Still on Levophed Decreasing IV fluids to prevent overload Holding Coreg Delirious at times Review of Systems General: Fatigue Pulmonary: Dyspnea Objective Exam Vital Signs Vital Signs Date Time Temp Pulse Resp B/P (MAP) Pulse Ox O2 Delivery O2 Flow Rate FiO2 03/15/21 05:14 36.4 03/15/21 05:00 78 97/68 95 High Flow N/C 3.00 03/15/21 04:00 12 Capillary Refill : Less Than 3 Seconds General Appearance: Chronically ill, Other (Shah and ashen) Respiratory: No Accessory Muscle Use, No Respiratory Distress, Decreased Breath Sounds Cardiovascular: Regular Rate, Rhythm Results/Procedures Lab Laboratory Tests 03/15/21 04:51 Patient resulted labs reviewed. Assessment/Plan Assessment and Plan Assess & Plan/Chief Complaint Assessment: Acute on chronic congestive heart failure systolic type Hypotension requiring ICU transfer on 03/13/2021 Valvular heart disease Wide-complex tachycardia digoxin started Poor prognosis Plan: ICU Pressor therapy PICC line 03/14/2021: Supportive care Poor prognosis Critical Care Critically Ill Patient Diagnosis/Problems Diagnosis/Problems (1) Acute exacerbation of CHF (congestive heart failure) Status: Acute Qualifiers: Heart failure type: combined systolic and diastolic Qualified Codes: I50.43 - Acute on chronic combined systolic (congestive) and diastolic (congestive) heart failure (2) Leg swelling Status: Acute Clinical Quality Measures Smoking Cessation Counseling: Counseling-Symptomatic: 3-10 Minutes Discussed Options Including: Group/Indiv Counseling SOFIA HANKINS DO Mar 14, 2021 08:06
--- NOTE | 2021-03-14 08:21 | Tele-ICU Progress Note ---
Subjective Date Seen by a Provider: Mar 14, 2021 Time Seen by a Provider: 08:14 Subjective/Events-last exam Patient today feeling better. He has been experiencing intermittent chest pains on and off of. Yesterday I have started started him on low-dose morphine which is helping him. Blood pressure is improved. Magnesium and potassium are low which are being supplemented. He is afebrile. Review of Systems ROS PER ATTENDING PHYSICIAN Sepsis Event Evaluation Height, Weight, BMI Height: 6'2.00" Weight: 225lbs. 15.0oz. 102.451315bl; 28.59 BMI Method:Stated Exam Exam Patient acknowledged, consented, and participated in this virtual visit which was conducted using real time audio/video Vital Signs Date Time Temp Pulse Resp B/P (MAP) Pulse Ox O2 Delivery O2 Flow Rate FiO2 03/14/21 08:00 High Flow N/C 3.00 03/14/21 07:45 36.4 03/14/21 07:00 80 03/14/21 06:00 80 15 98/68 100 High Flow N/C 3.00 03/14/21 05:00 79 17 104/77 100 High Flow N/C 3.00 03/14/21 04:00 High Flow N/C 3.00 03/14/21 04:00 80 17 105/69 98 High Flow N/C 3.00 03/14/21 03:23 35.9 03/14/21 03:00 78 26 100/68 96 High Flow N/C 3.00 03/14/21 02:00 77 15 101/74 99 High Flow N/C 3.00 03/14/21 01:00 71 15 102/77 100 High Flow N/C 3.00 03/14/21 01:00 82 03/14/21 00:12 36.4 03/14/21 00:12 103/61 03/14/21 00:00 High Flow N/C 3.00 03/14/21 00:00 75 19 105/71 97 High Flow N/C 3.00 03/13/21 23:00 81 14 117/79 100 High Flow N/C 3.00 03/13/21 22:00 85 16 120/80 100 High Flow N/C 3.00 03/13/21 21:48 96 Nasal Cannula 3.00 03/13/21 21:00 78 34 122/83 99 High Flow N/C 3.00 03/13/21 20:00 High Flow N/C 3.00 03/13/21 20:00 36.2 03/13/21 20:00 81 24 119/80 100 High Flow N/C 3.00 03/13/21 19:00 82 23 120/79 100 High Flow N/C 3.00 03/13/21 19:00 83 03/13/21 18:00 82 31 96/68 100 High Flow N/C 3.00 03/13/21 17:00 85 20 96/68 100 High Flow N/C 3.00 03/13/21 16:00 83 27 100/81 100 High Flow N/C 3.00 03/13/21 15:37 36.5 03/13/21 15:07 High Flow N/C 3.00 03/13/21 15:00 80 24 98/37 97 High Flow N/C 3.00 03/13/21 14:37 79 71/49 03/13/21 14:00 73 28 70/57 99 High Flow N/C 3.00 03/13/21 13:00 79 03/13/21 13:00 75 12 71/49 100 High Flow N/C 3.00 03/13/21 12:00 84 15 74/49 97 High Flow N/C 3.00 03/13/21 11:42 High Flow N/C 3.00 03/13/21 11:30 76 9 84/65 97 High Flow N/C 3.00 03/13/21 08:45 96 T Piece 3.00 I & O 03/14/21 07:00 Intake Total 1130 ml Output Total 4575 ml Balance -3445 ml Height & Weight Height: 6'2.00" Weight: 225lbs. 15.0oz. 102.242008qy; 28.59 BMI Method:Stated General Appearance: No Apparent Distress, WD/WN, Anxious, Chronically ill, Other (Shah and ashen) HEENT: PERRL/EOMI, Other (dry oral mucosa) Neck: Full Range of Motion, Normal Inspection, Non Tender Respiratory: No Accessory Muscle Use, No Respiratory Distress, Decreased Breath Sounds Cardiovascular: Regular Rate, Rhythm Capillary Refill: Less Than 3 Seconds Extremity: Normal Range of Motion, Swelling (3+ pitting edema bilateral lower extremities) Neurologic/Psychiatric: Alert, Oriented x3 Skin: Warm/Dry, Pallor Other comments PE PER ATTENDING PHYSICIAN Results Lab Laboratory Tests 03/13/21 04:42 03/14/21 03:27 Meds reviewed Radiology cxr reviewed. mild chf with cardiomegaly Assessment/Plan Assessment/Plan 1. Hypotension due to aggressive diuresis and volume loss improving 2. Acute on chronic systolic congestive heart failure 3. Right-sided pleural effusion probably due to congestive heart failure 4. Ischemic cardiomyopathy status post stenting 5. Atrial fibrillation chronic. 6. Status post AICD and pacer. 7. chest pain due to ?ischemia Recommendations 1. We will hold diuretic therapy for now 2. ivf to kvo and monitor BP 3. wean off levophed 4. Antiarrhythmics per cardiology service. 5. Morphine iv prn JASMINA DE LA ROSA MD Mar 14, 2021 08:21
--- NOTE | 2021-03-14 08:45 | Physical Therapy Progress Note ---
Therapy Progress Note Patient refused exercise and OOB activity on this date. PT will attempt on Tuesday. 1 ref ([id number]) WILL TROY PT Mar 14, 2021 08:45
[2021-03-14] MEDS: RT-ALBUTEROL/IPRATROPIUM 3 ML (DUONEB) VIAL INH SCH ×2 (08:50→21:04)
--- NOTE | 2021-03-14 14:02 | Progress Note - Cardiology ---
Cardiology SOAP Progress Note Subjective: No cp or palp or syncope No shortness of breath at rest Swelling has improved Gen weakness and malaise present Objective: I&O/Vital Signs 03/14/21 03/14/21 03/14/21 03/14/21 03:00 03:23 04:00 04:00 Temp 35.9 Pulse 78 80 Resp 26 17 B/P (MAP) 100/68 105/69 Pulse Ox 96 98 O2 Delivery High Flow N/C High Flow N/C High Flow N/C O2 Flow Rate 3.00 3.00 3.00 03/14/21 03/14/21 03/14/21 03/14/21 05:00 06:00 07:00 07:00 Pulse 79 80 80 80 Resp 17 15 20 B/P (MAP) 104/77 98/68 97/73 Pulse Ox 100 100 99 O2 Delivery High Flow N/C High Flow N/C High Flow N/C O2 Flow Rate 3.00 3.00 3.00 03/14/21 03/14/21 03/14/21 03/14/21 07:45 08:00 08:00 08:50 Temp 36.4 Pulse 75 Resp 24 B/P (MAP) 107/74 Pulse Ox 99 96 O2 Delivery High Flow N/C High Flow N/C Nasal Cannula O2 Flow Rate 3.00 3.00 3.00 03/14/21 03/14/21 03/14/21 03/14/21 09:00 10:00 11:00 11:30 Temp 36.4 Pulse 72 80 84 Resp 15 31 13 B/P (MAP) 107/78 114/71 104/75 Pulse Ox 99 94 98 O2 Delivery High Flow N/C High Flow N/C High Flow N/C O2 Flow Rate 3.00 3.00 3.00 03/14/21 03/14/21 03/14/21 03/14/21 12:00 12:00 13:00 13:28 Pulse 85 80 Resp 19 B/P (MAP) 113/81 88/63 Pulse Ox 99 O2 Delivery High Flow N/C High Flow N/C O2 Flow Rate 3.00 3.00 03/14/21 00:00 Intake Total 890 ml Output Total 3625 ml Balance -2735 ml Weight (Pounds): 225 Weight (Ounces): 15.0 Weight (Calculated Kilograms): 102.820424 Constitutional: AAO x 3, well-developed, well-nourished Respiratory: No accessory muscle use, No respiratory distress; chest expansion is symmetric, chest is bilaterally symmetric, other (diminished lower lobes bilat; prolonged exp phase) Cardiovascular: regular rate-rhythm, systolic murmur Gastrointestional: No tender; round Extremities: significant edema (bilat pitting edema of the calves and feet bilat (improving)) Neurologic/Psychiatric: oriented x 3, other (moves all limbs equally) Skin: other (dry, flaky skin) Results/Procedures: Labs Laboratory Tests 03/14/21 03:27: White Blood Count 13.9H, Red Blood Count 4.05L, Hemoglobin 11.5L, Hematocrit 37L , Mean Corpuscular Volume 90, Mean Corpuscular Hemoglobin 28, Mean Corpuscular Hemoglobin Concent 31L, Red Cell Distribution Width 19.7H, Platelet Count 247, Mean Platelet Volume 9.9, Immature Granulocyte % (Auto) 1, Neutrophils (%) (Auto) 77H, Lymphocytes (%) (Auto) 10L, Monocytes (%) (Auto) 11, Eosinophils (%) (Auto) 1, Basophils (%) (Auto) 0, Neutrophils # (Auto) 10.7H, Lymphocytes # (Auto) 1.4, Monocytes # (Auto) 1.5H, Eosinophils # (Auto) 0.1, Basophils # (Auto) 0.1, Immature Granulocyte # (Auto) 0.1, Sodium Level 132L, Potassium Level 3.5L, Chloride Level 92L, Carbon Dioxide Level 30, Anion Gap 10, Blood Urea Nitrogen 17, Creatinine 0.68, Estimat Glomerular Filtration Rate 123, BUN/Creatinine Ratio 25, Glucose Level 174H, Calcium Level 8.4L, Corrected Calcium 9.8, Phosphorus Level 3.1, Magnesium Level 1.5L, Total Bilirubin 1.3H, Aspartate Amino Transf (AST/SGOT) 51H, Alanine Aminotransferase (ALT/SGPT) 33, Alkaline Phosphatase 164H, Troponin I < 0.028, Total Protein 5.4L, Albumin 2.2L, Digoxin Level 0.71L Microbiology 03/13/21 MRSA Screen - Final, Complete MRSA not isolated Laboratory Tests 03/13/21 04:42 03/14/21 03:27 A/P: Assessment: Hypotension - probably due to vol depletion from aggressive diuresis - low cardiac output due to low EF contributing Episode of NSVT on 03/10/21 - asymptomatic. ICD interrogated on 03/11/21 and found to be functioning normally - amiodarone added to regimen on 03/10/21 Acute on chronic systolic CHF - improving A fib/flutter with RVR - rate improved Hemoptysis, likely due to pulm embolism - medical services managing Recurrent Pulmonary Emboli - Persistent left upper lobe pulmonary embolism with new left lower lobe segmental pulmonary emboli. No right-sided emboli are seen. There is no evidence of right heart strain. Per CTA of the chest on 03-09-21 - No evidence of DVT on venous doppler of 03-10-21 CAD: - H/o [place] in late Jan 2019 (see below) - Card cath on 02/01/19: Coronary artery disease consisting of complete ostial occlusion of the left anterior descending artery to which successful percutaneous coronary intervention was carried out. Following deployment of Alpine Xience 2.75 x 18 mm stent, there is no significant residual stenosis. A large obtuse marginal of the left circumflex shows 80% bifurcation stenosis in its distal portion. Right coronary artery is dominant and has mild disease. Elevated left ventricular end-diastolic pressure. Well preserved global left ventricular systolic function with ejection fraction approximately 55%. - Repeat intervention on 02-07-[address] Almaraz: balloon angioplasty to the ostium and proximal LAD with slow flow in the LAD with reestablishment of flow and good results. Mild disease in the circumflex and right coronary artery Dilated left ventricle with anterior wall hypokinesia to akinesia, estimated ejection fraction 30% - Last cardiac cath by Dr Almaraz on 09/17/20: Moderate to severe proximal and mid LAD, severe mid vessel disease of an OM, distal LAD fistula to the venous system / RV, dilated left ventricle with diffuse left ventricular hypokinesia ejection fraction 30% Ischemic cardiomyopathy. - Echo on 02/04/19: LVEF 40-45%, anteroseptal hypokinesis, mild conc LVH, RVSP 20 mmHg. LVEF 30% on cardiac cath of 02-07-19. - Echo of May 25, 2019 showed LVEF 30-35% - s/p single chamber ICD for SCD prophylaxis in October 2019, functioning normally on interrogation of 03/11/21 - Echo of 12-08-20 showed LVEF 35-40%, mod to severe MR; mod TR; PASP 40-45 mmHg - Echo of 03-08-[address] Brantley showed LVEF 30-35%. Severely dilated RV. LA and RA mod dilated. Mod MR. Mod to severe TR. PASP 39 mmHg Transferred for consideration of CABG and repair of AV fistula and MV by Dr Almaraz to [facility] in September 2020. Not found to be a suitable candidate for any surgery due to continuing methamphetamine abuse Hyperlipidemia, by hx Tobaccoism, educated on smoking cessation (reports no usage in a month or two) Continued methamphetamine use - cessation advised (reports no usage in a month or two) Continued marijuana use - cessation advised (reports no usage in a month or two) H/o noncompliance with medications and f/u Plan: Hold diuretics for now Gentle hydration Vasopressors as needed Monitor labs Monitor lab closely - replace electrolytes as indicated Clinical Quality Measures Smoking Cessation Counseling: Counseling-Symptomatic: 3-10 Minutes Discussed Options Including: Group/Indiv Counseling ALETHEA ALMAZAN MD [facility] Mar 14, 2021 14:02
[2021-03-15] MEDS: NOREPINEPHRINE 8 MG/250 ML 250 ML IV SCH ×2 (04:46→08:31)
[2021-03-15] MEDS: NS IV 1000 ML 1,000 ML IV SCH (04:46)
[2021-03-15] MEDS: ACETAMINOPHEN 325 MG TABLET PO PRN (04:46)
[2021-03-15 05:00] LABS: BASOPHILS # (AUTO) 0.1 10^3/uL (0.0-0.1); BASOPHILS % (AUTO) 1 % (0-10); EOSINOPHILS # (AUTO) 0.1 10^3/uL (0.0-0.3); EOSINOPHILS % (AUTO) 1 % (0-10); HEMATOCRIT 37 % (40-54); HEMOGLOBIN 11.6 g/dL (13.3-17.7); LYMPHOCYTES # (AUTO) 1.7 10^3/uL (1.0-4.0); LYMPHOCYTES % (AUTO) 13 % (12-44); MEAN CORPUSCULAR HEMOGLOBIN 28 pg (25-34); MEAN CORPUSCULAR HGB CONC 31 g/dL (32-36); MEAN CORPUSCULAR VOLUME 91 fL (80-99); MEAN PLATELET VOLUME 10.6 fL (9.0-12.2); MONOCYTES # (AUTO) 1.5 10^3/uL (0.0-1.0); MONOCYTES % (AUTO) 11 % (0-12); NEUTROPHILS # (AUTO) 9.8 10^3/uL (1.8-7.8); NEUTROPHILS % (AUTO) 73 % (42-75); PLATELET COUNT 263 10^3/uL (130-400); WHITE BLOOD COUNT 13.4 10^3/uL (4.3-11.0)
[2021-03-15 05:21] LABS: ALBUMIN 2.4 GM/DL (3.2-4.5); POTASSIUM 4.8 MMOL/L (3.6-5.0)
[2021-03-15 05:22] LABS: CALCIUM 8.7 MG/DL (8.5-10.1)
[2021-03-15 05:25] LABS: BILIRUBIN,TOTAL 1.3 MG/DL (0.1-1.0)
[2021-03-15 05:27] LABS: CREATININE SERUM 0.73 MG/DL (0.60-1.30); PHOSPHORUS 2.6 MG/DL (2.3-4.7)
[2021-03-15 05:30] LABS: MAGNESIUM 1.6 MG/DL (1.6-2.4)
[2021-03-15] MEDS: MAGNESIUM 1 GM/100 ML IVPB 100 ML IV SCH ×3 (06:10→07:08)
[2021-03-15] MEDS: KCL 20 MEQ TAB (K-DUR) PO SCH ×2 (06:50→07:00)
[2021-03-15] MEDS: CATHETER FLUSH 10 ML SYR IV SCH ×3 (06:50→20:11)
[2021-03-15] MEDS: POTASSIUM CL 10MEQ/50ML IVPB 50 ML IV SCH (06:50)
--- NOTE | 2021-03-15 08:05 | Progress Note - Hospitalist ---
Subjective HPI/CC On Admission Date Seen by Provider: Mar 15, 2021 Time Seen by Provider: 11:30 Chief complaint: Shortness of breath History of present illness: This is a 50-year-old white male known to this hospital service due to multiple hospital stays historically for illicit drug use meth use causing severe cardiac issues who is withheld from illicit drug use for the last 2 months but suffered Covid pneumonia and not fully recovered maintained on home oxygen supplementation who presents to the ER with shortness of breath and lower extremity edema. He appears to be more declined every time I admit him. He appears 20 years older than stated age. He reports that he really needs the valvular heart surgery but it appears he is not a surgical candidate due to the poor reserve he has and other psychosocial issues that make rehabilitation a minimal success. Dr. Brantley has been consulted and he remains tachycardic. Subjective/Events-last exam Patient discouraged Increasing oxygen requirements Elevated liver enzymes Getting worse Sitting on side of the bed Talk to me about this is not a way to live and if he can have the surgery he " might as well ." I do believe he is near his end-of-life status but will need to take this one day at a time Review of Systems Pulmonary: Dyspnea, Cough Objective Exam Vital Signs Vital Signs Date Time Temp Pulse Resp B/P (MAP) Pulse Ox O2 Delivery O2 Flow Rate FiO2 03/16/21 04:00 High Flow N/C 5.00 03/16/21 01:00 92 03/16/21 00:00 30 92/69 96 03/15/21 20:00 37.2 Capillary Refill : Less Than 3 Seconds General Appearance: No Apparent Distress, WD/WN, Anxious, Chronically ill, Other (Tearful) Respiratory: No Accessory Muscle Use, No Respiratory Distress, Decreased Breath Sounds Cardiovascular: Irregularly Irregular Neurologic/Psychiatric: Alert, Oriented x3, Depressed Affect Results/Procedures Lab Patient resulted labs reviewed. Assessment/Plan Assessment and Plan Assess & Plan/Chief Complaint Assessment: Acute on chronic congestive heart failure systolic type Hypotension requiring ICU transfer on 03/13/2021 Valvular heart disease Wide-complex tachycardia digoxin started Poor prognosis Plan: ICU Pressor therapy PICC line 03/14/2021: Supportive care Poor prognosis 03/15/2021: It appears he realizes that he is at the end of his life Critical Care Critically Ill Patient Diagnosis/Problems Diagnosis/Problems (1) Acute exacerbation of CHF (congestive heart failure) Status: Acute Qualifiers: Heart failure type: combined systolic and diastolic Qualified Codes: I50.43 - Acute on chronic combined systolic (congestive) and diastolic (congestive) heart failure (2) Leg swelling Status: Acute Clinical Quality Measures Smoking Cessation Counseling: Counseling-Symptomatic: 3-10 Minutes Discussed Options Including: Group/Indiv Counseling SOFIA HANKINS DO Mar 15, 2021 08:05
[2021-03-15] MEDS: DIGOXIN 0.25 MG (LANOXIN) TAB PO SCH (08:58)
[2021-03-15] MEDS: ASPIRIN 81 MG CHEW (CHILDREN'S ASA) PO SCH (08:58)
[2021-03-15] MEDS: ROSUVASTATIN 20 MG (CRESTOR) TABLET PO SCH (08:58)
[2021-03-15] MEDS: APIXABAN 5 MG (ELIQUIS) TABLET PO SCH ×2 (08:58→20:17)
[2021-03-15] MEDS: AMIODARONE 200 MG (CORDARONE) TAB PO SCH ×2 (08:58→20:17)
[2021-03-15] MEDS: RT-ALBUTEROL/IPRATROPIUM 3 ML (DUONEB) VIAL INH SCH ×2 (10:22→20:27)
--- NOTE | 2021-03-15 11:01 | Tele-ICU Progress Note ---
Subjective Date Seen by a Provider: Mar 15, 2021 Time Seen by a Provider: 11:01 Sepsis Event Evaluation Height, Weight, BMI Height: 6'2.00" Weight: 225lbs. 15.0oz. 102.631586tn; 28.59 BMI Method:Stated Exam Exam Patient acknowledged, consented, and participated in this virtual visit which was conducted using real time audio/video Vital Signs Date Time Temp Pulse Resp B/P (MAP) Pulse Ox O2 Delivery O2 Flow Rate FiO2 03/15/21 10:29 High Flow N/C 5.00 03/15/21 10:22 95 Nasal Cannula 5.00 03/15/21 10:00 89 25 102/81 99 High Flow N/C 3.00 03/15/21 09:00 78 35 111/76 96 High Flow N/C 3.00 03/15/21 08:31 98/67 03/15/21 08:30 36.0 03/15/21 08:00 80 31 94/73 94 High Flow N/C 3.00 03/15/21 07:28 High Flow N/C 3.00 03/15/21 07:00 84 15 97/71 96 High Flow N/C 3.00 03/15/21 07:00 81 03/15/21 06:00 75 22 103/70 95 High Flow N/C 3.00 03/15/21 05:14 36.4 03/15/21 05:00 78 97/68 95 High Flow N/C 3.00 03/15/21 04:00 85 12 93/71 94 High Flow N/C 3.00 03/15/21 04:00 High Flow N/C 3.00 03/15/21 03:00 76 95/70 100 High Flow N/C 3.00 03/15/21 02:00 80 101/74 100 High Flow N/C 3.00 03/15/21 01:00 82 03/15/21 01:00 80 23 101/71 94 High Flow N/C 3.00 03/15/21 00:05 36.5 03/15/21 00:04 High Flow N/C 3.00 03/15/21 00:00 81 18 101/71 100 High Flow N/C 3.00 03/14/21 23:00 83 13 104/60 99 High Flow N/C 3.00 03/14/21 22:00 92 22 101/71 100 High Flow N/C 3.00 03/14/21 21:04 96 Nasal Cannula 2.00 03/14/21 21:00 89 24 105/76 100 High Flow N/C 3.00 03/14/21 20:00 High Flow N/C 3.00 03/14/21 20:00 83 20 106/78 100 High Flow N/C 3.00 03/14/21 19:36 36.6 03/14/21 19:00 92 12 111/75 95 High Flow N/C 3.00 03/14/21 19:00 91 03/14/21 18:00 84 28 111/81 100 High Flow N/C 3.00 03/14/21 17:00 79 27 125/83 99 High Flow N/C 3.00 03/14/21 16:00 High Flow N/C 3.00 03/14/21 16:00 82 27 116/83 96 High Flow N/C 3.00 03/14/21 15:45 36.6 03/14/21 15:00 85 35 117/69 High Flow N/C 3.00 03/14/21 14:00 82 15 118/83 High Flow N/C 3.00 03/14/21 13:28 88/63 03/14/21 13:00 80 03/14/21 13:00 77 25 87/57 High Flow N/C 3.00 03/14/21 12:00 High Flow N/C 3.00 03/14/21 12:00 85 19 113/81 99 High Flow N/C 3.00 03/14/21 11:30 36.4 I & O 03/15/21 07:00 Intake Total 2086 ml Output Total 3000 ml Balance -914 ml Height & Weight Height: 6'2.00" Weight: 225lbs. 15.0oz. 102.158032wj; 28.59 BMI Method:Stated General Appearance: Chronically ill, Other (Shah and ashen) HEENT: PERRL/EOMI, Other (dry oral mucosa) Neck: Full Range of Motion, Normal Inspection, Non Tender Respiratory: No Accessory Muscle Use, No Respiratory Distress, Decreased Breath Sounds Cardiovascular: Regular Rate, Rhythm Capillary Refill: Less Than 3 Seconds Extremity: Normal Range of Motion, Swelling (3+ pitting edema bilateral lower extremities) Neurologic/Psychiatric: Alert, Oriented x3 Skin: Warm/Dry, Pallor Results Lab Laboratory Tests 03/14/21 03:27 03/15/21 04:51 Assessment/Plan Assessment/Plan (Tele-ICU Physician , Progress Note ) Available chart/ vitals / labs / Images reviewed Video assessment done using teleICU camera, rest of exam as per RN Discussed with RN , EXAM PER RN Events overnight : Afebrile I/O = even Drips: Pressors: LEVO , hemodynamically stable Consultants: cards Hospital course: (03/09) CHF and + PE / last ECHO EF 30-35% mod to severe TR, mod MR (03/13) to ICU with hypotension , a fib -> amio , Levophed A/P Hypotension/ shock - due to aggressive diuresis and volume loss - on levo to wean , - ? dobs ( as per cards Acute on chronic systolic congestive heart failure - as per cards Acute resp insufficiency - on 5 L O2 - monitor CAD, ICM - s/p stenting -LVEF 30-35%. Severely dilated RV. LA and RA mod dilated. Mod MR. Mod to severe TR. PASP 39 mmHg NSVT on 03/10/21, s/p AICD and pacer - asymptomatic. ICD interrogated on 03/11/21 and found to be functioning normally - amiodarone added to regimen on 03/10/21 Recurrent PE - Persistent DENG PE , NEW LLL segmental PE by CTA 03-09-21 -no evidence of right heart strain - No DVT on venous doppler of 03-10-21- - ELIQUIS 5 bid Hemoptysis, likely due to pulm embolism - resolved , follow onEliquis Hyponatremia -mild , monitor Right-sided pleural effusion probably due to congestive heart failure - follow Lines : RIGHT PICC 03/14 (Central Line Necessity Reviewed) Love: + OG: Nutrition: PO Analgesia: toradol , tylenol Anxiety/ delirium VTE Prophylaxis: apixaban Stress Ulcer Prophylaxis: - on PO Glycemic Control: Plans in collaboration with bedside consultants and IM MDs. Discussed with RN to reach out if any questions or concerns A total of 31minutes of critical care time was devoted to this patient today, required to treat and/or prevent further deterioration of critical care condition ( as above) . TREVIN NDIAYE MD Mar 15, 2021 11:01
--- NOTE | 2021-03-15 15:37 | Progress Note - Cardiology ---
Cardiology SOAP Progress Note Subjective: Gen weakness and malaise present Shortness of breath and swelling have improved No cp or palp or syncope No n/v/d Objective: I&O/Vital Signs 03/15/21 03/15/21 03/15/21 03/15/21 04:00 04:00 05:00 05:14 Temp 36.4 Pulse 85 78 Resp 12 B/P (MAP) 93/71 97/68 Pulse Ox 94 95 O2 Delivery High Flow N/C High Flow N/C High Flow N/C O2 Flow Rate 3.00 3.00 3.00 03/15/21 03/15/21 03/15/21 03/15/21 06:00 07:00 07:00 07:28 Pulse 75 81 84 Resp 22 15 B/P (MAP) 103/70 97/71 Pulse Ox 95 96 O2 Delivery High Flow N/C High Flow N/C High Flow N/C O2 Flow Rate 3.00 3.00 3.00 03/15/21 03/15/21 03/15/21 03/15/21 08:00 08:30 08:31 09:00 Temp 36.0 Pulse 80 78 Resp 31 35 B/P (MAP) 94/73 98/67 111/76 Pulse Ox 94 96 O2 Delivery High Flow N/C High Flow N/C O2 Flow Rate 3.00 3.00 03/15/21 03/15/21 03/15/21 03/15/21 10:00 10:22 10:29 11:00 Pulse 89 85 Resp 25 12 B/P (MAP) 102/81 105/79 Pulse Ox 99 95 98 O2 Delivery High Flow N/C Nasal Cannula High Flow N/C High Flow N/C O2 Flow Rate 3.00 5.00 5.00 5.00 03/15/21 03/15/21 03/15/21 03/15/21 12:00 12:00 12:00 13:00 Temp 36.5 Pulse 81 90 Resp 14 B/P (MAP) 116/83 Pulse Ox 96 O2 Delivery High Flow N/C High Flow N/C O2 Flow Rate 5.00 3.00 03/15/21 03/15/21 13:00 14:00 Pulse 79 81 Resp 24 19 B/P (MAP) 114/81 107/80 Pulse Ox 94 98 O2 Delivery High Flow N/C High Flow N/C O2 Flow Rate 5.00 5.00 03/15/21 00:00 Intake Total 1036 ml Output Total 2100 ml Balance -1064 ml Weight (Pounds): 225 Weight (Ounces): 15.0 Weight (Calculated Kilograms): 102.518503 Constitutional: AAO x 3, well-developed, well-nourished Respiratory: No accessory muscle use, No respiratory distress; chest expansion is symmetric, chest is bilaterally symmetric, other (diminished lower lobes bilat; prolonged exp phase) Cardiovascular: regular rate-rhythm, systolic murmur Gastrointestional: No tender; round Extremities: significant edema (bilat pitting edema of the calves and feet bilat (improving)) Neurologic/Psychiatric: oriented x 3, other (moves all limbs equally) Skin: other (dry, flaky skin) Results/Procedures: Labs Laboratory Tests 03/15/21 04:51: White Blood Count 13.4H, Red Blood Count 4.09L, Hemoglobin 11.6L, Hematocrit 37L , Mean Corpuscular Volume 91, Mean Corpuscular Hemoglobin 28, Mean Corpuscular Hemoglobin Concent 31L, Red Cell Distribution Width 19.9H, Platelet Count 263, Mean Platelet Volume 10.6, Immature Granulocyte % (Auto) 2, Neutrophils (%) (Auto) 73, Lymphocytes (%) (Auto) 13, Monocytes (%) (Auto) 11, Eosinophils (%) (Auto) 1, Basophils (%) (Auto) 1, Neutrophils # (Auto) 9.8H, Lymphocytes # (Auto) 1.7, Monocytes # (Auto) 1.5H, Eosinophils # (Auto) 0.1, Basophils # (Auto) 0.1, Immature Granulocyte # (Auto) 0.2H, Sodium Level 131L, Potassium Level 4.8, Chloride Level 95L, Carbon Dioxide Level 25, Anion Gap 11, Blood Urea Nitrogen 17, Creatinine 0.73, Estimat Glomerular Filtration Rate 114, BUN/C reatinine Ratio 23, Glucose Level 101, Calcium Level 8.7, Corrected Calcium 10.0, Phosphorus Level 2.6, Magnesium Level 1.6, Total Bilirubin 1.3H, Aspartate Amino Transf (AST/SGOT) 69H, Alanine Aminotransferase (ALT/SGPT) 43, Alkaline Phosphatase 210H, Total Protein 6.0L, Albumin 2.4L Microbiology 10/1/21 MRSA Screen - Final, Complete MRSA not isolated Laboratory Tests 03/14/21 03:27 03/15/21 04:51 A/P: Assessment: Hypotension - probably due to vol depletion from aggressive diuresis - low cardiac output due to low EF contributing Episode of NSVT on 03/10/21 - asymptomatic. ICD interrogated on 03/11/21 and found to be functioning normally - amiodarone added to regimen on 03/10/21 Acute on chronic systolic CHF - improving A fib/flutter with RVR - rate improved Hemoptysis, likely due to pulm embolism - medical services managing Recurrent Pulmonary Emboli - Persistent left upper lobe pulmonary embolism with new left lower lobe segmental pulmonary emboli. No right-sided emboli are seen. There is no evidence of right heart strain. Per CTA of the chest on 03-09-21 - No evidence of DVT on venous doppler of 03-10-21 CAD: - H/o [place] in late Jan 2019 (see below) - Card cath on 02/01/19: Coronary artery disease consisting of complete ostial occlusion of the left anterior descending artery to which successful percutaneous coronary intervention was carried out. Following deployment of Alpine Xience 2.75 x 18 mm stent, there is no significant residual stenosis. A large obtuse marginal of the left circumflex shows 80% bifurcation stenosis in its distal portion. Right coronary artery is dominant and has mild disease. Elevated left ventricular end-diastolic pressure. Well preserved global left ventricular systolic function with ejection fraction approximately 55%. - Repeat intervention on 02-07-[address] Almaraz: balloon angioplasty to the ostium and proximal LAD with slow flow in the LAD with reestablishment of flow and good results. Mild disease in the circumflex and right coronary artery Dilated left ventricle with anterior wall hypokinesia to akinesia, estimated ejection fraction 30% - Last cardiac cath by Dr Almaraz on 09/17/20: Moderate to severe proximal and mid LAD, severe mid vessel disease of an OM, distal LAD fistula to the venous system / RV, dilated left ventricle with diffuse left ventricular hypokinesia ejection fraction 30% Ischemic cardiomyopathy. - Echo on 02/04/19: LVEF 40-45%, anteroseptal hypokinesis, mild conc LVH, RVSP 20 mmHg. LVEF 30% on cardiac cath of 02-07-19. - Echo of May 25, 2019 showed LVEF 30-35% - s/p single chamber ICD for SCD prophylaxis in October 2019, functioning normally on interrogation of 03/11/21 - Echo of 12-08-20 showed LVEF 35-40%, mod to severe MR; mod TR; PASP 40-45 mmHg - Echo of 03-08-[address] Brantley showed LVEF 30-35%. Severely dilated RV. LA and RA mod dilated. Mod MR. Mod to severe TR. PASP 39 mmHg Transferred for consideration of CABG and repair of AV fistula and MV by Dr Almaraz to [facility] in September 2020. Not found to be a suitable candidate for any surgery due to continuing methamphetamine abuse Hyperlipidemia, by hx Tobaccoism, educated on smoking cessation (reports no usage in a month or two) Continued methamphetamine use - cessation advised (reports no usage in a month or two) Continued marijuana use - cessation advised (reports no usage in a month or two) H/o noncompliance with medications and f/u Plan: Hold diuretics for now Gentle hydration Vasopressors as needed Monitor labs Monitor lab closely - replace electrolytes as indicated Clinical Quality Measures Smoking Cessation Counseling: Counseling-Symptomatic: 3-10 Minutes Discussed Options Including: Group/Indiv Counseling ALETHEA ALMAZAN MD FACP [facility] Mar 15, 2021 15:37
[2021-03-16 05:57] LABS: BASOPHILS # (AUTO) 0.1 10^3/uL (0.0-0.1); BASOPHILS % (AUTO) 1 % (0-10); EOSINOPHILS # (AUTO) 0.1 10^3/uL (0.0-0.3); EOSINOPHILS % (AUTO) 1 % (0-10); HEMATOCRIT 37 % (40-54); HEMOGLOBIN 11.6 g/dL (13.3-17.7); LYMPHOCYTES # (AUTO) 1.7 10^3/uL (1.0-4.0); LYMPHOCYTES % (AUTO) 12 % (12-44); MEAN CORPUSCULAR HEMOGLOBIN 28 pg (25-34); MEAN CORPUSCULAR HGB CONC 31 g/dL (32-36); MEAN CORPUSCULAR VOLUME 90 fL (80-99); MONOCYTES # (AUTO) 1.3 10^3/uL (0.0-1.0); MONOCYTES % (AUTO) 9 % (0-12); NEUTROPHILS % (AUTO) 75 % (42-75); PLATELET COUNT 306 10^3/uL (130-400); WHITE BLOOD COUNT 13.3 10^3/uL (4.3-11.0)
[2021-03-16] MEDS: NOREPINEPHRINE 8 MG/250 ML 250 ML IV SCH ×2 (06:15→10:10)
[2021-03-16] MEDS: NS IV 1000 ML 1,000 ML IV SCH (06:15)
[2021-03-16] MEDS: POTASSIUM CL 10MEQ/50ML IVPB 50 ML IV SCH (06:16)
[2021-03-16] MEDS: CATHETER FLUSH 10 ML SYR IV SCH ×3 (06:16→21:14)
[2021-03-16] MEDS: MAGNESIUM 1 GM/100 ML IVPB 100 ML IV SCH ×3 (06:16→08:18)
[2021-03-16] MEDS: KCL 20 MEQ TAB (K-DUR) PO SCH ×2 (06:16→08:17)
[2021-03-16 06:25] LABS: ALBUMIN 2.4 GM/DL (3.2-4.5); POTASSIUM 4.5 MMOL/L (3.6-5.0)
[2021-03-16 06:27] LABS: CALCIUM 8.6 MG/DL (8.5-10.1)
[2021-03-16 06:28] LABS: TOTAL PROTEIN 5.9 GM/DL (6.4-8.2)
[2021-03-16 06:30] LABS: BILIRUBIN,TOTAL 1.6 MG/DL (0.1-1.0)
[2021-03-16 06:31] LABS: PHOSPHORUS 2.6 MG/DL (2.3-4.7)
[2021-03-16 06:32] LABS: CREATININE SERUM 0.69 MG/DL (0.60-1.30)
[2021-03-16 06:35] LABS: MAGNESIUM 1.7 MG/DL (1.6-2.4)
[2021-03-16] MEDS: RT-ALBUTEROL/IPRATROPIUM 3 ML (DUONEB) VIAL INH SCH ×2 (07:43→22:14)
[2021-03-16] MEDS: ROSUVASTATIN 20 MG (CRESTOR) TABLET PO SCH (08:18)
[2021-03-16] MEDS: ASPIRIN 81 MG CHEW (CHILDREN'S ASA) PO SCH (08:18)
[2021-03-16] MEDS: AMIODARONE 200 MG (CORDARONE) TAB PO SCH ×2 (08:18→20:21)
[2021-03-16] MEDS: DIGOXIN 0.25 MG (LANOXIN) TAB PO SCH (08:18)
[2021-03-16] MEDS: APIXABAN 5 MG (ELIQUIS) TABLET PO SCH ×2 (08:18→20:21)
--- NOTE | 2021-03-16 09:06 | Tele-ICU Progress Note ---
Subjective Date Seen by a Provider: Mar 16, 2021 Time Seen by a Provider: 09:06 Sepsis Event Evaluation Height, Weight, BMI Height: 6'2.00" Weight: 225lbs. 15.0oz. 102.624550ub; 28.59 BMI Method:Stated Exam Exam Patient acknowledged, consented, and participated in this virtual visit which was conducted using real time audio/video Vital Signs Date Time Temp Pulse Resp B/P (MAP) Pulse Ox O2 Delivery O2 Flow Rate FiO2 03/16/21 08:35 High Flow N/C 3.00 03/16/21 08:01 36.4 03/16/21 08:00 93 36 91/63 96 High Flow N/C 3.00 03/16/21 07:48 High Flow N/C 3.00 03/16/21 07:43 96 High Flow N/C 3.00 03/16/21 07:00 91 41 108/80 95 High Flow N/C 5.00 03/16/21 06:48 84 03/16/21 06:00 91 28 116/79 97 High Flow N/C 5.00 03/16/21 05:00 93 31 90/66 97 High Flow N/C 5.00 03/16/21 04:00 High Flow N/C 5.00 03/16/21 04:00 93 28 90/63 96 High Flow N/C 5.00 03/16/21 03:00 91 21 106/80 96 High Flow N/C 5.00 03/16/21 02:00 90 21 103/72 97 High Flow N/C 5.00 03/16/21 01:00 92 03/16/21 01:00 92 30 101/71 95 High Flow N/C 5.00 03/16/21 00:00 High Flow N/C 5.00 03/16/21 00:00 89 30 92/69 96 High Flow N/C 5.00 03/15/21 23:00 90 26 91/63 98 High Flow N/C 5.00 03/15/21 22:00 87 17 113/82 91 High Flow N/C 5.00 03/15/21 21:00 89 23 128/84 97 High Flow N/C 5.00 03/15/21 20:27 96 Nasal Cannula 4.00 03/15/21 20:00 37.2 03/15/21 20:00 High Flow N/C 5.00 03/15/21 20:00 85 17 115/84 94 High Flow N/C 5.00 03/15/21 19:32 36.4 86 20 94/63 98 High Flow N/C 5.00 03/15/21 19:00 89 17 104/80 97 High Flow N/C 5.00 03/15/21 19:00 89 03/15/21 18:00 92 21 114/79 99 High Flow N/C 5.00 03/15/21 17:00 82 10 108/77 93 High Flow N/C 5.00 03/15/21 16:00 35.9 03/15/21 16:00 High Flow N/C 4.00 03/15/21 16:00 78 27 108/80 98 High Flow N/C 5.00 03/15/21 15:00 80 31 108/84 93 High Flow N/C 5.00 03/15/21 14:00 81 19 107/80 98 High Flow N/C 5.00 03/15/21 13:00 79 24 114/81 94 High Flow N/C 5.00 03/15/21 13:00 90 03/15/21 12:00 36.5 03/15/21 12:00 High Flow N/C 3.00 03/15/21 12:00 81 14 116/83 96 High Flow N/C 5.00 03/15/21 11:00 85 12 105/79 98 High Flow N/C 5.00 03/15/21 10:29 High Flow N/C 5.00 03/15/21 10:22 95 Nasal Cannula 5.00 03/15/21 10:00 89 25 102/81 99 High Flow N/C 3.00 I & O 03/16/21 07:00 Intake Total 1550 ml Output Total 3625 ml Balance -2075 ml Height & Weight Height: 6'2.00" Weight: 225lbs. 15.0oz. 102.883635ty; 28.59 BMI Method:Stated General Appearance: No Apparent Distress, WD/WN, Anxious, Chronically ill, Other (Tearful) HEENT: PERRL/EOMI, Other (dry oral mucosa) Neck: Full Range of Motion, Normal Inspection, Non Tender Respiratory: No Accessory Muscle Use, No Respiratory Distress, Decreased Breath Sounds Cardiovascular: Irregularly Irregular Capillary Refill: Less Than 3 Seconds Extremity: Normal Range of Motion, Swelling (3+ pitting edema bilateral lower extremities) Neurologic/Psychiatric: Alert, Oriented x3, Depressed Affect Skin: Warm/Dry, Pallor Results Lab Laboratory Tests 03/15/21 04:51 03/16/21 05:40 Assessment/Plan Assessment/Plan (Tele-ICU Physician , Progress Note ) Available chart/ vitals / labs / Images reviewed Video assessment done using teleICU camera, rest of exam as per RN Discussed with RN , EXAM PER RN Events overnight : Afebrile I/O = sara 1400 Drips: Pressors: LEVO 0.06 Consultants: smiley Hospital course: (03/09) CHF and + PE / last ECHO EF 30-35% mod to severe TR, mod MR (03/13) to ICU with hypotension , a fib -> amio , Levophed A/P Hypotension/ shock - due to aggressive diuresis and volume loss - on levo to wean Acute on chronic systolic congestive heart failure - as per cards Acute resp insufficiency - on 3 L O2 - monitor HOME LEVEL CAD, ICM - s/p stenting -LVEF 30-35%. Severely dilated RV. LA and RA mod dilated. Mod MR. Mod to severe TR. PASP 39 mmHg NSVT on 03/10/21, s/p AICD and pacer - asymptomatic. ICD interrogated on 03/11/21 and found to be functioning normally - amiodarone added to regimen on 03/10/21 Recurrent PE - Persistent DENG PE , NEW LLL segmental PE by CTA 03-09-21 -no evidence of right heart strain - No DVT on venous doppler of 03-10-21- - ELIQUIS 5 bid Hemoptysis, likely due to pulm embolism - resolved , follow onEliquis Hyponatremia -mild , monitor Right-sided pleural effusion probably due to congestive heart failure - follow Lines : RIGHT PICC 03/14 (Central Line Necessity Reviewed) Love: + OG: Nutrition: PO Analgesia: toradol , tylenol Anxiety/ delirium VTE Prophylaxis: apixaban Stress Ulcer Prophylaxis: - on PO Glycemic Control: Plans in collaboration with bedside consultants and IM MDs. Discussed with RN to reach out if any questions or concerns A total of 31minutes of critical care time was devoted to this patient today, required to treat and/or prevent further deterioration of critical care condition ( as above) . TREVIN NDIAYE MD Mar 16, 2021 09:06
[2021-03-16] MEDS: FUROSEMIDE 40 MG/4 ML INJ (LASIX) IVP SCH (10:10)
--- NOTE | 2021-03-16 10:56 | Progress Note - Cardiology ---
Cardiology SOAP Progress Note Subjective: No cp or palp or syncope Swelling better No focal weakness Gen weakness and malaise present No n/v/d Shortness of breath better Objective: I&O/Vital Signs 03/15/21 03/16/21 03/16/21 03/16/21 23:00 00:00 00:00 01:00 Pulse 90 89 92 Resp 26 30 30 B/P (MAP) 91/63 92/69 101/71 Pulse Ox 98 96 95 O2 Delivery High Flow N/C High Flow N/C High Flow N/C High Flow N/C O2 Flow Rate 5.00 5.00 5.00 5.00 03/16/21 03/16/21 03/16/21 03/16/21 01:00 02:00 03:00 04:00 Pulse 92 90 91 93 Resp 21 21 28 B/P (MAP) 103/72 106/80 90/63 Pulse Ox 97 96 96 O2 Delivery High Flow N/C High Flow N/C High Flow N/C O2 Flow Rate 5.00 5.00 5.00 03/16/21 03/16/21 03/16/21 03/16/21 04:00 05:00 06:00 06:48 Pulse 93 91 84 Resp 31 28 B/P (MAP) 90/66 116/79 Pulse Ox 97 97 O2 Delivery High Flow N/C High Flow N/C High Flow N/C O2 Flow Rate 5.00 5.00 5.00 03/16/21 03/16/21 03/16/21 03/16/21 07:00 07:43 07:48 08:00 Pulse 91 93 Resp 41 36 B/P (MAP) 108/80 91/63 Pulse Ox 95 96 96 O2 Delivery High Flow N/C High Flow N/C High Flow N/C High Flow N/C O2 Flow Rate 5.00 3.00 3.00 3.00 03/16/21 03/16/21 03/16/21 03/16/21 08:01 08:35 09:00 10:00 Temp 36.4 Pulse 90 93 Resp 33 25 B/P (MAP) 108/77 89/64 Pulse Ox 97 93 O2 Delivery High Flow N/C High Flow N/C High Flow N/C O2 Flow Rate 3.00 3.00 3.00 03/16/21 10:10 Pulse 90 B/P (MAP) 108/77 03/16/21 00:00 Intake Total 800 ml Output Total 2175 ml Balance -1375 ml Weight (Pounds): 225 Weight (Ounces): 15.0 Weight (Calculated Kilograms): 102.462150 Constitutional: AAO x 3, well-developed, well-nourished Respiratory: No accessory muscle use, No respiratory distress; chest expansion is symmetric, chest is bilaterally symmetric, other (diminished lower lobes bilat; prolonged exp phase) Cardiovascular: regular rate-rhythm, systolic murmur Gastrointestional: No tender; round Extremities: significant edema (bilat pitting edema of the calves and feet bilat (improving)) Neurologic/Psychiatric: oriented x 3, other (moves all limbs equally) Skin: other (dry, flaky skin) Results/Procedures: Labs Laboratory Tests 03/16/21 05:40: White Blood Count 13.3H, Red Blood Count 4.16L, Hemoglobin 11.6L, Hematocrit 37L , Mean Corpuscular Volume 90, Mean Corpuscular Hemoglobin 28, Mean Corpuscular Hemoglobin Concent 31L, Red Cell Distribution Width 19.9H, Platelet Count 306, Mean Platelet Volume 10.0, Immature Granulocyte % (Auto) 2, Neutrophils (%) (Auto) 75, Lymphocytes (%) (Auto) 12, Monocytes (%) (Auto) 9, Eosinophils (%) (Auto) 1, Basophils (%) (Auto) 1, Neutrophils # (Auto) 10.0H, Lymphocytes # (Auto) 1.7, Monocytes # (Auto) 1.3H, Eosinophils # (Auto) 0.1, Basophils # (Auto) 0.1, Immature Granulocyte # (Auto) 0.2H, Sodium Level 131L, Potassium Level 4.5, Chloride Level 97L, Carbon Dioxide Level 27, Anion Gap 7, Blood Urea Nitrogen 13, Creatinine 0.69, Estimat Glomerular Filtration Rate 121, BUN/Creatinine Ratio 19, Glucose Level 97, Calcium Level 8.6, Corrected Calcium 9.9, Phosphorus Level 2.6, Magnesium Level 1.7, Total Bilirubin 1.6H, Aspartate Amino Transf (AST/SGOT) 56H, Alanine Aminotransferase (ALT/SGPT) 38, Alkaline Phosphatase 219H, Total Protein 5.9L, Albumin 2.4L Microbiology 03/13/21 MRSA Screen - Final, Complete MRSA not isolated Laboratory Tests 03/15/21 04:51 03/16/21 05:40 A/P: Assessment: Hypotension - probably due to vol depletion from aggressive diuresis - low cardiac output due to low EF contributing Episode of NSVT on 03/10/21 - asymptomatic. ICD interrogated on 03/11/21 and found to be functioning normally - amiodarone added to regimen on 03/10/21 Acute on chronic systolic CHF - improving A fib/flutter with RVR - rate improved Hemoptysis, likely due to pulm embolism - medical services managing Recurrent Pulmonary Emboli - Persistent left upper lobe pulmonary embolism with new left lower lobe segmental pulmonary emboli. No right-sided emboli are seen. There is no evidence of right heart strain. Per CTA of the chest on 03-09-21 - No evidence of DVT on venous doppler of 03-10-21 CAD: - H/o AL in late Jan 2019 (see below) - Card cath on 02/01/19: Coronary artery disease consisting of complete ostial o cclusion of the left anterior descending artery to which successful percutaneous coronary intervention was carried out. Following deployment of Alpine Xience 2.75 x 18 mm stent, there is no significant residual stenosis. A large obtuse marginal of the left circumflex shows 80% bifurcation stenosis in its distal portion. Right coronary artery is dominant and has mild disease. Elevated left ventricular end-diastolic pressure. Well preserved global left ventricular systolic function with ejection fraction approximately 55%. - Repeat intervention on 02-07-[address] Almaraz: balloon angioplasty to the ostium and proximal LAD with slow flow in the LAD with reestablishment of flow and good results. Mild disease in the circumflex and right coronary artery Dilated left ventricle with anterior wall hypokinesia to akinesia, estimated ejection fraction 30% - Last cardiac cath by Dr Almaraz on 09/17/20: Moderate to severe proximal and mid LAD, severe mid vessel disease of an OM, distal LAD fistula to the venous system / RV, dilated left ventricle with diffuse left ventricular hypokinesia ejection fraction 30% Ischemic cardiomyopathy. - Echo on 02/04/19: LVEF 40-45%, anteroseptal hypokinesis, mild conc LVH, RVSP 20 mmHg. LVEF 30% on cardiac cath of 02-07-19. - Echo of May 25, 2019 showed LVEF 30-35% - s/p single chamber ICD for SCD prophylaxis in October 2019, functioning normally on interrogation of 03/11/21 - Echo of 12-08-20 showed LVEF 35-40%, mod to severe MR; mod TR; PASP 40-45 mmHg - Echo of 03-08-[address] Brantley showed LVEF 30-35%. Severely dilated RV. LA and RA mod dilated. Mod MR. Mod to severe TR. PASP 39 mmHg Transferred for consideration of CABG and repair of AV fistula and MV by Dr Maria Antonia lema to [facility] in September 2020. Not found to be a suitable candidate for any surgery due to continuing methamphetamine abuse Hyperlipidemia, by hx Tobaccoism, educated on smoking cessation (reports no usage in a month or two) Continued methamphetamine use - cessation advised (reports no usage in a month or two) Continued marijuana use - cessation advised (reports no usage in a month or two) H/o noncompliance with medications and f/u Plan: Continue to wean off vasopressors Add oral furosemide Monitor labs Clinical Quality Measures Smoking Cessation Counseling: Counseling-Symptomatic: 3-10 Minutes Discussed Options Including: Group/Indiv Counseling ALETHEA ALMAZAN MD FACP [facility] Mar 16, 2021 10:56
--- NOTE | 2021-03-16 11:39 | Physical Therapy Progress Note ---
Therapy Progress Note Patient refused PT stating, "I just got some bad news." Patient was crying. RN notified. 1 ref ([id number]) WILL TROY PT Mar 16, 2021 11:39
[2021-03-16 22:59] VITALS: BP 91/74
[2021-03-17] MEDS: NS IV 1000 ML 1,000 ML IV SCH ×2 (00:58→15:00)
[2021-03-17 05:06] LABS: BASOPHILS # (AUTO) 0.1 10^3/uL (0.0-0.1); BASOPHILS % (AUTO) 1 % (0-10); EOSINOPHILS # (AUTO) 0.1 10^3/uL (0.0-0.3); EOSINOPHILS % (AUTO) 1 % (0-10); HEMATOCRIT 37 % (40-54); HEMOGLOBIN 11.2 g/dL (13.3-17.7); LYMPHOCYTES # (AUTO) 1.5 10^3/uL (1.0-4.0); LYMPHOCYTES % (AUTO) 12 % (12-44); MEAN CORPUSCULAR HEMOGLOBIN 28 pg (25-34); MEAN CORPUSCULAR HGB CONC 31 g/dL (32-36); MEAN CORPUSCULAR VOLUME 91 fL (80-99); MEAN PLATELET VOLUME 9.8 fL (9.0-12.2); MONOCYTES # (AUTO) 1.2 10^3/uL (0.0-1.0); MONOCYTES % (AUTO) 10 % (0-12); NEUTROPHILS # (AUTO) 9.2 10^3/uL (1.8-7.8); NEUTROPHILS % (AUTO) 74 % (42-75); PLATELET COUNT 325 10^3/uL (130-400); WHITE BLOOD COUNT 12.4 10^3/uL (4.3-11.0)
[2021-03-17 05:16] LABS: ALBUMIN 2.4 GM/DL (3.2-4.5); POTASSIUM 4.5 MMOL/L (3.6-5.0)
[2021-03-17 05:17] LABS: CALCIUM 8.5 MG/DL (8.5-10.1)
[2021-03-17 05:18] LABS: TOTAL PROTEIN 6.2 GM/DL (6.4-8.2)
--- NOTE | 2021-03-17 05:18 | Progress Note - Hospitalist ---
Subjective HPI/CC On Admission Date Seen by Provider: Mar 16, 2021 Time Seen by Provider: 11:00 Chief complaint: Shortness of breath History of present illness: This is a 50-year-old white male known to this hospital service due to multiple hospital stays historically for illicit drug use meth use causing severe cardiac issues who is withheld from illicit drug use for the last 2 months but suffered Covid pneumonia and not fully recovered maintained on home oxygen supplementation who presents to the ER with shortness of breath and lower extremity edema. He appears to be more declined every time I admit him. He appears 20 years older than stated age. He reports that he really needs the valvular heart surgery but it appears he is not a surgical candidate due to the poor reserve he has and other psychosocial issues that make rehabilitation a minimal success. Dr. Brantley has been consulted and he remains tachycardic. Subjective/Events-last exam Late entry inadvertently missed note Pt doing a little better Has become stable Levophed is down to 0.03 mcg Overall much improved but poor prognosis remains Will consult palliative care Review of Systems General: Fatigue, Malaise Objective Exam Vital Signs Vital Signs Date Time Temp Pulse Resp B/P (MAP) Pulse Ox O2 Delivery O2 Flow Rate FiO2 03/17/21 04:00 High Flow N/C 3.00 03/17/21 03:33 36.4 03/17/21 01:00 90 03/17/21 00:00 42 110/73 96 Capillary Refill : Less Than 3 Seconds General Appearance: No Apparent Distress, WD/WN, Chronically ill, Other (Shah and ashen) Respiratory: Lungs Clear, Normal Breath Sounds Cardiovascular: Regular Rate, Rhythm Neurologic/Psychiatric: Alert, Oriented x3, No Motor/Sensory Deficits, Normal Mood/Affect Results/Procedures Lab Laboratory Tests 03/16/21 05:40 03/17/21 04:59 Patient resulted labs reviewed. Assessment/Plan Assessment and Plan Assess & Plan/Chief Complaint Assessment: Acute on chronic congestive heart failure systolic type Hypotension requiring ICU transfer on 03/13/2021 Valvular heart disease Wide-complex tachycardia digoxin started Poor prognosis Plan: ICU Pressor therapy PICC line 03/14/2021: Supportive care Poor prognosis 03/15/2021: It appears he realizes that he is at the end of his life 03/16/2021: Supportive care Prognosis guarded Critical Care Critically Ill Patient Diagnosis/Problems Diagnosis/Problems (1) Acute exacerbation of CHF (congestive heart failure) Status: Acute Qualifiers: Heart failure type: combined systolic and diastolic Qualified Codes: I50.43 - Acute on chronic combined systolic (congestive) and diastolic (congestive) heart failure (2) Leg swelling Status: Acute Clinical Quality Measures Smoking Cessation Counseling: Counseling-Symptomatic: 3-10 Minutes Discussed Options Including: Group/Indiv Counseling SOFIA HANKINS DO Mar 17, 2021 05:18
[2021-03-17 05:20] LABS: BILIRUBIN,TOTAL 1.6 MG/DL (0.1-1.0)
[2021-03-17 05:22] LABS: CREATININE SERUM 0.66 MG/DL (0.60-1.30)
[2021-03-17 05:25] LABS: MAGNESIUM 1.7 MG/DL (1.6-2.4)
[2021-03-17] MEDS: POTASSIUM CL 10MEQ/50ML IVPB 50 ML IV SCH (06:00)
[2021-03-17] MEDS: KCL 20 MEQ TAB (K-DUR) PO SCH ×2 (06:00→08:45)
[2021-03-17] MEDS: MAGNESIUM 1 GM/100 ML IVPB 100 ML IV SCH ×3 (06:01→08:46)
[2021-03-17] MEDS: CATHETER FLUSH 10 ML SYR IV SCH ×3 (06:07→20:31)
[2021-03-17] MEDS: FUROSEMIDE 40 MG/4 ML INJ (LASIX) IVP SCH (08:45)
[2021-03-17] MEDS: AMIODARONE 200 MG (CORDARONE) TAB PO SCH ×2 (08:45→20:31)
[2021-03-17] MEDS: ASPIRIN 81 MG CHEW (CHILDREN'S ASA) PO SCH (08:45)
[2021-03-17] MEDS: DIGOXIN 0.25 MG (LANOXIN) TAB PO SCH (08:45)
[2021-03-17] MEDS: NOREPINEPHRINE 8 MG/250 ML 250 ML IV SCH ×2 (08:45→17:31)
[2021-03-17] MEDS: APIXABAN 5 MG (ELIQUIS) TABLET PO SCH ×2 (08:45→20:31)
[2021-03-17] MEDS: ROSUVASTATIN 20 MG (CRESTOR) TABLET PO SCH (08:45)
--- NOTE | 2021-03-17 09:48 | Progress Note - Hospitalist ---
Subjective HPI/CC On Admission Date Seen by Provider: Mar 17, 2021 Time Seen by Provider: 11:00 Chief complaint: Shortness of breath History of present illness: This is a 50-year-old white male known to this hospital service due to multiple hospital stays historically for illicit drug use meth use causing severe cardiac issues who is withheld from illicit drug use for the last 2 months but suffered Covid pneumonia and not fully recovered maintained on home oxygen supplementation who presents to the ER with shortness of breath and lower extremity edema. He appears to be more declined every time I admit him. He appears 20 years older than stated age. He reports that he really needs the valvular heart surgery but it appears he is not a surgical candidate due to the poor reserve he has and other psychosocial issues that make rehabilitation a minimal success. Dr. Brantley has been consulted and he remains tachycardic. Subjective/Events-last exam Pt doing about the same Was tearful with palliative care yesterday Starting Brilinta CHF receiving good diuresis from Lasix Review of Systems Pulmonary: Dyspnea Objective Exam Vital Signs Vital Signs Date Time Temp Pulse Resp B/P (MAP) Pulse Ox O2 Delivery O2 Flow Rate FiO2 03/18/21 00:16 98 High Flow N/C 3.00 03/18/21 00:07 36.4 03/17/21 23:00 90 16 88/64 Capillary Refill : Less Than 3 Seconds General Appearance: No Apparent Distress, WD/WN, Chronically ill, Other (Shah and ashen) Respiratory: No Accessory Muscle Use, No Respiratory Distress, Decreased Breath Sounds Cardiovascular: Regular Rate, Rhythm Neurologic/Psychiatric: Alert, Oriented x3, No Motor/Sensory Deficits, Normal Mood/Affect Results/Procedures Lab Laboratory Tests 03/17/21 04:59 Patient resulted labs reviewed. Assessment/Plan Assessment and Plan Assess & Plan/Chief Complaint Assessment: Acute on chronic congestive heart failure systolic type Hypotension requiring ICU transfer on 03/13/2021 Valvular heart disease Wide-complex tachycardia digoxin started Poor prognosis Plan: ICU Pressor therapy PICC line 03/14/2021: Supportive care Poor prognosis 03/15/2021: It appears he realizes that he is at the end of his life 03/16/2021: Supportive care Prognosis guarded 03/17/2021: Supportive care Wean Levophed Poor prognosis Critical Care Critically Ill Patient Diagnosis/Problems Diagnosis/Problems (1) Acute exacerbation of CHF (congestive heart failure) Status: Acute Qualifiers: Heart failure type: combined systolic and diastolic Qualified Codes: I50.43 - Acute on chronic combined systolic (congestive) and diastolic (congestive) heart failure (2) Leg swelling Status: Acute Clinical Quality Measures Smoking Cessation Counseling: Counseling-Symptomatic: 3-10 Minutes Discussed Options Including: Group/Indiv Counseling SOFIA HANKINS DO Mar 17, 2021 09:48
--- NOTE | 2021-03-17 09:50 | Tele-ICU Progress Note ---
Subjective Date Seen by a Provider: Mar 17, 2021 Time Seen by a Provider: 09:49 Sepsis Event Evaluation Height, Weight, BMI Height: 6'2.00" Weight: 225lbs. 15.0oz. 102.124850ll; 28.59 BMI Method:Stated Exam Exam Patient acknowledged, consented, and participated in this virtual visit which was conducted using real time audio/video Vital Signs Date Time Temp Pulse Resp B/P (MAP) Pulse Ox O2 Delivery O2 Flow Rate FiO2 03/17/21 08:00 36.5 03/17/21 06:55 High Flow N/C 3.00 03/17/21 06:50 95 03/17/21 06:00 94 28 99/77 85 High Flow N/C 3.00 03/17/21 05:00 91 26 101/71 High Flow N/C 3.00 03/17/21 04:00 High Flow N/C 3.00 03/17/21 04:00 92 28 105/72 High Flow N/C 3.00 03/17/21 03:33 36.4 03/17/21 03:00 93 30 100/76 High Flow N/C 3.00 03/17/21 02:00 93 33 104/74 88 High Flow N/C 3.00 03/17/21 01:00 90 30 103/74 90 High Flow N/C 3.00 03/17/21 01:00 90 03/17/21 00:00 High Flow N/C 3.00 03/17/21 00:00 93 26 110/73 98 High Flow N/C 3.00 03/16/21 23:28 36.8 03/16/21 23:00 89 24 97/80 100 High Flow N/C 3.00 03/16/21 22:59 37.4 87 96 03/16/21 22:00 87 24 100/75 90 High Flow N/C 3.00 03/16/21 21:00 79 32 103/70 97 High Flow N/C 3.00 03/16/21 20:35 36.4 03/16/21 20:00 High Flow N/C 3.00 03/16/21 20:00 81 32 101/60 94 High Flow N/C 3.00 03/16/21 19:00 87 03/16/21 19:00 87 33 101/69 91 High Flow N/C 3.00 03/16/21 18:00 85 42 91/71 96 High Flow N/C 3.00 03/16/21 17:05 36.2 03/16/21 17:00 86 99 95/64 97 High Flow N/C 3.00 03/16/21 16:00 86 43 97/64 96 High Flow N/C 3.00 03/16/21 15:21 36.3 03/16/21 15:05 High Flow N/C 3.00 03/16/21 15:00 90 23 94/67 96 High Flow N/C 3.00 03/16/21 14:00 80 27 86/70 94 High Flow N/C 3.00 03/16/21 13:00 85 39 87/63 99 High Flow N/C 3.00 03/16/21 12:57 84 03/16/21 12:51 High Flow N/C 3.00 03/16/21 12:38 36.4 03/16/21 12:00 90 15 93/68 98 High Flow N/C 3.00 03/16/21 11:00 96 39 97/75 97 High Flow N/C 3.00 03/16/21 10:10 90 108/77 03/16/21 10:00 93 25 89/64 93 High Flow N/C 3.00 I & O 03/17/21 07:00 Intake Total 3215 ml Output Total 4400 ml Balance -1185 ml Height & Weight Height: 6'2.00" Weight: 225lbs. 15.0oz. 102.231840cn; 28.59 BMI Method:Stated General Appearance: No Apparent Distress, WD/WN, Chronically ill, Other (Shah and ashen) HEENT: PERRL/EOMI, Other (dry oral mucosa) Neck: Full Range of Motion, Normal Inspection, Non Tender Respiratory: Lungs Clear, Normal Breath Sounds Cardiovascular: Regular Rate, Rhythm Capillary Refill: Less Than 3 Seconds Extremity: Normal Range of Motion, Swelling (3+ pitting edema bilateral lower extremities) Neurologic/Psychiatric: Alert, Oriented x3, No Motor/Sensory Deficits, Normal Mood/Affect Skin: Warm/Dry, Pallor Results Lab Laboratory Tests 03/16/21 05:40 03/17/21 04:59 Assessment/Plan Assessment/Plan (Tele-ICU Physician , Progress Note ) Available chart/ vitals / labs / Images reviewed Video assessment done using teleICU camera, rest of exam as per RN Discussed with RN , EXAM PER RN Events overnight : Afebrile I/O = sara 2400 Drips: Pressors: LEVO OFF Consultants: smiley Hospital course: (03/09) CHF and + PE / last ECHO EF 30-35% mod to severe TR, mod MR (03/13) to ICU with hypotension , a fib -> amio , Levophed A/P Hypotension/ shock - due to aggressive diuresis and volume loss - OFF LEVO Acute on chronic systolic congestive heart failure - as per cards Acute resp insufficiency - on 3 L O2 - monitor HOME LEVEL CAD, ICM - s/p stenting -LVEF 30-35%. Severely dilated RV. LA and RA mod dilated. Mod MR. Mod to severe TR. PASP 39 mmHg NSVT on 03/10/21, s/p AICD and pacer - asymptomatic. ICD interrogated on 03/11/21 and found to be functioning normally - amiodarone added to regimen on 03/10/21 Recurrent PE - Persistent DENG PE , NEW LLL segmental PE by CTA 03-09-21 -no evidence of right heart strain - No DVT on venous doppler of 03-10-21- - ELIQUIS 5 bid Hemoptysis, likely due to pulm embolism - resolved , follow onEliquis Hyponatremia -mild , monitor Right-sided pleural effusion probably due to congestive heart failure - follow Lines : RIGHT PICC 03/14 (Central Line Necessity Reviewed) Love: out OG: Nutrition: PO Analgesia: toradol , tylenol Anxiety/ delirium VTE Prophylaxis: apixaban Stress Ulcer Prophylaxis: - on PO Glycemic Control: Plans in collaboration with bedside consultants and IM MDs. Discussed with RN to reach out if any questions or concerns A total of 20 minutes of critical care time was devoted to this patient today, required to treat and/or prevent further deterioration of critical care c ondition ( as above) . TREVIN NDIAYE MD Mar 17, 2021 09:50
--- NOTE | 2021-03-17 10:22 | Physical Therapy Progress Note ---
Therapy Progress Note Patient refused PT stating, "I'm not good. I'm done." PT attempted to encourage patient to participate with PT to improve strength and mobility, however, patient states, "What for?" 1 ref ([id number]) WILL TROY PT Mar 17, 2021 10:22
--- NOTE | 2021-03-17 10:24 | Progress Note - Cardiology ---
Cardiology SOAP Progress Note Subjective: Sitting up in bed No c/o CP this morning Feels SOB is better than before No c/o palpitations Wants to know "when they will do his valve surgery" Objective: I&O/Vital Signs 03/20/21 03/20/21 03/20/21 03/20/21 00:00 04:00 04:00 08:00 Temp 36.6 Pulse 72 79 Resp 24 15 B/P (MAP) 95/66 83/67 Pulse Ox 88 97 O2 Delivery High Flow N/C High Flow N/C High Flow N/C O2 Flow Rate 8.00 8.00 8.00 03/20/21 03/20/21 08:00 08:11 Temp 36.5 Pulse 80 Resp 17 B/P (MAP) 106/73 Pulse Ox 98 O2 Delivery High Flow N/C O2 Flow Rate 8.00 03/20/21 00:00 Intake Total 360 ml Output Total 675 ml Balance -315 ml Weight (Pounds): 225 Weight (Ounces): 15.0 Weight (Calculated Kilograms): 102.432497 Constitutional: AAO x 3, well-developed, well-nourished Respiratory: No accessory muscle use, No respiratory distress; chest expansion is symmetric, chest is bilaterally symmetric, other (diminished lower lobes bilat; prolonged exp phase) Cardiovascular: regular rate-rhythm, systolic murmur Gastrointestional: No tender; round Extremities: significant edema (bilat LE 2+ edema) Neurologic/Psychiatric: oriented x 3, other (moves all limbs equally) Skin: other (dry, flaky skin) Results/Procedures: Labs Microbiology 03/13/21 MRSA Screen - Final, Complete MRSA not isolated A/P: Assessment: Hypotension - probably due to vol depletion from aggressive diuresis - low cardiac output due to low EF contributing Episode of NSVT on 03/10/21 - asymptomatic. ICD interrogated on 03/11/21 and found to be functioning normally - amiodarone added to regimen on 03/10/21 (received IV load, now on oral) Acute on chronic systolic CHF - improving A fib/flutter with RVR - rate improved Hemoptysis, likely due to pulm embolism - medical services managing Recurrent Pulmonary Emboli - Persistent left upper lobe pulmonary embolism with new left lower lobe segmental pulmonary emboli. No right-sided emboli are seen. There is no evidence of right heart strain. Per CTA of the chest on 03-09-21 - No evidence of DVT on venous doppler of 03-10-21 CAD: - H/o NC in late Jan 2019 (see below) - Card cath on 02/01/19: Coronary artery disease consisting of complete ostial occlusion of the left anterior descending artery to which successful percutaneous coronary intervention was carried out. Following deployment of Alpine Xience 2.75 x 18 mm stent, there is no significant residual stenosis. A large obtuse marginal of the left circumflex shows 80% bifurcation stenosis in its distal portion. Right coronary artery is dominant and has mild disease. Elevated left ventricular end-diastolic pressure. Well preserved global left ventricular systolic function with ejection fraction approximately 55%. - Repeat intervention on 02-07-[address] Almaraz: balloon angioplasty to the ostium and proximal LAD with slow flow in the LAD with reestablishment of flow and good results. Mild disease in the circumflex and right coronary artery Dilated left ventricle with anterior wall hypokinesia to akinesia, estimated ejection fraction 30% - Last cardiac cath by Dr Almaraz on 09/17/20: Moderate to severe proximal and mid LAD, severe mid vessel disease of an OM, distal LAD fistula to the venous system / RV, dilated left ventricle with diffuse left ventricular hypokinesia ejection fraction 30% Ischemic cardiomyopathy. - Echo on 02/04/19: LVEF 40-45%, anteroseptal hypokinesis, mild conc LVH, RVSP 20 mmHg. LVEF 30% on cardiac cath of 02-07-19. - Echo of May 25, 2019 showed LVEF 30-35% - s/p single chamber ICD for SCD prophylaxis in October 2019, functioning normally on interrogation of 03/11/21 - Echo of 12-08-20 showed LVEF 35-40%, mod to severe MR; mod TR; PASP 40-45 mmHg - Echo of 03-08-[address] Brantley showed LVEF 30-35%. Severely dilated RV. LA and RA mod dilated. Mod MR. Mod to severe TR. PASP 39 mmHg Transferred for consideration of CABG and repair of AV fistula and MV by Dr Almaraz to [facility] in September 2020. Not found to be a suitable candidate for any surgery due to continuing methamphetamine abuse Hyperlipidemia, by hx Tobaccoism, educated on smoking cessation (reports no usage in a month or two) Continued methamphetamine use - cessation advised (reports no usage in a month or two) Continued marijuana use - cessation advised (reports no usage in a month or two) H/o noncompliance with medications and f/u Plan: Continue to wean off vasopressors Continue oral furosemide Monitor labs closely Clinical Quality Measures Smoking Cessation Counseling: Counseling-Symptomatic: 3-10 Minutes Discussed Options Including: Group/Indiv Counseling MARGARITO IBANEZ [facility] Mar 17, 2021 10:24
[2021-03-17] MEDS: PROMETHAZINE/ CODEINE SYRUP 5 ML UDC PO PRN (17:30)
--- NOTE | 2021-03-17 17:33 | Progress Note - Cardiology ---
Cardiology SOAP Progress Note Subjective: No cp or palp or syncope No shortness of breath rest Some gen malaise and weakness No n/v/d Objective: I&O/Vital Signs 03/17/21 03/17/21 03/17/21 03/17/21 06:00 06:50 06:55 07:00 Pulse 94 95 96 Resp 28 30 B/P (MAP) 99/77 98/68 Pulse Ox 85 O2 Delivery High Flow N/C High Flow N/C High Flow N/C O2 Flow Rate 3.00 3.00 3.00 03/17/21 03/17/21 03/17/21 03/17/21 08:00 08:00 08:30 09:00 Temp 36.5 Pulse 103 93 Resp 11 24 B/P (MAP) 97/76 108/79 Pulse Ox 97 98 O2 Delivery High Flow N/C High Flow N/C High Flow N/C O2 Flow Rate 3.00 3.00 3.00 03/17/21 03/17/21 03/17/21 03/17/21 10:00 11:00 12:00 12:00 Temp 36.3 Pulse 99 92 89 Resp 35 20 20 B/P (MAP) 94/75 91/66 92/66 Pulse Ox 92 98 85 O2 Delivery High Flow N/C High Flow N/C High Flow N/C O2 Flow Rate 3.00 3.00 3.00 03/17/21 03/17/21 03/17/21 03/17/21 12:29 13:00 13:00 14:00 Pulse 83 84 89 Resp 27 13 B/P (MAP) 83/58 84/66 Pulse Ox 95 94 O2 Delivery High Flow N/C High Flow N/C High Flow N/C O2 Flow Rate 3.00 3.00 3.00 03/17/21 03/17/21 03/17/21 15:00 15:19 16:21 Temp 36.7 Pulse 79 Resp 31 B/P (MAP) 86/62 Pulse Ox 90 O2 Delivery High Flow N/C High Flow N/C O2 Flow Rate 3.00 3.00 03/17/21 00:00 Intake Total 1255 ml Output Total 3050 ml Balance -1795 ml Weight (Pounds): 225 Weight (Ounces): 15.0 Weight (Calculated Kilograms): 102.271128 Constitutional: AAO x 3, well-developed, well-nourished Respiratory: No accessory muscle use, No respiratory distress; chest expansion is symmetric, chest is bilaterally symmetric, other (diminished lower lobes bilat; prolonged exp phase) Cardiovascular: regular rate-rhythm, systolic murmur Gastrointestional: No tender; round Extremities: significant edema (bilat LE 2+ edema) Neurologic/Psychiatric: oriented x 3, other (moves all limbs equally) Skin: other (dry, flaky skin) Results/Procedures: Labs Laboratory Tests 03/17/21 04:59: White Blood Count 12.4H, Red Blood Count 4.03L, Hemoglobin 11.2L, Hematocrit 37L , Mean Corpuscular Volume 91, Mean Corpuscular Hemoglobin 28, Mean Corpuscular Hemoglobin Concent 31L, Red Cell Distribution Width 19.7H, Platelet Count 325, Mean Platelet Volume 9.8, Immature Granulocyte % (Auto) 2, Neutrophils (%) (Auto) 74, Lymphocytes (%) (Auto) 12, Monocytes (%) (Auto) 10, Eosinophils (%) (Auto) 1, Basophils (%) (Auto) 1, Neutrophils # (Auto) 9.2H, Lymphocytes # (Auto) 1.5, Monocytes # (Auto) 1.2H, Eosinophils # (Auto) 0.1, Basophils # (Auto) 0.1, Immature Granulocyte # (Auto) 0.2H, Sodium Level 134L, Potassium Level 4.5, Chloride Level 100, Carbon Dioxide Level 24, Anion Gap 10, Blood Urea Nitrogen 12, Creatinine 0.66, Estimat Glomerular Filtration Rate 128, BUN/Creatinine Ratio 18, Glucose Level 103, Calcium Level 8.5, Corrected Calcium 9.8, Phosphorus Level 3.0, Magnesium Level 1.7, Total Bilirubin 1.6H, Aspartate Amino Transf (AST/SGOT) 51H, Alanine Aminotransferase (ALT/SGPT) 37, Alkaline Phosphatase 204H, Total Protein 6.2L, Albumin 2.4L Microbiology 03/13/21 MRSA Screen - Final, Complete MRSA not isolated Laboratory Tests 03/16/21 05:40 03/17/21 04:59 A/P: Assessment: Hypotension, now improved - probably due to vol depletion from aggressive diuresis - low cardiac output due to low EF contributing Episode of NSVT on 03/10/21 - asymptomatic. ICD interrogated on 03/11/21 and found to be functioning normally - amiodarone added to regimen on 03/10/21 (received IV load, now on oral) Acute on chronic systolic CHF - improving A fib/flutter with RVR - rate improved Hemoptysis, likely due to pulm embolism - medical services managing Recurrent Pulmonary Emboli - Persistent left upper lobe pulmonary embolism with new left lower lobe segmental pulmonary emboli. No right-sided emboli are seen. There is no evidence of right heart strain. Per CTA of the chest on 03-09-21 - No evidence of DVT on venous doppler of 03-10-21 CAD: - H/o LA in late Jan 2019 (see below) - Card cath on 02/01/19: Coronary artery disease consisting of complete ostial occlusion of the left anterior descending artery to which successful percutaneous coronary intervention was carried out. Following deployment of Alpine Xience 2.75 x 18 mm stent, there is no significant residual stenosis. A large obtuse marginal of the left circumflex shows 80% bifurcation stenosis in its distal portion. Right coronary artery is dominant and has mild disease. Elevated left ventricular end-diastolic pressure. Well preserved global left ventricular systolic function with ejection fraction approximately 55%. - Repeat intervention on 02-07-[address] Almaraz: balloon angioplasty to the ostium and proximal LAD with slow flow in the LAD with reestablishment of flow and good results. Mild disease in the circumflex and right coronary artery Dilated left ventricle with anterior wall hypokinesia to akinesia, estimated ejection fraction 30% - Last cardiac cath by Dr Almaraz on 09/17/20: Moderate to severe proximal and mid LAD, severe mid vessel disease of an OM, distal LAD fistula to the venous system / RV, dilated left ventricle with diffuse left ventricular hypokinesia ejection fraction 30% Ischemic cardiomyopathy. - Echo on 02/04/19: LVEF 40-45%, anteroseptal hypokinesis, mild conc LVH, RVSP 20 mmHg. LVEF 30% on cardiac cath of 02-07-19. - Echo of May 25, 2019 showed LVEF 30-35% - s/p single chamber ICD for SCD prophylaxis in October 2019, functioning normally on interrogation of 03/11/21 - Echo of 12-08-20 showed LVEF 35-40%, mod to severe MR; mod TR; PASP 40-45 mmHg - Echo of 03-08-[address] Brantley showed LVEF 30-35%. Severely dilated RV. LA and RA mod dilated. Mod MR. Mod to severe TR. PASP 39 mmHg Transferred for consideration of CABG and repair of AV fistula and MV by Dr Almaraz to [facility] in September 2020. Not found to be a suitable candidate for any surgery due to continuing methamphetamine abuse Hyperlipidemia, by hx Tobaccoism, educated on smoking cessation (reports no usage in a month or two) Continued methamphetamine use - cessation advised (reports no usage in a month or two) Continued marijuana use - cessation advised (reports no usage in a month or two) H/o noncompliance with medications and f/u Plan: Continue oral furosemide Monitor labs closely Clinical Quality Measures Smoking Cessation Counseling: Counseling-Symptomatic: 3-10 Minutes Discussed Options Including: Group/Indiv Counseling ALETHEA ALMAZAN MD FACP [facility] Mar 17, 2021 17:33
[2021-03-17] MEDS: RT-ALBUTEROL/IPRATROPIUM 3 ML (DUONEB) VIAL INH PRN (19:12)
[2021-03-18] MEDS: PROMETHAZINE/ CODEINE SYRUP 5 ML UDC PO PRN (00:07)
[2021-03-18] MEDS: RT-ALBUTEROL/IPRATROPIUM 3 ML (DUONEB) VIAL INH PRN (00:16)
[2021-03-18] MEDS: ACETAMINOPHEN 325 MG TABLET PO PRN (01:50)
[2021-03-18] MEDS ORDERED: ALPRAZolam 0.25 MG (XANAX) TAB ONE (01:58)
[2021-03-18] MEDS ORDERED: ALPRAZolam 0.25 MG (XANAX) TAB PO ONE (02:00)
[2021-03-18 05:13] LABS: BASOPHILS # (AUTO) 0.1 10^3/uL (0.0-0.1); BASOPHILS % (AUTO) 1 % (0-10); EOSINOPHILS # (AUTO) 0.1 10^3/uL (0.0-0.3); EOSINOPHILS % (AUTO) 1 % (0-10); HEMATOCRIT 36 % (40-54); HEMOGLOBIN 10.9 g/dL (13.3-17.7); LYMPHOCYTES # (AUTO) 1.7 10^3/uL (1.0-4.0); LYMPHOCYTES % (AUTO) 13 % (12-44); MEAN CORPUSCULAR HEMOGLOBIN 28 pg (25-34); MEAN CORPUSCULAR HGB CONC 31 g/dL (32-36); MEAN CORPUSCULAR VOLUME 91 fL (80-99); MEAN PLATELET VOLUME 9.4 fL (9.0-12.2); MONOCYTES # (AUTO) 1.2 10^3/uL (0.0-1.0); MONOCYTES % (AUTO) 9 % (0-12); NEUTROPHILS # (AUTO) 9.6 10^3/uL (1.8-7.8); NEUTROPHILS % (AUTO) 73 % (42-75); PLATELET COUNT 286 10^3/uL (130-400); WHITE BLOOD COUNT 13.1 10^3/uL (4.3-11.0)
[2021-03-18 05:28] LABS: ALBUMIN 2.6 GM/DL (3.2-4.5); POTASSIUM 5.3 MMOL/L (3.6-5.0)
[2021-03-18 05:29] LABS: CALCIUM 8.7 MG/DL (8.5-10.1)
[2021-03-18 05:31] LABS: TOTAL PROTEIN 6.5 GM/DL (6.4-8.2)
[2021-03-18 05:32] LABS: BILIRUBIN,TOTAL 1.8 MG/DL (0.1-1.0)
[2021-03-18 05:34] LABS: CREATININE SERUM 0.82 MG/DL (0.60-1.30); PHOSPHORUS 3.7 MG/DL (2.3-4.7)
[2021-03-18] MEDS: CATHETER FLUSH 10 ML SYR IV SCH ×3 (06:12→22:53)
[2021-03-18] MEDS: MAGNESIUM 1 GM/100 ML IVPB 100 ML IV SCH (06:12)
[2021-03-18] MEDS: POTASSIUM CL 10MEQ/50ML IVPB 50 ML IV SCH (06:12)
[2021-03-18] MEDS: KCL 20 MEQ TAB (K-DUR) PO SCH ×2 (06:12)
[2021-03-18] MEDS: NOREPINEPHRINE 8 MG/250 ML 250 ML IV SCH (07:43)
[2021-03-18] MEDS: PRASUGREL 10 MG (EFFIENT) TABLET PO SCH (07:55)
[2021-03-18] MEDS: ASPIRIN 81 MG CHEW (CHILDREN'S ASA) PO SCH (07:55)
[2021-03-18] MEDS: ROSUVASTATIN 20 MG (CRESTOR) TABLET PO SCH ×2 (07:55→07:56)
[2021-03-18] MEDS: FUROSEMIDE 40 MG/4 ML INJ (LASIX) IVP SCH (07:55)
[2021-03-18] MEDS: AMIODARONE 200 MG (CORDARONE) TAB PO SCH ×2 (07:55→20:55)
[2021-03-18] MEDS: DIGOXIN 0.25 MG (LANOXIN) TAB PO SCH (07:55)
[2021-03-18] MEDS: APIXABAN 5 MG (ELIQUIS) TABLET PO SCH ×2 (07:56→20:55)
[2021-03-18] MEDS: ASPIRIN E.C. 81 MG (ECOTRIN) TAB PO SCH (07:56)
--- NOTE | 2021-03-18 08:42 | Tele-ICU Progress Note ---
Subjective Date Seen by a Provider: Mar 18, 2021 Time Seen by a Provider: 08:38 Subjective/Events-last exam Admitted for CHF, low LVEF 30%, thought to have ischemic CPM, extensive CAD on cardiac cath. On po amidarone 400, Carvedilol, Apixiban, Lasix CXR shows AICD, pulmonary congestion, enlarged heart Sepsis Event Evaluation Height, Weight, BMI Height: 6'2.00" Weight: 225lbs. 15.0oz. 102.602736oh; 28.59 BMI Method:Stated Exam Exam Patient acknowledged, consented, and participated in this virtual visit which was conducted using real time audio/video Vital Signs Date Time Temp Pulse Resp B/P (MAP) Pulse Ox O2 Delivery O2 Flow Rate FiO2 03/18/21 07:51 36.2 03/18/21 05:00 81 17 90/61 95 High Flow N/C 3.00 03/18/21 04:30 81 13 86/64 98 High Flow N/C 3.00 03/18/21 04:00 High Flow N/C 3.00 03/18/21 01:00 90 03/18/21 00:16 98 High Flow N/C 3.00 03/18/21 00:07 36.4 03/18/21 00:00 High Flow N/C 3.00 03/17/21 23:00 90 16 88/64 98 High Flow N/C 3.00 03/17/21 20:44 36.5 03/17/21 20:00 High Flow N/C 3.00 03/17/21 19:30 92 29 101/73 98 High Flow N/C 3.00 03/17/21 19:12 96 High Flow N/C 3.00 03/17/21 19:00 92 03/17/21 18:00 86 40 91/62 97 High Flow N/C 3.00 03/17/21 17:00 82 48 89/65 94 High Flow N/C 3.00 03/17/21 16:21 36.7 03/17/21 16:00 85 23 92/58 91 High Flow N/C 3.00 03/17/21 15:19 High Flow N/C 3.00 03/17/21 15:00 79 31 86/62 90 High Flow N/C 3.00 03/17/21 14:00 89 13 84/66 94 High Flow N/C 3.00 03/17/21 13:00 84 03/17/21 13:00 83 27 83/58 95 High Flow N/C 3.00 03/17/21 12:29 High Flow N/C 3.00 03/17/21 12:00 89 20 92/66 85 High Flow N/C 3.00 03/17/21 12:00 36.3 03/17/21 11:00 92 20 91/66 98 High Flow N/C 3.00 03/17/21 10:00 99 35 94/75 92 High Flow N/C 3.00 03/17/21 09:00 93 24 108/79 98 High Flow N/C 3.00 I & O 03/18/21 07:00 Intake Total 1840 ml Output Total 3715 ml Balance -1875 ml Height & Weight Height: 6'2.00" Weight: 225lbs. 15.0oz. 102.202861bv; 28.59 BMI Method:Stated General Appearance: No Apparent Distress, WD/WN, Chronically ill, Other (Shah and ashen) HEENT: PERRL/EOMI, Other (dry oral mucosa) Neck: Full Range of Motion, Normal Inspection, Non Tender Respiratory: Lungs Clear, No Accessory Muscle Use, No Respiratory Distress, Decreased Breath Sounds Cardiovascular: Regular Rate, Rhythm Capillary Refill: Less Than 3 Seconds Gastrointestinal: normal bowel sounds, non tender Extremity: Normal Range of Motion, Pedal Edema (leg edema has improved), Swelling (3+ pitting edema bilateral lower extremities) Neurologic/Psychiatric: Alert, Oriented x3, No Motor/Sensory Deficits, Normal Mood/Affect Skin: Warm/Dry, Pallor Results Lab Laboratory Tests 03/17/21 04:59 03/18/21 05:05 03/18/21 08:05 Assessment/Plan Assessment/Plan Hypotension/ shock - due to aggressive diuresis and volume loss - OFF LEVO Acute on chronic systolic congestive heart failure - as per cards Acute resp insufficiency - on 3 L O2 - monitor HOME LEVEL CAD, ICM - s/p stenting -LVEF 30-35%. Severely dilated RV. LA and RA mod dilated. Mod MR. Mod to severe TR. PASP 39 mmHg NSVT on 03/10/21, s/p AICD and pacer - asymptomatic. ICD interrogated on 03/11/21 and found to be functioning normally - amiodarone added to regimen on 03/10/21 Recurrent PE - Persistent DENG PE , NEW LLL segmental PE by CTA 03-09-21 -no evidence of right heart strain - No DVT on venous doppler of 03-10-21- - ELIQUIS 5 bid Hemoptysis, likely due to pulm embolism - resolved , follow onEliquis Hyponatremia -mild , monitor Right-sided pleural effusion probably due to congestive heart failure - follow Also dropping SpO2 during sleep, probably has MERY, would keep on BiPAP / during sleep As OP would test for MERY, Patient to go to floor Critical Care: Critically Ill Patient Time spent with patient (mins): 25 KULWANT VEGA MD Mar 18, 2021 08:42
--- NOTE | 2021-03-18 10:27 | Progress Note - Hospitalist ---
Subjective HPI/CC On Admission Date Seen by Provider: Mar 18, 2021 Time Seen by Provider: 10:30 Chief complaint: Shortness of breath History of present illness: This is a 50-year-old white male known to this hospital service due to multiple hospital stays historically for illicit drug use meth use causing severe cardiac issues who is withheld from illicit drug use for the last 2 months but suffered Covid pneumonia and not fully recovered maintained on home oxygen supplementation who presents to the ER with shortness of breath and lower extremity edema. He appears to be more declined every time I admit him. He appears 20 years older than stated age. He reports that he really needs the valvular heart surgery but it appears he is not a surgical candidate due to the poor reserve he has and other psychosocial issues that make rehabilitation a minimal success. Dr. Brantley has been consulted and he remains tachycardic. 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 Had a long conversation with him and we cannot use CPR and intubation as a treatment Suggest go down to 4th floor and supportive care and keep him comfortable and he may be able to stabilize but likely will continue to decline and go into cardiac arrest Review of Systems General: Fatigue Pulmonary: Dyspnea Objective Exam Vital Signs Vital Signs Date Time Temp Pulse Resp B/P (MAP) Pulse Ox O2 Delivery O2 Flow Rate FiO2 03/19/21 00:04 93 95/69 98 High Flow N/C 5.00 03/18/21 20:00 36.6 36 Capillary Refill : Less Than 3 Seconds General Appearance: No Apparent Distress, WD/WN, Chronically ill Respiratory: No Accessory Muscle Use, No Respiratory Distress, Decreased Breath Sounds Cardiovascular: Regular Rate, Rhythm Neurologic/Psychiatric: Alert, Oriented x3, Depressed Affect Results/Procedures Lab Laboratory Tests 03/18/21 05:05 03/18/21 08:05 Patient resulted labs reviewed. Assessment/Plan Assessment and Plan Assess & Plan/Chief Complaint Assessment: Acute on chronic congestive heart failure systolic type Hypotension requiring ICU transfer on 03/13/2021 Valvular heart disease Wide-complex tachycardia digoxin started Poor prognosis Plan: ICU Pressor therapy PICC line 03/14/2021: Supportive care Poor prognosis 03/15/2021: It appears he realizes that he is at the end of his life 03/16/2021: Supportive care Prognosis guarded 03/17/2021: Supportive care Wean Levophed Poor prognosis 03/18/2021: Moved to fourth floor DNR Comfort care meds Critical Care Critically Ill Patient Diagnosis/Problems Diagnosis/Problems (1) Acute exacerbation of CHF (congestive heart failure) Status: Acute Qualifiers: Heart failure type: combined systolic and diastolic Qualified Codes: I50.43 - Acute on chronic combined systolic (congestive) and diastolic (congestive) heart failure (2) Leg swelling Status: Acute Clinical Quality Measures Smoking Cessation Counseling: Counseling-Symptomatic: 3-10 Minutes Discussed Options Including: Group/Indiv Counseling SOFIA HANKINS DO Mar 18, 2021 10:27
[2021-03-18] MEDS ORDERED: morphine INJ 10 MG/ML 1ML (SYR OR VIAL) IVP PRN (13:45)
--- NOTE | 2021-03-18 13:48 | Progress Note - Cardiology ---
Cardiology SOAP Progress Note Subjective: Shortness of breath is better Gen malaise present No n/v/d No cp or palp or syncope Ankle swelling has improved Objective: I&O/Vital Signs 03/18/21 03/18/21 03/18/21 03/18/21 04:00 04:30 05:00 07:00 Pulse 81 81 86 Resp 13 17 B/P (MAP) 86/64 90/61 Pulse Ox 98 95 O2 Delivery High Flow N/C High Flow N/C High Flow N/C O2 Flow Rate 3.00 3.00 3.00 03/18/21 03/18/21 03/18/21 03/18/21 07:15 07:51 08:36 11:14 Temp 36.2 Pulse 90 O2 Delivery High Flow N/C High Flow N/C O2 Flow Rate 3.00 3.00 03/18/21 00:00 Intake Total 1030 ml Output Total 1900 ml Balance -870 ml Weight (Pounds): 225 Weight (Ounces): 15.0 Weight (Calculated Kilograms): 102.692908 Constitutional: AAO x 3, well-developed, well-nourished Respiratory: No accessory muscle use, No respiratory distress; chest expansion is symmetric, chest is bilaterally symmetric, other (diminished lower lobes bilat; prolonged exp phase) Cardiovascular: regular rate-rhythm, systolic murmur Gastrointestional: No tender; round Extremities: significant edema (bilat LE 2+ edema) Neurologic/Psychiatric: oriented x 3, other (moves all limbs equally) Skin: other (dry, flaky skin) Results/Procedures: Labs Laboratory Tests 03/18/21 05:05: White Blood Count 13.1H, Red Blood Count 3.91L, Hemoglobin 10.9L, Hematocrit 36L , Mean Corpuscular Volume 91, Mean Corpuscular Hemoglobin 28, Mean Corpuscular Hemoglobin Concent 31L, Red Cell Distribution Width 20.0H, Platelet Count 286, Mean Platelet Volume 9.4, Immature Granulocyte % (Auto) 4, Neutrophils (%) (Auto) 73, Lymphocytes (%) (Auto) 13, Monocytes (%) (Auto) 9, Eosinophils (%) (Auto) 1, Basophils (%) (Auto) 1, Neutrophils # (Auto) 9.6H, Lymphocytes # (Auto) 1.7, Monocytes # (Auto) 1.2H, Eosinophils # (Auto) 0.1, Basophils # (Auto) 0.1, Immature Granulocyte # (Auto) 0.5H, Sodium Level 132L, Potassium Level 5.3H, Chloride Level 98, Carbon Dioxide Level 23, Anion Gap 11, Blood Urea Nitrogen 19H, Creatinine 0.82, Estimat Glomerular Filtration Rate 99, BUN /Creatinine Ratio 23, Glucose Level 111H, Calcium Level 8.7, Corrected Calcium 9.8, Phosphorus Level 3.7, Magnesium Level 2.0, Total Bilirubin 1.8H, Aspartate Amino Transf (AST/SGOT) 49H, Alanine Aminotransferase (ALT/SGPT) 43, Alkaline Phosphatase 194H, Total Protein 6.5, Albumin 2.6L 03/18/21 08:05: Potassium Level 4.4 Microbiology 03/13/21 MRSA Screen - Final, Complete MRSA not isolated Laboratory Tests 03/17/21 04:59 03/18/21 05:05 03/18/21 08:05 A/P: Assessment: Hypotension, now improved Episode of NSVT on 03/10/21 - asymptomatic. ICD interrogated on 03/11/21 and found to be functioning normally - amiodarone added to regimen on 03/10/21 (received IV load, now on oral) Acute on chronic systolic CHF - improving A fib/flutter with RVR - rate improved Hemoptysis, likely due to pulm embolism - medical services managing Recurrent Pulmonary Emboli - Persistent left upper lobe pulmonary embolism with new left lower lobe segmental pulmonary emboli. No right-sided emboli are seen. There is no evidence of right heart strain. Per CTA of the chest on 03-09-21 - No evidence of DVT on venous doppler of 03-10-21 CAD: - H/o [place] in late Jan 2019 (see below) - Card cath on 02/01/19: Coronary artery disease consisting of complete ostial occlusion of the left anterior descending artery to which successful percutaneous coronary intervention was carried out. Following deployment of Alpine Xience 2.75 x 18 mm stent, there is no significant residual stenosis. A large obtuse marginal of the left circumflex shows 80% bifurcation stenosis in its distal portion. Right coronary artery is dominant and has mild disease. Elevated left ventricular end-diastolic pressure. Well preserved global left ventricular systolic function with ejection fraction approximately 55%. - Repeat intervention on 02-07-[address] Almaraz: balloon angioplasty to the ostium and proximal LAD with slow flow in the LAD with reestablishment of flow and good results. Mild disease in the circumflex and right coronary artery Dilated left ventricle with anterior wall hypokinesia to akinesia, estimated ejection fraction 30% - Last cardiac cath by Dr Almaraz on 09/17/20: Moderate to severe proximal and mid LAD, severe mid vessel disease of an OM, distal LAD fistula to the venous system / RV, dilated left ventricle with diffuse left ventricular hypokinesia ejection fraction 30% Ischemic cardiomyopathy. - Echo on 02/04/19: LVEF 40-45%, anteroseptal hypokinesis, mild conc LVH, RVSP 20 mmHg. LVEF 30% on cardiac cath of 02-07-19. - Echo of May 25, 2019 showed LVEF 30-35% - s/p single chamber ICD for SCD prophylaxis in October 2019, functioning normally o n interrogation of 03/11/21 - Echo of 12-08-20 showed LVEF 35-40%, mod to severe MR; mod TR; PASP 40-45 mmHg - Echo of 03-08-[address] Brantley showed LVEF 30-35%. Severely dilated RV. LA and RA mod dilated. Mod MR. Mod to severe TR. PASP 39 mmHg Transferred for consideration of CABG and repair of AV fistula and MV by Dr Almaraz to [facility] in September 2020. Not found to be a suitable candidate for any surgery due to continuing methamphetamine abuse Hyperlipidemia, by hx Tobaccoism, educated on smoking cessation (reports no usage in a month or two) Continued methamphetamine use - cessation advised (reports no usage in a month or two) Continued marijuana use - cessation advised (reports no usage in a month or two) H/o noncompliance with medications and f/u Plan: Continue oral furosemide Has previously had a CV surg consult for consideration of cor bypass / fistula closure. Was not found to be a suitable candidate. Will check with the CV surg again Monitor labs closely Clinical Quality Measures Smoking Cessation Counseling: Counseling-Symptomatic: 3-10 Minutes Discussed Options Including: Group/Indiv Counseling ALETHEA ALMAZAN MD FACP [facility] Mar 18, 2021 13:48
[2021-03-18] MEDS: LORazepam INJ 2 MG/ML (ATIVAN) VIAL IVP PRN (13:51)
--- NOTE | 2021-03-18 15:35 | Physical Therapy Progress Note ---
Therapy Progress Note Patient refused treatment. Will Attempt again tomorrow as time permits. LYDIA PEREA PT Mar 18, 2021 15:35
[2021-03-19] MEDS: KCL 20 MEQ TAB (K-DUR) PO SCH (06:11)
[2021-03-19] MEDS: CATHETER FLUSH 10 ML SYR IV SCH ×3 (06:11→22:56)
[2021-03-19] MEDS: ROSUVASTATIN 20 MG (CRESTOR) TABLET PO SCH ×2 (07:44→08:53)
[2021-03-19] MEDS: APIXABAN 5 MG (ELIQUIS) TABLET PO SCH ×2 (08:53→19:34)
[2021-03-19] MEDS: DIGOXIN 0.25 MG (LANOXIN) TAB PO SCH (08:53)
[2021-03-19] MEDS: FUROSEMIDE 40 MG/4 ML INJ (LASIX) IVP SCH (08:53)
[2021-03-19] MEDS: ASPIRIN 81 MG CHEW (CHILDREN'S ASA) PO SCH (08:53)
[2021-03-19] MEDS: PRASUGREL 10 MG (EFFIENT) TABLET PO SCH (08:53)
[2021-03-19] MEDS: ASPIRIN E.C. 81 MG (ECOTRIN) TAB PO SCH (08:54)
[2021-03-19] MEDS: AMIODARONE 200 MG (CORDARONE) TAB PO SCH ×2 (08:54→19:34)
--- NOTE | 2021-03-19 09:25 | Physical Therapy Progress Note ---
Therapy Progress Note Due to patient's decline in status, PT to dismiss patient from services. RN notified. WILL TROY PT Mar 19, 2021 09:25
--- NOTE | 2021-03-19 10:52 | Progress Note - Hospitalist ---
Subjective HPI/CC On Admission Date Seen by Provider: Mar 19, 2021 Time Seen by Provider: 11:00 Chief complaint: Shortness of breath History of present illness: This is a 50-year-old white male known to this hospital service due to multiple hospital stays historically for illicit drug use meth use causing severe cardiac issues who is withheld from illicit drug use for the last 2 months but suffered Covid pneumonia and not fully recovered maintained on home oxygen supplementation who presents to the ER with shortness of breath and lower extremity edema. He appears to be more declined every time I admit him. He appears 20 years older than stated age. He reports that he really needs the valvular heart surgery but it appears he is not a surgical candidate due to the poor reserve he has and other psychosocial issues that make rehabilitation a minimal success. Dr. Brantley has been consulted and he remains tachycardic. Subjective/Events-last exam Patient remains in ICU Dr. Luna thinks he can get a little better to be able to be a candidate for valvular heart disease He will have to be well enough to discharge Hypertension still continues Dr. Luna to manage Comfort care protocol recommended by this examiner Review of Systems General: Fatigue Pulmonary: Dyspnea Objective Exam Vital Signs Vital Signs Date Time Temp Pulse Resp B/P (MAP) Pulse Ox O2 Delivery O2 Flow Rate FiO2 03/19/21 20:55 High Flow N/C 8.00 03/19/21 19:47 36.2 03/19/21 16:00 80 12 95/78 100 Capillary Refill : Less Than 3 Seconds General Appearance: Other (Shah and ashen) Respiratory: No Accessory Muscle Use, No Respiratory Distress, Decreased Breath Sounds Cardiovascular: Regular Rate, Rhythm Neurologic/Psychiatric: Alert, Oriented x3, Depressed Affect Results/Procedures Lab Patient resulted labs reviewed. Assessment/Plan Assessment and Plan Assess & Plan/Chief Complaint Assessment: Acute on chronic congestive heart failure systolic type Hypotension requiring ICU transfer on 03/13/2021 Valvular heart disease Wide-complex tachycardia digoxin started Poor prognosis Plan: ICU Pressor therapy PICC line 03/14/2021: Supportive care Poor prognosis 03/15/2021: It appears he realizes that he is at the end of his life 03/16/2021: Supportive care Prognosis guarded 03/17/2021: Supportive care Wean Levophed Poor prognosis 03/18/2021: Moved to fourth floor DNR Comfort care meds 03/19/2021: Patient remains in ICU Dr. 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
[2021-03-19] MEDS ORDERED: NS IV 1000 ML 1,000 ML ONE (14:57)
--- NOTE | 2021-03-19 15:13 | Progress Note - Cardiology ---
Cardiology SOAP Progress Note Subjective: Feels better this am Gen weakness and malaise No cp or palp or syncope No shortness of breath at rest No n/v/d Objective: I&O/Vital Signs 03/19/21 03/19/21 03/19/21 03/19/21 04:00 07:53 08:00 08:00 Temp 36.6 Pulse 82 B/P (MAP) 91/61 108/74 Pulse Ox 93 89 O2 Delivery High Flow N/C High Flow N/C High Flow N/C O2 Flow Rate 5.00 5.00 5.00 03/19/21 03/19/21 03/19/21 03/19/21 10:59 11:00 12:00 12:15 Temp 35.7 Pulse 84 77 Resp 13 15 B/P (MAP) 95/67 87/64 Pulse Ox 95 97 99 O2 Delivery High Flow N/C High Flow N/C High Flow N/C O2 Flow Rate 5.00 5.00 5.00 03/19/21 00:00 Intake Total 450 ml Output Total 800 ml Balance -350 ml Weight (Pounds): 225 Weight (Ounces): 15.0 Weight (Calculated Kilograms): 102.856203 Constitutional: AAO x 3, well-developed, well-nourished Respiratory: No accessory muscle use, No respiratory distress; chest expansion is symmetric, chest is bilaterally symmetric, other (diminished lower lobes bilat; prolonged exp phase) Cardiovascular: regular rate-rhythm, systolic murmur Gastrointestional: No tender; round Extremities: significant edema (bilat LE 2+ edema) Neurologic/Psychiatric: oriented x 3, other (moves all limbs equally) Skin: other (dry, flaky skin) Results/Procedures: Labs Microbiology 03/13/21 MRSA Screen - Final, Complete MRSA not isolated Laboratory Tests 03/18/21 05:05 03/18/21 08:05 A/P: Assessment: Hypotension, intermittent, probably partially related to volume depletion and partially to cardiomyopathy Episode of NSVT on 03/10/21 - asymptomatic. ICD interrogated on 03/11/21 and found to be functioning normally - amiodarone added to regimen on 03/10/21 (received IV load, now on oral) Acute on chronic systolic CHF - improving A fib/flutter with RVR - rate improved Hemoptysis, likely due to pulm embolism - medical services managing Recurrent Pulmonary Emboli - Persistent left upper lobe pulmonary embolism with new left lower lobe segmental pulmonary emboli. No right-sided emboli are seen. There is no evidence of right heart strain. Per CTA of the chest on 03-09-21 - No evidence of DVT on venous doppler of 03-10-21 CAD: - H/o CT in late Jan 2019 (see below) - Card cath on 02/01/19: Coronary artery disease consisting of complete ostial occlusion of the left anterior descending artery to which successful percutaneous coronary intervention was carried out. Following deployment of A ChupaMobileine Xience 2.75 x 18 mm stent, there is no significant residual stenosis. A large obtuse marginal of the left circumflex shows 80% bifurcation stenosis in its distal portion. Right coronary artery is dominant and has mild disease. Elevated left ventricular end-diastolic pressure. Well preserved global left ventricular systolic function with ejection fraction approximately 55%. - Repeat intervention on 02-07-[address] Almaraz: balloon angioplasty to the ostium and proximal LAD with slow flow in the LAD with reestablishment of flow and good results. Mild disease in the circumflex and right coronary artery Dilated left ventricle with anterior wall hypokinesia to akinesia, estimated ejection f raction 30% - Last cardiac cath by Dr Almaraz on 09/17/20: Moderate to severe proximal and mid LAD, severe mid vessel disease of an OM, distal LAD fistula to the venous system / RV, dilated left ventricle with diffuse left ventricular hypokinesia ejection fraction 30% Ischemic cardiomyopathy. - Echo on 02/04/19: LVEF 40-45%, anteroseptal hypokinesis, mild conc LVH, RVSP 20 mmHg. LVEF 30% on cardiac cath of 02-07-19. - Echo of May 25, 2019 showed LVEF 30-35% - s/p single chamber ICD for SCD prophylaxis in October 2019, functioning normally on interrogation of 03/11/21 - Echo of 12-08-20 showed LVEF 35-40%, mod to severe MR; mod TR; PASP 40-45 mmHg - Echo of 03-08-[address] Brantley showed LVEF 30-35%. Severely dilated RV. LA and RA mod dilated. Mod MR. Mod to severe TR. PASP 39 mmHg Transferred for consideration of CABG and repair of AV fistula and MV by Dr Almaraz to [facility] in September 2020. Not found to be a suitable candidate for any surgery due to continuing methamphetamine abuse Hyperlipidemia, by hx Tobaccoism, educated on smoking cessation (reports no usage in a month or two) Continued methamphetamine use - cessation advised (reports no usage in a month or two) Continued marijuana use - cessation advised (reports no usage in a month or two) H/o noncompliance with medications and f/u Plan: iv fluids for hypotension Continue oral furosemide Has previously had a CV surg consult for consideration of cor bypass / fistula closure. Was not found to be a suitable candidate. I called Dr Hendricks of CV surg service at [facility] and discussed the case with him. Dr Donnelly will review the data again to render an opinion Monitor labs closely Clinical Quality Measures Smoking Cessation Counseling: Counseling-Symptomatic: 3-10 Minutes Discussed Options Including: Group/Indiv Counseling ALETHEA ALMAZAN MD FACP [facility] Mar 19, 2021 15:12
[2021-03-19] MEDS: NS IV 1000 ML 1,000 ML IV SCH (15:18)
[2021-03-19] MEDS: RT-ALBUTEROL/IPRATROPIUM 3 ML (DUONEB) VIAL INH PRN (15:54)
[2021-03-20] MEDS: NS IV 1000 ML 1,000 ML IV SCH ×3 (01:47→21:11)
[2021-03-20] MEDS: KCL 20 MEQ TAB (K-DUR) PO SCH (05:43)
[2021-03-20] MEDS: PROMETHAZINE/ CODEINE SYRUP 5 ML UDC PO PRN ×3 (05:43→14:24)
[2021-03-20] MEDS: CATHETER FLUSH 10 ML SYR IV SCH ×3 (06:03→21:12)
[2021-03-20] MEDS: PRASUGREL 10 MG (EFFIENT) TABLET PO SCH (08:14)
[2021-03-20] MEDS: AMIODARONE 200 MG (CORDARONE) TAB PO SCH ×2 (08:14→21:11)
[2021-03-20] MEDS: FUROSEMIDE 40 MG/4 ML INJ (LASIX) IVP SCH (08:14)
[2021-03-20] MEDS: ROSUVASTATIN 20 MG (CRESTOR) TABLET PO SCH ×2 (08:14→08:15)
[2021-03-20] MEDS: DIGOXIN 0.25 MG (LANOXIN) TAB PO SCH (08:14)
[2021-03-20] MEDS: APIXABAN 5 MG (ELIQUIS) TABLET PO SCH ×2 (08:14→21:11)
[2021-03-20] MEDS: ASPIRIN 81 MG CHEW (CHILDREN'S ASA) PO SCH (08:14)
[2021-03-20] MEDS: ASPIRIN E.C. 81 MG (ECOTRIN) TAB PO SCH (08:15)
--- NOTE | 2021-03-20 09:37 | Progress Note - Cardiology ---
Cardiology SOAP Progress Note Subjective: Sitting up in bed Tearful this morning, expressing regret for past life choices States he does not want to Offered comfort No c/o CP this morning Occ non-productive cough Malaise Objective: I&O/Vital Signs 03/22/21 03/23/21 03/23/21 03/23/21 22:52 00:07 07:23 07:30 Temp 36.4 Pulse 75 Resp 18 B/P (MAP) 109/72 Pulse Ox 94 94 94 O2 Delivery High Flow N/C High Flow N/C Nasal Cannula Nasal Cannula O2 Flow Rate 5.00 3.00 3.00 3.00 03/23/21 08:34 Temp 36.4 Pulse 81 Resp 20 B/P (MAP) 103/65 Pulse Ox 97 O2 Delivery High Flow N/C O2 Flow Rate 3.00 03/22/21 23:59 Intake Total 820 ml Output Total 1575 ml Balance -755 ml Weight (Pounds): 225 Weight (Ounces): 15.0 Weight (Calculated Kilograms): 102.849959 Constitutional: AAO x 3, well-developed, well-nourished Respiratory: No accessory muscle use, No respiratory distress; chest expansion is symmetric, chest is bilaterally symmetric, other (diminished lower lobes bilat; prolonged exp phase) Cardiovascular: regular rate-rhythm, systolic murmur Gastrointestional: No tender; round Extremities: significant edema (bilat LE 2+ edema) Neurologic/Psychiatric: oriented x 3, other (moves all limbs equally) Skin: other (dry, flaky skin) Results/Procedures: Labs Microbiology 03/13/21 MRSA Screen - Final, Complete MRSA not isolated A/P: Assessment: Hypotension, intermittent, probably partially related to volume depletion and partially to cardiomyopathy Episode of NSVT on 03/10/21 - asymptomatic. ICD interrogated on 03/11/21 and found to be functioning normally - amiodarone added to regimen on 03/10/21 (received IV load, now on oral) Acute on chronic systolic CHF - improving A fib/flutter with RVR - rate improved Hemoptysis, likely due to pulm embolism - medical services managing Recurrent Pulmonary Emboli - Persistent left upper lobe pulmonary embolism with new left lower lobe segmental pulmonary emboli. No right-sided emboli are seen. There is no evidence of right heart strain. Per CTA of the chest on 03-09-21 - No evidence of DVT on venous doppler of 03-10-21 CAD: - H/o [place] in late Jan 2019 (see below) - Card cath on 02/01/19: Coronary artery disease consisting of complete ostial occlusion of the left anterior descending artery to which successful percutaneous coronary intervention was carried out. Following deployment of Alpine Xience 2.75 x 18 mm stent, there is no significant residual stenosis. A large obtuse marginal of the left circumflex shows 80% bifurcation stenosis in its distal portion. Right coronary artery is dominant and has mild disease. Elevated left ventricular end-diastolic pressure. Well preserved global left ventricular systolic function with ejection fraction approximately 55%. - Repeat intervention on 02-07-[address] Almaraz: balloon angioplasty to the ostium and proximal LAD with slow flow in the LAD with reestablishment of flow and good results. Mild disease in the circumflex and right coronary artery Dilated left ventricle with anterior wall hypokinesia to akinesia, estimated ejection fraction 30% - Last cardiac cath by Dr Almaraz on 09/17/20: Moderate to severe proximal and mid LAD, severe mid vessel disease of an OM, distal LAD fistula to the venous system / RV, dilated left ventricle with diffuse left ventricular hypokinesia ejection fraction 30% Ischemic cardiomyopathy. - Echo on 02/04/19: LVEF 40-45%, anteroseptal hypokinesis, mild conc LVH, RVSP 20 mmHg. LVEF 30% on cardiac cath of 02-07-19. - Echo of May 25, 2019 showed LVEF 30-35% - s/p single chamber ICD for SCD prophylaxis in October 2019, functioning normally on interrogation of 03/11/21 - Echo of 12-08-20 showed LVEF 35-40%, mod to severe MR; mod TR; PASP 40-45 mmHg - Echo of 03-08-[address] Brantley showed LVEF 30-35%. Severely dilated RV. LA and RA mod dilated. Mod MR. Mod to severe TR. PASP 39 mmHg Transferred for consideration of CABG and repair of AV fistula and MV by Dr Almaraz to [facility] in September 2020. Not found to be a suitable candidate for any surgery due to continuing methamphetamine abuse Hyperlipidemia, by hx Tobaccoism, educated on smoking cessation (reports no usage in a month or two) Continued methamphetamine use - cessation advised (reports no usage in a month or two) Continued marijuana use - cessation advised (reports no usage in a month or two) H/o noncompliance with medications and f/u Plan: iv fluids for hypotension Change to oral furosemide Has previously had a CV surg consult for consideration of cor bypass / fistula closure. Was not found to be a suitable candidate. I called Dr Henrdicks of CV surg service at [facility] and discussed the case with him. Dr Donnelly will review the data again to render an opinion - awaiting call back from Dr. Donnelly Monitor labs closely Check digoxin level Clinical Quality Measures Smoking Cessation Counseling: Counseling-Symptomatic: 3-10 Minutes Discussed Options Including: Group/Indiv Counseling MARGARITO IBANEZ Mar 20, 2021 09:37
[2021-03-20 10:07] LABS: ALBUMIN 2.7 GM/DL (3.2-4.5)
[2021-03-20 10:08] LABS: POTASSIUM 4.1 MMOL/L (3.6-5.0)
[2021-03-20 10:09] LABS: CALCIUM 8.6 MG/DL (8.5-10.1)
[2021-03-20 10:10] LABS: TOTAL PROTEIN 6.7 GM/DL (6.4-8.2)
[2021-03-20 10:12] LABS: BILIRUBIN,TOTAL 1.4 MG/DL (0.1-1.0)
[2021-03-20 10:14] LABS: CREATININE SERUM 0.78 MG/DL (0.60-1.30)
[2021-03-20 10:16] LABS: MAGNESIUM 1.9 MG/DL (1.6-2.4)
--- NOTE | 2021-03-20 16:50 | Progress Note - Cardiology ---
Cardiology SOAP Progress Note Subjective: Short of breath with mild activity No cp or palp or syncope Gen malaise and weakness No n/v/d Objective: I&O/Vital Signs 03/20/21 03/20/21 03/20/21 03/20/21 08:00 08:00 08:11 11:43 Temp 36.5 36.5 Pulse 80 Resp 17 B/P (MAP) 106/73 Pulse Ox 98 O2 Delivery High Flow N/C High Flow N/C O2 Flow Rate 8.00 8.00 03/20/21 03/20/21 03/20/21 03/20/21 12:00 15:18 16:00 16:03 Temp 36.1 Pulse 68 73 Resp 20 35 B/P (MAP) 97/78 Pulse Ox 100 98 96 O2 Delivery High Flow N/C High Flow N/C High Flow N/C O2 Flow Rate 8.00 8.00 8.00 03/20/21 00:00 Intake Total 360 ml Output Total 675 ml Balance -315 ml Weight (Pounds): 225 Weight (Ounces): 15.0 Weight (Calculated Kilograms): 102.451050 Constitutional: AAO x 3, well-developed, well-nourished Respiratory: No accessory muscle use, No respiratory distress; chest expansion is symmetric, chest is bilaterally symmetric, other (diminished lower lobes bilat; prolonged exp phase) Cardiovascular: regular rate-rhythm, systolic murmur Gastrointestional: No tender; round Extremities: significant edema (bilat LE 2+ edema) Neurologic/Psychiatric: oriented x 3, other (moves all limbs equally) Skin: other (dry, flaky skin) Results/Procedures: Labs Laboratory Tests 03/20/21 09:50: Sodium Level 134L, Potassium Level 4.1, Chloride Level 99, Carbon Dioxide Level 24, Anion Gap 11, Blood Urea Nitrogen 23H, Creatinine 0.78, Estimat Glomerular Filtration Rate 105, BUN/Creatinine Ratio 29, Glucose Level 159H, Calcium Level 8.6, Corrected Calcium 9.6, Magnesium Level 1.9, Total Bilirubin 1.4H, Aspartate Amino Transf (AST/SGOT) 78H, Alanine Aminotransferase (ALT/SGPT) 48, Alkaline Phosphatase 182H, Total Protein 6.7, Albumin 2.7L, Digoxin Level 0.88 Microbiology 03/13/21 MRSA Screen - Final, Complete MRSA not isolated A/P: Assessment: Hypotension, intermittent, probably partially related to volume depletion and partially to cardiomyopathy Episode of NSVT on 03/10/21 - asymptomatic. ICD interrogated on 03/11/21 and found to be functioning normally - amiodarone added to regimen on 03/10/21 (received IV load, now on oral) Acute on chronic systolic CHF - improving A fib/flutter with RVR - rate improved Hemoptysis, likely due to pulm embolism - medical services managing Recurrent Pulmonary Emboli - Persistent left upper lobe pulmonary embolism with new left lower lobe segmental pulmonary emboli. No right-sided emboli are seen. There is no evidence of right heart strain. Per CTA of the chest on 03-09-21 - No evidence of DVT on venous doppler of 03-10-21 CAD: - H/o [place] in late Jan 2019 (see below) - Card cath on 02/01/19: Coronary artery disease consisting of complete ostial occlusion of the left anterior descending artery to which successful percutaneous coronary intervention was carried out. Following deployment of Alpine Xience 2.75 x 18 mm stent, there is no significant residual stenosis. A large obtuse marginal of the left circumflex shows 80% bifurcation stenosis in its distal portion. Right coronary artery is dominant and has mild disease. Elevated left ventricular end-diastolic pressure. Well preserved global left ventricular systolic function with ejection fraction approximately 55%. - Repeat intervention on 02-07-[address] Alamraz: balloon angioplasty to the ostium and proximal LAD with slow flow in the LAD with reestablishment of flow and good results. Mild disease in the circumflex and right coronary artery Dilated left ventricle with anterior wall hypokinesia to akinesia, estimated ejection fraction 30% - Last cardiac cath by Dr Almaraz on 09/17/20: Moderate to severe proximal and mid LAD, severe mid vessel disease of an OM, distal LAD fistula to the venous system / RV, dilated left ventricle with diffuse left ventricular hypokinesia ejection fraction 30% Ischemic cardiomyopathy. - Echo on 02/04/19: LVEF 40-45%, anteroseptal hypokinesis, mild conc LVH, RVSP 20 mmHg. LVEF 30% on cardiac cath of 02-07-19. - Echo of May 25, 2019 showed LVEF 30-35% - s/p single chamber ICD for SCD prophylaxis in October 2019, functioning normally on interrogation of 03/11/21 - Echo of 12-08-20 showed LVEF 35-40%, mod to severe MR; mod TR; PASP 40-45 mmHg - Echo of 03-08-[address] Brantley showed LVEF 30-35%. Severely dilated RV. LA and RA mod dilated. Mod MR. Mod to severe TR. PASP 39 mmHg Transferred for consideration of CABG and repair of AV fistula and MV by Dr Almaraz to [facility] in September 2020. Not found to be a suitable candidate for any surgery due to continuing methamphetamine abuse Hyperlipidemia, by hx Tobaccoism, educated on smoking cessation (reports no usage in a month or two) Continued methamphetamine use - cessation advised (reports no usage in a month or two) Continued marijuana use - cessation advised (reports no usage in a month or two) H/o noncompliance with medications and f/u Plan: I have spoken with Dr Donnelly of CV Surg at [facility]. Dr Donnelly is not sure if surgery would be of any benefit to the patient. He is willing to see him as an outpt at his next clinic on 03/24/21. I relayed that to Mr Renteria. We will attempt to have him discharged from the hospital by then His prognosis does not appear good. Hospice seems to be a reasonable option. I answered Mr Renteria's questions about that Currently on prasugrel + ASA + apixaban. This significantly increases his risk for bleeding. He has not had any recent coronary stenting. Therefore it appears reasonable to d/c Prasugrel at this time while continuing ASA and apixaban Monitor labs Clinical Quality Measures Smoking Cessation Counseling: Counseling-Symptomatic: 3-10 Minutes Discussed Options Including: Group/Indiv Counseling ALETHEA ALMAZAN MD FACP [facility] Mar 20, 2021 16:50
--- NOTE | 2021-03-20 17:11 | Progress Note - Hospitalist ---
Subjective HPI/CC On Admission Date Seen by Provider: Mar 20, 2021 Time Seen by Provider: 10:10 Chief complaint: Shortness of breath History of present illness: This is a 50-year-old white male known to this hospital service due to multiple hospital stays historically for illicit drug use meth use causing severe cardiac issues who is withheld from illicit drug use for the last 2 months but suffered Covid pneumonia and not fully recovered maintained on home oxygen supplementation who presents to the ER with shortness of breath and lower extremity edema. He appears to be more declined every time I admit him. He appears 20 years older than stated age. He reports that he really needs the valvular heart surgery but it appears he is not a surgical candidate due to the poor reserve he has and other psychosocial issues that make rehabilitation a minimal success. Dr. Brantley has been consulted and he remains tachycardic. Subjective/Events-last exam He is feeling ok. He is not short of breath. He does not want me to turn his oxygen down. Objective Exam Vital Signs Vital Signs Date Time Temp Pulse Resp B/P (MAP) Pulse Ox O2 Delivery O2 Flow Rate FiO2 03/20/21 16:03 36.1 03/20/21 16:00 73 35 97/78 96 High Flow N/C 8.00 Capillary Refill : Less Than 3 Seconds General Appearance: No Apparent Distress, Chronically ill Respiratory: No Respiratory Distress, Crackles Cardiovascular: Regular Rate, Rhythm, Systolic Murmur Gastrointestinal: Normal Bowel Sounds, Non Tender, Soft Extremity: Normal Inspection, Non Tender, No Pedal Edema Neurologic/Psychiatric: Alert, Oriented x3, Motor Weakness Skin: Normal Color, Warm/Dry Results/Procedures Lab Laboratory Tests 03/20/21 09:50 Patient resulted labs reviewed. Imaging: Reviewed Imaging Report Assessment/Plan Assessment and Plan Assess & Plan/Chief Complaint Cardiogenic shock Valvular heart disease Multivessel CAD Atrial fibrillation Ischemic cardiomyopathy HFrEF Hypertension Hyperlipidemia Nonadherence to medication regimen Poor prognosis Cardiology following Not a surgical candidate Continue current regimen Consider hospice Pulmonary embolism Eliquis Polysubstance abuse Clinically significant, currently in remission Critical Care Critically Ill Patient Diagnosis/Problems Diagnosis/Problems (1) Cardiogenic shock (2) Ischemic cardiomyopathy Status: Chronic (3) Acute heart failure with reduced ejection fraction and diastolic dysfunction Status: Acute (4) Valvular heart disease Status: Acute (5) Multiple vessel coronary artery disease Status: Chronic (6) Noncompliance with medication regimen Status: Chronic (7) Poor prognosis Status: Acute (8) Pulmonary embolism Status: Acute Qualifiers: Pulmonary embolism type: other Chronicity: chronic Acute cor pulmonale presence: without acute cor pulmonale Qualified Codes: I27.82 - Chronic pulmonary embolism (9) Polysubstance abuse Status: Chronic Clinical Quality Measures Smoking Cessation Counseling: Counseling-Symptomatic: 3-10 Minutes Discussed Options Including: Group/Indiv Counseling KIM CLAYTON MD Mar 20, 2021 17:11
[2021-03-21] MEDS: PROMETHAZINE/ CODEINE SYRUP 5 ML UDC PO PRN ×2 (00:03→23:32)
[2021-03-21] MEDS: LORazepam INJ 2 MG/ML (ATIVAN) VIAL IVP PRN ×2 (00:04→23:32)
[2021-03-21 05:12] LABS: POTASSIUM 4.3 MMOL/L (3.6-5.0)
[2021-03-21 05:13] LABS: CALCIUM 8.6 MG/DL (8.5-10.1)
[2021-03-21 05:18] LABS: CREATININE SERUM 0.7 MG/DL (0.60-1.30)
[2021-03-21 05:20] LABS: MAGNESIUM 1.8 MG/DL (1.6-2.4)
[2021-03-21] MEDS: CATHETER FLUSH 10 ML SYR IV SCH ×3 (05:39→22:59)
[2021-03-21] MEDS: KCL 20 MEQ TAB (K-DUR) PO SCH (06:24)
[2021-03-21] MEDS: NS IV 1000 ML 1,000 ML IV SCH ×2 (06:25→16:28)
[2021-03-21] MEDS: FUROSEMIDE 40 MG/4 ML INJ (LASIX) IVP SCH (09:39)
[2021-03-21] MEDS: ASPIRIN E.C. 81 MG (ECOTRIN) TAB PO SCH (09:39)
[2021-03-21] MEDS: AMIODARONE 200 MG (CORDARONE) TAB PO SCH ×2 (09:39→21:09)
[2021-03-21] MEDS: ROSUVASTATIN 20 MG (CRESTOR) TABLET PO SCH (09:39)
[2021-03-21] MEDS: APIXABAN 5 MG (ELIQUIS) TABLET PO SCH ×2 (09:39→21:09)
[2021-03-21] MEDS: DIGOXIN 0.25 MG (LANOXIN) TAB PO SCH (09:39)
[2021-03-21] MEDS ORDERED: DIGO250T15 PO (11:48)
[2021-03-21] MEDS ORDERED: AMIO200T6 PO (11:48)
[2021-03-21] MEDS ORDERED: CARV6.252 PO (11:48)
--- NOTE | 2021-03-21 13:55 | Progress Note - Hospitalist ---
Subjective HPI/CC On Admission Date Seen by Provider: Mar 21, 2021 Time Seen by Provider: 11:40 Chief complaint: Shortness of breath History of present illness: This is a 50-year-old white male known to this hospital service due to multiple hospital stays historically for illicit drug use meth use causing severe cardiac issues who is withheld from illicit drug use for the last 2 months but suffered Covid pneumonia and not fully recovered maintained on home oxygen supplementation who presents to the ER with shortness of breath and lower extremity edema. He appears to be more declined every time I admit him. He appears 20 years older than stated age. He reports that he really needs the valvular heart surgery but it appears he is not a surgical candidate due to the poor reserve he has and other psychosocial issues that make rehabilitation a minimal success. Dr. Brantley has been consulted and he remains tachycardic. Subjective/Events-last exam He is very frustrated this morning. He does not like that things are changing day by day and that his situation keeps changing as to whether or not there are treatment options available for him. He is tearful at times. He wants to follow up with Dr. Donnelly and if he does not want to go forward with surgery he would like to get a second opinion. He is not short of breath. He is anxious. He has not been sleeping well. Objective Exam Vital Signs Vital Signs Date Time Temp Pulse Resp B/P (MAP) Pulse Ox O2 Delivery O2 Flow Rate FiO2 03/21/21 11:20 36.4 76 28 101/66 98 High Flow N/C 0.50 Capillary Refill : Less Than 3 Seconds General Appearance: No Apparent Distress, Anxious, Chronically ill Respiratory: No Respiratory Distress, Decreased Breath Sounds Cardiovascular: Regular Rate, Rhythm, Systolic Murmur Gastrointestinal: Normal Bowel Sounds, Non Tender, Soft Extremity: Normal Inspection, No Pedal Edema Neurologic/Psychiatric: Alert, Other (labile mood, tearful, anxious) Skin: Warm/Dry Results/Procedures Lab Laboratory Tests 03/21/21 04:55 Patient resulted labs reviewed. Imaging: Reviewed Imaging Report Assessment/Plan Assessment and Plan Assess & Plan/Chief Complaint Valvular heart disease Multivessel CAD Atrial fibrillation Ischemic cardiomyopathy HFrEF Hypertension Hyperlipidemia Nonadherence to medication regimen Poor prognosis Cardiology following Previously deemed not a surgical candidate, Dr. Donnelly to reevaluate at outpatient visit Tuesday Patient wants second opinion if Dr. Donnelly does not believe he is a surgical candidate Continue current regimen Consider hospice if no treatment options available Pulmonary embolism Eliquis Polysubstance abuse Clinically significant, currently in remission DVT prophylaxis: already receiving therapeutic anticoagulation Cardiogenic shock, resolved Diagnosis/Problems Diagnosis/Problems (1) Cardiogenic shock Status: Resolved Resolution Date/Time: 03/21/21 @ 13:55 (2) Ischemic cardiomyopathy Status: Chronic (3) Acute heart failure with reduced ejection fraction and diastolic dysfunction Status: Acute (4) Valvular heart disease Status: Acute (5) Multiple vessel coronary artery disease Status: Chronic (6) Noncompliance with medication regimen Status: Chronic (7) Poor prognosis Status: Acute (8) Pulmonary embolism Status: Acute Qualifiers: Pulmonary embolism type: other Chronicity: chronic Acute cor pulmonale presence: without acute cor pulmonale Qualified Codes: I27.82 - Chronic pulmonary embolism (9) Polysubstance abuse Status: Chronic Clinical Quality Measures Smoking Cessation Counseling: Counseling-Symptomatic: 3-10 Minutes Discussed Options Including: Group/Indiv Counseling KIM CLAYTON MD Mar 21, 2021 13:55
--- NOTE | 2021-03-21 16:46 | Progress Note - Cardiology ---
Cardiology SOAP Progress Note Subjective: No cp or palp or syncope Shortness of breath with mod activity Mod leg swelling No n/v/d Objective: I&O/Vital Signs 03/21/21 03/21/21 03/21/21 07:55 08:00 11:20 Temp 36.6 36.4 Pulse 76 76 Resp 26 28 B/P (MAP) 103/66 101/66 Pulse Ox 97 97 98 O2 Delivery Room Air High Flow N/C High Flow N/C O2 Flow Rate 1.00 0.50 03/21/21 00:00 Intake Total 1200 ml Output Total 1050 ml Balance 150 ml Weight (Pounds): 225 Weight (Ounces): 15.0 Weight (Calculated Kilograms): 102.473094 Constitutional: AAO x 3, well-developed, well-nourished Respiratory: No accessory muscle use, No respiratory distress; chest expansion is symmetric, chest is bilaterally symmetric, other (diminished lower lobes bilat; prolonged exp phase) Cardiovascular: regular rate-rhythm, systolic murmur Gastrointestional: No tender; round Extremities: significant edema (bilat LE 2+ edema) Neurologic/Psychiatric: oriented x 3, other (moves all limbs equally) Skin: other (dry, flaky skin) Results/Procedures: Labs Laboratory Tests 03/21/21 04:55: Sodium Level 137, Potassium Level 4.3, Chloride Level 103, Carbon Dioxide Level 22, Anion Gap 12, Blood Urea Nitrogen 24H, Creatinine 0.70, Estimat Glomerular Filtration Rate 119, BUN/Creatinine Ratio 34, Glucose Level 89, Calcium Level 8.6, Magnesium Level 1.8 Microbiology 03/13/21 MRSA Screen - Final, Complete MRSA not isolated Laboratory Tests 03/20/21 09:50 03/21/21 04:55 A/P: Assessment: Hypotension, intermittent, probably partially related to volume depletion and partially to cardiomyopathy Episode of NSVT on 03/10/21 - asymptomatic. ICD interrogated on 03/11/21 and found to be functioning normally - amiodarone added to regimen on 03/10/21 (received IV load, now on oral) Acute on chronic systolic CHF - improving A fib/flutter with RVR - rate improved Hemoptysis, likely due to pulm embolism - medical services managing Recurrent Pulmonary Emboli - Persistent left upper lobe pulmonary embolism with new left lower lobe segmental pulmonary emboli. No right-sided emboli are seen. There is no evidence of right heart strain. Per CTA of the chest on 03-09-21 - No evidence of DVT on venous doppler of 03-10-21 CAD: - H/o [place] in late Jan 2019 (see below) - Card cath on 02/01/19: Coronary artery disease consisting of complete ostial occlusion of the left anterior descending artery to which successful percutaneous coronary intervention was carried out. Following deployment of Alpine Xience 2.75 x 18 mm stent, there is no significant residual stenosis. A large obtuse marginal of the left circumflex shows 80% bifurcation stenosis in its distal portion. Right coronary artery is dominant and has mild disease. Elevated left ventricular end-diastolic pressure. Well preserved global left ventricular systolic function with ejection fraction approximately 55%. - Repeat intervention on 02-07-[address] Almaraz: balloon angioplasty to the ostium and proximal LAD with slow flow in the LAD with reestablishment of flow and good results. Mild disease in the circumflex and right coronary artery Dilated left ventricle with anterior wall hypokinesia to akinesia, estimated ejection fraction 30% - Last cardiac cath by Dr Almaraz on 09/17/20: Moderate to severe proximal and mid LAD, severe mid vessel disease of an OM, distal LAD fistula to the venous system / RV, dilated left ventricle with diffuse left ventricular hypokinesia ejection fraction 30% Ischemic cardiomyopathy. - Echo on 02/04/19: LVEF 40-45%, anteroseptal hypokinesis, mild conc LVH, RVSP 20 mmHg. LVEF 30% on cardiac cath of 02-07-19. - Echo of May 25, 2019 showed LVEF 30-35% - s/p single chamber ICD for SCD prophylaxis in October 2019, functioning normally on interrogation of 03/11/21 - Echo of 12-08-20 showed LVEF 35-40%, mod to severe MR; mod TR; PASP 40-45 mmHg - Echo of 03-08-[address] Brantley showed LVEF 30-35%. Severely dilated RV. LA and RA mod dilated. Mod MR. Mod to severe TR. PASP 39 mmHg Transferred for consideration of CABG and repair of AV fistula and MV by Dr Almaraz to [facility] in September 2020. Not found to be a suitable candidate for any surgery due to continuing methamphetamine abuse Hyperlipidemia, by hx Tobaccoism, educated on smoking cessation (reports no usage in a month or two) Continued methamphetamine use - cessation advised (reports no usage in a month or two) Continued marijuana use - cessation advised (reports no usage in a month or two) H/o noncompliance with medications and f/u Plan: Reduce iv fluids I have spoken with Dr Donnelly of CV Surg at [facility]. Dr Donnelly is not sure if surgery would be of any benefit to the patient. He is willing to see him as an outpt at his next clinic on 03/24/21. I relayed that to Mr Renteria. We will attempt to have him discharged from the hospital by then His prognosis does not appear good. Hospice seems to be a reasonable option. I answered Mr Renteria's questions about that Had been on prasugrel + ASA + apixaban. This significantly increases his risk for bleeding. He has not had any recent coronary stenting. Therefore it appears reasonable to d/c Prasugrel at this time while continuing ASA and apixaban Monitor labs Clinical Quality Measures Smoking Cessation Counseling: Counseling-Symptomatic: 3-10 Minutes Discussed Options Including: Group/Indiv Counseling ALETHEA ALMAZAN MD FACP [facility] Mar 21, 2021 16:46
[2021-03-22] MEDS: KCL 20 MEQ TAB (K-DUR) PO SCH (06:29)
[2021-03-22] MEDS: CATHETER FLUSH 10 ML SYR IV SCH ×3 (06:29→22:44)
[2021-03-22] MEDS: FUROSEMIDE 40 MG/4 ML INJ (LASIX) IVP SCH (08:22)
[2021-03-22] MEDS: DIGOXIN 0.25 MG (LANOXIN) TAB PO SCH (08:23)
[2021-03-22] MEDS: APIXABAN 5 MG (ELIQUIS) TABLET PO SCH ×2 (08:23→20:00)
[2021-03-22] MEDS: AMIODARONE 200 MG (CORDARONE) TAB PO SCH ×2 (08:23→20:00)
[2021-03-22] MEDS: ASPIRIN E.C. 81 MG (ECOTRIN) TAB PO SCH (08:23)
[2021-03-22] MEDS: ROSUVASTATIN 20 MG (CRESTOR) TABLET PO SCH (08:23)
[2021-03-22 10:19] VITALS: BP 114/73
--- NOTE | 2021-03-22 13:03 | Progress Note - Hospitalist ---
Subjective HPI/CC On Admission Date Seen by Provider: Mar 22, 2021 Time Seen by Provider: 11:25 Chief complaint: Shortness of breath History of present illness: This is a 50-year-old white male known to this hospital service due to multiple hospital stays historically for illicit drug use meth use causing severe cardiac issues who is withheld from illicit drug use for the last 2 months but suffered Covid pneumonia and not fully recovered maintained on home oxygen supplementation who presents to the ER with shortness of breath and lower extremity edema. He appears to be more declined every time I admit him. He appears 20 years older than stated age. He reports that he really needs the valvular heart surgery but it appears he is not a surgical candidate due to the poor reserve he has and other psychosocial issues that make rehabilitation a minimal success. Dr. Brantley has been consulted and he remains tachycardic. Subjective/Events-last exam He is sleeping in his bedside chair. He has no complaints or concerns. He is not short of breath. He is not having any pain. Objective Exam Vital Signs Vital Signs Date Time Temp Pulse Resp B/P (MAP) Pulse Ox O2 Delivery O2 Flow Rate FiO2 03/22/21 10:19 36.8 75 98 32 03/22/21 10:17 High Flow N/C 3.00 03/22/21 07:30 20 114/73 Capillary Refill : Less Than 3 Seconds General Appearance: No Apparent Distress, Chronically ill Respiratory: Lungs Clear, Normal Breath Sounds, No Respiratory Distress Cardiovascular: Regular Rate, Rhythm, No Edema, No Murmur Gastrointestinal: Normal Bowel Sounds, Non Tender, Soft Extremity: Normal Inspection, Non Tender, No Pedal Edema Neurologic/Psychiatric: Alert, Oriented x3, No Motor/Sensory Deficits, Normal Mood/Affect Skin: Cool, Pallor Results/Procedures Lab Patient resulted labs reviewed. Imaging: Reviewed Imaging Report Assessment/Plan Assessment and Plan Assess & Plan/Chief Complaint Valvular heart disease Multivessel CAD Atrial fibrillation Ischemic cardiomyopathy HFrEF Hypertension Hyperlipidemia Nonadherence to medication regimen Poor prognosis Cardiology following Previously deemed not a surgical candidate, Dr. Donnelly to reevaluate at outpatient visit Tuesday Patient wants second opinion if Dr. Donnelly does not believe he is a surgical candidate Continue current regimen Consider hospice if no treatment options available Social work consult for possible medication voucher Pulmonary embolism Eliquis Polysubstance abuse Clinically significant, currently in remission DVT prophylaxis: already receiving therapeutic anticoagulation Cardiogenic shock, resolved Diagnosis/Problems Diagnosis/Problems (1) Cardiogenic shock Status: Resolved Resolution Date/Time: 03/21/21 @ 13:55 (2) Ischemic cardiomyopathy Status: Chronic (3) Acute heart failure with reduced ejection fraction and diastolic dysfunction Status: Acute (4) Valvular heart disease Status: Acute (5) Multiple vessel coronary artery disease Status: Chronic (6) Noncompliance with medication regimen Status: Chronic (7) Poor prognosis Status: Acute (8) Pulmonary embolism Status: Acute Qualifiers: Pulmonary embolism type: other Chronicity: chronic Acute cor pulmonale presence: without acute cor pulmonale Qualified Codes: I27.82 - Chronic pulmonary embolism (9) Polysubstance abuse Status: Chronic Clinical Quality Measures Smoking Cessation Counseling: Counseling-Symptomatic: 3-10 Minutes Discussed Options Including: Group/Indiv Counseling KIM CLAYTON MD Mar 22, 2021 13:03
--- NOTE | 2021-03-22 15:40 | Progress Note - Cardiology ---
Cardiology SOAP Progress Note Subjective: No cp or palp or syncope Shortness of breath with mild to mod activity Gen malaise and weakness present No n/v/d Objective: I&O/Vital Signs 03/22/21 03/22/21 03/22/21 03/22/21 07:30 07:36 10:17 10:19 Temp 36.8 36.8 Pulse 75 75 Resp 20 B/P (MAP) 114/73 Pulse Ox 98 98 98 98 O2 Delivery High Flow N/C High Flow N/C High Flow N/C O2 Flow Rate 2.00 2.00 3.00 FiO2 32 03/22/21 15:29 Temp 36.6 Pulse 72 Resp 26 B/P (MAP) 91/59 Pulse Ox 99 O2 Delivery High Flow N/C O2 Flow Rate 2.00 03/22/21 00:00 Intake Total 970 ml Output Total 1370 ml Balance -400 ml Weight (Pounds): 225 Weight (Ounces): 15.0 Weight (Calculated Kilograms): 102.430287 Constitutional: AAO x 3, well-developed, well-nourished Respiratory: No accessory muscle use, No respiratory distress; chest expansion is symmetric, chest is bilaterally symmetric, other (diminished lower lobes bilat; prolonged exp phase) Cardiovascular: regular rate-rhythm, systolic murmur Gastrointestional: No tender; round Extremities: significant edema (bilat LE 2+ edema) Neurologic/Psychiatric: oriented x 3, other (moves all limbs equally) Skin: other (dry, flaky skin) Results/Procedures: Labs Microbiology 03/13/21 MRSA Screen - Final, Complete MRSA not isolated Laboratory Tests 03/21/21 04:55 A/P: Assessment: Hypotension, intermittent, probably partially related to volume depletion and partially to cardiomyopathy Episode of NSVT on 03/10/21 - asymptomatic. ICD interrogated on 03/11/21 and found to be functioning normally - amiodarone added to regimen on 03/10/21 (received IV load, now on oral) Acute on chronic systolic CHF - improving A fib/flutter with RVR - rate improved Hemoptysis, likely due to pulm embolism - medical services managing Recurrent Pulmonary Emboli - Persistent left upper lobe pulmonary embolism with new left lower lobe segmental pulmonary emboli. No right-sided emboli are seen. There is no evidence of right heart strain. Per CTA of the chest on 03-09-21 - No evidence of DVT on venous doppler of 03-10-21 CAD: - H/o [place] in late Jan 2019 (see below) - Card cath on 02/01/19: Coronary artery disease consisting of complete ostial occlusion of the left anterior descending artery to which successful percutaneous coronary intervention was carried out. Following deployment of Alpine Xience 2.75 x 18 mm stent, there is no significant residual stenosis. A large obtuse marginal of the left circumflex shows 80% bifurcation stenosis in its distal portion. Right coronary artery is dominant and has mild disease. Elevated left ventricular end-diastolic pressure. Well preserved global left ventricular systolic function with ejection fraction approximately 55%. - Repeat intervention on 02-07-[address] Almaraz: balloon angioplasty to the ostium and proximal LAD with slow flow in the LAD with reestablishment of flow and good results. Mild disease in the circumflex and right coronary artery Dilated left ventricle with anterior wall hypokinesia to akinesia, estimated ejection fraction 30% - Last cardiac cath by Dr Almaraz on 09/17/20: Moderate to severe proximal and mid LAD, severe mid vessel disease of an OM, distal LAD fistula to the venous system / RV, dilated left ventricle with diffuse left ventricular hypokinesia ejection fraction 30% Ischemic cardiomyopathy. - Echo on 02/04/19: LVEF 40-45%, anteroseptal hypokinesis, mild conc LVH, RVSP 20 mmHg. LVEF 30% on cardiac cath of 02-07-19. - Echo of May 25, 2019 showed LVEF 30-35% - s/p single chamber ICD for SCD prophylaxis in October 2019, functioning normally on interrogation of 03/11/21 - Echo of 12-08-20 showed LVEF 35-40%, mod to severe MR; mod TR; PASP 40-45 mmHg - Echo of 03-08-[address] Brantley showed LVEF 30-35%. Severely dilated RV. LA and RA mod dilated. Mod MR. Mod to severe TR. PASP 39 mmHg Transferred for consideration of CABG and repair of AV fistula and MV by Dr Almaraz to [facility] in September 2020. Not found to be a suitable candidate for any surgery due to continuing methamphetamine abuse Hyperlipidemia, by hx Tobaccoism, educated on smoking cessation (reports no usage in a month or two) Continued methamphetamine use - cessation advised (reports no usage in a month or two) Continued marijuana use - cessation advised (reports no usage in a month or two) H/o noncompliance with medications and f/u Plan: I have spoken with Dr Donnelly of CV Surg at [facility]. Dr Donnelly is not sure if surgery would be of any benefit to the patient. He is willing to see him as an outpt at his next clinic on 03/24/21. I relayed that to Mr Renteria. We will attempt to have him discharged from the hospital by then His prognosis does not appear good. Hospice seems to be a reasonable option. I answered Mr Renteria's questions about that Had been on prasugrel + ASA + apixaban. This significantly increases his risk for bleeding. He has not had any recent coronary stenting. Therefore, we have d/c'd Prasugrel at this time while continuing ASA and apixaban Monitor labs Clinical Quality Measures Smoking Cessation Counseling: Counseling-Symptomatic: 3-10 Minutes Discussed Options Including: Group/Indiv Counseling ALETHEA ALMAZAN MD [facility] Mar 22, 2021 15:40
[2021-03-22] MEDS: RT-ALBUTEROL/IPRATROPIUM 3 ML (DUONEB) VIAL INH PRN (18:19)
[2021-03-22] MEDS: LORazepam INJ 2 MG/ML (ATIVAN) VIAL IVP PRN (23:38)
[2021-03-23] MEDS: NS IV 1000 ML 1,000 ML IV SCH (01:49)
[2021-03-23] MEDS: KCL 20 MEQ TAB (K-DUR) PO SCH (05:54)
[2021-03-23] MEDS: CATHETER FLUSH 10 ML SYR IV SCH (05:54)
[2021-03-23] MEDS: DIGOXIN 0.25 MG (LANOXIN) TAB PO SCH (08:59)
[2021-03-23] MEDS: ASPIRIN E.C. 81 MG (ECOTRIN) TAB PO SCH (08:59)
[2021-03-23] MEDS: AMIODARONE 200 MG (CORDARONE) TAB PO SCH (08:59)
[2021-03-23] MEDS: FUROSEMIDE 40 MG/4 ML INJ (LASIX) IVP SCH (08:59)
[2021-03-23] MEDS: APIXABAN 5 MG (ELIQUIS) TABLET PO SCH (08:59)
[2021-03-23] MEDS: ROSUVASTATIN 20 MG (CRESTOR) TABLET PO SCH (08:59)
--- NOTE | 2021-03-23 09:24 | Progress Note - Cardiology ---
Cardiology SOAP Progress Note Subjective: Sitting up in bed No c/o CP Feels breathing is ok Wants to go home so he can go see Dr. Donnelly tomorrow Objective: I&O/Vital Signs 03/22/21 03/23/21 03/23/21 03/23/21 22:52 00:07 07:23 07:30 Temp 36.4 Pulse 75 Resp 18 B/P (MAP) 109/72 Pulse Ox 94 94 94 O2 Delivery High Flow N/C High Flow N/C Nasal Cannula Nasal Cannula O2 Flow Rate 5.00 3.00 3.00 3.00 03/23/21 08:34 Temp 36.4 Pulse 81 Resp 20 B/P (MAP) 103/65 Pulse Ox 97 O2 Delivery High Flow N/C O2 Flow Rate 3.00 03/23/21 00:00 Intake Total 820 ml Output Total 1575 ml Balance -755 ml Weight (Pounds): 225 Weight (Ounces): 15.0 Weight (Calculated Kilograms): 102.155095 Constitutional: AAO x 3, well-developed, well-nourished Respiratory: No accessory muscle use, No respiratory distress; chest expansion is symmetric, chest is bilaterally symmetric, other (diminished lower lobes bilat; prolonged exp phase) Cardiovascular: regular rate-rhythm, systolic murmur Gastrointestional: No tender; round Extremities: significant edema (mod bilat LE swelling) Neurologic/Psychiatric: oriented x 3, other (moves all limbs equally) Skin: other (dry, flaky skin) Results/Procedures: Labs Microbiology 03/13/21 MRSA Screen - Final, Complete MRSA not isolated A/P: Assessment: Hypotension, intermittent, probably partially related to volume depletion and partially to cardiomyopathy Episode of NSVT on 03/10/21 - asymptomatic. ICD interrogated on 03/11/21 and found to be functioning normally - amiodarone added to regimen on 03/10/21 (received IV load, now on oral) Acute on chronic systolic CHF - improving A fib/flutter with RVR - rate improved Hemoptysis, likely due to pulm embolism - medical services managing - resolved Recurrent Pulmonary Emboli - Persistent left upper lobe pulmonary embolism with new left lower lobe segmental pulmonary emboli. No right-sided emboli are seen. There is no evidence of right heart strain. Per CTA of the chest on 03-09-21 - No evidence of DVT on venous doppler of 03-10-21 CAD: - H/o [place] in late Jan 2019 (see below) - Card cath on 02/01/19: Coronary artery disease consisting of complete ostial occlusion of the left anterior descending artery to which successful percutaneous coronary intervention was carried out. Following deployment of Alpine Xience 2.75 x 18 mm stent, there is no significant residual stenosis. A large obtuse marginal of the left circumflex shows 80% bifurcation stenosis in its distal portion. Right coronary artery is dominant and has mild disease. Elevated left ventricular end-diastolic pressure. Well preserved global left ventricular systolic function with ejection fraction approximately 55%. - Repeat intervention on 02-07-[address] Almaraz: balloon angioplasty to the ostium and proximal LAD with slow flow in the LAD with reestablishment of flow and good results. Mild disease in the circumflex and right coronary artery Dilated left ventricle with anterior wall hypokinesia to akinesia, estimated ejection fraction 30% - Last cardiac cath by Dr Almaraz on 09/17/20: Moderate to severe proximal and mid LAD, severe mid vessel disease of an OM, distal LAD fistula to the venous system / RV, dilated left ventricle with diffuse left ventricular hypokinesia ejection fraction 30% Ischemic cardiomyopathy. - Echo on 02/04/19: LVEF 40-45%, anteroseptal hypokinesis, mild conc LVH, RVSP 20 mmHg. LVEF 30% on cardiac cath of 02-07-19. - Echo of May 25, 2019 showed LVEF 30-35% - s/p single chamber ICD for SCD prophylaxis in October 2019, functioning normally on interrogation of 03/11/21 - Echo of 12-08-20 showed LVEF 35-40%, mod to severe MR; mod TR; PASP 40-45 mmHg - Echo of 03-08-[address] Brantley showed LVEF 30-35%. Severely dilated RV. LA and RA mod dilated. Mod MR. Mod to severe TR. PASP 39 mmHg Transferred for consideration of CABG and repair of AV fistula and MV by Dr Almaraz to [facility] in September 2020. Not found to be a suitable candidate for any surgery due to continuing methamphetamine abuse Hyperlipidemia, by hx Tobaccoism, educated on smoking cessation (reports no usage in a month or two) Continued methamphetamine use - cessation advised (reports no usage in a month or two) Continued marijuana use - cessation advised (reports no usage in a month or two) H/o noncompliance with medications and f/u Plan: I have spoken with Dr Donnelly of CV Surg at [facility]. Dr Donnelly is not sure if surgery would be of any benefit to the patient. He is willing to see him as an outpt at his next clinic on 03/24/21. I relayed that to Mr Renteria. We will attempt to have him discharged from the hospital by then His prognosis does not appear good. Hospice seems to be a reasonable option. I answered Mr Renteria's questions about that Had been on prasugrel + ASA + apixaban. This significantly increases his risk for bleeding. He has not had any recent coronary stenting. Therefore, we have d/c'd Prasugrel at this time while continuing ASA and apixaban Stop IVF Change IV Lasix to oral Monitor labs Clinical Quality Measures Smoking Cessation Counseling: Counseling-Symptomatic: 3-10 Minutes Discussed Options Including: Group/Indiv Counseling MARGARITO IBANEZ Mar 23, 2021 09:24
[2021-03-23] MEDS ORDERED: DIGO250T3 PO (12:55)
[2021-03-23] MEDS ORDERED: CARV6.252 PO (12:55)
[2021-03-23] MEDS ORDERED: AMIO200T6 PO (12:55)
[2021-03-23] MEDS ORDERED: FURO40TA4 PO (12:56)
[2021-03-23] MEDS ORDERED: ROSU20TA32 PO (12:56)
--- NOTE | 2021-03-23 14:39 | Discharge Summary ---
Discharge Summary Hospital Course Problems/Diagnosis: (1) Acute on chronic combined systolic and diastolic congestive heart failure Status: Acute Assessment & Plan: 03/09: Cardiology consulted and managing, appreciate recommendations, continues to have significant LE edema 03/23: patient continued on oral lasix daily, changed to carvedilol, amiodarone and digoxin, discussion was had with him per Cardiology about seeing Dr. Donnelly ([facility]) 03/24/21 for discussion about whether any surgical intervention could be considered, however if not, hospice was thought to be appropriate. Carvedilol, amiodarone and digoxin sent to [place] with voucher. Furosemide and rosuvastatin refilled at [facility]. (2) Wide-complex tachycardia Status: Acute Assessment & Plan: 03/11: Started on Amiodarone by Cardiology, this was continued on d/c. (3) Ischemic cardiomyopathy Status: Chronic Assessment & Plan: -s/p NE 01/2019 and cath done with PCI done 02/01/21 to ostial occlusion of LAD, repeat intervetnion 02/07/21 with baloon agioplasty to ostium and proximal LAD. -s/p single chamber ICD 10/2019 -Cath 09/17/20 with moderate to severe proximal and mid LAD stenosis, severe mid vessel disease of an OM, distal LAD fistula to venous system/RV, dilated left ventricle with diffuse left ventricular hypokinesis- transferred for consi deration of CABG and AV fistula repair and MV to [place], but not suitable candidate for surgery at that time due to continued methamphetamine use (4) Pulmonary embolism Status: Acute Assessment & Plan: Continued Eliquis Qualifiers: Qualified Codes: I27.82 - Chronic pulmonary embolism (5) Mitral regurgitation Status: Chronic Assessment & Plan: 03/23- outpatient follow up on 03/24 with [facility] for further discussion Qualifiers: Qualified Codes: I34.0 - Nonrheumatic mitral (valve) insufficiency (6) HLD (hyperlipidemia) Status: Chronic Assessment & Plan: Rosuvastatin refilled on d/c. Qualifiers: Qualified Codes: E78.2 - Mixed hyperlipidemia (7) Noncompliance with medication regimen Status: Chronic (8) Tobacco abuse Status: Chronic (9) Methamphetamine abuse Status: Chronic Hospital Course Date of Admission: Mar 07, 2021 at 15:36 Admission Diagnosis : See problem list Family Physician/Provider: Luis Plunkett MD Date of Discharge: 03/23/21 Discharge Diagnosis: See problem list Hospital Course: See problem list Labs and Pending Lab Test: Microbiology 03/13/21 MRSA Screen - Final, Complete MRSA not isolated Home Meds Active Rosuvastatin Calcium 20 Mg Tablet 20 Mg PO DAILY Furosemide 40 Mg Tablet 40 Mg PO DAILY Digoxin 250 Mcg Tablet 250 Mcg PO DAILY Carvedilol 6.25 Mg Tablet 6.25 Mg PO BID Amiodarone HCl 200 Mg Tablet 400 Mg PO BID Reported Eliquis (Apixaban) 5 Mg Tablet 5 Mg PO BID DIRECTIONS ON THE BOTTLE ARE " 2 TABS DAILY X 7 DAYS THEN 1 TAB DAILY" AND PATIENT HAS BEEN TAKING IT PER THE DIRECTIONS Proair Hfa (Albuterol Sulfate) 1 Puff Puff 2 Puff IH Q4H PRN Aspirin EC (Aspirin) 81 Mg Tablet. 81 Mg PO DAILY Assessment/Pt DC Instructions Follow up with Dr. Donnelly on 03/24/2021. Appointment to reestablish care at [facility]. Discharge Diet: Cardiac Diet Discharge Physical Examination Allergies: Coded Allergies: No Known Drug Allergies (Unverified , 05/29/11) General Appearance: Chronically ill Respiratory: Lungs Clear, Normal Breath Sounds Cardiovascular: Regular Rate, Rhythm, Systolic Murmur Gastrointestinal: Normal Bowel Sounds, Soft Skin: Cyanosis Neurologic/Psychiatric: Alert, Normal Mood/Affect Clinical Quality Measures Smoking Cessation Counseling: Counseling-Symptomatic: 3-10 Minutes Discussed Options Including: Group/Indiv Counseling TANG TERRY MD Mar 23, 2021 14:38
[2021-03-23 15:28] VITALS: BP 109/65
--- NOTE | 2021-03-23 17:14 | Progress Note - Cardiology ---
Cardiology SOAP Progress Note Subjective: Shortness of breath with moderate activity (better compared to time of admission) No cp or palp or syncope No n/v/d Objective: I&O/Vital Signs 03/23/21 03/23/21 03/23/21 03/23/21 07:23 07:30 08:00 08:34 Temp 36.4 Pulse 81 Resp 20 B/P (MAP) 103/65 Pulse Ox 94 97 97 O2 Delivery Nasal Cannula Nasal Cannula Nasal Cannula High Flow N/C O2 Flow Rate 3.00 3.00 5.00 3.00 03/23/21 03/23/21 11:56 15:28 Temp 36.5 36.5 Pulse 80 80 Resp 20 B/P (MAP) 109/65 109/65 Pulse Ox 100 100 O2 Delivery High Flow N/C High Flow N/C O2 Flow Rate 3.00 3.00 03/23/21 00:00 Intake Total 820 ml Output Total 1575 ml Balance -755 ml Weight (Pounds): 225 Weight (Ounces): 15.0 Weight (Calculated Kilograms): 102.370425 Constitutional: AAO x 3, well-developed, well-nourished Respiratory: No accessory muscle use, No respiratory distress; chest expansion is symmetric, chest is bilaterally symmetric, other (diminished lower lobes bilat; prolonged exp phase) Cardiovascular: regular rate-rhythm, systolic murmur Gastrointestional: No tender; round Extremities: significant edema (mod bilat LE swelling) Neurologic/Psychiatric: oriented x 3, other (moves all limbs equally) Skin: other (dry, flaky skin) Results/Procedures: Labs Microbiology 03/13/21 MRSA Screen - Final, Complete MRSA not isolated A/P: Assessment: Hypotension, intermittent, probably partially related to volume depletion and partially to cardiomyopathy Episode of NSVT on 03/10/21 - asymptomatic. ICD interrogated on 03/11/21 and found to be functioning normally - amiodarone added to regimen on 03/10/21 (received IV load, now on oral) Acute on chronic systolic CHF - improving A fib/flutter with RVR - rate improved Hemoptysis, likely due to pulm embolism - medical services managing - resolved Recurrent Pulmonary Emboli - Persistent left upper lobe pulmonary embolism with new left lower lobe segmental pulmonary emboli. No right-sided emboli are seen. There is no evidence of right heart strain. Per CTA of the chest on 03-09-21 - No evidence of DVT on venous doppler of 03-10-21 CAD: - H/o [place] in late Jan 2019 (see below) - Card cath on 02/01/19: Coronary artery disease consisting of complete ostial occlusion of the left anterior descending artery to which successful percutaneous coronary intervention was carried out. Following deployment of Alpine Xience 2.75 x 18 mm stent, there is no significant residual stenosis. A large obtuse marginal of the left circumflex shows 80% bifurcation stenosis in its distal portion. Right coronary artery is dominant and has mild disease. Elevated left ventricular end-diastolic pressure. Well preserved global left ventricular systolic function with ejection fraction approximately 55%. - Repeat intervention on 02-07-[address] Almaraz: balloon angioplasty to the ostium and proximal LAD with slow flow in the LAD with reestablishment of flow and good results. Mild disease in the circumflex and right coronary artery Dilated left ventricle with anterior wall hypokinesia to akinesia, estimated ejection fraction 30% - Last cardiac cath by Dr Almaraz on 09/17/20: Moderate to severe proximal and mid LAD, severe mid vessel disease of an OM, distal LAD fistula to the venous system / RV, dilated left ventricle with diffuse left ventricular hypokinesia ejection fraction 30% Ischemic cardiomyopathy. - Echo on 02/04/19: LVEF 40-45%, anteroseptal hypokinesis, mild conc LVH, RVSP 20 mmHg. LVEF 30% on cardiac cath of 02-07-19. - Echo of May 25, 2019 showed LVEF 30-35% - s/p single chamber ICD for SCD prophylaxis in October 2019, functioning normally on interrogation of 03/11/21 - Echo of 12-08-20 showed LVEF 35-40%, mod to severe MR; mod TR; PASP 40-45 mmHg - Echo of 03-08-[address] Brantley showed LVEF 30-35%. Severely dilated RV. LA and RA mod dilated. Mod MR. Mod to severe TR. PASP 39 mmHg Transferred for consideration of CABG and repair of AV fistula and MV by Dr Almaraz to [facility] in September 2020. Not found to be a suitable candidate for any surgery due to continuing methamphetamine abuse Hyperlipidemia, by hx Tobaccoism, educated on smoking cessation (reports no usage in a month or two) Continued methamphetamine use - cessation advised (reports no usage in a month or two) Continued marijuana use - cessation advised (reports no usage in a month or two) H/o noncompliance with medications and f/u Plan: I have spoken with Dr Donnelly of CV Surg at [facility]. Dr Donnelly is not sure if surgery would be of any benefit to the patient. He is willing to see him as an outpt at his next clinic on 03/24/21. I relayed that to Mr Renteria. We will attempt to have him discharged from the hospital by then His prognosis does not appear good. Hospice seems to be a reasonable option. I answered Mr Renteria's questions about that Had been on prasugrel + ASA + apixaban. This significantly increases his risk for bleeding. He has not had any recent coronary stenting. Therefore, we have d/c'd Prasugrel at this time while continuing ASA and apixaban Stop IVF Change IV Lasix to oral Clinical Quality Measures Smoking Cessation Counseling: Counseling-Symptomatic: 3-10 Minutes Discussed Options Including: Group/Indiv Counseling ALETHEA ALMAZAN MD FACP [facility] Mar 23, 2021 17:14
[2021-03-24] MEDS ORDERED: FUROSEMIDE 40 MG (LASIX) TAB PO SCH (09:00)
== END 2021-03-23 15:15 | disposition home or self-care (01) | DRG 291 ==
LOC: EDUNIT# 13:09 → ER 13:11 → CSD 15:36 → ICU 03-13 11:19 → 4TH 03-20 18:19
PROVIDERS: ADMIT Internal Medicine; ATTEND Family Medicine
DX: I50.43 Acute on chronic combined systolic (congestive) and diastolic (congestive) heart failure (principal); I26.99 Other pulmonary embolism without acute cor pulmonale; R57.0 Cardiogenic shock; I47.2 Ventricular tachycardia; I48.20 Chronic atrial fibrillation, unspecified; E87.1 Hypo-osmolality and hyponatremia; I48.92 Unspecified atrial flutter; I25.5 Ischemic cardiomyopathy; J44.9 Chronic obstructive pulmonary disease, unspecified; I34.0 Nonrheumatic mitral (valve) insufficiency; I27.20 Pulmonary hypertension, unspecified; Z86.16 Personal history of COVID-19; Z95.810 Presence of automatic (implantable) cardiac defibrillator; Z87.891 Personal history of nicotine dependence; Z79.82 Long term (current) use of aspirin; Z79.899 Other long term (current) drug therapy; Z91.14 Patient's other noncompliance with medication regimen; F15.10 Other stimulant abuse, uncomplicated; E78.2 Mixed hyperlipidemia; I95.2 Hypotension due to drugs; T50.2X5A Adverse effect of carbonic-anhydrase inhibitors, benzothiadiazides and other diuretics, initial encounter; G89.29 Other chronic pain; R06.89 Other abnormalities of breathing; I25.10 Atherosclerotic heart disease of native coronary artery without angina pectoris; Z66 Do not resuscitate; Z51.5 Encounter for palliative care; F19.10 Other psychoactive substance abuse, uncomplicated; F12.90 Cannabis use, unspecified, uncomplicated; E86.9 Volume depletion, unspecified; I25.2 Old myocardial infarction; Z95.1 Presence of aortocoronary bypass graft; Z20.822 Contact with and (suspected) exposure to COVID-19
CPT/HCPCS: 36415; 36569; 71045; 71275; 76937; 80048; 80053; 80162; 80306; 81000; 82550; 83735; 83880; 84100; 84132; 84443; 84484; 85007; 85025; 85027; 87081; 87636; 93005; 93306; 93970; 94640; 94664; 94760; 94761; 96374; 96375

== ENCOUNTER 2021-05-28 10:19 | Emergency (ER) | payer MEDICAID ==
[~2021-05-28] VITALS: Ht 187.9 cm; Wt 90.7 kg
[~2021-05-28 10:19] MED LIST changes: +AMIO200T65 PO; +CARV6.252 PO; +DIGO250T15 PO; +DIGO250T3 PO; -LISI-729 PO; +LISI5TAB20 PO; +POTA-160 PO; -POTA10TA36 PO; +POTA10TA37 PO; -POTA10TA6 PO; +RT-ALBUINH IH
[2021-05-28 10:57] LABS: BASOPHILS # (AUTO) 0.1 10^3/uL (0.0-0.1); BASOPHILS % (AUTO) 1 % (0-10); EOSINOPHILS # (AUTO) 0.1 10^3/uL (0.0-0.3); EOSINOPHILS % (AUTO) 1 % (0-10); HEMATOCRIT 43 % (40-54); HEMOGLOBIN 12.4 g/dL (13.3-17.7); LYMPHOCYTES # (AUTO) 1.7 10^3/uL (1.0-4.0); LYMPHOCYTES % (AUTO) 24 % (12-44); MEAN CORPUSCULAR HEMOGLOBIN 27 pg (25-34); MEAN CORPUSCULAR HGB CONC 29 g/dL (32-36); MEAN CORPUSCULAR VOLUME 92 fL (80-99); MEAN PLATELET VOLUME 10.1 fL (9.0-12.2); MONOCYTES # (AUTO) 0.7 10^3/uL (0.0-1.0); MONOCYTES % (AUTO) 10 % (0-12); NEUTROPHILS # (AUTO) 4.5 10^3/uL (1.8-7.8); NEUTROPHILS % (AUTO) 63 % (42-75); PLATELET COUNT 396 10^3/uL (130-400); WHITE BLOOD COUNT 7.1 10^3/uL (4.3-11.0)
[2021-05-28 10:59] LABS: ALBUMIN 3.7 GM/DL (3.2-4.5)
[2021-05-28 11:00] LABS: POTASSIUM 4.1 MMOL/L (3.6-5.0)
[2021-05-28] MEDS ORDERED: DOBUTamine DRIP 250 ML IV SCH (11:00)
--- NOTE | 2021-05-28 11:00 | ED Cardiac General ---
History of Present Illness General Chief Complaint: Cardiac/General Problems Stated Complaint: LOW BP, SOB Source: patient Exam Limitations: no limitations (ANN STRICKLAND APRN) History of Present Illness Date Seen by Provider: May 28, 2021 Time Seen by Provider: 10:58 Initial Comments To ER with reports that he ran out of his dobutamine drip this morning and has increased shortness of breath. He was subsequently referred to the emergency room. Typically wears his dobutamine pump with the infusion at 3.5 mcg/kg/min infusion [id number]. He receives this from the [facility]. It was supposed to be delivered yesterday, it was not so he is currently out of it. He has increasing shortness of breath and hypotension. History of severe mitral regurgitation, coronary artery disease, congestive heart failure, pulmonary embolism, methamphetamine use and homelessness. Timing/Duration: 4-6 hours Severity: moderate Location: central [facility] FEATHEREDGER AND REDUCER MACHINE: No ASA po FEATHEREDGER AND REDUCER MACHINE: No Associated Systoms: Shortness of Air (ANN STRICKLAND APRN) Allergies and Home Medications Allergies Coded Allergies: No Known Drug Allergies (Unverified , 05/29/11) Patient Home Medication List Home Medication List Reviewed: Yes (ANN STRICKLAND APRN) Albuterol Sulfate (Proair Hfa) 1 Puff Puff, 2 PUFF IH Q4H PRN for SHORTNESS OF BREATH, (Reported) Entered as Reported by: CARMENZA HUDSON on 03/09/21 1036 Amiodarone HCl (Amiodarone HCl) 200 Mg Tablet, 400 MG PO BID Prescribed by: TANG TERRY on 03/23/21 1255 Apixaban (Eliquis) 5 Mg Tablet, 5 MG PO BID, (Reported) Entered as Reported by: CARMENZA HUDSON on 03/09/21 1036 Aspirin (Aspirin EC) 81 Mg Tablet.dr, 81 MG PO DAILY, (Reported) Entered as Reported by: CARMENZA HUDSON on 02/12/21 1412 Carvedilol (Carvedilol) 6.25 Mg Tablet, 6.25 MG PO BID Prescribed by: TANG TERRY on 03/23/21 1255 Digoxin (Digoxin) 250 Mcg Tablet, 250 MCG PO DAILY Prescribed by: TANG TERRY on 03/23/21 1255 Furosemide (Furosemide) 40 Mg Tablet, 40 MG PO DAILY Prescribed by: TANG TERRY on 03/23/21 1256 Rosuvastatin Calcium (Rosuvastatin Calcium) 20 Mg Tablet, 20 MG PO DAILY Prescribed by: TANG TERRY on 03/23/21 1256 Review of Systems Review of Systems Constitutional: see HPI EENTM: No Symptoms Reported Respiratory: See HPI, Shortness of Air Cardiovascular: No Symptoms Reported Gastrointestinal: No Symptoms Reported Genitourinary: No Symptoms Reported Musculoskeletal: no symptoms reported Skin: no symptoms reported Psychiatric/Neurological: No Symptoms Reported Endocrine: No Symptoms Reported Hematologic/Lymphatic: No Symptoms Reported (ANN STRICKLAND APRN) Past Ttnarje-Rkramh-Totrqb Hx Immunizations Up To Date Tetanus Booster (TDap): Unknown (ANN STRICKLAND APRN) Seasonal Allergies Seasonal Allergies: No (ANN STRICKLAND APRN) Past Medical History Surgery/Hospitalization HX: [place], STENTS X3, ICD, SHOULDER SX Surgeries: Yes (LEFT SHOULDER BICEPS TENDON, HEART STENTS 02/01/19) Defibrillator Respiratory: No Currently Using CPAP: No Currently Using BIPAP: No Cardiac: Yes (heart failure) Cardiomyopathy, Coronary Artery Disease, Heart Attack, Valvular Heart Disease Neurological: No Sexually Transmitted Disease: No HIV/AIDS: No Genitourinary: No Gastrointestinal: No Musculoskeletal: Yes (LEFT SHOULDER SURGERY) Endocrine: No HEENT: No Loss of Vision: Denies Hearing Impairment: Denies Cancer: No Psychosocial: No Integumentary: No Blood Disorders: No (ANN STRICKLAND APRN) Family Medical History Diabetes mellitus 19 MOTHER, Onset:Unknown Myocardial infarction 19 MOTHER Heart Disease, Diabetes (ANN STRICKLAND APRN) Physical Exam Vital Signs Vital Signs - First Documented 05/28/21 10:20 Temp 35.6 Pulse 111 Resp 20 B/P (MAP) 119/71 (87) Pulse Ox 95 O2 Delivery Nasal Cannula O2 Flow Rate 2.00 (OSBALDO MCKINLEY MD) Vital Signs Capillary Refill : (ANN STRICKLAND APRN) Height, Weight, BMI Height: 6'2.00" Weight: 225lbs. 15.0oz. 102.771443lz; 28.59 BMI Method:Stated General Appearance: No Apparent Distress, WD/WN, Chronically ill, Other (Peers much older than stated age. Current blood pressure 100/77 heart rate 99 oxygen 100% on his baseline 2 L) Respiratory: No Accessory Muscle Use, No Respiratory Distress Cardiovascular: Regular Rate, Rhythm, Normal Peripheral Pulses Gastrointestinal: Non Tender, Soft Neurologic/Psychiatric: Alert, Oriented x3 Skin: Normal Color, Warm/Dry (ANN STRICKLAND APRN) Progress/Results/Core Measures Results/Orders Lab Results Laboratory Tests Test 05/28/21 10:30 05/28/21 12:22 05/28/21 12:36 Range/Units White Blood Count 7.1 4.3-11.0 10^3/uL Red Blood Count 4.66 4.30-5.52 10^6/uL Hemoglobin 12.4 L 13.3-17.7 g/dL Hematocrit 43 40-54 % Mean Corpuscular Volume 92 80-99 fL Mean Corpuscular Hemoglobin 27 25-34 pg Mean Corpuscular Hemoglobin Concent 29 L 32-36 g/dL Red Cell Distribution Width 18.3 H 10.0-14.5 % Platelet Count 396 130-400 10^3/uL Mean Platelet Volume 10.1 9.0-12.2 fL Immature Granulocyte % (Auto) 1 % Neutrophils (%) (Auto) 63 42-75 % Lymphocytes (%) (Auto) 24 12-44 % Monocytes (%) (Auto) 10 0-12 % Eosinophils (%) (Auto) 1 0-10 % Basophils (%) (Auto) 1 0-10 % Neutrophils # (Auto) 4.5 1.8-7.8 10^3/uL Lymphocytes # (Auto) 1.7 1.0-4.0 10^3/uL Monocytes # (Auto) 0.7 0.0-1.0 10^3/uL Eosinophils # (Auto) 0.1 0.0-0.3 10^3/uL Basophils # (Auto) 0.1 0.0-0.1 10^3/uL Immature Granulocyte # (Auto) 0.1 0.0-0.1 10^3/uL Prothrombin Time 22.8 H 12.2-14.7 SEC INR Comment 2.0 H 0.8-1.4 Activated Partial Thromboplast Time 36 H 24-35 SEC Sodium Level 134 L 135-145 MMOL/L Potassium Level 4.1 3.6-5.0 MMOL/L Chloride Level 99 98-107 MMOL/L Carbon Dioxide Level 17 L 21-32 MMOL/L Anion Gap 18 H 5-14 MMOL/L Blood Urea Nitrogen 19 H 7-18 MG/DL Creatinine 1.40 H 0.60-1.30 MG/DL Estimat Glomerular Filtration Rate 54 BUN/Creatinine Ratio 14 Glucose Level 138 H 70-105 MG/DL Calcium Level 9.4 8.5-10.1 MG/DL Corrected Calcium 9.6 8.5-10.1 MG/DL Magnesium Level 2.1 1.6-2.4 MG/DL Total Bilirubin 1.8 H 0.1-1.0 MG/DL Aspartate Amino Transf (AST/SGOT) 16 5-34 U/L Alanine Aminotransferase (ALT/SGPT) 11 0-55 U/L Alkaline Phosphatase 109 40-136 U/L Myoglobin 94.4 H 10.0-92.0 NG/ML Troponin I < 0.028 <0.028 NG/ML B-Type Natriuretic Peptide 1601.1 H <100.0 PG/ML Total Protein 7.3 6.4-8.2 GM/DL Albumin 3.7 3.2-4.5 GM/DL Procalcitonin 0.08 <0.10 NG/ML SARS-CoV-2 RNA (RT-PCR) Not Detected Not Detecte Urine Color ORANGE Urine Clarity SL CLOUDY Urine pH 5.5 5-9 Urine Specific [place] >=1.030 1.016-1.022 Urine Protein 2+ H NEGATIVE Urine Glucose (UA) TRACE H NEGATIVE Urine Ketones NEGATIVE NEGATIVE Urine Nitrite NEGATIVE NEGATIVE Urine Bilirubin 2+ H NEGATIVE Urine Urobilinogen 4.0 < = 1.0 MG/DL Urine Leukocyte Esterase NEGATIVE NEGATIVE Urine RBC (Auto) NEGATIVE NEGATIVE Urine RBC NONE /HPF Urine WBC 2-5 /HPF Urine Crystals NONE /LPF Urine Bacteria FEW H /HPF Urine Casts PRESENT /LPF Urine Hyaline Casts >50 H /LPF Urine Mucus MODERATE H /LPF Urine Culture Indicated YES Urine Opiates Screen NEGATIVE NEGATIVE Urine Oxycodone Screen NEGATIVE NEGATIVE Urine Methadone Screen NEGATIVE NEGATIVE Urine Propoxyphene Screen NEGATIVE NEGATIVE Urine Barbiturates Screen NEGATIVE NEGATIVE Ur Tricyclic Antidepressants Screen NEGATIVE NEGATIVE Urine Phencyclidine Screen NEGATIVE NEGATIVE Urine Amphetamines Screen NEGATIVE NEGATIVE Urine Methamphetamines Screen NEGATIVE NEGATIVE Urine Benzodiazepines Screen NEGATIVE NEGATIVE Urine Cocaine Screen NEGATIVE NEGATIVE Urine Cannabinoids Screen NEGATIVE NEGATIVE (BRUEGGEMANN,OSBALDO T MD) Medications Given in ED Current Medications Medications Dose Ordered Sig/Maggie Route Start Time Stop Time Status Last Admin Dose Admin Fentanyl Citrate 50 mcg ONCE ONCE IVP 05/28/21 11:15 05/28/21 11:16 DC 05/28/21 11:40 50 MCG Furosemide 40 mg ONCE ONCE IVP 05/28/21 12:45 05/28/21 12:46 DC 05/28/21 12:51 40 MG (OSBALDO MCKINLEY MD) Vital Signs/I&O 05/28/21 05/28/21 05/28/21 10:20 11:42 16:10 Temp 35.6 Pulse 111 101 99 Resp 20 18 B/P (MAP) 119/71 (87) 98/73 102/82 Pulse Ox 95 97 O2 Delivery Nasal Cannula O2 Flow Rate 2.00 (OSBALDO MCKINLEY MD) Departure Communication (Admissions) 1320-we have him on dobutamine here at 3 mics per kilo per minute. His pump from was not compatible with our tubing. I spoke with pharmacy [phone]. They will hose coupling joiner us down his dobutamine medication as well as tubing that is compatible with his home pump. Once that arrives here to the ER we will discharged home. 1548-the hose coupling joiner from pharmacy has arrived with new batteries for the pump, new tubing and a bag of dobutamine. The patient is adept at changing this himself and has hooked the new back up to his pump. We have discontinued our IV dobutamine and transitioned to his. We will discharged home. He is in agreement with this plan. NAME: YURIY MARTINI [facility] REC#: [id number] PT STATUS: REG ER : 1970 PHYSICIAN: ANN STRICKLAND APRN ADMIT DATE: 05/28/21/ER Draft Date of Exam:05/28/21 CHEST 1 VIEW, AP/PA ONLY EXAMINATION: Chest 1 view HISTORY: Chest pain COMPARISON: 03/14/2021 FINDINGS: Stable marginally cardiac silhouette. Left-sided cardiac device is unchanged. There is a small left pleural effusion with adjacent atelectasis or consolidation. Mild interstitial opacities within both lungs. The osseous structures are intact. IMPRESSION: 1. Small left pleural effusion with adjacent atelectasis or consolidation. 2. Patchy interstitial opacities within the lungs which can be seen with pulmonary edema or atypical infection. Dictated on workstation # [id number] Dict: 05/28/21 1124 Trans: 05/28/21 1126 [id number] Interpreted by: MATILDA DONALD DO Electronically signed by: NAME: YURIY MARTINI [facility] REC#: [id number] PT STATUS: REG ER : 1970 PHYSICIAN: ANN STRICKLAND APRN ADMIT DATE: 05/28/21/ER Draft Date of Exam:05/28/21 CT HEAD WO EXAMINATION: CT head without contrast. TECHNIQUE: Multiple contiguous axial images were obtained through the brain without the use of intravenous contrast. All CT scans use one or more of the following dose optimizing techniques: automated exposure control, MA and/or KvP adjustment based on patient size and exam type or iterative reconstruction. HISTORY: headache COMPARISON: None available. FINDINGS: The grimes-white matter differentiation is normal. No mass effect or midline shift. The ventricles are normal in size and configuration. Basilar cisterns are patent. There are no intra- or extra-axial fluid collections. There is no intracranial hemorrhage. The orbits are normal. Paranasal sinuses are normal. Mastoid air cells are clear. No soft tissue abnormality is seen. No osseous lesions or fractures are seen. IMPRESSION: 1. No acute intracranial abnormality. Dictated on workstation # [id number] Dict: 05/28/21 1316 Trans: 05/28/21 1321 [facility] [id number] Interpreted by: LYDIA GARDUNO MD Electronically signed by: (ANN STRICKLAND APRN) Impression Primary Impression: CHF (congestive heart failure) Additional Impression: Dobutamine dependence Disposition: 01 HOME, SELF-CARE Condition: Stable Departure-Patient Inst. Decision time for Depature: 13:20 (ANN STRICKLAND APRN) Referrals: HECTOR MEMBRENO MD (PCP/Family) Primary Care Physician Patient Instructions: Heart Failure ED ATTENDING PHYSICIAN NOTE: I was physically present as attending physician in the emergency department during the care of this patient, but I was not directly involved in the decision making or delivery of care for this patient. (OSBALDO MCKINLEY MD) ANN STRICKLAND APRN May 28, 2021 11:00 OSBALDO MCKINLEY MD May 28, 2021 19:25
[2021-05-28 11:01] LABS: CALCIUM 9.4 MG/DL (8.5-10.1)
[2021-05-28 11:02] LABS: PROTHROMBIN TIME PATIENT 22.8 SEC (12.2-14.7); TOTAL PROTEIN 7.3 GM/DL (6.4-8.2)
[2021-05-28 11:04] LABS: BILIRUBIN,TOTAL 1.8 MG/DL (0.1-1.0)
[2021-05-28 11:06] LABS: CREATININE SERUM 1.4 MG/DL (0.60-1.30)
[2021-05-28 11:09] LABS: MAGNESIUM 2.1 MG/DL (1.6-2.4)
[2021-05-28] MEDS ORDERED: fentaNYL INJ 100 MCG/2 ML AMP IVP ONE (11:15)
--- NOTE | 2021-05-28 11:26 | Diagnostic Imaging Report ---
EXAMINATION: Chest 1 view HISTORY: Chest pain COMPARISON: 03/14/2021 FINDINGS: Stable marginally cardiac silhouette. Left-sided cardiac device is unchanged. There is a small left pleural effusion with adjacent atelectasis or consolidation. Mild interstitial opacities within both lungs. The osseous structures are intact. IMPRESSION: 1. Small left pleural effusion with adjacent atelectasis or consolidation. 2. Patchy interstitial opacities within the lungs which can be seen with pulmonary edema or atypical infection. Dictated by: Dictated on workstation # [id number]
[2021-05-28] MEDS ORDERED: fentaNYL INJ 100 MCG/2 ML AMP ONE (11:36)
[2021-05-28 12:41] LABS: CLARITY,URINE SL CLOUDY; COLOR,URINE ORANGE; GLUCOSE, URINE (UA) TRACE (NEGATIVE); KETONES,URINE NEGATIVE (NEGATIVE); LEUKOCYTE ESTERASE ,URINE NEGATIVE (NEGATIVE); NITRITE,URINE NEGATIVE (NEGATIVE); PH,URINE 5.5 (5-9); PROTEIN,URINE 2+ (NEGATIVE)
[2021-05-28] MEDS ORDERED: FUROSEMIDE 40 MG/4 ML INJ (LASIX) IVP ONE (12:45)
[2021-05-28 12:55] LABS: BACTERIA,URINE FEW /HPF; BILIRUBIN,URINE 2+ (NEGATIVE)
[2021-05-28 12:56] LABS: HYALINE CASTS, URINE >50 /LPF
[2021-05-28 13:00] LABS: AMPHETAMINE SCREEN, URINE NEGATIVE (NEGATIVE); BARBITURATE SCREEN URINE NEGATIVE (NEGATIVE); BENZODIAZEPINES SCREEN URINE NEGATIVE (NEGATIVE); CANNABINOID SCREEN, URINE NEGATIVE (NEGATIVE); COCAINE SCREEN URINE NEGATIVE (NEGATIVE); METHADONE STAT NEGATIVE (NEGATIVE); METHAMPHETAMINE SCREEN URINE S NEGATIVE (NEGATIVE); OPIATE SCREEN URINE NEGATIVE (NEGATIVE); OXYCODONE STAT NEGATIVE (NEGATIVE); PROPOXYPHENE STAT NEGATIVE (NEGATIVE); TRICYCLIC ANTIDEPRESSANTS SCRE NEGATIVE (NEGATIVE)
--- NOTE | 2021-05-28 13:22 | Diagnostic Imaging Report ---
EXAMINATION: CT head without contrast. TECHNIQUE: Multiple contiguous axial images were obtained through the brain without the use of intravenous contrast. All CT scans use one or more of the following dose optimizing techniques: automated exposure control, MA and/or KvP adjustment based on patient size and exam type or iterative reconstruction. HISTORY: headache COMPARISON: None available. FINDINGS: The grimes-white matter differentiation is normal. No mass effect or midline shift. The ventricles are normal in size and configuration. Basilar cisterns are patent. There are no intra- or extra-axial fluid collections. There is no intracranial hemorrhage. The orbits are normal. Paranasal sinuses are normal. Mastoid air cells are clear. No soft tissue abnormality is seen. No osseous lesions or fractures are seen. IMPRESSION: 1. No acute intracranial abnormality. Dictated by: Dictated on workstation # [id number]
[2021-05-28 16:10] VITALS: BP 102/82
== END 2021-05-28 16:10 | disposition home or self-care (01) ==
LOC: EDUNIT# 10:19 → ER 10:21
DX: I50.9 Heart failure, unspecified (principal); F19.20 Other psychoactive substance dependence, uncomplicated; I25.2 Old myocardial infarction; I25.10 Atherosclerotic heart disease of native coronary artery without angina pectoris; Z20.822 Contact with and (suspected) exposure to COVID-19; Z79.82 Long term (current) use of aspirin; Z79.01 Long term (current) use of anticoagulants; Z79.899 Other long term (current) drug therapy
CPT/HCPCS: 36415; 70450; 71045; 80053; 80306; 81000; 83735; 83874; 83880; 84145; 84484; 85025; 85610; 85730; 87088; 87636; 93005; 93041

== ENCOUNTER 2021-06-07 16:34 | Emergency (ER) | payer MEDICAID ==
[~2021-06-07] VITALS: Ht 187 cm; Wt 99.7 kg
--- NOTE | 2021-06-07 17:22 | Diagnostic Imaging Report ---
EXAMINATION: Chest radiograph, portable AP view. DATE: 06/07/2021 5:14 PM. INDICATION: 51-year-old male, cough. Shortness breath. COMPARISON: May 28, 2021. FINDINGS: There is a left-sided cardiac assist device with lead. Heart size and mediastinal contours are unchanged. There is no identified pneumothorax. There is nonspecific bibasilar airspace consolidation. There are additional interstitial and/or alveolar opacities. There is a right-sided PICC line with tip overlying the upper SVC. IMPRESSION: 1. Grossly unchanged nonspecific left greater than right bibasilar airspace consolidation which may relate to effusions, atelectasis and/or infiltrate. 2. Unchanged bilateral interstitial and/or alveolar opacities. This may reflect atypical infection, edema and/or pneumonitis. Dictated by: Dictated on workstation # [id number]
[2021-06-07 17:43] LABS: BASOPHILS # (AUTO) 0.1 10^3/uL (0.0-0.1); BASOPHILS % (AUTO) 1 % (0-10); EOSINOPHILS # (AUTO) 0.1 10^3/uL (0.0-0.3); EOSINOPHILS % (AUTO) 1 % (0-10); HEMATOCRIT 40 % (40-54); HEMOGLOBIN 11.7 g/dL (13.3-17.7); LYMPHOCYTES # (AUTO) 1.3 10^3/uL (1.0-4.0); LYMPHOCYTES % (AUTO) 13 % (12-44); MEAN CORPUSCULAR HEMOGLOBIN 26 pg (25-34); MEAN CORPUSCULAR HGB CONC 29 g/dL (32-36); MEAN CORPUSCULAR VOLUME 88 fL (80-99); MONOCYTES # (AUTO) 1.1 10^3/uL (0.0-1.0); MONOCYTES % (AUTO) 11 % (0-12); NEUTROPHILS # (AUTO) 7.7 10^3/uL (1.8-7.8); NEUTROPHILS % (AUTO) 75 % (42-75); PLATELET COUNT 306 10^3/uL (130-400); WHITE BLOOD COUNT 10.3 10^3/uL (4.3-11.0)
[2021-06-07 17:54] LABS: ALBUMIN 3.4 GM/DL (3.2-4.5); POTASSIUM 4.9 MMOL/L (3.6-5.0)
--- NOTE | 2021-06-07 17:55 | ED General ---
General Chief Complaint: Cough/Cold/Flu Symptoms Stated Complaint: SOB/COUGH Nursing Triage Note: PT STATES HAVING A COUGH SINE YESTERDAY, COUGHING MAKES HIM VOMIT SOMETIMES Source of Information: Patient Exam Limitations: No Limitations (ANN STRICKLAND APRN) History of Present Illness Date Seen by Provider: Jun 07, 2021 Time Seen by Provider: 17:55 Initial Comments To ER with a persistent and bothersome cough that is nonproductive. No fevers or chills. He has severe cardiomyopathy, is on Lasix but has not missed any doses. He is dependent on a dobutamine drip through [facility] pump. Timing/Duration: 1-2 Days Severity: Moderate Associated Systoms: Denies Symptoms (ANN STRICKLAND APRN) Allergies and Home Medications Allergies Coded Allergies: No Known Drug Allergies (Unverified , 05/29/11) Patient Home Medication List Home Medication List Reviewed: Yes (ANN STRICKLAND APRN) Albuterol Sulfate (Proair Hfa) 1 Puff Puff, 2 PUFF IH Q4H PRN for SHORTNESS OF BREATH, (Reported) Entered as Reported by: CARMENZA HUDSON on 03/09/21 1036 Amiodarone HCl (Amiodarone HCl) 200 Mg Tablet, 400 MG PO BID Prescribed by: TANG TERRY on 03/23/21 1255 Apixaban (Eliquis) 5 Mg Tablet, 5 MG PO BID, (Reported) Entered as Reported by: CARMENZA HUDSON on 03/09/21 1036 Aspirin (Aspirin EC) 81 Mg Tablet.dr, 81 MG PO DAILY, (Reported) Entered as Reported by: CARMENZA HUDSON on 02/12/21 1412 Carvedilol (Carvedilol) 6.25 Mg Tablet, 6.25 MG PO BID Prescribed by: TANG TERRY on 03/23/21 1255 Digoxin (Digoxin) 250 Mcg Tablet, 250 MCG PO DAILY Prescribed by: TANG TERRY on 03/23/21 1255 Furosemide (Furosemide) 40 Mg Tablet, 40 MG PO DAILY Prescribed by: TANG TERRY on 03/23/21 1256 Rosuvastatin Calcium (Rosuvastatin Calcium) 20 Mg Tablet, 20 MG PO DAILY Prescribed by: TANG TERRY on 03/23/21 1256 Review of Systems Review of Systems Constitutional: see HPI EENTM: see HPI Respiratory: no symptoms reported Cardiovascular: no symptoms reported Genitourinary: no symptoms reported Musculoskeletal: no symptoms reported Skin: no symptoms reported Psychiatric/Neurological: No Symptoms Reported Hematologic/Lymphatic: No Symptoms Reported Immunological/Allergic: no symptoms reported (You guys) (ANN STRICKLAND APRN) Past Bdmlzbr-Mivrle-Wylhsj Hx Immunizations Up To Date Tetanus Booster (TDap): Unknown (ANN STRICKLAND APRN) Seasonal Allergies Seasonal Allergies: No (ANN STRICKLAND APRN) Past Medical History Surgery/Hospitalization HX: [place], STENTS X3, ICD, SHOULDER SX Surgeries: Yes (LEFT SHOULDER BICEPS TENDON, HEART STENTS 02/01/19) Defibrillator Respiratory: No Currently Using CPAP: No Currently Using BIPAP: No Cardiac: Yes (heart failure) Cardiomyopathy, Coronary Artery Disease, Heart Attack, Valvular Heart Disease Neurological: No Sexually Transmitted Disease: No HIV/AIDS: No Genitourinary: No Gastrointestinal: No Musculoskeletal: Yes (LEFT SHOULDER SURGERY) Endocrine: No HEENT: No Loss of Vision: Denies Hearing Impairment: Denies Cancer: No Psychosocial: No Integumentary: No Blood Disorders: No (ANN STRICKLAND APRN) Family Medical History Diabetes mellitus 19 MOTHER, Onset:Unknown Myocardial infarction 19 MOTHER Heart Disease, Diabetes (ANN STRICKLAND APRN) Physical Exam Vital Signs Vital Signs - First Documented 06/07/21 17:05 Temp 36.9 Pulse 111 Resp 22 B/P (MAP) 101/81 (88) Pulse Ox 100 O2 Delivery Nasal Cannula O2 Flow Rate 2.00 (MAL ANAYAA K DO) Vital Signs Capillary Refill : Less Than 3 Seconds (ANN STRICKLAND APRN) Height, Weight, BMI Height: 6'2.00" Weight: 225lbs. 15.0oz. 102.063598gr; 28.00 BMI Method:Stated General Appearance: No Apparent Distress, WD/WN Eyes: Bilateral Eye Normal Inspection, Bilateral Eye PERRL, Bilateral Eye EOMI Neck: Full Range of Motion, Normal Inspection Respiratory: No Accessory Muscle Use, No Respiratory Distress Gastrointestinal: Normal Bowel Sounds, Non Tender, Soft Extremity: Normal Capillary Refill, Normal Inspection Neurologic/Psychiatric: Alert, Oriented x3 Skin: Normal Color, Warm/Dry (ANN STRICKLAND APRN) Progress/Results/Core Measures Suspected Sepsis SIRS Temperature: Pulse: 111 Respiratory Rate: 22 Laboratory Tests 06/07/21 17:25: White Blood Count 10.3 Blood Pressure 101 /81 Mean: 88 Laboratory Tests 06/07/21 17:25: Creatinine 1.30, Platelet Count 306, Total Bilirubin 2.0H (ANN STRICKLAND APRN) Results/Orders Lab Results Laboratory Tests Test 06/07/21 16:55 06/07/21 17:25 06/07/21 18:20 Range/Units Influenza Type A (RT-PCR) Not Detected Not Detecte Influenza Type B (RT-PCR) Not Detected Not Detecte SARS-CoV-2 RNA (RT-PCR) Not Detected Not Detecte White Blood Count 10.3 4.3-11.0 10^3/uL Red Blood Count 4.57 4.30-5.52 10^6/uL Hemoglobin 11.7 L 13.3-17.7 g/dL Hematocrit 40 40-54 % Mean Corpuscular Volume 88 80-99 fL Mean Corpuscular Hemoglobin 26 25-34 pg Mean Corpuscular Hemoglobin Concent 29 L 32-36 g/dL Red Cell Distribution Width 18.6 H 10.0-14.5 % Platelet Count 306 130-400 10^3/uL Mean Platelet Volume 10.0 9.0-12.2 fL Immature Granulocyte % (Auto) 1 % Neutrophils (%) (Auto) 75 42-75 % Lymphocytes (%) (Auto) 13 12-44 % Monocytes (%) (Auto) 11 0-12 % Eosinophils (%) (Auto) 1 0-10 % Basophils (%) (Auto) 1 0-10 % Neutrophils # (Auto) 7.7 1.8-7.8 10^3/uL Lymphocytes # (Auto) 1.3 1.0-4.0 10^3/uL Monocytes # (Auto) 1.1 H 0.0-1.0 10^3/uL Eosinophils # (Auto) 0.1 0.0-0.3 10^3/uL Basophils # (Auto) 0.1 0.0-0.1 10^3/uL Immature Granulocyte # (Auto) 0.1 0.0-0.1 10^3/uL Sodium Level 134 L 135-145 MMOL/L Potassium Level 4.9 3.6-5.0 MMOL/L Chloride Level 101 98-107 MMOL/L Carbon Dioxide Level 16 L 21-32 MMOL/L Anion Gap 17 H 5-14 MMOL/L Blood Urea Nitrogen 19 H 7-18 MG/DL Creatinine 1.30 0.60-1.30 MG/DL Estimat Glomerular Filtration Rate 58 BUN/Creatinine Ratio 15 Glucose Level 101 70-105 MG/DL Calcium Level 9.0 8.5-10.1 MG/DL Corrected Calcium 9.5 8.5-10.1 MG/DL Total Bilirubin 2.0 H 0.1-1.0 MG/DL Aspartate Amino Transf (AST/SGOT) 30 5-34 U/L Alanine Aminotransferase (ALT/SGPT) 22 0-55 U/L Alkaline Phosphatase 108 40-136 U/L B-Type Natriuretic Peptide 2556.6 H <100.0 PG/ML Total Protein 6.9 6.4-8.2 GM/DL Albumin 3.4 3.2-4.5 GM/DL Urine Color ORANGE Urine Clarity SL CLOUDY Urine pH 5.0 5-9 Urine Specific [place] >=1.030 1.016-1.022 Urine Protein 2+ H NEGATIVE Urine Glucose (UA) NEGATIVE NEGATIVE Urine Ketones TRACE H NEGATIVE Urine Nitrite POSITIVE H NEGATIVE Urine Bilirubin 2+ H NEGATIVE Urine Urobilinogen 2.0 < = 1.0 MG/DL Urine Leukocyte Esterase NEGATIVE NEGATIVE Urine RBC (Auto) NEGATIVE NEGATIVE Urine RBC RARE /HPF Urine WBC 0-2 /HPF Urine Crystals NONE /LPF Urine Bacteria FEW H /HPF Urine Casts PRESENT /LPF Urine Hyaline Casts 25-50 H /LPF Urine Mucus MODERATE H /LPF Urine Culture Indicated NO Urine Opiates Screen NEGATIVE NEGATIVE Urine Oxycodone Screen NEGATIVE NEGATIVE Urine Methadone Screen NEGATIVE NEGATIVE Urine Propoxyphene Screen NEGATIVE NEGATIVE Urine Barbiturates Screen NEGATIVE NEGATIVE Ur Tricyclic Antidepressants Screen NEGATIVE NEGATIVE Urine Phencyclidine Screen NEGATIVE NEGATIVE Urine Amphetamines Screen NEGATIVE NEGATIVE Urine Methamphetamines Screen NEGATIVE NEGATIVE Urine Benzodiazepines Screen NEGATIVE NEGATIVE Urine Cocaine Screen NEGATIVE NEGATIVE Urine Cannabinoids Screen NEGATIVE NEGATIVE (ALYSSA ANAYA DO) Vital Signs/I&O 06/07/21 06/07/21 06/07/21 17:05 19:29 20:17 Temp 36.9 36.9 36.9 Pulse 111 110 Resp 22 20 B/P (MAP) 101/81 (88) 121/87 Pulse Ox 100 97 O2 Delivery Nasal Cannula Room Air O2 Flow Rate 2.00 (JACLYNALYSSA Mil BOATENG) Vital Signs/I&O Capillary Refill : Less Than 3 Seconds (ANN STRICKLAND APRN) Blood Pressure Mean: 88 Departure Communication (Admissions) NAME: YURIY MARTINI REC#: [id number] PT STATUS: REG ER : 1970 PHYSICIAN: ANN STRICKLAND APRN ADMIT DATE: 06/07/21/ER Signed Date of Exam:06/07/21 CHEST 1 VIEW, AP/PA ONLY EXAMINATION: Chest radiograph, portable AP view. DATE: 06/07/2021 5:14 PM. INDICATION: 51-year-old male, cough. Shortness breath. COMPARISON: May 28, 2021. FINDINGS: There is a left-sided cardiac assist device with lead. Heart size and mediastinal contours are unchanged. There is no identified pneumothorax. There is nonspecific bibasilar airspace consolidation. There are additional interstitial and/or alveolar opacities. There is a right-sided PICC line with tip overlying the upper SVC. IMPRESSION: 1. Grossly unchanged nonspecific left greater than right bibasilar airspace consolidation which may relate to effusions, atelectasis and/or infiltrate. 2. Unchanged bilateral interstitial and/or alveolar opacities. This may reflect atypical infection, edema and/or pneumonitis. Dictated by: Dictated on workstation # [id number] Dict: 06/07/211716 Trans: 06/07/211722 [facility] [id number] Interpreted by: CRESCENCIO PERSAUD MD Electronically signed by: CRESCENCIO PERSAUD MD 06/07/21 172 (ANN STRICKLAND APRN) Impression Primary Impression: HFrEF (heart failure with reduced ejection fraction) Disposition: 01 HOME, SELF-CARE Condition: Improved Departure-Patient Inst. Decision time for Depature: 20:00 (ANN STRICKLAND APRN) Referrals: HECTOR MEMBRENO MD (PCP/Family) Primary Care Physician Patient Instructions: Heart Failure, Adult Add. Discharge Instructions: All discharge instructions reviewed with patient and/or family. Voiced understanding. ATTENDING PHYSICIAN NOTE: I WAS PHYSICALLY PRESENT ER PHYSICIAN WHEN THIS PATIENT WAS IN ER, BUT I WAS NOT INVOLVED IN ANY DECISION MAKING OR ANY CARE OF THIS PATIENT. (ALYSSA ANAYA DO) ANN STRICKLAND APRN Jun 07, 2021 17:55 ALYSSA ANAYA DO Jun 10, 2021 04:19
[2021-06-07 17:56] LABS: TOTAL PROTEIN 6.9 GM/DL (6.4-8.2)
[2021-06-07 18:00] LABS: CREATININE SERUM 1.3 MG/DL (0.60-1.30)
[2021-06-07] MEDS ORDERED: PROMETHAZINE/ CODEINE SYRUP 5 ML UDC PO ONE (18:15)
[2021-06-07] MEDS ORDERED: RT-ALBUTEROL/IPRATROPIUM 3 ML (DUONEB) VIAL INH ONE (18:15)
[2021-06-07 18:25] LABS: CLARITY,URINE SL CLOUDY; COLOR,URINE ORANGE; GLUCOSE, URINE (UA) NEGATIVE (NEGATIVE); KETONES,URINE TRACE (NEGATIVE); LEUKOCYTE ESTERASE ,URINE NEGATIVE (NEGATIVE); NITRITE,URINE POSITIVE (NEGATIVE); PROTEIN,URINE 2+ (NEGATIVE)
[2021-06-07 18:41] LABS: AMPHETAMINE SCREEN, URINE NEGATIVE (NEGATIVE); BARBITURATE SCREEN URINE NEGATIVE (NEGATIVE); BENZODIAZEPINES SCREEN URINE NEGATIVE (NEGATIVE); CANNABINOID SCREEN, URINE NEGATIVE (NEGATIVE); COCAINE SCREEN URINE NEGATIVE (NEGATIVE); METHADONE STAT NEGATIVE (NEGATIVE); METHAMPHETAMINE SCREEN URINE S NEGATIVE (NEGATIVE); OPIATE SCREEN URINE NEGATIVE (NEGATIVE); OXYCODONE STAT NEGATIVE (NEGATIVE); PROPOXYPHENE STAT NEGATIVE (NEGATIVE); TRICYCLIC ANTIDEPRESSANTS SCRE NEGATIVE (NEGATIVE)
[2021-06-07 18:42] LABS: BACTERIA,URINE FEW /HPF; BILIRUBIN,URINE 2+ (NEGATIVE); HYALINE CASTS, URINE 25-50 /LPF; RBC,URINE RARE /HPF; WBC,URINE 0-2 /HPF
[2021-06-07] MEDS ORDERED: FUROSEMIDE 40 MG/4 ML INJ (LASIX) IVP ONE (19:00)
[2021-06-07] MEDS ORDERED: HYDROcodone/APAP 5 MG/325 MG (LORTAB) TAB PO ONE (19:30)
[2021-06-07] MEDS ORDERED: RX-ACETAMINOPHEN/CODEINE TAB PPK #4 PO SCH (20:15)
[2021-06-07 20:17] VITALS: BP 121/87
== END 2021-06-07 20:16 | disposition home or self-care (01) ==
LOC: EDUNIT# 16:34 → ER 16:36
DX: I50.20 Unspecified systolic (congestive) heart failure (principal); I25.2 Old myocardial infarction; I25.10 Atherosclerotic heart disease of native coronary artery without angina pectoris; Z97.8 Presence of other specified devices; Z79.01 Long term (current) use of anticoagulants; Z79.82 Long term (current) use of aspirin; Z79.899 Other long term (current) drug therapy; Z95.5 Presence of coronary angioplasty implant and graft; Z95.810 Presence of automatic (implantable) cardiac defibrillator; Z20.822 Contact with and (suspected) exposure to COVID-19
CPT/HCPCS: 36415; 71045; 80053; 80306; 81000; 83880; 85025; 87636; 93005

== ENCOUNTER 2021-08-07 13:23 | Emergency (ER) | payer MEDICAID ==
[~2021-08-07] VITALS: Ht 187 cm; Wt 69.0 kg
--- NOTE | 2021-08-07 13:43 | ED General ---
General Stated Complaint: ABNORMAL LABS Source of Information: Patient Exam Limitations: No Limitations History of Present Illness Date Seen by Provider: Aug 07, 2021 Time Seen by Provider: 13:28 Initial Comments Patient is a 51-year-old male with a history of ischemic cardiomyopathy on a dobutamine pump who presents to the emergency department at the direction of the heart clinic for abnormal laboratory studies. Patient had routine labs drawn this morning and was called and advised that his potassium was very low as is his sodium level and his renal function is greatly increased. He has been fighting cardiomyopathy over the past year and a half. He denies any specific complaints such as shortness of breath, productive cough, fevers or chills. No nausea or vomiting. He has been constipated over the last 3 or 4 days taking MiraLAX. Otherwise he states he is compliant with his daily medications. He has a PICC line in the right upper arm with his dobutamine infusing. He brings a copy of his laboratory from this morning to this visit. He was given 4 tablets of potassium prior to coming over. He states his blood pressure is always a little bit low. Currently 88 systolic which on reviewing vital signs from prior visits looks to be about his normal. All other review of systems reviewed and negative except as stated. Associated Systoms: Denies Symptoms Allergies and Home Medications Allergies Coded Allergies: No Known Drug Allergies (Unverified , 05/29/11) Patient Home Medication List Home Medication List Reviewed: Yes Albuterol Sulfate (Proair Hfa) 1 Puff Puff, 2 PUFF IH Q4H PRN for SHORTNESS OF BREATH, (Reported) Entered as Reported by: CARMENZA HUDSON on 03/09/21 1036 Amiodarone HCl (Amiodarone HCl) 200 Mg Tablet, 400 MG PO BID Prescribed by: TANG TERRY on 03/23/21 1255 Apixaban (Eliquis) 5 Mg Tablet, 5 MG PO BID, (Reported) Entered as Reported by: CARMENZA HUDSON on 03/09/21 1036 Aspirin (Aspirin EC) 81 Mg Tablet.dr, 81 MG PO DAILY, (Reported) Entered as Reported by: CARMENZA HUDSON on 02/12/21 1412 Carvedilol (Carvedilol) 6.25 Mg Tablet, 6.25 MG PO BID Prescribed by: TANG TERRY on 03/23/21 1255 Digoxin (Digoxin) 250 Mcg Tablet, 250 MCG PO DAILY Prescribed by: TANG TERRY on 03/23/21 1255 Furosemide (Furosemide) 40 Mg Tablet, 40 MG PO DAILY Prescribed by: TANG TERRY on 03/23/21 1256 Rosuvastatin Calcium (Rosuvastatin Calcium) 20 Mg Tablet, 20 MG PO DAILY Prescribed by: TANG TERRY on 03/23/21 1256 Review of Systems Review of Systems Constitutional: see HPI EENTM: no symptoms reported Respiratory: no symptoms reported, other (usually on 2.5-3L O2 all the time) Cardiovascular: no symptoms reported Gastrointestinal: constipation (3-4 days) Genitourinary: no symptoms reported Musculoskeletal: no symptoms reported Skin: no symptoms reported All Other Systems Reviewed Negative Unless Noted: Yes Past Kqxxyzh-Eylkkb-Gjtlds Hx Immunizations Up To Date Tetanus Booster (TDap): Unknown Seasonal Allergies Seasonal Allergies: No Past Medical History Surgery/Hospitalization HX: [place], [facility] X3, ICD, SHOULDER SX Surgeries: Yes (LEFT SHOULDER BICEPS TENDON, HEART STENTS 02/01/19) Defibrillator Respiratory: No Currently Using CPAP: No Currently Using BIPAP: No Cardiac: Yes (heart failure) Cardiomyopathy, Coronary Artery Disease, Heart Attack, Valvular Heart Disease Neurological: No Sexually Transmitted Disease: No HIV/AIDS: No Genitourinary: No Gastrointestinal: No Musculoskeletal: Yes (LEFT SHOULDER SURGERY) Endocrine: No HEENT: No Loss of Vision: Denies Hearing Impairment: Denies Cancer: No Psychosocial: No Integumentary: No Blood Disorders: No Family Medical History Diabetes mellitus 19 MOTHER, Onset:Unknown Myocardial infarction 19 MOTHER Heart Disease, Diabetes Physical Exam Vital Signs Vital Signs - First Documented 08/07/21 13:51 Pulse 89 Resp 22 B/P (MAP) 82/64 (70) Pulse Ox 100 O2 Delivery Room Air Capillary Refill : Height, Weight, BMI Height: 6'2.00" Weight: 225lbs. 15.0oz. 102.227394au; 28.00 BMI Method:Stated General Appearance: No Apparent Distress, WD/WN Eyes: Bilateral Eye PERRL, Bilateral Eye EOMI, Bilateral Eye Other (muddy scleare vs slightly icteric bilaterally) HEENT: PERRL/EOMI Neck: Normal Inspection Respiratory: Lungs Clear, Normal Breath Sounds, No Accessory Muscle Use, No Respiratory Distress Cardiovascular: Regular Rate, Rhythm, Normal Peripheral Pulses Gastrointestinal: Non Tender, Soft Extremity: Normal Range of Motion, Pedal Edema (1+ bilateral), Other (PICC line right upper Ext) Neurologic/Psychiatric: Alert, Oriented x3, No Motor/Sensory Deficits, Normal Mood/Affect Skin: Normal Color, Warm/Dry, Other (skin thickening) Progress/Results/Core Measures Suspected Sepsis SIRS Temperature: Pulse: Respiratory Rate: Laboratory Tests 08/07/21 13:30: White Blood Count 7.7 Blood Pressure / Mean: Laboratory Tests 08/07/21 13:30: Creatinine 2.86H, Platelet Count 156, Total Bilirubin 3.7H Results/Orders Lab Results Laboratory Tests Test 08/07/21 13:30 Range/Units White Blood Count 7.7 4.3-11.0 10^3/uL Red Blood Count 4.82 4.30-5.52 10^6/uL Hemoglobin 12.5 L 13.3-17.7 g/dL Hematocrit 39 L 40-54 % Mean Corpuscular Volume 80 80-99 fL Mean Corpuscular Hemoglobin 26 25-34 pg Mean Corpuscular Hemoglobin Concent 32 32-36 g/dL Red Cell Distribution Width 25.2 H 10.0-14.5 % Platelet Count 156 130-400 10^3/uL Mean Platelet Volume 10.0 9.0-12.2 fL Immature Granulocyte % (Auto) 0 % Neutrophils (%) (Auto) 81 H 42-75 % Lymphocytes (%) (Auto) 7 L 12-44 % Monocytes (%) (Auto) 11 0-12 % Eosinophils (%) (Auto) 0 0-10 % Basophils (%) (Auto) 0 0-10 % Neutrophils # (Auto) 6.2 1.8-7.8 10^3/uL Lymphocytes # (Auto) 0.5 L 1.0-4.0 10^3/uL Monocytes # (Auto) 0.9 0.0-1.0 10^3/uL Eosinophils # (Auto) 0.0 0.0-0.3 10^3/uL Basophils # (Auto) 0.0 0.0-0.1 10^3/uL Immature Granulocyte # (Auto) 0.0 0.0-0.1 10^3/uL Percent Immature Platelet Fraction 5.9 0.0-7.6 % Sodium Level 120 *L 135-145 MMOL/L Potassium Level 2.9 L 3.6-5.0 MMOL/L Chloride Level 75 L 98-107 MMOL/L Carbon Dioxide Level 28 21-32 MMOL/L Anion Gap 17 H 5-14 MMOL/L Blood Urea Nitrogen 46 H 7-18 MG/DL Creatinine 2.86 H 0.60-1.30 MG/DL Estimat Glomerular Filtration Rate 26 BUN/Creatinine Ratio 16 Glucose Level 140 H 70-105 MG/DL Calcium Level 9.7 8.5-10.1 MG/DL Corrected Calcium 9.6 8.5-10.1 MG/DL Magnesium Level 2.0 1.6-2.4 MG/DL Total Bilirubin 3.7 H 0.1-1.0 MG/DL Aspartate Amino Transf (AST/SGOT) 65 H 5-34 U/L Alanine Aminotransferase (ALT/SGPT) 52 0-55 U/L Alkaline Phosphatase 147 H 40-136 U/L Total Protein 7.6 6.4-8.2 GM/DL Albumin 4.1 3.2-4.5 GM/DL My Orders Orders - ELLYN ROMERO MD Ed Iv/Invasive Line Start (08/07/21 13:36) Cbc With Automated Diff (08/07/21 13:36) Comprehensive Metabolic Panel (08/07/21 13:36) Magnesium (08/07/21 13:36) Ekg Tracing (08/07/21 13:36) Chest 1 View, Ap/Pa Only (08/07/21 13:36) Manual Differential (08/07/21 13:30) Potassium Cl 10 Meq Ivpb (08/07/21 15:00) Vital Signs/I&O 08/07/21 13:51 Pulse 89 Resp 22 B/P (MAP) 82/64 (70) Pulse Ox 100 O2 Delivery Room Air Capillary Refill : Progress Note #1: Time: 14:40 Progress Note First call made to to try and get in touch with the heart failure specialist that referred Mr Renteria to the Emergency Department - Dr Nath Progress Note #2: Time: 14:59 Progress Note Patient called back, the heart failure team would like the patient transferred to to the ICU. Instructions were to start him on some potassium replacement IV. We are coordinating transportation services at this time pending bed assignment at . ECG Initial ECG Impression Date: Aug 07, 2021 Initial ECG Impression Time: 13:54 Initial ECG Rate: 87 Initial ECG Rhythm: Normal Sinus Initial ECG Intervals LA interval 199 QRS [address] depression noted in lead V3, no elevation noted. Diffusely wide- complex sinus rhythm without ectopy Diagnostic Imaging Diagonstic Imaging: Xray Plain Films/CT/US/NM/MRI: chest Comments [facility], [place] NAME: YURIY RENTERIA [facility] REC#: [id number] PT STATUS: REG ER : 1970 PHYSICIAN: ELLYN ROMERO MD ADMIT DATE: 08/07/21/ER Draft Date of Exam:08/07/21 CHEST 1 VIEW, AP/PA ONLY CLINICAL INDICATION: Patient with severe cardiomegaly. EXAM: Portable chest x-ray upright view. COMPARISON: Chest x-ray dated 06/07/2021. FINDINGS: There is stable cardiomegaly. There is no significant pulmonary vascular congestion which has slightly improved in the interim. There is interval improved aeration of both lungs with resolution of previously seen bilateral lung airspace opacities. There is minimal left lung base atelectasis. There is no pleural effusion or pneumothorax. There are degenerative spurs involving the thoracic spine. Cardiac pacemaker/AICD again seen overlying the left chest. IMPRESSION: 1: Stable cardiomegaly with no significant pulmonary vascular congestion which has improved in the interim. 2: There is interval improved aeration of both lungs with resolution of previously seen bilateral lung airspace opacities. There is minimal left basilar atelectasis. Dictated on workstation # [id number] Dict: 08/07/21 1407 Trans: 08/07/21 1414 [id number] Interpreted by: JOSE CASTILLO MD Electronically signed by: Departure Impression Primary Impression: Hypokalemia Additional Impressions: Chronic combined systolic (congestive) and diastolic (congestive) heart failure Hyponatremia Acute renal failure Qualified Codes: N17.9 - Acute kidney failure, unspecified Disposition: XFER SHT-TRM HOSP Condition: Stable Transfer Transfer Reason: Exceeds level of care Time Spoke to Accepting Phy: 14:55 Transfer Progress Notes accepted to the ICU per Dr Karthik Drummond Transfer Facility: Method of Transfer: EMS Departure-Patient Inst. Referrals: HECTOR MEMBRENO MD (PCP/Family) Primary Care Physician ELLYN ROMERO MD Aug 07, 2021 13:43
[2021-08-07 13:47] LABS: EOSINOPHILS % (AUTO) 0 % (0-10); HEMOGLOBIN 12.5 g/dL (13.3-17.7)
[2021-08-07 13:49] LABS: BASOPHILS % (AUTO) 0 % (0-10); HEMATOCRIT 39 % (40-54); LYMPHOCYTES # (AUTO) 0.5 10^3/uL (1.0-4.0); LYMPHOCYTES % (AUTO) 7 % (12-44); MEAN CORPUSCULAR HEMOGLOBIN 26 pg (25-34); MEAN CORPUSCULAR HGB CONC 32 g/dL (32-36); MEAN CORPUSCULAR VOLUME 80 fL (80-99); MONOCYTES # (AUTO) 0.9 10^3/uL (0.0-1.0); MONOCYTES % (AUTO) 11 % (0-12); NEUTROPHILS # (AUTO) 6.2 10^3/uL (1.8-7.8); NEUTROPHILS % (AUTO) 81 % (42-75); PLATELET COUNT 156 10^3/uL (130-400); WHITE BLOOD COUNT 7.7 10^3/uL (4.3-11.0)
[2021-08-07 13:57] LABS: ALBUMIN 4.1 GM/DL (3.2-4.5); POTASSIUM 2.9 MMOL/L (3.6-5.0)
[2021-08-07 13:58] LABS: CALCIUM 9.7 MG/DL (8.5-10.1)
[2021-08-07 13:59] LABS: TOTAL PROTEIN 7.6 GM/DL (6.4-8.2)
[2021-08-07 14:01] LABS: BILIRUBIN,TOTAL 3.7 MG/DL (0.1-1.0)
[2021-08-07 14:03] LABS: CREATININE SERUM 2.86 MG/DL (0.60-1.30)
--- NOTE | 2021-08-07 14:16 | Diagnostic Imaging Report ---
CLINICAL INDICATION: Patient with severe cardiomegaly. EXAM: Portable chest x-ray upright view. COMPARISON: Chest x-ray dated 06/07/2021. FINDINGS: There is stable cardiomegaly. There is no significant pulmonary vascular congestion which has slightly improved in the interim. There is interval improved aeration of both lungs with resolution of previously seen bilateral lung airspace opacities. There is minimal left lung base atelectasis. There is no pleural effusion or pneumothorax. There are degenerative spurs involving the thoracic spine. Cardiac pacemaker/AICD again seen overlying the left chest. IMPRESSION: 1: Stable cardiomegaly with no significant pulmonary vascular congestion which has improved in the interim. 2: There is interval improved aeration of both lungs with resolution of previously seen bilateral lung airspace opacities. There is minimal left basilar atelectasis. Dictated by: Dictated on workstation # [id number]
[2021-08-07] MEDS ORDERED: POTASSIUM CL 10MEQ/50ML IVPB 50 ML IV ONE (15:00)
[2021-08-07 15:02] LABS: BAND NEUTROPHILS 4 %; HYPOCHROMASIA SLIGHT; LYMPHOCYTES % (MANUAL) 6 %; MICROCYTOSIS SLIGHT; MONOCYTES % (MANUAL) 10 %; NEUTROPHILS % (MANUAL) 80 %; POIKILOCYTOSIS SLIGHT
[2021-08-07] MEDS ORDERED: HYDROcodone/APAP 5 MG/325 MG (LORTAB) TAB PO ONE (15:30)
[2021-08-07 16:56] VITALS: BP 87/53
== END 2021-08-07 17:05 | disposition short-term general hospital (02) ==
LOC: EDUNIT# 13:23 → ER 13:24
DX: E87.6 Hypokalemia (principal); I50.42 Chronic combined systolic (congestive) and diastolic (congestive) heart failure; E87.1 Hypo-osmolality and hyponatremia; N17.9 Acute kidney failure, unspecified
CPT/HCPCS: 36415; 71045; 80053; 83735; 85007; 85027; 93005